=== PATIENT | female | born 1935 | race Caucasian/White ===

== ENCOUNTER 2017-02-28 21:30 | Observation (INO) | payer OTHER, MEDICARE ==
[~2017-02-28] VITALS: Ht 154.9 cm; Wt 47.6 kg
[2017-02-28] MEDS: DOCUSATE SODIUM 50 MG/SENNA 8.6 MG TAB PO SCH (21:00)
[2017-02-28 21:30] VITALS: BP 127/79; PULSE 79; RESP 16; TEMP 97; O2SAT 95
[~2017-02-28 21:30] MED LIST: ALPR.25 PO; BISACODYL 10 MG SUPP RECTAL PRN; BUME2TAB PO; CARV3.125 PO; LACTULOSE SYRUP 20 GM/30 ML CUP PO PRN; MAGNESIUM HYDROXIDE SUSP 30 ML CUP PO PRN; ONDANSETRON HCL 4 MG/2 ML VIAL IVP PRN; POTA10CA PO; PROT40TA PO; SENNOSIDES 8.6 MG TAB PO PRN; SODIUM CHLORIDE 0.9% FLUSH 10 ML FLUSH IV FLUSH PRN
[2017-02-28 22:00] VITALS: O2SAT 97
[2017-02-28] MEDS ORDERED: TEMAZEPAM 15 MG CAP PO ONE (22:15)
[2017-03-01] MEDS: ENOXAPARIN SODIUM 40 MG/0.4 ML SYRINGE SQ SCH ×2 (00:12→22:07)
[2017-03-01] MEDS: cefTRIAXone INJ 1,000 MG in SODIUM CHLORIDE 0.9% INJ 100 ML IV SCH ×2 (00:12→22:07)
[2017-03-01] MEDS: SODIUM CHLORIDE 0.9% FLUSH 10 ML FLUSH IV FLUSH SCH ×3 (00:13→20:12)
[2017-03-01 01:16] VITALS: BP 121/68; PULSE 83; RESP 18; TEMP 96.4; O2SAT 99
[2017-03-01] MEDS: SODIUM CHLOR 0.9% 1000 ML INJ 1,000 ML IV SCH ×4 (05:02→23:50)
[2017-03-01 07:40] LABS: CHLORIDE 100 MEQ/L (98-107); POTASSIUM 3.4 MEQ/L (3.5-5.1); SODIUM (NA) 144 MEQ/L (136-145)
[2017-03-01 07:43] LABS: ANION GAP 10 MEQ/L (5-15); BICARBONATE 34.4 MEQ/L (21.0-32.0)
[2017-03-01 07:44] LABS: BLOOD UREA NITROGEN 45 MG/DL (7-18)
[2017-03-01 07:46] LABS: ALT (GPT) 21 U/L (10-53); AST (GOT) 23 U/L (15-37)
[2017-03-01 07:47] LABS: GLOMERULAR FILTRATION RATE 36 ML/MIN (>89)
[2017-03-01 07:48] LABS: TOTAL BILIRUBIN ADULT 0.9 MG/DL (0.2-1.0)
[2017-03-01 07:49] LABS: ALKALINE PHOSPHATASE 56 U/L (45-117)
[2017-03-01] MEDS: DOCUSATE SODIUM 50 MG/SENNA 8.6 MG TAB PO SCH ×2 (08:15→20:14)
[2017-03-01] MEDS: ACETAMINOPHEN 325 MG TAB PO PRN (08:22)
[2017-03-01 08:44] VITALS: BP 113/79; PULSE 79; RESP 16; TEMP 96.4; O2SAT 100
[2017-03-01 10:31] VITALS: O2SAT 95
[2017-03-01] MEDS ORDERED: DIGO0.12 PO (11:58)
[2017-03-01] MEDS ORDERED: CARVEDILOL 3.125 MG TAB PO SCH (12:00)
[2017-03-01] MEDS ORDERED: BELLADONNA ALKALOIDS/OPIUM 60 MG SUPP RECTAL ONE (12:15)
[2017-03-01] MEDS ORDERED: OXYBUTYNIN CHLORIDE 5 MG TAB PO ONE (12:30)
--- NOTE | 2017-03-01 12:42 | HHI.HP ---
[facility] Non-Staff Admission Diagnosis Diagnoses: Chief Complaint: urinary complaints, tired Travel History International Travel<30 Days: No Contact w/Intl Traveler <30 Da: No Traveled to Known Affected Are: No History of Present Illness 82 yo F with PMH of recurrent UTIs, HTN, HLD, Afib who came to the [place] ER department for further evaluation. Patient complaints of urinary frequency, pain with urination, suprapubic pain. She was recently in the hospital with the same provblems and she was discharged from SNF recently. The patient feels weak and not able to walk much. She has no fever, she complaints of chills at times. She is also nauseated but did not vomit. No diarrhea or constipation. The patient is a poor historian, history is obtained from the patient, daughter and records. Review of Systems ROS Limitations: Clinical Condition, Poor Historian Except as stated in HPI: all other systems reviewed are Neg Past Family Social History Past Medical History AFib, HNT, GERD, HLD, frequent UTIs Past Surgical History CS Allergies: Uncoded Allergies: antipsycotics (Allergy, Intermediate, Confusion, 03/01/17) Family History Heart problems runs in family. No h/o cancer or strokes. Social History Used to smoke, quit 40 years ago. No EtOH use or illicit drug use. Physical Exam Vital Signs Vital Signs Date Time Temp Pulse Resp B/P Pulse Ox O2 Delivery O2 Flow Rate FiO2 03/01/17 10:31 95 21 03/01/17 09:22 20 03/01/17 08:44 96.4 79 16 113/79 100 03/01/17 05:56 03/01/17 01:16 96.4 83 18 121/68 99 02/28/17 22:00 97 21 02/28/17 21:30 97.0 79 16 127/79 95 Physical Exam GENERAL: This is a skinny elderly female, well-nourished, well-developed patient , in no apparent distress. SKIN: No rashes, ecchymoses or lesions. Cool and dry. HEAD: Atraumatic. Normocephalic. No temporal or scalp tenderness. EYES: Pupils equal round and reactive. Extraocular motions intact. No scleral icterus. No injection or drainage. ENT: Nose without bleeding, purulent drainage or septal hematoma. Throat without erythema, tonsillar hypertrophy or exudate. Uvula midline. Airway patent. NECK: Trachea midline. No JVD or lymphadenopathy. Supple, nontender, no meningeal signs. CARDIOVASCULAR: Regular rate and rhythm without murmurs, gallops, or rubs. RESPIRATORY: Clear to auscultation. Breath sounds equal bilaterally. No wheezes , rales, or rhonchi. GASTROINTESTINAL: Abdomen soft, non-tender, nondistended. No hepato-splenomegaly , or palpable masses. Suprapubic pain, distended bladder. No guarding. MUSCULOSKELETAL: Extremities without clubbing, cyanosis, or edema. No joint tenderness, effusion, or edema noted. No calf tenderness. Negative Homans sign bilaterally. NEUROLOGICAL: Awake and alert. Cranial nerves II through XII intact. Motor and sensory grossly within normal limits. Five out of 5 muscle strength in all muscle groups. Normal speech. Laboratory Laboratory Tests Test 03/01/17 06:45 Sodium Level 144 Potassium Level 3.4 Chloride Level 100 Carbon Dioxide Level 34.4 Anion Gap 10 Blood Urea Nitrogen 45 Creatinine 1.40 Estimat Glomerular Filtration 36 Rate Random Glucose 90 Calcium Level 8.9 Total Bilirubin 0.9 Aspartate Amino Transf 23 (AST/SGOT) Alanine Aminotransferase 21 (ALT/SGPT) Alkaline Phosphatase 56 Total Protein 6.4 Albumin 2.8 Result Diagram: 03/01/17 0645 Assessment and Plan Assessment and Plan 82 yo F with : Recurrent UTIs. Without urosepsis Urinary retention WALESKA poss on CKD, however unknown kidney baseline. On IVF. Monitor Received Zosyn in the ED. Will give rocephin IV Urine cultures, blood cultures obtained in the ER and pending Patient with urinary retention, will do straight cath, will consult urology. Will give ditropan. Will give one dose rectal belladona Continue IVF. Monitor Urine OP. Chronic medical problems HTN, HLD, Afib, GERD appears stable at this time. Resume home meds. Discussed with the daughter, patient takes coreg once a day and also takes Physical deconditioning. Consult PT. Discussed Condition With patient, nurse, pt. daughter, ED physician Ni Lopez MD 8, 2017 12:42
[2017-03-01] MEDS ORDERED: POTASSIUM CHLORIDE 10 MEQ CONTROLLED RELEASE TAB PO ONE (13:00)
[2017-03-01] MEDS ORDERED: DIGOXIN 0.125 MG TAB PO SCH (13:00)
[2017-03-01 13:22] VITALS: BP 128/79; PULSE 78; RESP 16; TEMP 96.2; O2SAT 98
[2017-03-01] MEDS: BUMETANIDE 1 MG TAB PO SCH ×3 (14:07→21:00)
[2017-03-01] MEDS: ALPRAZolam 0.25 MG TAB PO SCH ×2 (14:07→20:14)
[2017-03-01] MEDS: PANTOPRAZOLE SOD 40 MG DELAYED RELEASE TAB PO SCH ×2 (14:07→20:14)
[2017-03-01 18:04] VITALS: BP 101/61; PULSE 71; RESP 18; TEMP 96.8; O2SAT 99
--- NOTE | 2017-03-01 19:41 | PD.CONS ---
HPI Service Urology Consult Requested By Reason for Consult UTI, retention Primary Care Physician Non-Staff Diagnosis: History of Present Illness 82yo female transferred from [place] ED with history of HTN and afib admitted for UTI seen in consultation for urinary retention. Patient reports frequency with urgency and incontinence. Unclear timeframe as patient is Rwandan speaking and poor historian. Her symptoms began several days ago and has progressively worsened with lower abdominal pain. No fevers. No hematuria. Review of Systems ROS Limitations: Clinical Condition Constitutional: DENIES: Fever Endocrine: DENIES: Heat/cold intolerance Eyes: DENIES: Blurred vision Ears, nose, mouth, throat: DENIES: Hearing loss Respiratory: DENIES: Cough Cardiovascular: DENIES: Chest pain Gastrointestinal: COMPLAINS OF: Abdominal pain Genitourinary: COMPLAINS OF: Urinary frequency, Urinary incontinence, Urgency, Dysuria Musculoskeletal: DENIES: Back pain Hematologic/lymphatic: DENIES: Bruising Neurologic: DENIES: Headache Psychiatric: DENIES: Anxiety Except as stated in HPI: all other systems reviewed are Neg Past Family Social History Past Medical History AFib HTN GERD HLD Recurrent UTIs Past Surgical History Reported Medications Reported Meds & Active Scripts Active Reported Digoxin 0.125 Mg Tab 0.125 Mg PO HS Protonix (Pantoprazole Sodium) 40 Mg Tab 40 Mg PO BID Coreg (Carvedilol) 3.125 Mg Tab 3.125 Mg PO BID Potassium Chloride ER (Potassium Chloride) 10 Meq Cap 10 Meq PO DAILY Bumetanide 2 Mg Tab 2 Mg PO BID Xanax (Alprazolam) 0.25 Mg Tab 0.25 Mg PO BID Allergies: Uncoded Allergies: antipsycotics (Allergy, Intermediate, Confusion, 03/01/17) Active Ordered Medications Current Medications Medications (Trade) Dose Ordered Sig/Arlet Route Start Time Stop Time Status Last Admin (NS 1000 ml Inj) 1,000 ml @ 100 mls/hr Q10H IV 02/28/17 20:37 03/01/17 13:41 (NS Flush) 2 ml UNSCH PRN IV FLUSH 02/28/17 20:45 (NS Flush) 2 ml BID IV FLUSH 02/28/17 21:00 03/01/17 00:13 (Tylenol) 650 mg Q4H PRN PO 02/28/17 20:45 03/01/17 08:22 (Zofran Inj) 4 mg Q6H PRN IVP 02/28/17 20:45 (Lovenox Inj) 40 mg Q24H SQ 02/28/17 22:00 03/01/17 00:12 (Steph-Colace) 1 tab BID PO 02/28/17 21:00 03/01/17 08:15 (Milk Of Magnesia Liq) 30 ml Q12H PRN PO 02/28/17 20:45 (Senokot) 17.2 mg Q12H PRN PO 02/28/17 20:45 (Dulcolax Supp) 10 mg DAILY PRN RECTAL 02/28/17 20:45 Lactulose 30 ml 30 ml DAILY PRN PO 02/28/17 20:45 (Rocephin Inj/NS Inj) 100 ml @ 200 mls/hr Q24H IV 02/28/17 22:00 03/01/17 00:12 (Restoril) 15 mg HS PRN PO 02/28/17 22:15 (Xanax) 0.25 mg BID PO 03/01/17 13:00 03/01/17 14:07 (Bumetanide) 2 mg BID PO 03/01/17 13:00 03/01/17 14:07 (Protonix) 40 mg BID PO 03/01/17 13:00 03/01/17 14:07 (KCl) 10 meq DAILY PO 03/02/17 09:00 (Coreg) 3.125 mg DAILY PO 03/02/17 09:00 (Lanoxin) 0.125 mg DAILY PO 03/01/17 13:00 03/01/17 14:08 (Ditropan) 5 mg Q8HR PO 03/01/17 22:00 Family History CAD in family. No h/o cancer or strokes. Social History Used to smoke, quit 40 years ago. No EtOH use or illicit drug use Physical Exam Vital Signs Date Time Temp Pulse Resp B/P Pulse Ox O2 Delivery O2 Flow Rate FiO2 03/01/17 18:04 96.8 71 18 101/61 99 03/01/17 13:22 96.2 78 16 128/79 98 03/01/17 10:31 95 21 03/01/17 09:22 20 03/01/17 08:44 96.4 79 16 113/79 100 03/01/17 05:56 03/01/17 01:16 96.4 83 18 121/68 99 02/28/17 22:00 97 21 02/28/17 21:30 97.0 79 16 127/79 95 Physical Exam GENERAL: This is a well-nourished, well-developed patient, in no apparent distress. SKIN: No rashes, ecchymoses or lesions. Cool and dry. HEAD: Atraumatic. Normocephalic. EYES: Extraocular motions intact. No scleral icterus. No injection or drainage. ENT: Nose without bleeding, purulent drainage. Airway patent. NECK: Trachea midline. No JVD or lymphadenopathy. CARDIOVASCULAR: Extremities well perfused RESPIRATORY: nonlabored, equal chest rise GASTROINTESTINAL: nondistended MUSCULOSKELETAL: Extremities without clubbing, cyanosis NEUROLOGICAL: Awake and alert. Motor and sensory grossly within normal limits. Normal speech. Lab results reviewed: Yes Laboratory Tests Test 03/01/17 06:45 Sodium Level 144 Potassium Level 3.4 Chloride Level 100 Carbon Dioxide Level 34.4 Anion Gap 10 Blood Urea Nitrogen 45 Creatinine 1.40 Estimat Glomerular Filtration 36 Rate Random Glucose 90 Calcium Level 8.9 Total Bilirubin 0.9 Aspartate Amino Transf 23 (AST/SGOT) Alanine Aminotransferase 21 (ALT/SGPT) Alkaline Phosphatase 56 Total Protein 6.4 Albumin 2.8 Result Diagram: 03/01/17 0645 Assessment and Plan Problem List: (1) Urinary tract infection ICD Code: N39.0 Status: Acute Assessment and Plan 82yo female with recurrent UTIs and significant lower urinary tract symptoms -Continue antibiotics -Bladder scans show greater than 500cc post-void -Patient may be having overflow incontinence due to elevated bladder scan and urinary symptoms, unlikely completely emptying her bladder, therefore leading to recurrent infections -Stop oxybutynin -Re-check PVR after void. If greater than 400-500cc recommend placing jorge catheter -Patient may be discharged with catheter in place with follow-up with Urology for further evaluation regarding her urinary symptoms and recurrent infections -Please call with questions Robson Frost MD Mar 01, 2017 19:41
[2017-03-01 20:26] VITALS: BP 103/58; PULSE 79; RESP 18; TEMP 98; O2SAT 96
[2017-03-01] MEDS: DIGOXIN 0.125 MG TAB PO SCH ×2 (21:00→22:07)
[2017-03-01] MEDS ORDERED: OXYBUTYNIN CHLORIDE 5 MG TAB PO SCH (22:00)
[2017-03-02] VITALS (7 sets, daily range): BP systolic 95–128; BP diastolic 54–91; PULSE 66–76; RESP 15–20; TEMP 96.3–98.8; O2SAT 95–99
[2017-03-02 05:54] LABS: BASOPHIL # 0.1 TH/MM3 (0-0.2); BASOPHIL % 1.3 % (0.0-2.0); EOSINOPHIL # 0.1 TH/MM3 (0-0.4); EOSINOPHIL % 2.5 % (0.0-4.0); HEMATOCRIT 30.4 % (35.0-46.0); HEMO FLAGS DIFF FINAL; LYMPH % 37.4 % (9.0-44.0); LYMPHOCYTE # 1.5 TH/MM3 (1.0-4.8); MEAN CELL VOLUME 93.8 FL (80.0-100.0); MONO % 8.5 % (0.0-8.0); NEUT % 50.3 % (16.0-70.0); PLATELET COUNT 289 TH/MM3 (150-450); RED BLOOD COUNT 3.24 MIL/MM3 (4.00-5.30); RED CELL DISTRIBUTION WIDTH 14.3 % (11.6-17.2)
[2017-03-02 05:55] LABS: POTASSIUM 3.1 MEQ/L (3.5-5.1)
[2017-03-02 05:58] LABS: BICARBONATE 33.4 MEQ/L (21.0-32.0)
[2017-03-02] MEDS: SODIUM CHLORIDE 0.9% FLUSH 10 ML FLUSH IV FLUSH SCH ×2 (09:00→22:28)
[2017-03-02] MEDS ORDERED: POTASSIUM CHLORIDE 20 MEQ CONTROLLED RELEASE TAB PO ONE (09:00)
[2017-03-02] MEDS: POTASSIUM CHLORIDE 10 MEQ CAP PO SCH (09:18)
[2017-03-02] MEDS: CARVEDILOL 3.125 MG TAB PO SCH (09:18)
[2017-03-02] MEDS: DOCUSATE SODIUM 50 MG/SENNA 8.6 MG TAB PO SCH ×2 (09:18→21:00)
[2017-03-02] MEDS: PANTOPRAZOLE SOD 40 MG DELAYED RELEASE TAB PO SCH ×2 (09:18→22:27)
[2017-03-02] MEDS: ALPRAZolam 0.25 MG TAB PO SCH ×2 (09:18→22:28)
[2017-03-02] MEDS: ACETAMINOPHEN 325 MG TAB PO PRN (09:19)
[2017-03-02] MEDS: BUMETANIDE 1 MG TAB PO SCH ×2 (09:19→21:00)
[2017-03-02] MEDS: NS + KCL 20 MEQ INJ 1,000 ML IV SCH ×2 (09:20→18:10)
--- NOTE | 2017-03-02 12:16 | HHI.PR ---
Subjective Remarks In bed, has jorge in. Says she has no more pain after the jorge was placed. No fever or chills. Feels nauseated, did not eat much . No fever or chills. No chest pain or sob. Objective Vitals Vital Signs Date Time Temp Pulse Resp B/P Pulse Ox O2 Delivery O2 Flow Rate FiO2 03/02/17 10:22 98 21 03/02/17 10:19 20 03/02/17 09:32 96.3 70 16 115/66 98 03/02/17 04:51 03/02/17 00:10 98.8 66 16 95/60 99 03/01/17 20:33 21 03/01/17 20:26 98.0 79 18 103/58 96 03/01/17 18:04 96.8 71 18 101/61 99 03/01/17 13:22 96.2 78 16 128/79 98 I/O 03/01/17 03/01/17 03/01/17 03/02/17 03/02/17 03/02/17 07:00 15:00 23:00 07:00 15:00 23:00 Intake Total 2000 ml 2018 ml 783 ml Output Total 518 ml 1400 ml 1000 ml Balance 1482 ml 2018 ml -617 ml -1000 ml Intake Oral 600 ml IV Total 1400 ml 2018 ml 783 ml Output Urine Total 518 ml 1400 ml 1000 ml Bladder Scan Volume Amount 519 ml 892 ml # Voids 3 4 Result Diagram: 03/02/17 0538 03/02/17 0538 Objective Remarks GENERAL: This is a skinny elderly female, well-nourished, well-developed patient , in no apparent distress. CARDIOVASCULAR: Regular rate and rhythm without murmurs, gallops, or rubs. RESPIRATORY: Clear to auscultation. Breath sounds equal bilaterally. No wheezes , rales, or rhonchi. GASTROINTESTINAL: Abdomen soft, non-tender, nondistended. Suprapubic pain, improved. No guarding. MUSCULOSKELETAL: Extremities without clubbing, cyanosis, or edema. No joint tenderness, effusion, or edema noted. No calf tenderness. Negative Homans sign bilaterally. NEUROLOGICAL: Awake and alert. Cranial nerves II through XII intact. Motor and sensory grossly within normal limits. Five out of 5 muscle strength in all muscle groups. Normal speech. A/P Assessment and Plan 82 yo F with : Recurrent UTIs. Without urosepsis Urinary retention WALESKA poss on CKD, however unknown kidney baseline. On IVF. Monitor Received Zosyn in the ED. Will give rocephin IV Urine cultures, blood cultures obtained in the ER and pending Patient with urinary retention, jorge placed, continue jorge at DC per urology. Consult urology seen by Dr Frost, appreciate recommendations. Continue jorge at DC to follow up as OP with urology. Continue IVF decrease rate. Monitor Urine OP. Chronic medical problems HTN, HLD, Afib, GERD appears stable at this time. Resume home meds. Discussed with the daughter, patient takes coreg once a day and also takes Physical deconditioning. Consult PT. Discussed Condition With patient, nurse Ni Lopez MD Mar 02, 2017 12:16
[2017-03-02] MEDS: DIGOXIN 0.125 MG TAB PO SCH (22:28)
[2017-03-02] MEDS: ENOXAPARIN SODIUM 40 MG/0.4 ML SYRINGE SQ SCH (22:29)
[2017-03-02] MEDS: TEMAZEPAM 15 MG CAP PO PRN (22:29)
[2017-03-02] MEDS: cefTRIAXone INJ 1,000 MG in SODIUM CHLORIDE 0.9% INJ 100 ML IV SCH (22:29)
[2017-03-02] MEDS ORDERED: MORPHINE SULFATE 8 MG/ML INJ IV PUSH ONE (22:45)
[2017-03-03] VITALS: BP 126/72; PULSE 77; RESP 20; TEMP 96.2; O2SAT 100
[2017-03-03] MEDS: NS + KCL 20 MEQ INJ 1,000 ML IV SCH (04:45)
[2017-03-03 05:33] LABS: POTASSIUM 3.7 MEQ/L (3.5-5.1)
[2017-03-03 05:37] LABS: BICARBONATE 32.9 MEQ/L (21.0-32.0); MAGNESIUM 1.4 MG/DL (1.5-2.5)
[2017-03-03 05:53] VITALS: BP 124/76; PULSE 79; RESP 20; TEMP 96
[2017-03-03 05:57] LABS: AUTOMATED NEUTROPHIL # 2.3 TH/MM3 (1.8-7.7); BASOPHIL % 0.8 % (0.0-2.0); EOSINOPHIL # 0.1 TH/MM3 (0-0.4); EOSINOPHIL % 2.7 % (0.0-4.0); HEMATOCRIT 31.7 % (35.0-46.0); HEMO FLAGS DIFF FINAL; LYMPHOCYTE # 1.7 TH/MM3 (1.0-4.8); MEAN CELL VOLUME 94.5 FL (80.0-100.0); MEAN CORPUSCULAR HGB CONC 32.8 % (32.0-36.0); MONO % 8.3 % (0.0-8.0); NEUT % 50.2 % (16.0-70.0); PLATELET COUNT 301 TH/MM3 (150-450); RED BLOOD COUNT 3.35 MIL/MM3 (4.00-5.30); RED CELL DISTRIBUTION WIDTH 14.5 % (11.6-17.2); WHITE BLOOD COUNT 4.5 TH/MM3 (4.0-11.0)
[2017-03-03] MEDS ORDERED: HEPARIN-D5W INJ 250 ML IV SCH (06:15)
[2017-03-03 07:06] LABS: APTT (PATIENT) 24.9 SEC (24.3-30.1); PROTHROMBIN TIME - PATIENT 11.4 SEC (9.8-11.6)
[2017-03-03 08:53] VITALS: BP 136/87; PULSE 86; RESP 19; TEMP 98.6; O2SAT 99
[2017-03-03] MEDS: MAGNESIUM SULFATE 1 GM PREMIX 100 ML IV SCH ×2 (09:00→09:54)
[2017-03-03] MEDS: BUMETANIDE 1 MG TAB PO SCH ×2 (09:00→20:19)
[2017-03-03] MEDS: PANTOPRAZOLE SOD 40 MG DELAYED RELEASE TAB PO SCH ×2 (09:53→20:18)
[2017-03-03] MEDS: POTASSIUM CHLORIDE 10 MEQ CAP PO SCH (09:53)
[2017-03-03] MEDS: SODIUM CHLORIDE 0.9% FLUSH 10 ML FLUSH IV FLUSH SCH ×2 (09:53→20:19)
[2017-03-03] MEDS: DOCUSATE SODIUM 50 MG/SENNA 8.6 MG TAB PO SCH ×2 (09:53→20:18)
[2017-03-03] MEDS: ALPRAZolam 0.25 MG TAB PO SCH ×2 (09:53→20:18)
[2017-03-03] MEDS: CARVEDILOL 3.125 MG TAB PO SCH (09:53)
--- NOTE | 2017-03-03 10:25 | HHI.PR ---
Subjective Remarks Patient complained of chest pain overnight. Trops elevated , started on heparin drip, 2D ECHO pending, no ischemic changes on EKG, cardiology consulted. Patient was seen early childhood director today. Says josep doesn't have any chest pain at this time. She doesn't recall having chest pain overnight. Says she feels much better today. She denies diaphoresis, sob, palpitations, n/v/d/c. Eating better with assistance. Objective Vitals Vital Signs Date Time Temp Pulse Resp B/P Pulse Ox O2 Delivery O2 Flow Rate FiO2 03/03/17 08:53 98.6 86 19 136/87 99 03/03/17 05:53 96.0 79 20 124/76 03/03/17 00:00 96.2 77 20 126/72 100 03/02/17 20:00 97 21 03/02/17 20:00 96.5 76 20 118/77 97 03/02/17 18:09 96.8 73 16 98/54 96 03/02/17 12:30 96.5 70 15 102/60 95 03/02/17 10:22 98 21 I/O 03/02/17 03/02/17 03/02/17 03/03/17 03/03/17 03/03/17 07:00 15:00 23:00 07:00 15:00 23:00 Intake Total 783 ml 700 ml 860 ml Output Total 1400 ml 1675 ml 975 ml Balance -617 ml -975 ml -115 ml Intake Oral 860 ml IV Total 783 ml 700 ml Output Urine Total 1400 ml 1675 ml 975 ml # Bowel Movements 1 Result Diagram: 03/03/17 0502 03/03/17 0502 Objective Remarks GENERAL: This is a skinny elderly female, well-nourished, well-developed patient , in no apparent distress. CARDIOVASCULAR: Regular rate and rhythm without murmurs, gallops, or rubs. RESPIRATORY: Clear to auscultation. Breath sounds equal bilaterally. No wheezes , rales, or rhonchi. GASTROINTESTINAL: Abdomen soft, non-tender, nondistended. Suprapubic pain, improved. No guarding. MUSCULOSKELETAL: Extremities without clubbing, cyanosis, or edema. No joint tenderness, effusion, or edema noted. No calf tenderness. Negative Homans sign bilaterally. NEUROLOGICAL: Awake and alert. Cranial nerves II through XII intact. Motor and sensory grossly within normal limits. Five out of 5 muscle strength in all muscle groups. Normal speech. A/P Assessment and Plan 82 yo F with : Recurrent UTIs. Without urosepsis Urinary retention WALESKA poss on CKD, however unknown kidney baseline. On IVF. Monitor Received Zosyn in the ED. Will give rocephin IV Urine cultures, blood cultures obtained in the ER and pending Patient with urinary retention, jorge placed, continue jorge at DC per urology. Consult urology seen by Dr Frost, appreciate recommendations. Continue jorge at DC to follow up as OP with urology. Continue IVF decrease rate. Monitor Urine OP. Chest pain overnight 03/03. Elevated troponin, 0.06--> 0.14 started on heparin drip, 2D ECHO pending, no ischemic changes on EKG, cardiology consulted. Chronic medical problems HTN, HLD, Afib, GERD appears stable at this time. Resume home meds. Discussed with the daughter, patient takes coreg once a day and also takes Physical deconditioning. Consult PT. Discussed Condition With patient, nurse, case management Poss DC to SNF if cleared by cardiology. Case management consulted for DC plan. Ni Lopez MD Mar 03, 2017 10:25
[2017-03-03] MEDS ORDERED: SENN1TAB PO (10:27)
[2017-03-03] MEDS ORDERED: ALPR.25 PO (10:27)
[2017-03-03] MEDS ORDERED: BUME2TAB PO (10:27)
--- NOTE | 2017-03-03 10:30 | HHI.DS ---
Discharge Summary Admission Date Feb 28, 2017 at 21:35 Admitting Diagnosis Brief History - From Admission 82 yo F with PMH of recurrent UTIs, HTN, HLD, Afib who came to the [place] ER department for further evaluation. Patient complaints of urinary frequency, pain with urination, suprapubic pain. She was recently in the hospital with the same provblems and she was discharged from SNF recently. The patient feels weak and not able to walk much. She has no fever, she complaints of chills at times. She is also nauseated but did not vomit. No diarrhea or constipation. The patient is a poor historian, history is obtained from the patient, daughter and records. CBC/BMP: 03/03/17 0502 03/03/17 0502 Significant Findings Laboratory Tests Test 03/01/17 03/02/17 03/02/17 03/03/17 06:45 05:38 22:59 05:02 Potassium Level 3.4 MEQ/L 3.1 MEQ/L (3.5-5.1) (3.5-5.1) Carbon Dioxide Level 34.4 MEQ/L 33.4 MEQ/L 32.9 MEQ/L (21.0-32.0) (21.0-32.0) (21.0-32.0) Blood Urea Nitrogen 45 MG/DL (7-18) 33 MG/DL (7-18) 24 MG/DL (7-18) Creatinine 1.40 MG/DL (0.50-1.00) Estimat Glomerular Filtration 36 ML/MIN (>89) 57 ML/MIN (>89) 75 ML/MIN (>89) Rate Albumin 2.8 GM/DL (3.4-5.0) Red Blood Count 3.24 MIL/MM3 3.35 MIL/MM3 (4.00-5.30) (4.00-5.30) Hemoglobin 10.0 GM/DL 10.4 GM/DL (11.6-15.3) (11.6-15.3) Hematocrit 30.4 % 31.7 % (35.0-46.0) (35.0-46.0) Monocytes (%) (Auto) 8.5 % (0.0-8.0) 8.3 % (0.0-8.0) Sodium Level 146 MEQ/L 148 MEQ/L (136-145) (136-145) Calcium Level 8.4 MG/DL (8.5-10.1) Troponin I 0.06 NG/ML 0.14 NG/ML (0.02-0.05) (0.02-0.05) Chloride Level 109 MEQ/L (98-107) Magnesium Level 1.4 MG/DL (1.5-2.5) Ni Lopez MD Mar 03, 2017 10:30 CARDIOVASCULAR: Regular rate and rhythm without murmurs, gallops, or rubs. RESPIRATORY: Clear to auscultation. Breath sounds equal bilaterally. No wheezes , rales, or rhonchi. GASTROINTESTINAL: Abdomen soft, non-tender, nondistended. Suprapubic pain, improved. No guarding. MUSCULOSKELETAL: Extremities without clubbing, cyanosis, or edema. No joint tenderness, effusion, or edema noted. No calf tenderness. Negative Homans sign bilaterally. NEUROLOGICAL: Awake and alert. Cranial nerves II through XII intact. Motor and sensory grossly within normal limits. Five out of 5 muscle strength in all muscle groups. Normal speech. Ni Lopez MD Mar 03, 2017 10:30
[2017-03-03] MEDS: 1/2 NS + KCL 20 MEQ INJ 1,000 ML IV SCH ×2 (11:00→22:55)
[2017-03-03 12:52] VITALS: BP 101/71; PULSE 83; RESP 19; TEMP 98.6; O2SAT 99
--- NOTE | 2017-03-03 13:30 | EKG ---
Date Performed: 03/03/2017 Time Performed: 05:14:06 PTAGE: 82 years EKG: Sinus rhythm NONSPECIFIC ST & T-WAVE ABNORMALITY BORDERLINE ECG Compared to prior tracing no significant change PREVIOUS TRACING : 03/02/2017 22.47 DOCTOR: Omar Ndiaye Interpretating Date/Time 03/03/2017 13:27:35
--- NOTE | 2017-03-03 13:31 | EKG ---
Date Performed: 03/02/2017 Time Performed: 22:47:11 PTAGE: 82 years EKG: Sinus rhythm NONSPECIFIC ST & T-WAVE ABNORMALITY BORDERLINE ECG NO PREVIOUS TRACING DOCTOR: Omar Ndiaye Interpretating Date/Time 03/03/2017 13:27:48
[2017-03-03 16:06] VITALS: PULSE 80
[2017-03-03 17:01] VITALS: BP 113/77; PULSE 103; RESP 19; TEMP 95.7; O2SAT 99
[2017-03-03] MEDS: ACETAMINOPHEN 325 MG TAB PO PRN (18:05)
[2017-03-03 19:58] LABS: APTT (PATIENT) 36.7 SEC (24.3-30.1)
[2017-03-03] MEDS: cefTRIAXone INJ 1,000 MG in SODIUM CHLORIDE 0.9% INJ 100 ML IV SCH (20:18)
[2017-03-03] MEDS: DIGOXIN 0.125 MG TAB PO SCH (20:19)
[2017-03-04] VITALS: BP 105/72; PULSE 69; RESP 16; TEMP 96.1; O2SAT 96
--- NOTE | 2017-03-04 08:02 | MB ---
cc: SHARON KENNY M.D. DATE OF CONSULTATION REASON FOR CONSULTATION Chest pain. Possible angina. HISTORY OF PRESENT ILLNESS Ms. Franco is an 82-year-old female with a history of atrial fibrillation, high blood pressure, hyperlipidemia and dementia who was admitted through the emergency room due to UTI. During the hospitalization troponin increased. [id number] RI was suspected. I was consulted for further evaluation and management. The chart was reviewed. The patient was evaluated. I did have a long conversation with the patient in Irish. ALLERGIES ANTIPSYCHOTICS. SOCIAL HISTORY The patient quit smoking 40 years ago. FAMILY HISTORY Noncontributory to her current medical condition. MEDICATIONS 1. Heparin. 2. Ceftriaxone. 3. Digoxin. 4. Coreg. 5. Bumex. 6. Lactulose. 7. Restoril. REVIEW OF SYSTEMS The patient refers no chest pain, no chest discomfort. She wants to go home. PHYSICAL EXAMINATION GENERAL: Alert. The patient is not completely oriented. The patient believes currently she is at her mother's house in [place]. VITAL SIGNS: Blood pressure is 137/77, pulse 80, respiratory rate 18. LUNGS: Ventilated. CARDIOVASCULAR: S1-S2, regular. No gallop. ABDOMEN: Soft. No mass. No bruit. EXTREMITIES: No edema. ELECTROCARDIOGRAM Sinus rhythm. No active ST and T-wave changes. LABORATORY DATA Hemoglobin is 10.4, white blood cell 4.5, potassium 3.7, creatinine 0.74. Troponin 0.14. INR 1.0. ASSESSMENT AND RECOMMENDATIONS Mrs. Franco refers no chest pain. She has dementia. She cannot follow properly any education. She is asymptomatic. Troponin is only 0.14. At this point my recommendation is to discontinue heparin. Continue current management. If the patient is stable in the morning and asymptomatic, she can be discharged home and followup by primary care physician. I will be available on a p.r.n. basis. The patient is not a good candidate for any invasive procedure. Sharon Kenny MD HS/SSB /11:32 PM /7:55 AM
[2017-03-04] MEDS ORDERED: DONE5TAB7 PO (08:41)
[2017-03-04] MEDS: SODIUM CHLORIDE 0.9% FLUSH 10 ML FLUSH IV FLUSH SCH ×2 (08:54→20:47)
[2017-03-04] MEDS: BUMETANIDE 1 MG TAB PO SCH ×2 (08:54→21:00)
[2017-03-04] MEDS: DOCUSATE SODIUM 50 MG/SENNA 8.6 MG TAB PO SCH ×2 (08:55→21:00)
[2017-03-04] MEDS: PANTOPRAZOLE SOD 40 MG DELAYED RELEASE TAB PO SCH ×2 (08:55→21:00)
[2017-03-04] MEDS: CARVEDILOL 3.125 MG TAB PO SCH (08:55)
[2017-03-04] MEDS: POTASSIUM CHLORIDE 10 MEQ CAP PO SCH (08:55)
[2017-03-04] MEDS: ALPRAZolam 0.25 MG TAB PO SCH ×2 (08:55→21:00)
[2017-03-04 08:56] VITALS: BP 123/75; PULSE 82; RESP 19; TEMP 96.5; O2SAT 98
[2017-03-04] MEDS: 1/2 NS + KCL 20 MEQ INJ 1,000 ML IV SCH (10:50)
[2017-03-04] MEDS ORDERED: COMMODE 3-IN-11 MIS (11:05)
[2017-03-04] MEDS ORDERED: WALKER WHEELS/F1 MIS (11:05)
[2017-03-04] MEDS ORDERED: HOSP BED1 (11:05)
[2017-03-04] MEDS ORDERED: ASPI81CH CHEW (11:14)
--- NOTE | 2017-03-04 11:14 | HHI.FF ---
Face to Face Verification Diagnosis: (1) CHF (congestive heart failure) (2) Urinary tract infection (3) Atrial fibrillation (4) Hyperlipidemia (5) Hypertension (6) Elevated troponin (7) Urinary retention (8) Dementia Physical Therapy Order: Evaluate and Treat Home Health Nursing Order: Medical education Signs/symptoms of disease process CHF education Medication education-adverse effect Nursing assessment with vital signs I have seen patient Adilia Franco on 03/04/17. My clinical findings support the need for the requested home health care services because: Ltd mobility - disease progression Patient has SOB Deconditioned w/ increased weakness I certify that my clinical findings support that this patient is homebound because: Post-op weakness Impaired cognitive ability/safety Unsteady gait/balance Ni Lopez MD Mar 04, 2017 11:14
--- NOTE | 2017-03-04 12:25 | HHI.PR ---
Subjective Remarks Denies having any chest pain. She is however confused and says she is in [place]. No fever or chills. No n/v/d/c. Denies n/v/d/c. She is not eating. Patient is also noted on/off agitated. Objective Vitals Vital Signs Date Time Temp Pulse Resp B/P Pulse Ox O2 Delivery O2 Flow Rate FiO2 03/04/17 08:56 96.5 82 19 123/75 98 03/04/17 00:00 96.1 69 16 105/72 96 03/03/17 19:26 18 03/03/17 17:01 95.7 103 19 113/77 99 03/03/17 16:06 80 03/03/17 12:52 98.6 83 19 101/71 99 I/O 03/03/17 03/03/17 03/03/17 03/04/17 03/04/17 03/04/17 07:00 15:00 23:00 07:00 15:00 23:00 Intake Total 1040 ml 780 ml Output Total 1400 ml 1000 ml Balance 1040 ml -1400 ml -220 ml Intake Oral 440 ml 480 ml IV Total 600 ml 300 ml Output Urine Total 1400 ml 1000 ml # Voids 2 # Bowel Movements 1 Result Diagram: 03/03/17 0502 03/03/17 0502 Objective Remarks GENERAL: This is a skinny elderly female, well-nourished, well-developed patient , in no apparent distress. CARDIOVASCULAR: Regular rate and rhythm without murmurs, gallops, or rubs. RESPIRATORY: Clear to auscultation. Breath sounds equal bilaterally. No wheezes , rales, or rhonchi. GASTROINTESTINAL: Abdomen soft, non-tender, nondistended. Suprapubic pain, improved. No guarding. MUSCULOSKELETAL: Extremities without clubbing, cyanosis, or edema. No joint tenderness, effusion, or edema noted. No calf tenderness. Negative Homans sign bilaterally. NEUROLOGICAL: Awake and alert. Cranial nerves II through XII intact. Motor and sensory grossly within normal limits. Five out of 5 muscle strength in all muscle groups. Normal speech. A/P Assessment and Plan 82 yo F with : Recurrent UTIs. Without urosepsis Urinary retention WALESKA poss on CKD, however unknown kidney baseline. On IVF. Monitor Received Zosyn in the ED. Will give rocephin IV. Urine cultures with Pseudomonas aeruginosa resistent to cipro and levaquin , will consult ID for blood cultures negative. Patient with urinary retention, jorge placed, continue jorge at DC per urology. Consult urology seen by Dr Frost, appreciate recommendations. Continue jorge at DC to follow up as OP with urology. Continue IVF decrease rate. Monitor Urine OP. Chest pain overnight 03/03. Resolved. Elevated troponin, 0.06--> 0.14 started on heparin drip, 2D ECHO pending, no ischemic changes on EKG, cardiology consulted, recommends medical management. to follow up s OP with PCP Dementia start donepezil. Do cognitive eval. Chronic medical problems HTN, HLD, Afib, GERD appears stable at this time. Resume home meds. Discussed with the daughter, patient takes coreg once a day and also takes Physical deconditioning. Consult PT. Discussed Condition With patient, nurse, case management Patient is not accepted to SNF as she was recently DC form SNF and used all her days. Daughter doesn't want patient to go to [facility] she prefers home with home health. Patient needs hospital bed, bedside commode, walker. all ordered. Patient with dementia started donepezil. Cleared by cardiology. Case management consulted for DC plan. Ni Lopez MD Mar 04, 2017 12:25
--- NOTE | 2017-03-04 12:26 | ECHRPT ---
Indication: CORONARY ATHEROSCLEROSIS CONCLUSIONS Poor echocardiographic windows Mild LV systolic dysfunction with estimated 45% ejection fraction by visual estimation Mild thickening of the mitral valve leaflets. Mild mitral valve regurgitation. Aortic valve sclerosis is present. Mild aortic valve regurgitation. BP: 105 / 72 HR: 69 Rhythm: MEASUREMENTS (Male / Female) Normal Values Technical Quality: 2D ECHO LVOT Diameter 1.6 cm Aortic Root Diameter 2.5 cm M-MODE AV Cusp Separation MM 1.4 cm DOPPLER AV Peak Velocity 119.0 cm/s AV Peak Gradient 5.7 mmHg AV Mean Gradient 3.0 mmHg AV Velocity Time Integral 22.2 cm AI Peak Velocity 313.0 cm/s AI Peak Gradient 39.2 mmHg AI Pressure Half Time 488.0 ms LVOT Peak Velocity 68.4 cm/s LVOT Peak Gradient 1.9 mmHg LVOT Velocity Time Integral 13.6 cm AV Area Cont Eq vti 1.2 cm AV Area Cont Eq pk 1.2 cm Mitral E Point Velocity 60.7 cm/s Mitral A Point Velocity 104.0 cm/s Mitral E to A Ratio 0.6 FINDINGS MITRAL VALVE Mild thickening of the mitral valve leaflets. Mild mitral valve regurgitation. AORTIC VALVE Aortic valve sclerosis is present. Mild aortic valve regurgitation. Jeb Trejo MD (Electronically Signed) Final Date:04 March 2017 12:24
[2017-03-04] MEDS ORDERED: LORazepam 2 MG/ML VIAL IV PUSH ONE (13:00)
[2017-03-04 13:21] VITALS: BP 99/62; PULSE 93; RESP 19; TEMP 95.2; O2SAT 98
[2017-03-04] MEDS: PIPERACIL-TAZO 4.5 GM PREMIX 100 ML IV SCH ×2 (15:00→21:05)
[2017-03-04 17:33] VITALS: BP 107/73; PULSE 87; RESP 19; TEMP 95.6; O2SAT 98
[2017-03-04 20:00] VITALS: BP 141/66; PULSE 66; RESP 16; TEMP 98.1; O2SAT 96
[2017-03-04] MEDS: DIGOXIN 0.125 MG TAB PO SCH (21:00)
[2017-03-05] VITALS: BP 134/80; PULSE 60; RESP 16; TEMP 97.1; O2SAT 96
[2017-03-05 01:21] LABS: BLOOD, URINE NEG (NEG); GLUCOSE,URINE NEG (NEG); KETONE, URINE NEG (NEG); NITRITE,URINE NEG (NEG); PH, URINE 6.5 (5.0-8.5)
[2017-03-05 01:56] LABS: URINE COLOR YELLOW (YELLW/STRAW)
[2017-03-05 01:57] LABS: HYALINE CAST, URINE 0-2 /lpf (RARE); MUCUS URINE OCC /lpf (OCC); RBC, URINE 0-3 /hpf (0-3); SQUAMOUS EPITHELIAL CELL URINE 0-5 /hpf (0-5)
[2017-03-05 01:58] LABS: COMMENT (UR) CULTURE INDICATED; CULTURE IF INDICATED CULTURE INDICATED
[2017-03-05] MEDS: PIPERACIL-TAZO 4.5 GM PREMIX 100 ML IV SCH ×4 (03:47→20:14)
[2017-03-05] MEDS: PANTOPRAZOLE SOD 40 MG DELAYED RELEASE TAB PO SCH ×2 (07:48→20:19)
[2017-03-05] MEDS: BUMETANIDE 1 MG TAB PO SCH ×2 (07:48→20:20)
[2017-03-05] MEDS: CARVEDILOL 3.125 MG TAB PO SCH (07:48)
[2017-03-05] MEDS: POTASSIUM CHLORIDE 10 MEQ CONTROLLED RELEASE TAB PO SCH (07:48)
[2017-03-05] MEDS: DOCUSATE SODIUM 50 MG/SENNA 8.6 MG TAB PO SCH ×2 (07:49→20:19)
[2017-03-05] MEDS: ALPRAZolam 0.25 MG TAB PO SCH ×2 (07:49→20:19)
--- NOTE | 2017-03-05 07:49 | HHI.PR ---
Subjective Remarks In bed, feels much better today. She is pleasant less agitated and less confused. Denies having any chest pain or sob. She is having appetite and she is eating better. No suprapubic pain. No n/v/d/c. Objective Vitals Vital Signs Date Time Temp Pulse Resp B/P Pulse Ox O2 Delivery O2 Flow Rate FiO2 03/05/17 00:00 97.1 60 16 134/80 96 03/04/17 20:00 98.1 66 16 141/66 96 03/04/17 17:33 95.6 87 19 107/73 98 03/04/17 13:21 95.2 93 19 99/62 98 03/04/17 08:56 96.5 82 19 123/75 98 I/O 03/04/17 03/04/17 03/04/17 03/05/17 03/05/17 03/05/17 07:00 15:00 23:00 07:00 15:00 23:00 Intake Total 780 ml 1040 ml Output Total 1000 ml 450 ml 500 ml Balance -220 ml 590 ml -500 ml Intake Oral 480 ml 240 ml IV Total 300 ml 800 ml Output Urine Total 1000 ml 450 ml 500 ml # Voids 2 # Bowel Movements 1 0 0 Result Diagram: 03/03/17 0502 03/03/17 0502 Objective Remarks GENERAL: This is a skinny elderly female, well-nourished, well-developed patient , in no apparent distress. CARDIOVASCULAR: Regular rate and rhythm without murmurs, gallops, or rubs. RESPIRATORY: Clear to auscultation. Breath sounds equal bilaterally. No wheezes , rales, or rhonchi. GASTROINTESTINAL: Abdomen soft, non-tender, nondistended. Suprapubic pain, improved. No guarding. MUSCULOSKELETAL: Extremities without clubbing, cyanosis, or edema. No joint tenderness, effusion, or edema noted. No calf tenderness. Negative Homans sign bilaterally. NEUROLOGICAL: Awake and alert. Cranial nerves II through XII intact. Motor and sensory grossly within normal limits. Five out of 5 muscle strength in all muscle groups. Normal speech. A/P Assessment and Plan 82 yo F with : Recurrent UTIs. Without urosepsis Urinary retention WALESKA poss on CKD, however unknown kidney baseline. On IVF. Monitor. Dementia: Start donepezil 5 mg po QHS. Received Zosyn in the ED. Received zosyn in the ED, started rocephine as patient with elevated Creatinine at 1.4 on admission. Urine cultures obtained 03/01/17 in [place] ED with Pseudomonas aeruginosa resistant to cipro and levaquin, DC rocephine and start zosyn IV, kidney function is back to normal after IVF. Consult ID for antibiotics at discharge. Spoke with Dr Cochran ID specialist. She will come later today see the patient and will give abx at [place]. patient needs IV antibiotics at [place]. Blood cultures are negative. Patient with urinary retention, Jorge placed, continue Jorge at [place] per urology. Consult urology seen by Dr Frost, appreciate recommendations. Continue jorge at [place] to follow up as OP with urology. Continue IVF decrease rate. Monitor Urine OP. Chest pain overnight 03/03. Resolved. Elevated troponin, 0.06--> 0.14 started on heparin drip, 2D ECHO pending, no ischemic changes on EKG, cardiology consulted, recommends medical management. to follow up s OP with PCP Dementia start donepezil. Do cognitive eval. Chronic medical problems HTN, HLD, Afib, GERD appears stable at this time. Resume home meds. Discussed with the daughter, patient takes coreg once a day and also takes Physical deconditioning. Consult PT. Discussed Condition With patient, nurse, case management Patient is not accepted to SNF as she was recently DC form SNF and used all her days. Daughter doesn't want patient to go to [facility] she prefers home with home health. Patient needs hospital bed, bedside commode, walker. all ordered/ scripts in the chart spoke with CM Patient with dementia started donepezil. Cleared by cardiology. Case management consulted for DC plan. Ni Lopez MD Mar 05, 2017 07:49
[2017-03-05] MEDS: SODIUM CHLORIDE 0.9% FLUSH 10 ML FLUSH IV FLUSH SCH ×2 (07:50→20:14)
[2017-03-05] MEDS: 1/2 NS + KCL 20 MEQ INJ 1,000 ML IV SCH ×2 (07:50→15:13)
[2017-03-05 08:48] VITALS: BP 144/68; PULSE 85; RESP 14; TEMP 96.6; O2SAT 99
[2017-03-05] MEDS ORDERED: DIGO0.12 PO (10:30)
[2017-03-05 11:58] LABS: POTASSIUM 3.8 MEQ/L (3.5-5.1)
[2017-03-05 12:01] LABS: BICARBONATE 28.7 MEQ/L (21.0-32.0)
[2017-03-05 13:46] VITALS: BP 101/69; PULSE 80; RESP 15; TEMP 96.6; O2SAT 100
[2017-03-05 18:39] VITALS: BP 128/75; PULSE 81; RESP 16; TEMP 97.4; O2SAT 97
--- NOTE | 2017-03-05 18:58 | PD.ID.CON ---
History of Present Illness Service ID Consult Requested By Dr Lopez Reason for Consult UTI, PSAE Primary Care Physician Non-Staff Diagnoses: History of Present Illness 82 yo female with dementia and multiple med problems admitted with urinary complaints ( urinary frequency, pain with urination, suprapubic pain). She was recently in the hospital with UTI and she was discharged from SNF recently. Pt has no fever, s No diarrhea or constipation. The patient is a poor historian, history is obtained from the records. He UA was quite abnormal with innumerable WBC and clx grew PSAE resistant to cipro, S to zsosyn Repeat UA showed remarkable improvement Review of Systems ROS Limitations: Poor Historian Past Family Social History Allergies: Uncoded Allergies: antipsycotics (Allergy, Intermediate, Confusion, 03/01/17) Past Medical History AFib, HNT, GERD, HLD, frequent UTIs Past Surgical History CS Active Ordered Medications Medications where reviewed in EMR Antibiotics Include: zosyn Family History Non contributory to current problem Social History Used to smoke, quit 40 years ago. No EtOH use or illicit drug use. Originally from [place] Physical Exam Vital Signs Vital Signs Date Time Temp Pulse Resp B/P Pulse Ox O2 Delivery O2 Flow Rate FiO2 03/05/17 18:39 97.4 81 16 128/75 97 03/05/17 13:46 96.6 80 15 101/69 100 03/05/17 08:48 96.6 85 14 144/68 99 03/05/17 00:00 97.1 60 16 134/80 96 03/04/17 20:00 98.1 66 16 141/66 96 Physical Exam CONSTITUTIONAL/GENERAL: This is a thin elderly frail female patient, in no apparent distress. TUBES/LINES/DRAINS: R femoral line in place - site OK SKIN: No jaundice, rashes, or lesions. Skin temperature appropriate. Not diaphoretic. HEAD: Atraumatic. Normocephalic. EYES: Pupils equal and round and reactive. Extraocular motions intact. No scleral icterus. No injection or drainage. Fundi not examined. ENT: Hearing grossly normal. Nose without bleeding or purulent drainage. Throat without visible erythema, exudates, masses, or lesions. NECK: Trachea midline. Supple, nontender. CARDIOVASCULAR: irregular rate and rhythm without murmurs, gallops, or rubs. No JVD. Peripheral pulses symmetric. RESPIRATORY/CHEST: Symmetric, unlabored respirations. Clear to auscultation. Breath sounds equal bilaterally. No wheezes, rales, or rhonchi. GASTROINTESTINAL: Abdomen soft, non-tender, nondistended. No hepato-splenomegaly , or palpable masses. No guarding. Bowel sounds present. GENITOURINARY: Without palpable bladder distension. Abrams catheter in place. MUSCULOSKELETAL: Extremities without clubbing, cyanosis, or edema. No joint tenderness or effusion noted. No calf tenderness. No mottling or clubbing. LYMPHATICS: No palpable cervical or supraclavicular adenopathy. NEUROLOGICAL: Awake and alert. Confused. Motor and sensory grossly within normal limits. Follows commands. Speech is clear but incoherent whther she speaks Arabic or Nepali as per nursing report. Moves all extremities. PSYCHIATRIC:calm cooperative, but intermittently hostile towards nursing staff Laboratory Laboratory Tests Test 03/05/17 03/05/17 01:05 11:30 Urine Color YELLOW Urine Turbidity SLIGHT Urine pH 6.5 Urine Specific [place] 1.015 Urine Protein NEG Urine Glucose (UA) NEG Urine Ketones NEG Urine Occult Blood NEG Urine Nitrite NEG Urine Bilirubin NEG Urine Leukocyte Esterase NEG Urine RBC 0-3 Urine WBC 3-5 Urine WBC Clumps OCC Urine Squamous Epithelial 0-5 Cells Urine Hyaline Casts 0-2 Urine Mucus OCC Microscopic Urinalysis Comment CULTURE INDICATED Sodium Level 140 Potassium Level 3.8 Chloride Level 104 Carbon Dioxide Level 28.7 Anion Gap 7 Blood Urea Nitrogen 9 Creatinine 0.73 Estimat Glomerular Filtration 76 Rate Random Glucose 131 Calcium Level 8.4 Date/Time Procedure Status Source Growth 03/05/17 01:05 Urine Culture Received Urine Clean Catch Pending Result Diagram: 03/03/17 0502 03/05/17 1130 Assessment and Plan Assessment and Plan UTI, Pseudomonal, R to oral abx - improved with zosyn REC's: we can use cefepime or Fortaz switch to fortaz PICC 10 more days to complete 14 days of tx Discussed Condition With Tracie Ivey Dr, MD Mar 05, 2017 18:58
[2017-03-05 20:00] VITALS: BP 109/69; PULSE 76; RESP 16; TEMP 97.7; O2SAT 93
[2017-03-05] MEDS: DIGOXIN 0.125 MG TAB PO SCH (20:19)
[2017-03-05] MEDS: TEMAZEPAM 15 MG CAP PO PRN (20:19)
--- NOTE | 2017-03-05 22:56 | HHI.FF ---
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 [] May leave port accessed during therapy. [] May leave peripheral site accessed for duration of therapy. [x] If patient has SOB or respiratory distress, check oxygen saturation. If less than 90% or clinical signs of respiratory distress, administer oxygen at 2 L/min. via nasal cannula and notify physician. [x] Anaphylaxis/Reaction orders: * Stop infusion. * Keep IV line open with saline flush. * Notify physician. * Monitor vital signs every 15 minutes until symptoms resolve. * Check Oxygen saturation; Oxygen at 2 L/min. via nasal cannula if less than 90% or clinical signs of respiratory distress. * Administer diphenhydramine (Benadryl) 25 mg IV STAT, (unless patient has received as pre-med). May repeat once, if necessary. * Solu-Cortef 250 mg IVP over 30-60 seconds, use 100 mg vials for each dissolution. * Epinephrine (1mg/1 ml) 0.3 mg subcutaneously or IVP now with any signs of respiratory distress. * Check with physician for new additional pre-med orders if patient is re- challenged or re-treated. [x] May remove PICC line when treatment complete, after confirming with Physician. [x] If the patient is admitted to the hospital, the ED, or transferred via [facility] , complete transfer form including medication reconciliation order sheet. Laboratory Tests Weekly Labs: CBC w/diff, Creatinine Tracie Domínguez MD Mar 05, 2017 22:56
[2017-03-05] MEDS ORDERED: cefTAZidime INJ 2,000 MG in SODIUM CHLORIDE 0.9% INJ 100 ML IV SCH (23:00)
[2017-03-06] MEDS: LORazepam 0.5 MG TAB PO PRN ×2 (01:21→16:32)
[2017-03-06] MEDS: ACETAMINOPHEN 325 MG TAB PO PRN (01:21)
[2017-03-06 06:31] LABS: HEMATOCRIT 29.8 % (35.0-46.0); MEAN CELL VOLUME 93.6 FL (80.0-100.0); MEAN CORPUSCULAR HEMOGLOBIN 30.4 PG (27.0-34.0); MEAN CORPUSCULAR HGB CONC 32.5 % (32.0-36.0); PLATELET COUNT 269 TH/MM3 (150-450); RED BLOOD COUNT 3.18 MIL/MM3 (4.00-5.30); RED CELL DISTRIBUTION WIDTH 14.3 % (11.6-17.2); REVIEW FLAG FINAL
[2017-03-06 08:00] VITALS: BP 132/72; PULSE 86; RESP 16; TEMP 97.1; O2SAT 96
[2017-03-06] MEDS: SODIUM CHLORIDE 0.9% FLUSH 10 ML FLUSH IV FLUSH SCH ×2 (09:00→20:14)
[2017-03-06] MEDS: DOCUSATE SODIUM 50 MG/SENNA 8.6 MG TAB PO SCH ×2 (09:56→20:11)
[2017-03-06] MEDS: PANTOPRAZOLE SOD 40 MG DELAYED RELEASE TAB PO SCH ×2 (09:56→20:10)
[2017-03-06] MEDS: CARVEDILOL 3.125 MG TAB PO SCH (09:56)
[2017-03-06] MEDS: POTASSIUM CHLORIDE 10 MEQ CONTROLLED RELEASE TAB PO SCH (09:57)
[2017-03-06] MEDS: BUMETANIDE 1 MG TAB PO SCH ×2 (09:57→20:16)
[2017-03-06] MEDS: ALPRAZolam 0.25 MG TAB PO SCH ×2 (10:07→20:11)
[2017-03-06] MEDS: 1/2 NS + KCL 20 MEQ INJ 1,000 ML IV SCH (10:08)
[2017-03-06] MEDS ORDERED: WHEEMIS3 (11:35)
--- NOTE | 2017-03-06 11:56 | HHI.PR ---
Subjective Remarks Patient in bed. She is noted agitated on and off. Patient is pleasantly confused. She denies having any pain. Says she is eating better.No fever or chills. No n/v/d/c. Daughter refusing midline .picc line placement. Will ask psychiatry on consult. Objective Vitals Vital Signs Date Time Temp Pulse Resp B/P Pulse Ox O2 Delivery O2 Flow Rate FiO2 03/05/17 20:00 97.7 76 16 109/69 93 03/05/17 18:39 97.4 81 16 128/75 97 03/05/17 13:46 96.6 80 15 101/69 100 I/O 03/05/17 03/05/17 03/05/17 03/06/17 03/06/17 03/06/17 07:00 15:00 23:00 07:00 15:00 23:00 Intake Total 850 ml 620 ml 217 ml Output Total 500 ml 1150 ml 1550 ml Balance -500 ml -300 ml 620 ml -1333 ml Intake Oral 80 ml IV Total 850 ml 620 ml 137 ml Output Urine Total 500 ml 1150 ml 1550 ml # Bowel Movements 0 Result Diagram: 03/06/17 0610 03/05/17 1130 Objective Remarks GENERAL: This is a skinny elderly female, well-nourished, well-developed patient , in no apparent distress. CARDIOVASCULAR: Regular rate and rhythm without murmurs, gallops, or rubs. RESPIRATORY: Clear to auscultation. Breath sounds equal bilaterally. No wheezes , rales, or rhonchi. GASTROINTESTINAL: Abdomen soft, non-tender, nondistended. Suprapubic pain, improved. No guarding. MUSCULOSKELETAL: Extremities without clubbing, cyanosis, or edema. No joint tenderness, effusion, or edema noted. No calf tenderness. Negative Homans sign bilaterally. NEUROLOGICAL: Awake and alert. Cranial nerves II through XII intact. Motor and sensory grossly within normal limits. Five out of 5 muscle strength in all muscle groups. Normal speech. A/P Assessment and Plan 82 yo F with : Recurrent UTIs. Without urosepsis Urinary retention WALESKA poss on CKD, however unknown kidney baseline. On IVF. Monitor. Dementia: Start donepezil 5 mg po QHS. Received Zosyn in the ED. Received zosyn in the ED, started rocephine as patient with elevated Creatinine at 1.4 on admission. Urine cultures obtained 03/01/17 in [place] ED with Pseudomonas aeruginosa resistant to cipro and levaquin, DC rocephine and start zosyn IV, kidney function is back to normal after IVF. Consult ID for antibiotics at discharge. Spoke with Dr Cochran ID specialist. . patient needs IV antibiotics at [place]. Antibiotics infusion done by dr Cochran for DC. Blood cultures are negative. Patient with urinary retention, Jorge placed, continue Jorge at [place] per urology. Consult urology seen by Dr Frost, appreciate recommendations. Continue jorge at [place] to follow up as OP with urology. Continue IVF decrease rate. Monitor Urine OP. Chest pain overnight 03/03. Resolved. Elevated troponin, 0.06--> 0.14 started on heparin drip, 2D ECHO pending, no ischemic changes on EKG, cardiology consulted, recommends medical management. to follow up s OP with PCP Dementia start donepezil. Do cognitive eval. Will consult osychiatry Chronic medical problems HTN, HLD, Afib, GERD appears stable at this time. Resume home meds. Discussed with the daughter, patient takes coreg once a day and also takes Physical deconditioning. Consult PT. Discussed Condition With patient, nurse, case management Patient is not accepted to SNF as she was recently DC form SNF and used all her days. Daughter doesn't want patient to go to [facility] she prefers home with home health. Patient needs hospital bed, bedside commode, walker. all ordered/ scripts in the chart spoke with CM Patient with dementia started donepezil. Cleared by cardiology. Case management consulted for DC plan. Daughter refusing midline placement. Daughter also with multiple familial problems as she is recently and has kids at home as well and says she is unable to take care of her mother. Will consult psychiatry as patient with dementia and to see if patient will be taken to psych unit Ni Lopez MD Mar 06, 2017 11:56
[2017-03-06 12:30] VITALS: BP 102/65; PULSE 82; RESP 14; TEMP 98; O2SAT 96
[2017-03-06 16:00] VITALS: BP 118/70; PULSE 85; RESP 16; TEMP 98.4; O2SAT 95
[2017-03-06 20:00] VITALS: BP 146/77; PULSE 112; RESP 16; TEMP 97.6; O2SAT 94
[2017-03-06] MEDS: cefTAZidime INJ 2,000 MG in SODIUM CHLORIDE 0.9% INJ 100 ML IV SCH (20:08)
[2017-03-06] MEDS: DIGOXIN 0.125 MG TAB PO SCH (20:11)
--- NOTE | 2017-03-06 23:21 | RADRPT ---
EXAM DATE/TIME: 03/06/2017 23:09 [place] COMPARISON: No previous studies available for comparison. INDICATIONS : Left foot pain, swelling starting today with no known injury MEDICAL HISTORY : None. SURGICAL HISTORY : None. ENCOUNTER: Initial ACUITY: 1 day PAIN SCORE: 10/10 LOCATION: Left entire foot FINDINGS: There is decreased bone mineralization. Joint space widths are intact. No acute fracture or dislocati on. Plantar and posterior calcaneal spurs. CONCLUSION: 1. Decreased bone density and calcaneal spurs. Av Meadows MD on March 06, 2017 at 23:19 Board Certified Radiologist. This report was verified electronically.
[2017-03-07] VITALS: BP 123/79; PULSE 106; RESP 18; TEMP 98; O2SAT 100
[2017-03-07] MEDS: 1/2 NS + KCL 20 MEQ INJ 1,000 ML IV SCH ×3 (02:27→22:15)
[2017-03-07 08:00] VITALS: BP 114/74; PULSE 86; RESP 18; TEMP 97.2; O2SAT 97
--- NOTE | 2017-03-07 08:24 | HHI.PR ---
Subjective Remarks The patient is scheduled in the midline placed. She is midline for IV antibiotics. She is agitated on and off for nursing. She is very pleasant at this time and very cooperative. She says she has no chest pain or shortness of breath. No suprapubic pain, fever or chills. No nausea. She is able to eat by herself without help. Objective Vitals Vital Signs Date Time Temp Pulse Resp B/P Pulse Ox O2 Delivery O2 Flow Rate FiO2 03/07/17 00:00 98.0 106 18 123/79 100 03/06/17 20:00 97.6 112 16 146/77 94 03/06/17 16:00 98.4 85 16 118/70 95 03/06/17 12:30 98.0 82 14 102/65 96 I/O 03/06/17 03/06/17 03/06/17 03/07/17 03/07/17 03/07/17 07:00 15:00 23:00 07:00 15:00 23:00 Intake Total 217 ml 800 ml 769 ml Output Total 1550 ml 1000 ml 1700 ml Balance -1333 ml -200 ml -931 ml Intake Oral 80 ml 800 ml 240 ml IV Total 137 ml 529 ml Output Urine Total 1550 ml 1000 ml 1700 ml # Bowel Movements 0 Result Diagram: 03/06/17 0610 03/05/17 1130 Imaging Last Impressions Foot X-Ray 03/06/17 0000 Signed Impressions: Service Date/Time: February 23:09 - CONCLUSION: 1. Decreased bone density and calcaneal spurs. Av Meadows MD Objective Remarks GENERAL: This is a skinny elderly female, well-nourished, well-developed patient , in no apparent distress. CARDIOVASCULAR: Regular rate and rhythm without murmurs, gallops, or rubs. RESPIRATORY: Clear to auscultation. Breath sounds equal bilaterally. No wheezes , rales, or rhonchi. GASTROINTESTINAL: Abdomen soft, non-tender, nondistended. Suprapubic pain, improved. No guarding. MUSCULOSKELETAL: Extremities without clubbing, cyanosis, or edema. No joint tenderness, effusion, or edema noted. No calf tenderness. Negative Homans sign bilaterally. NEUROLOGICAL: Awake and alert. Cranial nerves II through XII intact. Motor and sensory grossly within normal limits. Five out of 5 muscle strength in all muscle groups. Normal speech. A/P Assessment and Plan 82 yo F with : Recurrent UTIs. Without urosepsis Urinary retention WALESKA poss on CKD, however unknown kidney baseline. On IVF. Monitor. Dementia: Start donepezil 5 mg po QHS. Received Zosyn in the ED. Received zosyn in the ED, started rocephine as patient with elevated Creatinine at 1.4 on admission. Urine cultures obtained 03/01/17 in [place] ED with Pseudomonas aeruginosa resistant to cipro and levaquin, DC rocephine and started zosyn IV, kidney function is back to normal after IVF. Consult ID for antibiotics at discharge. Spoke with Dr Cochran ID specialist. . patient needs IV antibiotics at [place]. Antibiotics infusion done by dr Cochran for DC. Blood cultures are negative. Patient with urinary retention, Jorge placed, continue Jorge at [place] per urology. Consult urology seen by Dr Frost, appreciate recommendations. Continue jorge at [place] to follow up as OP with urology. Continue IVF decrease rate. Monitor Urine OP. Chest pain overnight 03/03. Resolved. Elevated troponin, 0.06--> 0.14 started on heparin drip , DCd per cardio, 2D ECHO with mild reduced EF of 45 %, no ischemic changes on EKG, cardiology consulted, recommends medical management. to follow up s OP with PCP Dementia start donepezil. Do cognitive eval. Will consult psychiatry. Chronic medical problems HTN, HLD, Afib, GERD appears stable at this time. Resume home meds. Discussed with the daughter, patient takes coreg once a day and also takes. Daughter also not available to be ritched regarding midline placed. patient will have midline placed for prolonged IV antibiotic administration as a medical necessity. Physical deconditioning. Consult PT. Discussed Condition With patient, nurse, case management Patient is not accepted to SNF as she was recently DC form SNF and used all her days. Daughter doesn't want patient to go to [facility] she prefers home with home health. Patient needs hospital bed, bedside commode, walker. all ordered/ scripts in the chart spoke with CM Patient with dementia started donepezil. Cleared by cardiology. Case management consulted for DC plan. Daughter refusing midline placement. Daughter also with multiple familial problems as she is recently and has kids at home as well and says she is unable to take care of her mother. Will consult psychiatry as patient with dementia and to see if patient will be taken to psych unit Ni Lopez MD Mar 07, 2017 08:24
[2017-03-07] MEDS ORDERED: HALOPERIDOL LACTATE 5 MG/ML AMP IM PRN (09:00)
[2017-03-07] MEDS: DOCUSATE SODIUM 50 MG/SENNA 8.6 MG TAB PO SCH ×4 (09:00→21:00)
[2017-03-07] MEDS: PANTOPRAZOLE SOD 40 MG DELAYED RELEASE TAB PO SCH ×4 (09:00→21:00)
[2017-03-07] MEDS: CARVEDILOL 3.125 MG TAB PO SCH ×3 (09:00→10:03)
[2017-03-07] MEDS: SODIUM CHLORIDE 0.9% FLUSH 10 ML FLUSH IV FLUSH SCH ×2 (09:00→21:46)
[2017-03-07] MEDS: BUMETANIDE 1 MG TAB PO SCH ×2 (09:00→21:00)
[2017-03-07] MEDS: POTASSIUM CHLORIDE 10 MEQ CONTROLLED RELEASE TAB PO SCH ×3 (09:00→10:03)
[2017-03-07] MEDS: clonazePAM 0.5 MG TAB PO SCH ×2 (09:00→21:00)
--- NOTE | 2017-03-07 09:08 | PD.PSY.CON ---
Provisional Diagnosis Admission Date Feb 28, 2017 at 21:35 Marion I. Dementia with behavioral disturbances, delirium due to an underlying another medical condition History of Present Illness Service Psychiatry Consult Requested By Primary Care Physician Non-Staff HPI The patient is a 82-year-old English woman, without no documented psychiatric history, with PMH of recurrent UTIs, HTN, HLD, Afib who came to the [facility] department for further evaluation. Patient complaints of urinary frequency, pain with urination, suprapubic pain. She was recently in the hospital with the same problems and she was discharged from SNF recently. The patient feels weak and not able to walk much. Admitted due to Recurrent UTIs, Without urosepsis, Urinary retention, WALESKA poss on CKD, consulted to psychiatry due to agitation and aggressive behavior. Patient seen today for psychiatric evaluation, interview in primary language is Portuguese. Patient restrained in 2 points. Confused, disoriented in time and place. She is able to say her name, patient reported that she feels fine, denies pain, denies depressive symptoms, denies suicidal ideation, denies homicidal ideation. Patient is calm, in a good spirit. Patient says that she is happy to be "here at home" "with all my friends". Patient says that "my daughter is in the next-door, if you want to speak with her". Patient things that we are in August 1979. 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 She cannot doesn't provide any meaningful information for the psychiatric assessment at this moment. However, no paranoia , no agitation or aggressive behavior are observed at this moment. I tried to contact with her daughter Cata Yin, , but she didn't answer the phone. Review of Systems ROS Limitations: Altered Mental Status, Uncooperative Past Family Social History Uncoded Allergies: antipsycotics (Allergy, Intermediate, Confusion, 03/01/17) Active Scripts Wheelchair 1 Mis Mis #1 EA .ROUTE DIRECTED Ref 0 Prov:Ni Lopez MD 03/06/17 Digoxin 0.125 Mg Tab0.125 Mg PO HS #30 TAB Ref 0 Prov:Ni Lopez MD 03/05/17 Aspirin 81 Mg Chew81 Mg CHEW DAILY #30 TAB Ref 0 Prov:Ni Lopez MD 03/04/17 Commode 3-in-1 1 Mis Mis #1 EA .ROUTE DIRECTED Ref 0 Prov:Ni Lopez MD 03/04/17 Walker with Front Wheels 1 Mis Mis #1 EA .ROUTE DIRECTED Ref 0 Prov:Ni Lopez MD 03/04/17 Donepezil 5 Mg Tab5 Mg PO HS #30 TAB Ref 0 Prov:Ni Lopez MD 03/04/17 Sennosides-Docusate Sodium (Senna Plus 8.6-50 mg)1 Tab Tab1 Tab PO BID #60 TAB Prov:Ni Lopez MD 03/03/17 Bumetanide 2 Mg Tab1 Mg PO BID #60 TAB Ref 0 Prov:Ni Lopez MD 03/03/17 Alprazolam (Xanax)0.25 Mg Tab0.25 Mg PO BID #10 TAB Ref 0 Prov:Ni Lopez MD 03/03/17 Reported Medications Pantoprazole (Protonix)40 Mg Tab40 Mg PO BID #30 TAB Ref 0 02/28/17 Carvedilol (Coreg)3.125 Mg Tab3.125 Mg PO BID #60 TAB Ref 0 02/28/17 Potassium Chloride ER 10 Meq Cap10 Meq PO DAILY #30 CAP Ref 0 02/28/17 Discontinued Reported Medications Digoxin 0.125 Mg Tab0.125 Mg PO HS #30 TAB Ref 0 03/01/17 Bumetanide 2 Mg Tab2 Mg PO BID Ref 0 02/28/17 Alprazolam (Xanax)0.25 Mg Tab0.25 Mg PO BID Ref 0 02/28/17 Current Medications Medications (Trade) Dose Ordered Sig/Arlet Route Start Time Stop Time Status Last Admin (NS Flush) 2 ml UNSCH PRN IV FLUSH 02/28/17 20:45 (NS Flush) 2 ml BID IV FLUSH 02/28/17 21:00 03/06/17 20:14 (Tylenol) 650 mg Q4H PRN PO 02/28/17 20:45 03/06/17 01:21 (Zofran Inj) 4 mg Q6H PRN IVP 02/28/17 20:45 03/03/17 19:10 (Steph-Colace) 1 tab BID PO 02/28/17 21:00 03/06/17 20:11 (Milk Of Magnesia Liq) 30 ml Q12H PRN PO 02/28/17 20:45 (Senokot) 17.2 mg Q12H PRN PO 02/28/17 20:45 (Dulcolax Supp) 10 mg DAILY PRN RECTAL 02/28/17 20:45 (Lactulose Liq) 30 ml DAILY PRN PO 02/28/17 20:45 (Restoril) 15 mg HS PRN PO 02/28/17 22:15 03/05/17 20:19 (Xanax) 0.25 mg BID PO 03/01/17 13:00 03/06/17 20:11 (Protonix) 40 mg BID PO 03/01/17 13:00 03/06/17 20:10 (Coreg) 3.125 mg DAILY PO 03/02/17 09:00 03/06/17 09:56 (Bumetanide) 1 mg BID PO 03/01/17 21:00 03/06/17 20:16 Digoxin 0.125 mg 0.125 mg HS PO 03/01/17 21:00 03/06/17 20:11 Heparin Sodium/ Dextrose 250 ml @ 0 mls/hr TITRATE IV 03/03/17 06:15 03/03/17 13:55 (1/2 NS + KCl 20 Meq Inj) 1,000 ml @ 84 mls/hr [id number] IV 03/03/17 11:00 03/07/17 02:27 (Ativan) 0.5 mg Q6H PRN PO 03/04/17 13:00 03/06/17 16:32 Potassium Chloride 10 meq 10 meq DAILY PO 03/05/17 09:00 03/06/17 09:57 (Fortaz Inj/NS Inj) 100 ml @ 200 mls/hr Q12H IV 03/06/17 21:00 03/06/17 20:08 Physical Exam Vital Signs Vital Signs Date Time Temp Pulse Resp B/P Pulse Ox O2 Delivery O2 Flow Rate FiO2 03/07/17 08:00 97.2 86 18 114/74 97 I/O 03/06/17 03/06/17 03/07/17 08:00 16:00 00:00 Intake Total 80 ml 800 ml Output Total 1550 ml 1000 ml Balance -1470 ml -200 ml Mental Status Examination Mental status is limited due to level of disorientation and lack of cooperation Appearance woman, age appearing, [facility] good hygiene, poor cooperative, calm Speech: Hesitant, Slow Orientation: Person Memory: Impaired (describe) Thought Process: Loose Association Thought Content: Bizarre thinking Hallucination Type: None Suicidal Ideation: No Previous Suicide Attempts: No Homicidal Ideation: No Previous Homicide Attempts: No Insight: Poor Judgment: Poor Affect: Irritable Mood: Irritable Motor Activity: Abnormal gait-specify Assessment & Plan Problem List: (1) Delirium due to another medical condition Assessment & Plan: Psychiatric assessment limited due to level of disorganization/disorientation. Baseline of the patient unknown. Unknown previous psychiatric history, no documentation of psychiatric illnesses. Patient has been reportedly agitated and restless in the hospital. On somatic evaluation she is disoriented, poorly cooperative, restraint into points,. More collateral information is still needed . Will substitute Xanax 0.25 mg 3 times a day with clonazepam 0.5 mg twice a day for control anxiety. Will taper down temazepam to help with sleep to 10 mg, 5 mg in 2 days and then discontinue. Benzodiazepines could be deliriogenic and can induced paradoxical agitation in elderly, try to avoid as much as possible. We will add Haldol 2 mg IM every 8 hours when necessary aggressive behavior and agitation. Risperdal 0.25 mg twice a day for behavioral control and psychosis. Patient does not meet criteria for psychiatric admission at this moment. We'll continue follow-up ICD Code: F05 Assessment & Plan Estimated LOS: Jamir Atkinson MD Mar 07, 2017 09:07
[2017-03-07] MEDS: cefTAZidime INJ 2,000 MG in SODIUM CHLORIDE 0.9% INJ 100 ML IV SCH ×2 (09:57→21:46)
[2017-03-07] MEDS: risperiDONE 0.25 MG TAB PO SCH ×2 (10:00→21:00)
[2017-03-07 12:00] VITALS: BP 127/78; PULSE 89; RESP 18; TEMP 97; O2SAT 96
[2017-03-07 16:00] VITALS: BP 113/73; PULSE 95; RESP 16; TEMP 97.5; O2SAT 96
[2017-03-07] MEDS ORDERED: TEMAZEPAM 7.5 MG CAP PO PRN (20:00)
[2017-03-07 20:15] VITALS: BP 122/73; PULSE 109; RESP 12; TEMP 97.9; O2SAT 97
[2017-03-07] MEDS: DIGOXIN 0.125 MG TAB PO SCH (21:00)
[2017-03-08 00:11] VITALS: BP 111/89; PULSE 111; RESP 14; TEMP 98.9; O2SAT 98
[2017-03-08 08:00] VITALS: BP 131/75; PULSE 114; RESP 16; TEMP 97.3; O2SAT 98
[2017-03-08] MEDS: BUMETANIDE 1 MG TAB PO SCH ×2 (09:00→21:00)
[2017-03-08] MEDS: CARVEDILOL 3.125 MG TAB PO SCH (09:30)
[2017-03-08] MEDS: POTASSIUM CHLORIDE 10 MEQ CONTROLLED RELEASE TAB PO SCH (09:30)
[2017-03-08] MEDS: clonazePAM 0.5 MG TAB PO SCH ×2 (09:30→21:44)
[2017-03-08] MEDS: cefTAZidime INJ 2,000 MG in SODIUM CHLORIDE 0.9% INJ 100 ML IV SCH ×2 (09:30→21:44)
[2017-03-08] MEDS: DOCUSATE SODIUM 50 MG/SENNA 8.6 MG TAB PO SCH ×2 (09:30→21:44)
[2017-03-08] MEDS: risperiDONE 0.25 MG TAB PO SCH ×2 (09:30→21:44)
[2017-03-08] MEDS: PANTOPRAZOLE SOD 40 MG DELAYED RELEASE TAB PO SCH ×2 (09:30→21:44)
[2017-03-08] MEDS: SODIUM CHLORIDE 0.9% FLUSH 10 ML FLUSH IV FLUSH SCH ×2 (09:31→21:43)
[2017-03-08 12:00] VITALS: BP 104/66; PULSE 103; RESP 16; TEMP 98; O2SAT 100
--- NOTE | 2017-03-08 14:33 | HHI.PR ---
Subjective Remarks Patient seen in follow up for dc planning No new events today d/c RN, GRADUATE NURSE, cm, and ID consult Midline right arm Patient without new complaints today Objective Vitals Vital Signs Date Time Temp Pulse Resp B/P Pulse Ox O2 Delivery O2 Flow Rate FiO2 03/08/17 12:00 98.0 103 16 104/66 100 03/08/17 08:00 97.3 114 16 131/75 98 03/08/17 00:11 98.9 111 14 111/89 98 03/07/17 20:15 97.9 109 12 122/73 97 03/07/17 16:00 97.5 95 16 113/73 96 I/O 03/07/17 03/07/17 03/07/17 03/08/17 03/08/17 03/08/17 07:00 15:00 23:00 07:00 15:00 23:00 Intake Total 769 ml 575 ml 1400 ml Output Total 1700 ml 650 ml 850 ml 352 ml Balance -931 ml -75 ml -850 ml 1048 ml Intake Oral 240 ml 575 ml IV Total 529 ml 1400 ml Output Urine Total 1700 ml 650 ml 850 ml 352 ml # Bowel Movements 0 2 1 Result Diagram: 03/06/17 0610 03/05/17 1130 Imaging Last Impressions Foot X-Ray 03/06/17 0000 Signed Impressions: Service Date/Time: February 23:09 - CONCLUSION: 1. Decreased bone density and calcaneal spurs. Av Meadows MD Objective Remarks GENERAL: This is a well-nourished, well-developed patient, in no apparent distress. CARDIOVASCULAR: Regular rate and rhythm without murmurs, gallops, or rubs. RESPIRATORY: Clear to auscultation. Breath sounds equal bilaterally. No wheezes , rales, or rhonchi. GASTROINTESTINAL: Abdomen soft, non-tender, nondistended. Normal active bowel sounds MUSCULOSKELETAL: Extremities without clubbing, cyanosis, or edema. NEURO: Alert & Oriented to person, Moves all ext x4 no evidence of depression currently Urinary Catheter: Yes Jorge insert reason: Obstruction/Retention A/P Problem List: (1) Dementia ICD Code: F03.90 Status: Acute Plan: meds per psych klonipin/temazepam/haldol, respiradol no sign of depression (2) Urinary tract infection ICD Code: N39.0 Status: Acute Plan: pseudomonas 03/04 cultures Rx. Fortaz IV through 03/17 stable (3) Urinary retention ICD Code: R33.9 Status: Acute Plan: continue jorge per urology (4) WALESKA (acute kidney injury) ICD Code: N17.9 Status: Acute Plan: resolved likely due to retention and UTI (5) Elevated troponin ICD Code: R74.8 Status: Acute Plan: stable dc heparin cards consult appreciated no further work up (6) CHF (congestive heart failure) ICD Code: I50.9 Status: Acute Plan: cont joe, Reena Sher MD Mar 08, 2017 14:33
[2017-03-08 16:00] VITALS: BP 104/70; PULSE 68; RESP 16; TEMP 97.3; O2SAT 100
[2017-03-08 21:29] VITALS: BP 98/65; PULSE 101; RESP 16; TEMP 99.1; O2SAT 100
[2017-03-08] MEDS: DIGOXIN 0.125 MG TAB PO SCH (21:44)
[2017-03-09] VITALS: BP 100/65; PULSE 93; RESP 18; TEMP 98.9; O2SAT 98
[2017-03-09 08:00] VITALS: BP 109/73; PULSE 98; RESP 18; TEMP 97.6; O2SAT 95
[2017-03-09 08:52] LABS: AUTOMATED NEUTROPHIL # 3.6 TH/MM3 (1.8-7.7); BASOPHIL # 0.1 TH/MM3 (0-0.2); EOSINOPHIL # 0.2 TH/MM3 (0-0.4); EOSINOPHIL % 2.5 % (0.0-4.0); HEMATOCRIT 32.7 % (35.0-46.0); HEMO FLAGS DIFF FINAL; LYMPH % 32.6 % (9.0-44.0); LYMPHOCYTE # 2.1 TH/MM3 (1.0-4.8); MEAN CELL VOLUME 93.6 FL (80.0-100.0); MEAN CORPUSCULAR HGB CONC 33.1 % (32.0-36.0); NEUT % 55.9 % (16.0-70.0); PLATELET COUNT 297 TH/MM3 (150-450); RED BLOOD COUNT 3.49 MIL/MM3 (4.00-5.30); RED CELL DISTRIBUTION WIDTH 14.4 % (11.6-17.2); WHITE BLOOD COUNT 6.5 TH/MM3 (4.0-11.0)
[2017-03-09] MEDS: BUMETANIDE 1 MG TAB PO SCH (09:00)
--- NOTE | 2017-03-09 09:19 | HHI.PR ---
Subjective Remarks Patient seen in follow-up for pseudomonal UTI and for dementia. No new complaints. No events. Objective Vitals Vital Signs Date Time Temp Pulse Resp B/P Pulse Ox O2 Delivery O2 Flow Rate FiO2 03/09/17 08:00 97.6 98 18 109/73 95 03/09/17 04:00 03/09/17 00:00 98.9 93 18 100/65 98 03/08/17 21:29 99.1 101 16 98/65 100 03/08/17 16:00 97.3 68 16 104/70 100 03/08/17 12:00 98.0 103 16 104/66 100 I/O 03/08/17 03/08/17 03/08/17 03/09/17 03/09/17 03/09/17 07:00 15:00 23:00 07:00 15:00 23:00 Intake Total 1400 ml 840 ml 480 ml 100 ml Output Total 352 ml 800 ml 250 ml 250 ml Balance 1048 ml 40 ml 230 ml -150 ml Intake Oral 840 ml 480 ml IV Total 1400 ml 100 ml Output Urine Total 352 ml 800 ml 250 ml 250 ml # Bowel Movements 1 3 1 Result Diagram: 03/09/17 0811 03/05/17 1130 Objective Remarks GENERAL: This is a well-nourished, well-developed patient, in no apparent distress. CARDIOVASCULAR: Regular rate and rhythm without murmurs, gallops, or rubs. RESPIRATORY: Clear to auscultation. Breath sounds equal bilaterally. No wheezes , rales, or rhonchi. GASTROINTESTINAL: Abdomen soft, non-tender, nondistended. Normal active bowel sounds MUSCULOSKELETAL: Extremities without clubbing, cyanosis, or edema. NEURO: Alert & Oriented to person, Moves all ext x4 no evidence of depression currently A/P Problem List: (1) Dementia ICD Code: F03.90 Status: Acute Plan: meds per psych Klonopin/temazepam Haldol/Risperdal no sign of depression (2) Urinary tract infection ICD Code: N39.0 Status: Acute Plan: pseudomonas 03/04 cultures Rx. Fortaz IV through 03/17 stable (3) Urinary retention ICD Code: R33.9 Status: Acute Plan: continue jorge per urology Follow-up as an outpatient (4) CHF (congestive heart failure) ICD Code: I50.9 Status: Acute Plan: cont Coreg, bumex add lisinopril (5) Atrial fibrillation ICD Code: I48.91 Status: Acute Plan: Currently rate controlled, digoxin level pending Discharge Planning Continue with discharge planning per case management Reena Randolph MD Mar 09, 2017 09:19
[2017-03-09] MEDS: SODIUM CHLORIDE 0.9% FLUSH 10 ML FLUSH IV FLUSH SCH ×2 (09:20→21:46)
[2017-03-09] MEDS: cefTAZidime INJ 2,000 MG in SODIUM CHLORIDE 0.9% INJ 100 ML IV SCH ×2 (09:20→21:46)
[2017-03-09] MEDS: PANTOPRAZOLE SOD 40 MG DELAYED RELEASE TAB PO SCH ×2 (09:21→21:00)
[2017-03-09] MEDS: clonazePAM 0.5 MG TAB PO SCH ×2 (09:21→21:45)
[2017-03-09] MEDS: CARVEDILOL 3.125 MG TAB PO SCH (09:21)
[2017-03-09] MEDS: risperiDONE 0.25 MG TAB PO SCH ×2 (09:21→21:45)
[2017-03-09] MEDS: POTASSIUM CHLORIDE 10 MEQ CONTROLLED RELEASE TAB PO SCH (09:21)
[2017-03-09] MEDS: DOCUSATE SODIUM 50 MG/SENNA 8.6 MG TAB PO SCH ×2 (09:21→21:00)
[2017-03-09] MEDS: LISINOPRIL 5 MG TAB PO SCH (10:00)
[2017-03-09 12:00] VITALS: BP 85/52; PULSE 90; RESP 16; TEMP 97.2; O2SAT 95
[2017-03-09 16:00] VITALS: BP 87/58; PULSE 100; RESP 16; TEMP 97.7; O2SAT 99
[2017-03-09] MEDS ORDERED: SODIUM CHLORID 0.9% 500 ML INJ 500 ML IV ONE (16:45)
[2017-03-09] MEDS: DIGOXIN 0.125 MG TAB PO SCH (21:45)
[2017-03-09 22:20] VITALS: BP 104/71; PULSE 135; RESP 22; TEMP 98.6; O2SAT 97
[2017-03-10 01:40] VITALS: BP 100/68; PULSE 100; RESP 22; TEMP 97.9; O2SAT 97
[2017-03-10] MEDS: LISINOPRIL 5 MG TAB PO SCH (09:00)
[2017-03-10] MEDS: POTASSIUM CHLORIDE 10 MEQ CONTROLLED RELEASE TAB PO SCH (10:02)
[2017-03-10] MEDS: risperiDONE 0.25 MG TAB PO SCH (10:03)
[2017-03-10] MEDS: PANTOPRAZOLE SOD 40 MG DELAYED RELEASE TAB PO SCH (10:03)
[2017-03-10] MEDS: CARVEDILOL 3.125 MG TAB PO SCH (10:04)
[2017-03-10] MEDS: clonazePAM 0.5 MG TAB PO SCH (10:04)
[2017-03-10] MEDS: DOCUSATE SODIUM 50 MG/SENNA 8.6 MG TAB PO SCH (10:05)
[2017-03-10] MEDS: SODIUM CHLORIDE 0.9% FLUSH 10 ML FLUSH IV FLUSH SCH (10:05)
[2017-03-10] MEDS: cefTAZidime INJ 2,000 MG in SODIUM CHLORIDE 0.9% INJ 100 ML IV SCH (10:06)
[2017-03-10 12:00] VITALS: BP 128/78; PULSE 72; RESP 18; TEMP 97.6; O2SAT 96
[2017-03-10] MEDS ORDERED: SODIUM CHLOR 0.9% 1000 ML INJ 1,000 ML IV SCH (12:15)
[2017-03-10] MEDS ORDERED: CLON.5 PO (12:22)
[2017-03-10] MEDS ORDERED: CARV3.125 PO (12:22)
[2017-03-10] MEDS ORDERED: DIGO0.25 PO (12:22)
--- NOTE | 2017-03-10 12:23 | HHI.PR ---
Subjective Remarks Patient seen and evaluated today in follow-up for UTI. Patient more sleepy on new regimen. She is less combative. Care plan discussed with [facility] nursing team Objective Vitals Vital Signs Date Time Temp Pulse Resp B/P Pulse Ox O2 Delivery O2 Flow Rate FiO2 03/10/17 04:00 03/10/17 01:40 97.9 100 22 100/68 97 03/09/17 22:20 98.6 135 22 104/71 97 03/09/17 16:00 97.7 100 16 87/58 99 I/O 03/09/17 03/09/17 03/09/17 03/10/17 03/10/17 03/10/17 07:00 15:00 23:00 07:00 15:00 23:00 Intake Total 100 ml 750 ml 60 ml 100 ml Output Total 250 ml 425 ml Balance -150 ml 750 ml 60 ml -325 ml Intake Oral 750 ml 60 ml IV Total 100 ml 100 ml Output Urine Total 250 ml 425 ml Bladder Scan Volume Amount 892 ml 892 ml # Bowel Movements 1 0 Result Diagram: 03/09/17 0811 Objective Remarks GENERAL: This is a well-nourished, well-developed patient, sleepy but easily awakened and pleasant CARDIOVASCULAR: Sinus tachycardia without murmurs, gallops, or rubs. RESPIRATORY: Clear to auscultation. Breath sounds equal bilaterally. No wheezes , rales, or rhonchi. GASTROINTESTINAL: Abdomen soft, non-tender, nondistended. Normal active bowel sounds MUSCULOSKELETAL: Extremities without clubbing, cyanosis, or edema. NEURO: Alert & Oriented to person, Moves all ext x4 no evidence of depression currently Urinary Catheter: Yes Jorge insert reason: Obstruction/Retention A/P Problem List: (1) Dementia ICD Code: F03.90 Status: Acute Plan: meds per psych We'll adjust current regimen of Klonopin/temazepam Haldol/Risperdal to improve alertness no sign of depression (2) Urinary tract infection ICD Code: N39.0 Status: Acute Plan: pseudomonas 03/04 cultures Rx. Fortaz IV through 03/17 stable (3) Urinary retention ICD Code: R33.9 Status: Acute Plan: continue jorge per urology Follow-up as an outpatient (4) CHF (congestive heart failure) ICD Code: I50.9 Status: Acute Plan: cont Coreg, bumex (held due to hypotension) Patient unable to tolerate lisinopril due to hypotension (5) Atrial fibrillation ICD Code: I48.91 Status: Acute Plan: Currently tachycardic digoxin level 0.5 increase dig and recheck level Discharge Planning Continue with discharge planning per case management Reena Randolph MD Mar 10, 2017 12:23
[2017-03-10 16:00] VITALS: BP 128/76; PULSE 82; RESP 17; TEMP 97.5; O2SAT 95
--- NOTE | 2017-03-10 18:15 | HHI.DS ---
Discharge Summary Admission Date Feb 28, 2017 at 21:35 Discharge Date: Mar 10, 2017 Admitting Diagnosis (1) Dementia ICD Code: F03.90 (2) Urinary tract infection ICD Code: N39.0 (3) Urinary retention ICD Code: R33.9 (4) CHF (congestive heart failure) ICD Code: I50.9 (5) Atrial fibrillation ICD Code: I48.91 Procedures Midline 03/07 Brief History - From Admission 82 yo F with PMH of recurrent UTIs, HTN, HLD, Afib who came to the [facility] department for further evaluation. Patient complaints of urinary frequency, pain with urination, suprapubic pain. She was recently in the hospital with the same provblems and she was discharged from SNF recently. The patient feels weak and not able to walk much. She has no fever, she complaints of chills at times. She is also nauseated but did not vomit. No diarrhea or constipation. The patient is a poor historian, history is obtained from the patient, daughter and records. CBC/BMP: 03/09/17 0811 Significant Findings Laboratory Tests Test 03/09/17 08:11 Red Blood Count 3.49 MIL/MM3 (4.00-5.30) Hemoglobin 10.8 GM/DL (11.6-15.3) Hematocrit 32.7 % (35.0-46.0) Digoxin Level 0.5 NG/ML (0.8-2.0) Imaging Last Impressions Foot X-Ray 03/06/17 0000 Signed Impressions: Service Date/Time: February 23:09 - CONCLUSION: 1. Decreased bone density and calcaneal spurs. Av Meadows MD PE at Discharge GENERAL: This is a well-nourished, well-developed patient, sleepy but easily awakened and pleasant CARDIOVASCULAR: Sinus tachycardia without murmurs, gallops, or rubs. RESPIRATORY: Clear to auscultation. Breath sounds equal bilaterally. No wheezes , rales, or rhonchi. GASTROINTESTINAL: Abdomen soft, non-tender, nondistended. Normal active bowel sounds MUSCULOSKELETAL: Extremities without clubbing, cyanosis, or edema. NEURO: Alert & Oriented to person, Moves all ext x4 no evidence of depression currently Pt update on day of discharge Please see daily progress note Hospital Course Patient was seen and evaluated for urinary tract infection which was pseudomonal and from outside cultures. She was seen by infectious disease specialist recommended for Fortaz to continue through 03/17. Patient has dementia and was seen by psychiatry and the medical team with adjustments in her medications. She did have some urinary retention for which a Abrams was placed and maintained after discharge. Patient also had some elevated troponins for which she was evaluated by cardiology. Due to the a symptomatic nature of this as well as her dementia management was conservative. She is recommended for outpatient urological follow-up.Patient did continue for discharge planning with assistance for case management. Pt Condition on Discharge: Stable Discharge Disposition: Disch w/ Home Health Serv Discharge Time: > 30 minutes Discharge Instructions DIET: Follow Instructions for: Heart Healthy Diet Activities you can perform: Regular-No Restrictions Follow up Referrals: Cardiology - 1 Week Neurology - 2 Weeks PCP Follow-up - 3-5 Days Urology - 1 Week with Robson Frost MD New Medications: Aspirin (Aspirin) 81 Mg Chew 81 MG CHEW DAILY Blood Clot Prevention #30 Ref 0 TAB Commode 3-in-1 (Commode 3-in-1) 1 Mis Mis 1 EA .ROUTE DIRECTED #1 Ref 0 EA Donepezil (Donepezil) 5 Mg Tab 5 MG PO HS Dementia #30 Ref 0 TAB Walker with Front Wheels (Walker with Front Wheels) 1 Mis Mis 1 EA .ROUTE DIRECTED #1 Ref 0 EA Wheelchair (Wheelchair) 1 Mis Mis 1 EA .ROUTE DIRECTED #1 Ref 0 EA Carvedilol (Coreg) 3.125 Mg Tab 3.125 MG PO DAILY heart failure #31 TAB Clonazepam (Klonopin) 0.5 Mg Tab 0.5 MG PO Q12HR PRN Agitation #20 TAB Digoxin (Digoxin) 0.25 Mg Tab 0.25 MG PO HS heart #31 TAB Sennosides-Docusate Sodium (Senna Plus 8.6-50 mg) 1 Tab Tab 1 TAB PO BID Constipation #60 TAB Continued Medications: Pantoprazole (Protonix) 40 Mg Tab 40 MG PO BID Reflux #30 Ref 0 TAB Potassium Chloride ER (Potassium Chloride ER) 10 Meq Cap 10 MEQ PO DAILY Electrolyte Replacement #30 Ref 0 CAP Discontinued Medications: Alprazolam (Xanax) 0.25 Mg Tab 0.25 MG PO BID Anxiety #10 Ref 0 TAB Bumetanide (Bumetanide) 2 Mg Tab 1 MG PO BID chf/edema #60 Ref 0 TAB Carvedilol (Coreg) 3.125 Mg Tab 3.125 MG PO BID #60 Ref 0 TAB Digoxin (Digoxin) 0.125 Mg Tab 0.125 MG PO HS Regulate Heart Beat #30 Ref 0 TAB Reena Randolph MD Mar 10, 2017 18:15
[2017-03-10] MEDS ORDERED: DIGOXIN 0.25 MG TAB PO SCH (21:00)
== END 2017-03-10 20:31 | disposition home or self-care (01) ==
LOC: NEDDLT 21:30 → INTOOBSV 21:35 → PH3A 21:35
PROVIDERS: ADMIT Hospitalist; ATTEND Hospitalist
DX: N39.0 Urinary tract infection, site not specified (principal); N17.9 Acute kidney failure, unspecified; R11.0 Nausea; M79.89 Other specified soft tissue disorders; M79.672 Pain in left foot; M77.32 Calcaneal spur, left foot; R45.1 Restlessness and agitation; R79.89 Other specified abnormal findings of blood chemistry; I11.0 Hypertensive heart disease with heart failure; I50.9 Heart failure, unspecified; I48.91 Unspecified atrial fibrillation; K21.9 Gastro-esophageal reflux disease without esophagitis; E78.5 Hyperlipidemia, unspecified; F03.90 Unspecified dementia, unspecified severity, without behavioral disturbance, psychotic disturbance, mood disturbance, and anxiety; Z87.891 Personal history of nicotine dependence; Z16.23 Resistance to quinolones and fluoroquinolones; Z79.899 Other long term (current) drug therapy
CPT/HCPCS: 36556; 36569; 71010; 73630; 76937; 80048; 80053; 80162; 81001; 82948; 83605; 83690; 83735; 84484; 85025; 85027; 85610; 85730; 87040; 87077; 87086; 87186; 93005; 93306; 96125; 96365; 97110; 97116; 97163; 97530; 99285; G0378; G9168; G9169; G9170; J0696; J0713; J1630; J1644; J1650; J2060; J2270; J2405; J2543; J3475; J3480; J7030; J7040; 99281

== ENCOUNTER 2017-03-11 11:03 | Inpatient (IN) | payer OTHER, MEDICARE ==
[2017-03-11] VITALS (16 sets, daily range): BP systolic 83–115; BP diastolic 51–75; PULSE 88–119; RESP 14–43; TEMP 97.7–98; O2SAT 76–100
[~2017-03-11] VITALS: Ht 152.4 cm; Wt 70.0 kg
[~2017-03-11 11:03] MED LIST changes: -ALPR.25 PO; +ASPI81CH CHEW; -BISACODYL 10 MG SUPP RECTAL PRN; -BUME2TAB PO; +CLON.5 PO; +COMMODE 3-IN-11 MIS; +DIGO0.25 PO; +DONE5TAB7 PO; -LACTULOSE SYRUP 20 GM/30 ML CUP PO PRN; -MAGNESIUM HYDROXIDE SUSP 30 ML CUP PO PRN; -ONDANSETRON HCL 4 MG/2 ML VIAL IVP PRN; +SENN1TAB PO; -SENNOSIDES 8.6 MG TAB PO PRN; -SODIUM CHLORIDE 0.9% FLUSH 10 ML FLUSH IV FLUSH PRN; +WALKER WHEELS/F1 MIS; +WHEEMIS3
[2017-03-11] MEDS ORDERED: CHLORHEXIDINE GLUCONATE 2 % 1 PACK (2 CLOTHS) TOP PRN (13:45)
[2017-03-11] MEDS ORDERED: MAGNESIUM HYDROXIDE SUSP 30 ML CUP PO PRN (13:45)
[2017-03-11] MEDS ORDERED: SENNOSIDES 8.6 MG TAB PO PRN (13:45)
[2017-03-11] MEDS ORDERED: LACTULOSE SYRUP 20 GM/30 ML CUP PO PRN (13:45)
[2017-03-11] MEDS ORDERED: MISCELLANEOUS NURSING INFORMATION XX SCH (13:45)
[2017-03-11] MEDS ORDERED: BISACODYL 10 MG SUPP RECTAL PRN (13:45)
[2017-03-11] MEDS ORDERED: METOPROLOL TARTRATE 5 MG/5 ML VIAL ONE (14:03)
[2017-03-11] MEDS ORDERED: ASPIRIN 81 MG CHEW TAB PO ONE (14:15)
[2017-03-11] MEDS ORDERED: METOPROLOL TARTRATE 5 MG/5 ML VIAL IV PUSH ONE ×2 (14:15→15:30)
[2017-03-11] MEDS ORDERED: POTASSIUM PHOSPHATE INJ 30 MMOL in SODIUM CHLOR 0.9% 250 ML INJ 250 ML IV PRN (14:28)
[2017-03-11] MEDS ORDERED: POTASSIUM PHOSPHATE MONOBASIC 500 MG TAB PO/TUBE PRN (14:28)
[2017-03-11] MEDS ORDERED: MAGNESIUM SULFATE INJ 4 GM in SODIUM CHLORIDE 0.9% INJ 92 ML IV PRN (14:30)
[2017-03-11] MEDS ORDERED: MAGNESIUM OXIDE 400 MG TAB PO PRN (14:30)
[2017-03-11] MEDS ORDERED: MAGNESIUM SULFATE INJ 2 GM in SODIUM CHLORIDE 0.9% INJ 96 ML IV PRN (14:30)
[2017-03-11] MEDS ORDERED: POTASSIUM CHLOR 20 MEQ PREMIX 100 ML IV PRN ×2 (14:30)
[2017-03-11] MEDS ORDERED: cefTRIAXone INJ 1,000 MG in SODIUM CHLORIDE 0.9% INJ 100 ML IV SCH (14:30)
[2017-03-11] MEDS ORDERED: POTASSIUM CHLOR 40 MEQ PREMIX 100 ML IV PRN (14:30)
[2017-03-11] MEDS ORDERED: POTASSIUM CHLORIDE 25 MEQ EFFERVESCENT TAB PO PRN (14:30)
--- NOTE | 2017-03-11 14:31 | HHI.HP ---
[facility] Service Critical Care Medicine Primary Care Physician Non-Staff Admission Diagnosis Diagnosis: (1) NSTEMI (non-ST elevation myocardial infarction) Diagnosis: Principal (2) Severe sepsis Diagnosis: Principal (3) Lactic acidosis Diagnosis: Principal (4) Urinary tract infection Diagnosis: Principal (5) Encephalopathy acute Diagnosis: Principal (6) Hypotension Diagnosis: Principal (7) Sinus tachycardia Diagnosis: Principal (8) Hypertension Diagnosis: Secondary (9) Dementia Diagnosis: Secondary (10) CHF (congestive heart failure) Diagnosis: Secondary (11) Atrial fibrillation Diagnosis: Secondary Chief Complaint: NSTEMI Sepsis Tachypnea Travel History International Travel<30 Days: No Contact w/Intl Traveler <30 Da: No Traveled to Known Affected Are: No Sepsis Criteria SIRS Criteria (2 or more): Heart rate over 90, RR > 20 or PaCO2 < 32, WBC > 13067, < 4000 or > 10% bands Sepsis Criteria (SIRS+source): Infect source susp/known Severe Sepsis (+one): Hypotension, Lactate >2 Criteria Outcome: Meets sepsis criteria History of Present Illness Patient is an 82-year-old female with past medical history significant for recurrent UTIs, atrial fibrillation, hypertension, dyslipidemia, dementia who was transferred from [place] emergency department after being diagnosed for NSTEMI. She presented with chest pain and EKG showed sinus tachycardia, and troponin was elevated at 4.43. Patient was given aspirin (by EMS) and started on IV heparin infusion. Patient was transferred to [facility] ICU per Dr. Keys's request. Other abnormal labs include BNP of 1330 and potassium of 3. Previous echo showed an ejection fraction of 45%. I evaluated the patient in the ICU. Appears in moderate distress, tachypneic, tachycardic, but denies chest pain (when asked in Syriac by RN). Patient was seen by Dr. Keys in the ICU, not a candidate for cardiac catheterization on interventions at this time. 2-D echo is pending. UA shows evidence of UTI. Started on cefepime and Diflucan (yeast present in UA). Repeat troponin and lactic acid pending at this time. Review of Systems ROS Limitations: Clinical Condition, Language Barrier Past Family Social History Allergies: Coded Allergies: Aspirin (Verified Allergy, Unknown, 03/11/17) pt sts ulcer Uncoded Allergies: antipsycotics (Allergy, Intermediate, Confusion, 03/01/17) Past Medical History Recurrent UTI Atrial fibrillation Dyslipidemia Hypertension Dementia Past Surgical History in the past Reported Medications Digoxin 0.25 Mg Tab 0.25 Mg PO HS Klonopin (Clonazepam) 0.5 Mg Tab 0.5 Mg PO Q12HR PRN Coreg (Carvedilol) 3.125 Mg Tab 3.125 Mg PO DAILY Aspirin 81 Mg Chew 81 Mg CHEW DAILY Donepezil 5 Mg Tab 5 Mg PO HS Senna Plus 8.6-50 mg (Sennosides-Docusate Sodium) 1 Tab Tab 1 Tab PO BID Protonix (Pantoprazole Sodium) 40 Mg Tab 40 Mg PO BID Potassium Chloride ER (Potassium Chloride) 10 Meq Cap 10 Meq PO DAILY Active Ordered Medications Reviewed Family History Unable to obtain due to language barrier Social History Quit smoking 40 years ago Physical Exam Physical Exam GENERAL: Alert awake, lady who is in moderate distress SKIN: Warm and dry. HEAD: Atraumatic. Normocephalic. EYES: Pupils equal and round. No scleral icterus. ENT: No nasal bleeding or discharge. NECK: Positive JVD CARDIOVASCULAR: Sinus tachycardia without murmur RESPIRATORY: Tachypneic. Clear to auscultation. Breath sounds equal bilaterally. GASTROINTESTINAL: Abdomen soft, non-tender, nondistended. Hepatic and splenic margins not palpable. MUSCULOSKELETAL: Extremities without clubbing, cyanosis, with minimal peripheral edema. No obvious deformities. NEUROLOGICAL: Awake and alert. Motor grossly within normal limits. No focal deficits Imaging CXR No acute findings Septic Shock Reassessment Heart: Other (tachycardic) Lungs: Clear Skin: Warm Peripheral Pulses: Weak Right Radial Weak Left Radial Capillary Refill: <2 seconds Assessment and Plan Assessment and Plan NEURO: Acute encephalopathy Dementia Use Haldol when necessary for agitation, otherwise minimize sedation Morphine IV PRN fo anxiety Continue home Aricept Encephalopathy most likely secondary to metabolic causes RESP: Respiratory insufficiency Tachypnea secondary to SIRS/sepsis Nasal cannula oxygen if needed DuoNeb PRN for CV: NSTEMI Hypotension Lactic acidosis Sinus tachycardia History of A. fib Elevated BNP s/p 2.5L bolus Normal saline No maintenance fluid at this time due to elevated BNP Await 2d echo, cardiology Dr. Keys, cycle troponin Received aspirin today currently on heparin infusion continue both Continue Coreg as tolerated Trend lactic acid, elevation is secondary to [place] and sepsis GI: Cardiac diet : Monitor renal function closely. Abrams catheter. ID: Severe sepsis UTI Placed on cefepime and Diflucan Follow-up on blood and urine culture HEME: Monitor CBC, CMP, coags ENDO: Hypokalemia Electrolyte replacement protocol PROPH: Bilateral lower extremity SCDs. IV Heparin, Protonix LINES: Utilize peripheral IVs, central line if needed CC time 40 min Code Status Full Problem Qualifiers (1) Urinary tract infection: Qualified Code: N39.0 - Urinary tract infection with hematuria, site unspecified (2) Hypertension: Qualified Code: I10 - Hypertension, unspecified type (3) Dementia: (4) CHF (congestive heart failure): Duy Valdez MD Mar 11, 2017 14:31
[2017-03-11] MEDS ORDERED: HEPARIN-D5W 25,000 U/250 ML 250 ML IV SCH (15:00)
[2017-03-11] MEDS ORDERED: ENOXAPARIN SODIUM 40 MG/0.4 ML SYRINGE SQ SCH (15:00)
--- NOTE | 2017-03-11 15:21 | MB ---
cc: HALLIE BRITTON MD DATE OF CONSULTATION: 03/11/2017 REASON FOR CONSULTATION Elevated troponin. HISTORY OF PRESENT ILLNESS Ms. Franco is an 82-year-old female who does have a history of atrial fibrillation, hypertension, hyperlipidemia and dementia. She was admitted for a UTI and discharged last week. She re-presented to the emergency room today with possible chest pain. The patient, however, is unable to give any history and really not able to give any complaints at this time. She does know her first name but does not know her last name. The history is essentially per the records. MEDICATIONS Outpatient medications include: 1. Digoxin. 2. Klonopin. 3. Coreg. 4. Aspirin. 5. Protonix. 6. Potassium. REVIEW OF SYSTEMS Not obtainable. SOCIAL HISTORY Not obtainable. ALLERGIES ANTIPSYCHOTICS. PHYSICAL EXAMINATION VITAL SIGNS: Heart rate 120, respiratory rate 20, blood pressure 100/66. GENERAL: In general she is in no apparent distress. NECK: Free from JVD. LUNGS: The lungs are decreased and clear to auscultation. CARDIOVASCULAR: Irregular tachycardic rhythm. ABDOMEN: Soft. EXTREMITIES: Free from edema. LABORATORY Lab values are significant for hemoglobin of 9.3, sodium 146, creatinine 0.6, troponin 4.4 and BNP 1330. IMAGING Chest x-ray is normal. IMPRESSION/RECOMMENDATIONS Elevated troponin: At this point this does appear most consistent with a secondary VT given her anemia and tachycardia. The source of her tachycardia and hypotension at this point it is not clear, thought it may be related to recurrent UTI. The patient did have a recent echo with an EF of 45%. I do agree with conservative management at this point and repeat echo. The patient will be placed on aspirin. Heparin was initiated in the emergency room and has been discontinued in favor of Lovenox. This is not totally unreasonable. Beta-blockers are felt relatively contraindicated though may be reasonable to use IV dosing. 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 Hallie Britton M.D. GREG/MARGIE /2:15 PM /3:18 PM
[2017-03-11 15:24] LABS: BACTERIA, URINE MANY /hpf; BLOOD, URINE SMALL (NEG); GLUCOSE,URINE NEG (NEG); KETONE, URINE TRACE mg/dL (NEG); MUCUS URINE FEW /lpf (OCC); NITRITE,URINE NEG (NEG); PH, URINE 5.5 (5.0-8.5); SQUAMOUS EPITHELIAL CELL URINE 1 /hpf (0-5); URINE COLOR YELLOW (YELLW/STRAW)
[2017-03-11 15:25] LABS: COMMENT (UR) CATH-CULTURE IND; CULTURE IF INDICATED CATH CULTURE IND
--- NOTE | 2017-03-11 15:31 | RADRPT ---
EXAM DATE/TIME: 03/11/2017 14:52 [facility] COMPARISON: CHEST SINGLE AP, March 11, 2017, 9:44. INDICATIONS : Short of breath MEDICAL HISTORY : Arthritis. Hypertension SURGICAL HISTORY : None. ENCOUNTER: Subsequent ACUITY: 2 days PAIN SCORE: Non-responsive. LOCATION: Bilateral chest FINDINGS: A single view of the chest demonstrates the lungs to be symmetrically aerated without evidence of mas s, infiltrate or effusion. Diffuse interstitial lung disease throughout the lungs. Marked atheroscle rotic disease. The cardiomediastinal contours are unremarkable. Right lower thoracic scoliosis CONCLUSION: Mild interstitial prominence throughout the lungs. Lower thoracic rightward scoliosis. Bobby Rivera MD on March 11, 2017 at 15:28 Board Certified Radiologist. This report was verified electronically.
[2017-03-11 15:43] LABS: HEMATOCRIT 30.5 % (35.0-46.0); MEAN CORPUSCULAR HEMOGLOBIN 32.2 PG (27.0-34.0); MEAN CORPUSCULAR HGB CONC 33.2 % (32.0-36.0); PLATELET COUNT 387 TH/MM3 (150-450); RED BLOOD COUNT 3.15 MIL/MM3 (4.00-5.30); RED CELL DISTRIBUTION WIDTH 15.5 % (11.6-17.2); REVIEW FLAG FINAL; WHITE BLOOD COUNT 13.6 TH/MM3 (4.0-11.0)
[2017-03-11 15:53] LABS: APTT (PATIENT) 68.6 SEC (24.3-30.1); INTERNATIONAL NORMALIZED RATIO 1.1 RATIO; PROTHROMBIN TIME - PATIENT 11.8 SEC (9.8-11.6)
[2017-03-11] MEDS: CEFEPIME INJ 2,000 MG in SODIUM CHLORIDE 0.9% INJ 100 ML IV SCH (16:03)
[2017-03-11] MEDS ORDERED: MORPHINE SULFATE 8 MG/ML INJ ONE (16:32)
[2017-03-11] MEDS ORDERED: MORPHINE SULFATE 8 MG/ML INJ IV PUSH ONE (16:45)
[2017-03-11] MEDS ORDERED: HALOPERIDOL LACTATE 5 MG/ML AMP IV PRN (17:00)
[2017-03-11] MEDS: FLUCONAZOLE 100 MG TAB PO SCH (18:11)
[2017-03-11] MEDS ORDERED: DOCUSATE SODIUM 50 MG/SENNA 8.6 MG TAB PO SCH (21:00)
[2017-03-11] MEDS: DOCUSATE SODIUM 50 MG/SENNA 8.6 MG TAB PO SCH (21:25)
[2017-03-11] MEDS: DIGOXIN 0.25 MG TAB PO SCH (21:25)
[2017-03-11] MEDS: DONEPEZIL HCL 5 MG TAB PO SCH (21:26)
[2017-03-11 22:01] LABS: APTT (PATIENT) 59.7 SEC (24.3-30.1)
[2017-03-11 22:10] LABS: MAGNESIUM 1.6 MG/DL (1.5-2.5)
[2017-03-12] VITALS (18 sets, daily range): BP systolic 70–132; BP diastolic 45–86; PULSE 57–145; RESP 18–29; TEMP 94–100.3; O2SAT 91–100
[2017-03-12] MEDS: CHLORHEXIDINE GLUCONATE 2 % 1 PACK (2 CLOTHS) TOP SCH (04:00)
[2017-03-12 04:25] LABS: BASOPHIL # 0.1 TH/MM3 (0-0.2); BASOPHIL % 0.8 % (0.0-2.0); EOSINOPHIL % 0.3 % (0.0-4.0); HEMATOCRIT 30.3 % (35.0-46.0); HEMO FLAGS DIFF FINAL; LYMPH % 21.7 % (9.0-44.0); MEAN CELL VOLUME 97.4 FL (80.0-100.0); MEAN CORPUSCULAR HGB CONC 32.8 % (32.0-36.0); MONO % 4.5 % (0.0-8.0); NEUT % 72.7 % (16.0-70.0); PLATELET COUNT 424 TH/MM3 (150-450); RED BLOOD COUNT 3.11 MIL/MM3 (4.00-5.30); RED CELL DISTRIBUTION WIDTH 15.4 % (11.6-17.2); WHITE BLOOD COUNT 13.8 TH/MM3 (4.0-11.0)
[2017-03-12 04:38] LABS: APTT (PATIENT) 53.9 SEC (24.3-30.1)
[2017-03-12 04:51] LABS: ANION GAP 10 MEQ/L (5-15); AST (GOT) 84 U/L (15-37); BICARBONATE 24.2 MEQ/L (21.0-32.0); BLOOD UREA NITROGEN 17 MG/DL (7-18); CHLORIDE 112 MEQ/L (98-107); GLOMERULAR FILTRATION RATE 67 ML/MIN (>89); MAGNESIUM 1.7 MG/DL (1.5-2.5); POTASSIUM 3.1 MEQ/L (3.5-5.1); SODIUM (NA) 146 MEQ/L (136-145)
[2017-03-12 04:52] LABS: ALT (GPT) 32 U/L (10-53)
[2017-03-12 04:54] LABS: ALKALINE PHOSPHATASE 63 U/L (45-117); TOTAL BILIRUBIN ADULT 0.4 MG/DL (0.2-1.0)
[2017-03-12] MEDS: RESP: ALBUTEROL 2.5 MG/IPRATROPIUM 0.5 MG NEB (PRN) INH ×2 (08:01→22:38)
--- NOTE | 2017-03-12 08:01 | PD.CARD.PN ---
Subjective Subjective Remarks NA Objective Medications Current Medications Medications (Trade) Dose Ordered Sig/Arlet Route Start Time Stop Time Status Last Admin (Protonix Inj) 40 mg DAILY IV 03/12/17 09:00 Miscellaneous Information 1 [id number] XX 03/11/17 13:45 (Chlorhexidine 2% Cloth) 3 pack Taper DAILY@04 TOP 03/12/17 04:00 03/08/18 03:59 03/12/17 04:00 (Chlorhexidine 2% Cloth) 3 pack UNSCH PRN TOP 03/11/17 13:45 (Steph-Colace) 1 tab BID PO 03/11/17 21:00 03/11/17 21:25 (Milk Of Magnesia Liq) 30 ml Q12H PRN PO 03/11/17 13:45 (Senokot) 17.2 mg Q12H PRN PO 03/11/17 13:45 (Dulcolax Supp) 10 mg DAILY PRN RECTAL 03/11/17 13:45 (Lactulose Liq) 30 ml DAILY PRN PO 03/11/17 13:45 (Aspirin Chew) 81 mg DAILY CHEW 03/12/17 09:00 (Coreg) 3.125 mg DAILY PO 03/12/17 09:00 (Lanoxin) 0.25 mg HS PO 03/11/17 21:00 03/11/17 21:25 (Aricept) 5 mg HS PO 03/11/17 21:00 03/11/17 21:26 Potassium Chloride 10 meq 10 meq DAILY PO 03/12/17 09:00 Potassium Chloride 100 ml @ 50 mls/hr Q2H PRN IV 03/11/17 14:30 (KCl 20 Meq Premix Inj) 100 ml @ 50 mls/hr Q2H PRN IV 03/11/17 14:30 Potassium Bicarb/ Potassium Chloride 50 meq 50 meq UNSCH PRN PO 03/11/17 14:30 Potassium Chloride 100 ml @ 25 mls/hr UNSCH PRN IV 03/11/17 14:30 Potassium Chloride 100 ml @ 50 mls/hr Q2H PRN IV 03/11/17 14:30 (Magnesium Sulfate Inj/NS Inj) 100 ml @ 50 mls/hr UNSCH PRN IV 03/11/17 14:30 Magnesium Oxide 800 mg 800 mg UNSCH PRN PO 03/11/17 14:30 (Magnesium Sulfate Inj/NS Inj) 100 ml @ 50 mls/hr UNSCH PRN IV 03/11/17 14:30 Potassium Phosphate 2000 mg 2,000 mg Q4H PRN PO 03/11/17 14:30 (Sodium Phosphate Inj/NS 250 ml Inj) 250 ml @ 42 mls/hr UNSCH PRN IV 03/11/17 14:30 Potassium Phosphate 2000 mg 2,000 mg UNSCH PRN PO/TUBE 03/11/17 14:28 Potassium Phosphate 30 mmol/ Sodium Chloride 260 ml @ 42 mls/hr UNSCH PRN IV 03/11/17 14:28 Cefepime HCl 2000 mg/Sodium Chloride 100 ml @ 200 mls/hr Q8H IV 03/11/17 16:00 03/11/17 16:03 (Heparin-D5W Inj) 250 ml @ 0 mls/hr TITRATE IV 03/11/17 15:00 (Diflucan) 100 mg DAILY PO 03/11/17 17:00 03/11/17 18:11 (Haldol Inj) 2 mg Q6H PRN IV 03/11/17 17:00 Vital Signs / I&O Vital Signs Date Time Temp Pulse Resp B/P Pulse Ox O2 Delivery O2 Flow Rate FiO2 03/12/17 04:00 112 03/12/17 04:00 98.0 115 20 125/86 93 03/12/17 03:00 99 03/12/17 02:00 103 03/12/17 00:01 97.8 97 20 111/62 94 03/12/17 00:00 96 03/12/17 00:00 96 20 91 03/11/17 23:30 94 17 99/57 100 03/11/17 23:00 89 14 92/53 100 03/11/17 22:37 100 Nasal Cannula 3.00 03/11/17 22:30 89 16 94/51 100 03/11/17 22:29 88 14 90/52 100 03/11/17 22:00 91 03/11/17 22:00 91 15 99 03/11/17 21:30 99 24 103/75 76 03/11/17 21:00 94 20 94/55 94 03/11/17 20:30 90 16 86/51 92 03/11/17 20:00 90 03/11/17 20:00 98.0 90 17 83/53 95 03/11/17 18:00 97 03/11/17 17:00 101 27 101/55 95 03/11/17 16:00 97.9 106 43 115/67 97 03/11/17 16:00 106 03/11/17 15:00 111 38 104/61 92 03/11/17 14:32 100 Nasal Cannula 3.00 03/11/17 14:00 119 03/11/17 14:00 97.7 119 28 111/73 100 I/O 03/11/17 03/11/17 03/11/17 03/12/17 03/12/17 03/12/17 07:00 15:00 23:00 07:00 15:00 23:00 Intake Total 110 ml 243 ml Output Total 250 ml 250 ml Balance -140 ml -7 ml IV Total 110 ml 243 ml Output Urine Total 250 ml 250 ml # Bowel Movements 0 2 Physical Exam GENERAL: Well developed, well nourished. No acute distress. HEENT: Jugular venous pressure is normal. CHEST: Lungs wheeze to auscultation bilaterally. Unlabored respiratory effort. CARDIAC: irregular rate and tachy rhythm without S3, S4, or murmur. ABDOMEN: Soft, nontender, EXTREMITIES: No clubbing, cyanosis, or edema. Laboratory Laboratory Tests Test 03/11/17 03/11/17 03/11/17 03/11/17 13:30 13:40 13:45 15:00 Nasal Screen MRSA (PCR) MRSA NOT DETECTED Urine Color YELLOW Urine Turbidity CLOUDY Urine pH 5.5 Urine Specific [place] 1.020 Urine Protein 30 mg/dL Urine Glucose (UA) NEG mg/dL Urine Ketones TRACE mg/dL Urine Occult Blood SMALL Urine Nitrite NEG Urine Bilirubin NEG Urine Urobilinogen LESS THAN 2.0 MG/DL Urine Leukocyte Esterase LARGE Urine RBC 174 /hpf Urine WBC /hpf Urine Squamous Epithelial 1 /hpf Cells Urine Amorphous Sediment RARE Urine Bacteria MANY /hpf Urine Mucus FEW /lpf Urine Yeast with Hyphae MANY Urine Yeast (Budding) MANY Microscopic Urinalysis Comment CATH-CULTURE IND Troponin I 5.97 NG/ML White Blood Count 13.6 TH/MM3 Red Blood Count 3.15 MIL/MM3 Hemoglobin 10.1 GM/DL Hematocrit 30.5 % Mean Corpuscular Volume 97.0 FL Mean Corpuscular Hemoglobin 32.2 PG Mean Corpuscular Hemoglobin 33.2 % Concent Red Cell Distribution Width 15.5 % Platelet Count 387 TH/MM3 Mean Platelet Volume 8.9 FL Prothrombin Time 11.8 SEC Prothromb Time International 1.1 RATIO Ratio Activated Partial 68.6 SEC Thromboplast Time Lactic Acid Level 2.7 mmol/L Test 03/11/17 03/12/17 21:29 03:40 Activated Partial 59.7 SEC 53.9 SEC Thromboplast Time Phosphorus Level 2.6 MG/DL Magnesium Level 1.6 MG/DL 1.7 MG/DL Troponin I 5.91 NG/ML White Blood Count 13.8 TH/MM3 Red Blood Count 3.11 MIL/MM3 Hemoglobin 9.9 GM/DL Hematocrit 30.3 % Mean Corpuscular Volume 97.4 FL Mean Corpuscular Hemoglobin 32.0 PG Mean Corpuscular Hemoglobin 32.8 % Concent Red Cell Distribution Width 15.4 % Platelet Count 424 TH/MM3 Mean Platelet Volume 8.8 FL Neutrophils (%) (Auto) 72.7 % Lymphocytes (%) (Auto) 21.7 % Monocytes (%) (Auto) 4.5 % Eosinophils (%) (Auto) 0.3 % Basophils (%) (Auto) 0.8 % Neutrophils # (Auto) 10.0 TH/MM3 Lymphocytes # (Auto) 3.0 TH/MM3 Monocytes # (Auto) 0.6 TH/MM3 Eosinophils # (Auto) 0.0 TH/MM3 Basophils # (Auto) 0.1 TH/MM3 CBC Comment DIFF FINAL Differential Comment Sodium Level 146 MEQ/L Potassium Level 3.1 MEQ/L Chloride Level 112 MEQ/L Carbon Dioxide Level 24.2 MEQ/L Anion Gap 10 MEQ/L Blood Urea Nitrogen 17 MG/DL Creatinine 0.81 MG/DL Estimat Glomerular Filtration 67 ML/MIN Rate Random Glucose 119 MG/DL Calcium Level 8.7 MG/DL Total Bilirubin 0.4 MG/DL Aspartate Amino Transf 84 U/L (AST/SGOT) Alanine Aminotransferase 32 U/L (ALT/SGPT) Alkaline Phosphatase 63 U/L Total Protein 5.9 GM/DL Albumin 2.4 GM/DL Imaging Last 72 hours Impressions Chest X-Ray 03/11/17 0000 Signed Impressions: Service Date/Time: Saturday, March 11, 2017 14:52 - CONCLUSION: Mild interstitial prominence throughout the lungs. Lower thoracic rightward scoliosis. Bobby Rivera MD Assessment and Plan Assessment and Plan AF- poor rate control with resp distress - address resp status, NSTEMI- not clear if primary or secondary -poor/not revasc candidate resp -oxygen placed back on, tx per [facility] Anemia UTI sepsis- [facility] Xiao Keys MD Mar 12, 2017 08:01
[2017-03-12] MEDS: CEFEPIME INJ 2,000 MG in SODIUM CHLORIDE 0.9% INJ 100 ML IV SCH ×2 (08:29→17:00)
[2017-03-12] MEDS: POTASSIUM CHLORIDE 10 MEQ CAP PO SCH (08:33)
[2017-03-12] MEDS: ASPIRIN 81 MG CHEW TAB CHEW SCH (08:33)
[2017-03-12] MEDS: FLUCONAZOLE 100 MG TAB PO SCH (08:33)
[2017-03-12] MEDS: DOCUSATE SODIUM 50 MG/SENNA 8.6 MG TAB PO SCH ×2 (08:33→21:00)
[2017-03-12] MEDS: PANTOPRAZOLE SODIUM 40 MG VIAL IV SCH (08:33)
[2017-03-12] MEDS ORDERED: CARVEDILOL 3.125 MG TAB PO SCH (09:00)
[2017-03-12] MEDS ORDERED: DOPamine INJ PREMIX 500 ML IV SCH (10:45)
[2017-03-12] MEDS ORDERED: TERBUTALINE INJ 1 MG/ML AMP SQ PRN ×3 (10:45→20:30)
[2017-03-12] MEDS ORDERED: NOREPINEPHRINE-DEXTROSE DRIP 250 ML IV ONE (10:48)
[2017-03-12] MEDS ORDERED: MIDAZOLAM HCL 5 MG/ML VIAL (1 ML) ONE (11:01)
[2017-03-12] MEDS ORDERED: SODIUM BICARBONATE 8.4% INJ 50 MEQ/50 ML SYR ONE (11:02)
[2017-03-12] MEDS ORDERED: NOREPINEPHRINE 4 MG/D5W 250 ML IV SCH (11:30)
--- NOTE | 2017-03-12 11:38 | PD.PROCEDR ---
Procedure Note Procedure After the risks and benefits were discussed the following procedure was performed: INTUBATION: The patient was put in optimal position for the procedure. Rapid sequence intubation was initiated by me using no medication. DL with Mac 4 blade , grade 1 view. The patient was intubated with a 7.5 cuffed endotracheal tube. Tube placement was confirmed by visualization of the tube and balloon passing through the cords, capnometry and subsequent chest x-ray. Breath sounds were equal and well aerated bilaterally postintubation. No breath sounds over stomach. Patient tolerated procedure well. Duy Valdez MD Mar 12, 2017 11:38
--- NOTE | 2017-03-12 11:40 | PD.PROCEDR ---
Central Line Procedure REASON FOR PROCEDURE Central venous access PROCEDURE PERFORMED Central line placement: L subclavian central line CONSENT Emergency procedure ANESTHESIA Local injection of 1% Lidocaine DESCRIPTION OF THE PROCEDURE The patient was placed in supine, mild Trendelenburg position. The area was exposed and cleansed with ChloraPrep, times two. Large sterile drape was used to cover the patient, with the site exposed, under sterile conditions including cap, face mask, sterile gown, and sterile gloves. On single attempt, the introducer needle was inserted with negative pressure in syringe and venous flash was obtained. The guide wire was then advanced without any restriction and the needle was removed. The dilator was used without any complications. Using Seldinger technique the 20 cm, 7 [place], triple-lumen catheter was advanced over the guide wire to a depth of 17 centimeters. The guide wire was removed. All ports were aspirated with dark venous blood return and flushed easily with sterile saline. All ports were capped. Antibiotic disc was placed around central line at puncture site. The central line was secured to the skin with two interrupted 2.0 silk sutures. The area was bandaged with sterile see- through central line bandage. COMPLICATIONS: No apparent complications ESTIMATED BLOOD LOSS: Less than 1 cc. Duy Valdez MD Mar 12, 2017 11:40
--- NOTE | 2017-03-12 12:20 | RADRPT ---
EXAM DATE/TIME: 03/12/2017 11:30 [facility] COMPARISON: CHEST SINGLE AP, March 11, 2017, 14:52. INDICATIONS : Central line and post intubation, respiratory disease. MEDICAL HISTORY : None. SURGICAL HISTORY : None. ENCOUNTER: Initial ACUITY: 1 day PAIN SCORE: 0/10 LOCATION: Bilateral chest FINDINGS: A single view of the chest demonstrates bilateral perihilar edema. Endotracheal tube with tip right a t the orifice of the main stem bronchus. This should be retracted at least 2 cm. Left subclavian cent ral line with tip in the SVC. Heart normal in size.. Osseous structures are intact. CONCLUSION: 1. Endotracheal tube with tip at the orifice of the right mainstem bronchus. This should be retracted at least 2 cm. 2. Bilateral perihilar airspace disease likely edema. Evans Augustin MD on March 12, 2017 at 12:18 Board Certified Radiologist. This report was verified electronically.
[2017-03-12] MEDS ORDERED: MIDAZOLAM 100 MG/NS 100 ML DRIP Premix IV SCH (12:30)
[2017-03-12] MEDS ORDERED: SODIUM CHLOR 0.9% 1000 ML INJ 1,000 ML IV ONE (12:45)
--- NOTE | 2017-03-12 12:54 | ECHRPT ---
Indication: ACUTE [place] CONCLUSIONS Dilated left ventricle with severely decreased systolic function. EF 20% This is significantly decreased from the echo from 03/04/2017 which the EF was 45%. Utnlqzqi-tw-uxjurm mitral valve regurgitation. Aortic valve sclerosis is present without significant stenosis. Mild aortic valve regurgitation. The left atrial size is moderately dilated. There is moderate to severe tricuspid valve regurgitation. There is estimated dywaiise-vu-jfccrn pulmonary hypertension present (range 60-70 mmHg). BP: 100 / 66 HR: 122 Rhythm: Atrial tach vs Uncontolled atria l fib MEASUREMENTS (Male / Female) Normal Values Technical Quality:Very technically difficult study 2D ECHO LV Diastolic Diameter PLAX 4.5 cm 4.2 - 5.9 / 3.9 - 5.3 cm LV Systolic Diameter PLAX 4.3 cm IVS Diastolic Thickness 0.8 cm 0.6 - 1.0 / 0.6 - 0.9 cm LVPW Diastolic Thickness 0.8 cm 0.6 - 1.0 / 0.6 - 0.9 cm LV Relative Wall Thickness 0.4 LVOT Diameter 1.9 cm Aortic Root Diameter 2.8 cm LA Systolic Diameter LX 2.7 cm 3.0 - 4.0 / 2.7 - 3.8 cm M-MODE AV Cusp Separation MM 1.3 cm DOPPLER AV Peak Velocity 97.8 cm/s AV Peak Gradient 3.8 mmHg AV Mean Gradient 2.0 mmHg AV Velocity Time Integral 14.0 cm AI Peak Velocity 326.5 cm/s AI Peak Gradient 42.6 mmHg AI Pressure Half Time 215.5 ms LVOT Peak Velocity 63.9 cm/s LVOT Peak Gradient 1.6 mmHg LVOT Velocity Time Integral 7.4 cm LVOT Cardiac Index 1674.7 cm/minm AV Area Cont Eq vti 1.5 cm AV Area Cont Eq pk 1.9 cm Mitral E Point Velocity 134.0 cm/s LV E' Lateral Velocity 2.1 cm/s Mitral E to LV E' Lateral Ratio 62.6 LV E' Septal Velocity 3.3 cm/s Mitral E to LV E' Septal Ratio 40.5 TR Peak Velocity 372.0 cm/s TR Peak Gradient 55.4 mmHg PV Peak Velocity 61.7 cm/s PV Peak Gradient 1.5 mmHg FINDINGS LEFT VENTRICLE The basal portion of the LV moves best of the whole ventricle. The remainder of the LV is severely decreased and in the range of 15-25%. This is significantly decreased from the echo from 03/04/2017 which the EF was 45%. RIGHT VENTRICLE Normal right ventricular size and systolic function. LEFT ATRIUM The left atrial size is moderately dilated. RIGHT ATRIUM The right atrial size is mildly dilated. ATRIAL SEPTUM Normal atrial septal thickness without atrial level shunting by limited color doppler interrogation. AORTA The aortic root and proximal ascending aorta are normal in size on limited imaging. MITRAL VALVE Structurally normal mitral valve. Arsecxql-ss-okyagk mitral valve regurgitation. AORTIC VALVE Aortic valve sclerosis is present without significant stenosis. Mild aortic valve regurgitation. TRICUSPID VALVE Structurally normal tricuspid valve. There is moderate to severe tricuspid valve regurgitation. There is estimated qzmlxggj-bm-jzkffw pulmonary hypertension present (range 60-70 mmHg). PULMONARY VALVE The pulmonary valve is not well visualized. VESSELS The inferior vena cava is normal in size. PERICARDIUM No pericardial effusion. Bobby Doherty MD, FACC (Electronically Signed) Final Date:12 March 2017 12:53
[2017-03-12] MEDS ORDERED: MIDAZOLAM HCL 5 MG/ML VIAL (1 ML) IV PUSH ONE (13:00)
--- NOTE | 2017-03-12 13:14 | RADRPT ---
EXAM DATE/TIME: 03/12/2017 13:00 [facility] COMPARISON: No previous studies available for comparison. INDICATIONS : Short of breath with altered mental status. RADIATION DOSE: 26.79 CTDIvol (mGy) MEDICAL HISTORY : Cardiovascular disease. Hypertension. Chronic obstructive pulmonary disease.Ulcer. SURGICAL HISTORY : section. ENCOUNTER: Initial ACUITY: 1 day PAIN SCALE: Non-responsive LOCATION: Bilateral cranial TECHNIQUE: Multiple contiguous axial images were obtained of the head. Using automated exposure control and adj ustment of the mA and/or kV according to patient size, radiation dose was kept as low as reasonably a chievable to obtain optimal diagnostic quality images. DICOM format image data is available electro nically for review and comparison. FINDINGS: There is marked central and cortical atrophy with dilatation of ventricular and sulcal spaces. Areas of low-attenuation are seen throughout the white matter. There is no parenchymal hemorrhage, acute i nfarction or mass lesion identified. There are no extra-axial fluid collections appreciated. The po sterior fossa is unremarkable with midline fourth ventricle. 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 The port ion of the orbits and paranasal sinuses visualized are unremarkable. CONCLUSION: 1. Cerebral atrophy and chronic ischemic small vessel vasculopathy. Evans Augustin MD on March 12, 2017 at 13:11 Board Certified Radiologist. This report was verified electronically.
--- NOTE | 2017-03-12 14:00 | HHI.CCPN ---
Subjective Remarks/Hospital Course Patient is an 82-year-old female with past medical history significant for recurrent UTIs, atrial fibrillation, hypertension, dyslipidemia, dementia who was transferred from [facility] emergency department after being diagnosed for NSTEMI. She presented with chest pain and EKG showed sinus tachycardia, and troponin was elevated at 4.43. Patient was given aspirin (by EMS) and started on IV heparin infusion. Patient was transferred to [facility] ICU per Dr. Keys's request. Other abnormal labs include BNP of 1330 and potassium of 3. Previous echo showed an ejection fraction of 45%. I evaluated the patient in the ICU. Appears in moderate distress, tachypneic, tachycardic, but denies chest pain (when asked in Ukrainian by RN). Patient was seen by Dr. Keys in the ICU, not a candidate for cardiac catheterization on interventions at this time. 2-D echo is pending. UA shows evidence of UTI. Started on cefepime and Diflucan (yeast present in UA). Repeat troponin and lactic acid pending at this time. SUBJ 03/12: I rounded on patient at about 0830 AM, patient was communicative tachypneic but not in severe distress. I was emergently called to the bedside at 10:30 AM patient was unresponsive agonal breathing with blood pressure 60/29 , bradycardic. Emergently started on dopamine. Patient was not protecting airway and I emergently intubated and placed on mechanical ventilation. An emergency left subclavian central line also placed. Levophed was added due to persistent hypotension. Patient appears to be in severe cardiogenic shock. EF 15 -20% down from 40% on 03/04/17. Patient also has moderate to severe MR, moderate to severe TR with moderate to severe pulmonary hypertension. I have discussed with Dr. Keys, she does not think patient is a candidate for any invasive therapy due to advanced age and comorbidities including dementia. I have updated daughter Cata Objective Vital Signs Date Time Temp Pulse Resp B/P Pulse Ox O2 Delivery O2 Flow Rate FiO2 03/12/17 13:00 100 100 03/12/17 10:00 99 03/12/17 08:02 Nasal Cannula 3.00 03/12/17 04:00 98.0 20 125/86 Intake and Output 03/11/17 03/11/17 03/12/17 08:00 16:00 00:00 Intake Total 110 ml Output Total 250 ml Balance -140 ml Result Diagram: 03/12/17 0340 03/12/17 0340 Imaging CXR No acute findings Objective Remarks GENERAL: 82-year-old female acutely critically ill agonal breathing unresponsive SKIN: Warm and dry. HEAD: Atraumatic. EYES: Pupils equal and round. No scleral icterus. ENT: No nasal bleeding or discharge. Airway patent NECK: Positive JVD CARDIOVASCULAR: Bradycardic, hypotensive. Probable S3. Systolic murmur at the apex RESPIRATORY: Agonal breathing, breath sounds diminished bilaterally. Few basilar crackles GASTROINTESTINAL: Abdomen soft, non-tender, nondistended. NEUROLOGICAL: Unresponsive with agonal breathing A/P Assessment and Plan NEURO: Acute encephalopathy Dementia Did not need any medication for intubation Use Versed infusion if needed for ventilator synchrony Continue home Aricept Encephalopathy most likely secondary to metabolic causes RESP: Acute respiratory failure History of COPD Pulmonary artery hypertension Emergently intubated and placed on mechanical ventilation Ventilator bundle DuoNeb PRN for Bilateral pleural effusion secondary to CHF CV: NSTEMI Cardiogenic shock Congestive heart failure Lactic acidosis Ischemic cardiomyopathy with ejection fraction 15-20% Moderate to severe mitral and tricuspid regurgitation History of A. fib s/p 2.5L bolus 03/11. Discontinue IV fluids due to pulmonary edema Ejection fraction 15-20-20% today, in comparison to echocardiogram on 03/04/17 EF 40% Currently on Levophed and dopamine to keep map above 65. Star Milrinone Check central venous gas Arterial line And flow track monitoring Continue aspirin. Heparin on hold for invasive procedures Hold Coreg Lactic acid elevation secondary to hypoperfusion and acute UT GI: NPO. IV Protonix : Monitor renal function closely. Abrams catheter. ID: Severe sepsis UTI Continue cefepime and Diflucan Follow-up on blood and urine culture HEME: Monitor CBC, CMP, coags ENDO: Hypokalemia Electrolyte replacement protocol PROPH: Bilateral lower extremity SCDs. IV Heparin, Protonix LINES: Left subclavian central line placed CC time 82 min excluding procedures Patient remains critically ill with guarded prognosis. She is in multiorgan failure demonstrated by cardiogenic shock, congestive heart failure, acute respiratory failure, acute encephalopathy and sepsis. I have discussed in detail with daughter Cata Yin. She understand the critical nature of the illness and poor prognosis but commands to continue full code and full care. I have discussed with Dr. Keys who states that patient is not a candidate for invasive interventions. I have consulted the palliative care with assistance with decision making Duy Valdez MD Mar 12, 2017 14:00
[2017-03-12 14:10] LABS: AUTOMATED NEUTROPHIL # 19.5 TH/MM3 (1.8-7.7); BASOPHIL % 0.2 % (0.0-2.0); EOSINOPHIL % 0.1 % (0.0-4.0); HEMATOCRIT 32.3 % (35.0-46.0); LYMPHOCYTE # 0.6 TH/MM3 (1.0-4.8); MEAN CELL VOLUME 98.7 FL (80.0-100.0); MEAN CORPUSCULAR HEMOGLOBIN 30.8 PG (27.0-34.0); MEAN CORPUSCULAR HGB CONC 31.2 % (32.0-36.0); MONO % 3.7 % (0.0-8.0); PLATELET COUNT 480 TH/MM3 (150-450); RED BLOOD COUNT 3.27 MIL/MM3 (4.00-5.30); RED CELL DISTRIBUTION WIDTH 15.7 % (11.6-17.2)
[2017-03-12 14:12] LABS: HEMO FLAGS AUTO DIFF
--- NOTE | 2017-03-12 15:59 | PD.PROCEDR ---
Procedure Note Procedure PROCEDURE PERFORMED Right femoral arterial line, ultrasound-guided CONSENT Emergency procedure ANESTHESIA Local injection of 1% Lidocaine DESCRIPTION OF THE PROCEDURE The patient was placed in supine, position. The area was exposed and cleansed with ChloraPrep, times two. Large sterile drape was used to cover the patient, with the site exposed, under sterile conditions including cap, face mask, sterile gown, and sterile gloves. On single attempt, the introducer needle was inserted with negative pressure in syringe and arterial flash was obtained. The guide wire was then advanced without any restriction and the needle was removed. Using Seldinger technique the 20 G, arterial catheter was advanced over the guide wire. The guide wire was removed. The arterial line was secured to the skin with one interrupted 2.0 silk sutures. The area was bandaged with sterile see-through central line bandage. Duy Valdez MD Mar 12, 2017 15:59
[2017-03-12] MEDS: MILRINONE INJ 20 MG in SODIUM CHLORIDE 0.9% INJ 80 ML IV SCH (16:29)
[2017-03-12] MEDS: NOREPINEPHRINE-DEXTROSE DRIP 250 ML IV SCH ×2 (16:29→19:29)
[2017-03-12] MEDS: METOPROLOL TARTRATE 25 MG TAB PO SCH (16:35)
[2017-03-12 17:24] LABS: BLOOD GAS BASE EXCESS -6.1 mmol/L (-2-2); BLOOD GAS CARBOXYHEMOGLOBIN 1.5 % (0-4); BLOOD GAS HCO3 19 mmol/L (22-26); BLOOD GAS METHEMOGLOBIN 1.2 % (0-2); BLOOD GAS O2 HGB SATURATION 95 % (90-100); BLOOD GAS OXYGEN CONTENT 13.3 Vol % (12.0-20.0); BLOOD GAS PCO2 35 mmHg (38-42); BLOOD GAS PO2 95 mmHg (61-120); BLOOD GAS TOTAL HGB 9.9 G/DL (12.0-16.0); CRITICAL VALUE NO; DRAW SITE ART LINE; FIO2 40 %; OXYGEN DEVICE VENTILATOR; TEMP CORR TO 98.6; VENT SETTINGS 500/14/5PEEP
[2017-03-12 17:25] LABS: STAT NO
--- NOTE | 2017-03-12 17:40 | PD.CONS ---
Consult Service Palliative Care Consult Requested By Dr. Valdez. Primary Care Physician Non-Staff Reason for Consultation a. To assist with evaluation and management of symptoms including: Shortness of breath and debility. b. To assist medical decision maker(s) with: better understanding of current medical conditions; weighing benefits/burdens of medical treatment options; making medical treatment decisions. . (Amy Turk) HPI History of Present Illness Mrs. Franco is a 82-year-old female with a past medical history of dementia originally diagnosed in 2013, recurrent UTIs, urinary retention, hypertension and atrial fibrillation. Patient presented to ED on 03/11/17 via EMS for evaluation of chest pain. Laboratory workup indicating troponin 4.43 and BNP 1330. EKG revealing sinus tachycardia. Patient was transfer to [facility] for further management of non-STEMI. [place] [facility] was admitted to medical ICU secondary to sepsis. Patient was on distress, tachypnea , tachycardic. She was seen by Dr. Keys in the ICU, not a candidate for any invasive procedures. Medical management recommended. Echocardiogram 1916 showing EF of 20% which is a significant decrease from the echo on 03/04/17 showing EF of 45%. In addition, moderate to severe mitral valve regurgitation. Clinical course complicated by severe cardiac shock. Patient unresponsive with agonal breathings and BP of 60/29 this morning. She was emergently intubated and placed on mechanical ventilation. She was started on dopamine drip. Levophed drip was added subsequently secondary to persistent hypotension. Head CT negative for acute process, cerebral atrophy and chronic ischemia changes found. Chest x-ray revealing pulmonary edema. Laboratory workup showing worsening leukocytosis, WBC 21.0, Hgb 10.1, platelet count 480. Sodium 146, potassium 3.1, BUN/creatinine 17/0.81. Lactic acid 9.8 from 2.7 yesterday. Troponin remain elevated, 5.91 yesterday, 5.25 today. Palliative care has been consulted for further clarifications of goals of care given patient's worsening clinical condition and poor prognosis. Reviewed medical records. Recent acute hospitalization from 02/28/17 to 03/10/17 secondary to UTI. At that time, patient was placed on antibiotics. Cardiology , Dr. Gatica consulted on 03/04/17 for evaluation of chest pain, angina. Not a good candidate for any invasive procedure, medical management recommended. Psychiatry was consulted on 03/07/17 for evaluation of dementia with behavioral disturbances vs delirium. Medical management with Haldol as needed was recommended. Patient seen in ICU. Orally intubated on mechanical ventilation. Unresponsive to verbal or tactile stimuli, sedated with Versed. Hypothermic, temperature 94.0 axillary. 40% FiO2. No family at bedside. Telephone conversation with patient's daughter Cata Yin. Obtained patient' s past medical history and psychosocial history. Total tells me that patient has had a progressive clinical decline since December 2016. Recent acute hospitalization starting in December 2016 at [facility] secondary to UTI and GI bleed. Daughter reports that at that time patient's prognosis was very poor and hospice was recommended. Daughter reports that patient was enrolled into hospice just to get her out of that hospital. Upon discharge, patient was transported by family to [facility] where she was admitted for 18 days. Patient was discharged to [facility] for rehabilitation where she stayed for 20 days but was unable to participate in physical therapy for most of the time she was there. Patient at that time was discharged home with home health. Subsequently admitted to [facility] on 02/28/17 as indicated above. Daughter reports that patient was diagnosed with dementia in 2013. However, indicates that patient was independent with most ADLs. Requiring standby assistance with showers. Medical update provided. Shared concerns of patient's worsening critical condition to include cardiogenic shock, sepsis, non-STEMI. Discussed risks, benefits and limitations of CPR given patient's critical condition. Discussed with daughter that patient is not likely to survive this hospitalization given multiple comorbidities, recent prolonged hospitalizations, clinical decline within the past 2 months and acute events. Daughter tells me that patient " will survive this hospitalization as she has done it before". Daughter further added "I'm not going to DNR my mother". As per daughter, goals of care is to continue aggressive management to include full code. Daughter agreed with meeting with palliative care tomorrow 03/13/17 30 p.m. Function/Cognitive Trajectory Progressive functional decline, worsen during the past 3 months. Cognitive decline secondary to dementia originally diagnosed in 2013. Patient ambulating without assistance device. Mostly independent with ADLs, requiring standby assistance with showers. . (Amy Turk) Review of Systems ROS Limitations: Clinical Condition, Intubated, Unresponsive Constitutional: COMPLAINS OF: Fatigue, Generalized weakness Endocrine: DENIES: Heat/cold intolerance Ears, nose, mouth, throat: DENIES: Nasal discharge Respiratory: COMPLAINS OF: Apneas, Shortness of breath Cardiovascular: COMPLAINS OF: Chest pain, Dyspnea on Exertion, Lower Extremity Edema Gastrointestinal: DENIES: Constipation, Nausea, Vomiting, Difficulty Swallowing Genitourinary: COMPLAINS OF: Urinary incontinence Musculoskeletal: COMPLAINS OF: Decreased range of motion Integumentary: DENIES: Abnormal pigmentation Hematologic/Lymphatics: COMPLAINS OF: Bruising Immunologic/Allergic: DENIES: Eczema Neurologic: COMPLAINS OF: Abnormal gait, DENIES: Seizures Psychiatric: COMPLAINS OF: Anxiety, Confusion, Depression, Agitation Other ROS: Limited ROS secondary to patient's clinical condition, intubated on mechanical ventilation. ROS obtained from medical records, patient's family and clinical observation. . (Amy Turk) Past Family Social History Coded Allergies: aspirin (Unverified Allergy, Unknown, 04/08/17) pt sts ulcer *MDRO Multi-Drug Resistant Organism (Verified Adverse Reaction, Unknown, ) VRE (urine) 03/11/17 Uncoded Allergies: antipsycotics (Allergy, Intermediate, Confusion, 03/01/17) Past Medical History Dementia Recurrent UTIs Urinary retention Atrial fibrillation Hypertension GERD Hyperlipidemia Recent history of GI bleed Anemia . Past Surgical History . Reported Medications Digoxin 0.25 Mg Tab 0.25 Mg PO HS Klonopin (Clonazepam) 0.5 Mg Tab 0.5 Mg PO Q12HR PRN Coreg (Carvedilol) 3.125 Mg Tab 3.125 Mg PO DAILY Wheelchair (Device) 1 Mis Mis 1 Ea .ROUTE DIRECTED Aspirin 81 Mg Chew 81 Mg CHEW DAILY Commode 3-in-1 (Device) 1 Mis Mis 1 Ea .ROUTE DIRECTED Walker with Front Wheels (Device) 1 Mis Mis 1 Ea .ROUTE DIRECTED Donepezil 5 Mg Tab 5 Mg PO HS Senna Plus 8.6-50 mg (Sennosides-Docusate Sodium) 1 Tab Tab 1 Tab PO BID Protonix (Pantoprazole Sodium) 40 Mg Tab 40 Mg PO BID Potassium Chloride ER (Potassium Chloride) 10 Meq Cap 10 Meq PO DAILY . Current Medications Medications (Trade) Dose Ordered Sig/Arlet Route Start Time Stop Time Status Last Admin (Protonix Inj) 40 mg DAILY IV 03/12/17 09:00 03/12/17 08:33 Miscellaneous Information 1 [id number] XX 03/11/17 13:45 (Chlorhexidine 2% Cloth) 3 pack Taper DAILY@04 TOP 03/12/17 04:00 03/08/18 03:59 03/12/17 04:00 (Chlorhexidine 2% Cloth) 3 pack UNSCH PRN TOP 03/11/17 13:45 (Steph-Colace) 1 tab BID PO 03/11/17 21:00 03/12/17 08:33 (Milk Of Magnesia Liq) 30 ml Q12H PRN PO 03/11/17 13:45 (Senokot) 17.2 mg Q12H PRN PO 03/11/17 13:45 (Dulcolax Supp) 10 mg DAILY PRN RECTAL 03/11/17 13:45 (Lactulose Liq) 30 ml DAILY PRN PO 03/11/17 13:45 (Aspirin Chew) 81 mg DAILY CHEW 03/12/17 09:00 03/12/17 08:33 (Lanoxin) 0.25 mg HS PO 03/11/17 21:00 03/11/17 21:25 (Aricept) 5 mg HS PO 03/11/17 21:00 03/11/17 21:26 Potassium Chloride 10 meq 10 meq DAILY PO 03/12/17 09:00 03/12/17 08:33 Potassium Chloride 100 ml @ 50 mls/hr Q2H PRN IV 03/11/17 14:30 (KCl 20 Meq Premix Inj) 100 ml @ 50 mls/hr Q2H PRN IV 03/11/17 14:30 Potassium Bicarb/ Potassium Chloride 50 meq 50 meq UNSCH PRN PO 03/11/17 14:30 Potassium Chloride 100 ml @ 25 mls/hr UNSCH PRN IV 03/11/17 14:30 Potassium Chloride 100 ml @ 50 mls/hr Q2H PRN IV 03/11/17 14:30 (Magnesium Sulfate Inj/NS Inj) 100 ml @ 50 mls/hr UNSCH PRN IV 03/11/17 14:30 Magnesium Oxide 800 mg 800 mg UNSCH PRN PO 03/11/17 14:30 (Magnesium Sulfate Inj/NS Inj) 100 ml @ 50 mls/hr UNSCH PRN IV 03/11/17 14:30 Potassium Phosphate 2000 mg 2,000 mg Q4H PRN PO 03/11/17 14:30 (Sodium Phosphate Inj/NS 250 ml Inj) 250 ml @ 42 mls/hr UNSCH PRN IV 03/11/17 14:30 Potassium Phosphate 2000 mg 2,000 mg UNSCH PRN PO/TUBE 03/11/17 14:28 Potassium Phosphate 30 mmol/ Sodium Chloride 260 ml @ 42 mls/hr UNSCH PRN IV 03/11/17 14:28 Cefepime HCl 2000 mg/Sodium Chloride 100 ml @ 200 mls/hr Q8H IV 03/11/17 16:00 03/12/17 08:29 (Heparin-D5W Inj) 250 ml @ 0 mls/hr TITRATE IV 03/11/17 15:00 (Diflucan) 100 mg DAILY PO 03/11/17 17:00 03/12/17 08:33 (Haldol Inj) 2 mg Q6H PRN IV 03/11/17 17:00 Metoprolol Tartrate 25 mg 25 mg Q8H PO 03/12/17 09:00 (DOPamine INJ PREMIX) 500 ml @ 6.075 mls/ hr TITRATE IV 03/12/17 10:45 Terbutaline Sulfate 1 mg 1 mg UNSCH PRN SQ 03/12/17 10:45 (Levophed-Dextrose Drip) 250 ml @ 0 mls/hr TITRATE IV 03/12/17 11:45 03/12/17 16:29 Chlorhexidine Gluconate 15 ml 15 ml BID@08,20 MT 03/12/17 20:00 Midazolam HCl 100 ml @ 0 mls/hr TITRATE IV 03/12/17 14:00 (Primacor Inj/NS Inj) 100 ml @ 6.07 mls/hr [id number] IV 03/12/17 13:59 03/12/17 16:29 Family History Family history of CAD. Daughter denies any cancer or CVAs in the family. . Substance Use Tobacco: Former smoker. Quit over 40 years ago. Alcohol: None reported. Prescription med abuse: None reported. Illicits: None reported. . Psychosocial History Patient is a . Originally from [place], moved to [place] in 1957. Has 2 daughters. . Spiritual/Cultural Factors Buddhist oliva. . (Amy Turk) Living Will: Never completed Health Care Surrogate: Completed, but not made available Durable Power of Digital Printer: Completed, but not made available Health Care Surrogate(s): As per daughter Cata Yin, she is the designated healthcare surrogate. Pending designation of healthcare surrogate/living will. . Documented care wishes: Pending copy of living will. . Family/friends goals: Full code. Daughter electing to continue aggressive management. . Ethical and Legal Issues Patient unable to participate in medical decision-making. Pending copy of living will and designation of healthcare surrogate. Patient has 2 daughters, daughter Cata claims that she is the designated healthcare surrogate. Pending copy of documents. . (Amy Turk) Physical Exam Vital Signs Date Time Temp Pulse Resp B/P Pulse Ox O2 Delivery O2 Flow Rate FiO2 03/12/17 14:00 100 03/12/17 13:00 100 100 03/12/17 12:00 109 03/12/17 12:00 94.0 109 23 106/72 92 03/12/17 10:29 94.3 57 22 71/45 03/12/17 10:00 99 03/12/17 09:40 100 40 03/12/17 08:02 98 Nasal Cannula 3.00 03/12/17 04:00 112 03/12/17 04:00 98.0 115 20 125/86 93 03/12/17 03:00 99 03/12/17 02:00 103 03/12/17 00:01 97.8 97 20 111/62 94 03/12/17 00:00 96 03/12/17 00:00 96 20 91 03/11/17 23:30 94 17 99/57 100 03/11/17 23:00 89 14 92/53 100 03/11/17 22:37 100 Nasal Cannula 3.00 03/11/17 22:30 89 16 94/51 100 03/11/17 22:29 88 14 90/52 100 03/11/17 22:00 91 03/11/17 22:00 91 15 99 03/11/17 21:30 99 24 103/75 76 7/18/17 21:00 94 20 94/55 94 03/11/17 20:30 90 16 86/51 92 03/11/17 20:00 90 03/11/17 20:00 98.0 90 17 83/53 95 03/11/17 18:00 97 03/11/17 17:00 101 27 101/55 95 03/11/17 03/12/17 19:00 07:00 Intake Total 353 ml Output Total 500 ml Balance -147 ml IV Total 353 ml Output Urine Total 500 ml # Bowel Movements 2 Exam CONSTITUTIONAL/GENERAL: This is an elderly, frail female who is orally intubated on mechanical ventilation. TUBES/LINES/DRAINS: PIV's, ETT, central line to left upper chest, SCDs, Abrams catheter, bilateral soft wrist restraints. SKIN: No jaundice, rashes, or lesions. Ecchymoses on upper extremities. No wounds seen anteriorly. Skin temperature appropriate. Not diaphoretic. HEAD: Atraumatic. Normocephalic. EYES: Pupils equal and round and reactive, sluggish. No scleral icterus. No injection or drainage. ENT: Unable to assess hearing secondary to clinical condition. Nose without bleeding or purulent drainage. Moist oral mucosa. NECK: Trachea midline. Supple. CARDIOVASCULAR: regular rate and rhythm, systolic murmur. Very faint peripheral pulses. Mottling of the toes and fingers. RESPIRATORY/CHEST: Symmetric, intubated on mechanical ventilation. Breath sounds diminished bilaterally. GASTROINTESTINAL: Abdomen soft, nondistended. Bowel sounds present. GENITOURINARY: Without palpable bladder distension. Abrams catheter in place. MUSCULOSKELETAL: Mottling of the toes and fingers noted. LYMPHATICS: No palpable cervical or supraclavicular adenopathy. NEUROLOGICAL: Unresponsive to verbal or tactile stimuli. No purposeful movement noted. PSYCHIATRIC: Unable to evaluate secondary to clinical condition. . (Amy Turk) Diagnostic Tests Laboratory Laboratory Tests Test 03/11/17 03/11/17 03/11/17 03/11/17 13:30 13:40 13:45 15:00 Nasal Screen MRSA (PCR) MRSA NOT DETECTED (NOT DETECT) Urine Color YELLOW (YELLW/STRAW) Urine Turbidity CLOUDY (CLEAR) Urine pH 5.5 (5.0-8.5) Urine Specific [place] 1.020 (1.002-1.035) Urine Protein 30 mg/dL (NEG-TRACE) Urine Glucose (UA) NEG mg/dL (NEG) Urine Ketones TRACE mg/dL (NEG) Urine Occult Blood SMALL (NEG) Urine Nitrite NEG (NEG) Urine Bilirubin NEG (NEG) Urine Urobilinogen LESS THAN 2.0 MG/DL (LESS THAN 2.0) Urine Leukocyte Esterase LARGE (NEG) Urine RBC 174 /hpf (0-3) Urine WBC /hpf (0-5) Urine Squamous Epithelial 1 /hpf (0-5) Cells Urine Amorphous Sediment RARE Urine Bacteria MANY /hpf (NONE) Urine Mucus FEW /lpf (OCC) Urine Yeast with Hyphae MANY (NONE) Urine Yeast (Budding) MANY (NONE) Microscopic Urinalysis Comment CATH-CULTURE IND Troponin I 5.97 NG/ML (0.02-0.05) White Blood Count 13.6 TH/MM3 (4.0-11.0) Red Blood Count 3.15 MIL/MM3 (4.00-5.30) Hemoglobin 10.1 GM/DL (11.6-15.3) Hematocrit 30.5 % (35.0-46.0) Mean Corpuscular Volume 97.0 FL (80.0-100.0) Mean Corpuscular Hemoglobin 32.2 PG (27.0-34.0) Mean Corpuscular Hemoglobin 33.2 % Concent (32.0-36.0) Red Cell Distribution Width 15.5 % (11.6-17.2) Platelet Count 387 TH/MM3 (150-450) Mean Platelet Volume 8.9 FL (7.0-11.0) Prothrombin Time 11.8 SEC (9.8-11.6) Prothromb Time International 1.1 RATIO Ratio Activated Partial 68.6 SEC Thromboplast Time (24.3-30.1) Lactic Acid Level 2.7 mmol/L (0.4-2.0) Test 03/11/17 03/12/17 03/12/17 03/12/17 21:29 03:40 12:20 13:37 Activated Partial 59.7 SEC 53.9 SEC Thromboplast Time (24.3-30.1) (24.3-30.1) Phosphorus Level 2.6 MG/DL (2.5-4.9) Magnesium Level 1.6 MG/DL 1.7 MG/DL (1.5-2.5) (1.5-2.5) Troponin I 5.91 NG/ML 5.25 NG/ML (0.02-0.05) (0.02-0.05) White Blood Count 13.8 TH/MM3 21.0 TH/MM3 (4.0-11.0) (4.0-11.0) Red Blood Count 3.11 MIL/MM3 3.27 MIL/MM3 (4.00-5.30) (4.00-5.30) Hemoglobin 9.9 GM/DL 10.1 GM/DL (11.6-15.3) (11.6-15.3) Hematocrit 30.3 % 32.3 % (35.0-46.0) (35.0-46.0) Mean Corpuscular Volume 97.4 FL 98.7 FL (80.0-100.0) (80.0-100.0) Mean Corpuscular Hemoglobin 32.0 PG 30.8 PG (27.0-34.0) (27.0-34.0) Mean Corpuscular Hemoglobin 32.8 % 31.2 % Concent (32.0-36.0) (32.0-36.0) Red Cell Distribution Width 15.4 % 15.7 % (11.6-17.2) (11.6-17.2) Platelet Count 424 TH/MM3 480 TH/MM3 (150-450) (150-450) Mean Platelet Volume 8.8 FL 8.5 FL (7.0-11.0) (7.0-11.0) Neutrophils (%) (Auto) 72.7 % 93.0 % (16.0-70.0) (16.0-70.0) Lymphocytes (%) (Auto) 21.7 % 3.0 % (9.0-44.0) (9.0-44.0) Monocytes (%) (Auto) 4.5 % (0.0-8.0) 3.7 % (0.0-8.0) Eosinophils (%) (Auto) 0.3 % (0.0-4.0) 0.1 % (0.0-4.0) Basophils (%) (Auto) 0.8 % (0.0-2.0) 0.2 % (0.0-2.0) Neutrophils # (Auto) 10.0 TH/MM3 19.5 TH/MM3 (1.8-7.7) (1.8-7.7) Lymphocytes # (Auto) 3.0 TH/MM3 0.6 TH/MM3 (1.0-4.8) (1.0-4.8) Monocytes # (Auto) 0.6 TH/MM3 0.8 TH/MM3 (0-0.9) (0-0.9) Eosinophils # (Auto) 0.0 TH/MM3 0.0 TH/MM3 (0-0.4) (0-0.4) Basophils # (Auto) 0.1 TH/MM3 0.0 TH/MM3 (0-0.2) (0-0.2) CBC Comment DIFF FINAL AUTO DIFF Differential Comment Sodium Level 146 MEQ/L (136-145) Potassium Level 3.1 MEQ/L (3.5-5.1) Chloride Level 112 MEQ/L (98-107) Carbon Dioxide Level 24.2 MEQ/L (21.0-32.0) Anion Gap 10 MEQ/L (5-15) Blood Urea Nitrogen 17 MG/DL (7-18) Creatinine 0.81 MG/DL (0.50-1.00) Estimat Glomerular Filtration 67 ML/MIN (>89) Rate Random Glucose 119 MG/DL (74-106) Calcium Level 8.7 MG/DL (8.5-10.1) Total Bilirubin 0.4 MG/DL (0.2-1.0) Aspartate Amino Transf 84 U/L (15-37) (AST/SGOT) Alanine Aminotransferase 32 U/L (10-53) (ALT/SGPT) Alkaline Phosphatase 63 U/L (45-117) Total Protein 5.9 GM/DL (6.4-8.2) Albumin 2.4 GM/DL (3.4-5.0) Lactic Acid Level 9.8 mmol/L (0.4-2.0) (Amy Turk) Result Diagram: 03/12/17 8087 03/12/17 4763 Microbiology Microbiology Date/Time Procedure Status Source Growth 03/11/17 13:40 Urine Culture - Preliminary Resulted Urine Catheterized Urine Soledad Albicans Gamma Hemolytic Streptococcus 7/19/17 03:40 Aerobic Blood Culture Received Blood Peripheral Pending 03/12/17 03:40 Anaerobic Blood Culture Received Blood Peripheral Pending 03/12/17 05:24 Aerobic Blood Culture Received Blood Peripheral Pending 03/12/17 05:24 Anaerobic Blood Culture Received Blood Peripheral Pending Imaging Last Impressions Head CT 03/12/17 0000 Signed Impressions: Service Date/Time: Sunday, March 12, 2017 13:00 - CONCLUSION: 1. Cerebral atrophy and chronic ischemic small vessel vasculopathy. Evans Augustin MD Chest X-Ray 03/12/17 0000 Signed Impressions: Service Date/Time: Sunday, March 12, 2017 11:30 - CONCLUSION: 1. Endotracheal tube with tip at the orifice of the right mainstem bronchus. This should be retracted at least 2 cm. 2. Bilateral perihilar airspace disease likely edema. Evans Augustin MD Procedures * 03/12/17 -intubation * 03/12/17 -central line placement . (Amy Turk) Patient/Family Conference Present at Family Conference: Daughter Cata Yin. Family Conference Time (mins): 34 Family Conference Location: Telephone Issues Discussed: * Palliative care role, purpose, approach * Additional medical, psychosocial, and spiritual history * Patients general health, functional status, and cognitive changes in the months leading up to the current hospitalization * Family understanding of the current medical problems -cardiogenic/septic shock , non-STEMI, acute encephalopathy, acute respiratory failure, lactic acidosis. * Family understanding of prognosis -poor prognosis for survival. * Patients goals of care as best understood from advance directives and/or conversations and/or values * Current medical treatment options and benefits/burdens of those options * Questions answered to the best of my ability * Palliative care contact information provided * Risks, benefits and limitations of CPR given patient's current clinical condition . (Amy Turk) Assessment and Plan Disease Oriented Problem List: (1) Severe sepsis (2) Lactic acidosis (3) Encephalopathy acute (4) Urinary tract infection (5) NSTEMI (non-ST elevation myocardial infarction) (6) CHF (congestive heart failure) (7) Dementia (8) Atrial fibrillation Symptom Scale: (1) Shortness of breath 0-10 Scale: Unable to quantify Comment: Remains orally intubated on mechanical ventilation. (2) Debility 0-10 Scale: Unable to quantify Comment: Progressive, worsening since December. Pertinent Non-Medical Issues Psychosocial: . Originally from [place]. has 2 daughters. Spiritual: Sikhism oliva. Legal: Daughter reports that advance directives have been completed. Pending copy. Ethical issues impacting care: Patient unable to participate in medical decision -making. Pending copy of living will and designation of healthcare surrogate. Patient has 2 daughters, ruperto Ivy claims that she is the designated healthcare surrogate. Pending copy of documents. . Important Contacts Daughter Cata Yin . . Prognosis Mrs. Franco is a 82-year-old female with a past medical history of dementia originally diagnosed in 2013, recurrent UTIs, urinary retention, hypertension and atrial fibrillation. Patient with recent prolonged hospitalizations since December 2016. Admitted secondary to non-STEMI. Clinical course complicated by septic/cardiogenic shock, acute respiratory failure, lactic acidosis, congestive heart failure. Very poor prognosis for surviving this hospitalization given her multiple chronic comorbidities, recent prolonged acute hospitalizations, acute events, profound physical deconditioning and advanced age. . Code Status: Full Code Plan * CODE STATUS: Daughter electing for patient to remain FULL code. Risks, benefits and limitations of CPR were discussed in great detail with daughter given patient's worsening clinical condition. * HEALTHCARE DECISION-MAKING: Patient unable to participate in medical decision- making secondary to clinical condition, intubated on mechanical ventilation. Pending copy of living will and designation of healthcare surrogate. Patient has 2 daughters, daughter Cata Yin claims that she is the designated healthcare surrogate. Pending copy of documents. * GOALS OF CARE: Daughter electing to continue with aggressive medical management to include FULL code, with the understanding that patient's clinical condition is critical and she is not likely to survive this hospitalization. * Telephone conversation with patient's daughter Cata Yin. Medical update provided. Shared concerns of patient's worsening critical condition to include cardiogenic/septic shock, non-STEMI. Discussed risks, benefits and limitations of CPR given patient's critical condition. Discussed with daughter that patient is not likely to survive this hospitalization given multiple comorbidities, recent prolonged hospitalizations, clinical decline within the past 2 months and acute events. Daughter tells me that patient "will survive this hospitalization as she has done it in the past". Daughter further added "I 'm not going to DNR my mother". Daughter receptive to meeting with palliative care tomorrow 03/13/17 at 3:00 p.m. for further clarifications of goals of care. * SYMPTOMS: = Shortness of breath, remains orally intubated on mechanical ventilation. Patient currently on Versed for sedation. Appears comfortable during my visit. = Debility, progressive and worsened since December 2016. * Case discussed with bedside RN Arturo. * Palliative care contact information has been provided to patient's daughter Cata. * Palliative care will continue to follow-up for further clarifications of goals of care, family meeting scheduled for tomorrow 03/13/17 as indicated above. . (Amy Turk) Time Spent Total Floor Time (mins): 92 (Total time to include review and summarization of available medical records to include prior hospitalizations, physical exam, telephone conversation with patient's daughter to discuss goals of care, case discussion with bedside RN Arturo. ) >50% Counseling/Coord of Care: Yes (Amy Turk) Thank you for the opportunity to participate in the care of Ms. Franco. (Amy Turk) Attestation To help prompt me to consider important information that might be impacting today's encounter and assessment, information from prior notes written by myself or my colleagues may have been "brought forward" into today's note. My signature on this note, however, is an attestation that I personally performed the exam, history, and/or decision-making noted today, and, unless otherwise indicated, the interactions with patient, family, and staff as well as the review of records all occurred today. I also attest that the listed assessment and stated plan reflect my best clinical judgment today based on the combination of historical information, prior notes, and today's exam/ interactions. When time spent is documented, it refers only to time spent today by the signer, or if indicated, combined time spent today by collaborating physician/nurse practitioner. (Amy Turk) Collaborating MD Comments Chart reviewed. Case discussed with palliative care CONTINUOUS MINER. Above CONTINUOUS MINER note reviewed and I concur. . (Edmar Cabrera MD) Amy Turk Mar 12, 2017 17:40 Edmar Cabrera MD May 31, 2017 16:20
[2017-03-12] MEDS ORDERED: PHENYLEPHRINE INJ 160 MG in DEXTROSE 5% IN WATE 500 ML INJ 484 ML IV SCH ×2 (20:30)
[2017-03-12] MEDS: DIGOXIN 0.25 MG TAB PO SCH (21:00)
[2017-03-12] MEDS: DONEPEZIL HCL 5 MG TAB PO SCH (21:00)
[2017-03-12] MEDS: VASOPRESSIN INJ 40 UNITS in DEXTROSE 5% IN WATER 100ML INJ 98 ML IV SCH ×2 (21:18)
[2017-03-12] MEDS: CHLORHEXIDINE 0.12% (ORAL KIT) 15 ML CUP MT SCH (21:19)
[2017-03-13] VITALS (21 sets, daily range): BP systolic 91–130; BP diastolic 53–70; PULSE 81–126; RESP 14–20; TEMP 97–100; O2SAT 93–100
[2017-03-13] MEDS: METOPROLOL TARTRATE 25 MG TAB PO SCH (00:19)
[2017-03-13] MEDS: CEFEPIME INJ 2,000 MG in SODIUM CHLORIDE 0.9% INJ 100 ML IV SCH ×2 (00:19→08:41)
[2017-03-13] MEDS: CHLORHEXIDINE GLUCONATE 2 % 1 PACK (2 CLOTHS) TOP SCH (02:37)
[2017-03-13] MEDS: MIDAZOLAM 100 MG/100 ML INJ 100 ML IV SCH ×2 (02:37→17:38)
[2017-03-13 04:22] LABS: AUTOMATED NEUTROPHIL # 15.5 TH/MM3 (1.8-7.7); BASOPHIL % 0.2 % (0.0-2.0); HEMATOCRIT 27.7 % (35.0-46.0); HEMO FLAGS DIFF FINAL; LYMPH % 8.9 % (9.0-44.0); LYMPHOCYTE # 1.6 TH/MM3 (1.0-4.8); MEAN CELL VOLUME 95.6 FL (80.0-100.0); MEAN CORPUSCULAR HEMOGLOBIN 31.9 PG (27.0-34.0); MEAN CORPUSCULAR HGB CONC 33.3 % (32.0-36.0); MONO % 6.9 % (0.0-8.0); PLATELET COUNT 408 TH/MM3 (150-450); RED CELL DISTRIBUTION WIDTH 15.3 % (11.6-17.2); WHITE BLOOD COUNT 18.5 TH/MM3 (4.0-11.0)
[2017-03-13 04:43] LABS: ANION GAP 11 MEQ/L (5-15); AST (GOT) 159 U/L (15-37); BICARBONATE 21.6 MEQ/L (21.0-32.0); BLOOD UREA NITROGEN 27 MG/DL (7-18); CHLORIDE 110 MEQ/L (98-107); GLOMERULAR FILTRATION RATE 53 ML/MIN (>89); MAGNESIUM 1.4 MG/DL (1.5-2.5); POTASSIUM 3.2 MEQ/L (3.5-5.1); SODIUM (NA) 143 MEQ/L (136-145)
[2017-03-13] MEDS: POTASSIUM CHLOR 40 MEQ PREMIX 100 ML IV PRN ×2 (04:51→05:56)
--- NOTE | 2017-03-13 05:14 | RADRPT ---
EXAM DATE/TIME: 03/13/2017 03:33 [place] COMPARISON: CHEST SINGLE AP, March 12, 2017, 11:30. INDICATIONS : Respiratory disease. MEDICAL HISTORY : Hypertension. SURGICAL HISTORY : None. ENCOUNTER: Subsequent ACUITY: 1 week PAIN SCORE: Non-responsive. LOCATION: Bilateral chest FINDINGS: The support devices remain in place. There is no pneumothorax. There is improving aeration of the tito g mariee compared to the prior study. There is a mild residual interstitial infiltrates bilaterally i n the lower lungs. The heart size is stable. No definite pleural effusions. CONCLUSION: Improving aeration of the lung mariee compared to the prior study. Colten Dia MD on March 13, 2017 at 5:12 Board Certified Radiologist. This report was verified electronically.
[2017-03-13] MEDS: PHENYLEPHRINE INJ 160 MG in DEXTROSE 5% IN WATE 500 ML INJ 484 ML IV SCH ×6 (05:56→19:10)
[2017-03-13] MEDS: MILRINONE INJ 20 MG in SODIUM CHLORIDE 0.9% INJ 80 ML IV SCH ×2 (05:56→21:41)
[2017-03-13 06:09] LABS: ALKALINE PHOSPHATASE 57 U/L (45-117); ALT (GPT) 90 U/L (10-53); TOTAL BILIRUBIN ADULT 0.4 MG/DL (0.2-1.0)
--- NOTE | 2017-03-13 07:25 | PD.CARD.PN ---
Subjective Subjective Remarks vent Objective Medications Current Medications Medications (Trade) Dose Ordered Sig/Arlet Route Start Time Stop Time Status Last Admin (Protonix Inj) 40 mg DAILY IV 03/12/17 09:00 03/12/17 08:33 Miscellaneous Information 1 [id number] XX 03/11/17 13:45 03/12/17 23:07 (Chlorhexidine 2% Cloth) 3 pack Taper DAILY@04 TOP 03/12/17 04:00 03/08/18 03:59 03/13/17 02:37 (Chlorhexidine 2% Cloth) 3 pack UNSCH PRN TOP 03/11/17 13:45 (Steph-Colace) 1 tab BID PO 03/11/17 21:00 03/12/17 08:33 (Milk Of Magnesia Liq) 30 ml Q12H PRN PO 03/11/17 13:45 (Senokot) 17.2 mg Q12H PRN PO 03/11/17 13:45 (Dulcolax Supp) 10 mg DAILY PRN RECTAL 03/11/17 13:45 (Lactulose Liq) 30 ml DAILY PRN PO 03/11/17 13:45 (Aspirin Chew) 81 mg DAILY CHEW 03/12/17 09:00 03/12/17 08:33 (Lanoxin) 0.25 mg HS PO 03/11/17 21:00 03/11/17 21:25 (Aricept) 5 mg HS PO 03/11/17 21:00 03/11/17 21:26 Potassium Chloride 10 meq 10 meq DAILY PO 03/12/17 09:00 03/12/17 08:33 Potassium Chloride 100 ml @ 50 mls/hr Q2H PRN IV 03/11/17 14:30 03/13/17 05:56 (KCl 20 Meq Premix Inj) 100 ml @ 50 mls/hr Q2H PRN IV 03/11/17 14:30 Potassium Bicarb/ Potassium Chloride 50 meq 50 meq UNSCH PRN PO 03/11/17 14:30 Potassium Chloride 100 ml @ 25 mls/hr UNSCH PRN IV 03/11/17 14:30 Potassium Chloride 100 ml @ 50 mls/hr Q2H PRN IV 03/11/17 14:30 (Magnesium Sulfate Inj/NS Inj) 100 ml @ 50 mls/hr UNSCH PRN IV 03/11/17 14:30 Magnesium Oxide 800 mg 800 mg UNSCH PRN PO 03/11/17 14:30 (Magnesium Sulfate Inj/NS Inj) 100 ml @ 50 mls/hr UNSCH PRN IV 03/11/17 14:30 Potassium Phosphate 2000 mg 2,000 mg Q4H PRN PO 03/11/17 14:30 (Sodium Phosphate Inj/NS 250 ml Inj) 250 ml @ 42 mls/hr UNSCH PRN IV 03/11/17 14:30 Potassium Phosphate 2000 mg 2,000 mg UNSCH PRN PO/TUBE 03/11/17 14:28 Potassium Phosphate 30 mmol/ Sodium Chloride 260 ml @ 42 mls/hr UNSCH PRN IV 03/11/17 14:28 Cefepime HCl 2000 mg/Sodium Chloride 100 ml @ 200 mls/hr Q8H IV 03/11/17 16:00 03/13/17 00:19 (Heparin-D5W Inj) 250 ml @ 0 mls/hr TITRATE IV 03/11/17 15:00 (Diflucan) 100 mg DAILY PO 03/11/17 17:00 03/12/17 08:33 (Haldol Inj) 2 mg Q6H PRN IV 03/11/17 17:00 Metoprolol Tartrate 25 mg 25 mg Q8H PO 03/12/17 09:00 (DOPamine INJ PREMIX) 500 ml @ 6.075 mls/ hr TITRATE IV 03/12/17 10:45 Terbutaline Sulfate 1 mg 1 mg UNSCH PRN SQ 03/12/17 10:45 (Levophed-Dextrose Drip) 250 ml @ 0 mls/hr TITRATE IV 03/12/17 11:45 03/12/17 19:29 Chlorhexidine Gluconate 15 ml 15 ml BID@08,20 MT 03/12/17 20:00 03/12/17 21:19 Midazolam HCl 100 ml @ 0 mls/hr TITRATE IV 03/12/17 14:00 03/13/17 02:37 Milrinone Lactate 20 mg/Sodium Chloride 100 ml @ 6.07 mls/hr [id number] IV 03/12/17 13:59 03/13/17 05:56 Vasopressin 40 units/Dextrose 100 ml @ 4.5 mls/hr [id number] IV 03/12/17 20:27 03/12/17 21:18 (Neosynephrine Inj/D5W 500 ml Inj) 500 ml @ 0 mls/hr TITRATE IV 03/13/17 03:30 03/13/17 05:56 Vital Signs / I&O Vital Signs Date Time Temp Pulse Resp B/P Pulse Ox O2 Delivery O2 Flow Rate FiO2 03/13/17 06:00 96 03/13/17 04:13 99 40 03/13/17 04:00 106 03/13/17 04:00 99.4 106 14 117/59 120/61 03/13/17 04:00 40 03/13/17 03:00 97 03/13/17 02:00 104 14 101/56 100 111/56 03/13/17 02:00 104 03/13/17 01:00 104 03/13/17 00:53 99 40 03/13/17 00:00 99.8 112 14 121/70 100 105/62 03/13/17 00:00 112 03/13/17 00:00 40 03/12/17 22:38 100 40 03/12/17 22:00 111 03/12/17 21:00 145 27 94/53 100 70/49 03/12/17 20:00 100.3 144 29 114/59 99 74/68 03/12/17 20:00 40 03/12/17 20:00 144 03/12/17 18:00 105 03/12/17 16:00 116 03/12/17 16:00 40 03/12/17 16:00 96.0 116 18 132/73 98 03/12/17 14:00 100 03/12/17 13:00 100 100 03/12/17 12:00 109 03/12/17 12:00 94.0 109 23 106/72 92 03/12/17 12:00 40 03/12/17 10:40 40 03/12/17 10:29 94.3 57 22 71/45 03/12/17 10:00 99 03/12/17 09:40 100 40 03/12/17 08:02 98 Nasal Cannula 3.00 I/O 03/12/17 03/12/17 03/12/17 03/13/17 03/13/17 03/13/17 06:59 14:59 22:59 06:59 14:59 22:59 Intake Total 243 ml 1455 ml 791 ml 582 ml Output Total 250 ml 125 ml 100 ml 75 ml Balance -7 ml 1330 ml 691 ml 507 ml IV Total 243 ml 1455 ml 791 ml 582 ml Output Urine Total 250 ml 125 ml 100 ml 75 ml # Bowel Movements 2 0 0 0 Physical Exam GENERAL: Well developed, well nourished. No acute distress. HEENT: Jugular venous pressure is normal. CHEST: Lungs CTA to auscultation bilaterally. Unlabored respiratory effort. CARDIAC: irregular rate and tachy rhythm without S3, S4, or murmur. ABDOMEN: Soft, nontender, EXTREMITIES: No clubbing, + cyanosis, no edema. Laboratory Laboratory Tests Test 03/12/17 03/12/17 03/12/17 03/13/17 12:20 13:37 17:10 04:00 Lactic Acid Level 9.8 mmol/L Troponin I 5.25 NG/ML White Blood Count 21.0 TH/MM3 18.5 TH/MM3 Red Blood Count 3.27 MIL/MM3 2.90 MIL/MM3 Hemoglobin 10.1 GM/DL 9.2 GM/DL Hematocrit 32.3 % 27.7 % Mean Corpuscular Volume 98.7 FL 95.6 FL Mean Corpuscular Hemoglobin 30.8 PG 31.9 PG Mean Corpuscular Hemoglobin 31.2 % 33.3 % Concent Red Cell Distribution Width 15.7 % 15.3 % Platelet Count 480 TH/MM3 408 TH/MM3 Mean Platelet Volume 8.5 FL 8.0 FL Neutrophils (%) (Auto) 93.0 % 84.0 % Lymphocytes (%) (Auto) 3.0 % 8.9 % Monocytes (%) (Auto) 3.7 % 6.9 % Eosinophils (%) (Auto) 0.1 % 0.0 % Basophils (%) (Auto) 0.2 % 0.2 % Neutrophils # (Auto) 19.5 TH/MM3 15.5 TH/MM3 Lymphocytes # (Auto) 0.6 TH/MM3 1.6 TH/MM3 Monocytes # (Auto) 0.8 TH/MM3 1.3 TH/MM3 Eosinophils # (Auto) 0.0 TH/MM3 0.0 TH/MM3 Basophils # (Auto) 0.0 TH/MM3 0.0 TH/MM3 CBC Comment AUTO DIFF DIFF FINAL Differential Comment Blood Gas Puncture Site ART LINE Blood Gas Patient Temperature 98.6 Blood Gas HCO3 19 mmol/L Blood Gas Base Excess -6.1 mmol/L Blood Gas Oxygen Saturation 95 % Arterial Blood pH 7.34 Arterial Blood Partial 35 mmHg Pressure CO2 Arterial Blood Partial 95 mmHg Pressure O2 Arterial Blood Oxygen Content 13.3 Vol % Arterial Blood 1.5 % Carboxyhemoglobin Arterial Blood Methemoglobin 1.2 % Blood Gas Hemoglobin 9.9 G/DL Oxygen Delivery Device VENTILATOR Blood Gas Ventilator Setting 500/14/5PEEP Blood Gas Inspired Oxygen 40 % Sodium Level 143 MEQ/L Potassium Level 3.2 MEQ/L Chloride Level 110 MEQ/L Carbon Dioxide Level 21.6 MEQ/L Anion Gap 11 MEQ/L Blood Urea Nitrogen 27 MG/DL Creatinine 0.99 MG/DL Estimat Glomerular Filtration 53 ML/MIN Rate Random Glucose 170 MG/DL Calcium Level 8.7 MG/DL Magnesium Level 1.4 MG/DL Total Bilirubin 0.4 MG/DL Aspartate Amino Transf 159 U/L (AST/SGOT) Alanine Aminotransferase 90 U/L (ALT/SGPT) Alkaline Phosphatase 57 U/L Total Protein 5.2 GM/DL Albumin 2.1 GM/DL Assessment and Plan Assessment and Plan AF- fair rate control -add amio as the metoprolol will be d/c'd secondary to hypotension NSTEMI- EF 25%, -continue conservative measures -BB and BUBBA relatively contraindicated with hypotension -poor/not revasc candidate secondary to co morbid conditions Cardiomyopathy- as above, on milrinone resp -oxygen placed back on, tx per [facility] Anemia UTI sepsis- [facility] Prognosis is poor with multisystem failure (>50%) Xiao Keys MD Mar 13, 2017 07:25
[2017-03-13] MEDS: CHLORHEXIDINE 0.12% (ORAL KIT) 15 ML CUP MT SCH ×2 (08:41→19:49)
[2017-03-13] MEDS: DOCUSATE SODIUM 50 MG/SENNA 8.6 MG TAB PO SCH ×2 (08:41→20:15)
[2017-03-13] MEDS: FLUCONAZOLE 100 MG TAB PO SCH (08:42)
[2017-03-13] MEDS: AMIODARONE 200 MG TAB OG-TUBE SCH ×2 (08:42→20:15)
[2017-03-13] MEDS: POTASSIUM CHLORIDE 10 MEQ CAP PO SCH (08:42)
[2017-03-13] MEDS: ASPIRIN 81 MG CHEW TAB CHEW SCH (08:42)
[2017-03-13] MEDS: PANTOPRAZOLE SODIUM 40 MG VIAL IV SCH (08:42)
--- NOTE | 2017-03-13 10:19 | HHI.HCPN ---
Informed Ms. Franco was recently a patient at [facility] #[phone]. Left message with medical records at [facility] to obtain copies of advanced directives should they have any on file for patient. Melissa Addison [employer]ER OPERATOR, [employer] Mar 13, 2017 10:19
--- NOTE | 2017-03-13 14:00 | HHI.HCPN ---
Reason for visit a. To assist with evaluation and management of symptoms including: Shortness of breath and debility. b. To assist medical decision maker(s) with: better understanding of current medical conditions; weighing benefits/burdens of medical treatment options; making medical treatment decisions. . (Amy Turk) Subjective/Interval History Mrs. Franco is a 82-year-old female with a past medical history of dementia originally diagnosed in 2013, recurrent UTIs, urinary retention, hypertension and atrial fibrillation. Patient presented to ED on 03/11/17 via EMS for evaluation of chest pain. Laboratory workup indicating troponin 4.43 and BNP 1330. EKG revealing sinus tachycardia. Patient was transfer to [facility] for further management of non-STEMI. [place] [facility] [place] admitted to medical ICU secondary to sepsis. Patient was on distress, tachypnea , tachycardic. She was seen by Dr. Keys in the ICU, not a candidate for any invasive procedures. Medical management recommended. Echocardiogram showing EF of 20% which is a significant decrease from the echo on 03/04/17 showing EF of 45%. In addition, moderate to severe mitral valve regurgitation. Clinical course complicated by severe cardiac shock, intubation and mechanical ventilation in addition to vasopressors. Palliative care has been consulted for further clarifications of goals of care given patient's worsening clinical condition and poor prognosis. Patient seen in ICU. She remained orally intubated on mechanical ventilation. Unresponsive to verbal or tactile stimuli, sedated with Versed. A febrile, oxygen saturation in the high 90s with 40% FiO2. Currently on 3 vasopressors to include dopamine, vasopressin and Neftali-Synephrine. Chest x-ray today showing improving aeration of the lungs compared to yesterday. Laboratory today showing WBC 18.5, Hgb 9.2, platelet count 408. Elevated ALTs, ACT 159, ALT 90, alkaline phosphatase 57. Albumin 2.1. . Family/friend interactions Met with patient's daughter Cata Yin at bedside. Medical update provided. Discussed patient's worsening critical condition to include cardiogenic shock requiring multiple vasopressors, acute respiratory failure requiring intubation and mechanical ventilation, UTI sepsis, non-STEMI, bilateral pleural effusions secondary to CHF, lactic acidosis, ischemic cardiomyopathy with EF of 20%, multiple chronic comorbidities and profound physical deconditioning. Discussed with daughter that patient is not likely to survive this hospitalization given the above. Daughter reports that she is waiting on a miracle, is very hopeful that patient will survive and she has done it before -most recently in December 2016 secondary to GI bleed. Discussed with daughter that this time may be different given her progressive decline with recent multiple hospitalizations, acuity of illness and profound physical deconditioning. Daughter patient to allow a few more days to evaluate patient's clinical condition, goals of care remains unchanged. Continue aggressive management to include full code at this time. Risks and limitations of CPR were discussed with daughter in great detail given patient's worsening clinical condition. All questions were answered in great detail. . (Amy Turk) Advance Directives Living Will: Never completed Health Care Surrogate: Completed, but not made available Durable Power of Foundry Metallurgist: Completed, but not made available (Amy Turk) Advance Directive Specifics Health Care Surrogate(s): As per daughter Caat Yin, she is the designated healthcare surrogate. Pending designation of healthcare surrogate/living will. . Documented care wishes: Pending copy of living will. . Significant change in goals: Full code. Goals of care remain unchanged. . (Amy Turk) Objective Vital Signs Date Time Temp Pulse Resp B/P Pulse Ox O2 Delivery O2 Flow Rate FiO2 03/13/17 13:04 100 40 03/13/17 10:05 100 40 03/13/17 08:00 96 03/13/17 08:00 40 03/13/17 07:36 93 40 03/13/17 06:00 96 03/13/17 04:13 99 40 03/13/17 04:00 106 03/13/17 04:00 99.4 106 14 117/59 120/61 03/13/17 04:00 40 03/13/17 03:00 97 03/13/17 02:00 104 14 101/56 100 111/56 03/13/17 02:00 104 03/13/17 01:00 104 03/13/17 00:53 99 40 03/13/17 00:00 99.8 112 14 121/70 100 105/62 03/13/17 00:00 112 03/13/17 00:00 40 03/12/17 22:38 100 40 03/12/17 22:00 111 03/12/17 21:00 145 27 94/53 100 70/49 03/12/17 20:00 100.3 144 29 114/59 99 74/68 03/12/17 20:00 40 03/12/17 20:00 144 03/12/17 18:00 105 03/12/17 16:00 116 03/12/17 16:00 40 03/12/17 16:00 96.0 116 18 132/73 98 03/12/17 14:00 100 Intake & Output 03/13/17 03/13/17 07:00 19:00 Intake Total 1373 ml Output Total 175 ml Balance 1198 ml IV Total 1373 ml Output Urine Total 175 ml # Bowel Movements 0 Physical Exam CONSTITUTIONAL/GENERAL: This is an elderly, frail female who is orally intubated on mechanical ventilation. TUBES/LINES/DRAINS: PIV's, ETT, central line to left upper chest, SCDs, Abrams catheter, bilateral soft wrist restraints. SKIN: No jaundice, rashes, or lesions. Ecchymoses on upper extremities. No wounds seen anteriorly. Skin temperature appropriate. Not diaphoretic. HEAD: Atraumatic. Normocephalic. EYES: Pupils equal and round and reactive, sluggish. No scleral icterus. No injection or drainage. ENT: Unable to assess hearing secondary to clinical condition. Nose without bleeding or purulent drainage. Moist oral mucosa. NECK: Trachea midline. Supple. CARDIOVASCULAR: regular rate and rhythm, systolic murmur. Very faint peripheral pulses. Mottling of the toes and fingers. RESPIRATORY/CHEST: Symmetric, intubated on mechanical ventilation. Breath sounds diminished bilaterally. GASTROINTESTINAL: Abdomen soft, nondistended. Bowel sounds present. GENITOURINARY: Without palpable bladder distension. Abrams catheter in place. MUSCULOSKELETAL: Mottling of the toes and fingers noted. LYMPHATICS: No palpable cervical or supraclavicular adenopathy. NEUROLOGICAL: Unresponsive to verbal or tactile stimuli. No purposeful movement noted. PSYCHIATRIC: Unable to evaluate secondary to clinical condition. . (Amy Turk) Diagnostic Tests Laboratory Laboratory Tests Test 03/11/17 03/11/17 03/11/17 03/11/17 13:30 13:40 13:45 15:00 Nasal Screen MRSA (PCR) MRSA NOT DETECTED (NOT DETECT) Urine Color YELLOW (YELLW/STRAW) Urine Turbidity CLOUDY (CLEAR) Urine pH 5.5 (5.0-8.5) Urine Specific Owen 1.020 (1.002-1.035) Urine Protein 30 mg/dL (NEG-TRACE) Urine Glucose (UA) NEG mg/dL (NEG) Urine Ketones TRACE mg/dL (NEG) Urine Occult Blood SMALL (NEG) Urine Nitrite NEG (NEG) Urine Bilirubin NEG (NEG) Urine Urobilinogen LESS THAN 2.0 MG/DL (LESS THAN 2.0) Urine Leukocyte Esterase LARGE (NEG) Urine RBC 174 /hpf (0-3) Urine WBC /hpf (0-5) Urine Squamous Epithelial 1 /hpf (0-5) Cells Urine Amorphous Sediment RARE Urine Bacteria MANY /hpf (NONE) Urine Mucus FEW /lpf (OCC) Urine Yeast with Hyphae MANY (NONE) Urine Yeast (Budding) MANY (NONE) Microscopic Urinalysis Comment CATH-CULTURE IND Troponin I 5.97 NG/ML (0.02-0.05) White Blood Count 13.6 TH/MM3 (4.0-11.0) Red Blood Count 3.15 MIL/MM3 (4.00-5.30) Hemoglobin 10.1 GM/DL (11.6-15.3) Hematocrit 30.5 % (35.0-46.0) Mean Corpuscular Volume 97.0 FL (80.0-100.0) Mean Corpuscular Hemoglobin 32.2 PG (27.0-34.0) Mean Corpuscular Hemoglobin 33.2 % Concent (32.0-36.0) Red Cell Distribution Width 15.5 % (11.6-17.2) Platelet Count 387 TH/MM3 (150-450) Mean Platelet Volume 8.9 FL (7.0-11.0) Prothrombin Time 11.8 SEC (9.8-11.6) Prothromb Time International 1.1 RATIO Ratio Activated Partial 68.6 SEC Thromboplast Time (24.3-30.1) Lactic Acid Level 2.7 mmol/L (0.4-2.0) Test 03/11/17 03/12/17 03/12/17 03/12/17 21:29 03:40 12:20 13:37 Activated Partial 59.7 SEC 53.9 SEC Thromboplast Time (24.3-30.1) (24.3-30.1) Phosphorus Level 2.6 MG/DL (2.5-4.9) Magnesium Level 1.6 MG/DL 1.7 MG/DL (1.5-2.5) (1.5-2.5) Troponin I 5.91 NG/ML 5.25 NG/ML (0.02-0.05) (0.02-0.05) White Blood Count 13.8 TH/MM3 21.0 TH/MM3 (4.0-11.0) (4.0-11.0) Red Blood Count 3.11 MIL/MM3 3.27 MIL/MM3 (4.00-5.30) (4.00-5.30) Hemoglobin 9.9 GM/DL 10.1 GM/DL (11.6-15.3) (11.6-15.3) Hematocrit 30.3 % 32.3 % (35.0-46.0) (35.0-46.0) Mean Corpuscular Volume 97.4 FL 98.7 FL (80.0-100.0) (80.0-100.0) Mean Corpuscular Hemoglobin 32.0 PG 30.8 PG (27.0-34.0) (27.0-34.0) Mean Corpuscular Hemoglobin 32.8 % 31.2 % Concent (32.0-36.0) (32.0-36.0) Red Cell Distribution Width 15.4 % 15.7 % (11.6-17.2) (11.6-17.2) Platelet Count 424 TH/MM3 480 TH/MM3 (150-450) (150-450) Mean Platelet Volume 8.8 FL 8.5 FL (7.0-11.0) (7.0-11.0) Neutrophils (%) (Auto) 72.7 % 93.0 % (16.0-70.0) (16.0-70.0) Lymphocytes (%) (Auto) 21.7 % 3.0 % (9.0-44.0) (9.0-44.0) Monocytes (%) (Auto) 4.5 % (0.0-8.0) 3.7 % (0.0-8.0) Eosinophils (%) (Auto) 0.3 % (0.0-4.0) 0.1 % (0.0-4.0) Basophils (%) (Auto) 0.8 % (0.0-2.0) 0.2 % (0.0-2.0) Neutrophils # (Auto) 10.0 TH/MM3 19.5 TH/MM3 (1.8-7.7) (1.8-7.7) Lymphocytes # (Auto) 3.0 TH/MM3 0.6 TH/MM3 (1.0-4.8) (1.0-4.8) Monocytes # (Auto) 0.6 TH/MM3 0.8 TH/MM3 (0-0.9) (0-0.9) Eosinophils # (Auto) 0.0 TH/MM3 0.0 TH/MM3 (0-0.4) (0-0.4) Basophils # (Auto) 0.1 TH/MM3 0.0 TH/MM3 (0-0.2) (0-0.2) CBC Comment DIFF FINAL AUTO DIFF Differential Comment Sodium Level 146 MEQ/L (136-145) Potassium Level 3.1 MEQ/L (3.5-5.1) Chloride Level 112 MEQ/L (98-107) Carbon Dioxide Level 24.2 MEQ/L (21.0-32.0) Anion Gap 10 MEQ/L (5-15) Blood Urea Nitrogen 17 MG/DL (7-18) Creatinine 0.81 MG/DL (0.50-1.00) Estimat Glomerular Filtration 67 ML/MIN (>89) Rate Random Glucose 119 MG/DL (74-106) Calcium Level 8.7 MG/DL (8.5-10.1) Total Bilirubin 0.4 MG/DL (0.2-1.0) Aspartate Amino Transf 84 U/L (15-37) (AST/SGOT) Alanine Aminotransferase 32 U/L (10-53) (ALT/SGPT) Alkaline Phosphatase 63 U/L (45-117) Total Protein 5.9 GM/DL (6.4-8.2) Albumin 2.4 GM/DL (3.4-5.0) Lactic Acid Level 9.8 mmol/L (0.4-2.0) Test 03/12/17 03/13/17 17:10 04:00 Blood Gas Puncture Site ART LINE Blood Gas Patient Temperature 98.6 Blood Gas HCO3 19 mmol/L (22-26) Blood Gas Base Excess -6.1 mmol/L (-2-2) Blood Gas Oxygen Saturation 95 % (90-100) Arterial Blood pH 7.34 (7.380-7.420) Arterial Blood Partial 35 mmHg (38-42) Pressure CO2 Arterial Blood Partial 95 mmHg Pressure O2 (61-120) Arterial Blood Oxygen Content 13.3 Vol % (12.0-20.0) Arterial Blood 1.5 % (0-4) Carboxyhemoglobin Arterial Blood Methemoglobin 1.2 % (0-2) Blood Gas Hemoglobin 9.9 G/DL (12.0-16.0) Oxygen Delivery Device VENTILATOR Blood Gas Ventilator Setting 500/14/5PEEP Blood Gas Inspired Oxygen 40 % White Blood Count 18.5 TH/MM3 (4.0-11.0) Red Blood Count 2.90 MIL/MM3 (4.00-5.30) Hemoglobin 9.2 GM/DL (11.6-15.3) Hematocrit 27.7 % (35.0-46.0) Mean Corpuscular Volume 95.6 FL (80.0-100.0) Mean Corpuscular Hemoglobin 31.9 PG (27.0-34.0) Mean Corpuscular Hemoglobin 33.3 % Concent (32.0-36.0) Red Cell Distribution Width 15.3 % (11.6-17.2) Platelet Count 408 TH/MM3 (150-450) Mean Platelet Volume 8.0 FL (7.0-11.0) Neutrophils (%) (Auto) 84.0 % (16.0-70.0) Lymphocytes (%) (Auto) 8.9 % (9.0-44.0) Monocytes (%) (Auto) 6.9 % (0.0-8.0) Eosinophils (%) (Auto) 0.0 % (0.0-4.0) Basophils (%) (Auto) 0.2 % (0.0-2.0) Neutrophils # (Auto) 15.5 TH/MM3 (1.8-7.7) Lymphocytes # (Auto) 1.6 TH/MM3 (1.0-4.8) Monocytes # (Auto) 1.3 TH/MM3 (0-0.9) Eosinophils # (Auto) 0.0 TH/MM3 (0-0.4) Basophils # (Auto) 0.0 TH/MM3 (0-0.2) CBC Comment DIFF FINAL Differential Comment Sodium Level 143 MEQ/L (136-145) Potassium Level 3.2 MEQ/L (3.5-5.1) Chloride Level 110 MEQ/L (98-107) Carbon Dioxide Level 21.6 MEQ/L (21.0-32.0) Anion Gap 11 MEQ/L (5-15) Blood Urea Nitrogen 27 MG/DL (7-18) Creatinine 0.99 MG/DL (0.50-1.00) Estimat Glomerular Filtration 53 ML/MIN (>89) Rate Random Glucose 170 MG/DL (74-106) Calcium Level 8.7 MG/DL (8.5-10.1) Magnesium Level 1.4 MG/DL (1.5-2.5) Total Bilirubin 0.4 MG/DL (0.2-1.0) Aspartate Amino Transf 159 U/L (15-37) (AST/SGOT) Alanine Aminotransferase 90 U/L (10-53) (ALT/SGPT) Alkaline Phosphatase 57 U/L (45-117) Total Protein 5.2 GM/DL (6.4-8.2) Albumin 2.1 GM/DL (3.4-5.0) (Amy Turk) Result Diagram: 03/13/17 0400 03/13/17 0400 Microbiology Microbiology Date/Time Procedure Status Source Growth 03/11/17 13:40 Urine Culture - Preliminary Resulted Urine Catheterized Urine Soledad Albicans Group D Enterococcus 03/12/17 03:40 Aerobic Blood Culture - Preliminary Resulted Blood Peripheral NO GROWTH IN 1 DAY 03/12/17 03:40 Anaerobic Blood Culture - Preliminary Resulted Blood Peripheral NO GROWTH IN 1 DAY 03/12/17 05:24 Aerobic Blood Culture - Preliminary Resulted Blood Peripheral NO GROWTH IN 1 DAY 03/12/17 05:24 Anaerobic Blood Culture - Preliminary Resulted Blood Peripheral NO GROWTH IN 1 DAY Imaging Last 24 hours Impressions Chest X-Ray 03/13/17 0600 Signed Impressions: Service Date/Time: February 03:33 - CONCLUSION: Improving aeration of the lung mariee compared to the prior study. Colten Dia MD Procedures * 03/12/17 -intubation * 03/12/17 -central line placement . (Amy Turk) Assessment and Plan Disease Oriented Problem List: (1) Severe sepsis (2) Lactic acidosis (3) Encephalopathy acute (4) Urinary tract infection (5) NSTEMI (non-ST elevation myocardial infarction) (6) CHF (congestive heart failure) (7) Dementia (8) Atrial fibrillation Symptom Scale: (1) Shortness of breath 0-10 Scale: Unable to quantify Comment: Remains orally intubated on mechanical ventilation. (2) Debility 0-10 Scale: Unable to quantify Comment: Progressive, worsening since December. Pertinent Non-Medical Issues Psychosocial: . Originally from [place]. has 2 daughters. Spiritual: Voodoo oliva. Legal: Daughter reports that advance directives have been completed. Pending copy. Ethical issues impacting care: Patient unable to participate in medical decision -making. Pending copy of living will and designation of healthcare surrogate. Patient has 2 daughters, daughter Cata claims that she is the designated healthcare surrogate. Pending copy of documents. . Important Contacts Daughter Cata Yin & Family friend Kristen Jolly [phone]. . Prognosis Mrs. Franco is a 82-year-old female with a past medical history of dementia originally diagnosed in 2013, recurrent UTIs, urinary retention, hypertension and atrial fibrillation. Patient with recent prolonged hospitalizations since December 2016. Admitted secondary to non-STEMI. Clinical course complicated by septic/cardiogenic shock, acute respiratory failure, lactic acidosis, congestive heart failure. Very poor prognosis for surviving this hospitalization given her multiple chronic comorbidities, recent prolonged acute hospitalizations, acute events, profound physical deconditioning and advanced age. . Code Status: Full Code Plan * CODE STATUS: Daughter electing for patient to remain FULL code. Risks and limitations of CPR were discussed in great detail with daughter given patient's worsening clinical condition. * HEALTHCARE DECISION-MAKING: Patient unable to participate in medical decision- making secondary to clinical condition, intubated on mechanical ventilation. Pending copy of living will and designation of healthcare surrogate. This has been requested to José Miguel Cook. Patient has 2 daughters, daughter Cata Yin claims to be the designated healthcare surrogate. Pending copy of advance directives * GOALS OF CARE: Daughter electing to continue with aggressive medical management to include FULL code, with the understanding that patient's clinical condition is critical and patient is not likely to survive this hospitalization. * 03/13/17 -Met with patient's daughter Cata Yin at bedside. Medical update provided. Discussed patient's worsening critical condition to include cardiogenic shock requiring multiple vasopressors, acute respiratory failure requiring intubation and mechanical ventilation, UTI sepsis, non-STEMI, bilateral pleural effusions secondary to CHF, lactic acidosis, ischemic cardiomyopathy with EF of 20%, multiple chronic comorbidities and profound physical deconditioning. Discussed with daughter that patient is not likely to survive this hospitalization given the above. Daughter reports that she is waiting for a miracle, is very hopeful that patient will survive as she has done it before -most recently in December 2016 secondary to GI bleed. Discussed with daughter that this time is different given her progressive decline with recent multiple hospitalizations, acuity of illness and profound physical deconditioning. Daughter wishing to allow a few more days to evaluate patient' s clinical condition, goals of care remains unchanged. Continue aggressive management to include full code at this time. * SYMPTOMS: = Shortness of breath, remains orally intubated on mechanical ventilation. Patient currently on Versed for sedation. Appears comfortable during my visit. = Debility, progressive and worsened since December 2016. * Case discussed with bedside RN Lola. * Palliative care contact information has been provided to patient's daughter Cata. * Palliative care will continue to follow-up for further clarifications of goals of care. . (Amy Turk) Time Spent Total Floor Time (mins): 46 (Total time to include review medical records, physical exam, bedside goals of care conversation with patient's daughter, case discussion with RN.) >50% Counseling/Coord of Care: Yes (Amy Turk) Attestation To help prompt me to consider important information that might be impacting today's encounter and assessment, information from prior notes written by myself or my colleagues may have been "brought forward" into today's note. My signature on this note, however, is an attestation that I personally performed the exam, history, and/or decision-making noted today, and, unless otherwise indicated, the interactions with patient, family, and staff as well as the review of records all occurred today. I also attest that the listed assessment and stated plan reflect my best clinical judgment today based on the combination of historical information, prior notes, and today's exam/ interactions. When time spent is documented, it refers only to time spent today by the signer, or if indicated, combined time spent today by collaborating physician/nurse practitioner. (Amy Turk) Collaborating MD Comments Chart reviewed. Case discussed with palliative care STEAM ROLLER OPERATOR. Above note reviewed and I concur. . (Edmar Cabrera MD) Amy Turk Mar 13, 2017 13:59 Edmar Cabrera MD Jun 01, 2017 10:28
[2017-03-13] MEDS ORDERED: Vancomycin Consult Pharmacy 1 EA OTHER SCH (15:15)
[2017-03-13] MEDS ORDERED: VANCOMYCIN INJ 800 MG in SODIUM CHLOR 0.9% 250 ML INJ 250 ML IV ONE (15:15)
--- NOTE | 2017-03-13 15:26 | HHI.CCPN ---
Subjective Remarks/Hospital Course Patient is an 82-year-old female with past medical history significant for recurrent UTIs, atrial fibrillation, hypertension, dyslipidemia, dementia who was transferred from [place] emergency department after being diagnosed for NSTEMI. She presented with chest pain and EKG showed sinus tachycardia, and troponin was elevated at 4.43. Patient was given aspirin (by EMS) and started on IV heparin infusion. Patient was transferred to [facility] ICU per Dr. Keys's request. Other abnormal labs include BNP of 1330 and potassium of 3. Previous echo showed an ejection fraction of 45%. I evaluated the patient in the ICU. Appears in moderate distress, tachypneic, tachycardic, but denies chest pain (when asked in Bengali by RN). Patient was seen by Dr. Keys in the ICU, not a candidate for cardiac catheterization on interventions at this time. 2-D echo is pending. UA shows evidence of UTI. Started on cefepime and Diflucan (yeast present in UA). Repeat troponin and lactic acid pending at this time. SUBJ 03/12: I rounded on patient at about 0830 AM, patient was communicative tachypneic but not in severe distress. I was emergently called to the bedside at 10:30 AM patient was unresponsive agonal breathing with blood pressure 60/29 , bradycardic. Emergently started on dopamine. Patient was not protecting airway and I emergently intubated and placed on mechanical ventilation. An emergency left subclavian central line also placed. Levophed was added due to persistent hypotension. Patient appears to be in severe cardiogenic shock. EF 15 -20% down from 40% on 03/04/17. Patient also has moderate to severe MR, moderate to severe TR with moderate to severe pulmonary hypertension. I have discussed with Dr. Keys, she does not think patient is a candidate for any invasive therapy due to advanced age and comorbidities including dementia. I have updated daughter Cata 03/13: Remains intubated sedated critically ill. Remains on 3 pressors (dopamine , Neftali-Synephrine, milrinone). Urine output diminishing. Patient is in multiorgan failure prognosis poor. Family wants to continue full aggressive care palliative care is following. Urine culture showing group D enterococcus and Soledad. Cefepime discontinued Zosyn started along with vancomycin and continue Diflucan Objective Vital Signs Date Time Temp Pulse Resp B/P Pulse Ox O2 Delivery O2 Flow Rate FiO2 03/13/17 13:04 100 40 03/13/17 08:00 96 03/13/17 04:00 99.4 14 117/59 120/61 03/12/17 08:02 Nasal Cannula 3.00 Intake and Output 03/12/17 03/12/17 03/13/17 08:00 16:00 00:00 Intake Total 243 ml 1455 ml 791 ml Output Total 250 ml 125 ml 100 ml Balance -7 ml 1330 ml 691 ml Result Diagram: 03/13/17 0400 03/13/17 0400 Other Results Laboratory Tests Test 03/12/17 17:10 Blood Gas Puncture Site ART LINE Blood Gas Patient Temperature 98.6 Blood Gas HCO3 19 mmol/L (22-26) Blood Gas Base Excess -6.1 mmol/L (-2-2) Blood Gas Oxygen Saturation 95 % (90-100) Arterial Blood pH 7.34 (7.380-7.420) Arterial Blood Partial 35 mmHg (38-42) Pressure CO2 Arterial Blood Partial 95 mmHg Pressure O2 (61-120) Arterial Blood Oxygen Content 13.3 Vol % (12.0-20.0) Arterial Blood 1.5 % (0-4) Carboxyhemoglobin Arterial Blood Methemoglobin 1.2 % (0-2) Blood Gas Hemoglobin 9.9 G/DL (12.0-16.0) Oxygen Delivery Device VENTILATOR Blood Gas Ventilator Setting 500/14/5PEEP Blood Gas Inspired Oxygen 40 % Imaging CXR No acute findings Objective Remarks GENERAL: 82-year-old female acutely and chronically critically ill, on vent SKIN: Warm and dry. HEAD: Atraumatic. EYES: Pupils equal and round. No scleral icterus. ENT: No nasal bleeding or discharge. Orotracheally intubated NECK: Positive JVD CARDIOVASCULAR: Tachycardic, hypotensive. Systolic murmur at the apex. Remains on milrinone, dopamine and Neftali-Synephrine RESPIRATORY: Air entry equal bilaterally. Few basilar crackles GASTROINTESTINAL: Abdomen soft, non-tender, nondistended. NEUROLOGICAL: Intubated sedated. Occasionally opens eyes. Moving all extremities not following commands on sedation Urinary Catheter: Yes Assessment to: Continue Vascular Central Line Catheter: Yes Assessment to: Continue A/P Assessment and Plan NEURO: Acute encephalopathy Dementia Versed infusion for sedation, maintain ventilator synchrony Continue home Aricept Encephalopathy most likely secondary to metabolic causes RESP: Acute respiratory failure History of COPD Pulmonary artery hypertension Emergently intubated and placed on mechanical ventilation Ventilator bundle. DuoNeb scheduled and when necessary Bilateral pleural effusion secondary to CHF-now improving CV: NSTEMI Cardiogenic shock Acute systolic heart failure Lactic acidosis Ischemic cardiomyopathy with ejection fraction 15-20% Moderate to severe mitral and tricuspid regurgitation History of A. fib s/p 2.5L bolus 03/11. All IV fluids discontinued due to pulmonary edema IV Bumex 1 mg along with IV albumin 25 g Ejection fraction 15-20% today, in comparison to echocardiogram on 03/04/17 EF 40 % Continue milrinone to target cardiac index more than 2.2, continue dopamine and Neftali-Synephrine to keep map above 65 Arterial line And flow track monitoring Continue aspirin and Heparin on hold for invasive procedures Hold Coreg, amiodarone started by Dr. Keys Lactic acid elevation secondary to hypoperfusion and acute CT GI: NPO. IV Protonix Start tube feedings once pressor requirements come down : Oliguria Monitor renal function closely. Abrams catheter. Bumex 1 mg IV x1 ID: Severe sepsis UTI Urine culture growing Soledad and group D enterococcus Discontinue cefepime. Start Zosyn, start vancomycin Follow-up on blood culture HEME: Monitor CBC, CMP, coags ENDO: Hypokalemia Electrolyte replacement protocol PROPH: Bilateral lower extremity SCDs. IV Heparin, Protonix LINES: Left subclavian central line placed CC time 82 min excluding procedures Patient remains critically ill with guarded prognosis. She is in multiorgan failure demonstrated by cardiogenic shock, congestive heart failure, acute respiratory failure, acute encephalopathy and sepsis. Now renal function is deteriorating. I have discussed in detail with daughter Cata Yin. She understand the critical nature of the illness and poor prognosis but wants to continue full code and full care. Palliative care following Duy Valdez MD Mar 13, 2017 15:26
[2017-03-13] MEDS ORDERED: BUMETANIDE INJ 1 MG/4 ML VIAL IV PUSH ONE (15:45)
[2017-03-13] MEDS ORDERED: ALBUMIN HUMAN 25% 25 GM/100 ML BAGP IV ONE (15:45)
[2017-03-13] MEDS ORDERED: VANCOMYCIN 1,000 MG/NS 250 ML IV ONE ×2 (16:00)
[2017-03-13] MEDS ORDERED: POTASSIUM CHLOR 40 MEQ PREMIX 100 ML IV ONE (17:00)
[2017-03-13] MEDS: PIPERACIL-TAZO 3.375 GM PREMIX 50 ML IV SCH ×2 (17:38→22:35)
[2017-03-13] MEDS: RESP: ALBUTEROL 2.5 MG/IPRATROPIUM 0.5 MG NEB (SCH) NEB ×2 (17:41→21:16)
[2017-03-13] MEDS: VASOPRESSIN INJ 40 UNITS in DEXTROSE 5% IN WATER 100ML INJ 98 ML IV SCH ×2 (19:49)
[2017-03-13] MEDS ORDERED: CEFEPIME INJ 2,000 MG in SODIUM CHLORIDE 0.9% INJ 100 ML IV SCH (20:00)
[2017-03-13] MEDS: DONEPEZIL HCL 5 MG TAB PO SCH (20:15)
[2017-03-13] MEDS: HEPARIN SODIUM - SQ 10,000 UNITS/ML VIAL SQ SCH (20:15)
[2017-03-13] MEDS: DIGOXIN 0.25 MG TAB PO SCH (20:17)
[2017-03-13 23:29] LABS: ALKALINE PHOSPHATASE 52 U/L (45-117); ALT (GPT) 62 U/L (10-53); ANION GAP 11 MEQ/L (5-15); AST (GOT) 58 U/L (15-37); BICARBONATE 18.6 MEQ/L (21.0-32.0); BLOOD UREA NITROGEN 28 MG/DL (7-18); CHLORIDE 110 MEQ/L (98-107); GLOMERULAR FILTRATION RATE 52 ML/MIN (>89); POTASSIUM 5.9 MEQ/L (3.5-5.1); SODIUM (NA) 140 MEQ/L (136-145); TOTAL BILIRUBIN ADULT 0.7 MG/DL (0.2-1.0)
[2017-03-14] VITALS (38 sets, daily range): BP systolic 84–135; BP diastolic 50–74; PULSE 84–111; RESP 15–25; TEMP 97.8–99.8; O2SAT 83–100
[2017-03-14] MEDS: PHENYLEPHRINE INJ 160 MG in DEXTROSE 5% IN WATE 500 ML INJ 484 ML IV SCH ×4 (01:46→09:51)
[2017-03-14] MEDS: RESP: ALBUTEROL 2.5 MG/IPRATROPIUM 0.5 MG NEB (SCH) NEB ×4 (03:50→20:28)
[2017-03-14] MEDS: CHLORHEXIDINE GLUCONATE 2 % 1 PACK (2 CLOTHS) TOP SCH (04:00)
[2017-03-14 04:29] LABS: AUTOMATED NEUTROPHIL # 11.7 TH/MM3 (1.8-7.7); BASOPHIL # 0.1 TH/MM3 (0-0.2); BASOPHIL % 0.5 % (0.0-2.0); HEMATOCRIT 22.6 % (35.0-46.0); HEMO FLAGS DIFF FINAL; LYMPHOCYTE # 1.3 TH/MM3 (1.0-4.8); MEAN CELL VOLUME 96.9 FL (80.0-100.0); MEAN CORPUSCULAR HEMOGLOBIN 31.6 PG (27.0-34.0); MEAN CORPUSCULAR HGB CONC 32.6 % (32.0-36.0); MONO % 8.6 % (0.0-8.0); NEUT % 81.9 % (16.0-70.0); PLATELET COUNT 265 TH/MM3 (150-450); RED BLOOD COUNT 2.33 MIL/MM3 (4.00-5.30); WHITE BLOOD COUNT 14.4 TH/MM3 (4.0-11.0)
[2017-03-14 05:07] LABS: ALKALINE PHOSPHATASE 52 U/L (45-117); ALT (GPT) 59 U/L (10-53); ANION GAP 11 MEQ/L (5-15); AST (GOT) 52 U/L (15-37); BICARBONATE 17.8 MEQ/L (21.0-32.0); BLOOD UREA NITROGEN 31 MG/DL (7-18); CHLORIDE 109 MEQ/L (98-107); GLOMERULAR FILTRATION RATE 49 ML/MIN (>89); MAGNESIUM 1.5 MG/DL (1.5-2.5); POTASSIUM 4.8 MEQ/L (3.5-5.1); SODIUM (NA) 138 MEQ/L (136-145); TOTAL BILIRUBIN ADULT 0.8 MG/DL (0.2-1.0)
[2017-03-14] MEDS: PIPERACIL-TAZO 3.375 GM PREMIX 50 ML IV SCH ×4 (05:45→21:16)
--- NOTE | 2017-03-14 06:29 | RADRPT ---
EXAM DATE/TIME: 03/14/2017 03:48 [place] COMPARISON: CHEST SINGLE AP, March 13, 2017, 3:33. INDICATIONS : Respiratory failure, post STEMI MEDICAL HISTORY : Hypertension. SURGICAL HISTORY : None. ENCOUNTER: Subsequent ACUITY: 1 week PAIN SCORE: Non-responsive. LOCATION: Bilateral chest FINDINGS: The cardiac silhouette is normal in transverse diameter. Support lines and tubes are in satisfactory position. There is prominence of the central pulmonary vasculature with indistinct vascular margins c ompatible with vascular congestion but no evidence of overt failure. There is bilateral lower lobe at electasis versus pneumonia. CONCLUSION: 1. Cardiomegaly and findings of vascular congestion without overt failure. Bilateral lower lobe atele ctasis versus pneumonia. This is new when compared with the prior exam. Harvey Cheng MD on March 14, 2017 at 6:27 Board Certified Radiologist. This report was verified electronically.
[2017-03-14] MEDS: CHLORHEXIDINE 0.12% (ORAL KIT) 15 ML CUP MT SCH ×2 (08:00→21:17)
[2017-03-14] MEDS ORDERED: BUMETANIDE INJ 1 MG/4 ML VIAL IV PUSH ONE (08:30)
[2017-03-14] MEDS ORDERED: GLUCAGON 1 MG/ML VIAL OTHER PRN (08:30)
--- NOTE | 2017-03-14 08:37 | HHI.CCPN ---
Subjective Remarks/Hospital Course Patient is an 82-year-old female with past medical history significant for recurrent UTIs, atrial fibrillation, hypertension, dyslipidemia, dementia who was transferred from [place] emergency department after being diagnosed for NSTEMI. She presented with chest pain and EKG showed sinus tachycardia, and troponin was elevated at 4.43. Patient was given aspirin (by EMS) and started on IV heparin infusion. Patient was transferred to [facility] ICU per Dr. Keys's request. Other abnormal labs include BNP of 1330 and potassium of 3. Previous echo showed an ejection fraction of 45%. I evaluated the patient in the ICU. Appears in moderate distress, tachypneic, tachycardic, but denies chest pain (when asked in Japanese by RN). Patient was seen by Dr. Keys in the ICU, not a candidate for cardiac catheterization on interventions at this time. 2-D echo is pending. UA shows evidence of UTI. Started on cefepime and Diflucan (yeast present in UA). Repeat troponin and lactic acid pending at this time. SUBJ 03/12: I rounded on patient at about 0830 AM, patient was communicative tachypneic but not in severe distress. I was emergently called to the bedside at 10:30 AM patient was unresponsive agonal breathing with blood pressure 60/29 , bradycardic. Emergently started on dopamine. Patient was not protecting airway and I emergently intubated and placed on mechanical ventilation. An emergency left subclavian central line also placed. Levophed was added due to persistent hypotension. Patient appears to be in severe cardiogenic shock. EF 15 -20% down from 40% on 03/04/17. Patient also has moderate to severe MR, moderate to severe TR with moderate to severe pulmonary hypertension. I have discussed with Dr. Keys, she does not think patient is a candidate for any invasive therapy due to advanced age and comorbidities including dementia. I have updated daughter Cata 03/13: Remains intubated sedated critically ill. Remains on 3 pressors (dopamine , Neftali-Synephrine, milrinone). Urine output diminishing. Patient is in multiorgan failure prognosis poor. Family wants to continue full aggressive care palliative care is following. Urine culture showing group D enterococcus and Soledad. Cefepime discontinued Zosyn started along with vancomycin and continue Diflucan 03/14 Patient is sedated with versed and intubated. On Neosyn 200 mics and Milrinone. T: 100.0 last night. Off Dopamine Objective Vital Signs Date Time Temp Pulse Resp B/P Pulse Ox O2 Delivery O2 Flow Rate FiO2 03/14/17 08:08 100 40 03/14/17 06:00 97 03/14/17 04:00 99.4 25 89/55 103/54 03/13/17 20:04 Ventilator 03/12/17 08:02 3.00 Intake and Output 03/13/17 03/13/17 03/14/17 08:00 16:00 00:00 Intake Total 582 ml 1266 ml 1218 ml Output Total 75 ml 25 ml 450 ml Balance 507 ml 1241 ml 768 ml Result Diagram: 03/14/17 0416 03/14/17 0416 Other Results Laboratory Tests Test 03/13/17 03/14/17 22:39 04:16 Sodium Level 140 MEQ/L 138 MEQ/L Potassium Level 5.9 MEQ/L 4.8 MEQ/L Chloride Level 110 MEQ/L 109 MEQ/L Carbon Dioxide Level 18.6 MEQ/L 17.8 MEQ/L Anion Gap 11 MEQ/L 11 MEQ/L Blood Urea Nitrogen 28 MG/DL 31 MG/DL Creatinine 1.01 MG/DL 1.06 MG/DL Estimat Glomerular Filtration 52 ML/MIN 49 ML/MIN Rate Random Glucose 111 MG/DL 118 MG/DL Lactic Acid Level 2.4 mmol/L Calcium Level 8.7 MG/DL 8.6 MG/DL Total Bilirubin 0.7 MG/DL 0.8 MG/DL Aspartate Amino Transf 58 U/L 52 U/L (AST/SGOT) Alanine Aminotransferase 62 U/L 59 U/L (ALT/SGPT) Alkaline Phosphatase 52 U/L 52 U/L Total Protein 5.4 GM/DL 5.1 GM/DL Albumin 2.5 GM/DL 2.4 GM/DL White Blood Count 14.4 TH/MM3 Red Blood Count 2.33 MIL/MM3 Hemoglobin 7.4 GM/DL Hematocrit 22.6 % Mean Corpuscular Volume 96.9 FL Mean Corpuscular Hemoglobin 31.6 PG Mean Corpuscular Hemoglobin 32.6 % Concent Red Cell Distribution Width 16.0 % Platelet Count 265 TH/MM3 Mean Platelet Volume 8.1 FL Neutrophils (%) (Auto) 81.9 % Lymphocytes (%) (Auto) 9.0 % Monocytes (%) (Auto) 8.6 % Eosinophils (%) (Auto) 0.0 % Basophils (%) (Auto) 0.5 % Neutrophils # (Auto) 11.7 TH/MM3 Lymphocytes # (Auto) 1.3 TH/MM3 Monocytes # (Auto) 1.2 TH/MM3 Eosinophils # (Auto) 0.0 TH/MM3 Basophils # (Auto) 0.1 TH/MM3 CBC Comment DIFF FINAL Differential Comment Magnesium Level 1.5 MG/DL Random Vancomycin Level 11.8 COMMENT Imaging Last Impressions Chest X-Ray 03/14/17 0600 Signed Impressions: Service Date/Time: Tuesday, March 14, 2017 03:48 - CONCLUSION: 1. Cardiomegaly and findings of vascular congestion without overt failure. Bilateral lower lobe atelectasis versus pneumonia. This is new when compared with the prior exam. Harvey Cheng MD Head CT 03/12/17 0000 Signed Impressions: Service Date/Time: Sunday, March 12, 2017 13:00 - CONCLUSION: 1. Cerebral atrophy and chronic ischemic small vessel vasculopathy. Evans Augustin MD Objective Remarks GENERAL: 82-year-old female acutely and chronically critically ill, on vent SKIN: Warm and dry. HEAD: Atraumatic. EYES: Pupils equal and round. No scleral icterus. ENT: No nasal bleeding or discharge. Orotracheally intubated NECK: Positive JVD CARDIOVASCULAR: Tachycardic, hypotensive. Systolic murmur at the apex. Remains on milrinone, dopamine and Neftali-Synephrine RESPIRATORY: Air entry equal bilaterally. Few basilar crackles GASTROINTESTINAL: Abdomen soft, non-tender, nondistended. NEUROLOGICAL: Intubated sedated. Occasionally opens eyes. Moving all extremities not following commands on sedation A/P Assessment and Plan NEURO: Acute encephalopathy Dementia Versed infusion for sedation, maintain ventilator synchrony. Daily sedation vacation. Monitor neuro status. Continue home Aricept Encephalopathy most likely secondary to metabolic causes RESP: Acute respiratory failure History of COPD Pulmonary artery hypertension Continue with vent support and keep sat >92% Ventilator bundle. DuoNeb scheduled and when necessary CV: NSTEMI Cardiogenic shock Acute systolic heart failure Lactic acidosis Ischemic cardiomyopathy with ejection fraction 15-20% Moderate to severe mitral and tricuspid regurgitation History of A. fib s/p 2.5L bolus 03/11. All IV fluids discontinued due to pulmonary edema Ejection fraction 15-20% , in comparison to echocardiogram on 03/04/17 EF 40% Continue milrinone to target cardiac index more than 2.2, continue Neftali- Synephrine to keep map above 65 Place on stress dose steroids- HC 100 mg IV Q8 Arterial line And flow track monitoring Amiodarone 400mg Q12 started by Dr. Keys, On Digoxin 0.25mg daily, check Dig level. Lactic acid trending down, recheck level. GI: IV Protonix GI eval for anemia, transfuse 1unit PRBC : Monitor renal function , I/O's, electrolytes replacement per protocol. Diurese with Bumex 1mg x1 ID: Severe sepsis UTI Urine culture growing Soledad and group D enterococcus Continue abx( Zosyn, Diflucan, vancomycin x1 dose 03/13) monitor for signs of infections ( Fever, WBC) ID eval recheck UA with cx if indicated HEME: Monitor CBC, CMP, coags Transfuse 1unit PRBC, GI eval ENDO: SSI for glycemic control Electrolyte replacement protocol PROPH: Bilateral lower extremity SCDs. hold SQ Heparin for anemia requiring blood transfusion, Protonix LINES: Left subclavian central line, Right Femoral Art line- placed 03/12 CC time 30 min excluding procedures Palliative care following Deepthi Griffiths MD Mar 14, 2017 08:37
[2017-03-14] MEDS: INSULIN NovoLIN REGULAR SUPPLEMENTAL SCALE SQ SCH ×3 (09:00→21:00)
[2017-03-14 09:21] LABS: AUTOMATED NEUTROPHIL # 10.3 TH/MM3 (1.8-7.7); BASOPHIL % 0.4 % (0.0-2.0); EOSINOPHIL % 0.1 % (0.0-4.0); HEMATOCRIT 21.9 % (35.0-46.0); HEMO FLAGS DIFF FINAL; LYMPH % 10.4 % (9.0-44.0); LYMPHOCYTE # 1.3 TH/MM3 (1.0-4.8); MEAN CELL VOLUME 97.2 FL (80.0-100.0); MEAN CORPUSCULAR HEMOGLOBIN 31.7 PG (27.0-34.0); MEAN CORPUSCULAR HGB CONC 32.6 % (32.0-36.0); MONO % 8.6 % (0.0-8.0); NEUT % 80.5 % (16.0-70.0); PLATELET COUNT 247 TH/MM3 (150-450); RED BLOOD COUNT 2.25 MIL/MM3 (4.00-5.30); RED CELL DISTRIBUTION WIDTH 15.8 % (11.6-17.2); WHITE BLOOD COUNT 12.8 TH/MM3 (4.0-11.0)
[2017-03-14 09:30] LABS: BACTERIA, URINE OCC /hpf; HYALINE CAST, URINE 5 /lpf (RARE); MUCUS URINE FEW /lpf (OCC); SQUAMOUS EPITHELIAL CELL URINE 3 /hpf (0-5)
[2017-03-14 09:32] LABS: URINE COLOR YELLOW (YELLW/STRAW)
[2017-03-14 09:35] LABS: COMMENT (UR) CATH-CULTURE IND; CULTURE IF INDICATED CATH CULTURE IND
[2017-03-14 09:36] LABS: BLOOD, URINE LARGE (NEG); GLUCOSE,URINE NEG (NEG); KETONE, URINE NEG (NEG); NITRITE,URINE NEG (NEG)
--- NOTE | 2017-03-14 09:41 | PD.CARD.PN ---
Subjective Subjective Remarks Vent Objective Medications Current Medications Medications (Trade) Dose Ordered Sig/Arlet Route Start Time Stop Time Status Last Admin (Protonix Inj) 40 mg DAILY IV 03/12/17 09:00 03/13/17 08:42 Miscellaneous Information 1 Q361D XX 03/11/17 13:45 03/12/17 23:07 (Chlorhexidine 2% Cloth) 3 pack Taper DAILY@04 TOP 03/12/17 04:00 03/08/18 03:59 03/14/17 04:00 (Chlorhexidine 2% Cloth) 3 pack UNSCH PRN TOP 03/11/17 13:45 (Steph-Colace) 1 tab BID PO 03/11/17 21:00 03/13/17 20:15 (Milk Of Magnesia Liq) 30 ml Q12H PRN PO 03/11/17 13:45 (Senokot) 17.2 mg Q12H PRN PO 03/11/17 13:45 (Dulcolax Supp) 10 mg DAILY PRN RECTAL 03/11/17 13:45 (Lactulose Liq) 30 ml DAILY PRN PO 03/11/17 13:45 (Aspirin Chew) 81 mg DAILY CHEW 03/12/17 09:00 03/13/17 08:42 (Lanoxin) 0.25 mg HS PO 03/11/17 21:00 03/13/17 20:17 (Aricept) 5 mg HS PO 03/11/17 21:00 03/13/17 20:15 Potassium Chloride 10 meq 10 meq DAILY PO 03/12/17 09:00 03/13/17 08:42 Potassium Chloride 100 ml @ 50 mls/hr Q2H PRN IV 03/11/17 14:30 03/13/17 05:56 (KCl 20 Meq Premix Inj) 100 ml @ 50 mls/hr Q2H PRN IV 03/11/17 14:30 Potassium Bicarb/ Potassium Chloride 50 meq 50 meq UNSCH PRN PO 03/11/17 14:30 Potassium Chloride 100 ml @ 25 mls/hr UNSCH PRN IV 03/11/17 14:30 Potassium Chloride 100 ml @ 50 mls/hr Q2H PRN IV 03/11/17 14:30 (Magnesium Sulfate Inj/NS Inj) 100 ml @ 50 mls/hr UNSCH PRN IV 03/11/17 14:30 Magnesium Oxide 800 mg 800 mg UNSCH PRN PO 03/11/17 14:30 (Magnesium Sulfate Inj/NS Inj) 100 ml @ 50 mls/hr UNSCH PRN IV 03/11/17 14:30 Potassium Phosphate 2000 mg 2,000 mg Q4H PRN PO 03/11/17 14:30 (Sodium Phosphate Inj/NS 250 ml Inj) 250 ml @ 42 mls/hr UNSCH PRN IV 03/11/17 14:30 Potassium Phosphate 2000 mg 2,000 mg UNSCH PRN PO/TUBE 03/11/17 14:28 (Potassium Phosphate Inj/NS 250 ml Inj) 260 ml @ 42 mls/hr UNSCH PRN IV 03/11/17 14:28 (Diflucan) 100 mg DAILY PO 03/11/17 17:00 03/13/17 08:42 Haloperidol Lactate 2 mg 2 mg Q6H PRN IV 03/11/17 17:00 (DOPamine INJ PREMIX) 500 ml @ 6.075 mls/ hr TITRATE IV 03/12/17 10:45 03/13/17 11:18 Terbutaline Sulfate 1 mg 1 mg UNSCH PRN SQ 03/12/17 10:45 (Levophed-Dextrose Drip) 250 ml @ 0 mls/hr TITRATE IV 03/12/17 11:45 03/12/17 19:29 Chlorhexidine Gluconate 15 ml 15 ml BID@08,20 MT 03/12/17 20:00 03/13/17 19:49 Midazolam HCl 100 ml @ 0 mls/hr TITRATE IV 03/12/17 14:00 03/13/17 17:38 Milrinone Lactate 20 mg/Sodium Chloride 100 ml @ 6.07 mls/hr [id number] IV 03/12/17 13:59 03/13/17 21:41 (Neosynephrine Inj/D5W 500 ml Inj) 500 ml @ 0 mls/hr TITRATE IV 03/13/17 03:30 03/14/17 01:46 Amiodarone HCl 400 mg 400 mg Q12HR OG-TUBE 03/13/17 09:00 03/13/17 20:15 Piperacillin Sod/ Tazobactam Sod 50 ml @ 200 mls/hr Q6H IV 03/13/17 17:00 03/14/17 05:45 (Vancomycin Consult Pharmacy) 0 ml @ 0 mls/hr UNSCH OTHER 03/13/17 15:15 (Heparin Inj) 5,000 units Q12HR SQ 03/13/17 21:00 03/13/17 20:15 (D50w (Vial) Inj) 50 ml UNSCH PRN IV 03/14/17 08:30 (Glucagon Inj) 1 mg UNSCH PRN OTHER 03/14/17 08:30 (NovoLIN R SUPPLEMENTAL SCALE) 1 Q6H SQ 03/14/17 09:00 Vital Signs / I&O Vital Signs Date Time Temp Pulse Resp B/P Pulse Ox O2 Delivery O2 Flow Rate FiO2 03/14/17 08:08 100 40 03/14/17 06:00 97 03/14/17 04:00 40 03/14/17 04:00 99.4 102 25 89/55 100 103/54 03/14/17 04:00 102 03/14/17 03:43 100 40 03/14/17 02:00 103 03/14/17 00:38 92 40 03/14/17 00:00 111 03/14/17 00:00 99.8 111 19 88/55 100 93/50 03/14/17 00:00 40 03/13/17 22:00 126 03/13/17 20:04 100 40 03/13/17 20:04 100 Ventilator 40 03/13/17 20:00 122 03/13/17 20:00 40 03/13/17 20:00 100.0 122 20 91/55 97 98/56 03/13/17 18:00 112 03/13/17 16:48 100 40 03/13/17 16:00 87 03/13/17 16:00 40 03/13/17 16:00 97.0 87 14 106/56 100 115/53 03/13/17 14:00 107 03/13/17 13:04 100 40 03/13/17 12:00 112 03/13/17 12:00 97.4 112 14 112/57 100 130/64 03/13/17 12:00 40 03/13/17 10:05 100 40 03/13/17 10:00 90 I/O 03/13/17 03/13/17 03/13/17 03/14/17 03/14/17 03/14/17 06:59 14:59 22:59 06:59 14:59 22:59 Intake Total 582 ml 2484 ml 650 ml Output Total 75 ml 475 ml 175 ml Balance 507 ml 2009 ml 475 ml IV Total 582 ml 2384 ml 650 ml Albumin 100 ml Output Urine Total 75 ml 475 ml 175 ml # Bowel Movements 0 0 1 Physical Exam GENERAL: Well developed, well nourished. No acute distress. HEENT: Jugular venous pressure is normal. CHEST: Lungs decreased bilaterally. Unlabored respiratory effort. CARDIAC: irregular rate and tachy rhythm without S3, S4, or murmur. ABDOMEN: Soft, nontender, EXTREMITIES: No clubbing, + cyanosis, no edema. Laboratory Laboratory Tests Test 03/13/17 03/14/17 03/14/17 22:39 04:16 09:05 Sodium Level 140 MEQ/L 138 MEQ/L Potassium Level 5.9 MEQ/L 4.8 MEQ/L Chloride Level 110 MEQ/L 109 MEQ/L Carbon Dioxide Level 18.6 MEQ/L 17.8 MEQ/L Anion Gap 11 MEQ/L 11 MEQ/L Blood Urea Nitrogen 28 MG/DL 31 MG/DL Creatinine 1.01 MG/DL 1.06 MG/DL Estimat Glomerular Filtration 52 ML/MIN 49 ML/MIN Rate Random Glucose 111 MG/DL 118 MG/DL Lactic Acid Level 2.4 mmol/L Calcium Level 8.7 MG/DL 8.6 MG/DL Total Bilirubin 0.7 MG/DL 0.8 MG/DL Aspartate Amino Transf 58 U/L 52 U/L (AST/SGOT) Alanine Aminotransferase 62 U/L 59 U/L (ALT/SGPT) Alkaline Phosphatase 52 U/L 52 U/L Total Protein 5.4 GM/DL 5.1 GM/DL Albumin 2.5 GM/DL 2.4 GM/DL White Blood Count 14.4 TH/MM3 12.8 TH/MM3 Red Blood Count 2.33 MIL/MM3 2.25 MIL/MM3 Hemoglobin 7.4 GM/DL 7.1 GM/DL Hematocrit 22.6 % 21.9 % Mean Corpuscular Volume 96.9 FL 97.2 FL Mean Corpuscular Hemoglobin 31.6 PG 31.7 PG Mean Corpuscular Hemoglobin 32.6 % 32.6 % Concent Red Cell Distribution Width 16.0 % 15.8 % Platelet Count 265 TH/MM3 247 TH/MM3 Mean Platelet Volume 8.1 FL 8.4 FL Neutrophils (%) (Auto) 81.9 % 80.5 % Lymphocytes (%) (Auto) 9.0 % 10.4 % Monocytes (%) (Auto) 8.6 % 8.6 % Eosinophils (%) (Auto) 0.0 % 0.1 % Basophils (%) (Auto) 0.5 % 0.4 % Neutrophils # (Auto) 11.7 TH/MM3 10.3 TH/MM3 Lymphocytes # (Auto) 1.3 TH/MM3 1.3 TH/MM3 Monocytes # (Auto) 1.2 TH/MM3 1.1 TH/MM3 Eosinophils # (Auto) 0.0 TH/MM3 0.0 TH/MM3 Basophils # (Auto) 0.1 TH/MM3 0.0 TH/MM3 CBC Comment DIFF FINAL DIFF FINAL Differential Comment Magnesium Level 1.5 MG/DL Random Vancomycin Level 11.8 COMMENT Imaging Last 72 hours Impressions Chest X-Ray 03/14/17 0600 Signed Impressions: Service Date/Time: Tuesday, March 14, 2017 03:48 - CONCLUSION: 1. Cardiomegaly and findings of vascular congestion without overt failure. Bilateral lower lobe atelectasis versus pneumonia. This is new when compared with the prior exam. Harvey Cheng MD Chest X-Ray 03/13/17 0600 Signed Impressions: Service Date/Time: February 03:33 - CONCLUSION: Improving aeration of the lung mariee compared to the prior study. Colten Dia MD Head CT 03/12/17 0000 Signed Impressions: Service Date/Time: Sunday, March 12, 2017 13:00 - CONCLUSION: 1. Cerebral atrophy and chronic ischemic small vessel vasculopathy. Evans Augustin MD Chest X-Ray 03/12/17 0000 Signed Impressions: Service Date/Time: Sunday, March 12, 2017 11:30 - CONCLUSION: 1. Endotracheal tube with tip at the orifice of the right mainstem bronchus. This should be retracted at least 2 cm. 2. Bilateral perihilar airspace disease likely edema. Evans Augustin MD Assessment and Plan Assessment and Plan AF- fair rate control 03/14- no real change; called daughter-NA NSTEMI- EF 25%, -continue conservative measures -BB and BUBBA relatively contraindicated with hypotension -poor/not revasc candidate secondary to co morbid conditions Cardiomyopathy- as above, on milrinone resp -oxygen placed back on, tx per [facility] Anemia UTI sepsis- [facility] Prognosis is poor with multisystem failure (>50%) Xiao Keys MD Mar 14, 2017 09:41
[2017-03-14] MEDS: DOCUSATE SODIUM 50 MG/SENNA 8.6 MG TAB PO SCH ×2 (09:52→21:00)
[2017-03-14] MEDS: POTASSIUM CHLORIDE 10 MEQ CAP PO SCH (09:52)
[2017-03-14] MEDS: ASPIRIN 81 MG CHEW TAB CHEW SCH (09:52)
[2017-03-14] MEDS: AMIODARONE 200 MG TAB OG-TUBE SCH ×2 (09:52→21:16)
[2017-03-14] MEDS: HEPARIN SODIUM - SQ 10,000 UNITS/ML VIAL SQ SCH (09:53)
[2017-03-14] MEDS: PANTOPRAZOLE SODIUM 40 MG VIAL IV SCH (09:53)
[2017-03-14] MEDS: FLUCONAZOLE 100 MG TAB PO SCH (09:53)
[2017-03-14] MEDS: MIDAZOLAM 100 MG/100 ML INJ 100 ML IV SCH (09:57)
--- NOTE | 2017-03-14 13:00 | PD.CONS ---
HPI History of Present Illness This is a 82 year old who presented to the [place] [facility] for chest pain and was found to have tachycardia with elevated troponin at 4.43. She was subsequently transferred to [facility] for further evaluation and treatment of NSTEMI. She is currently sedated on the ventilator and therefore the history has been obtained from the EMR, nursing staff, and by the patient's daughter. She is currently in the ICU, being treated for the above, as well as acute encephalopathy, dementia, respiratory failure, cardiomyopathy, atrial fibrillation, lactic acidosis, sepsis, UTI, acute kidney injury with multiple electrolyte abnormalities. She was noted to have an HH of 9.9/30.3 on admission and this has slowly been trending down and is now at 7.1/21.9. She is on Protonix 40mg IV daily and had been getting Heparin up until today, when it was placed on hold. The nurses report that she has not had any obvious GI bleeding and state she had a normal brown stool earlier. I called the daughter Cata Yin and she informed me that she was recently hospitalized for GI bleeding in December of this year at [facility], where she was evaluated with EGD/Colonoscopy and found to have an ulcer. She reports that she was unhappy with the care her mom was receiving and this transferred her to [facility] for further treatment. D/W nurses and they will have her sign the releases when she comes in today. (Luda Montiel) PFSH Past Medical History Dementia Recurrent UTIs Urinary retention Atrial fibrillation Hypertension GERD Hyperlipidemia Recent history of GI bleed Anemia Ulcer Past Surgical History EGD/Colonoscopy (Luda Montiel) Coded Allergies: Aspirin (Verified Allergy, Unknown, 03/11/17) pt sts ulcer Uncoded Allergies: antipsycotics (Allergy, Intermediate, Confusion, 03/01/17) Medications Allergies Coded Allergies Type Severity Reaction Last Updated Verified Aspirin Allergy Unknown 03/11/17 Yes Uncoded Allergies Type Severity Reaction Last Updated Verified antipsycotics Allergy Intermediate Confusion 03/01/17 Active Scripts Medications Dose Route/Sig Days Date Category Digoxin 0.25 Mg Tab 0.25 Mg PO HS 03/10/17 Rx Klonopin (Clonazepam) 0.5 Mg Tab 0.5 Mg PO Q12HR PRN 03/10/17 Rx Coreg (Carvedilol) 3.125 Mg Tab 3.125 Mg PO DAILY 03/10/17 Rx Wheelchair (Device) 1 Mis Mis 1 Ea .ROUTE DIRECTED 03/06/17 Rx Aspirin 81 Mg Chew 81 Mg CHEW DAILY 03/04/17 Rx Commode 3-in-1 (Device) 1 Mis Mis 1 Ea .ROUTE DIRECTED 03/04/17 Rx Walker with Front Wheels (Device) 1 Mis Mis 1 Ea .ROUTE DIRECTED 03/04/17 Rx Donepezil 5 Mg Tab 5 Mg PO HS 03/04/17 Rx Senna Plus 8.6-50 mg (Sennosides-Docusate Sodium) 1 Tab Tab 1 Tab PO BID 03/03/17 Rx Protonix (Pantoprazole Sodium) 40 Mg Tab 40 Mg PO BID 02/28/17 Reported Potassium Chloride ER (Potassium Chloride) 10 Meq Cap 10 Meq PO DAILY 02/28/17 Reported Family History Family history of CAD. Daughter denies any cancer or CVAs in the family. . (Luda Montiel) Review of Systems ROS Unable to obtain (Luda Montiel) GI Exam Vitals I&O Vital Signs Date Time Temp Pulse Resp B/P Pulse Ox O2 Delivery O2 Flow Rate FiO2 03/14/17 12:00 40 03/14/17 11:27 100 40 03/14/17 08:08 100 40 03/14/17 08:00 40 03/14/17 06:00 97 03/14/17 04:00 40 03/14/17 04:00 99.4 102 25 89/55 100 103/54 03/14/17 04:00 102 03/14/17 03:43 100 40 03/14/17 02:00 103 03/14/17 00:38 92 40 03/14/17 00:00 111 03/14/17 00:00 99.8 111 19 88/55 100 93/50 03/14/17 00:00 40 03/13/17 22:00 126 03/13/17 20:04 100 40 03/13/17 20:04 100 Ventilator 40 03/13/17 20:00 122 03/13/17 20:00 40 03/13/17 20:00 100.0 122 20 91/55 97 98/56 03/13/17 18:00 112 03/13/17 16:48 100 40 03/13/17 16:00 87 03/13/17 16:00 40 03/13/17 16:00 97.0 87 14 106/56 100 115/53 03/13/17 14:00 107 03/13/17 13:04 100 40 I/O 03/13/17 03/13/17 03/13/17 03/14/17 03/14/17 03/14/17 07:00 15:00 23:00 07:00 15:00 23:00 Intake Total 582 ml 1266 ml 1218 ml 650 ml Output Total 75 ml 25 ml 450 ml 175 ml Balance 507 ml 1241 ml 768 ml 475 ml IV Total 582 ml 1166 ml 1218 ml 650 ml Albumin 100 ml Output Urine Total 75 ml 25 ml 450 ml 175 ml # Bowel Movements 0 0 1 Imaging Last Impressions Chest X-Ray 03/14/17 0600 Signed Impressions: Service Date/Time: Tuesday, March 14, 2017 03:48 - CONCLUSION: 1. Cardiomegaly and findings of vascular congestion without overt failure. Bilateral lower lobe atelectasis versus pneumonia. This is new when compared with the prior exam. Harvey Cheng MD Head CT 03/12/17 0000 Signed Impressions: Service Date/Time: Sunday, March 12, 2017 13:00 - CONCLUSION: 1. Cerebral atrophy and chronic ischemic small vessel vasculopathy. Evans Augustin MD Laboratory Test 03/13/17 03/14/17 03/14/17 03/14/17 22:39 04:16 08:59 09:05 Sodium Level 140 MEQ/L 138 MEQ/L Potassium Level 5.9 MEQ/L 4.8 MEQ/L Chloride Level 110 MEQ/L 109 MEQ/L Carbon Dioxide Level 18.6 MEQ/L 17.8 MEQ/L Anion Gap 11 MEQ/L 11 MEQ/L Blood Urea Nitrogen 28 MG/DL 31 MG/DL Creatinine 1.01 MG/DL 1.06 MG/DL Estimat Glomerular Filtration 52 ML/MIN 49 ML/MIN Rate Random Glucose 111 MG/DL 118 MG/DL Lactic Acid Level 2.4 mmol/L 1.9 mmol/L Calcium Level 8.7 MG/DL 8.6 MG/DL Total Bilirubin 0.7 MG/DL 0.8 MG/DL Aspartate Amino Transf 58 U/L 52 U/L (AST/SGOT) Alanine Aminotransferase 62 U/L 59 U/L (ALT/SGPT) Alkaline Phosphatase 52 U/L 52 U/L Total Protein 5.4 GM/DL 5.1 GM/DL Albumin 2.5 GM/DL 2.4 GM/DL White Blood Count 14.4 TH/MM3 12.8 TH/MM3 Red Blood Count 2.33 MIL/MM3 2.25 MIL/MM3 Hemoglobin 7.4 GM/DL 7.1 GM/DL Hematocrit 22.6 % 21.9 % Mean Corpuscular Volume 96.9 FL 97.2 FL Mean Corpuscular Hemoglobin 31.6 PG 31.7 PG Mean Corpuscular Hemoglobin 32.6 % 32.6 % Concent Red Cell Distribution Width 16.0 % 15.8 % Platelet Count 265 TH/MM3 247 TH/MM3 Mean Platelet Volume 8.1 FL 8.4 FL Neutrophils (%) (Auto) 81.9 % 80.5 % Lymphocytes (%) (Auto) 9.0 % 10.4 % Monocytes (%) (Auto) 8.6 % 8.6 % Eosinophils (%) (Auto) 0.0 % 0.1 % Basophils (%) (Auto) 0.5 % 0.4 % Neutrophils # (Auto) 11.7 TH/MM3 10.3 TH/MM3 Lymphocytes # (Auto) 1.3 TH/MM3 1.3 TH/MM3 Monocytes # (Auto) 1.2 TH/MM3 1.1 TH/MM3 Eosinophils # (Auto) 0.0 TH/MM3 0.0 TH/MM3 Basophils # (Auto) 0.1 TH/MM3 0.0 TH/MM3 CBC Comment DIFF FINAL DIFF FINAL Differential Comment Magnesium Level 1.5 MG/DL Random Vancomycin Level 11.8 COMMENT Urine Color YELLOW Urine Turbidity CLOUDY Urine pH 6.0 Urine Specific [place] 1.015 Urine Protein 100 mg/dL Urine Glucose (UA) NEG mg/dL Urine Ketones NEG mg/dL Urine Occult Blood LARGE Urine Nitrite NEG Urine Bilirubin NEG Urine Urobilinogen 0.2 MG/DL Urine Leukocyte Esterase NEG Urine RBC 101 /hpf Urine WBC /hpf Urine WBC Clumps MANY Urine Squamous Epithelial 3 /hpf Cells Urine Bacteria OCC /hpf Urine Hyaline Casts 5 /lpf Urine Mucus FEW /lpf Urine Yeast (Budding) MANY Microscopic Urinalysis Comment CATH-CULTURE IND Digoxin Level 1.4 NG/ML Date/Time Procedure Status Source Growth 03/14/17 08:59 Urine Culture Received Urine Catheterized Urine Pending 03/14/17 08:52 Gram Stain - Final Resulted Sputum Endotracheal 03/14/17 08:52 Sputum Culture Resulted Sputum Endotracheal Pending 03/14/17 08:22 Gram Stain Received Sputum Endotracheal Pending 03/14/17 08:22 Sputum Culture Received Sputum Endotracheal Pending 03/12/17 05:24 Aerobic Blood Culture - Preliminary Resulted Blood Peripheral NO GROWTH IN 2 DAYS 03/12/17 05:24 Anaerobic Blood Culture - Preliminary Resulted Blood Peripheral NO GROWTH IN 2 DAYS 03/11/17 13:40 Urine Culture - Preliminary Resulted Urine Catheterized Urine Seth Albicans Group D Enterococcus Physical Examination HEENT: Normocephalic; atraumatic; no jaundice. CHEST: OETT to vent. Diminished bases CARDIAC: Irregular, afib, on vasopressors ABDOMEN: Soft, nondistended, nontender; no hepatosplenomegaly; bowel sounds are present in all four quadrants. EXTREMITIES: Generalized edema. PANEL SEWER: Sedated on vent (Luda Montiel) Assessment and Plan Plan ASSESSMENT: - Anemia with drop in Hgb. She was noted to have an HH of 9.9/30.3 on admission and this has slowly been trending down and is now at 7.1/21.9. No obvious GI bleeding. No vomiting. No rectal bleeding. Spoke to daughter, Cata Yin , states her mother was recently hospitalized at [facility] for GIB and evaluated with egd/colonoscopy and found to have an ulcer. She reports that she was not happy with the care her mother was receiving and then transferred her to [facility] for further tx. She has been on Protonix at home. She was on heparin here, until today when it was placed on hold. Will increase Protonix to BID dosing. Hemoccult stool. Monitor HH, tx as necessary. Consider repeat EGD if active bleeding/drop in hgb. Will try to obtain records from recent hospitalization for gi bleeding. - NSTEMI, Atrial fibrillation, CMP. Cardiology following, not a candidate for revascularization. Medical management. - Respiratory failure. Vent per [facility]. - Sepsis, UTI. Urine cx on admission with seth albicans and enterococcus faecium. Zyvox, Zosyn BCx no growth 2 days, sputum/urine pending. - WALESKA with electrolyte abnormalities. Per CCM - Dementia. Per CCM PLAN - NPO for now - Increase Protonix to 40mg IV BID - Monitor HH - Transfuse as necessary - Obtain records from recent hospitalization for GIB from [facility] in [place] and [facility] - Hemoccult stool - Monitor labs - Supportive care - Further recommendations to follow based on results of above - D/W daughter plan - Pt seen and examined by Dr. Escamilla and myself and this note is written on her behalf (Luda Montiel) Physician Comments seen, examined agree with above unstable for any procedure at this time if active bleeding we will reassess (Jessi Escamilla MD) Luda Montiel Mar 14, 2017 13:00 Jessi Escamilla MD Mar 14, 2017 20:44
--- NOTE | 2017-03-14 14:04 | PD.ID.CON ---
History of Present Illness Service ID Consult Requested By Dr Calhoun Reason for Consult VRE UTI Primary Care Physician Non-Staff Diagnoses: History of Present Illness Patient is an 82-year-old female with past medical history significant for recurrent UTIs, atrial fibrillation, hypertension, dyslipidemia, dementia She presented with chest pain and EKG showed sinus tachycardia, and troponin was elevated at 4.43. Pt was transferred from [place] emergency department after being diagnosed for NSTEMI on 03/11 BNP of 1330 Pt was hypothermic on [place] and leukocytosis up to 21K She was started on broad spectrum abx She has very abnormal UA and UTI was suspected Next day pt developped severe cardiogenic shockwas emergently intubated and placed on mechanical ventilation, started on Levophed for hypotension.Her EF is 15-20% down from 40% on 03/04/17, pt has moderate to severe MR, moderate to severe TR with moderate to severe pulmonary hypertension. Pt is managed medically due to advanced age and comorbidities including dementia. She remains intubated sedated critically ill, on Neosyn 200 mics She has fever, temps 100.0 last night. Her urine culture grew out VRE Review of Systems ROS Limitations: Clinical Condition, Intubated, Altered Mental Status, Unresponsive Past Family Social History Allergies: Coded Allergies: Aspirin (Verified Allergy, Unknown, 03/11/17) pt sts ulcer Uncoded Allergies: antipsycotics (Allergy, Intermediate, Confusion, 03/01/17) Past Medical History Recurrent UTI Atrial fibrillation Dyslipidemia Hypertension Dementia Past Surgical History in the past Active Ordered Medications Medications where reviewed in EMR Antibiotics Include: zosyn vanco fluconazole Family History Unable to obtain Social History Quit smoking 40 years ago Physical Exam Vital Signs Vital Signs Date Time Temp Pulse Resp B/P Pulse Ox O2 Delivery O2 Flow Rate FiO2 03/14/17 12:00 99.0 92 23 90/55 100 104/53 03/14/17 12:00 40 03/14/17 12:00 92 03/14/17 11:27 100 40 03/14/17 11:00 96 03/14/17 10:00 96 03/14/17 09:00 95 03/14/17 08:08 100 40 03/14/17 08:00 95 03/14/17 08:00 98.8 95 24 84/52 83 98/50 03/14/17 08:00 40 03/14/17 07:00 92 03/14/17 06:00 97 03/14/17 04:00 40 03/14/17 04:00 99.4 102 25 89/55 100 103/54 03/14/17 04:00 102 03/14/17 03:43 100 40 03/14/17 02:00 103 03/14/17 00:38 92 40 03/14/17 00:00 111 03/14/17 00:00 99.8 111 19 88/55 100 93/50 03/14/17 00:00 40 03/13/17 22:00 126 03/13/17 20:04 100 40 03/13/17 20:04 100 Ventilator 40 03/13/17 20:00 122 03/13/17 20:00 40 03/13/17 20:00 100.0 122 20 91/55 97 98/56 03/13/17 18:00 112 03/13/17 16:48 100 40 03/13/17 16:00 87 03/13/17 16:00 40 03/13/17 16:00 97.0 87 14 106/56 100 115/53 Physical Exam CONSTITUTIONAL/GENERAL: This is an adequately nourished patient, in no apparent distress. TUBES/LINES/DRAINS: SKIN: No jaundice, rashes, or lesions. Ecchymoses on upper extremities. Skin temperature decreased acrally. Not diaphoretic. HEAD: Atraumatic. Normocephalic. EYES: Pupils equal and round and reactive. Extraocular motions intact. No scleral icterus. No injection or drainage. Fundi not examined. ENT: Hearing grossly normal. Nose without bleeding or purulent drainage. orally intubated without visible erythema, exudates, masses, or lesions. NECK: Trachea midline. Supple, nontender. CARDIOVASCULAR: Regular rate and rhythm without murmurs, gallops, or rubs. No JVD + delayed refill RESPIRATORY/CHEST: Symmetric, unlabored respirations. Clear to auscultation. Breath sounds equal bilaterally. No wheezes, rales, or rhonchi. GASTROINTESTINAL: Abdomen soft, no reaction to palpation, mildly distended. No hepato-splenomegaly, or palpable masses. No guarding. Bowel sounds diminished GENITOURINARY: Without palpable bladder distension. Abrams catheter in place with clear yellow urine MUSCULOSKELETAL: Extremities without clubbing, + trace edema. No joint tenderness or effusion noted. No calf tenderness. + mottling or clubbing. Prominent cyanosis on toes, finger tips most prominent R foot LYMPHATICS: No palpable cervical or supraclavicular adenopathy. NEUROLOGICAL: Sedated intubated, unresponsive PSYCHIATRIC: unable to assess Laboratory Laboratory Tests Test 03/13/17 03/14/17 03/14/17 03/14/17 22:39 04:16 08:59 09:05 Sodium Level 140 138 Potassium Level 5.9 4.8 Chloride Level 110 109 Carbon Dioxide Level 18.6 17.8 Anion Gap 11 11 Blood Urea Nitrogen 28 31 Creatinine 1.01 1.06 Estimat Glomerular Filtration 52 49 Rate Random Glucose 111 118 Lactic Acid Level 2.4 1.9 Calcium Level 8.7 8.6 Total Bilirubin 0.7 0.8 Aspartate Amino Transf 58 52 (AST/SGOT) Alanine Aminotransferase 62 59 (ALT/SGPT) Alkaline Phosphatase 52 52 Total Protein 5.4 5.1 Albumin 2.5 2.4 White Blood Count 14.4 12.8 Red Blood Count 2.33 2.25 Hemoglobin 7.4 7.1 Hematocrit 22.6 21.9 Mean Corpuscular Volume 96.9 97.2 Mean Corpuscular Hemoglobin 31.6 31.7 Mean Corpuscular Hemoglobin 32.6 32.6 Concent Red Cell Distribution Width 16.0 15.8 Platelet Count 265 247 Mean Platelet Volume 8.1 8.4 Neutrophils (%) (Auto) 81.9 80.5 Lymphocytes (%) (Auto) 9.0 10.4 Monocytes (%) (Auto) 8.6 8.6 Eosinophils (%) (Auto) 0.0 0.1 Basophils (%) (Auto) 0.5 0.4 Neutrophils # (Auto) 11.7 10.3 Lymphocytes # (Auto) 1.3 1.3 Monocytes # (Auto) 1.2 1.1 Eosinophils # (Auto) 0.0 0.0 Basophils # (Auto) 0.1 0.0 CBC Comment DIFF FINAL DIFF FINAL Differential Comment Magnesium Level 1.5 Random Vancomycin Level 11.8 Urine Color YELLOW Urine Turbidity CLOUDY Urine pH 6.0 Urine Specific [place] 1.015 Urine Protein 100 Urine Glucose (UA) NEG Urine Ketones NEG Urine Occult Blood LARGE Urine Nitrite NEG Urine Bilirubin NEG Urine Urobilinogen 0.2 Urine Leukocyte Esterase NEG Urine RBC 101 Urine WBC Urine WBC Clumps MANY Urine Squamous Epithelial 3 Cells Urine Bacteria OCC Urine Hyaline Casts 5 Urine Mucus FEW Urine Yeast (Budding) MANY Microscopic Urinalysis Comment CATH-CULTURE IND Digoxin Level 1.4 Test 03/14/17 03/14/17 11:49 11:51 Blood Type O NEGATIVE O NEGATIVE Antibody Screen NEGATIVE Crossmatch Leukocyte-Reduced Red Blood Cells Blood Bank Comment Date/Time Procedure Status Source Growth 03/14/17 13:17 Stool Occult Blood (DANIAL) Received Stool Stool Pending 03/14/17 08:59 Urine Culture Received Urine Catheterized Urine Pending 03/14/17 08:52 Gram Stain - Final Resulted Sputum Endotracheal 03/14/17 08:52 Sputum Culture Resulted Sputum Endotracheal Pending 03/14/17 08:22 Gram Stain Received Sputum Endotracheal Pending 03/14/17 08:22 Sputum Culture Received Sputum Endotracheal Pending 03/12/17 05:24 Aerobic Blood Culture - Preliminary Resulted Blood Peripheral NO GROWTH IN 2 DAYS 03/12/17 05:24 Anaerobic Blood Culture - Preliminary Resulted Blood Peripheral NO GROWTH IN 2 DAYS 03/11/17 13:40 Urine Culture - Final Complete Urine Catheterized Urine Soledad Albicans Enterococcus Faecium Vre Result Diagram: 03/14/17 0905 03/14/17 0416 Imaging Last Impressions Chest X-Ray 03/14/17 0600 Signed Impressions: Service Date/Time: Tuesday, March 14, 2017 03:48 - CONCLUSION: 1. Cardiomegaly and findings of vascular congestion without overt failure. Bilateral lower lobe atelectasis versus pneumonia. This is new when compared with the prior exam. Harvey Cheng MD Head CT 03/12/17 0000 Signed Impressions: Service Date/Time: Sunday, March 12, 2017 13:00 - CONCLUSION: 1. Cerebral atrophy and chronic ischemic small vessel vasculopathy. Evans Augustin MD Assessment and Plan Assessment and Plan NSTEMI Heart hfailure with cardiogenic shock VRE UTI Candiduria Acute VDRF Bilateral lower lobe atelectasis versus early pneumonia - clx P Critically ill and unstable Abx associated diarrhea, C.diff P REC's: cont zosyn, fluconazole dc vancomycin start zyvox fu urine, blood and sputum clx Discussed Condition With Tracie Hayes RN. MD Mar 14, 2017 14:04
--- NOTE | 2017-03-14 14:32 | HHI.HCPN ---
Reason for visit a. To assist with evaluation and management of symptoms including: Shortness of breath and debility. b. To assist medical decision maker(s) with: better understanding of current medical conditions; weighing benefits/burdens of medical treatment options; making medical treatment decisions. . (Amy Turk) Subjective/Interval History Mrs. Franco is a 82-year-old female with a past medical history of dementia originally diagnosed in 2013, recurrent UTIs, urinary retention, hypertension and atrial fibrillation. Patient presented to ED on 03/11/17 via EMS for evaluation of chest pain. Laboratory workup indicating troponin 4.43 and BNP 1330. EKG revealing sinus tachycardia. Patient was transfer to [facility] for further management of non-STEMI. She was seen by Dr. Keys in the ICU, not a candidate for any invasive procedures. Medical management recommended. Echocardiogram showing EF of 20% from the echo on 03/04/17 showing EF of 45%. In addition, moderate to severe mitral valve regurgitation. Clinical course complicated by severe cardiac shock, intubation and mechanical ventilation in addition to vasopressors. Palliative care has been consulted for further clarifications of goals of care given patient's worsening clinical condition and poor prognosis. Patient seen in ICU. She remained orally intubated on mechanical ventilation. Unresponsive to verbal or tactile stimuli, sedated with Versed. Sedation was decreased secondary to hypotension. Remains on Neftali-Synephrine and Milrinone drip. Breathing over the event. Currently at 40% FiO2. Chest x-ray today revealing cardiomegaly and findings of vascular congestion, bilateral lower lobe atelectasis vs pneumonia. Hemoglobin 7.1 from 9.1 on arrival. GI consulted. Patient with history of GI bleed in December 2016. Pending transfusion of packed red blood cells. Max temperature today 99.0. BUN/creatinine 31/ 1.06. ID consulted. Poor prognosis secondary to MSOF, sepsis, cardiogenic shock. Case discussed with Dr. Griffiths and bedside RN. No family at bedside during my visit. Telephone call to patient's daughter [phone], left message in voicemail. Will continue to follow-up. . Family/friend interactions No family at bedside during my visit. . (Amy Turk) Advance Directives Living Will: Never completed Health Care Surrogate: Completed, but not made available Durable Power of [employer]: Completed, but not made available (Amy Turk) Advance Directive Specifics Health Care Surrogate(s): As per daughter Cata Yin, she is the designated healthcare surrogate. Pending designation of healthcare surrogate/living will. . Documented care wishes: Pending copy of living will. . Significant change in goals: Full code. Goals remain aggressive. . (Amy Turk) Objective Vital Signs Date Time Temp Pulse Resp B/P Pulse Ox O2 Delivery O2 Flow Rate FiO2 03/14/17 12:00 99.0 92 23 90/55 100 104/53 03/14/17 12:00 40 03/14/17 12:00 92 03/14/17 11:27 100 40 03/14/17 11:00 96 03/14/17 10:00 96 03/14/17 09:00 95 03/14/17 08:08 100 40 03/14/17 08:00 95 03/14/17 08:00 98.8 95 24 84/52 83 98/50 03/14/17 08:00 40 03/14/17 07:00 92 03/14/17 06:00 97 03/14/17 04:00 40 03/14/17 04:00 99.4 102 25 89/55 100 103/54 03/14/17 04:00 102 03/14/17 03:43 100 40 03/14/17 02:00 103 03/14/17 00:38 92 40 03/14/17 00:00 111 03/14/17 00:00 99.8 111 19 88/55 100 93/50 03/14/17 00:00 40 03/13/17 22:00 126 03/13/17 20:04 100 40 03/13/17 20:04 100 Ventilator 40 03/13/17 20:00 122 03/13/17 20:00 40 03/13/17 20:00 100.0 122 20 91/55 97 98/56 03/13/17 18:00 112 03/13/17 16:48 100 40 03/13/17 16:00 87 03/13/17 16:00 40 03/13/17 16:00 97.0 87 14 106/56 100 115/53 Intake & Output 03/14/17 03/14/17 07:00 19:00 Intake Total 1868 ml Output Total 625 ml Balance 1243 ml IV Total 1868 ml Output Urine Total 625 ml # Bowel Movements 1 Physical Exam CONSTITUTIONAL/GENERAL: This is an elderly, frail female who is orally intubated on mechanical ventilation. Increased work of breathing on mechanical ventilation. TUBES/LINES/DRAINS: PIV's, ETT, central line to left upper chest, SCDs, Abrams catheter, bilateral soft wrist restraints. SKIN: No jaundice, rashes, or lesions. Ecchymoses on upper extremities. No wounds seen anteriorly. Skin temperature appropriate. Not diaphoretic. HEAD: Atraumatic. Normocephalic. EYES: Pupils equal and round and reactive, sluggish. No scleral icterus. No injection or drainage. ENT: Unable to assess hearing secondary to clinical condition. Nose without bleeding or purulent drainage. Moist oral mucosa. NECK: Trachea midline. Supple. CARDIOVASCULAR: regular rate and rhythm, systolic murmur. Very faint peripheral pulses. Mottling of the toes and fingers. RESPIRATORY/CHEST: intubated on mechanical ventilation. Increased work of breathing on vent support, RR mid 20's. Breath sounds diminished bilaterally. GASTROINTESTINAL: Abdomen soft, nondistended. Bowel sounds present. GENITOURINARY: Without palpable bladder distension. Abrams catheter in place. MUSCULOSKELETAL: Mottling of the toes and fingers noted. NEUROLOGICAL: Unresponsive to verbal or tactile stimuli. No purposeful movement noted. PSYCHIATRIC: Unable to evaluate secondary to clinical condition. . (Amy Turk) Diagnostic Tests Laboratory Laboratory Tests Test 03/11/17 03/11/17 03/12/17 03/12/17 15:00 21:29 03:40 12:20 White Blood Count 13.6 TH/MM3 13.8 TH/MM3 (4.0-11.0) (4.0-11.0) Red Blood Count 3.15 MIL/MM3 3.11 MIL/MM3 (4.00-5.30) (4.00-5.30) Hemoglobin 10.1 GM/DL 9.9 GM/DL (11.6-15.3) (11.6-15.3) Hematocrit 30.5 % 30.3 % (35.0-46.0) (35.0-46.0) Mean Corpuscular Volume 97.0 FL 97.4 FL (80.0-100.0) (80.0-100.0) Mean Corpuscular Hemoglobin 32.2 PG 32.0 PG (27.0-34.0) (27.0-34.0) Mean Corpuscular Hemoglobin 33.2 % 32.8 % Concent (32.0-36.0) (32.0-36.0) Red Cell Distribution Width 15.5 % 15.4 % (11.6-17.2) (11.6-17.2) Platelet Count 387 TH/MM3 424 TH/MM3 (150-450) (150-450) Mean Platelet Volume 8.9 FL 8.8 FL (7.0-11.0) (7.0-11.0) Prothrombin Time 11.8 SEC (9.8-11.6) Prothromb Time International 1.1 RATIO Ratio Activated Partial 68.6 SEC 59.7 SEC 53.9 SEC Thromboplast Time (24.3-30.1) (24.3-30.1) (24.3-30.1) Lactic Acid Level 2.7 mmol/L 9.8 mmol/L (0.4-2.0) (0.4-2.0) Phosphorus Level 2.6 MG/DL (2.5-4.9) Magnesium Level 1.6 MG/DL 1.7 MG/DL (1.5-2.5) (1.5-2.5) Troponin I 5.91 NG/ML 5.25 NG/ML (0.02-0.05) (0.02-0.05) Neutrophils (%) (Auto) 72.7 % (16.0-70.0) Lymphocytes (%) (Auto) 21.7 % (9.0-44.0) Monocytes (%) (Auto) 4.5 % (0.0-8.0) Eosinophils (%) (Auto) 0.3 % (0.0-4.0) Basophils (%) (Auto) 0.8 % (0.0-2.0) Neutrophils # (Auto) 10.0 TH/MM3 (1.8-7.7) Lymphocytes # (Auto) 3.0 TH/MM3 (1.0-4.8) Monocytes # (Auto) 0.6 TH/MM3 (0-0.9) Eosinophils # (Auto) 0.0 TH/MM3 (0-0.4) Basophils # (Auto) 0.1 TH/MM3 (0-0.2) CBC Comment DIFF FINAL Differential Comment Sodium Level 146 MEQ/L (136-145) Potassium Level 3.1 MEQ/L (3.5-5.1) Chloride Level 112 MEQ/L (98-107) Carbon Dioxide Level 24.2 MEQ/L (21.0-32.0) Anion Gap 10 MEQ/L (5-15) Blood Urea Nitrogen 17 MG/DL (7-18) Creatinine 0.81 MG/DL (0.50-1.00) Estimat Glomerular Filtration 67 ML/MIN (>89) Rate Random Glucose 119 MG/DL (74-106) Calcium Level 8.7 MG/DL (8.5-10.1) Total Bilirubin 0.4 MG/DL (0.2-1.0) Aspartate Amino Transf 84 U/L (15-37) (AST/SGOT) Alanine Aminotransferase 32 U/L (10-53) (ALT/SGPT) Alkaline Phosphatase 63 U/L (45-117) Total Protein 5.9 GM/DL (6.4-8.2) Albumin 2.4 GM/DL (3.4-5.0) Test 03/12/17 03/12/17 03/13/17 03/13/17 13:37 17:10 04:00 22:39 White Blood Count 21.0 TH/MM3 18.5 TH/MM3 (4.0-11.0) (4.0-11.0) Red Blood Count 3.27 MIL/MM3 2.90 MIL/MM3 (4.00-5.30) (4.00-5.30) Hemoglobin 10.1 GM/DL 9.2 GM/DL (11.6-15.3) (11.6-15.3) Hematocrit 32.3 % 27.7 % (35.0-46.0) (35.0-46.0) Mean Corpuscular Volume 98.7 FL 95.6 FL (80.0-100.0) (80.0-100.0) Mean Corpuscular Hemoglobin 30.8 PG 31.9 PG (27.0-34.0) (27.0-34.0) Mean Corpuscular Hemoglobin 31.2 % 33.3 % Concent (32.0-36.0) (32.0-36.0) Red Cell Distribution Width 15.7 % 15.3 % (11.6-17.2) (11.6-17.2) Platelet Count 480 TH/MM3 408 TH/MM3 (150-450) (150-450) Mean Platelet Volume 8.5 FL 8.0 FL (7.0-11.0) (7.0-11.0) Neutrophils (%) (Auto) 93.0 % 84.0 % (16.0-70.0) (16.0-70.0) Lymphocytes (%) (Auto) 3.0 % 8.9 % (9.0-44.0) (9.0-44.0) Monocytes (%) (Auto) 3.7 % (0.0-8.0) 6.9 % (0.0-8.0) Eosinophils (%) (Auto) 0.1 % (0.0-4.0) 0.0 % (0.0-4.0) Basophils (%) (Auto) 0.2 % (0.0-2.0) 0.2 % (0.0-2.0) Neutrophils # (Auto) 19.5 TH/MM3 15.5 TH/MM3 (1.8-7.7) (1.8-7.7) Lymphocytes # (Auto) 0.6 TH/MM3 1.6 TH/MM3 (1.0-4.8) (1.0-4.8) Monocytes # (Auto) 0.8 TH/MM3 1.3 TH/MM3 (0-0.9) (0-0.9) Eosinophils # (Auto) 0.0 TH/MM3 0.0 TH/MM3 (0-0.4) (0-0.4) Basophils # (Auto) 0.0 TH/MM3 0.0 TH/MM3 (0-0.2) (0-0.2) CBC Comment AUTO DIFF DIFF FINAL Differential Comment Blood Gas Puncture Site ART LINE Blood Gas Patient Temperature 98.6 Blood Gas HCO3 19 mmol/L (22-26) Blood Gas Base Excess -6.1 mmol/L (-2-2) Blood Gas Oxygen Saturation 95 % (90-100) Arterial Blood pH 7.34 (7.380-7.420) Arterial Blood Partial 35 mmHg (38-42) Pressure CO2 Arterial Blood Partial 95 mmHg Pressure O2 (61-120) Arterial Blood Oxygen Content 13.3 Vol % (12.0-20.0) Arterial Blood 1.5 % (0-4) Carboxyhemoglobin Arterial Blood Methemoglobin 1.2 % (0-2) Blood Gas Hemoglobin 9.9 G/DL (12.0-16.0) Oxygen Delivery Device VENTILATOR Blood Gas Ventilator Setting 500/14/5PEEP Blood Gas Inspired Oxygen 40 % Sodium Level 143 MEQ/L 140 MEQ/L (136-145) (136-145) Potassium Level 3.2 MEQ/L 5.9 MEQ/L (3.5-5.1) (3.5-5.1) Chloride Level 110 MEQ/L 110 MEQ/L (98-107) (98-107) Carbon Dioxide Level 21.6 MEQ/L 18.6 MEQ/L (21.0-32.0) (21.0-32.0) Anion Gap 11 MEQ/L (5-15) 11 MEQ/L (5-15) Blood Urea Nitrogen 27 MG/DL (7-18) 28 MG/DL (7-18) Creatinine 0.99 MG/DL 1.01 MG/DL (0.50-1.00) (0.50-1.00) Estimat Glomerular Filtration 53 ML/MIN (>89) 52 ML/MIN (>89) Rate Random Glucose 170 MG/DL 111 MG/DL (74-106) (74-106) Calcium Level 8.7 MG/DL 8.7 MG/DL (8.5-10.1) (8.5-10.1) Magnesium Level 1.4 MG/DL (1.5-2.5) Total Bilirubin 0.4 MG/DL 0.7 MG/DL (0.2-1.0) (0.2-1.0) Aspartate Amino Transf 159 U/L (15-37) 58 U/L (15-37) (AST/SGOT) Alanine Aminotransferase 90 U/L (10-53) 62 U/L (10-53) (ALT/SGPT) Alkaline Phosphatase 57 U/L (45-117) 52 U/L (45-117) Total Protein 5.2 GM/DL 5.4 GM/DL (6.4-8.2) (6.4-8.2) Albumin 2.1 GM/DL 2.5 GM/DL (3.4-5.0) (3.4-5.0) Lactic Acid Level 2.4 mmol/L (0.4-2.0) Test 03/14/17 03/14/17 03/14/17 03/14/17 04:16 08:59 09:05 11:49 White Blood Count 14.4 TH/MM3 12.8 TH/MM3 (4.0-11.0) (4.0-11.0) Red Blood Count 2.33 MIL/MM3 2.25 MIL/MM3 (4.00-5.30) (4.00-5.30) Hemoglobin 7.4 GM/DL 7.1 GM/DL (11.6-15.3) (11.6-15.3) Hematocrit 22.6 % 21.9 % (35.0-46.0) (35.0-46.0) Mean Corpuscular Volume 96.9 FL 97.2 FL (80.0-100.0) (80.0-100.0) Mean Corpuscular Hemoglobin 31.6 PG 31.7 PG (27.0-34.0) (27.0-34.0) Mean Corpuscular Hemoglobin 32.6 % 32.6 % Concent (32.0-36.0) (32.0-36.0) Red Cell Distribution Width 16.0 % 15.8 % (11.6-17.2) (11.6-17.2) Platelet Count 265 TH/MM3 247 TH/MM3 (150-450) (150-450) Mean Platelet Volume 8.1 FL 8.4 FL (7.0-11.0) (7.0-11.0) Neutrophils (%) (Auto) 81.9 % 80.5 % (16.0-70.0) (16.0-70.0) Lymphocytes (%) (Auto) 9.0 % 10.4 % (9.0-44.0) (9.0-44.0) Monocytes (%) (Auto) 8.6 % (0.0-8.0) 8.6 % (0.0-8.0) Eosinophils (%) (Auto) 0.0 % (0.0-4.0) 0.1 % (0.0-4.0) Basophils (%) (Auto) 0.5 % (0.0-2.0) 0.4 % (0.0-2.0) Neutrophils # (Auto) 11.7 TH/MM3 10.3 TH/MM3 (1.8-7.7) (1.8-7.7) Lymphocytes # (Auto) 1.3 TH/MM3 1.3 TH/MM3 (1.0-4.8) (1.0-4.8) Monocytes # (Auto) 1.2 TH/MM3 1.1 TH/MM3 (0-0.9) (0-0.9) Eosinophils # (Auto) 0.0 TH/MM3 0.0 TH/MM3 (0-0.4) (0-0.4) Basophils # (Auto) 0.1 TH/MM3 0.0 TH/MM3 (0-0.2) (0-0.2) CBC Comment DIFF FINAL DIFF FINAL Differential Comment Sodium Level 138 MEQ/L (136-145) Potassium Level 4.8 MEQ/L (3.5-5.1) Chloride Level 109 MEQ/L (98-107) Carbon Dioxide Level 17.8 MEQ/L (21.0-32.0) Anion Gap 11 MEQ/L (5-15) Blood Urea Nitrogen 31 MG/DL (7-18) Creatinine 1.06 MG/DL (0.50-1.00) Estimat Glomerular Filtration 49 ML/MIN (>89) Rate Random Glucose 118 MG/DL (74-106) Calcium Level 8.6 MG/DL (8.5-10.1) Magnesium Level 1.5 MG/DL (1.5-2.5) Total Bilirubin 0.8 MG/DL (0.2-1.0) Aspartate Amino Transf 52 U/L (15-37) (AST/SGOT) Alanine Aminotransferase 59 U/L (10-53) (ALT/SGPT) Alkaline Phosphatase 52 U/L (45-117) Total Protein 5.1 GM/DL (6.4-8.2) Albumin 2.4 GM/DL (3.4-5.0) Random Vancomycin Level 11.8 COMMENT Urine Color YELLOW (YELLW/STRAW) Urine Turbidity CLOUDY (CLEAR) Urine pH 6.0 (5.0-8.5) Urine Specific [place] 1.015 (1.002-1.035) Urine Protein 100 mg/dL (NEG-TRACE) Urine Glucose (UA) NEG mg/dL (NEG) Urine Ketones NEG mg/dL (NEG) Urine Occult Blood LARGE (NEG) Urine Nitrite NEG (NEG) Urine Bilirubin NEG (NEG) Urine Urobilinogen 0.2 MG/DL (LESS THAN 2.0) Urine Leukocyte Esterase NEG (NEG) Urine RBC 101 /hpf (0-3) Urine WBC /hpf (0-5) Urine WBC Clumps MANY (NONE) Urine Squamous Epithelial 3 /hpf (0-5) Cells Urine Bacteria OCC /hpf (NONE) Urine Hyaline Casts 5 /lpf (RARE) Urine Mucus FEW /lpf (OCC) Urine Yeast (Budding) MANY (NONE) Microscopic Urinalysis Comment CATH-CULTURE IND Lactic Acid Level 1.9 mmol/L (0.4-2.0) Digoxin Level 1.4 NG/ML (0.8-2.0) Blood Type O NEGATIVE Antibody Screen NEGATIVE Crossmatch Leukocyte-Reduced Red Blood Cells Blood Bank Comment Test 03/14/17 11:51 Blood Type O NEGATIVE (Amy Turk) Result Diagram: 03/14/17 0905 03/14/17 0416 Microbiology Microbiology Date/Time Procedure Status Source Growth 03/12/17 03:40 Aerobic Blood Culture - Preliminary Resulted Blood Peripheral NO GROWTH IN 2 DAYS 03/12/17 03:40 Anaerobic Blood Culture - Preliminary Resulted Blood Peripheral NO GROWTH IN 2 DAYS 03/12/17 05:24 Aerobic Blood Culture - Preliminary Resulted Blood Peripheral NO GROWTH IN 2 DAYS 03/12/17 05:24 Anaerobic Blood Culture - Preliminary Resulted Blood Peripheral NO GROWTH IN 2 DAYS 03/14/17 08:22 Gram Stain Received Sputum Endotracheal Pending 03/14/17 08:22 Sputum Culture Received Sputum Endotracheal Pending 03/14/17 08:52 Gram Stain - Final Resulted Sputum Endotracheal 03/14/17 08:52 Sputum Culture Resulted Sputum Endotracheal Pending 03/14/17 08:59 Urine Culture Received Urine Catheterized Urine Pending 03/14/17 13:17 Stool Occult Blood (DANIAL) Received Stool Stool Pending Imaging Last 24 hours Impressions Chest X-Ray 03/14/17 0600 Signed Impressions: Service Date/Time: Friday, March 14, 2017 03:48 - CONCLUSION: 1. Cardiomegaly and findings of vascular congestion without overt failure. Bilateral lower lobe atelectasis versus pneumonia. This is new when compared with the prior exam. Harvey Cheng MD Procedures * 03/12/17 -intubation * 03/12/17 -central line placement . (Amy Turk) Assessment and Plan Disease Oriented Problem List: (1) Severe sepsis (2) Lactic acidosis (3) Encephalopathy acute (4) Urinary tract infection (5) NSTEMI (non-ST elevation myocardial infarction) (6) CHF (congestive heart failure) (7) Dementia (8) Atrial fibrillation Symptom Scale: (1) Shortness of breath 0-10 Scale: Unable to quantify Comment: Remains orally intubated on mechanical ventilation. (2) Debility 0-10 Scale: Unable to quantify Comment: Progressive, worsening since December. Pertinent Non-Medical Issues Psychosocial: . Originally from [place]. has 2 daughters. Spiritual: Yazdanism oliva. Legal: Daughter reports that advance directives have been completed. Pending copy. Ethical issues impacting care: Patient unable to participate in medical decision -making. Pending copy of living will and designation of healthcare surrogate. Patient has 2 daughters, daughter Cata claims that she is the designated healthcare surrogate. Pending copy of documents. . Important Contacts Daughter Cata Yin & Family friend Krsiten Jolly [phone]. . Prognosis Mrs. Franco is a 82-year-old female with a past medical history of dementia originally diagnosed in 2013, recurrent UTIs, urinary retention, hypertension and atrial fibrillation. Patient with recent prolonged hospitalizations since December 2016. Admitted secondary to non-STEMI. Clinical course complicated by septic/cardiogenic shock, acute respiratory failure, lactic acidosis, congestive heart failure. Very poor prognosis for surviving this hospitalization given her multiple chronic comorbidities, recent prolonged acute hospitalizations, acute events, profound physical deconditioning and advanced age. . Code Status: Full Code Plan * CODE STATUS: Daughter electing for patient to remain FULL code. Risks and limitations of CPR were discussed in great detail with daughter given patient's worsening clinical condition. * HEALTHCARE DECISION-MAKING: Patient unable to participate in medical decision- making secondary to clinical condition, intubated on mechanical ventilation. Daughter Cata Yin presents herself as pt's designated healthcare surrogate , pending copy of designation/living will. This has been requested to José Miguel Cook as per daughter's request, no records found. In the absence of designation of healthcare surrogate, proxy decision-making falls to the majority of patient's children for which she has 2 daughters. Daughter Cata not cooperating in providing sisters name or contact information, referral to case finisher for [employer] report made. * GOALS OF CARE: Daughter electing to continue aggressive medical management to include FULL code, with the understanding that patient's clinical condition is critical secondary to MSOF, cardiogenic shock. Now with sepsis and likely GI bleed requiring blood transfusion. Palliative care attempting to reach daughter for continuation of goals of care conversation, left message in voicemail. Will continue to follow-up. * SYMPTOMS: = Shortness of breath, remains orally intubated on mechanical ventilation. Patient currently on Versed for sedation. = Debility, progressive and worsened since December 2016. * Case discussed with Dr. Griffiths and bedside RN Rupal/Angelita. * Palliative care contact information has been provided to patient's daughter Cata. * Palliative care will continue to follow-up for further clarifications of goals of care. . (Amy Turk) Time Spent Total Floor Time (mins): 31 (Total time to include review medical records, physical exam, case discussion with Dr. Griffiths and bedside RN. Attempts to contact patient's daughter via telephone.) >50% Counseling/Coord of Care: Yes (Amy Turk) Attestation To help prompt me to consider important information that might be impacting today's encounter and assessment, information from prior notes written by myself or my colleagues may have been "brought forward" into today's note. My signature on this note, however, is an attestation that I personally performed the exam, history, and/or decision-making noted today, and, unless otherwise indicated, the interactions with patient, family, and staff as well as the review of records all occurred today. I also attest that the listed assessment and stated plan reflect my best clinical judgment today based on the combination of historical information, prior notes, and today's exam/ interactions. When time spent is documented, it refers only to time spent today by the signer, or if indicated, combined time spent today by collaborating physician/nurse practitioner. (Amy Turk) Collaborating MD Comments Chart reviewed. Case discussed with palliative care AUTOGLAZIER. Above note reviewed and I concur. . (Edmar Cabrera MD) Amy Turk Mar 14, 2017 14:32 Edmar Cabrera MD Jun 01, 2017 10:38
[2017-03-14] MEDS: HYDROCORTISONE SOD SUCCINATE 100 MG VIAL IV PUSH SCH ×2 (14:46→21:16)
[2017-03-14] MEDS: LINEZOLID 600 MG PREMIX 300 ML IV SCH (14:46)
[2017-03-14] MEDS: MILRINONE INJ 20 MG in SODIUM CHLORIDE 0.9% INJ 80 ML IV SCH (15:41)
[2017-03-14] MEDS ORDERED: VANCOMYCIN 1,000 MG/NS 250 ML IV SCH ×2 (16:00)
[2017-03-14 16:33] LABS: C. DIFF EPI 027 PRESUMPTIVE NEGATIVE (NEGATIVE)
[2017-03-14 19:28] LABS: HEMATOCRIT 29.2 % (35.0-46.0); REVIEW FLAG FINAL
[2017-03-14] MEDS: DONEPEZIL HCL 5 MG TAB PO SCH (21:00)
[2017-03-14] MEDS: DIGOXIN 0.25 MG TAB PO SCH (21:16)
[2017-03-14] MEDS: PANTOPRAZOLE SODIUM 40 MG VIAL IV PUSH SCH (21:16)
[2017-03-15] VITALS (17 sets, daily range): BP systolic 103–135; BP diastolic 57–70; PULSE 78–102; RESP 14–17; TEMP 97.6–98.1; O2SAT 100
[2017-03-15] MEDS: INSULIN NovoLIN REGULAR SUPPLEMENTAL SCALE SQ SCH ×4 (03:00→21:00)
[2017-03-15] MEDS: LINEZOLID 600 MG PREMIX 300 ML IV SCH ×2 (03:12→15:00)
[2017-03-15] MEDS: RESP: ALBUTEROL 2.5 MG/IPRATROPIUM 0.5 MG NEB (SCH) NEB ×4 (03:15→20:49)
[2017-03-15 05:16] LABS: BASOPHIL % 0.2 % (0.0-2.0); EOSINOPHIL % 0.1 % (0.0-4.0); HEMATOCRIT 30.6 % (35.0-46.0); HEMO FLAGS DIFF FINAL; LYMPH % 5.2 % (9.0-44.0); LYMPHOCYTE # 0.5 TH/MM3 (1.0-4.8); MEAN CELL VOLUME 94.4 FL (80.0-100.0); MEAN CORPUSCULAR HEMOGLOBIN 31.9 PG (27.0-34.0); MEAN CORPUSCULAR HGB CONC 33.8 % (32.0-36.0); MONO % 4.3 % (0.0-8.0); NEUT % 90.2 % (16.0-70.0); PLATELET COUNT 226 TH/MM3 (150-450); RED BLOOD COUNT 3.24 MIL/MM3 (4.00-5.30); RED CELL DISTRIBUTION WIDTH 15.9 % (11.6-17.2)
[2017-03-15] MEDS: HYDROCORTISONE SOD SUCCINATE 100 MG VIAL IV PUSH SCH ×3 (05:16→21:36)
[2017-03-15] MEDS: PIPERACIL-TAZO 3.375 GM PREMIX 50 ML IV SCH ×3 (05:16→17:00)
[2017-03-15] MEDS: CHLORHEXIDINE GLUCONATE 2 % 1 PACK (2 CLOTHS) TOP SCH (05:18)
[2017-03-15 05:44] LABS: ALKALINE PHOSPHATASE 62 U/L (45-117); ALT (GPT) 53 U/L (10-53); TOTAL BILIRUBIN ADULT 0.9 MG/DL (0.2-1.0)
[2017-03-15 06:07] LABS: ANION GAP 12 MEQ/L (5-15); AST (GOT) 43 U/L (15-37); BICARBONATE 17.7 MEQ/L (21.0-32.0); BLOOD UREA NITROGEN 31 MG/DL (7-18); CHLORIDE 105 MEQ/L (98-107); GLOMERULAR FILTRATION RATE 41 ML/MIN (>89); MAGNESIUM 1.4 MG/DL (1.5-2.5); POTASSIUM 4.2 MEQ/L (3.5-5.1); SODIUM (NA) 135 MEQ/L (136-145)
--- NOTE | 2017-03-15 06:59 | HHI.CCPN ---
Subjective Remarks/Hospital Course Patient is an 82-year-old female with past medical history significant for recurrent UTIs, atrial fibrillation, hypertension, dyslipidemia, dementia who was transferred from [place] emergency department after being diagnosed for NSTEMI. She presented with chest pain and EKG showed sinus tachycardia, and troponin was elevated at 4.43. Patient was given aspirin (by EMS) and started on IV heparin infusion. Patient was transferred to [facility] ICU per Dr. Keys's request. Other abnormal labs include BNP of 1330 and potassium of 3. Previous echo showed an ejection fraction of 45%. I evaluated the patient in the ICU. Appears in moderate distress, tachypneic, tachycardic, but denies chest pain (when asked in [place] by RN). Patient was seen by Dr. Keys in the ICU, not a candidate for cardiac catheterization on interventions at this time. 2-D echo is pending. UA shows evidence of UTI. Started on cefepime and Diflucan (yeast present in UA). Repeat troponin and lactic acid pending at this time. SUBJ 03/12: I rounded on patient at about 0830 AM, patient was communicative tachypneic but not in severe distress. I was emergently called to the bedside at 10:30 AM patient was unresponsive agonal breathing with blood pressure 60/29 , bradycardic. Emergently started on dopamine. Patient was not protecting airway and I emergently intubated and placed on mechanical ventilation. An emergency left subclavian central line also placed. Levophed was added due to persistent hypotension. Patient appears to be in severe cardiogenic shock. EF 15 -20% down from 40% on 03/04/17. Patient also has moderate to severe MR, moderate to severe TR with moderate to severe pulmonary hypertension. I have discussed with Dr. Keys, she does not think patient is a candidate for any invasive therapy due to advanced age and comorbidities including dementia. I have updated daughter Cata 03/13: Remains intubated sedated critically ill. Remains on 3 pressors (dopamine , Neftali-Synephrine, milrinone). Urine output diminishing. Patient is in multiorgan failure prognosis poor. Family wants to continue full aggressive care palliative care is following. Urine culture showing group D enterococcus and Soledad. Cefepime discontinued Zosyn started along with vancomycin and continue Diflucan 03/14 Patient is sedated with versed and intubated. On Neosyn 200 mics and Milrinone. T: 100.0 last night. Off Dopamine 03/15 Patient remains intubated and sedated with Versed 5mg/hr, Nesoyn down 112 mics and on Milrinone. Afebrile. s/p transfusion 1unit PRBC yesterday. Objective Vital Signs Date Time Temp Pulse Resp B/P Pulse Ox O2 Delivery O2 Flow Rate FiO2 03/15/17 04:26 100 40 03/15/17 04:15 92 03/15/17 00:00 98.0 17 122/68 135/70 03/13/17 20:04 Ventilator 03/12/17 08:02 3.00 Intake and Output 03/14/17 03/14/17 03/15/17 08:00 16:00 00:00 Intake Total 650 ml 619 ml 786 ml Output Total 175 ml 600 ml 800 ml Balance 475 ml 19 ml -14 ml Result Diagram: 03/15/17 0410 03/15/17 0410 Other Results Laboratory Tests Test 03/14/17 03/14/17 03/14/17 03/14/17 08:59 09:05 11:49 11:51 Urine Color YELLOW Urine Turbidity CLOUDY Urine pH 6.0 Urine Specific [place] 1.015 Urine Protein 100 mg/dL Urine Glucose (UA) NEG mg/dL Urine Ketones NEG mg/dL Urine Occult Blood LARGE Urine Nitrite NEG Urine Bilirubin NEG Urine Urobilinogen 0.2 MG/DL Urine Leukocyte Esterase NEG Urine RBC 101 /hpf Urine WBC /hpf Urine WBC Clumps MANY Urine Squamous Epithelial 3 /hpf Cells Urine Bacteria OCC /hpf Urine Hyaline Casts 5 /lpf Urine Mucus FEW /lpf Urine Yeast (Budding) MANY Microscopic Urinalysis Comment CATH-CULTURE IND White Blood Count 12.8 TH/MM3 Red Blood Count 2.25 MIL/MM3 Hemoglobin 7.1 GM/DL Hematocrit 21.9 % Mean Corpuscular Volume 97.2 FL Mean Corpuscular Hemoglobin 31.7 PG Mean Corpuscular Hemoglobin 32.6 % Concent Red Cell Distribution Width 15.8 % Platelet Count 247 TH/MM3 Mean Platelet Volume 8.4 FL Neutrophils (%) (Auto) 80.5 % Lymphocytes (%) (Auto) 10.4 % Monocytes (%) (Auto) 8.6 % Eosinophils (%) (Auto) 0.1 % Basophils (%) (Auto) 0.4 % Neutrophils # (Auto) 10.3 TH/MM3 Lymphocytes # (Auto) 1.3 TH/MM3 Monocytes # (Auto) 1.1 TH/MM3 Eosinophils # (Auto) 0.0 TH/MM3 Basophils # (Auto) 0.0 TH/MM3 CBC Comment DIFF FINAL Differential Comment Lactic Acid Level 1.9 mmol/L Digoxin Level 1.4 NG/ML Blood Type O NEGATIVE O NEGATIVE Antibody Screen NEGATIVE Crossmatch Leukocyte-Reduced Red Blood Cells Blood Bank Comment Test 03/14/17 03/14/17 03/15/17 13:17 17:10 04:10 Stool C. difficile Toxin (PCR) NEGATIVE Stl C. difficile Toxin PRESUMPTIVE Epiderm 027 NEGATIVE Hemoglobin 9.9 GM/DL 10.3 GM/DL Hematocrit 29.2 % 30.6 % White Blood Count 10.0 TH/MM3 Red Blood Count 3.24 MIL/MM3 Mean Corpuscular Volume 94.4 FL Mean Corpuscular Hemoglobin 31.9 PG Mean Corpuscular Hemoglobin 33.8 % Concent Red Cell Distribution Width 15.9 % Platelet Count 226 TH/MM3 Mean Platelet Volume 9.6 FL Neutrophils (%) (Auto) 90.2 % Lymphocytes (%) (Auto) 5.2 % Monocytes (%) (Auto) 4.3 % Eosinophils (%) (Auto) 0.1 % Basophils (%) (Auto) 0.2 % Neutrophils # (Auto) 9.0 TH/MM3 Lymphocytes # (Auto) 0.5 TH/MM3 Monocytes # (Auto) 0.4 TH/MM3 Eosinophils # (Auto) 0.0 TH/MM3 Basophils # (Auto) 0.0 TH/MM3 CBC Comment DIFF FINAL Differential Comment Sodium Level 135 MEQ/L Potassium Level 4.2 MEQ/L Chloride Level 105 MEQ/L Carbon Dioxide Level 17.7 MEQ/L Anion Gap 12 MEQ/L Blood Urea Nitrogen 31 MG/DL Creatinine 1.25 MG/DL Estimat Glomerular Filtration 41 ML/MIN Rate Random Glucose 189 MG/DL Calcium Level 9.0 MG/DL Phosphorus Level 2.3 MG/DL Magnesium Level 1.4 MG/DL Total Bilirubin 0.9 MG/DL Aspartate Amino Transf 43 U/L (AST/SGOT) Alanine Aminotransferase 53 U/L (ALT/SGPT) Alkaline Phosphatase 62 U/L Total Protein 5.7 GM/DL Albumin 2.3 GM/DL Imaging Last Impressions Chest X-Ray 03/14/17 0600 Signed Impressions: Service Date/Time: Tuesday, March 14, 2017 03:48 - CONCLUSION: 1. Cardiomegaly and findings of vascular congestion without overt failure. Bilateral lower lobe atelectasis versus pneumonia. This is new when compared with the prior exam. Harvey Cheng MD Head CT 03/12/17 0000 Signed Impressions: Service Date/Time: Sunday, March 12, 2017 13:00 - CONCLUSION: 1. Cerebral atrophy and chronic ischemic small vessel vasculopathy. Evans Augustin MD Objective Remarks GENERAL: 82-year-old female acutely and chronically critically ill, on vent SKIN: Warm and dry. HEAD: Atraumatic. EYES: Pupils equal and round. No scleral icterus. ENT: No nasal bleeding or discharge. Orotracheally intubated NECK: Positive JVD CARDIOVASCULAR: Tachycardic, hypotensive. Systolic murmur at the apex. Remains on milrinone, dopamine and Neftali-Synephrine RESPIRATORY: Air entry equal bilaterally. Few basilar crackles GASTROINTESTINAL: Abdomen soft, non-tender, nondistended. NEUROLOGICAL: Intubated sedated. Occasionally opens eyes. Moving all extremities not following commands on sedation A/P Assessment and Plan NEURO: Acute encephalopathy Dementia Versed infusion for sedation, maintain ventilator synchrony. Daily sedation vacation. Monitor neuro status. Continue home Aricept Encephalopathy most likely secondary to metabolic causes RESP: Acute respiratory failure History of COPD Pulmonary artery hypertension Continue with vent support and keep sat >92% Ventilator bundle. DuoNeb scheduled and when necessary SBT daily as carley CV: NSTEMI Cardiogenic shock Acute systolic heart failure Lactic acidosis Ischemic cardiomyopathy with ejection fraction 15-20% Moderate to severe mitral and tricuspid regurgitation History of A. fib s/p 2.5L bolus 03/11. All IV fluids discontinued due to pulmonary edema Ejection fraction 15-20% , in comparison to echocardiogram on 03/04/17 EF 40% Wean down pressors ( On Neosyn 112 mics, Milrinone) keep MAP>65mmHg On stress dose steroids- HC 100 mg IV Q8 Arterial line And flow track monitoring Amiodarone 400mg Q12 started by Dr. Massimo, On Digoxin 0.25mg daily, Dig level: 1.4 Lactic acid trending down 1.9 03/14 GI: IV Protonix 40mg BID s/p transfusion 1unit PRBC, NPO, GI is following. Keep NPO might need EGD will defer to GI. : Monitor renal function , I/O's, electrolytes replacement per protocol. Cr: 1.25 today, UOP 1800 ml in 24 hrs. Will need Mg, Phos replacement today. s/p Bumex 1mg x1 yesterday ID: Severe sepsis UTI Urine culture growing Soledad and group D enterococcus(VRE) Continue abx( Zosyn, Diflucan, Zyvox) monitor for signs of infections ( Fever, WBC) ID is following Follow up sputum and urine cx from 03/14 HEME: Monitor CBC, CMP, coags s/p [id number] PRBC 03/14 ENDO: SSI for glycemic control Electrolyte replacement protocol PROPH: Bilateral lower extremity SCDs. SQ Heparin on hold for anemia requiring blood transfusion, Protonix LINES: Left subclavian central line, Right Femoral Art line- placed 03/12 CC time 30 min excluding procedures Palliative care following Deepthi Griffiths MD Mar 15, 2017 06:59
[2017-03-15] MEDS: CHLORHEXIDINE 0.12% (ORAL KIT) 15 ML CUP MT SCH ×2 (08:00→20:00)
[2017-03-15] MEDS: SODIUM PHOSPHATE INJ 30 MMOL in SODIUM CHLOR 0.9% 250 ML INJ 240 ML IV PRN (08:33)
[2017-03-15] MEDS: AMIODARONE 200 MG TAB OG-TUBE SCH ×2 (08:34→21:35)
[2017-03-15] MEDS: POTASSIUM CHLORIDE 10 MEQ CAP PO SCH (08:34)
[2017-03-15] MEDS: FLUCONAZOLE 100 MG TAB PO SCH (08:34)
[2017-03-15] MEDS: ASPIRIN 81 MG CHEW TAB CHEW SCH (08:34)
[2017-03-15] MEDS: DOCUSATE SODIUM 50 MG/SENNA 8.6 MG TAB PO SCH ×2 (08:34→21:36)
[2017-03-15] MEDS: PANTOPRAZOLE SODIUM 40 MG VIAL IV PUSH SCH ×2 (08:34→21:35)
--- NOTE | 2017-03-15 09:07 | PD.CARD.PN ---
Subjective Subjective Remarks vent Objective Medications Current Medications Medications (Trade) Dose Ordered Sig/Arlet Route Start Time Stop Time Status Last Admin Miscellaneous Information 1 [id number] XX 03/11/17 13:45 03/12/17 23:07 (Chlorhexidine 2% Cloth) 3 pack Taper DAILY@04 TOP 03/12/17 04:00 03/08/18 03:59 03/15/17 05:18 (Chlorhexidine 2% Cloth) 3 pack UNSCH PRN TOP 03/11/17 13:45 (Steph-Colace) 1 tab BID PO 03/11/17 21:00 03/15/17 08:34 (Milk Of Magnesia Liq) 30 ml Q12H PRN PO 03/11/17 13:45 (Senokot) 17.2 mg Q12H PRN PO 03/11/17 13:45 (Dulcolax Supp) 10 mg DAILY PRN RECTAL 03/11/17 13:45 (Lactulose Liq) 30 ml DAILY PRN PO 03/11/17 13:45 (Aspirin Chew) 81 mg DAILY CHEW 03/12/17 09:00 03/15/17 08:34 (Lanoxin) 0.25 mg HS PO 03/11/17 21:00 03/14/17 21:16 (Aricept) 5 mg HS PO 03/11/17 21:00 03/14/17 21:00 Potassium Chloride 10 meq 10 meq DAILY PO 03/12/17 09:00 03/15/17 08:34 Potassium Chloride 100 ml @ 50 mls/hr Q2H PRN IV 03/11/17 14:30 03/13/17 05:56 (KCl 20 Meq Premix Inj) 100 ml @ 50 mls/hr Q2H PRN IV 03/11/17 14:30 Potassium Bicarb/ Potassium Chloride 50 meq 50 meq UNSCH PRN PO 03/11/17 14:30 Potassium Chloride 100 ml @ 25 mls/hr UNSCH PRN IV 03/11/17 14:30 Potassium Chloride 100 ml @ 50 mls/hr Q2H PRN IV 03/11/17 14:30 (Magnesium Sulfate Inj/NS Inj) 100 ml @ 50 mls/hr UNSCH PRN IV 03/11/17 14:30 03/15/17 08:33 Magnesium Oxide 800 mg 800 mg UNSCH PRN PO 03/11/17 14:30 (Magnesium Sulfate Inj/NS Inj) 100 ml @ 50 mls/hr UNSCH PRN IV 03/11/17 14:30 Potassium Phosphate 2000 mg 2,000 mg Q4H PRN PO 03/11/17 14:30 (Sodium Phosphate Inj/NS 250 ml Inj) 250 ml @ 42 mls/hr UNSCH PRN IV 03/11/17 14:30 03/15/17 08:33 Potassium Phosphate 2000 mg 2,000 mg UNSCH PRN PO/TUBE 03/11/17 14:28 (Potassium Phosphate Inj/NS 250 ml Inj) 260 ml @ 42 mls/hr UNSCH PRN IV 03/11/17 14:28 (Diflucan) 100 mg DAILY PO 03/11/17 17:00 03/15/17 08:34 Haloperidol Lactate 2 mg 2 mg Q6H PRN IV 03/11/17 17:00 (DOPamine INJ PREMIX) 500 ml @ 6.075 mls/ hr TITRATE IV 03/12/17 10:45 03/13/17 11:18 Terbutaline Sulfate 1 mg 1 mg UNSCH PRN SQ 03/12/17 10:45 (Levophed-Dextrose Drip) 250 ml @ 0 mls/hr TITRATE IV 03/12/17 11:45 03/12/17 19:29 Chlorhexidine Gluconate 15 ml 15 ml BID@08,20 MT 03/12/17 20:00 03/15/17 08:00 Midazolam HCl 100 ml @ 0 mls/hr TITRATE IV 03/12/17 14:00 03/14/17 09:57 Milrinone Lactate 20 mg/Sodium Chloride 100 ml @ 6.07 mls/hr [id number] IV 03/12/17 13:59 03/14/17 15:41 (Neosynephrine Inj/D5W 500 ml Inj) 500 ml @ 0 mls/hr TITRATE IV 03/13/17 03:30 03/14/17 09:51 Amiodarone HCl 400 mg 400 mg Q12HR OG-TUBE 03/13/17 09:00 03/15/17 08:34 (Zosyn 3.375 Gm Premix) 50 ml @ 100 mls/hr Q6H IV 03/13/17 17:00 03/15/17 05:16 (Heparin Inj) 5,000 units Q12HR SQ 03/13/17 21:00 Hold 03/14/17 09:53 (D50w (Vial) Inj) 50 ml UNSCH PRN IV 03/14/17 08:30 (Glucagon Inj) 1 mg UNSCH PRN OTHER 03/14/17 08:30 (NovoLIN R SUPPLEMENTAL SCALE) 1 Q6H SQ 03/14/17 09:00 (Protonix Inj) 40 mg BID IV PUSH 03/14/17 21:00 03/15/17 08:34 Hydrocortisone Sodium Succinate 100 mg 100 mg Q8HR IV PUSH 03/14/17 14:30 03/15/17 05:16 (Zyvox 600 Mg Premix) 300 ml @ 300 mls/hr Q12H IV 03/14/17 15:00 03/15/17 03:12 Vital Signs / I&O Vital Signs Date Time Temp Pulse Resp B/P Pulse Ox O2 Delivery O2 Flow Rate FiO2 03/15/17 08:59 100 35 03/15/17 08:00 40 03/15/17 08:00 85 03/15/17 04:26 100 40 03/15/17 04:15 92 03/15/17 04:00 40 03/15/17 02:00 102 03/15/17 01:29 100 40 03/15/17 00:00 96 03/15/17 00:00 40 03/15/17 00:00 98.0 96 17 122/68 100 135/70 03/14/17 23:45 88 15 115/68 100 130/68 03/14/17 23:30 89 15 114/68 100 129/67 03/14/17 23:15 90 15 112/69 100 129/67 03/14/17 23:00 89 15 113/67 100 128/66 03/14/17 22:45 90 15 111/67 100 127/65 03/14/17 22:30 90 15 112/65 100 126/64 03/14/17 22:15 92 16 114/67 100 126/64 03/14/17 22:00 93 18 124/70 100 131/68 03/14/17 22:00 93 03/14/17 21:45 100 21 123/73 100 131/65 03/14/17 21:30 102 18 120/67 100 132/66 03/14/17 21:15 93 18 122/64 100 124/62 03/14/17 21:00 94 16 111/66 100 128/64 03/14/17 20:45 100 20 120/68 100 135/67 03/14/17 20:30 94 18 120/65 100 132/66 03/14/17 20:28 100 40 03/14/17 20:15 103 23 129/65 100 135/68 03/14/17 20:00 97.8 101 21 121/64 100 133/68 03/14/17 20:00 40 03/14/17 20:00 101 03/14/17 18:00 110 03/14/17 17:00 100 03/14/17 16:17 91 40 03/14/17 16:00 96 03/14/17 16:00 98.5 96 22 122/67 100 110/74 03/14/17 16:00 96 03/14/17 16:00 40 03/14/17 15:00 84 03/14/17 14:00 91 03/14/17 13:00 92 03/14/17 12:00 99.0 92 23 90/55 100 104/53 03/14/17 12:00 40 03/14/17 12:00 92 03/14/17 11:27 100 40 03/14/17 11:00 96 03/14/17 10:00 96 I/O 03/14/17 03/14/17 03/14/17 03/15/17 03/15/17 03/15/17 07:00 15:00 23:00 07:00 15:00 23:00 Intake Total 650 ml 359 ml 595 ml 1113 ml Output Total 175 ml 600 ml 1200 ml Balance 475 ml -241 ml 595 ml -87 ml Intake Oral 0 ml IV Total 650 ml 299 ml 260 ml 1053 ml Packed Cells 335 ml Other 60 ml 60 ml Output Urine Total 175 ml 600 ml 1200 ml # Bowel Movements 1 4 0 Physical Exam GENERAL: Well developed, well nourished. No acute distress, on vent HEENT: Jugular venous pressure is normal. CHEST: Lungs decreased bilaterally. Unlabored respiratory effort. CARDIAC: irregular rate and tachy rhythm without S3, S4, or murmur. ABDOMEN: Soft, nontender, EXTREMITIES: No clubbing, feet with cyanosis, no edema. Laboratory Laboratory Tests Test 03/14/17 03/14/17 03/14/17 03/14/17 11:49 11:51 13:17 17:10 Blood Type O NEGATIVE O NEGATIVE Antibody Screen NEGATIVE Crossmatch Leukocyte-Reduced Red Blood Cells Blood Bank Comment Stool C. difficile Toxin (PCR) NEGATIVE Stl C. difficile Toxin PRESUMPTIVE Epiderm 027 NEGATIVE Hemoglobin 9.9 GM/DL Hematocrit 29.2 % Test 03/15/17 04:10 White Blood Count 10.0 TH/MM3 Red Blood Count 3.24 MIL/MM3 Hemoglobin 10.3 GM/DL Hematocrit 30.6 % Mean Corpuscular Volume 94.4 FL Mean Corpuscular Hemoglobin 31.9 PG Mean Corpuscular Hemoglobin 33.8 % Concent Red Cell Distribution Width 15.9 % Platelet Count 226 TH/MM3 Mean Platelet Volume 9.6 FL Neutrophils (%) (Auto) 90.2 % Lymphocytes (%) (Auto) 5.2 % Monocytes (%) (Auto) 4.3 % Eosinophils (%) (Auto) 0.1 % Basophils (%) (Auto) 0.2 % Neutrophils # (Auto) 9.0 TH/MM3 Lymphocytes # (Auto) 0.5 TH/MM3 Monocytes # (Auto) 0.4 TH/MM3 Eosinophils # (Auto) 0.0 TH/MM3 Basophils # (Auto) 0.0 TH/MM3 CBC Comment DIFF FINAL Differential Comment Sodium Level 135 MEQ/L Potassium Level 4.2 MEQ/L Chloride Level 105 MEQ/L Carbon Dioxide Level 17.7 MEQ/L Anion Gap 12 MEQ/L Blood Urea Nitrogen 31 MG/DL Creatinine 1.25 MG/DL Estimat Glomerular Filtration 41 ML/MIN Rate Random Glucose 189 MG/DL Calcium Level 9.0 MG/DL Phosphorus Level 2.3 MG/DL Magnesium Level 1.4 MG/DL Total Bilirubin 0.9 MG/DL Aspartate Amino Transf 43 U/L (AST/SGOT) Alanine Aminotransferase 53 U/L (ALT/SGPT) Alkaline Phosphatase 62 U/L Total Protein 5.7 GM/DL Albumin 2.3 GM/DL Imaging Last 72 hours Impressions Chest X-Ray 03/14/17 0600 Signed Impressions: Service Date/Time: Tuesday, March 14, 2017 03:48 - CONCLUSION: 1. Cardiomegaly and findings of vascular congestion without overt failure. Bilateral lower lobe atelectasis versus pneumonia. This is new when compared with the prior exam. Harvey Cheng MD Chest X-Ray 03/13/17 0600 Signed Impressions: Service Date/Time: February 03:33 - CONCLUSION: Improving aeration of the lung mariee compared to the prior study. Colten Dia MD Assessment and Plan Assessment and Plan AF- fair rate control, decrease amio NSTEMI- EF 25%, -continue conservative measures -BB and BUBBA relatively contraindicated, on pressors and milrinone -poor/not revasc candidate secondary to comorbid conditions Cardiomyopathy- as above, on milrinone resp - on vent Anemia UTI sepsis- CCM- ID Prognosis is poor with multisystem failure (>50%) Xiao Keys MD Mar 15, 2017 09:07
--- NOTE | 2017-03-15 09:09 | HHI.IDPN ---
Subjective Subjective Remarks somewhat better afebrile remains on pressors, stil high doses, but less than yday not weaning no secretions Antibiotics zosyn zyvox fluconazol Allergies: Coded Allergies: Aspirin (Verified Allergy, Unknown, 03/11/17) pt sts ulcer Uncoded Allergies: antipsycotics (Allergy, Intermediate, Confusion, 03/01/17) Objective . Vital Signs Date Time Temp Pulse Resp B/P Pulse Ox O2 Delivery O2 Flow Rate FiO2 03/15/17 08:59 100 35 03/15/17 08:00 40 03/15/17 08:00 85 03/15/17 04:26 100 40 03/15/17 04:15 92 03/15/17 04:00 40 03/15/17 02:00 102 03/15/17 01:29 100 40 03/15/17 00:00 96 03/15/17 00:00 40 03/15/17 00:00 98.0 96 17 122/68 100 135/70 03/14/17 23:45 88 15 115/68 100 130/68 03/14/17 23:30 89 15 114/68 100 129/67 03/14/17 23:15 90 15 112/69 100 129/67 03/14/17 23:00 89 15 113/67 100 128/66 03/14/17 22:45 90 15 111/67 100 127/65 03/14/17 22:30 90 15 112/65 100 126/64 03/14/17 22:15 92 16 114/67 100 126/64 03/14/17 22:00 93 18 124/70 100 131/68 03/14/17 22:00 93 03/14/17 21:45 100 21 123/73 100 131/65 03/14/17 21:30 102 18 120/67 100 132/66 03/14/17 21:15 93 18 122/64 100 124/62 03/14/17 21:00 94 16 111/66 100 128/64 03/14/17 20:45 100 20 120/68 100 135/67 03/14/17 20:30 94 18 120/65 100 132/66 03/14/17 20:28 100 40 03/14/17 20:15 103 23 129/65 100 135/68 03/14/17 20:00 97.8 101 21 121/64 100 133/68 03/14/17 20:00 40 03/14/17 20:00 101 03/14/17 18:00 110 03/14/17 17:00 100 03/14/17 16:17 91 40 03/14/17 16:00 96 03/14/17 16:00 98.5 96 22 122/67 100 110/74 03/14/17 16:00 96 03/14/17 16:00 40 03/14/17 15:00 84 03/14/17 14:00 91 03/14/17 13:00 92 03/14/17 12:00 99.0 92 23 90/55 100 104/53 03/14/17 12:00 40 03/14/17 12:00 92 03/14/17 11:27 100 40 03/14/17 11:00 96 03/14/17 10:00 96 03/14/17 03/14/17 03/15/17 15:00 23:00 07:00 Intake Total 359 ml 595 ml 1113 ml Output Total 600 ml 1200 ml Balance -241 ml 595 ml -87 ml Intake Oral 0 ml IV Total 299 ml 260 ml 1053 ml Packed Cells 335 ml Other 60 ml 60 ml Output Urine Total 600 ml 1200 ml # Bowel Movements 4 0 . Laboratory Tests Test 03/14/17 03/14/17 03/14/17 03/15/17 04:16 09:05 17:10 04:10 White Blood Count 14.4 TH/MM3 12.8 TH/MM3 10.0 TH/MM3 Red Blood Count 2.33 MIL/MM3 2.25 MIL/MM3 3.24 MIL/MM3 Hemoglobin 7.4 GM/DL 7.1 GM/DL 9.9 GM/DL 10.3 GM/DL Hematocrit 22.6 % 21.9 % 29.2 % 30.6 % Mean Corpuscular Volume 96.9 FL 97.2 FL 94.4 FL Mean Corpuscular Hemoglobin 31.6 PG 31.7 PG 31.9 PG Mean Corpuscular Hemoglobin 32.6 % 32.6 % 33.8 % Concent Red Cell Distribution Width 16.0 % 15.8 % 15.9 % Platelet Count 265 TH/MM3 247 TH/MM3 226 TH/MM3 Mean Platelet Volume 8.1 FL 8.4 FL 9.6 FL Neutrophils (%) (Auto) 81.9 % 80.5 % 90.2 % Lymphocytes (%) (Auto) 9.0 % 10.4 % 5.2 % Monocytes (%) (Auto) 8.6 % 8.6 % 4.3 % Eosinophils (%) (Auto) 0.0 % 0.1 % 0.1 % Basophils (%) (Auto) 0.5 % 0.4 % 0.2 % Neutrophils # (Auto) 11.7 TH/MM3 10.3 TH/MM3 9.0 TH/MM3 Lymphocytes # (Auto) 1.3 TH/MM3 1.3 TH/MM3 0.5 TH/MM3 Monocytes # (Auto) 1.2 TH/MM3 1.1 TH/MM3 0.4 TH/MM3 Eosinophils # (Auto) 0.0 TH/MM3 0.0 TH/MM3 0.0 TH/MM3 Basophils # (Auto) 0.1 TH/MM3 0.0 TH/MM3 0.0 TH/MM3 CBC Comment DIFF FINAL DIFF FINAL DIFF FINAL Differential Comment Laboratory Tests Test 03/13/17 03/14/17 03/14/17 03/15/17 22:39 04:16 09:05 04:10 Sodium Level 140 MEQ/L 138 MEQ/L 135 MEQ/L Potassium Level 5.9 MEQ/L 4.8 MEQ/L 4.2 MEQ/L Chloride Level 110 MEQ/L 109 MEQ/L 105 MEQ/L Carbon Dioxide Level 18.6 MEQ/L 17.8 MEQ/L 17.7 MEQ/L Anion Gap 11 MEQ/L 11 MEQ/L 12 MEQ/L Blood Urea Nitrogen 28 MG/DL 31 MG/DL 31 MG/DL Creatinine 1.01 MG/DL 1.06 MG/DL 1.25 MG/DL Estimat Glomerular Filtration 52 ML/MIN 49 ML/MIN 41 ML/MIN Rate Random Glucose 111 MG/DL 118 MG/DL 189 MG/DL Lactic Acid Level 2.4 mmol/L 1.9 mmol/L Calcium Level 8.7 MG/DL 8.6 MG/DL 9.0 MG/DL Total Bilirubin 0.7 MG/DL 0.8 MG/DL 0.9 MG/DL Aspartate Amino Transf 58 U/L 52 U/L 43 U/L (AST/SGOT) Alanine Aminotransferase 62 U/L 59 U/L 53 U/L (ALT/SGPT) Alkaline Phosphatase 52 U/L 52 U/L 62 U/L Total Protein 5.4 GM/DL 5.1 GM/DL 5.7 GM/DL Albumin 2.5 GM/DL 2.4 GM/DL 2.3 GM/DL Magnesium Level 1.5 MG/DL 1.4 MG/DL Phosphorus Level 2.3 MG/DL Microbiology Date/Time Procedure Status Source Growth 03/14/17 08:22 Gram Stain Received Sputum Endotracheal Pending 03/14/17 08:22 Sputum Culture Received Sputum Endotracheal Pending 03/14/17 08:52 Gram Stain - Final Resulted Sputum Endotracheal 03/14/17 08:52 Sputum Culture Resulted Sputum Endotracheal Pending 03/14/17 08:59 Urine Culture Received Urine Catheterized Urine Pending 03/14/17 13:17 Stool Occult Blood (DANIAL) - Final Complete Stool Stool HEMOCCULT NEGATIVE Imaging Last Impressions Chest X-Ray 03/14/17 0600 Signed Impressions: Service Date/Time: Tuesday, March 14, 2017 03:48 - CONCLUSION: 1. Cardiomegaly and findings of vascular congestion without overt failure. Bilateral lower lobe atelectasis versus pneumonia. This is new when compared with the prior exam. Harvey Cheng MD Head CT 03/12/17 0000 Signed Impressions: Service Date/Time: Sunday, March 12, 2017 13:00 - CONCLUSION: 1. Cerebral atrophy and chronic ischemic small vessel vasculopathy. Evans Augustin MD Physical Exam CONSTITUTIONAL/GENERAL: This is an adequately nourished patient, in no apparent distress. TUBES/LINES/DRAINS: SKIN: No jaundice, rashes, or lesions. Not diaphoretic. HEAD: Atraumatic. Normocephalic. EYES: No scleral icterus. ENT: Hearing not tested. Nose without bleeding or purulent drainage. orally intubated without visible erythema, exudates, masses, or lesions. NECK: Trachea midline. NO JVD CARDIOVASCULAR: Regular rate and rhythm without murmurs, gallops, or rubs. No JVD + delayed refill, especially on R foot RESPIRATORY/CHEST: Symmetric, unlabored respirations. Clear to auscultation. Breath sounds equal bilaterally. No wheezes, rales, or rhonchi. GASTROINTESTINAL: Abdomen soft, no reaction to palpation, mildly distended. No hepato-splenomegaly, or palpable masses. No guarding. Bowel sounds diminished GENITOURINARY: Without palpable bladder distension. Abrams catheter in place with clear yellow urine MUSCULOSKELETAL: Extremities without clubbing, + no edema. No joint tenderness or effusion noted. No calf tenderness. + mottling or clubbing. Prominent cyanosis on toes, finger tips most prominent R foot, slightly better LYMPHATICS: No palpable cervical or supraclavicular adenopathy. NEUROLOGICAL: Sedated intubated, unresponsive PSYCHIATRIC: unable to assess Assessment & Plan Remarks NSTEMI Heart hfailure with cardiogenic shock VRE UTI Candiduria Acute VDRF Bilateral lower lobe atelectasis versus early pneumonia - clx P Critically ill and unstable Abx associated diarrhea, C.diff negative REC's: cont zosyn, fluconazole cont zyvox fu blood and sputum clx dw Tracie Abreu RN, MD Mar 15, 2017 09:09
[2017-03-15] MEDS: DIGOXIN 0.25 MG TAB PO SCH (21:36)
[2017-03-15] MEDS: DONEPEZIL HCL 5 MG TAB PO SCH (21:36)
[2017-03-15] MEDS: PHENYLEPHRINE INJ 160 MG in DEXTROSE 5% IN WATE 500 ML INJ 484 ML IV SCH ×2 (21:37)
[2017-03-16] VITALS (18 sets, daily range): BP systolic 98–128; BP diastolic 52–66; PULSE 80–85; RESP 14–16; TEMP 97.6–98.6; O2SAT 100
[2017-03-16] MEDS: MILRINONE INJ 20 MG in SODIUM CHLORIDE 0.9% INJ 80 ML IV SCH ×3 (00:18→14:31)
[2017-03-16] MEDS: PIPERACIL-TAZO 3.375 GM PREMIX 50 ML IV SCH ×5 (00:29→22:53)
[2017-03-16] MEDS: RESP: ALBUTEROL 2.5 MG/IPRATROPIUM 0.5 MG NEB (SCH) NEB ×4 (02:54→20:59)
[2017-03-16] MEDS: INSULIN NovoLIN REGULAR SUPPLEMENTAL SCALE SQ SCH ×4 (03:00→21:00)
[2017-03-16] MEDS: CHLORHEXIDINE GLUCONATE 2 % 1 PACK (2 CLOTHS) TOP SCH (03:19)
[2017-03-16] MEDS: LINEZOLID 600 MG PREMIX 300 ML IV SCH ×2 (03:19→14:30)
[2017-03-16] MEDS: HYDROCORTISONE SOD SUCCINATE 100 MG VIAL IV PUSH SCH ×3 (05:23→22:53)
[2017-03-16 05:46] LABS: ALKALINE PHOSPHATASE 58 U/L (45-117); ALT (GPT) 39 U/L (10-53); ANION GAP 13 MEQ/L (5-15); AST (GOT) 18 U/L (15-37); BICARBONATE 18.7 MEQ/L (21.0-32.0); BLOOD UREA NITROGEN 33 MG/DL (7-18); CHLORIDE 104 MEQ/L (98-107); GLOMERULAR FILTRATION RATE 40 ML/MIN (>89); MAGNESIUM 3.5 MG/DL (1.5-2.5); SODIUM (NA) 136 MEQ/L (136-145); TOTAL BILIRUBIN ADULT 0.7 MG/DL (0.2-1.0)
[2017-03-16 05:48] LABS: POTASSIUM 2.9 MEQ/L (3.5-5.1)
[2017-03-16] MEDS: POTASSIUM CHLOR 40 MEQ PREMIX 100 ML IV PRN ×2 (05:59→08:32)
[2017-03-16 06:10] LABS: AUTOMATED NEUTROPHIL # 10.8 TH/MM3 (1.8-7.7); BASOPHIL % 0.1 % (0.0-2.0); HEMATOCRIT 28.8 % (35.0-46.0); HEMO FLAGS DIFF FINAL; LYMPHOCYTE # 0.5 TH/MM3 (1.0-4.8); MEAN CELL VOLUME 92.8 FL (80.0-100.0); MEAN CORPUSCULAR HGB CONC 34.4 % (32.0-36.0); MONO % 5.9 % (0.0-8.0); PLATELET COUNT 349 TH/MM3 (150-450); RED CELL DISTRIBUTION WIDTH 15.9 % (11.6-17.2)
--- NOTE | 2017-03-16 07:47 | HHI.CCPN ---
Subjective Remarks/Hospital Course Patient is an 82-year-old female with past medical history significant for recurrent UTIs, atrial fibrillation, hypertension, dyslipidemia, dementia who was transferred from [facility] emergency department after being diagnosed for NSTEMI. She presented with chest pain and EKG showed sinus tachycardia, and troponin was elevated at 4.43. Patient was given aspirin (by EMS) and started on IV heparin infusion. Patient was transferred to [facility] ICU per Dr. Keys's request. Other abnormal labs include BNP of 1330 and potassium of 3. Previous echo showed an ejection fraction of 45%. I evaluated the patient in the ICU. Appears in moderate distress, tachypneic, tachycardic, but denies chest pain (when asked in German by RN). Patient was seen by Dr. Keys in the ICU, not a candidate for cardiac catheterization on interventions at this time. 2-D echo is pending. UA shows evidence of UTI. Started on cefepime and Diflucan (yeast present in UA). Repeat troponin and lactic acid pending at this time. SUBJ 03/12: I rounded on patient at about 0830 AM, patient was communicative tachypneic but not in severe distress. I was emergently called to the bedside at 10:30 AM patient was unresponsive agonal breathing with blood pressure 60/29 , bradycardic. Emergently started on dopamine. Patient was not protecting airway and I emergently intubated and placed on mechanical ventilation. An emergency left subclavian central line also placed. Levophed was added due to persistent hypotension. Patient appears to be in severe cardiogenic shock. EF 15 -20% down from 40% on 03/04/17. Patient also has moderate to severe MR, moderate to severe TR with moderate to severe pulmonary hypertension. I have discussed with Dr. Keys, she does not think patient is a candidate for any invasive therapy due to advanced age and comorbidities including dementia. I have updated daughter Cata 03/13: Remains intubated sedated critically ill. Remains on 3 pressors (dopamine , Neftali-Synephrine, milrinone). Urine output diminishing. Patient is in multiorgan failure prognosis poor. Family wants to continue full aggressive care palliative care is following. Urine culture showing group D enterococcus and Soledad. Cefepime discontinued Zosyn started along with vancomycin and continue Diflucan 03/14 Patient is sedated with versed and intubated. On Neosyn 200 mics and Milrinone. T: 100.0 last night. Off Dopamine 03/15 Patient remains intubated and sedated with Versed 5mg/hr, Nesoyn down 112 mics and on Milrinone. Afebrile. s/p transfusion 1unit PRBC yesterday. 03/16 No events overnight. Remains sedated with versed and intubated. On Neosyn and Milrinone. Objective Vital Signs Date Time Temp Pulse Resp B/P Pulse Ox O2 Delivery O2 Flow Rate FiO2 03/16/17 06:00 80 03/16/17 04:00 35 03/16/17 04:00 97.6 14 113/65 100 115/52 03/13/17 20:04 Ventilator 03/12/17 08:02 3.00 Intake and Output 03/15/17 03/15/17 03/16/17 08:00 16:00 00:00 Intake Total 662 ml 552 ml Output Total 400 ml 900 ml Balance 262 ml -348 ml Result Diagram: 03/16/17 0540 03/16/17 0315 Other Results Laboratory Tests Test 03/16/17 03/16/17 03:15 05:40 Sodium Level 136 MEQ/L Potassium Level 2.9 MEQ/L Chloride Level 104 MEQ/L Carbon Dioxide Level 18.7 MEQ/L Anion Gap 13 MEQ/L Blood Urea Nitrogen 33 MG/DL Creatinine 1.28 MG/DL Estimat Glomerular Filtration 40 ML/MIN Rate Random Glucose 119 MG/DL Calcium Level 8.8 MG/DL Phosphorus Level 6.2 MG/DL Magnesium Level 3.5 MG/DL Total Bilirubin 0.7 MG/DL Aspartate Amino Transf 18 U/L (AST/SGOT) Alanine Aminotransferase 39 U/L (ALT/SGPT) Alkaline Phosphatase 58 U/L Total Protein 5.2 GM/DL Albumin 2.0 GM/DL White Blood Count 12.0 TH/MM3 Red Blood Count 3.10 MIL/MM3 Hemoglobin 9.9 GM/DL Hematocrit 28.8 % Mean Corpuscular Volume 92.8 FL Mean Corpuscular Hemoglobin 32.0 PG Mean Corpuscular Hemoglobin 34.4 % Concent Red Cell Distribution Width 15.9 % Platelet Count 349 TH/MM3 Mean Platelet Volume 9.2 FL Neutrophils (%) (Auto) 90.0 % Lymphocytes (%) (Auto) 4.0 % Monocytes (%) (Auto) 5.9 % Eosinophils (%) (Auto) 0.0 % Basophils (%) (Auto) 0.1 % Neutrophils # (Auto) 10.8 TH/MM3 Lymphocytes # (Auto) 0.5 TH/MM3 Monocytes # (Auto) 0.7 TH/MM3 Eosinophils # (Auto) 0.0 TH/MM3 Basophils # (Auto) 0.0 TH/MM3 CBC Comment DIFF FINAL Differential Comment Imaging Last Impressions Chest X-Ray 03/14/17 0600 Signed Impressions: Service Date/Time: Tuesday, March 14, 2017 03:48 - CONCLUSION: 1. Cardiomegaly and findings of vascular congestion without overt failure. Bilateral lower lobe atelectasis versus pneumonia. This is new when compared with the prior exam. Harvey Cheng MD Head CT 03/12/17 0000 Signed Impressions: Service Date/Time: Sunday, March 12, 2017 13:00 - CONCLUSION: 1. Cerebral atrophy and chronic ischemic small vessel vasculopathy. Evans Augustin MD Objective Remarks GENERAL: 82-year-old female acutely and chronically critically ill, on vent SKIN: Warm and dry. HEAD: Atraumatic. EYES: Pupils equal and round. No scleral icterus. ENT: No nasal bleeding or discharge. Orotracheally intubated NECK: Positive JVD CARDIOVASCULAR: Tachycardic, hypotensive. Systolic murmur at the apex. Remains on milrinone, dopamine and Neftali-Synephrine RESPIRATORY: Air entry equal bilaterally. Few basilar crackles GASTROINTESTINAL: Abdomen soft, non-tender, nondistended. NEUROLOGICAL: Intubated sedated. Occasionally opens eyes. Moving all extremities not following commands on sedation A/P Assessment and Plan NEURO: Acute encephalopathy Dementia Versed infusion for sedation, maintain ventilator synchrony. Daily sedation vacation. Monitor neuro status. Continue home Aricept Encephalopathy most likely secondary to metabolic causes RESP: Acute respiratory failure History of COPD Pulmonary artery hypertension Continue with vent support and keep sat >92% Ventilator bundle. DuoNeb scheduled and when necessary SBT daily as carley CV: NSTEMI Cardiogenic shock Acute systolic heart failure Lactic acidosis Ischemic cardiomyopathy with ejection fraction 15-20% Moderate to severe mitral and tricuspid regurgitation History of A. fib s/p 2.5L bolus 7/18. All IV fluids discontinued due to pulmonary edema Ejection fraction 15-20% , in comparison to echocardiogram on 03/04/17 EF 40% Wean down pressors ( On Neosyn 112 mics, Milrinone) keep MAP>65mmHg On stress dose steroids- HC 100 mg IV Q8 Arterial line And flow track monitoring Amiodarone 400mg Q12 started by Dr. Keys, On Digoxin 0.25mg daily, Dig level: 1.4 on 03/14 Lactic acid trending down 1.9 03/14 GI: IV Protonix 40mg BID s/p transfusion 1unit PRBC, NPO, GI is following. Start tube feeds today if ok with GI : Monitor renal function , I/O's, electrolytes replacement per protocol. Cr: 1.28 today, UOP 1175 ml in 24 hrs. Will need K replacement today. ID: Severe sepsis UTI 03/11 Urine culture growing Soledad and group D enterococcus(VRE) 03/14 Urine cx: C. Albicans Continue abx( Zosyn, Diflucan, Zyvox) monitor for signs of infections ( Fever, WBC) ID is following HEME: Monitor CBC, CMP, coags s/p [id number] PRBC 03/14 ENDO: SSI for glycemic control Electrolyte replacement protocol PROPH: Bilateral lower extremity SCDs. SQ Heparin on hold for anemia requiring blood transfusion, Protonix LINES: Left subclavian central line, Right Femoral Art line- placed 03/12 CC time 30 min excluding procedures Palliative care following Deepthi Griffiths MD Mar 16, 2017 07:47
[2017-03-16] MEDS: POTASSIUM CHLORIDE 10 MEQ CAP PO SCH (08:32)
[2017-03-16] MEDS: DOCUSATE SODIUM 50 MG/SENNA 8.6 MG TAB PO SCH ×2 (08:32→22:52)
[2017-03-16] MEDS: PANTOPRAZOLE SODIUM 40 MG VIAL IV PUSH SCH ×2 (08:33→22:51)
[2017-03-16] MEDS: AMIODARONE 200 MG TAB OG-TUBE SCH ×2 (08:33→22:52)
[2017-03-16] MEDS: ASPIRIN 81 MG CHEW TAB CHEW SCH (08:33)
[2017-03-16] MEDS: FLUCONAZOLE 100 MG TAB PO SCH (08:33)
--- NOTE | 2017-03-16 09:35 | PD.CARD.PN ---
Subjective Subjective Remarks vent Objective Medications Current Medications Medications (Trade) Dose Ordered Sig/Arlet Route Start Time Stop Time Status Last Admin Miscellaneous Information 1 [id number] XX 03/11/17 13:45 03/12/17 23:07 (Chlorhexidine 2% Cloth) 3 pack Taper DAILY@04 TOP 03/12/17 04:00 03/08/18 03:59 03/16/17 03:19 (Chlorhexidine 2% Cloth) 3 pack UNSCH PRN TOP 03/11/17 13:45 (Steph-Colace) 1 tab BID PO 03/11/17 21:00 03/16/17 08:32 (Milk Of Magnesia Liq) 30 ml Q12H PRN PO 03/11/17 13:45 (Senokot) 17.2 mg Q12H PRN PO 03/11/17 13:45 (Dulcolax Supp) 10 mg DAILY PRN RECTAL 03/11/17 13:45 (Lactulose Liq) 30 ml DAILY PRN PO 03/11/17 13:45 (Aspirin Chew) 81 mg DAILY CHEW 03/12/17 09:00 03/16/17 08:33 (Lanoxin) 0.25 mg HS PO 03/11/17 21:00 03/15/17 21:36 (Aricept) 5 mg HS PO 03/11/17 21:00 03/15/17 21:36 Potassium Chloride 10 meq 10 meq DAILY PO 03/12/17 09:00 03/16/17 08:32 Potassium Chloride 100 ml @ 50 mls/hr Q2H PRN IV 03/11/17 14:30 03/16/17 08:32 (KCl 20 Meq Premix Inj) 100 ml @ 50 mls/hr Q2H PRN IV 03/11/17 14:30 Potassium Bicarb/ Potassium Chloride 50 meq 50 meq UNSCH PRN PO 03/11/17 14:30 Potassium Chloride 100 ml @ 25 mls/hr UNSCH PRN IV 03/11/17 14:30 Potassium Chloride 100 ml @ 50 mls/hr Q2H PRN IV 03/11/17 14:30 (Magnesium Sulfate Inj/NS Inj) 100 ml @ 50 mls/hr UNSCH PRN IV 03/11/17 14:30 03/15/17 08:33 Magnesium Oxide 800 mg 800 mg UNSCH PRN PO 03/11/17 14:30 (Magnesium Sulfate Inj/NS Inj) 100 ml @ 50 mls/hr UNSCH PRN IV 03/11/17 14:30 03/15/17 21:37 Potassium Phosphate 2000 mg 2,000 mg Q4H PRN PO 03/11/17 14:30 (Sodium Phosphate Inj/NS 250 ml Inj) 250 ml @ 42 mls/hr UNSCH PRN IV 03/11/17 14:30 03/15/17 08:33 Potassium Phosphate 2000 mg 2,000 mg UNSCH PRN PO/TUBE 03/11/17 14:28 (Potassium Phosphate Inj/NS 250 ml Inj) 260 ml @ 42 mls/hr UNSCH PRN IV 03/11/17 14:28 (Diflucan) 100 mg DAILY PO 03/11/17 17:00 03/16/17 08:33 Haloperidol Lactate 2 mg 2 mg Q6H PRN IV 03/11/17 17:00 (DOPamine INJ PREMIX) 500 ml @ 6.075 mls/ hr TITRATE IV 03/12/17 10:45 03/13/17 11:18 Terbutaline Sulfate 1 mg 1 mg UNSCH PRN SQ 03/12/17 10:45 (Levophed-Dextrose Drip) 250 ml @ 0 mls/hr TITRATE IV 03/12/17 11:45 03/12/17 19:29 Chlorhexidine Gluconate 15 ml 15 ml BID@08,20 MT 03/12/17 20:00 03/15/17 20:00 Midazolam HCl 100 ml @ 0 mls/hr TITRATE IV 03/12/17 14:00 03/14/17 09:57 Milrinone Lactate 20 mg/Sodium Chloride 100 ml @ 6.07 mls/hr [id number] IV 03/12/17 13:59 03/16/17 00:24 (Neosynephrine Inj/D5W 500 ml Inj) 500 ml @ 0 mls/hr TITRATE IV 03/13/17 03:30 03/15/17 21:37 Amiodarone HCl 400 mg 400 mg Q12HR OG-TUBE 03/13/17 09:00 03/16/17 08:33 (Zosyn 3.375 Gm Premix) 50 ml @ 100 mls/hr Q6H IV 03/13/17 17:00 03/16/17 05:23 (Heparin Inj) 5,000 units Q12HR SQ 03/13/17 21:00 Hold 03/14/17 09:53 (D50w (Vial) Inj) 50 ml UNSCH PRN IV 03/14/17 08:30 (Glucagon Inj) 1 mg UNSCH PRN OTHER 03/14/17 08:30 (NovoLIN R SUPPLEMENTAL SCALE) 1 Q6H SQ 03/14/17 09:00 (Protonix Inj) 40 mg BID IV PUSH 03/14/17 21:00 03/16/17 08:33 Hydrocortisone Sodium Succinate 100 mg 100 mg Q8HR IV PUSH 03/14/17 14:30 03/16/17 05:23 (Zyvox 600 Mg Premix) 300 ml @ 300 mls/hr Q12H IV 03/14/17 15:00 03/16/17 03:19 Vital Signs / I&O Vital Signs Date Time Temp Pulse Resp B/P Pulse Ox O2 Delivery O2 Flow Rate FiO2 03/16/17 07:57 100 35 03/16/17 06:00 80 03/16/17 04:00 35 03/16/17 04:00 84 03/16/17 04:00 97.6 84 14 113/65 100 115/52 03/16/17 02:54 100 35 03/16/17 02:00 80 03/16/17 00:00 35 03/16/17 00:00 97.6 84 14 109/66 100 114/53 03/16/17 00:00 84 03/15/17 23:39 100 35 03/15/17 22:00 87 03/15/17 20:49 100 35 03/15/17 20:00 80 03/15/17 20:00 35 03/15/17 20:00 97.6 80 14 109/60 100 121/57 03/15/17 18:00 78 03/15/17 16:00 40 03/15/17 16:00 98.0 96 17 112/66 100 135/70 03/15/17 16:00 80 03/15/17 15:33 100 35 03/15/17 12:00 98.1 79 16 103/60 100 03/15/17 11:32 100 35 03/15/17 11:00 85 I/O 7/22/17 03/15/17 03/15/17 03/16/17 03/16/17 03/16/17 06:59 14:59 22:59 06:59 14:59 22:59 Intake Total 1113 ml 552 ml 950 ml Output Total 1200 ml 900 ml 275 ml Balance -87 ml -348 ml 675 ml Intake Oral 0 ml IV Total 1053 ml 552 ml 950 ml Other 60 ml Output Urine Total 1200 ml 900 ml 275 ml # Bowel Movements 0 0 0 Physical Exam GENERAL: Well developed, well nourished. No acute distress. HEENT: Jugular venous pressure is normal. CHEST: Lungs decreased CTA to auscultation bilaterally. Unlabored respiratory effort. CARDIAC: regular rate and rhythm without S3, S4, or murmur. ABDOMEN: Soft, nontender, EXTREMITIES: No clubbing, Laboratory Laboratory Tests Test 03/16/17 03/16/17 03:15 05:40 Sodium Level 136 MEQ/L Potassium Level 2.9 MEQ/L Chloride Level 104 MEQ/L Carbon Dioxide Level 18.7 MEQ/L Anion Gap 13 MEQ/L Blood Urea Nitrogen 33 MG/DL Creatinine 1.28 MG/DL Estimat Glomerular Filtration 40 ML/MIN Rate Random Glucose 119 MG/DL Calcium Level 8.8 MG/DL Phosphorus Level 6.2 MG/DL Magnesium Level 3.5 MG/DL Total Bilirubin 0.7 MG/DL Aspartate Amino Transf 18 U/L (AST/SGOT) Alanine Aminotransferase 39 U/L (ALT/SGPT) Alkaline Phosphatase 58 U/L Total Protein 5.2 GM/DL Albumin 2.0 GM/DL White Blood Count 12.0 TH/MM3 Red Blood Count 3.10 MIL/MM3 Hemoglobin 9.9 GM/DL Hematocrit 28.8 % Mean Corpuscular Volume 92.8 FL Mean Corpuscular Hemoglobin 32.0 PG Mean Corpuscular Hemoglobin 34.4 % Concent Red Cell Distribution Width 15.9 % Platelet Count 349 TH/MM3 Mean Platelet Volume 9.2 FL Neutrophils (%) (Auto) 90.0 % Lymphocytes (%) (Auto) 4.0 % Monocytes (%) (Auto) 5.9 % Eosinophils (%) (Auto) 0.0 % Basophils (%) (Auto) 0.1 % Neutrophils # (Auto) 10.8 TH/MM3 Lymphocytes # (Auto) 0.5 TH/MM3 Monocytes # (Auto) 0.7 TH/MM3 Eosinophils # (Auto) 0.0 TH/MM3 Basophils # (Auto) 0.0 TH/MM3 CBC Comment DIFF FINAL Differential Comment Imaging Last 72 hours Impressions Chest X-Ray 03/14/17 0600 Signed Impressions: Service Date/Time: Friday, March 14, 2017 03:48 - CONCLUSION: 1. Cardiomegaly and findings of vascular congestion without overt failure. Bilateral lower lobe atelectasis versus pneumonia. This is new when compared with the prior exam. Harvey Cheng MD Assessment and Plan Assessment and Plan AF- appears to be NSR today - continue present meds NSTEMI- EF 25%, -03/16= no change -continue conservative measures -BB and BUBBA relatively contraindicated, on pressors and milrinone -poor/not revasc candidate secondary to comorbid conditions Cardiomyopathy- as above, on milrinone Resp failure on vent Anemia UTI sepsis- CCM- ID Prognosis is poor with multisystem failure (>50%) Xiao Keys MD Mar 16, 2017 09:35
--- NOTE | 2017-03-16 10:21 | HHI.GIFU ---
Subjective Remarks Sedated on vent. (Janie Spring) Objective Vitals I&O Vital Signs Date Time Temp Pulse Resp B/P Pulse Ox O2 Delivery O2 Flow Rate FiO2 03/16/17 08:00 80 03/16/17 08:00 35 03/16/17 08:00 98.4 83 16 100/59 100 115/52 03/16/17 07:57 100 35 03/16/17 06:00 80 03/16/17 04:00 35 03/16/17 04:00 84 03/16/17 04:00 97.6 84 14 113/65 100 115/52 03/16/17 02:54 100 35 03/16/17 02:00 80 03/16/17 00:00 35 03/16/17 00:00 97.6 84 14 109/66 100 114/53 03/16/17 00:00 84 03/15/17 23:39 100 35 03/15/17 22:00 87 03/15/17 20:49 100 35 03/15/17 20:00 80 03/15/17 20:00 35 03/15/17 20:00 97.6 80 14 109/60 100 121/57 03/15/17 18:00 78 03/15/17 16:00 40 03/15/17 16:00 98.0 96 17 112/66 100 135/70 03/15/17 16:00 80 03/15/17 15:33 100 35 03/15/17 12:00 98.1 79 16 103/60 100 03/15/17 11:32 100 35 03/15/17 11:00 85 I/O 03/15/17 03/15/17 03/15/17 03/16/17 03/16/17 03/16/17 07:00 15:00 23:00 07:00 15:00 23:00 Intake Total 1113 ml 552 ml 950 ml Output Total 1200 ml 900 ml 275 ml Balance -87 ml -348 ml 675 ml Intake Oral 0 ml IV Total 1053 ml 552 ml 950 ml Other 60 ml Output Urine Total 1200 ml 900 ml 275 ml # Bowel Movements 0 0 0 Laboratory Laboratory Tests Test 03/16/17 03/16/17 03:15 05:40 Sodium Level 136 Potassium Level 2.9 Chloride Level 104 Carbon Dioxide Level 18.7 Anion Gap 13 Blood Urea Nitrogen 33 Creatinine 1.28 Estimat Glomerular Filtration 40 Rate Random Glucose 119 Calcium Level 8.8 Phosphorus Level 6.2 Magnesium Level 3.5 Total Bilirubin 0.7 Aspartate Amino Transf 18 (AST/SGOT) Alanine Aminotransferase 39 (ALT/SGPT) Alkaline Phosphatase 58 Total Protein 5.2 Albumin 2.0 White Blood Count 12.0 Red Blood Count 3.10 Hemoglobin 9.9 Hematocrit 28.8 Mean Corpuscular Volume 92.8 Mean Corpuscular Hemoglobin 32.0 Mean Corpuscular Hemoglobin 34.4 Concent Red Cell Distribution Width 15.9 Platelet Count 349 Mean Platelet Volume 9.2 Neutrophils (%) (Auto) 90.0 Lymphocytes (%) (Auto) 4.0 Monocytes (%) (Auto) 5.9 Eosinophils (%) (Auto) 0.0 Basophils (%) (Auto) 0.1 Neutrophils # (Auto) 10.8 Lymphocytes # (Auto) 0.5 Monocytes # (Auto) 0.7 Eosinophils # (Auto) 0.0 Basophils # (Auto) 0.0 CBC Comment DIFF FINAL Differential Comment Date/Time Procedure Status Source Growth 03/14/17 13:17 Stool Occult Blood (DANIAL) - Final Complete Stool Stool HEMOCCULT NEGATIVE 03/14/17 08:59 Urine Culture - Final Complete Urine Catheterized Urine Seth Albicans 03/14/17 08:52 Gram Stain - Final Resulted Sputum Endotracheal 03/14/17 08:52 Sputum Culture - Preliminary Resulted Sputum Endotracheal MODERATE GROWTH NORMAL RESPIRATORY FL... 03/14/17 08:22 Gram Stain Received Sputum Endotracheal Pending 03/14/17 08:22 Sputum Culture Received Sputum Endotracheal Pending 03/12/17 05:24 Aerobic Blood Culture - Preliminary Resulted Blood Peripheral NO GROWTH IN 3 DAYS 03/12/17 05:24 Anaerobic Blood Culture - Preliminary Resulted Blood Peripheral NO GROWTH IN 3 DAYS Imaging Last Impressions Chest X-Ray 03/14/17 0600 Signed Impressions: Service Date/Time: Tuesday, March 14, 2017 03:48 - CONCLUSION: 1. Cardiomegaly and findings of vascular congestion without overt failure. Bilateral lower lobe atelectasis versus pneumonia. This is new when compared with the prior exam. Harvey Cheng MD Head CT 03/12/17 0000 Signed Impressions: Service Date/Time: Sunday, March 12, 2017 13:00 - CONCLUSION: 1. Cerebral atrophy and chronic ischemic small vessel vasculopathy. vEans Augustin MD Physical Exam HEENT: Normocephalic; atraumatic; no jaundice. NECK: Neck is supple, + JVD, no lymphadenopathy. CHEST: OETT to vent. Decreased lung sounds. CARDIAC: RRR ABDOMEN: Soft, nondistended, nontender; no hepatosplenomegaly; bowel sounds x 4 quadrants. EXTREMITIES: Generalized edema SKIN: Normal; no rash; no jaundice. JAILOR: Sedated on vent. (Janie Spring) Assessment and Plan Plan ASSESSMENT: - Anemia with drop in Hgb. She was noted to have an HH of 9.9/30.3 on admission and this had been slowly been trending down. S/P transfusion 03/14. HH today 9.9/28.8. No obvious GI bleeding. No vomiting. No rectal bleeding. Daughter, Cata Yin , states her mother was recently hospitalized at [facility] for GIB and evaluated with egd/colonoscopy and found to have an ulcer. She reports that she was not happy with the care her mother was receiving and then transferred her to [facility] in [place] for further tx. She has been on Protonix at home. She was on heparin here, until today when it was placed on hold. Protonix BID dosing. Hemoccult stool negative. Monitor HH, tx as necessary. Consider repeat EGD if active bleeding/drop in hgb. Will try to obtain records from recent hospitalization for gi bleeding. - NSTEMI, Atrial fibrillation, CMP. Cardiology following, not a candidate for revascularization. Medical management. - Respiratory failure. Vent per CCM. - Sepsis, UTI. Urine cx on admission with seth albicans and enterococcus faecium. Zyvox, Zosyn BCx no growth 2 days, sputum culture shows moderate growth of normal respiratory ashwin at 24 hours, urine culture shows seth albicans and enterococcus faecium Vre. - WALESKA with electrolyte abnormalities. Per CCM - Dementia. Per [facility] PLAN - NPO - Start TF at 10cc/hour then increase to goal - Nutritional consult - Cont. Protonix 40mg IV BID - Monitor HH - Transfuse as necessary - Obtain records from recent hospitalization for GIB from [facility] in [place] and [facility] - Monitor labs - Supportive care - Further recommendations to follow based on results of above Patient seen and examined by Dr. Escamilla and myself and this note is written on her behalf (Janie Spring) Physician Comments seen, examined agree with above abdominal us-elevated lfts-improved at this time (Jessi Escamilla MD) Janie Spring Mar 16, 2017 10:21 Jessi Escamilla MD Mar 16, 2017 14:13
[2017-03-16] MEDS ORDERED: PHARMACY ORDERED LAB ONE (15:45)
--- NOTE | 2017-03-16 21:26 | RADRPT ---
EXAM DATE/TIME: 03/16/2017 20:35 [facility] COMPARISON: No previous studies available for comparison. INDICATIONS : Elevated liver function tests. MEDICAL HISTORY : Hypertension. Hypercholesterolemia. Confusion. COPD. Apnea. Dyspnea. Ulcer. Gait problems. Incontin ence. Depression. Anxiety. SURGICAL HISTORY : section. ENCOUNTER: Initial ACUITY: 1 day PAIN SCORE: Nonresponsive. LOCATION: Abdomen. MEASUREMENTS: LIVER: 11.9 cm length COMMON DUCT: 1 mm RIGHT KIDNEY: 8.9 x 4.2 x 3.2 cm LEFT KIDNEY: 9.8 x 3.2 x 3.6 cm SPLEEN: 8.5 cm length AORTA: 1.6cm maximal FINDINGS: LIVER: Normal echotexture without focal lesion or ductal dilatation. Multiple cysts largest in the right lo be measuring 1.4 cm. Hyperechoic lesion in the right lobe measures 13 x 18 x 14 mm. Hepatopedal flow. COMMON DUCT: No intraluminal mass or stone visualized. GALLBLADDER: Contains several stones, demonstrates no wall thickening or pericholecystic fluid. PANCREAS: The visualized portions are within normal limits. RIGHT KIDNEY: No hydronephrosis, stone or mass. Simple cyst lower pole measures 1.5 cm. LEFT KIDNEY: No hydronephrosis, stone or mass. SPLEEN: No focal lesion. AORTA: Non aneurysmal. IVC: Within normal limits. CONCLUSION: 1. Right renal cyst and multiple hepatic cysts. 2. Echogenic lesion in liver measures 1.8 cm likely hemangioma. Contrasted MRI may be warranted for c onfirmation. 3. Cholelithiasis. Evans Augustin MD on March 16, 2017 at 21:22 Board Certified Radiologist. This report was verified electronically.
[2017-03-16] MEDS: MIDAZOLAM 100 MG/100 ML INJ 100 ML IV SCH (22:33)
[2017-03-16] MEDS: PHENYLEPHRINE INJ 160 MG in DEXTROSE 5% IN WATE 500 ML INJ 484 ML IV SCH ×2 (22:33)
[2017-03-16] MEDS: CHLORHEXIDINE 0.12% (ORAL KIT) 15 ML CUP MT SCH ×2 (22:33→22:34)
[2017-03-16] MEDS: DIGOXIN 0.25 MG TAB PO SCH (22:52)
[2017-03-16] MEDS: DONEPEZIL HCL 5 MG TAB PO SCH (22:57)
[2017-03-17] VITALS (23 sets, daily range): BP systolic 95–135; BP diastolic 46–74; PULSE 70–86; RESP 14–15; TEMP 97.5–98.8; O2SAT 100
[2017-03-17] MEDS: INSULIN NovoLIN REGULAR SUPPLEMENTAL SCALE SQ SCH ×4 (03:00→21:00)
[2017-03-17] MEDS: LINEZOLID 600 MG PREMIX 300 ML IV SCH ×2 (03:02→15:21)
[2017-03-17] MEDS: RESP: ALBUTEROL 2.5 MG/IPRATROPIUM 0.5 MG NEB (SCH) NEB ×3 (03:05→16:19)
[2017-03-17] MEDS: CHLORHEXIDINE GLUCONATE 2 % 1 PACK (2 CLOTHS) TOP SCH (03:48)
[2017-03-17] MEDS: PIPERACIL-TAZO 3.375 GM PREMIX 50 ML IV SCH ×3 (05:35→17:25)
[2017-03-17] MEDS: HYDROCORTISONE SOD SUCCINATE 100 MG VIAL IV PUSH SCH ×3 (05:35→21:47)
[2017-03-17 07:11] LABS: AUTOMATED NEUTROPHIL # 9.7 TH/MM3 (1.8-7.7); HEMATOCRIT 31.4 % (35.0-46.0); HEMO FLAGS DIFF FINAL; LYMPH % 5.1 % (9.0-44.0); LYMPHOCYTE # 0.6 TH/MM3 (1.0-4.8); MEAN CELL VOLUME 94.6 FL (80.0-100.0); MEAN CORPUSCULAR HEMOGLOBIN 31.9 PG (27.0-34.0); MEAN CORPUSCULAR HGB CONC 33.7 % (32.0-36.0); MONO % 5.3 % (0.0-8.0); NEUT % 89.6 % (16.0-70.0); PLATELET COUNT 410 TH/MM3 (150-450); RED BLOOD COUNT 3.32 MIL/MM3 (4.00-5.30); RED CELL DISTRIBUTION WIDTH 15.9 % (11.6-17.2); WHITE BLOOD COUNT 10.8 TH/MM3 (4.0-11.0)
[2017-03-17 07:44] LABS: MAGNESIUM 3.1 MG/DL (1.5-2.5); POTASSIUM 4.1 MEQ/L (3.5-5.1)
--- NOTE | 2017-03-17 08:02 | PD.CARD.PN ---
Subjective Subjective Remarks vent Objective Medications Current Medications Medications (Trade) Dose Ordered Sig/Arlet Route Start Time Stop Time Status Last Admin Miscellaneous Information 1 [id number] XX 03/11/17 13:45 03/12/17 23:07 (Chlorhexidine 2% Cloth) Taper DAILY@04 TOP 03/12/17 04:00 03/08/18 03:59 03/17/17 03:48 (Chlorhexidine 2% Cloth) 3 pack UNSCH PRN TOP 03/11/17 13:45 (Steph-Colace) 1 tab BID PO 03/11/17 21:00 03/16/17 22:52 (Milk Of Magnesia Liq) 30 ml Q12H PRN PO 03/11/17 13:45 (Senokot) 17.2 mg Q12H PRN PO 03/11/17 13:45 (Dulcolax Supp) 10 mg DAILY PRN RECTAL 03/11/17 13:45 (Lactulose Liq) 30 ml DAILY PRN PO 03/11/17 13:45 (Aspirin Chew) 81 mg DAILY CHEW 03/12/17 09:00 03/16/17 08:33 (Lanoxin) 0.25 mg HS PO 03/11/17 21:00 03/16/17 22:52 (Aricept) 5 mg HS PO 03/11/17 21:00 03/16/17 22:57 Potassium Chloride 10 meq 10 meq DAILY PO 03/12/17 09:00 03/16/17 08:32 Potassium Chloride 100 ml @ 50 mls/hr Q2H PRN IV 03/11/17 14:30 03/16/17 08:32 (KCl 20 Meq Premix Inj) 100 ml @ 50 mls/hr Q2H PRN IV 03/11/17 14:30 Potassium Bicarb/ Potassium Chloride 50 meq 50 meq UNSCH PRN PO 03/11/17 14:30 Potassium Chloride 100 ml @ 25 mls/hr UNSCH PRN IV 03/11/17 14:30 Potassium Chloride 100 ml @ 50 mls/hr Q2H PRN IV 03/11/17 14:30 (Magnesium Sulfate Inj/NS Inj) 100 ml @ 50 mls/hr UNSCH PRN IV 03/11/17 14:30 03/15/17 08:33 Magnesium Oxide 800 mg 800 mg UNSCH PRN PO 03/11/17 14:30 (Magnesium Sulfate Inj/NS Inj) 100 ml @ 50 mls/hr UNSCH PRN IV 03/11/17 14:30 03/15/17 21:37 Potassium Phosphate 2000 mg 2,000 mg Q4H PRN PO 03/11/17 14:30 (Sodium Phosphate Inj/NS 250 ml Inj) 250 ml @ 42 mls/hr UNSCH PRN IV 03/11/17 14:30 03/15/17 08:33 Potassium Phosphate 2000 mg 2,000 mg UNSCH PRN PO/TUBE 03/11/17 14:28 (Potassium Phosphate Inj/NS 250 ml Inj) 260 ml @ 42 mls/hr UNSCH PRN IV 03/11/17 14:28 (Diflucan) 100 mg DAILY PO 03/11/17 17:00 03/16/17 08:33 Haloperidol Lactate 2 mg 2 mg Q6H PRN IV 03/11/17 17:00 (DOPamine INJ PREMIX) 500 ml @ 6.075 mls/ hr TITRATE IV 03/12/17 10:45 03/13/17 11:18 Terbutaline Sulfate 1 mg 1 mg UNSCH PRN SQ 03/12/17 10:45 (Levophed-Dextrose Drip) 250 ml @ 0 mls/hr TITRATE IV 03/12/17 11:45 03/12/17 19:29 Chlorhexidine Gluconate 15 ml 15 ml BID@08,20 MT 03/12/17 20:00 03/16/17 22:34 Midazolam HCl 100 ml @ 0 mls/hr TITRATE IV 03/12/17 14:00 03/16/17 22:33 Milrinone Lactate 20 mg/Sodium Chloride 100 ml @ 6.07 mls/hr [id number] IV 03/12/17 13:59 03/16/17 14:31 (Neosynephrine Inj/D5W 500 ml Inj) 500 ml @ 0 mls/hr TITRATE IV 03/13/17 03:30 03/16/17 22:33 Amiodarone HCl 400 mg 400 mg Q12HR OG-TUBE 03/13/17 09:00 03/16/17 22:52 (Zosyn 3.375 Gm Premix) 50 ml @ 100 mls/hr Q6H IV 03/13/17 17:00 03/17/17 05:35 (Heparin Inj) 5,000 units Q12HR SQ 03/13/17 21:00 Hold 03/14/17 09:53 (D50w (Vial) Inj) 50 ml UNSCH PRN IV 03/14/17 08:30 (Glucagon Inj) 1 mg UNSCH PRN OTHER 03/14/17 08:30 (NovoLIN R SUPPLEMENTAL SCALE) 1 Q6H SQ 03/14/17 09:00 (Protonix Inj) 40 mg BID IV PUSH 03/14/17 21:00 03/16/17 22:51 Hydrocortisone Sodium Succinate 100 mg 100 mg Q8HR IV PUSH 03/14/17 14:30 03/17/17 05:35 (Zyvox 600 Mg Premix) 300 ml @ 300 mls/hr Q12H IV 03/14/17 15:00 03/17/17 03:02 Vital Signs / I&O Vital Signs Date Time Temp Pulse Resp B/P Pulse Ox O2 Delivery O2 Flow Rate FiO2 03/17/17 06:00 79 03/17/17 04:00 97.8 85 14 116/66 100 135/61 03/17/17 04:00 85 03/17/17 04:00 35 03/17/17 03:05 100 35 03/17/17 02:00 86 03/17/17 01:29 100 35 03/17/17 00:00 35 03/17/17 00:00 83 03/17/17 00:00 98.3 83 14 109/59 100 129/57 03/16/17 22:44 100 35 03/16/17 22:00 84 03/16/17 20:59 100 35 03/16/17 20:00 83 03/16/17 20:00 35 03/16/17 20:00 98.2 83 14 108/57 100 128/58 03/16/17 18:00 80 03/16/17 16:00 80 03/16/17 16:00 98.6 85 16 103/56 100 03/16/17 16:00 35 03/16/17 14:18 100 35 03/16/17 14:00 80 03/16/17 12:00 80 03/16/17 12:00 35 03/16/17 12:00 98.6 84 16 98/57 100 115/52 03/16/17 11:21 100 35 03/16/17 10:00 80 I/O 03/16/17 03/16/17 03/16/17 03/17/17 03/17/17 03/17/17 06:59 14:59 22:59 06:59 14:59 22:59 Intake Total 950 ml 545 ml 668 ml Output Total 275 ml 500 ml 275 ml Balance 675 ml 45 ml 393 ml IV Total 950 ml 529 ml 580 ml Tube Feeding 16 ml 88 ml Output Urine Total 275 ml 500 ml 275 ml # Bowel Movements 0 0 0 Physical Exam GENERAL: Well developed, well nourished. No acute distress. HEENT: Jugular venous pressure is normal. CHEST: Lungs decreased CTA to auscultation bilaterally. Unlabored respiratory effort. CARDIAC: regular rate and rhythm without S3, S4, or murmur. ABDOMEN: Soft, nontender, EXTREMITIES: No clubbing, Laboratory Laboratory Tests Test 03/16/17 03/17/17 13:22 05:45 Potassium Level 3.8 MEQ/L 4.1 MEQ/L Phosphorus Level 4.7 MG/DL 4.5 MG/DL White Blood Count 10.8 TH/MM3 Red Blood Count 3.32 MIL/MM3 Hemoglobin 10.6 GM/DL Hematocrit 31.4 % Mean Corpuscular Volume 94.6 FL Mean Corpuscular Hemoglobin 31.9 PG Mean Corpuscular Hemoglobin 33.7 % Concent Red Cell Distribution Width 15.9 % Platelet Count 410 TH/MM3 Mean Platelet Volume 8.7 FL Neutrophils (%) (Auto) 89.6 % Lymphocytes (%) (Auto) 5.1 % Monocytes (%) (Auto) 5.3 % Eosinophils (%) (Auto) 0.0 % Basophils (%) (Auto) 0.0 % Neutrophils # (Auto) 9.7 TH/MM3 Lymphocytes # (Auto) 0.6 TH/MM3 Monocytes # (Auto) 0.6 TH/MM3 Eosinophils # (Auto) 0.0 TH/MM3 Basophils # (Auto) 0.0 TH/MM3 CBC Comment DIFF FINAL Differential Comment Sodium Level 133 MEQ/L Chloride Level 103 MEQ/L Carbon Dioxide Level 18.0 MEQ/L Anion Gap 12 MEQ/L Blood Urea Nitrogen 36 MG/DL Creatinine 1.47 MG/DL Estimat Glomerular Filtration 34 ML/MIN Rate Random Glucose 130 MG/DL Calcium Level 8.4 MG/DL Magnesium Level 3.1 MG/DL Assessment and Plan Assessment and Plan AF- fair rate control, decrease amio NSTEMI- EF 25%, -continue conservative measures -BB and BUBBA remain relatively contraindicated, on pressors and milrinone -poor/not revasc candidate secondary to comorbid conditions Cardiomyopathy- as above, on milrinone resp - on vent Anemia UTI sepsis- CCM- ID Prognosis is poor with multisystem failure (>50%)- discussed with daughter yesterday Xiao Keys MD Mar 17, 2017 08:02
[2017-03-17] MEDS: CHLORHEXIDINE 0.12% (ORAL KIT) 15 ML CUP MT SCH ×2 (08:46→21:45)
[2017-03-17] MEDS: AMIODARONE 200 MG TAB OG-TUBE SCH ×2 (08:47→21:47)
[2017-03-17] MEDS: PANTOPRAZOLE SODIUM 40 MG VIAL IV PUSH SCH ×2 (08:47→21:46)
[2017-03-17] MEDS: ASPIRIN 81 MG CHEW TAB CHEW SCH (08:47)
[2017-03-17] MEDS: FLUCONAZOLE 100 MG TAB PO SCH (08:47)
[2017-03-17] MEDS: DOCUSATE SODIUM 50 MG/SENNA 8.6 MG TAB PO SCH ×2 (08:47→21:47)
[2017-03-17] MEDS: POTASSIUM CHLORIDE 10 MEQ CAP PO SCH (08:51)
--- NOTE | 2017-03-17 09:40 | HHI.CCPN ---
Subjective Remarks/Hospital Course Patient is an 82-year-old female with past medical history significant for recurrent UTIs, atrial fibrillation, hypertension, dyslipidemia, dementia who was transferred from [facility] emergency department after being diagnosed for NSTEMI. She presented with chest pain and EKG showed sinus tachycardia, and troponin was elevated at 4.43. Patient was given aspirin (by EMS) and started on IV heparin infusion. Patient was transferred to [facility] ICU per Dr. Keys's request. Other abnormal labs include BNP of 1330 and potassium of 3. Previous echo showed an ejection fraction of 45%. I evaluated the patient in the ICU. Appears in moderate distress, tachypneic, tachycardic, but denies chest pain (when asked in [place] by RN). Patient was seen by Dr. Keys in the ICU, not a candidate for cardiac catheterization on interventions at this time. 2-D echo is pending. UA shows evidence of UTI. Started on cefepime and Diflucan (yeast present in UA). Repeat troponin and lactic acid pending at this time. SUBJ 03/12: I rounded on patient at about 0830 AM, patient was communicative tachypneic but not in severe distress. I was emergently called to the bedside at 10:30 AM patient was unresponsive agonal breathing with blood pressure 60/29 , bradycardic. Emergently started on dopamine. Patient was not protecting airway and I emergently intubated and placed on mechanical ventilation. An emergency left subclavian central line also placed. Levophed was added due to persistent hypotension. Patient appears to be in severe cardiogenic shock. EF 15 -20% down from 40% on 03/04/17. Patient also has moderate to severe MR, moderate to severe TR with moderate to severe pulmonary hypertension. I have discussed with Dr. Keys, she does not think patient is a candidate for any invasive therapy due to advanced age and comorbidities including dementia. I have updated daughter Cata 03/13: Remains intubated sedated critically ill. Remains on 3 pressors (dopamine , Neftali-Synephrine, milrinone). Urine output diminishing. Patient is in multiorgan failure prognosis poor. Family wants to continue full aggressive care palliative care is following. Urine culture showing group D enterococcus and Soledad. Cefepime discontinued Zosyn started along with vancomycin and continue Diflucan 03/14 Patient is sedated with versed and intubated. On Neosyn 200 mics and Milrinone. T: 100.0 last night. Off Dopamine 03/15 Patient remains intubated and sedated with Versed 5mg/hr, Nesoyn down 112 mics and on Milrinone. Afebrile. s/p transfusion 1unit PRBC yesterday. 03/16 No events overnight. Remains sedated with versed and intubated. On Neosyn and Milrinone. 03/17 Patient is intubated and sedated, Neosyn 100mics and Milrinone. Afebrile. Objective Vital Signs Date Time Temp Pulse Resp B/P Pulse Ox O2 Delivery O2 Flow Rate FiO2 03/17/17 09:06 100 35 03/17/17 06:00 79 03/17/17 04:00 97.8 14 116/66 135/61 03/13/17 20:04 Ventilator Intake and Output 03/16/17 03/16/17 03/17/17 08:00 16:00 00:00 Intake Total 950 ml 545 ml Output Total 275 ml 500 ml Balance 675 ml 45 ml Result Diagram: 03/17/17 0545 03/17/17 0545 Other Results Laboratory Tests Test 03/16/17 03/17/17 13:22 05:45 Potassium Level 3.8 MEQ/L 4.1 MEQ/L Phosphorus Level 4.7 MG/DL 4.5 MG/DL White Blood Count 10.8 TH/MM3 Red Blood Count 3.32 MIL/MM3 Hemoglobin 10.6 GM/DL Hematocrit 31.4 % Mean Corpuscular Volume 94.6 FL Mean Corpuscular Hemoglobin 31.9 PG Mean Corpuscular Hemoglobin 33.7 % Concent Red Cell Distribution Width 15.9 % Platelet Count 410 TH/MM3 Mean Platelet Volume 8.7 FL Neutrophils (%) (Auto) 89.6 % Lymphocytes (%) (Auto) 5.1 % Monocytes (%) (Auto) 5.3 % Eosinophils (%) (Auto) 0.0 % Basophils (%) (Auto) 0.0 % Neutrophils # (Auto) 9.7 TH/MM3 Lymphocytes # (Auto) 0.6 TH/MM3 Monocytes # (Auto) 0.6 TH/MM3 Eosinophils # (Auto) 0.0 TH/MM3 Basophils # (Auto) 0.0 TH/MM3 CBC Comment DIFF FINAL Differential Comment Sodium Level 133 MEQ/L Chloride Level 103 MEQ/L Carbon Dioxide Level 18.0 MEQ/L Anion Gap 12 MEQ/L Blood Urea Nitrogen 36 MG/DL Creatinine 1.47 MG/DL Estimat Glomerular Filtration 34 ML/MIN Rate Random Glucose 130 MG/DL Calcium Level 8.4 MG/DL Magnesium Level 3.1 MG/DL Imaging Last Impressions Abdomen Ultrasound 03/16/17 0000 Signed Impressions: Service Date/Time: Thursday, March 16, 2017 20:35 - CONCLUSION: 1. Right renal cyst and multiple hepatic cysts. 2. Echogenic lesion in liver measures 1.8 cm likely hemangioma. Contrasted MRI may be warranted for confirmation. 3. Cholelithiasis. Evans Augustin MD Chest X-Ray 03/14/17 0600 Signed Impressions: Service Date/Time: Tuesday, March 14, 2017 03:48 - CONCLUSION: 1. Cardiomegaly and findings of vascular congestion without overt failure. Bilateral lower lobe atelectasis versus pneumonia. This is new when compared with the prior exam. Harvey Cheng MD Head CT 03/12/17 0000 Signed Impressions: Service Date/Time: Sunday, March 12, 2017 13:00 - CONCLUSION: 1. Cerebral atrophy and chronic ischemic small vessel vasculopathy. Evans Augustin MD Objective Remarks GENERAL: 82-year-old female acutely and chronically critically ill, on vent SKIN: Warm and dry. HEAD: Atraumatic. EYES: Pupils equal and round. No scleral icterus. ENT: No nasal bleeding or discharge. Orotracheally intubated NECK: Positive JVD CARDIOVASCULAR: Tachycardic, hypotensive. Systolic murmur at the apex. Remains on milrinone, dopamine and Neftali-Synephrine RESPIRATORY: Air entry equal bilaterally. Few basilar crackles GASTROINTESTINAL: Abdomen soft, non-tender, nondistended. NEUROLOGICAL: Intubated sedated. Occasionally opens eyes. Moving all extremities not following commands on sedation A/P Assessment and Plan NEURO: Acute encephalopathy Dementia Versed infusion for sedation, maintain ventilator synchrony. Daily sedation vacation. Monitor neuro status. Continue home Aricept Encephalopathy most likely secondary to metabolic causes RESP: Acute respiratory failure History of COPD Pulmonary artery hypertension Continue with vent support and keep sat >92% Ventilator bundle. DuoNeb scheduled and when necessary SBT daily as carley, Check CXR/ABG CV: NSTEMI Cardiogenic shock Acute systolic heart failure Lactic acidosis Ischemic cardiomyopathy with ejection fraction 15-20% Moderate to severe mitral and tricuspid regurgitation History of A. fib s/p 2.5L bolus 03/11. All IV fluids discontinued due to pulmonary edema Ejection fraction 15-20% , in comparison to echocardiogram on 03/04/17 EF 40% Wean down pressors ( On Neosyn 110 mics, Milrinone) keep MAP>65mmHg On stress dose steroids- HC 100 mg IV Q8 Arterial line And flow track monitoring Amiodarone 400mg Q12 started by Dr. Keys, On Digoxin 0.25mg daily, Dig level: 1.4 on 03/14 Lactic acid trending down 1.9 03/14 GI: IV Protonix 40mg BID s/p transfusion 1unit PRBC, GI is following. Tube feeds started yesterday but on hold now for high residuals. Place on Reglan 5mg IV Q8 : Monitor renal function , I/O's, electrolytes replacement per protocol. Cr: 1.47 today from 1.28 , UOP: 775 ml in 24 hrs ID: Severe sepsis UTI 03/11 Urine culture growing Soledad and group D enterococcus(VRE) 03/14 Urine cx: C. Albicans Continue abx( Zosyn, Diflucan, Zyvox) monitor for signs of infections ( Fever, WBC) ID is following- Dr. Domínguez HEME: Monitor CBC, CMP, coags s/p [id number] PRBC 03/14 ENDO: SSI for glycemic control Electrolyte replacement protocol PROPH: Bilateral lower extremity SCDs. SQ Heparin on hold for anemia requiring blood transfusion, Protonix LINES: Left subclavian central line, Right Femoral Art line- placed 03/12 CC time 30 min excluding procedures Palliative care following Deepthi Griffiths MD Mar 17, 2017 09:40
[2017-03-17 09:53] LABS: BLOOD GAS BASE EXCESS -8.8 mmol/L (-2-2); BLOOD GAS CARBOXYHEMOGLOBIN 1.4 % (0-4); BLOOD GAS HCO3 15 mmol/L (22-26); BLOOD GAS O2 HGB SATURATION 97 % (90-100); BLOOD GAS OXYGEN CONTENT 13.4 Vol % (12.0-20.0); BLOOD GAS PCO2 27 mmHg (38-42); BLOOD GAS PO2 134 mmHg (61-120); BLOOD GAS TOTAL HGB 9.7 G/DL (12.0-16.0); TEMP CORR TO 98.6
[2017-03-17 09:56] LABS: CRITICAL VALUE YES; OXYGEN DEVICE VENTILATOR
[2017-03-17 09:57] LABS: DRAW SITE ART LINE; FIO2 35 %; STAT NO; ULNAR PULSE PRESENT; VENT SETTINGS AC14/500/PEEP5
--- NOTE | 2017-03-17 10:12 | RADRPT ---
EXAM DATE/TIME: 03/17/2017 09:37 [facility] COMPARISON: CHEST SINGLE AP, March 14, 2017, 3:48. INDICATIONS : Shortness of breath. MEDICAL HISTORY : Hypertension. SURGICAL HISTORY : None. ENCOUNTER: Subsequent ACUITY: 1 week PAIN SCORE: Non-responsive. LOCATION: Bilateral chest FINDINGS: ET tube nasogastric tube and central venous catheter in good position. The right lung is clearing. Persistent parenchymal changes remains left base. There is no pneumothorax. CONCLUSION: 1. Persistent parenchymal changes left base 2. Support apparatus in good position without pneumothorax. Jj Gee MD FACR on March 17, 2017 at 10:09 Board Certified Radiologist. This report was verified electronically.
[2017-03-17] MEDS: METOCLOPRAMIDE HCL 10 MG/2 ML VIAL IV PUSH SCH ×3 (10:21→21:48)
[2017-03-17] MEDS: MILRINONE INJ 20 MG in SODIUM CHLORIDE 0.9% INJ 80 ML IV SCH (10:22)
[2017-03-17] MEDS ORDERED: SODIUM BICARBONATE 8.4% INJ 50 MEQ/50 ML SYR IV PUSH ONE (11:00)
--- NOTE | 2017-03-17 12:54 | HHI.GIFU ---
Subjective Remarks Patient is sedated on a vent. No obvious bleeding reported by nurse, still on pressors, h&h stable (GueratriniRuthann) Objective Vitals I&O Vital Signs Date Time Temp Pulse Resp B/P Pulse Ox O2 Delivery O2 Flow Rate FiO2 03/17/17 12:04 100 35 03/17/17 09:06 100 35 03/17/17 06:00 79 03/17/17 04:00 97.8 85 14 116/66 100 135/61 03/17/17 04:00 85 03/17/17 04:00 35 03/17/17 03:05 100 35 03/17/17 02:00 86 03/17/17 01:29 100 35 03/17/17 00:00 35 03/17/17 00:00 83 03/17/17 00:00 98.3 83 14 109/59 100 129/57 03/16/17 22:44 100 35 03/16/17 22:00 84 03/16/17 20:59 100 35 03/16/17 20:00 83 03/16/17 20:00 35 03/16/17 20:00 98.2 83 14 108/57 100 128/58 03/16/17 18:00 80 03/16/17 16:00 80 03/16/17 16:00 98.6 85 16 103/56 100 03/16/17 16:00 35 03/16/17 14:18 100 35 03/16/17 14:00 80 I/O 03/16/17 03/16/17 03/16/17 03/17/17 03/17/17 03/17/17 06:59 14:59 22:59 06:59 14:59 22:59 Intake Total 950 ml 545 ml 668 ml Output Total 275 ml 500 ml 275 ml Balance 675 ml 45 ml 393 ml IV Total 950 ml 529 ml 580 ml Tube Feeding 16 ml 88 ml Output Urine Total 275 ml 500 ml 275 ml # Bowel Movements 0 0 0 Laboratory Laboratory Tests Test 03/16/17 03/17/17 03/17/17 13:22 05:45 09:38 Potassium Level 3.8 4.1 Phosphorus Level 4.7 4.5 White Blood Count 10.8 Red Blood Count 3.32 Hemoglobin 10.6 Hematocrit 31.4 Mean Corpuscular Volume 94.6 Mean Corpuscular Hemoglobin 31.9 Mean Corpuscular Hemoglobin 33.7 Concent Red Cell Distribution Width 15.9 Platelet Count 410 Mean Platelet Volume 8.7 Neutrophils (%) (Auto) 89.6 Lymphocytes (%) (Auto) 5.1 Monocytes (%) (Auto) 5.3 Eosinophils (%) (Auto) 0.0 Basophils (%) (Auto) 0.0 Neutrophils # (Auto) 9.7 Lymphocytes # (Auto) 0.6 Monocytes # (Auto) 0.6 Eosinophils # (Auto) 0.0 Basophils # (Auto) 0.0 CBC Comment DIFF FINAL Differential Comment Sodium Level 133 Chloride Level 103 Carbon Dioxide Level 18.0 Anion Gap 12 Blood Urea Nitrogen 36 Creatinine 1.47 Estimat Glomerular Filtration 34 Rate Random Glucose 130 Calcium Level 8.4 Magnesium Level 3.1 Blood Gas Puncture Site ART LINE Blood Gas Patient Temperature 98.6 Blood Gas HCO3 15 Blood Gas Base Excess -8.8 Blood Gas Oxygen Saturation 97 Arterial Blood pH 7.37 Arterial Blood Partial 27 Pressure CO2 Arterial Blood Partial 134 Pressure O2 Arterial Blood Oxygen Content 13.4 Arterial Blood 1.4 Carboxyhemoglobin Arterial Blood Methemoglobin 1.0 Blood Gas Hemoglobin 9.7 Oxygen Delivery Device VENTILATOR Blood Gas Ventilator Setting AC14/500/PEEP5 Blood Gas Inspired Oxygen 35 Date/Time Procedure Status Source Growth 03/14/17 13:17 Stool Occult Blood (DANIAL) - Final Complete Stool Stool HEMOCCULT NEGATIVE 03/14/17 08:59 Urine Culture - Final Complete Urine Catheterized Urine Seth Albicans 03/14/17 08:52 Gram Stain - Final Complete Sputum Endotracheal 03/14/17 08:52 Sputum Culture - Final Complete Sputum Endotracheal MODERATE GROWTH NORMAL RESPIRATORY FL... 03/14/17 08:22 Gram Stain Received Sputum Endotracheal Pending 03/14/17 08:22 Sputum Culture Received Sputum Endotracheal Pending Imaging Last Impressions Chest X-Ray 03/17/17 0000 Signed Impressions: Service Date/Time: Friday, March 17, 2017 09:37 - CONCLUSION: 1. Persistent parenchymal changes left base 2. Support apparatus in good position without pneumothorax. Jj Gee MD FACR Abdomen Ultrasound 03/16/17 0000 Signed Impressions: Service Date/Time: Thursday, March 16, 2017 20:35 - CONCLUSION: 1. Right renal cyst and multiple hepatic cysts. 2. Echogenic lesion in liver measures 1.8 cm likely hemangioma. Contrasted MRI may be warranted for confirmation. 3. Cholelithiasis. Evans Augustin MD Head CT 03/12/17 0000 Signed Impressions: Service Date/Time: Sunday, March 12, 2017 13:00 - CONCLUSION: 1. Cerebral atrophy and chronic ischemic small vessel vasculopathy. Evans Augustin MD Physical Exam HEENT: Normocephalic; atraumatic; no jaundice. CHEST: OETT to vent. Decreased lung sounds. CARDIAC: RRR ABDOMEN: Soft, nondistended, nontender; no hepatosplenomegaly; bowel sounds x 4 quadrants. EXTREMITIES: Generalized edema SKIN: Normal; no rash; no jaundice. TRASH COLLECTOR: Sedated on vent. (Ruthann Elise) Assessment and Plan Plan ASSESSMENT: - Anemia with drop in Hgb. No obvious GI bleeding. No vomiting. No rectal bleeding. She was noted to have an HH of 9.9/30.3 on admission and this had been slowly been trending down. S/P transfusion 03/14. Daughter, Cata Yin , states her mother was recently hospitalized at [facility] for GIB and evaluated with egd/colonoscopy and found to have an ulcer. She reports that she was not happy with the care her mother was receiving and then transferred her to [facility] for further tx. She has been on Protonix at home. She was on heparin here, until today when it was placed on hold. Protonix BID dosing. Hemoccult stool negative. Monitor HH, tx as necessary. Consider repeat EGD if active bleeding/drop in hgb. Will try to obtain records from recent hospitalization for gi bleeding. - NSTEMI, Atrial fibrillation, CMP. Cardiology following, not a candidate for revascularization. Medical management. - Respiratory failure. Vent per [facility]. - Sepsis, UTI. Urine cx on admission with seth albicans and enterococcus faecium. Zyvox, Zosyn BCx no growth 2 days, sputum culture shows moderate growth of normal respiratory ashwin at 24 hours, urine culture shows seth albicans and enterococcus faecium Vre. - [place] with electrolyte abnormalities. Per CCM - Dementia. Per [facility] 03-17-17 H&H today 10.6/31.4, no rectal bleeding, no N/V, no hematemesis, still on pressors US revealed liver lesion, and recommended MRI. Liver enzymes have normalized PLAN - TF at 10cc/hour and increase to goal rate - Cont. Protonix 40mg IV BID - Monitor HH - Transfuse as necessary - Monitor labs - MRI for f/u on liver lesion, this could be done as an OP. - Supportive care - Further recommendations to follow based on results of above Patient seen and examined by Dr. Smith and myself and this note is written on his behalf (Ruthann Elise) Physician Comments Patient seen and examined Agree with above Continue with current supportive care Monitor labs (Kadeem Smith MD) Ruthann Elise Mar 17, 2017 12:54 Kadeem Smith MD Mar 17, 2017 22:30
--- NOTE | 2017-03-17 16:49 | HHI.HCPN ---
Reason for visit a. To assist with evaluation and management of symptoms including: Shortness of breath and debility. b. To assist medical decision maker(s) with: better understanding of current medical conditions; weighing benefits/burdens of medical treatment options; making medical treatment decisions. . Subjective/Interval History Mrs. Franco is a 82-year-old female with a past medical history of dementia originally diagnosed in 2013, recurrent UTIs, urinary retention, hypertension and atrial fibrillation. Patient presented to ED on 03/11/17 via EMS for evaluation of chest pain. Laboratory workup indicating troponin 4.43 and BNP 1330. EKG revealing sinus tachycardia. Patient was transfer to [facility] for further management of non-STEMI. She was seen by Dr. Keys in the ICU, not a candidate for any invasive procedures. Medical management recommended. Echocardiogram showing EF of 20% from the echo on 03/04/17 showing EF of 45%. In addition, moderate to severe mitral valve regurgitation. Clinical course complicated by severe cardiac shock, intubation and mechanical ventilation in addition to vasopressors. Palliative care has been consulted for further clarifications of goals of care given patient's worsening clinical condition and poor prognosis. Patient seen in ICU. She remained orally intubated on mechanical ventilation. Unresponsive to verbal or tactile stimuli, sedated with Versed. Sedation was decreased secondary to hypotension. Remains on Neftali-Synephrine and Milrinone drip. H&H stable, no signs of acute bleeding. GI following. Tube feedings started today. Urine culture positive for Soledad and VRE. Infectious disease following. Chest x-ray revealed a persistent parenchymal changes to the left base. Patient afebrile, 35% FiO2, oxygen saturation at 100%. C. difficile negative. Poor prognosis secondary to MSOF, sepsis, cardiogenic shock. Telephone conversation with patient's daughter day and. Medical update provided. Patient tells me that she is under the impression that patient is stable, getting better. Discussed with daughter that patient is in critical condition on 2 pressors and life support = remains critically ill with multisystem organ failure. Daughter tells me that she had an opportunity to talk with cardiology, Dr. Keys over the weekend. Daughter receptive to goals of care conversation with palliative care tomorrow 03/18/17 at 11 AM. Case discussed with bedside JUWAN Ray. . Family/friend interactions See interval note. . Advance Directives Living Will: Never completed Health Care Surrogate: Completed, but not made available Durable Power of Clipper Machine: Completed, but not made available Advance Directive Specifics Health Care Surrogate(s): As per daughter Cata Yin, she is the designated healthcare surrogate. Pending designation of healthcare surrogate/living will. . Documented care wishes: Pending copy of living will. . Significant change in goals: Full code. Continue full aggressive care. . Objective Vital Signs Date Time Temp Pulse Resp B/P Pulse Ox O2 Delivery O2 Flow Rate FiO2 03/17/17 16:22 100 35 03/17/17 12:04 100 35 03/17/17 09:06 100 35 03/17/17 06:00 79 03/17/17 04:00 97.8 85 14 116/66 100 135/61 03/17/17 04:00 85 03/17/17 04:00 35 03/17/17 03:05 100 35 03/17/17 02:00 86 03/17/17 01:29 100 35 03/17/17 00:00 35 03/17/17 00:00 83 03/17/17 00:00 98.3 83 14 109/59 100 129/57 03/16/17 22:44 100 35 03/16/17 22:00 84 03/16/17 20:59 100 35 03/16/17 20:00 83 03/16/17 20:00 35 03/16/17 20:00 98.2 83 14 108/57 100 128/58 03/16/17 18:00 80 Intake & Output 03/17/17 03/17/17 06:59 18:59 Intake Total 1213 ml Output Total 775 ml Balance 438 ml IV Total 1109 ml Tube Feeding 104 ml Output Urine Total 775 ml # Bowel Movements 0 Physical Exam CONSTITUTIONAL/GENERAL: This is an elderly, frail female who is orally intubated on mechanical ventilation. TUBES/LINES/DRAINS: PIV's, ETT, central line to left upper chest, SCDs, Abrams catheter, bilateral soft wrist restraints. SKIN: No jaundice, rashes, or lesions. Ecchymoses on upper extremities. No wounds seen anteriorly. Not diaphoretic. HEAD: Atraumatic. Normocephalic. EYES: Pupils equal and round and reactive, sluggish. No scleral icterus. No injection or drainage. ENT: Unable to assess hearing secondary to clinical condition. Nose without bleeding or purulent drainage. Moist oral mucosa. NECK: Trachea midline. Supple. CARDIOVASCULAR: regular rate and rhythm, systolic murmur. Faint peripheral pulses. Mild mottling of the toes and fingers. RESPIRATORY/CHEST: intubated on mechanical ventilation. Breath sounds diminished bilaterally. GASTROINTESTINAL: Abdomen soft, nondistended. Bowel sounds present. GENITOURINARY: Without palpable bladder distension. Abrams catheter in place. MUSCULOSKELETAL: Mild mottling of the toes and fingers noted. NEUROLOGICAL: Unresponsive to verbal or tactile stimuli. No purposeful movement noted. PSYCHIATRIC: Unable to evaluate secondary to clinical condition. . Diagnostic Tests Laboratory Laboratory Tests Test 03/14/17 03/15/17 03/16/17 03/16/17 17:10 04:10 03:15 05:40 Hemoglobin 9.9 GM/DL 10.3 GM/DL 9.9 GM/DL (11.6-15.3) (11.6-15.3) (11.6-15.3) Hematocrit 29.2 % 30.6 % 28.8 % (35.0-46.0) (35.0-46.0) (35.0-46.0) White Blood Count 10.0 TH/MM3 12.0 TH/MM3 (4.0-11.0) (4.0-11.0) Red Blood Count 3.24 MIL/MM3 3.10 MIL/MM3 (4.00-5.30) (4.00-5.30) Mean Corpuscular Volume 94.4 FL 92.8 FL (80.0-100.0) (80.0-100.0) Mean Corpuscular Hemoglobin 31.9 PG 32.0 PG (27.0-34.0) (27.0-34.0) Mean Corpuscular Hemoglobin 33.8 % 34.4 % Concent (32.0-36.0) (32.0-36.0) Red Cell Distribution Width 15.9 % 15.9 % (11.6-17.2) (11.6-17.2) Platelet Count 226 TH/MM3 349 TH/MM3 (150-450) (150-450) Mean Platelet Volume 9.6 FL 9.2 FL (7.0-11.0) (7.0-11.0) Neutrophils (%) (Auto) 90.2 % 90.0 % (16.0-70.0) (16.0-70.0) Lymphocytes (%) (Auto) 5.2 % 4.0 % (9.0-44.0) (9.0-44.0) Monocytes (%) (Auto) 4.3 % (0.0-8.0) 5.9 % (0.0-8.0) Eosinophils (%) (Auto) 0.1 % (0.0-4.0) 0.0 % (0.0-4.0) Basophils (%) (Auto) 0.2 % (0.0-2.0) 0.1 % (0.0-2.0) Neutrophils # (Auto) 9.0 TH/MM3 10.8 TH/MM3 (1.8-7.7) (1.8-7.7) Lymphocytes # (Auto) 0.5 TH/MM3 0.5 TH/MM3 (1.0-4.8) (1.0-4.8) Monocytes # (Auto) 0.4 TH/MM3 0.7 TH/MM3 (0-0.9) (0-0.9) Eosinophils # (Auto) 0.0 TH/MM3 0.0 TH/MM3 (0-0.4) (0-0.4) Basophils # (Auto) 0.0 TH/MM3 0.0 TH/MM3 (0-0.2) (0-0.2) CBC Comment DIFF FINAL DIFF FINAL Differential Comment Sodium Level 135 MEQ/L 136 MEQ/L (136-145) (136-145) Potassium Level 4.2 MEQ/L 2.9 MEQ/L (3.5-5.1) (3.5-5.1) Chloride Level 105 MEQ/L 104 MEQ/L (98-107) (98-107) Carbon Dioxide Level 17.7 MEQ/L 18.7 MEQ/L (21.0-32.0) (21.0-32.0) Anion Gap 12 MEQ/L (5-15) 13 MEQ/L (5-15) Blood Urea Nitrogen 31 MG/DL (7-18) 33 MG/DL (7-18) Creatinine 1.25 MG/DL 1.28 MG/DL (0.50-1.00) (0.50-1.00) Estimat Glomerular Filtration 41 ML/MIN (>89) 40 ML/MIN (>89) Rate Random Glucose 189 MG/DL 119 MG/DL (74-106) (74-106) Calcium Level 9.0 MG/DL 8.8 MG/DL (8.5-10.1) (8.5-10.1) Phosphorus Level 2.3 MG/DL 6.2 MG/DL (2.5-4.9) (2.5-4.9) Magnesium Level 1.4 MG/DL 3.5 MG/DL (1.5-2.5) (1.5-2.5) Total Bilirubin 0.9 MG/DL 0.7 MG/DL (0.2-1.0) (0.2-1.0) Aspartate Amino Transf 43 U/L (15-37) 18 U/L (15-37) (AST/SGOT) Alanine Aminotransferase 53 U/L (10-53) 39 U/L (10-53) (ALT/SGPT) Alkaline Phosphatase 62 U/L (45-117) 58 U/L (45-117) Total Protein 5.7 GM/DL 5.2 GM/DL (6.4-8.2) (6.4-8.2) Albumin 2.3 GM/DL 2.0 GM/DL (3.4-5.0) (3.4-5.0) Test 03/16/17 03/17/17 03/17/17 13:22 05:45 09:38 Potassium Level 3.8 MEQ/L 4.1 MEQ/L (3.5-5.1) (3.5-5.1) Phosphorus Level 4.7 MG/DL 4.5 MG/DL (2.5-4.9) (2.5-4.9) White Blood Count 10.8 TH/MM3 (4.0-11.0) Red Blood Count 3.32 MIL/MM3 (4.00-5.30) Hemoglobin 10.6 GM/DL (11.6-15.3) Hematocrit 31.4 % (35.0-46.0) Mean Corpuscular Volume 94.6 FL (80.0-100.0) Mean Corpuscular Hemoglobin 31.9 PG (27.0-34.0) Mean Corpuscular Hemoglobin 33.7 % Concent (32.0-36.0) Red Cell Distribution Width 15.9 % (11.6-17.2) Platelet Count 410 TH/MM3 (150-450) Mean Platelet Volume 8.7 FL (7.0-11.0) Neutrophils (%) (Auto) 89.6 % (16.0-70.0) Lymphocytes (%) (Auto) 5.1 % (9.0-44.0) Monocytes (%) (Auto) 5.3 % (0.0-8.0) Eosinophils (%) (Auto) 0.0 % (0.0-4.0) Basophils (%) (Auto) 0.0 % (0.0-2.0) Neutrophils # (Auto) 9.7 TH/MM3 (1.8-7.7) Lymphocytes # (Auto) 0.6 TH/MM3 (1.0-4.8) Monocytes # (Auto) 0.6 TH/MM3 (0-0.9) Eosinophils # (Auto) 0.0 TH/MM3 (0-0.4) Basophils # (Auto) 0.0 TH/MM3 (0-0.2) CBC Comment DIFF FINAL Differential Comment Sodium Level 133 MEQ/L (136-145) Chloride Level 103 MEQ/L (98-107) Carbon Dioxide Level 18.0 MEQ/L (21.0-32.0) Anion Gap 12 MEQ/L (5-15) Blood Urea Nitrogen 36 MG/DL (7-18) Creatinine 1.47 MG/DL (0.50-1.00) Estimat Glomerular Filtration 34 ML/MIN (>89) Rate Random Glucose 130 MG/DL (74-106) Calcium Level 8.4 MG/DL (8.5-10.1) Magnesium Level 3.1 MG/DL (1.5-2.5) Blood Gas Puncture Site ART LINE Blood Gas Patient Temperature 98.6 Blood Gas HCO3 15 mmol/L (22-26) Blood Gas Base Excess -8.8 mmol/L (-2-2) Blood Gas Oxygen Saturation 97 % (90-100) Arterial Blood pH 7.37 (7.380-7.420) Arterial Blood Partial 27 mmHg (38-42) Pressure CO2 Arterial Blood Partial 134 mmHg Pressure O2 (61-120) Arterial Blood Oxygen Content 13.4 Vol % (12.0-20.0) Arterial Blood 1.4 % (0-4) Carboxyhemoglobin Arterial Blood Methemoglobin 1.0 % (0-2) Blood Gas Hemoglobin 9.7 G/DL (12.0-16.0) Oxygen Delivery Device VENTILATOR Blood Gas Ventilator Setting AC14/500/PEEP5 Blood Gas Inspired Oxygen 35 % Result Diagram: 03/17/17 0545 03/17/17 0545 Imaging Last 48 hours Impressions Chest X-Ray 03/17/17 0000 Signed Impressions: Service Date/Time: Friday, March 17, 2017 09:37 - CONCLUSION: 1. Persistent parenchymal changes left base 2. Support apparatus in good position without pneumothorax. Jj Gee MD FACR Abdomen Ultrasound 03/16/17 0000 Signed Impressions: Service Date/Time: Thursday, March 16, 2017 20:35 - CONCLUSION: 1. Right renal cyst and multiple hepatic cysts. 2. Echogenic lesion in liver measures 1.8 cm likely hemangioma. Contrasted MRI may be warranted for confirmation. 3. Cholelithiasis. Evans Augustin MD Procedures * 03/12/17 -intubation * 03/12/17 -central line placement . Assessment and Plan Disease Oriented Problem List: (1) Severe sepsis (2) Lactic acidosis (3) Encephalopathy acute (4) Urinary tract infection (5) NSTEMI (non-ST elevation myocardial infarction) (6) CHF (congestive heart failure) (7) Dementia (8) Atrial fibrillation Symptom Scale: (1) Shortness of breath 0-10 Scale: Unable to quantify Comment: Remains orally intubated on mechanical ventilation. (2) Debility 0-10 Scale: Unable to quantify Comment: Progressive, worsening since December. Pertinent Non-Medical Issues Psychosocial: . Originally from [place]. has 2 daughters. Spiritual: Christianity oliva. Legal: Daughter reports that advance directives have been completed. Pending copy. Ethical issues impacting care: Patient unable to participate in medical decision -making. Pending copy of living will and designation of healthcare surrogate. Patient has 2 daughters, daughter Cata claims that she is the designated healthcare surrogate. Pending copy of documents. . Important Contacts Daughter Cata Yin & Family friend Kristen Jolly [phone]. . Prognosis Mrs. Franco is a 82-year-old female with a past medical history of dementia originally diagnosed in 2013, recurrent UTIs, urinary retention, hypertension and atrial fibrillation. Patient with recent prolonged hospitalizations since December 2016. Admitted secondary to non-STEMI. Clinical course complicated by septic/cardiogenic shock, acute respiratory failure, lactic acidosis, congestive heart failure. Very poor prognosis for surviving this hospitalization given her multiple chronic comorbidities, recent prolonged acute hospitalizations, acute events, profound physical deconditioning and advanced age. . Code Status: Full Code Plan * CODE STATUS: Daughter electing for patient to remain FULL code. Risks and limitations of CPR were discussed in great detail with daughter given patient's worsening clinical condition. * HEALTHCARE DECISION-MAKING: Patient unable to participate in medical decision- making secondary to clinical condition, intubated on mechanical ventilation. Daughter Cata Yin presents herself as pt's designated healthcare surrogate , pending copy of designation/living will. In the absence of designation of healthcare surrogate, proxy decision-making falls to the majority of patient's children for which she has 2 daughters. [employer] report secured, will follow- up re proxy decision maker if no advance directives are presented. * GOALS OF CARE: Daughter Cata electing to continue aggressive medical management to include FULL code, with the understanding that patient's clinical condition is critical secondary to MSOF, cardiogenic shock. Daughter in agreement to meet with palliative care on 03/18/17 at 11 AM for continuation of goals of care conversation. * SYMPTOMS: = Shortness of breath, remains orally intubated on mechanical ventilation. Patient currently on Versed for sedation. = Debility, progressive and worsened since December 2016. * Case discussed with bedside JUWAN Ray. * Palliative care contact information has been provided to patient's daughter Cata. * Palliative care will continue to follow-up for further clarifications of goals of care as patient's clinical course continue to evolve. . Time Spent Total Floor Time (mins): 28 (Total time to include review medical records, physical exam, telephone conversation with patient's daughter, and case discussion with bedside JUWAN Ray.) >50% Counseling/Coord of Care: Yes Attestation To help prompt me to consider important information that might be impacting today's encounter and assessment, information from prior notes written by myself or my colleagues may have been "brought forward" into today's note. My signature on this note, however, is an attestation that I personally performed the exam, history, and/or decision-making noted today, and, unless otherwise indicated, the interactions with patient, family, and staff as well as the review of records all occurred today. I also attest that the listed assessment and stated plan reflect my best clinical judgment today based on the combination of historical information, prior notes, and today's exam/ interactions. When time spent is documented, it refers only to time spent today by the signer, or if indicated, combined time spent today by collaborating physician/nurse practitioner. Amy Turk Mar 17, 2017 16:49
[2017-03-17] MEDS: MIDAZOLAM 100 MG/100 ML INJ 100 ML IV SCH (18:19)
--- NOTE | 2017-03-17 21:02 | HHI.IDPN ---
Subjective Subjective Remarks delayed entry pt was seen earlier today around 1 pm She is on low dose of pressors No fever + liquid diarrhea Antibiotics zosyn zyvox fluconazol Allergies: Coded Allergies: Aspirin (Verified Allergy, Unknown, 03/11/17) pt sts ulcer *MDRO Multi-Drug Resistant Organism (Verified Adverse Reaction, Unknown, ) VRE (urine) 03/11/17 Uncoded Allergies: antipsycotics (Allergy, Intermediate, Confusion, 03/01/17) Objective . Vital Signs Date Time Temp Pulse Resp B/P Pulse Ox O2 Delivery O2 Flow Rate FiO2 03/17/17 17:00 71 14 96/54 100 113/49 03/17/17 16:22 100 35 03/17/17 16:00 97.5 72 14 95/52 100 110/47 03/17/17 16:00 35 03/17/17 15:00 73 14 99/56 100 106/46 03/17/17 14:00 74 14 99/57 100 107/47 03/17/17 13:00 80 15 102/74 100 109/50 03/17/17 12:04 100 35 03/17/17 12:00 97.7 75 14 99/55 100 118/52 03/17/17 12:00 35 03/17/17 11:00 74 14 98/54 100 115/50 03/17/17 10:00 72 14 108/55 100 111/46 03/17/17 09:06 100 35 03/17/17 09:00 83 14 124/65 100 125/54 03/17/17 08:30 79 14 125/68 100 134/59 03/17/17 08:15 98.8 81 14 128/73 100 134/57 03/17/17 08:00 35 03/17/17 08:00 79 14 128/70 100 130/54 03/17/17 06:00 79 03/17/17 04:00 97.8 85 14 116/66 100 135/61 03/17/17 04:00 85 03/17/17 04:00 35 03/17/17 03:05 100 35 03/17/17 02:00 86 03/17/17 01:29 100 35 03/17/17 00:00 35 03/17/17 00:00 83 03/17/17 00:00 98.3 83 14 109/59 100 129/57 03/16/17 22:44 100 35 03/16/17 22:00 84 03/16/17 20:59 100 35 03/16/17 03/16/17 03/17/17 14:59 22:59 06:59 Intake Total 545 ml 668 ml Output Total 500 ml 275 ml Balance 45 ml 393 ml IV Total 529 ml 580 ml Tube Feeding 16 ml 88 ml Output Urine Total 500 ml 275 ml # Bowel Movements 0 0 . Laboratory Tests Test 03/16/17 03/17/17 05:40 05:45 White Blood Count 12.0 TH/MM3 10.8 TH/MM3 Red Blood Count 3.10 MIL/MM3 3.32 MIL/MM3 Hemoglobin 9.9 GM/DL 10.6 GM/DL Hematocrit 28.8 % 31.4 % Mean Corpuscular Volume 92.8 FL 94.6 FL Mean Corpuscular Hemoglobin 32.0 PG 31.9 PG Mean Corpuscular Hemoglobin 34.4 % 33.7 % Concent Red Cell Distribution Width 15.9 % 15.9 % Platelet Count 349 TH/MM3 410 TH/MM3 Mean Platelet Volume 9.2 FL 8.7 FL Neutrophils (%) (Auto) 90.0 % 89.6 % Lymphocytes (%) (Auto) 4.0 % 5.1 % Monocytes (%) (Auto) 5.9 % 5.3 % Eosinophils (%) (Auto) 0.0 % 0.0 % Basophils (%) (Auto) 0.1 % 0.0 % Neutrophils # (Auto) 10.8 TH/MM3 9.7 TH/MM3 Lymphocytes # (Auto) 0.5 TH/MM3 0.6 TH/MM3 Monocytes # (Auto) 0.7 TH/MM3 0.6 TH/MM3 Eosinophils # (Auto) 0.0 TH/MM3 0.0 TH/MM3 Basophils # (Auto) 0.0 TH/MM3 0.0 TH/MM3 CBC Comment DIFF FINAL DIFF FINAL Differential Comment Laboratory Tests Test 03/16/17 03/16/17 03/17/17 03:15 13:22 05:45 Sodium Level 136 MEQ/L 133 MEQ/L Potassium Level 2.9 MEQ/L 3.8 MEQ/L 4.1 MEQ/L Chloride Level 104 MEQ/L 103 MEQ/L Carbon Dioxide Level 18.7 MEQ/L 18.0 MEQ/L Anion Gap 13 MEQ/L 12 MEQ/L Blood Urea Nitrogen 33 MG/DL 36 MG/DL Creatinine 1.28 MG/DL 1.47 MG/DL Estimat Glomerular Filtration 40 ML/MIN 34 ML/MIN Rate Random Glucose 119 MG/DL 130 MG/DL Calcium Level 8.8 MG/DL 8.4 MG/DL Phosphorus Level 6.2 MG/DL 4.7 MG/DL 4.5 MG/DL Magnesium Level 3.5 MG/DL 3.1 MG/DL Total Bilirubin 0.7 MG/DL Aspartate Amino Transf 18 U/L (AST/SGOT) Alanine Aminotransferase 39 U/L (ALT/SGPT) Alkaline Phosphatase 58 U/L Total Protein 5.2 GM/DL Albumin 2.0 GM/DL Imaging Last Impressions Chest X-Ray 03/17/17 0000 Signed Impressions: Service Date/Time: Friday, March 17, 2017 09:37 - CONCLUSION: 1. Persistent parenchymal changes left base 2. Support apparatus in good position without pneumothorax. Jj Gee MD FACR Abdomen Ultrasound 03/16/17 0000 Signed Impressions: Service Date/Time: Thursday, March 16, 2017 20:35 - CONCLUSION: 1. Right renal cyst and multiple hepatic cysts. 2. Echogenic lesion in liver measures 1.8 cm likely hemangioma. Contrasted MRI may be warranted for confirmation. 3. Cholelithiasis. Evans Augustin MD Head CT 03/12/17 0000 Signed Impressions: Service Date/Time: Sunday, March 12, 2017 13:00 - CONCLUSION: 1. Cerebral atrophy and chronic ischemic small vessel vasculopathy. Evans Augustin MD Physical Exam CONSTITUTIONAL/GENERAL: This is an adequately nourished patient, in no apparent distress. TUBES/LINES/DRAINS: SKIN: No jaundice, rashes, or lesions. Not diaphoretic. HEAD: Atraumatic. Normocephalic. EYES: No scleral icterus. ENT: Hearing not tested. Nose without bleeding or purulent drainage. orally intubated without visible erythema, exudates, masses, or lesions. CARDIOVASCULAR: Regular rate and rhythm without murmurs, gallops, or rubs. No JVD + delayed refill, especially on R foot RESPIRATORY/CHEST: Symmetric, unlabored respirations. Clear to auscultation. Breath sounds equal bilaterally. No wheezes, rales, or rhonchi. GASTROINTESTINAL: Abdomen soft, no reaction to palpation, mildly distended. No hepato-splenomegaly, or palpable masses. No guarding. Bowel sounds diminished GENITOURINARY: Without palpable bladder distension. Abrams catheter in place with clear yellow urine MUSCULOSKELETAL: Extremities without clubbing, no edema. No cyanosis, perfused extremeties NEUROLOGICAL: Sedated intubated, unresponsive PSYCHIATRIC: unable to assess Assessment & Plan Remarks NSTEMI Heart hfailure with cardiogenic shock VRE UTI Candiduria Acute VDRF Bilateral lower lobe atelectasis versus early pneumonia - clx P Critically ill and unstable Abx associated diarrhea, C.diff negative REC's: cont fluconazole dc zosyn start CFTX cont zyvox po dw Tracie Abreu RN, MD Mar 17, 2017 21:02
[2017-03-17] MEDS: DIGOXIN 0.25 MG TAB PO SCH (21:47)
[2017-03-17] MEDS: DONEPEZIL HCL 5 MG TAB PO SCH (21:47)
[2017-03-17] MEDS: cefTRIAXone INJ 2,000 MG in SODIUM CHLORIDE 0.9% INJ 100 ML IV SCH (21:48)
[2017-03-18] VITALS (27 sets, daily range): BP systolic 80–133; BP diastolic 41–81; PULSE 63–77; RESP 14–37; TEMP 97.7–99; O2SAT 89–100
[2017-03-18] MEDS: MILRINONE INJ 20 MG in SODIUM CHLORIDE 0.9% INJ 80 ML IV SCH ×2 (01:51→16:51)
[2017-03-18] MEDS: INSULIN NovoLIN REGULAR SUPPLEMENTAL SCALE SQ SCH ×4 (03:00→21:00)
[2017-03-18] MEDS: CHLORHEXIDINE GLUCONATE 2 % 1 PACK (2 CLOTHS) TOP SCH (03:08)
[2017-03-18 04:05] LABS: BASOPHIL % 0.1 % (0.0-2.0); HEMATOCRIT 28.1 % (35.0-46.0); HEMO FLAGS DIFF FINAL; LYMPHOCYTE # 0.5 TH/MM3 (1.0-4.8); MEAN CELL VOLUME 94.2 FL (80.0-100.0); MEAN CORPUSCULAR HEMOGLOBIN 31.7 PG (27.0-34.0); MEAN CORPUSCULAR HGB CONC 33.7 % (32.0-36.0); MONO % 4.8 % (0.0-8.0); NEUT % 86.1 % (16.0-70.0); PLATELET COUNT 297 TH/MM3 (150-450); RED BLOOD COUNT 2.99 MIL/MM3 (4.00-5.30); RED CELL DISTRIBUTION WIDTH 15.5 % (11.6-17.2); WHITE BLOOD COUNT 5.9 TH/MM3 (4.0-11.0)
[2017-03-18 04:15] LABS: BICARBONATE 20.5 MEQ/L (21.0-32.0); POTASSIUM 3.5 MEQ/L (3.5-5.1)
[2017-03-18] MEDS: METOCLOPRAMIDE HCL 10 MG/2 ML VIAL IV PUSH SCH ×3 (05:14→21:33)
[2017-03-18] MEDS: HYDROCORTISONE SOD SUCCINATE 100 MG VIAL IV PUSH SCH ×3 (05:14→21:32)
[2017-03-18] MEDS: LINEZOLID 600 MG TAB PO SCH ×2 (05:14→18:00)
--- NOTE | 2017-03-18 06:58 | HHI.CCPN ---
Subjective Remarks/Hospital Course Patient is an 82-year-old female with past medical history significant for recurrent UTIs, atrial fibrillation, hypertension, dyslipidemia, dementia who was transferred from [facility] emergency department after being diagnosed for NSTEMI. She presented with chest pain and EKG showed sinus tachycardia, and troponin was elevated at 4.43. Patient was given aspirin (by EMS) and started on IV heparin infusion. Patient was transferred to [facility] ICU per Dr. Keys's request. Other abnormal labs include BNP of 1330 and potassium of 3. Previous echo showed an ejection fraction of 45%. I evaluated the patient in the ICU. Appears in moderate distress, tachypneic, tachycardic, but denies chest pain (when asked in Trin[place] by RN). Patient was seen by Dr. Keys in the ICU, not a candidate for cardiac catheterization on interventions at this time. 2-D echo is pending. UA shows evidence of UTI. Started on cefepime and Diflucan (yeast present in UA). Repeat troponin and lactic acid pending at this time. SUBJ 03/12: I rounded on patient at about 0830 AM, patient was communicative tachypneic but not in severe distress. I was emergently called to the bedside at 10:30 AM patient was unresponsive agonal breathing with blood pressure 60/29 , bradycardic. Emergently started on dopamine. Patient was not protecting airway and I emergently intubated and placed on mechanical ventilation. An emergency left subclavian central line also placed. Levophed was added due to persistent hypotension. Patient appears to be in severe cardiogenic shock. EF 15 -20% down from 40% on 03/04/17. Patient also has moderate to severe MR, moderate to severe TR with moderate to severe pulmonary hypertension. I have discussed with Dr. Keys, she does not think patient is a candidate for any invasive therapy due to advanced age and comorbidities including dementia. I have updated daughter Cata 03/13: Remains intubated sedated critically ill. Remains on 3 pressors (dopamine , Neftali-Synephrine, milrinone). Urine output diminishing. Patient is in multiorgan failure prognosis poor. Family wants to continue full aggressive care palliative care is following. Urine culture showing group D enterococcus and Soledad. Cefepime discontinued Zosyn started along with vancomycin and continue Diflucan 03/14 Patient is sedated with versed and intubated. On Neosyn 200 mics and Milrinone. T: 100.0 last night. Off Dopamine 03/15 Patient remains intubated and sedated with Versed 5mg/hr, Nesoyn down 112 mics and on Milrinone. Afebrile. s/p transfusion 1unit PRBC yesterday. 03/16 No events overnight. Remains sedated with versed and intubated. On Neosyn and Milrinone. 03/17 Patient is intubated and sedated, Neosyn 100mics and Milrinone. Afebrile. 03/18 No events overnight. On Neosyn is down to 37 mics, Milrinone and sedated with Versed. Afebrile. Objective Vital Signs Date Time Temp Pulse Resp B/P Pulse Ox O2 Delivery O2 Flow Rate FiO2 03/18/17 05:24 100 35 03/17/17 17:00 71 14 96/54 113/49 03/17/17 16:00 97.5 Intake and Output 03/17/17 03/17/17 03/18/17 08:00 16:00 00:00 Intake Total 668 ml 345 ml Output Total 775.0 ml 950 ml Balance -107.0 ml -605 ml Result Diagram: 03/18/17 0250 03/18/17 0250 Other Results Laboratory Tests Test 03/17/17 03/18/17 03/18/17 09:38 00:30 02:50 Blood Gas Puncture Site ART LINE Blood Gas Patient Temperature 98.6 Blood Gas HCO3 15 mmol/L Blood Gas Base Excess -8.8 mmol/L Blood Gas Oxygen Saturation 97 % Arterial Blood pH 7.37 Arterial Blood Partial 27 mmHg Pressure CO2 Arterial Blood Partial 134 mmHg Pressure O2 Arterial Blood Oxygen Content 13.4 Vol % Arterial Blood 1.4 % Carboxyhemoglobin Arterial Blood Methemoglobin 1.0 % Blood Gas Hemoglobin 9.7 G/DL Oxygen Delivery Device VENTILATOR Blood Gas Ventilator Setting [id number]/500/[id number] Blood Gas Inspired Oxygen 35 % Potassium Level 3.5 MEQ/L 3.5 MEQ/L White Blood Count 5.9 TH/MM3 Red Blood Count 2.99 MIL/MM3 Hemoglobin 9.5 GM/DL Hematocrit 28.1 % Mean Corpuscular Volume 94.2 FL Mean Corpuscular Hemoglobin 31.7 PG Mean Corpuscular Hemoglobin 33.7 % Concent Red Cell Distribution Width 15.5 % Platelet Count 297 TH/MM3 Mean Platelet Volume 8.6 FL Neutrophils (%) (Auto) 86.1 % Lymphocytes (%) (Auto) 9.0 % Monocytes (%) (Auto) 4.8 % Eosinophils (%) (Auto) 0.0 % Basophils (%) (Auto) 0.1 % Neutrophils # (Auto) 5.0 TH/MM3 Lymphocytes # (Auto) 0.5 TH/MM3 Monocytes # (Auto) 0.3 TH/MM3 Eosinophils # (Auto) 0.0 TH/MM3 Basophils # (Auto) 0.0 TH/MM3 CBC Comment DIFF FINAL Differential Comment Sodium Level 140 MEQ/L Chloride Level 107 MEQ/L Carbon Dioxide Level 20.5 MEQ/L Anion Gap 13 MEQ/L Blood Urea Nitrogen 34 MG/DL Creatinine 1.35 MG/DL Estimat Glomerular Filtration 37 ML/MIN Rate Random Glucose 104 MG/DL Calcium Level 8.3 MG/DL Imaging Last Impressions Abdomen Ultrasound 03/16/17 0000 Signed Impressions: Service Date/Time: Thursday, March 16, 2017 20:35 - CONCLUSION: 1. Right renal cyst and multiple hepatic cysts. 2. Echogenic lesion in liver measures 1.8 cm likely hemangioma. Contrasted MRI may be warranted for confirmation. 3. Cholelithiasis. Evans Augustin MD Chest X-Ray 03/14/17 0600 Signed Impressions: Service Date/Time: Tuesday, March 14, 2017 03:48 - CONCLUSION: 1. Cardiomegaly and findings of vascular congestion without overt failure. Bilateral lower lobe atelectasis versus pneumonia. This is new when compared with the prior exam. Harvey Cheng MD Head CT 03/12/17 0000 Signed Impressions: Service Date/Time: Sunday, March 12, 2017 13:00 - CONCLUSION: 1. Cerebral atrophy and chronic ischemic small vessel vasculopathy. Evans Augustin MD Objective Remarks GENERAL: 82-year-old female acutely and chronically critically ill, on vent SKIN: Warm and dry. HEAD: Atraumatic. EYES: Pupils equal and round. No scleral icterus. ENT: No nasal bleeding or discharge. Orotracheally intubated NECK: Positive JVD CARDIOVASCULAR: Tachycardic, hypotensive. Systolic murmur at the apex. Remains on milrinone, dopamine and Neftali-Synephrine RESPIRATORY: Air entry equal bilaterally. Few basilar crackles GASTROINTESTINAL: Abdomen soft, non-tender, nondistended. NEUROLOGICAL: Intubated sedated. Occasionally opens eyes. Moving all extremities not following commands on sedation A/P Assessment and Plan NEURO: Acute encephalopathy Dementia Versed infusion for sedation, maintain ventilator synchrony. Daily sedation vacation. Monitor neuro status. Continue home Aricept Encephalopathy most likely secondary to metabolic causes RESP: Acute respiratory failure History of COPD Pulmonary artery hypertension Continue with vent support and keep sat >92% Ventilator bundle. DuoNeb scheduled and when necessary SBT daily as carley, Check ABG CV: NSTEMI Cardiogenic shock Acute systolic heart failure Lactic acidosis Ischemic cardiomyopathy with ejection fraction 15-20% Moderate to severe mitral and tricuspid regurgitation History of A. fib s/p 2.5L bolus 03/11. All IV fluids discontinued due to pulmonary edema Ejection fraction 15-20% , in comparison to echocardiogram on 03/04/17 EF 40% Wean down pressors ( On Neosyn 37 mics, Milrinone) keep MAP>65mmHg On stress dose steroids- HC 100 mg IV Q8 Arterial line And flow track monitoring Amiodarone 400mg Q12 started by Dr. Keys, On Digoxin 0.25mg daily, Dig level: 1.4 on 03/14 Lactic acid trending down 1.9 03/14 GI: IV Protonix 40mg BID s/p transfusion 1unit PRBC, GI is following. On Glucenra 1.5 currently @10ml/hr, advance as carley On Reglan 5mg IV Q8 : Monitor renal function , I/O's, electrolytes replacement per protocol. Renal function is improving- Cr: 1.35 today from 1.47 , ID: Severe sepsis UTI 03/11 Urine culture growing Soledad and group D enterococcus(VRE) 03/14 Urine cx: C. Albicans Continue abx( Rocephin, Diflucan, Zyvox) monitor for signs of infections ( Fever , WBC) ID is following- Dr. Domínguez HEME: Monitor CBC, CMP, coags s/p [id number] PRBC 03/14 ENDO: SSI for glycemic control Electrolyte replacement protocol PROPH: Bilateral lower extremity SCDs. SQ Heparin on hold for anemia requiring blood transfusion, Protonix LINES: Left subclavian central line, Right Femoral Art line- placed 7/19 CC time 30 min excluding procedures Palliative care following Deepthi Griffiths MD Mar 18, 2017 06:58
[2017-03-18 07:27] LABS: BLOOD GAS BASE EXCESS -5.7 mmol/L (-2-2); BLOOD GAS CARBOXYHEMOGLOBIN 1.5 % (0-4); BLOOD GAS HCO3 18 mmol/L (22-26); BLOOD GAS METHEMOGLOBIN 1.2 % (0-2); BLOOD GAS O2 HGB SATURATION 97 % (90-100); BLOOD GAS OXYGEN CONTENT 13.4 Vol % (12.0-20.0); BLOOD GAS PCO2 28 mmHg (38-42); BLOOD GAS PO2 155 mmHg (61-120); BLOOD GAS TOTAL HGB 9.6 G/DL (12.0-16.0); CRITICAL VALUE NO; FIO2 35 %; OXYGEN DEVICE VENTILATOR; TEMP CORR TO 98.6; VENT SETTINGS A/C14/500/PEEP5
[2017-03-18 07:28] LABS: DRAW SITE ALINE; STAT NO
[2017-03-18] MEDS: FLUCONAZOLE 100 MG TAB PO SCH (07:55)
[2017-03-18] MEDS: POTASSIUM CHLORIDE 10 MEQ CAP PO SCH (07:55)
[2017-03-18] MEDS: DOCUSATE SODIUM 50 MG/SENNA 8.6 MG TAB PO SCH ×2 (07:55→21:32)
[2017-03-18] MEDS: AMIODARONE 200 MG TAB OG-TUBE SCH ×2 (07:55→21:32)
[2017-03-18] MEDS: CHLORHEXIDINE 0.12% (ORAL KIT) 15 ML CUP MT SCH ×2 (07:55→21:34)
[2017-03-18] MEDS: ASPIRIN 81 MG CHEW TAB CHEW SCH (07:55)
[2017-03-18] MEDS: PANTOPRAZOLE SODIUM 40 MG VIAL IV PUSH SCH ×2 (07:56→21:32)
--- NOTE | 2017-03-18 11:55 | HHI.HCPN ---
Reason for visit a. To assist with evaluation and management of symptoms including: Shortness of breath and debility. b. To assist medical decision maker(s) with: better understanding of current medical conditions; weighing benefits/burdens of medical treatment options; making medical treatment decisions. . (Amy Turk) Subjective/Interval History Mrs. Franco is a 82-year-old female with a past medical history of dementia originally diagnosed in 2013, recurrent UTIs, urinary retention, hypertension and atrial fibrillation. Patient presented to ED on 03/11/17 via EMS for evaluation of chest pain. Laboratory workup indicating troponin 4.43 and BNP 1330. EKG revealing sinus tachycardia. Patient was transfer to [facility] for further management of non-STEMI. She was seen by Dr. Keys in the ICU, not a candidate for any invasive procedures. Medical management recommended. Echocardiogram showing EF of 20% from the echo on 03/04/17 showing EF of 45%. In addition, moderate to severe mitral valve regurgitation. Clinical course complicated by severe cardiac shock, intubation and mechanical ventilation in addition to vasopressors. Palliative care has been consulted for further clarifications of goals of care given patient's worsening clinical condition and poor prognosis. Patient seen in ICU. She remained orally intubated on mechanical ventilation. Unresponsive to verbal or tactile stimuli, sedated with Versed. Remains on Neftali- Synephrine and Milrinone drip. Hemoglobin dropped to 9.5 from 10.6 yesterday. GI following. Urine culture positive for Soledad and VRE. Infectious disease following. No new imaging for review today. Patient afebrile, 35% FiO2, oxygen saturation at 100%. Family meeting. Met with daughter Cata Yin. Medical update provided. Discussed and patient remains critically ill and unstable requiring mechanical ventilation and 2 vasopressors at this time. Reviewed poor prognosis secondary to MSOF, sepsis, cardiogenic shock, multiple chronic comorbidities, multiple recent acute hospitalizations, profound physical deconditioning and advanced age. Introduced trach and PEG discussion if patient unable to liberate from ventilator support. Discussed that unable to proceed with SBTs at this time as patient remains on continue vasopressors drip, unstable. Discussed risks, benefits and limitations of trach and peg given patient's poor prognosis. Discussed continuation of aggressive care vs comfort-directed care. Daughter electing to continue with aggressive care including full code at this time. Daughter asking questions regarding home information and [facility] with cremation. Information provided. Spiritual services offered and accepted. Ongoing emotional support and active listening provided. Daughter appreciative of my visit today. Daughter reports that she will fax copy of advance directives to palliative care this afternoon. Obtain sisters information, Debo Dolan, no contact telephone number provided. Cata reports that they haven't talk to each other in years. She will attempt to get sister's contact information from additional family members. . Family/friend interactions See interval note. . (Amy Turk) Advance Directives Living Will: Never completed Health Care Surrogate: Completed, but not made available Durable Power of Thread Cutter: Completed, but not made available (Amy Turk) Advance Directive Specifics Health Care Surrogate(s): As per daughter Cata Yin, she is the designated healthcare surrogate. Pending designation of healthcare surrogate/living will. . Documented care wishes: Pending copy of living will. . Significant change in goals: Goals of care remain unchanged. . (Amy Turk) Objective Vital Signs Date Time Temp Pulse Resp B/P Pulse Ox O2 Delivery O2 Flow Rate FiO2 03/18/17 11:09 100 35 03/18/17 07:33 100 35 03/18/17 06:00 70 03/18/17 05:24 100 35 03/18/17 04:00 97.7 72 14 113/59 100 133/58 03/18/17 04:00 72 03/18/17 04:00 35 03/18/17 02:48 100 35 03/18/17 02:00 70 03/18/17 00:11 100 35 03/18/17 00:00 71 03/18/17 00:00 97.9 71 14 114/60 100 122/53 03/18/17 00:00 35 03/17/17 22:00 70 03/17/17 20:00 35 03/17/17 20:00 71 03/17/17 20:00 97.5 72 14 95/52 100 110/47 03/17/17 17:00 71 14 96/54 100 113/49 03/17/17 16:22 100 35 03/17/17 16:00 97.5 72 14 95/52 100 110/47 03/17/17 16:00 35 03/17/17 15:00 73 14 99/56 100 106/46 03/17/17 14:00 74 14 99/57 100 107/47 03/17/17 13:00 80 15 102/74 100 109/50 03/17/17 12:04 100 35 03/17/17 12:00 97.7 75 14 99/55 100 118/52 03/17/17 12:00 35 Intake & Output 03/18/17 03/18/17 07:00 19:00 Intake Total 1117 ml Output Total 625 ml Balance 492 ml IV Total 941 ml Tube Feeding 176 ml Output Urine Total 575 ml Stool Total 50 ml # Bowel Movements 0 Physical Exam CONSTITUTIONAL/GENERAL: This is an elderly, frail female who is orally intubated on mechanical ventilation. TUBES/LINES/DRAINS: PIV's, ETT, central line to left upper chest, SCDs, Abrams catheter, bilateral soft wrist restraints. SKIN: No jaundice, rashes, or lesions. Ecchymoses on upper extremities. No wounds seen anteriorly. Not diaphoretic. HEAD: Atraumatic. Normocephalic. EYES: Pupils equal and round and reactive, sluggish. No scleral icterus. No injection or drainage. ENT: Unable to assess hearing secondary to clinical condition. Nose without bleeding or purulent drainage. Moist oral mucosa. NECK: Trachea midline. Supple. CARDIOVASCULAR: regular rate and rhythm, systolic murmur. Faint peripheral pulses. Mild mottling of the toes and fingers. RESPIRATORY/CHEST: intubated on mechanical ventilation. Breath sounds diminished bilaterally. GASTROINTESTINAL: Abdomen soft, nondistended. Bowel sounds present. GENITOURINARY: Without palpable bladder distension. Abrams catheter in place. MUSCULOSKELETAL: Mild mottling of the toes and fingers noted. NEUROLOGICAL: Unresponsive to verbal or tactile stimuli. No purposeful movement noted. PSYCHIATRIC: Unable to evaluate secondary to clinical condition. . (Amy Turk) Diagnostic Tests Laboratory Laboratory Tests Test 03/16/17 03/16/17 03/16/17 03/17/17 03:15 05:40 13:22 05:45 Sodium Level 136 MEQ/L 133 MEQ/L (136-145) (136-145) Potassium Level 2.9 MEQ/L 3.8 MEQ/L 4.1 MEQ/L (3.5-5.1) (3.5-5.1) (3.5-5.1) Chloride Level 104 MEQ/L 103 MEQ/L (98-107) (98-107) Carbon Dioxide Level 18.7 MEQ/L 18.0 MEQ/L (21.0-32.0) (21.0-32.0) Anion Gap 13 MEQ/L (5-15) 12 MEQ/L (5-15) Blood Urea Nitrogen 33 MG/DL (7-18) 36 MG/DL (7-18) Creatinine 1.28 MG/DL 1.47 MG/DL (0.50-1.00) (0.50-1.00) Estimat Glomerular Filtration 40 ML/MIN (>89) 34 ML/MIN (>89) Rate Random Glucose 119 MG/DL 130 MG/DL (74-106) (74-106) Calcium Level 8.8 MG/DL 8.4 MG/DL (8.5-10.1) (8.5-10.1) Phosphorus Level 6.2 MG/DL 4.7 MG/DL 4.5 MG/DL (2.5-4.9) (2.5-4.9) (2.5-4.9) Magnesium Level 3.5 MG/DL 3.1 MG/DL (1.5-2.5) (1.5-2.5) Total Bilirubin 0.7 MG/DL (0.2-1.0) Aspartate Amino Transf 18 U/L (15-37) (AST/SGOT) Alanine Aminotransferase 39 U/L (10-53) (ALT/SGPT) Alkaline Phosphatase 58 U/L (45-117) Total Protein 5.2 GM/DL (6.4-8.2) Albumin 2.0 GM/DL (3.4-5.0) White Blood Count 12.0 TH/MM3 10.8 TH/MM3 (4.0-11.0) (4.0-11.0) Red Blood Count 3.10 MIL/MM3 3.32 MIL/MM3 (4.00-5.30) (4.00-5.30) Hemoglobin 9.9 GM/DL 10.6 GM/DL (11.6-15.3) (11.6-15.3) Hematocrit 28.8 % 31.4 % (35.0-46.0) (35.0-46.0) Mean Corpuscular Volume 92.8 FL 94.6 FL (80.0-100.0) (80.0-100.0) Mean Corpuscular Hemoglobin 32.0 PG 31.9 PG (27.0-34.0) (27.0-34.0) Mean Corpuscular Hemoglobin 34.4 % 33.7 % Concent (32.0-36.0) (32.0-36.0) Red Cell Distribution Width 15.9 % 15.9 % (11.6-17.2) (11.6-17.2) Platelet Count 349 TH/MM3 410 TH/MM3 (150-450) (150-450) Mean Platelet Volume 9.2 FL 8.7 FL (7.0-11.0) (7.0-11.0) Neutrophils (%) (Auto) 90.0 % 89.6 % (16.0-70.0) (16.0-70.0) Lymphocytes (%) (Auto) 4.0 % 5.1 % (9.0-44.0) (9.0-44.0) Monocytes (%) (Auto) 5.9 % (0.0-8.0) 5.3 % (0.0-8.0) Eosinophils (%) (Auto) 0.0 % (0.0-4.0) 0.0 % (0.0-4.0) Basophils (%) (Auto) 0.1 % (0.0-2.0) 0.0 % (0.0-2.0) Neutrophils # (Auto) 10.8 TH/MM3 9.7 TH/MM3 (1.8-7.7) (1.8-7.7) Lymphocytes # (Auto) 0.5 TH/MM3 0.6 TH/MM3 (1.0-4.8) (1.0-4.8) Monocytes # (Auto) 0.7 TH/MM3 0.6 TH/MM3 (0-0.9) (0-0.9) Eosinophils # (Auto) 0.0 TH/MM3 0.0 TH/MM3 (0-0.4) (0-0.4) Basophils # (Auto) 0.0 TH/MM3 0.0 TH/MM3 (0-0.2) (0-0.2) CBC Comment DIFF FINAL DIFF FINAL Differential Comment Test 03/17/17 03/18/17 03/18/17 03/18/17 09:38 00:30 02:50 07:17 Blood Gas Puncture Site ART LINE SARA Blood Gas Patient Temperature 98.6 98.6 Blood Gas HCO3 15 mmol/L 18 mmol/L (22-26) (22-26) Blood Gas Base Excess -8.8 mmol/L -5.7 mmol/L (-2-2) (-2-2) Blood Gas Oxygen Saturation 97 % (90-100) 97 % (90-100) Arterial Blood pH 7.37 7.42 (7.380-7.420) (7.380-7.420) Arterial Blood Partial 27 mmHg (38-42) 28 mmHg (38-42) Pressure CO2 Arterial Blood Partial 134 mmHg 155 mmHg Pressure O2 (61-120) (61-120) Arterial Blood Oxygen Content 13.4 Vol % 13.4 Vol % (12.0-20.0) (12.0-20.0) Arterial Blood 1.4 % (0-4) 1.5 % (0-4) Carboxyhemoglobin Arterial Blood Methemoglobin 1.0 % (0-2) 1.2 % (0-2) Blood Gas Hemoglobin 9.7 G/DL 9.6 G/DL (12.0-16.0) (12.0-16.0) Oxygen Delivery Device VENTILATOR VENTILATOR Blood Gas Ventilator Setting AC14/500/PEEP5 A/C14/500/PEEP5 Blood Gas Inspired Oxygen 35 % 35 % Potassium Level 3.5 MEQ/L 3.5 MEQ/L (3.5-5.1) (3.5-5.1) White Blood Count 5.9 TH/MM3 (4.0-11.0) Red Blood Count 2.99 MIL/MM3 (4.00-5.30) Hemoglobin 9.5 GM/DL (11.6-15.3) Hematocrit 28.1 % (35.0-46.0) Mean Corpuscular Volume 94.2 FL (80.0-100.0) Mean Corpuscular Hemoglobin 31.7 PG (27.0-34.0) Mean Corpuscular Hemoglobin 33.7 % Concent (32.0-36.0) Red Cell Distribution Width 15.5 % (11.6-17.2) Platelet Count 297 TH/MM3 (150-450) Mean Platelet Volume 8.6 FL (7.0-11.0) Neutrophils (%) (Auto) 86.1 % (16.0-70.0) Lymphocytes (%) (Auto) 9.0 % (9.0-44.0) Monocytes (%) (Auto) 4.8 % (0.0-8.0) Eosinophils (%) (Auto) 0.0 % (0.0-4.0) Basophils (%) (Auto) 0.1 % (0.0-2.0) Neutrophils # (Auto) 5.0 TH/MM3 (1.8-7.7) Lymphocytes # (Auto) 0.5 TH/MM3 (1.0-4.8) Monocytes # (Auto) 0.3 TH/MM3 (0-0.9) Eosinophils # (Auto) 0.0 TH/MM3 (0-0.4) Basophils # (Auto) 0.0 TH/MM3 (0-0.2) CBC Comment DIFF FINAL Differential Comment Sodium Level 140 MEQ/L (136-145) Chloride Level 107 MEQ/L (98-107) Carbon Dioxide Level 20.5 MEQ/L (21.0-32.0) Anion Gap 13 MEQ/L (5-15) Blood Urea Nitrogen 34 MG/DL (7-18) Creatinine 1.35 MG/DL (0.50-1.00) Estimat Glomerular Filtration 37 ML/MIN (>89) Rate Random Glucose 104 MG/DL (74-106) Calcium Level 8.3 MG/DL (8.5-10.1) (Amy Turk) Result Diagram: 03/18/1724903/18/17 025 Procedures * 03/12/17 -intubation * 03/12/17 -central line placement . (Amy Turk) Assessment and Plan Disease Oriented Problem List: (1) Severe sepsis (2) Lactic acidosis (3) Encephalopathy acute (4) Urinary tract infection (5) NSTEMI (non-ST elevation myocardial infarction) (6) CHF (congestive heart failure) (7) Dementia (8) Atrial fibrillation Symptom Scale: (1) Shortness of breath 0-10 Scale: Unable to quantify Comment: Remains orally intubated on mechanical ventilation. (2) Debility 0-10 Scale: Unable to quantify Comment: Progressive, worsening since December. Pertinent Non-Medical Issues Psychosocial: . Originally from [place]. has 2 daughters. Spiritual: Buddhist oliva. Legal: Daughter reports that advance directives have been completed. Pending copy. Ethical issues impacting care: Patient unable to participate in medical decision -making. Pending copy of living will and designation of healthcare surrogate. Patient has 2 daughters, daughter Cata claims that she is the designated healthcare surrogate. Pending copy of documents. . Important Contacts Daughter Cata Yin & Family friend Kristen Jolly [phone]. . Prognosis Mrs. Franco is a 82-year-old female with a past medical history of dementia originally diagnosed in 2013, recurrent UTIs, urinary retention, hypertension and atrial fibrillation. Patient with recent prolonged hospitalizations since December 2016. Admitted secondary to non-STEMI. Clinical course complicated by septic/cardiogenic shock, acute respiratory failure, lactic acidosis, congestive heart failure. Very poor prognosis for surviving this hospitalization given her multiple chronic comorbidities, recent prolonged acute hospitalizations, acute events, profound physical deconditioning and advanced age. . Code Status: Full Code Plan * CODE STATUS: Daughter electing for patient to remain FULL code. Risks and limitations of CPR were discussed in great detail with daughter given patient's worsening clinical condition. * HEALTHCARE DECISION-MAKING: Patient unable to participate in medical decision- making secondary to clinical condition, intubated on mechanical ventilation. Daughter Cata Yin presents herself as pt's designated healthcare surrogate , pending copy of designation/living will -daughter to fax documents to palliative care this afternoon. In the absence of designation of healthcare surrogate, proxy decision-making falls to the majority of patient's children for which she has 2 daughters. Other daughter is Debo Dolan who resides in [place]. Pending contact info, V[employer] Access report list old address in [place] but no telephone number. * GOALS OF CARE: Daughter Cata electing to continue aggressive medical management to include FULL code, with the understanding that patient's clinical condition is critical with poor prognosis secondary to MSOF, sepsis, cardiogenic shock, multiple chronic comorbidities, multiple recent acute hospitalizations, profound physical deconditioning and advanced age. Daughter likely to proceed with tracheostomy and PEG tube placement if patient is unable to wean off ventilator support. * 03/18/19 -Family meeting. Met with daughter Cata Yin. Medical update provided. Discussed and patient remains critically ill and unstable requiring mechanical ventilation and 2 vasopressors at this time. Reviewed poor prognosis secondary to MSOF, sepsis, cardiogenic shock, multiple chronic comorbidities, multiple recent acute hospitalizations, profound physical deconditioning and advanced age. Introduced trach and PEG discussion if patient unable to liberate from ventilator support. Discussed risks, benefits and limitations of trach and peg given patient's poor prognosis. Discussed continuation of aggressive care vs comfort-directed care. * SYMPTOMS: = Shortness of breath, remains orally intubated on mechanical ventilation. Patient currently on Versed for sedation. = Debility, progressive and worsened since December 2016. * Spiritual services offered and accepted. * Palliative care contact information has been provided to patient's daughter Caat. * Palliative care will continue to follow-up for further clarifications of goals of care as patient's clinical course continue to evolve. . (Amy Turk) Time Spent Total Floor Time (mins): 42 (Total time to include review of medical records, physical exam, family meeting with patient's daughter.) >50% Counseling/Coord of Care: Yes (Amy Turk) Attestation To help prompt me to consider important information that might be impacting today's encounter and assessment, information from prior notes written by myself or my colleagues may have been "brought forward" into today's note. My signature on this note, however, is an attestation that I personally performed the exam, history, and/or decision-making noted today, and, unless otherwise indicated, the interactions with patient, family, and staff as well as the review of records all occurred today. I also attest that the listed assessment and stated plan reflect my best clinical judgment today based on the combination of historical information, prior notes, and today's exam/ interactions. When time spent is documented, it refers only to time spent today by the signer, or if indicated, combined time spent today by collaborating physician/nurse practitioner. (Amy Turk) Collaborating MD Comments Patient was discussed with [employer] E[employer] DEVELOPER. Agreeable to assessment and plan. (Lev Cornejo MD) Amy Turk Mar 18, 2017 11:55 Lev Cornejo MD Mar 19, 2017 11:53
[2017-03-18] MEDS ORDERED: BUMETANIDE INJ 1 MG/4 ML VIAL IV PUSH ONE (12:30)
[2017-03-18] MEDS: MIDAZOLAM 100 MG/100 ML INJ 100 ML IV SCH (12:55)
[2017-03-18] MEDS ORDERED: SODIUM CHLOR 0.9% 1000 ML INJ 1,000 ML IV ONE (16:45)
[2017-03-18] MEDS: PHENYLEPHRINE INJ 160 MG in DEXTROSE 5% IN WATE 500 ML INJ 484 ML IV SCH ×2 (17:17)
[2017-03-18] MEDS: DONEPEZIL HCL 5 MG TAB PO SCH (21:33)
[2017-03-18] MEDS: DIGOXIN 0.25 MG TAB PO SCH (21:33)
[2017-03-18] MEDS: cefTRIAXone INJ 2,000 MG in SODIUM CHLORIDE 0.9% INJ 100 ML IV SCH (21:33)
[2017-03-19] VITALS (25 sets, daily range): BP systolic 110–163; BP diastolic 47–116; PULSE 68–78; RESP 14–16; TEMP 98–98.3; O2SAT 96–100
[2017-03-19] MEDS: INSULIN NovoLIN REGULAR SUPPLEMENTAL SCALE SQ SCH ×4 (03:00→21:00)
[2017-03-19] MEDS: CHLORHEXIDINE GLUCONATE 2 % 1 PACK (2 CLOTHS) TOP SCH (04:00)
[2017-03-19 04:02] LABS: HEMATOCRIT 29.6 % (35.0-46.0); HEMO FLAGS DIFF FINAL; LYMPHOCYTE # 0.5 TH/MM3 (1.0-4.8); MEAN CELL VOLUME 96.1 FL (80.0-100.0); MEAN CORPUSCULAR HEMOGLOBIN 31.6 PG (27.0-34.0); MEAN CORPUSCULAR HGB CONC 32.9 % (32.0-36.0); MONO % 4.8 % (0.0-8.0); NEUT % 86.2 % (16.0-70.0); PLATELET COUNT 293 TH/MM3 (150-450); RED BLOOD COUNT 3.08 MIL/MM3 (4.00-5.30); RED CELL DISTRIBUTION WIDTH 15.7 % (11.6-17.2); WHITE BLOOD COUNT 5.8 TH/MM3 (4.0-11.0)
[2017-03-19 04:30] LABS: BICARBONATE 22.6 MEQ/L (21.0-32.0); MAGNESIUM 2.5 MG/DL (1.5-2.5); POTASSIUM 3.5 MEQ/L (3.5-5.1)
[2017-03-19] MEDS: HYDROCORTISONE SOD SUCCINATE 100 MG VIAL IV PUSH SCH ×2 (06:53→15:35)
[2017-03-19] MEDS: LINEZOLID 600 MG TAB PO SCH ×2 (06:53→16:49)
[2017-03-19] MEDS: METOCLOPRAMIDE HCL 10 MG/2 ML VIAL IV PUSH SCH ×3 (06:53→20:33)
[2017-03-19] MEDS: MIDAZOLAM 100 MG/100 ML INJ 100 ML IV SCH (07:10)
--- NOTE | 2017-03-19 07:10 | PD.CARD.PN ---
Subjective Subjective Remarks Vent Objective Medications Current Medications Medications (Trade) Dose Ordered Sig/Arlet Route Start Time Stop Time Status Last Admin Miscellaneous Information 1 Q361D XX 03/11/17 13:45 03/12/17 23:07 (Chlorhexidine 2% Cloth) Taper DAILY@04 TOP 03/12/17 04:00 03/08/18 03:59 03/19/17 04:00 (Chlorhexidine 2% Cloth) 3 pack UNSCH PRN TOP 03/11/17 13:45 (Steph-Colace) 1 tab BID PO 03/11/17 21:00 03/18/17 21:32 (Milk Of Magnesia Liq) 30 ml Q12H PRN PO 03/11/17 13:45 (Senokot) 17.2 mg Q12H PRN PO 03/11/17 13:45 (Dulcolax Supp) 10 mg DAILY PRN RECTAL 03/11/17 13:45 (Lactulose Liq) 30 ml DAILY PRN PO 03/11/17 13:45 (Aspirin Chew) 81 mg DAILY CHEW 03/12/17 09:00 03/18/17 07:55 (Lanoxin) 0.25 mg HS PO 03/11/17 21:00 03/18/17 21:33 (Aricept) 5 mg HS PO 03/11/17 21:00 03/18/17 21:33 Potassium Chloride 10 meq 10 meq DAILY PO 03/12/17 09:00 03/16/17 08:32 Potassium Chloride 100 ml @ 50 mls/hr Q2H PRN IV 03/11/17 14:30 03/16/17 08:32 (KCl 20 Meq Premix Inj) 100 ml @ 50 mls/hr Q2H PRN IV 03/11/17 14:30 Potassium Bicarb/ Potassium Chloride 50 meq 50 meq UNSCH PRN PO 03/11/17 14:30 Potassium Chloride 100 ml @ 25 mls/hr UNSCH PRN IV 03/11/17 14:30 03/18/17 05:17 Potassium Chloride 100 ml @ 50 mls/hr Q2H PRN IV 03/11/17 14:30 (Magnesium Sulfate Inj/NS Inj) 100 ml @ 50 mls/hr UNSCH PRN IV 03/11/17 14:30 03/15/17 08:33 Magnesium Oxide 800 mg 800 mg UNSCH PRN PO 03/11/17 14:30 (Magnesium Sulfate Inj/NS Inj) 100 ml @ 50 mls/hr UNSCH PRN IV 03/11/17 14:30 03/15/17 21:37 Potassium Phosphate 2000 mg 2,000 mg Q4H PRN PO 03/11/17 14:30 (Sodium Phosphate Inj/NS 250 ml Inj) 250 ml @ 42 mls/hr UNSCH PRN IV 03/11/17 14:30 03/15/17 08:33 Potassium Phosphate 2000 mg 2,000 mg UNSCH PRN PO/TUBE 03/11/17 14:28 (Potassium Phosphate Inj/NS 250 ml Inj) 260 ml @ 42 mls/hr UNSCH PRN IV 03/11/17 14:28 (Diflucan) 100 mg DAILY PO 03/11/17 17:00 03/18/17 07:55 Haloperidol Lactate 2 mg 2 mg Q6H PRN IV 03/11/17 17:00 (DOPamine INJ PREMIX) 500 ml @ 6.075 mls/ hr TITRATE IV 03/12/17 10:45 03/13/17 11:18 Terbutaline Sulfate 1 mg 1 mg UNSCH PRN SQ 03/12/17 10:45 (Levophed-Dextrose Drip) 250 ml @ 0 mls/hr TITRATE IV 03/12/17 11:45 03/12/17 19:29 Chlorhexidine Gluconate 15 ml 15 ml BID@08,20 MT 03/12/17 20:00 03/18/17 21:34 Midazolam HCl 100 ml @ 0 mls/hr TITRATE IV 03/12/17 14:00 03/18/17 12:55 Milrinone Lactate 20 mg/Sodium Chloride 100 ml @ 6.07 mls/hr [id number] IV 03/12/17 13:59 03/18/17 16:51 (Neosynephrine Inj/D5W 500 ml Inj) 500 ml @ 0 mls/hr TITRATE IV 03/13/17 03:30 03/18/17 17:17 (Cordarone) 400 mg Q12HR OG-TUBE 03/13/17 09:00 03/18/17 21:32 (Heparin Inj) 5,000 units Q12HR SQ 03/13/17 21:00 Hold 03/14/17 09:53 (D50w (Vial) Inj) 50 ml UNSCH PRN IV 03/14/17 08:30 (Glucagon Inj) 1 mg UNSCH PRN OTHER 03/14/17 08:30 (NovoLIN R SUPPLEMENTAL SCALE) 1 Q6H SQ 03/14/17 09:00 (Protonix Inj) 40 mg BID IV PUSH 03/14/17 21:00 03/18/17 21:32 (SoluCORTEF INJ) 100 mg Q8HR IV PUSH 03/14/17 14:30 03/19/17 06:53 (Reglan Inj) 5 mg Q8HR IV PUSH 03/17/17 09:45 03/19/17 06:53 Linezolid 600 mg 600 mg Q12H PO 03/18/17 06:00 03/19/17 06:53 (Rocephin Inj/NS Inj) 100 ml @ 200 mls/hr Q24H IV 03/17/17 22:00 03/18/17 21:33 Vital Signs / I&O Vital Signs Date Time Temp Pulse Resp B/P Pulse Ox O2 Delivery O2 Flow Rate FiO2 03/19/17 04:39 100 35 03/19/17 04:00 73 03/19/17 02:00 78 03/19/17 00:23 100 35 03/19/17 00:00 98.2 70 14 110/53 100 133/55 03/19/17 00:00 70 03/19/17 00:00 35 03/18/17 22:00 73 03/18/17 21:51 100 35 03/18/17 20:00 98.4 68 14 108/53 100 133/57 03/18/17 20:00 68 03/18/17 20:00 35 03/18/17 19:00 69 14 108/53 100 132/55 03/18/17 18:00 68 14 105/54 100 123/53 03/18/17 17:19 100 35 03/18/17 17:00 63 14 80/41 100 95/43 03/18/17 16:00 35 03/18/17 16:00 98.4 65 25 98/56 100 110/50 03/18/17 15:00 64 37 107/56 100 117/51 03/18/17 14:21 100 35 03/18/17 14:00 66 30 114/60 100 100/81 03/18/17 13:00 72 14 111/58 100 126/60 03/18/17 12:00 35 03/18/17 12:00 99.0 66 17 110/56 100 125/58 03/18/17 11:09 100 35 03/18/17 11:00 77 22 114/63 89 130/63 03/18/17 10:00 66 28 120/65 100 129/55 03/18/17 09:00 65 20 106/57 100 117/49 03/18/17 08:02 67 14 110/55 100 125/53 03/18/17 08:00 98.0 66 14 125/53 100 03/18/17 08:00 35 03/18/17 07:33 100 35 I/O 03/18/17 03/18/17 03/18/17 03/19/17 03/19/17 03/19/17 06:59 14:59 22:59 06:59 14:59 22:59 Intake Total 335 ml 280 ml 1526 ml Output Total 225 ml 275.0 ml 475 ml Balance 110 ml 5.0 ml 1051 ml IV Total 260 ml 155 ml 1321 ml Tube Feeding 75 ml 125 ml 205 ml Output Urine Total 175 ml 75 ml 375 ml Stool Total 50 ml 100 ml 100 ml Tube Feeding Residual Discard 100.0 ml Physical Exam GENERAL: Well developed, well nourished. No acute distress. HEENT: Jugular venous pressure is normal. CHEST: Lungs decreased CTA to auscultation bilaterally. Unlabored respiratory effort. CARDIAC: regular rate and rhythm without S3, S4, or murmur. ABDOMEN: Soft, nontender, EXTREMITIES: No clubbing, Laboratory Laboratory Tests Test 03/18/17 03/19/17 07:17 03:30 Blood Gas Puncture Site SARA Blood Gas Patient Temperature 98.6 Blood Gas HCO3 18 mmol/L Blood Gas Base Excess -5.7 mmol/L Blood Gas Oxygen Saturation 97 % Arterial Blood pH 7.42 Arterial Blood Partial 28 mmHg Pressure CO2 Arterial Blood Partial 155 mmHg Pressure O2 Arterial Blood Oxygen Content 13.4 Vol % Arterial Blood 1.5 % Carboxyhemoglobin Arterial Blood Methemoglobin 1.2 % Blood Gas Hemoglobin 9.6 G/DL Oxygen Delivery Device VENTILATOR Blood Gas Ventilator Setting A/C14/500/PEEP5 Blood Gas Inspired Oxygen 35 % White Blood Count 5.8 TH/MM3 Red Blood Count 3.08 MIL/MM3 Hemoglobin 9.7 GM/DL Hematocrit 29.6 % Mean Corpuscular Volume 96.1 FL Mean Corpuscular Hemoglobin 31.6 PG Mean Corpuscular Hemoglobin 32.9 % Concent Red Cell Distribution Width 15.7 % Platelet Count 293 TH/MM3 Mean Platelet Volume 8.0 FL Neutrophils (%) (Auto) 86.2 % Lymphocytes (%) (Auto) 9.0 % Monocytes (%) (Auto) 4.8 % Eosinophils (%) (Auto) 0.0 % Basophils (%) (Auto) 0.0 % Neutrophils # (Auto) 5.0 TH/MM3 Lymphocytes # (Auto) 0.5 TH/MM3 Monocytes # (Auto) 0.3 TH/MM3 Eosinophils # (Auto) 0.0 TH/MM3 Basophils # (Auto) 0.0 TH/MM3 CBC Comment DIFF FINAL Differential Comment Sodium Level 142 MEQ/L Potassium Level 3.5 MEQ/L Chloride Level 110 MEQ/L Carbon Dioxide Level 22.6 MEQ/L Anion Gap 9 MEQ/L Blood Urea Nitrogen 37 MG/DL Creatinine 1.34 MG/DL Estimat Glomerular Filtration 38 ML/MIN Rate Random Glucose 105 MG/DL Calcium Level 8.1 MG/DL Phosphorus Level 3.3 MG/DL Magnesium Level 2.5 MG/DL Assessment and Plan Assessment and Plan AF- good rate control, -reduce amio load and dig -heparin for anticoagulation, though usp controversial with anemia NSTEMI- EF 25%, 03/19- no change -continue conservative measures -BB and BUBBA remain relatively contraindicated, on pressors and milrinone -poor/not revasc candidate secondary to comorbid conditions Cardiomyopathy- as above, on milrinone- unable to wean resp - on vent Anemia UTI sepsis- CCM- ID Prognosis is poor with multisystem failure (>50%)- discussed with daughter yesterday Xiao Keys MD Mar 19, 2017 07:09
[2017-03-19] MEDS: ASPIRIN 81 MG CHEW TAB CHEW SCH (08:27)
[2017-03-19] MEDS: POTASSIUM CHLORIDE 10 MEQ CAP PO SCH (08:27)
[2017-03-19] MEDS: FLUCONAZOLE 100 MG TAB PO SCH (08:27)
[2017-03-19] MEDS: DOCUSATE SODIUM 50 MG/SENNA 8.6 MG TAB PO SCH ×2 (08:27→20:33)
[2017-03-19] MEDS: PANTOPRAZOLE SODIUM 40 MG VIAL IV PUSH SCH ×2 (08:27→20:32)
[2017-03-19] MEDS: AMIODARONE 200 MG TAB OG-TUBE SCH (08:27)
[2017-03-19] MEDS: CHLORHEXIDINE 0.12% (ORAL KIT) 15 ML CUP MT SCH ×2 (08:27→20:32)
[2017-03-19] MEDS: MILRINONE INJ 20 MG in SODIUM CHLORIDE 0.9% INJ 80 ML IV SCH (10:49)
--- NOTE | 2017-03-19 13:20 | HHI.GIFU ---
Subjective Remarks Patient remains critically ill, on pressors, receiving TF at rate 20 ml/hr. No bleeding reported. (Ruthann Elise) Objective Vitals I&O Vital Signs Date Time Temp Pulse Resp B/P Pulse Ox O2 Delivery O2 Flow Rate FiO2 03/19/17 12:41 98 35 03/19/17 08:43 100 35 03/19/17 06:00 68 03/19/17 04:39 100 35 03/19/17 04:00 98.0 68 14 130/60 100 147/61 03/19/17 04:00 73 03/19/17 04:00 35 03/19/17 02:00 78 03/19/17 00:23 100 35 03/19/17 00:00 98.2 70 14 110/53 100 133/55 03/19/17 00:00 70 03/19/17 00:00 35 03/18/17 22:00 73 03/18/17 21:51 100 35 03/18/17 20:00 98.4 68 14 108/53 100 133/57 03/18/17 20:00 68 03/18/17 20:00 35 03/18/17 19:00 69 14 108/53 100 132/55 03/18/17 18:00 68 14 105/54 100 123/53 03/18/17 17:19 100 35 03/18/17 17:00 63 14 80/41 100 95/43 03/18/17 16:00 35 03/18/17 16:00 98.4 65 25 98/56 100 110/50 03/18/17 15:00 64 37 107/56 100 117/51 03/18/17 14:21 100 35 03/18/17 14:00 66 30 114/60 100 100/81 I/O 03/18/17 03/18/17 03/18/17 03/19/17 03/19/17 03/19/17 07:00 15:00 23:00 07:00 15:00 23:00 Intake Total 335 ml 280 ml 1526 ml 302 ml Output Total 225 ml 275.0 ml 475 ml 230 ml Balance 110 ml 5.0 ml 1051 ml 72 ml IV Total 260 ml 155 ml 1321 ml 168 ml Tube Feeding 75 ml 125 ml 205 ml 134 ml Output Urine Total 175 ml 75 ml 375 ml 150 ml Stool Total 50 ml 100 ml 100 ml 80 ml Tube Feeding Residual Discard 100.0 ml Laboratory Laboratory Tests Test 03/19/17 03:30 White Blood Count 5.8 Red Blood Count 3.08 Hemoglobin 9.7 Hematocrit 29.6 Mean Corpuscular Volume 96.1 Mean Corpuscular Hemoglobin 31.6 Mean Corpuscular Hemoglobin 32.9 Concent Red Cell Distribution Width 15.7 Platelet Count 293 Mean Platelet Volume 8.0 Neutrophils (%) (Auto) 86.2 Lymphocytes (%) (Auto) 9.0 Monocytes (%) (Auto) 4.8 Eosinophils (%) (Auto) 0.0 Basophils (%) (Auto) 0.0 Neutrophils # (Auto) 5.0 Lymphocytes # (Auto) 0.5 Monocytes # (Auto) 0.3 Eosinophils # (Auto) 0.0 Basophils # (Auto) 0.0 CBC Comment DIFF FINAL Differential Comment Sodium Level 142 Potassium Level 3.5 Chloride Level 110 Carbon Dioxide Level 22.6 Anion Gap 9 Blood Urea Nitrogen 37 Creatinine 1.34 Estimat Glomerular Filtration 38 Rate Random Glucose 105 Calcium Level 8.1 Phosphorus Level 3.3 Magnesium Level 2.5 Date/Time Procedure Status Source Growth 03/14/17 13:17 Stool Occult Blood (DANIAL) - Final Complete Stool Stool HEMOCCULT NEGATIVE Imaging Last Impressions Chest X-Ray 03/17/17 0000 Signed Impressions: Service Date/Time: Friday, March 17, 2017 09:37 - CONCLUSION: 1. Persistent parenchymal changes left base 2. Support apparatus in good position without pneumothorax. Jj Gee MD FACR Abdomen Ultrasound 03/16/17 0000 Signed Impressions: Service Date/Time: Thursday, March 16, 2017 20:35 - CONCLUSION: 1. Right renal cyst and multiple hepatic cysts. 2. Echogenic lesion in liver measures 1.8 cm likely hemangioma. Contrasted MRI may be warranted for confirmation. 3. Cholelithiasis. Evans Augustin MD Head CT 03/12/17 0000 Signed Impressions: Service Date/Time: Sunday, March 12, 2017 13:00 - CONCLUSION: 1. Cerebral atrophy and chronic ischemic small vessel vasculopathy. Evans Augustin MD Physical Exam HEENT: Normocephalic; atraumatic; no jaundice. CHEST: OETT to vent. Decreased lung sounds. CARDIAC: RRR ABDOMEN: Soft, nondistended, nontender; no hepatosplenomegaly; bowel sounds x 4 quadrants. EXTREMITIES: Generalized edema SKIN: Normal; no rash; no jaundice. HOCKEY SCOUT: Sedated on vent. (Ruthann Elise) Assessment and Plan Plan ASSESSMENT: - Anemia with drop in Hgb. No obvious GI bleeding. No vomiting. No rectal bleeding. She was noted to have an HH of 9.9/30.3 on admission and this had been slowly been trending down. S/P transfusion 03/14. Daughter, Cata Yin , states her mother was recently hospitalized at [facility] in [place] for GIB and evaluated with egd/colonoscopy and found to have an ulcer. She reports that she was not happy with the care her mother was receiving and then transferred her to [facility] for further tx. She has been on Protonix at home. She was on heparin here, until today when it was placed on hold. Protonix BID dosing. Hemoccult stool negative. Monitor HH, tx as necessary. Consider repeat EGD if active bleeding/drop in hgb. Will try to obtain records from recent hospitalization for gi bleeding. - NSTEMI, Atrial fibrillation, CMP. Cardiology following, not a candidate for revascularization. Medical management. - Respiratory failure. Vent per [facility]. - Sepsis, UTI. Urine cx on admission with seht albicans and enterococcus faecium. Zyvox, Zosyn BCx no growth 2 days, sputum culture shows moderate growth of normal respiratory ashwin at 24 hours, urine culture shows seth albicans and enterococcus faecium Vre. - WALESKA with electrolyte abnormalities. Per [facility] - Dementia. Per [facility] 17 H&H today 10.6/31.4, no rectal bleeding, no N/V, no hematemesis, still on pressors US revealed liver lesion, and recommended MRI. Liver enzymes have normalized 03-19-17- No obvious GI bleeding. No vomiting. No rectal bleeding. hh 9.7/29.6 PLAN - TF per dietary recommendations - Cont. Protonix 40mg IV BID - Monitor HH - Transfuse as necessary - Monitor labs - MRI for f/u on liver lesion, this could be done as an OP. - Supportive care - Further recommendations to follow based on results of above Patient seen and examined by Dr. Smith and myself and this note is written on his behalf (Ruthann Elise) Physician Comments Patient seen and examined Agree with above Continue with current supportive care Monitor labs At this point the patient appears to be stable from a GI perspective therefore we will sign off please reconsult as needed (Kadeem Smith MD) Ruthann Elise Mar 19, 2017 13:20 Kadeem Smith MD Mar 19, 2017 21:28
[2017-03-19] MEDS: RESP: ALBUTEROL 2.5 MG/IPRATROPIUM 0.5 MG NEB (PRN) INH (14:33)
--- NOTE | 2017-03-19 19:57 | HHI.CCPN ---
Subjective Remarks/Hospital Course Patient is an 82-year-old female with past medical history significant for recurrent UTIs, atrial fibrillation, hypertension, dyslipidemia, dementia who was transferred from [place] emergency department after being diagnosed for NSTEMI. She presented with chest pain and EKG showed sinus tachycardia, and troponin was elevated at 4.43. Patient was given aspirin (by EMS) and started on IV heparin infusion. Patient was transferred to [facility] ICU per Dr. Keys's request. Other abnormal labs include BNP of 1330 and potassium of 3. Previous echo showed an ejection fraction of 45%. I evaluated the patient in the ICU. Appears in moderate distress, tachypneic, tachycardic, but denies chest pain (when asked in [place] by RN). Patient was seen by Dr. Keys in the ICU, not a candidate for cardiac catheterization on interventions at this time. 2-D echo is pending. UA shows evidence of UTI. Started on cefepime and Diflucan (yeast present in UA). Repeat troponin and lactic acid pending at this time. SUBJ 03/12: I rounded on patient at about 0830 AM, patient was communicative tachypneic but not in severe distress. I was emergently called to the bedside at 10:30 AM patient was unresponsive agonal breathing with blood pressure 60/29 , bradycardic. Emergently started on dopamine. Patient was not protecting airway and I emergently intubated and placed on mechanical ventilation. An emergency left subclavian central line also placed. Levophed was added due to persistent hypotension. Patient appears to be in severe cardiogenic shock. EF 15 -20% down from 40% on 03/04/17. Patient also has moderate to severe MR, moderate to severe TR with moderate to severe pulmonary hypertension. I have discussed with Dr. Keys, she does not think patient is a candidate for any invasive therapy due to advanced age and comorbidities including dementia. I have updated daughter Cata 03/13: Remains intubated sedated critically ill. Remains on 3 pressors (dopamine , Neftali-Synephrine, milrinone). Urine output diminishing. Patient is in multiorgan failure prognosis poor. Family wants to continue full aggressive care palliative care is following. Urine culture showing group D enterococcus and Soledad. Cefepime discontinued Zosyn started along with vancomycin and continue Diflucan 03/14 Patient is sedated with versed and intubated. On Neosyn 200 mics and Milrinone. T: 100.0 last night. Off Dopamine 03/15 Patient remains intubated and sedated with Versed 5mg/hr, Nesoyn down 112 mics and on Milrinone. Afebrile. s/p transfusion 1unit PRBC yesterday. 03/16 No events overnight. Remains sedated with versed and intubated. On Neosyn and Milrinone. 03/17 Patient is intubated and sedated, Neosyn 100mics and Milrinone. Afebrile. 03/18 No events overnight. On Neosyn is down to 37 mics, Milrinone and sedated with Versed. Afebrile. 03/19: no changes. off pressors. remains on inotrops. remains in significant cariogenic shock and volume overload. still on versed. no improvements. off pathway. family wants aggressive care. Objective Vital Signs Date Time Temp Pulse Resp B/P Pulse Ox O2 Delivery O2 Flow Rate FiO2 03/19/17 18:00 73 03/19/17 18:00 136/65 160/81 03/19/17 16:00 98.3 03/19/17 16:00 35 03/19/17 14:34 100 03/19/17 14:00 14 Intake and Output 03/18/17 03/18/17 03/19/17 08:00 16:00 00:00 Intake Total 335 ml 280 ml 1526 ml Output Total 325.0 ml 175 ml 475 ml Balance 10.0 ml 105 ml 1051 ml Result Diagram: 03/19/17 0330 03/19/17 0330 Imaging Last Impressions Abdomen Ultrasound 03/16/17 0000 Signed Impressions: Service Date/Time: Thursday, March 16, 2017 20:35 - CONCLUSION: 1. Right renal cyst and multiple hepatic cysts. 2. Echogenic lesion in liver measures 1.8 cm likely hemangioma. Contrasted MRI may be warranted for confirmation. 3. Cholelithiasis. Evans Augustin MD Chest X-Ray 03/14/17 0600 Signed Impressions: Service Date/Time: Tuesday, March 14, 2017 03:48 - CONCLUSION: 1. Cardiomegaly and findings of vascular congestion without overt failure. Bilateral lower lobe atelectasis versus pneumonia. This is new when compared with the prior exam. Harvey Cheng MD Head CT 03/12/17 0000 Signed Impressions: Service Date/Time: Sunday, March 12, 2017 13:00 - CONCLUSION: 1. Cerebral atrophy and chronic ischemic small vessel vasculopathy. Evans Augustin MD Objective Remarks GENERAL: 82-year-old female acutely and chronically critically ill, on vent SKIN: Warm and dry. HEAD: Atraumatic. EYES: Pupils equal and round. No scleral icterus. ENT: No nasal bleeding or discharge. Orotracheally intubated NECK: Positive JVD CARDIOVASCULAR: Tachycardic. Systolic murmur at the apex. Remains on milrinone, RESPIRATORY: Air entry equal bilaterally. Few basilar crackles GASTROINTESTINAL: Abdomen soft, non-tender, nondistended. NEUROLOGICAL: Intubated sedated. Occasionally opens eyes. Moving all extremities not following commands on sedation A/P Assessment and Plan Assessment: 82yF now in cardiogenic shock with multiorgan system failure. unlikely to improve. family continues to want aggressive care. will continue force diuresis despite kidney injury. continue milrinone. very poor prognosis. very critically ill, remains in shock and multiorgan system dysfunction, off pathway. if we withdraw support, she will . NEURO: Acute encephalopathy Dementia d/c versed infusion as this is known to worsen delirium and mortality risk in elderly patients. start fentanyl infusion for goal RASS -2. start zyprexa 5mg po q8hr for delirium breakthrough haldol 5mg iv q4h prn melatonin 5mg po qhs for improved sleep-wake orientation. Continue home Aricept Encephalopathy most likely secondary to metabolic causes RESP: Acute respiratory failure- persistent, not improving. History of COPD Pulmonary artery hypertension Continue with vent support and keep sat >92% Ventilator bundle. DuoNeb scheduled and when necessary failing daily SBTs for cardiogenic shock, altered mental status. CV: NSTEMI Cardiogenic shock- persistent, severe Acute systolic heart failure Lactic acidosis Ischemic cardiomyopathy with ejection fraction 15-20% Moderate to severe mitral and tricuspid regurgitation History of A. fib s/p 2.5L bolus 03/11. All IV fluids discontinued due to pulmonary edema Ejection fraction 15-20% , in comparison to echocardiogram on 03/04/17 EF 40% Wean down pressors ( On Neosyn 37 mics, Milrinone) keep MAP>65mmHg d/c stress dose steroids. Arterial line And flow track monitoring Amiodarone 400mg Q12 started by Dr. Keys, On Digoxin 0.25mg daily, Dig level: 1.4 on 03/14 Lactic acid trending down 1.9 03/14 -- start lasix 80mg iv q6h -- continue milrinone GI: IV Protonix 40mg BID s/p transfusion 1unit PRBC, GI is following. On Glucenra 1.5 On Reglan 5mg IV Q8 : acute kidney injury- secondary to cardiogenic shock Monitor renal function , I/O's, electrolytes replacement per protocol. renal function not improving. not adequately perfused. ID: Severe sepsis- resolved. UTI 03/11 Urine culture growing Soledad and group D enterococcus(VRE) 03/14 Urine cx: C. Albicans Continue abx( Rocephin, Diflucan, Zyvox) monitor for signs of infections ( Fever , WBC) ID is following- Dr. Domínguez HEME: Monitor CBC, CMP, coags s/p [id number] PRBC 03/14 ENDO: SSI for glycemic control Electrolyte replacement protocol PROPH: Bilateral lower extremity SCDs. SQ Heparin on hold for anemia requiring blood transfusion, Protonix LINES: Left subclavian central line, Right Femoral Art line- placed 03/12 CC time 33 min excluding procedures Palliative care following Kevin Rosas MD Mar 19, 2017 19:57
[2017-03-19] MEDS ORDERED: fentaNYL DRIP 250 ML IV SCH (20:00)
--- NOTE | 2017-03-19 20:19 | HHI.IDPN ---
Subjective Subjective Remarks pt is not responsive Having diarrhea UOP is low Antibiotics zosyn zyvox fluconazol Allergies: Coded Allergies: Aspirin (Verified Allergy, Unknown, 03/11/17) pt sts ulcer *MDRO Multi-Drug Resistant Organism (Verified Adverse Reaction, Unknown, ) VRE (urine) 03/11/17 Uncoded Allergies: antipsycotics (Allergy, Intermediate, Confusion, 03/01/17) Objective . Vital Signs Date Time Temp Pulse Resp B/P Pulse Ox O2 Delivery O2 Flow Rate FiO2 03/19/17 20:01 97 35 03/19/17 18:00 73 03/19/17 18:00 73 136/65 160/81 03/19/17 17:00 70 127/61 154/68 03/19/17 16:00 98.3 03/19/17 16:00 35 03/19/17 16:00 75 03/19/17 16:00 75 134/67 161/70 03/19/17 15:34 74 136/69 121/116 03/19/17 15:00 71 139/69 113/113 03/19/17 14:34 100 35 03/19/17 14:00 75 03/19/17 14:00 75 14 146/72 100 144/100 03/19/17 14:00 75 146/72 144/100 03/19/17 13:00 72 14 136/66 100 163/74 03/19/17 13:00 72 03/19/17 13:00 72 136/66 163/74 03/19/17 12:41 98 35 03/19/17 12:00 35 03/19/17 12:00 69 14 136/68 100 144/56 03/19/17 12:00 69 03/19/17 12:00 69 136/68 144/56 03/19/17 11:00 72 127/66 139/55 03/19/17 11:00 72 03/19/17 11:00 72 14 127/66 100 139/55 03/19/17 10:00 70 119/60 130/51 03/19/17 10:00 70 03/19/17 10:00 70 14 119/60 100 130/51 03/19/17 09:00 69 03/19/17 09:00 69 14 117/59 100 124/47 03/19/17 09:00 69 117/59 124/47 03/19/17 08:43 100 35 03/19/17 08:00 70 139/63 150/62 03/19/17 08:00 35 03/19/17 08:00 70 03/19/17 08:00 70 14 139/63 100 150/62 03/19/17 06:00 68 03/19/17 04:39 100 35 03/19/17 04:00 98.0 68 14 130/60 100 147/61 03/19/17 04:00 73 03/19/17 04:00 35 03/19/17 02:00 78 03/19/17 00:23 100 35 03/19/17 00:00 98.2 70 14 110/53 100 133/55 03/19/17 00:00 70 03/19/17 00:00 35 03/18/17 22:00 73 03/18/17 21:51 100 35 03/18/17 03/18/17 03/19/17 15:00 23:00 07:00 Intake Total 280 ml 1526 ml 302 ml Output Total 275.0 ml 475 ml 230 ml Balance 5.0 ml 1051 ml 72 ml IV Total 155 ml 1321 ml 168 ml Tube Feeding 125 ml 205 ml 134 ml Output Urine Total 75 ml 375 ml 150 ml Stool Total 100 ml 100 ml 80 ml Tube Feeding Residual Discard 100.0 ml . Laboratory Tests Test 03/18/17 03/19/17 02:50 03:30 White Blood Count 5.9 TH/MM3 5.8 TH/MM3 Red Blood Count 2.99 MIL/MM3 3.08 MIL/MM3 Hemoglobin 9.5 GM/DL 9.7 GM/DL Hematocrit 28.1 % 29.6 % Mean Corpuscular Volume 94.2 FL 96.1 FL Mean Corpuscular Hemoglobin 31.7 PG 31.6 PG Mean Corpuscular Hemoglobin 33.7 % 32.9 % Concent Red Cell Distribution Width 15.5 % 15.7 % Platelet Count 297 TH/MM3 293 TH/MM3 Mean Platelet Volume 8.6 FL 8.0 FL Neutrophils (%) (Auto) 86.1 % 86.2 % Lymphocytes (%) (Auto) 9.0 % 9.0 % Monocytes (%) (Auto) 4.8 % 4.8 % Eosinophils (%) (Auto) 0.0 % 0.0 % Basophils (%) (Auto) 0.1 % 0.0 % Neutrophils # (Auto) 5.0 TH/MM3 5.0 TH/MM3 Lymphocytes # (Auto) 0.5 TH/MM3 0.5 TH/MM3 Monocytes # (Auto) 0.3 TH/MM3 0.3 TH/MM3 Eosinophils # (Auto) 0.0 TH/MM3 0.0 TH/MM3 Basophils # (Auto) 0.0 TH/MM3 0.0 TH/MM3 CBC Comment DIFF FINAL DIFF FINAL Differential Comment Laboratory Tests Test 03/18/17 03/18/17 03/19/17 00:30 02:50 03:30 Potassium Level 3.5 MEQ/L 3.5 MEQ/L 3.5 MEQ/L Sodium Level 140 MEQ/L 142 MEQ/L Chloride Level 107 MEQ/L 110 MEQ/L Carbon Dioxide Level 20.5 MEQ/L 22.6 MEQ/L Anion Gap 13 MEQ/L 9 MEQ/L Blood Urea Nitrogen 34 MG/DL 37 MG/DL Creatinine 1.35 MG/DL 1.34 MG/DL Estimat Glomerular Filtration 37 ML/MIN 38 ML/MIN Rate Random Glucose 104 MG/DL 105 MG/DL Calcium Level 8.3 MG/DL 8.1 MG/DL Phosphorus Level 3.3 MG/DL Magnesium Level 2.5 MG/DL Imaging Last Impressions Chest X-Ray 03/17/17 0000 Signed Impressions: Service Date/Time: Friday, March 17, 2017 09:37 - CONCLUSION: 1. Persistent parenchymal changes left base 2. Support apparatus in good position without pneumothorax. Jj Gee MD FACR Abdomen Ultrasound 03/16/17 0000 Signed Impressions: Service Date/Time: Thursday, March 16, 2017 20:35 - CONCLUSION: 1. Right renal cyst and multiple hepatic cysts. 2. Echogenic lesion in liver measures 1.8 cm likely hemangioma. Contrasted MRI may be warranted for confirmation. 3. Cholelithiasis. Evans Augustin MD Head CT 03/12/17 0000 Signed Impressions: Service Date/Time: Sunday, March 12, 2017 13:00 - CONCLUSION: 1. Cerebral atrophy and chronic ischemic small vessel vasculopathy. Evans Augustin MD Physical Exam CONSTITUTIONAL/GENERAL: This is an adequately nourished patient, in no apparent distress. TUBES/LINES/DRAINS: SKIN: No jaundice, rashes, or lesions. Not diaphoretic. ENT: Hearing not tested. Nose without bleeding or purulent drainage. orally intubated without visible erythema, exudates, masses, or lesions. CARDIOVASCULAR: Regular rate and rhythm without murmurs, gallops, or rubs. RESPIRATORY/CHEST: Symmetric, unlabored respirations. Clear to auscultation. Breath sounds equal bilaterally. No wheezes, rales, or rhonchi. GASTROINTESTINAL: Abdomen soft, no reaction to palpation, mildly distended. GENITOURINARY: Without palpable bladder distension. Abrams catheter in place with clear yellow urine MUSCULOSKELETAL: Extremities without clubbing, + edema. No cyanosis, perfused extremeties NEUROLOGICAL: unresponsive PSYCHIATRIC: unable to assess Assessment & Plan Remarks NSTEMI Heart hfailure with cardiogenic shock VRE UTI sp zyvox Candiduria Acute VDRF Bilateral lower lobe atelectasis versus early pneumonia - clx with nl resp ashwin Critically ill and unstable Abx associated diarrhea, C.diff negative REC's: dc fluconazole dc zosyn complete CFTX complete zyvox po tomorrow (7 days) ro C.diff dw Tracie Escalante RN, MD Mar 19, 2017 20:19
[2017-03-19] MEDS: MELATONIN 5 MG TAB PO SCH (20:33)
[2017-03-19] MEDS: cefTRIAXone INJ 2,000 MG in SODIUM CHLORIDE 0.9% INJ 100 ML IV SCH (20:34)
[2017-03-19] MEDS: FUROSEMIDE 100 MG/10 ML VIAL IV PUSH SCH (20:35)
[2017-03-19] MEDS ORDERED: DIGOXIN 0.25 MG TAB PO SCH (21:00)
[2017-03-20] VITALS (48 sets, daily range): BP systolic 65–182; BP diastolic 35–102; PULSE 58–77; RESP 14–57; TEMP 98.7–99.4; O2SAT 98–100
[2017-03-20] MEDS: DIGOXIN 0.125 MG TAB PO SCH ×2 (00:31→21:56)
[2017-03-20] MEDS: DONEPEZIL HCL 5 MG TAB PO SCH ×2 (00:31→20:49)
[2017-03-20] MEDS: OLANZapine ODT 5 MG TAB PO SCH ×4 (00:46→20:48)
[2017-03-20] MEDS: INSULIN NovoLIN REGULAR SUPPLEMENTAL SCALE SQ SCH ×4 (03:00→21:00)
[2017-03-20] MEDS: FUROSEMIDE 100 MG/10 ML VIAL IV PUSH SCH ×4 (03:20→20:48)
[2017-03-20] MEDS: CHLORHEXIDINE GLUCONATE 2 % 1 PACK (2 CLOTHS) TOP SCH (04:00)
[2017-03-20 05:14] LABS: MEAN CELL VOLUME 94.2 FL (80.0-100.0); MEAN CORPUSCULAR HEMOGLOBIN 32.4 PG (27.0-34.0); MEAN CORPUSCULAR HGB CONC 34.4 % (32.0-36.0); PLATELET COUNT 173 TH/MM3 (150-450); RED BLOOD COUNT 2.76 MIL/MM3 (4.00-5.30); RED CELL DISTRIBUTION WIDTH 15.7 % (11.6-17.2); REVIEW FLAG FINAL; WHITE BLOOD COUNT 5.1 TH/MM3 (4.0-11.0)
[2017-03-20] MEDS: PANTOPRAZOLE SODIUM 40 MG VIAL IV PUSH SCH ×2 (07:35→20:47)
[2017-03-20] MEDS: METOCLOPRAMIDE HCL 10 MG/2 ML VIAL IV PUSH SCH ×3 (07:35→21:56)
[2017-03-20] MEDS: ASPIRIN 81 MG CHEW TAB CHEW SCH (07:36)
[2017-03-20] MEDS: DOCUSATE SODIUM 50 MG/SENNA 8.6 MG TAB PO SCH ×2 (07:36→20:48)
[2017-03-20] MEDS: LINEZOLID 600 MG TAB PO SCH ×2 (07:36→18:12)
[2017-03-20] MEDS: AMIODARONE 200 MG TAB OG-TUBE SCH (07:36)
[2017-03-20] MEDS: POTASSIUM CHLORIDE 10 MEQ CAP PO SCH (07:36)
[2017-03-20] MEDS: CHLORHEXIDINE 0.12% (ORAL KIT) 15 ML CUP MT SCH ×2 (07:37→20:00)
[2017-03-20] MEDS ORDERED: NYSTATIN 100,000 U/GM PWD 15 GM BTL TOPICAL PRN (10:45)
--- NOTE | 2017-03-20 11:26 | HHI.HCPN ---
Reason for visit a. To assist with evaluation and management of symptoms including: Shortness of breath and debility. b. To assist medical decision maker(s) with: better understanding of current medical conditions; weighing benefits/burdens of medical treatment options; making medical treatment decisions. . Subjective/Interval History Mrs. Franco is a 82-year-old female with a past medical history of dementia originally diagnosed in 2013, recurrent UTIs, urinary retention, hypertension and atrial fibrillation. Patient presented to ED on 03/11/17 via EMS for evaluation of chest pain. Patient was transfer to [facility] for further management of non-STEMI, not a candidate for any invasive procedures. Echocardiogram showing EF of 20% from the echo on 03/04/17 showing EF of 45%. In addition, moderate to severe mitral valve regurgitation. Clinical course complicated by severe cardiac shock, intubation and mechanical ventilation in addition to vasopressors. Palliative care has been consulted for further clarifications of goals of care given patient's worsening clinical condition and poor prognosis. Patient seen in ICU. She remained orally intubated on mechanical ventilation. Unresponsive to verbal or tactile stimuli. Patient remains in significant cardiogenic shock, on Primacor drip. Hypotensive this morning, SBT 70s to 80s, she was restarted on Neftali-Synephrine. A febrile, 35% FiO2. Stable hemoglobin 9.0. No new imaging for review today. Telephone call to patient's daughter. Medical update provided. Palliative care to continue goals of care conversation once patient's daughter arrived. Case discussed with Dr. Rosas and bedside RN Mali. 12:30. Meeting with patient's daughter Cata Yin. Telephone conversation with other daughter Debo Dolan. Dr. Rosas provided medical update. Share concerns of patient's worsening clinical status to include cardiogenic shock and volume overload, requiring the addition of Neftali-Synephrine for persistent hypotension. Reviewed the patient is at a very high risk for further complications, clinical decline and . Daughter Cata verbalized wishing to do "everything humanly possible to maintain my mother alive", "I'm not going to DNR my mom". Discussed that given patient's clinical status, she is not likely to wean off ventilator support. Discussed continuation of aggressive management to include full code and tracheostomy/PEG tube placement. Daughter Cata electing to proceed with tracheostomy and PEG tube placement. . Family/friend interactions See interval note. . Advance Directives Living Will: Never completed Health Care Surrogate: Completed, but not made available Durable Power of Student Outreach Coordinator: Copy in medical record Advance Directive Specifics Date completed: 03/28/2011 -power of application services manager only. Health Care Surrogate(s): As per daughter Cata Yin, she is the designated healthcare surrogate. Pending designation of healthcare surrogate/living will. . Documented care wishes: Pending copy of living will. . Significant change in goals: Full code. Continue aggressive management to include tracheostomy and PEG tube placement. . Objective Vital Signs Date Time Temp Pulse Resp B/P Pulse Ox O2 Delivery O2 Flow Rate FiO2 03/20/17 11:00 69 46 119/58 100 156/76 03/20/17 10:40 68 29 107/58 100 128/58 03/20/17 10:20 68 31 121/60 100 137/64 03/20/17 10:18 100 35 03/20/17 10:00 67 29 116/57 100 141/65 03/20/17 09:41 65 21 119/59 100 148/69 03/20/17 09:32 66 30 74/44 100 91/52 03/20/17 09:21 68 33 74/44 100 93/53 03/20/17 09:20 66 32 77/46 100 96/53 03/20/17 09:00 69 23 84/47 100 106/56 03/20/17 08:40 69 24 112/56 100 143/66 03/20/17 08:20 75 18 129/60 100 164/76 03/20/17 08:07 58 27 136/70 100 182/96 03/20/17 08:04 68 21 65/38 100 81/48 03/20/17 08:01 67 20 65/35 100 78/47 03/20/17 08:00 67 24 79/47 100 03/20/17 06:00 66 03/20/17 06:00 66 86/48 111/55 03/20/17 04:00 98.7 62 32 82/46 98 106/54 03/20/17 04:00 35 03/20/17 04:00 62 03/20/17 02:09 99 35 03/20/17 02:00 62 03/20/17 00:00 35 7/27/17 00:00 64 03/20/17 00:00 99.4 64 14 93/51 100 104/41 03/19/17 23:25 100 35 03/19/17 22:00 68 03/19/17 20:01 97 35 03/19/17 20:00 98.1 74 16 132/63 96 152/98 03/19/17 20:00 74 03/19/17 20:00 35 03/19/17 18:00 73 03/19/17 18:00 73 136/65 160/81 03/19/17 17:00 70 127/61 154/68 03/19/17 16:00 98.3 03/19/17 16:00 35 03/19/17 16:00 75 03/19/17 16:00 75 134/67 161/70 03/19/17 15:34 74 136/69 121/116 03/19/17 15:00 71 139/69 113/113 03/19/17 14:34 100 35 03/19/17 14:00 75 03/19/17 14:00 75 14 146/72 100 144/100 03/19/17 14:00 75 146/72 144/100 03/19/17 13:00 72 14 136/66 100 163/74 03/19/17 13:00 72 03/19/17 13:00 72 136/66 163/74 03/19/17 12:41 98 35 03/19/17 12:00 35 03/19/17 12:00 69 14 136/68 100 144/56 03/19/17 12:00 69 03/19/17 12:00 69 136/68 144/56 Intake & Output 03/20/17 03/20/17 06:59 18:59 Intake Total 357 ml Output Total 1052 ml Balance -695 ml IV Total 357 ml Output Urine Total 1050 ml Stool Total 2 ml Physical Exam CONSTITUTIONAL/GENERAL: This is an elderly, frail female who is orally intubated on mechanical ventilation. TUBES/LINES/DRAINS: PIV's, ETT, central line to left upper chest, SCDs, Abarms catheter. SKIN: No jaundice, rashes, or lesions. Ecchymoses on upper extremities. No wounds seen anteriorly. Not diaphoretic. HEAD: Atraumatic. Normocephalic. EYES: Pupils equal and round and reactive, sluggish. No scleral icterus. No injection or drainage. ENT: Unable to assess hearing secondary to clinical condition. Nose without bleeding or purulent drainage. Moist oral mucosa. NECK: Trachea midline. Supple. CARDIOVASCULAR: regular rate and rhythm, systolic murmur. Faint peripheral pulses. Mild mottling of the toes and fingers. RESPIRATORY/CHEST: intubated on mechanical ventilation.Inspiratory and expiratory crackles bilaterally. GASTROINTESTINAL: Abdomen soft, nondistended. Bowel sounds present. GENITOURINARY: Without palpable bladder distension. Abrams catheter in place. MUSCULOSKELETAL: Mild mottling of the toes and fingers noted. Pitting edema all of all 4 extremities. NEUROLOGICAL: Unresponsive to verbal or tactile stimuli. No purposeful movement noted. PSYCHIATRIC: Unable to evaluate secondary to clinical condition. . Diagnostic Tests Laboratory Laboratory Tests Test 03/18/17 03/18/17 03/18/17 03/19/17 00:30 02:50 07:17 03:30 Potassium Level 3.5 MEQ/L 3.5 MEQ/L 3.5 MEQ/L (3.5-5.1) (3.5-5.1) (3.5-5.1) White Blood Count 5.9 TH/MM3 5.8 TH/MM3 (4.0-11.0) (4.0-11.0) Red Blood Count 2.99 MIL/MM3 3.08 MIL/MM3 (4.00-5.30) (4.00-5.30) Hemoglobin 9.5 GM/DL 9.7 GM/DL (11.6-15.3) (11.6-15.3) Hematocrit 28.1 % 29.6 % (35.0-46.0) (35.0-46.0) Mean Corpuscular Volume 94.2 FL 96.1 FL (80.0-100.0) (80.0-100.0) Mean Corpuscular Hemoglobin 31.7 PG 31.6 PG (27.0-34.0) (27.0-34.0) Mean Corpuscular Hemoglobin 33.7 % 32.9 % Concent (32.0-36.0) (32.0-36.0) Red Cell Distribution Width 15.5 % 15.7 % (11.6-17.2) (11.6-17.2) Platelet Count 297 TH/MM3 293 TH/MM3 (150-450) (150-450) Mean Platelet Volume 8.6 FL 8.0 FL (7.0-11.0) (7.0-11.0) Neutrophils (%) (Auto) 86.1 % 86.2 % (16.0-70.0) (16.0-70.0) Lymphocytes (%) (Auto) 9.0 % 9.0 % (9.0-44.0) (9.0-44.0) Monocytes (%) (Auto) 4.8 % (0.0-8.0) 4.8 % (0.0-8.0) Eosinophils (%) (Auto) 0.0 % (0.0-4.0) 0.0 % (0.0-4.0) Basophils (%) (Auto) 0.1 % (0.0-2.0) 0.0 % (0.0-2.0) Neutrophils # (Auto) 5.0 TH/MM3 5.0 TH/MM3 (1.8-7.7) (1.8-7.7) Lymphocytes # (Auto) 0.5 TH/MM3 0.5 TH/MM3 (1.0-4.8) (1.0-4.8) Monocytes # (Auto) 0.3 TH/MM3 0.3 TH/MM3 (0-0.9) (0-0.9) Eosinophils # (Auto) 0.0 TH/MM3 0.0 TH/MM3 (0-0.4) (0-0.4) Basophils # (Auto) 0.0 TH/MM3 0.0 TH/MM3 (0-0.2) (0-0.2) CBC Comment DIFF FINAL DIFF FINAL Differential Comment Sodium Level 140 MEQ/L 142 MEQ/L (136-145) (136-145) Chloride Level 107 MEQ/L 110 MEQ/L (98-107) (98-107) Carbon Dioxide Level 20.5 MEQ/L 22.6 MEQ/L (21.0-32.0) (21.0-32.0) Anion Gap 13 MEQ/L (5-15) 9 MEQ/L (5-15) Blood Urea Nitrogen 34 MG/DL (7-18) 37 MG/DL (7-18) Creatinine 1.35 MG/DL 1.34 MG/DL (0.50-1.00) (0.50-1.00) Estimat Glomerular Filtration 37 ML/MIN (>89) 38 ML/MIN (>89) Rate Random Glucose 104 MG/DL 105 MG/DL (74-106) (74-106) Calcium Level 8.3 MG/DL 8.1 MG/DL (8.5-10.1) (8.5-10.1) Blood Gas Puncture Site SARA Blood Gas Patient Temperature 98.6 Blood Gas HCO3 18 mmol/L (22-26) Blood Gas Base Excess -5.7 mmol/L (-2-2) Blood Gas Oxygen Saturation 97 % (90-100) Arterial Blood pH 7.42 (7.380-7.420) Arterial Blood Partial 28 mmHg (38-42) Pressure CO2 Arterial Blood Partial 155 mmHg Pressure O2 (61-120) Arterial Blood Oxygen Content 13.4 Vol % (12.0-20.0) Arterial Blood 1.5 % (0-4) Carboxyhemoglobin Arterial Blood Methemoglobin 1.2 % (0-2) Blood Gas Hemoglobin 9.6 G/DL (12.0-16.0) Oxygen Delivery Device VENTILATOR Blood Gas Ventilator Setting A/C14/500/PEEP5 Blood Gas Inspired Oxygen 35 % Phosphorus Level 3.3 MG/DL (2.5-4.9) Magnesium Level 2.5 MG/DL (1.5-2.5) Test 03/20/17 04:00 White Blood Count 5.1 TH/MM3 (4.0-11.0) Red Blood Count 2.76 MIL/MM3 (4.00-5.30) Hemoglobin 9.0 GM/DL (11.6-15.3) Hematocrit 26.0 % (35.0-46.0) Mean Corpuscular Volume 94.2 FL (80.0-100.0) Mean Corpuscular Hemoglobin 32.4 PG (27.0-34.0) Mean Corpuscular Hemoglobin 34.4 % Concent (32.0-36.0) Red Cell Distribution Width 15.7 % (11.6-17.2) Platelet Count 173 TH/MM3 (150-450) Mean Platelet Volume 8.3 FL (7.0-11.0) Result Diagram: 03/20/17 0400 03/19/17 0330 Procedures * 03/12/17 -intubation * 03/12/17 -central line placement . Assessment and Plan Disease Oriented Problem List: (1) Severe sepsis (2) Lactic acidosis (3) Encephalopathy acute (4) Urinary tract infection (5) NSTEMI (non-ST elevation myocardial infarction) (6) CHF (congestive heart failure) (7) Dementia (8) Atrial fibrillation Symptom Scale: (1) Shortness of breath 0-10 Scale: Unable to quantify Comment: Remains orally intubated on mechanical ventilation. (2) Debility 0-10 Scale: Unable to quantify Comment: Progressive, worsening since December. Pertinent Non-Medical Issues Psychosocial: . Originally from [place]. has 2 daughters. Spiritual: [employer] oliva. Legal: Daughter reports that advance directives have been completed. Pending copy. Ethical issues impacting care: Patient unable to participate in medical decision -making. Pending copy of living will and designation of healthcare surrogate. Patient has 2 daughters, daughter Cata claims that she is the designated healthcare surrogate. Pending copy of documents. . Important Contacts Daughter Cata Yin & Family friend Kristen Jolly [phone]. . Prognosis Mrs. Fracno is a 82-year-old female with a past medical history of dementia originally diagnosed in 2013, recurrent UTIs, urinary retention, hypertension and atrial fibrillation. Patient with recent prolonged hospitalizations since December 2016. Admitted secondary to non-STEMI. Clinical course complicated by septic/cardiogenic shock, acute respiratory failure, lactic acidosis, congestive heart failure. Very poor prognosis for surviving this hospitalization given her multiple chronic comorbidities, recent prolonged acute hospitalizations, acute events, profound physical deconditioning and advanced age. . Code Status: Full Code Plan * CODE STATUS: Daughter electing for patient to remain FULL code. Risks and limitations of CPR were discussed in great detail with daughter given patient's worsening clinical condition. * HEALTHCARE DECISION-MAKING: Patient unable to participate in medical decision- making secondary to clinical condition, intubated on mechanical ventilation. Daughter Cata Yin presents herself as pt's designated healthcare surrogate , pending copy of designation/living will -daughter to provide copy of documents -only financial power of application services manager has been presented. In the absence of designation of healthcare surrogate, proxy decision-making falls to the majority of patient's children for which she has 2 daughters: Cata Yin AND Debo Dolan . * GOALS OF CARE: Family electing to continue with aggressive management to include full code, tracheostomy and PEG tube placement. Family meeting held today, Dr. Rosas provided medical update. Daughter Cata verbalized wishing to do "everything humanly possible to maintain my mother alive", "I'm not going to DNR my mom". Discussed that patient is at a very high risk for further complications, clinical decline and given acute events, multiple acute comorbidities, multiple recent acute hospitalizations since December, profound physical deconditioning and advanced age. Family verbalized understanding. * SYMPTOMS: = Shortness of breath, remains orally intubated on mechanical ventilation. = Debility, progressive and worsened since December 2016. * Case has been discussed with Dr. Rosas and bedside RN Mali. * Spiritual services offered and accepted. * Palliative care contact information has been provided to patient's daughters Cata and Debo. * Palliative care will continue to follow-up for further clarifications of goals of care as patient's clinical course continue to evolve. . Time Spent Total Floor Time (mins): 50 (Total time to include review and summarization of available medical records, physical exam, goals of care conversation with patient's daughters Debo and Cata and case discussion with Dr. Rosas and bedside RN Mali.) >50% Counseling/Coord of Care: Yes Attestation To help prompt me to consider important information that might be impacting today's encounter and assessment, information from prior notes written by myself or my colleagues may have been "brought forward" into today's note. My signature on this note, however, is an attestation that I personally performed the exam, history, and/or decision-making noted today, and, unless otherwise indicated, the interactions with patient, family, and staff as well as the review of records all occurred today. I also attest that the listed assessment and stated plan reflect my best clinical judgment today based on the combination of historical information, prior notes, and today's exam/ interactions. When time spent is documented, it refers only to time spent today by the signer, or if indicated, combined time spent today by collaborating physician/nurse practitioner. Amy Turk Mar 20, 2017 11:26
--- NOTE | 2017-03-20 16:47 | HHI.IDPN ---
Subjective Subjective Remarks pt is not responsive Having diarrhea remains on vent UOP is better Antibiotics zyvox Allergies: Coded Allergies: Aspirin (Verified Allergy, Unknown, 03/11/17) pt sts ulcer *MDRO Multi-Drug Resistant Organism (Verified Adverse Reaction, Unknown, ) VRE (urine) 03/11/17 Uncoded Allergies: antipsycotics (Allergy, Intermediate, Confusion, 03/01/17) Objective . Vital Signs Date Time Temp Pulse Resp B/P Pulse Ox O2 Delivery O2 Flow Rate FiO2 03/20/17 14:00 69 03/20/17 14:00 69 36 118/59 100 129/57 03/20/17 13:40 67 03/20/17 13:40 67 35 117/58 100 132/58 03/20/17 13:20 72 18 118/62 100 137/60 03/20/17 13:20 72 03/20/17 13:00 72 03/20/17 13:00 72 28 123/61 100 160/77 03/20/17 12:40 71 03/20/17 12:40 71 57 122/59 100 161/78 03/20/17 12:20 70 03/20/17 12:20 70 48 119/57 100 116/102 03/20/17 12:00 35 03/20/17 12:00 71 03/20/17 12:00 71 42 122/60 100 156/77 03/20/17 11:00 69 46 119/58 100 156/76 03/20/17 10:40 68 29 107/58 100 128/58 03/20/17 10:20 68 31 121/60 100 137/64 03/20/17 10:18 100 35 03/20/17 10:15 68 03/20/17 10:00 67 03/20/17 10:00 67 29 116/57 100 141/65 03/20/17 09:45 67 03/20/17 09:41 65 21 119/59 100 148/69 03/20/17 09:41 65 03/20/17 09:32 66 30 74/44 100 91/52 03/20/17 09:32 66 03/20/17 09:30 67 03/20/17 09:21 68 33 74/44 100 93/53 03/20/17 09:21 68 03/20/17 09:20 66 32 77/46 100 96/53 03/20/17 09:20 66 03/20/17 09:15 67 03/20/17 09:00 69 23 84/47 100 106/56 03/20/17 09:00 69 03/20/17 08:45 68 03/20/17 08:40 69 24 112/56 100 143/66 03/20/17 08:40 69 03/20/17 08:30 71 03/20/17 08:20 75 18 129/60 100 164/76 03/20/17 08:20 75 03/20/17 08:15 77 03/20/17 08:07 58 27 136/70 100 182/96 03/20/17 08:07 58 03/20/17 08:04 68 21 65/38 100 81/48 03/20/17 08:04 68 03/20/17 08:01 67 20 65/35 100 78/47 03/20/17 08:01 67 03/20/17 08:00 67 03/20/17 08:00 67 24 79/47 100 03/20/17 06:00 66 03/20/17 06:00 66 86/48 111/55 03/20/17 04:00 98.7 62 32 82/46 98 106/54 03/20/17 04:00 35 03/20/17 04:00 62 03/20/17 02:09 99 35 03/20/17 02:00 62 03/20/17 00:00 35 03/20/17 00:00 64 03/20/17 00:00 99.4 64 14 93/51 100 104/41 03/19/17 23:25 100 35 03/19/17 22:00 68 03/19/17 20:01 97 35 03/19/17 20:00 98.1 74 16 132/63 96 152/98 03/19/17 20:00 74 03/19/17 20:00 35 03/19/17 18:00 73 03/19/17 18:00 73 136/65 160/81 03/19/17 17:00 70 127/61 154/68 03/19/17 03/19/17 03/20/17 15:00 23:00 07:00 Intake Total 419 ml 250 ml 107 ml Output Total 150 ml 501 ml 551 ml Balance 269 ml -251 ml -444 ml IV Total 196 ml 250 ml 107 ml Tube Feeding 163 ml Other 60 ml Output Urine Total 150 ml 500 ml 550 ml Stool Total 1 ml 1 ml # Bowel Movements 3 . Laboratory Tests Test 03/19/17 03/20/17 03:30 04:00 White Blood Count 5.8 TH/MM3 5.1 TH/MM3 Red Blood Count 3.08 MIL/MM3 2.76 MIL/MM3 Hemoglobin 9.7 GM/DL 9.0 GM/DL Hematocrit 29.6 % 26.0 % Mean Corpuscular Volume 96.1 FL 94.2 FL Mean Corpuscular Hemoglobin 31.6 PG 32.4 PG Mean Corpuscular Hemoglobin 32.9 % 34.4 % Concent Red Cell Distribution Width 15.7 % 15.7 % Platelet Count 293 TH/MM3 173 TH/MM3 Mean Platelet Volume 8.0 FL 8.3 FL Neutrophils (%) (Auto) 86.2 % Lymphocytes (%) (Auto) 9.0 % Monocytes (%) (Auto) 4.8 % Eosinophils (%) (Auto) 0.0 % Basophils (%) (Auto) 0.0 % Neutrophils # (Auto) 5.0 TH/MM3 Lymphocytes # (Auto) 0.5 TH/MM3 Monocytes # (Auto) 0.3 TH/MM3 Eosinophils # (Auto) 0.0 TH/MM3 Basophils # (Auto) 0.0 TH/MM3 CBC Comment DIFF FINAL Differential Comment Laboratory Tests Test 03/19/17 03:30 Sodium Level 142 MEQ/L Potassium Level 3.5 MEQ/L Chloride Level 110 MEQ/L Carbon Dioxide Level 22.6 MEQ/L Anion Gap 9 MEQ/L Blood Urea Nitrogen 37 MG/DL Creatinine 1.34 MG/DL Estimat Glomerular Filtration 38 ML/MIN Rate Random Glucose 105 MG/DL Calcium Level 8.1 MG/DL Phosphorus Level 3.3 MG/DL Magnesium Level 2.5 MG/DL Imaging Last Impressions Chest X-Ray 03/17/17 0000 Signed Impressions: Service Date/Time: Friday, March 17, 2017 09:37 - CONCLUSION: 1. Persistent parenchymal changes left base 2. Support apparatus in good position without pneumothorax. Jj Gee MD FACR Abdomen Ultrasound 03/16/17 0000 Signed Impressions: Service Date/Time: Thursday, March 16, 2017 20:35 - CONCLUSION: 1. Right renal cyst and multiple hepatic cysts. 2. Echogenic lesion in liver measures 1.8 cm likely hemangioma. Contrasted MRI may be warranted for confirmation. 3. Cholelithiasis. Evans Augustin MD Head CT 03/12/17 0000 Signed Impressions: Service Date/Time: Sunday, March 12, 2017 13:00 - CONCLUSION: 1. Cerebral atrophy and chronic ischemic small vessel vasculopathy. Evans Augustin MD Physical Exam CONSTITUTIONAL/GENERAL: This is an adequately nourished patient, in no apparent distress. TUBES/LINES/DRAINS: SKIN: No jaundice, rashes, or lesions. Not diaphoretic. ENT: Hearing not tested. Nose without bleeding or purulent drainage. orally intubated without visible erythema, exudates, masses, or lesions. CARDIOVASCULAR: Regular rate and rhythm without murmurs, gallops, or rubs. RESPIRATORY/CHEST: Symmetric, unlabored respirations. Clear to auscultation. Breath sounds equal bilaterally. No wheezes, rales, or rhonchi. GASTROINTESTINAL: Abdomen soft, no reaction to palpation, mildly distended. GENITOURINARY: Without palpable bladder distension. Abrams catheter in place with clear yellow urine MUSCULOSKELETAL: Extremities without clubbing, + edema. No cyanosis, perfused extremeties NEUROLOGICAL: unresponsive PSYCHIATRIC: unable to assess Assessment & Plan Remarks NSTEMI Heart hfailure with cardiogenic shock VRE UTI sp zyvox Candiduria Acute VDRF Bilateral lower lobe atelectasis versus early pneumonia - clx with nl resp ashwin Critically ill and stable Abx associated diarrhea, C.diff negative REC's: complete zyvox po today ro C.diff dw dgtr @ b/s Tracie Guo RN, MD Mar 20, 2017 16:47
--- NOTE | 2017-03-20 17:53 | PD.CARD.PN ---
Subjective Subjective Remarks vent Objective Medications Current Medications Medications (Trade) Dose Ordered Sig/Arlet Route Start Time Stop Time Status Last Admin Miscellaneous Information 1 Q361D XX 03/11/17 13:45 03/12/17 23:07 (Chlorhexidine 2% Cloth) Taper DAILY@04 TOP 03/12/17 04:00 03/08/18 03:59 03/20/17 04:00 (Chlorhexidine 2% Cloth) 3 pack UNSCH PRN TOP 03/11/17 13:45 (Setph-Colace) 1 tab BID PO 03/11/17 21:00 03/20/17 07:36 (Milk Of Magnesia Liq) 30 ml Q12H PRN PO 03/11/17 13:45 (Senokot) 17.2 mg Q12H PRN PO 03/11/17 13:45 (Dulcolax Supp) 10 mg DAILY PRN RECTAL 03/11/17 13:45 (Lactulose Liq) 30 ml DAILY PRN PO 03/11/17 13:45 (Aspirin Chew) 81 mg DAILY CHEW 03/12/17 09:00 03/20/17 07:36 (Aricept) 5 mg HS PO 03/11/17 21:00 03/20/17 00:31 Potassium Chloride 10 meq 10 meq DAILY PO 03/12/17 09:00 03/20/17 07:36 Potassium Chloride 100 ml @ 50 mls/hr Q2H PRN IV 03/11/17 14:30 03/16/17 08:32 (KCl 20 Meq Premix Inj) 100 ml @ 50 mls/hr Q2H PRN IV 03/11/17 14:30 Potassium Bicarb/ Potassium Chloride 50 meq 50 meq UNSCH PRN PO 03/11/17 14:30 Potassium Chloride 100 ml @ 25 mls/hr UNSCH PRN IV 03/11/17 14:30 03/18/17 05:17 Potassium Chloride 100 ml @ 50 mls/hr Q2H PRN IV 03/11/17 14:30 (Magnesium Sulfate Inj/NS Inj) 100 ml @ 50 mls/hr UNSCH PRN IV 03/11/17 14:30 03/15/17 08:33 Magnesium Oxide 800 mg 800 mg UNSCH PRN PO 03/11/17 14:30 (Magnesium Sulfate Inj/NS Inj) 100 ml @ 50 mls/hr UNSCH PRN IV 03/11/17 14:30 03/15/17 21:37 Potassium Phosphate 2000 mg 2,000 mg Q4H PRN PO 03/11/17 14:30 (Sodium Phosphate Inj/NS 250 ml Inj) 250 ml @ 42 mls/hr UNSCH PRN IV 03/11/17 14:30 03/15/17 08:33 Potassium Phosphate 2000 mg 2,000 mg UNSCH PRN PO/TUBE 03/11/17 14:28 (Potassium Phosphate Inj/NS 250 ml Inj) 260 ml @ 42 mls/hr UNSCH PRN IV 03/11/17 14:28 (Haldol Inj) 2 mg Q6H PRN IV 03/11/17 17:00 Chlorhexidine Gluconate 15 ml 15 ml BID@08,20 MT 03/12/17 20:00 03/20/17 07:37 (Primacor Inj/NS Inj) 100 ml @ 6.07 mls/hr [id number] IV 03/12/17 13:59 03/19/17 10:49 (Heparin Inj) 5,000 units Q12HR SQ 03/13/17 21:00 Hold 03/14/17 09:53 (D50w (Vial) Inj) 50 ml UNSCH PRN IV 03/14/17 08:30 (Glucagon Inj) 1 mg UNSCH PRN OTHER 03/14/17 08:30 (NovoLIN R SUPPLEMENTAL SCALE) 1 Q6H SQ 03/14/17 09:00 (Protonix Inj) 40 mg BID IV PUSH 03/14/17 21:00 03/20/17 07:35 (Reglan Inj) 5 mg Q8HR IV PUSH 03/17/17 09:45 03/20/17 14:06 (Zyvox) 600 mg Q12H PO 03/18/17 06:00 03/20/17 23:55 03/20/17 07:36 (Cordarone) 200 mg DAILY OG-TUBE 03/19/17 09:00 03/20/17 07:36 (Lanoxin) 0.125 mg HS PO 03/19/17 21:00 03/20/17 00:31 Furosemide 80 mg 80 mg Q6H IV PUSH 03/19/17 20:00 03/20/17 14:14 (fentaNYL DRIP) 250 ml @ 0 mls/hr TITRATE IV 03/19/17 20:00 (ZyPREXA ZYDIS ODT) 5 mg Q8HR PO 03/19/17 22:00 03/20/17 14:09 (Haldol Inj) 5 mg Q4H PRN IV PUSH 03/19/17 20:00 (Melatonin) 5 mg HS PO 03/19/17 21:00 03/19/17 20:33 (Mycostatin Powder) 1 applic BID PRN TOPICAL 03/20/17 10:45 Vital Signs / I&O Vital Signs Date Time Temp Pulse Resp B/P Pulse Ox O2 Delivery O2 Flow Rate FiO2 03/20/17 14:00 69 03/20/17 14:00 69 36 118/59 100 129/57 03/20/17 13:40 67 03/20/17 13:40 67 35 117/58 100 132/58 03/20/17 13:20 72 18 118/62 100 137/60 03/20/17 13:20 72 03/20/17 13:00 72 03/20/17 13:00 72 28 123/61 100 160/77 03/20/17 12:40 71 03/20/17 12:40 71 57 122/59 100 161/78 03/20/17 12:20 70 03/20/17 12:20 70 48 119/57 100 116/102 03/20/17 12:00 35 03/20/17 12:00 71 03/20/17 12:00 71 42 122/60 100 156/77 03/20/17 11:00 69 46 119/58 100 156/76 03/20/17 10:40 68 29 107/58 100 128/58 03/20/17 10:20 68 31 121/60 100 137/64 03/20/17 10:18 100 35 03/20/17 10:15 68 03/20/17 10:00 67 03/20/17 10:00 67 29 116/57 100 141/65 03/20/17 09:45 67 03/20/17 09:41 65 21 119/59 100 148/69 03/20/17 09:41 65 03/20/17 09:32 66 30 74/44 100 91/52 03/20/17 09:32 66 03/20/17 09:30 67 03/20/17 09:21 68 33 74/44 100 93/53 03/20/17 09:21 68 03/20/17 09:20 66 32 77/46 100 96/53 03/20/17 09:20 66 03/20/17 09:15 67 03/20/17 09:00 69 23 84/47 100 106/56 03/20/17 09:00 69 03/20/17 08:45 68 03/20/17 08:40 69 24 112/56 100 143/66 03/20/17 08:40 69 03/20/17 08:30 71 03/20/17 08:20 75 18 129/60 100 164/76 03/20/17 08:20 75 03/20/17 08:15 77 03/20/17 08:07 58 27 136/70 100 182/96 03/20/17 08:07 58 03/20/17 08:04 68 21 65/38 100 81/48 03/20/17 08:04 68 03/20/17 08:01 67 20 65/35 100 78/47 03/20/17 08:01 67 03/20/17 08:00 67 03/20/17 08:00 67 24 79/47 100 03/20/17 06:00 66 03/20/17 06:00 66 86/48 111/55 03/20/17 04:00 98.7 62 32 82/46 98 106/54 03/20/17 04:00 35 03/20/17 04:00 62 03/20/17 02:09 99 35 03/20/17 02:00 62 03/20/17 00:00 35 03/20/17 00:00 64 03/20/17 00:00 99.4 64 14 93/51 100 104/41 03/19/17 23:25 100 35 03/19/17 22:00 68 03/19/17 20:01 97 35 03/19/17 20:00 98.1 74 16 132/63 96 152/98 03/19/17 20:00 74 03/19/17 20:00 35 03/19/17 18:00 73 03/19/17 18:00 73 136/65 160/81 I/O 03/19/17 03/19/17 03/19/17 03/20/17 03/20/17 03/20/17 07:00 15:00 23:00 07:00 15:00 23:00 Intake Total 302 ml 419 ml 250 ml 107 ml 564 ml Output Total 230 ml 150 ml 501 ml 551 ml 750 ml Balance 72 ml 269 ml -251 ml -444 ml -186 ml IV Total 168 ml 196 ml 250 ml 107 ml 312 ml Tube Feeding 134 ml 163 ml 132 ml Other 60 ml 120 ml Output Urine Total 150 ml 150 ml 500 ml 550 ml 750 ml Stool Total 80 ml 1 ml 1 ml # Bowel Movements 3 3 Physical Exam GENERAL: Well developed, well nourished. No acute distress. HEENT: Jugular venous pressure is normal. CHEST: Lungs decreased CTA to auscultation bilaterally. Unlabored respiratory effort. CARDIAC: regular rate and rhythm without S3, S4, or murmur. ABDOMEN: Soft, nontender, EXTREMITIES: No clubbing, + cyanotic Laboratory Laboratory Tests Test 03/20/17 04:00 White Blood Count 5.1 TH/MM3 Red Blood Count 2.76 MIL/MM3 Hemoglobin 9.0 GM/DL Hematocrit 26.0 % Mean Corpuscular Volume 94.2 FL Mean Corpuscular Hemoglobin 32.4 PG Mean Corpuscular Hemoglobin 34.4 % Concent Red Cell Distribution Width 15.7 % Platelet Count 173 TH/MM3 Mean Platelet Volume 8.3 FL Assessment and Plan Assessment and Plan AF- good rate control, -heparin for anticoagulation, though fci controversial with anemia NSTEMI- EF 25%, 03/19- no change -continue conservative measures -BB and BUBBA remain relatively contraindicated, on pressors and milrinone -poor/not revasc candidate secondary to comorbid conditions Cardiomyopathy- as above, on milrinone- unable to wean resp - on vent Anemia UTI sepsis- CCM- ID Prognosis is poor with multisystem failure (>50%)- Available Xiao Sharpe MD Mar 20, 2017 17:53
[2017-03-20] MEDS: MILRINONE INJ 20 MG in SODIUM CHLORIDE 0.9% INJ 80 ML IV SCH ×2 (18:13→19:47)
--- NOTE | 2017-03-20 19:40 | HHI.CCPN ---
Subjective Remarks/Hospital Course Patient is an 82-year-old female with past medical history significant for recurrent UTIs, atrial fibrillation, hypertension, dyslipidemia, dementia who was transferred from [place] emergency department after being diagnosed for NSTEMI. She presented with chest pain and EKG showed sinus tachycardia, and troponin was elevated at 4.43. Patient was given aspirin (by EMS) and started on IV heparin infusion. Patient was transferred to [facility] ICU per Dr. Keys's request. Other abnormal labs include BNP of 1330 and potassium of 3. Previous echo showed an ejection fraction of 45%. I evaluated the patient in the ICU. Appears in moderate distress, tachypneic, tachycardic, but denies chest pain (when asked in Kittitian by RN). Patient was seen by Dr. Keys in the ICU, not a candidate for cardiac catheterization on interventions at this time. 2-D echo is pending. UA shows evidence of UTI. Started on cefepime and Diflucan (yeast present in UA). Repeat troponin and lactic acid pending at this time. SUBJ 03/12: I rounded on patient at about 0830 AM, patient was communicative tachypneic but not in severe distress. I was emergently called to the bedside at 10:30 AM patient was unresponsive agonal breathing with blood pressure 60/29 , bradycardic. Emergently started on dopamine. Patient was not protecting airway and I emergently intubated and placed on mechanical ventilation. An emergency left subclavian central line also placed. Levophed was added due to persistent hypotension. Patient appears to be in severe cardiogenic shock. EF 15 -20% down from 40% on 03/04/17. Patient also has moderate to severe MR, moderate to severe TR with moderate to severe pulmonary hypertension. I have discussed with Dr. Keys, she does not think patient is a candidate for any invasive therapy due to advanced age and comorbidities including dementia. I have updated daughter Cata 03/13: Remains intubated sedated critically ill. Remains on 3 pressors (dopamine , Neftali-Synephrine, milrinone). Urine output diminishing. Patient is in multiorgan failure prognosis poor. Family wants to continue full aggressive care palliative care is following. Urine culture showing group D enterococcus and Soledad. Cefepime discontinued Zosyn started along with vancomycin and continue Diflucan 03/14 Patient is sedated with versed and intubated. On Neosyn 200 mics and Milrinone. T: 100.0 last night. Off Dopamine 03/15 Patient remains intubated and sedated with Versed 5mg/hr, Nesoyn down 112 mics and on Milrinone. Afebrile. s/p transfusion 1unit PRBC yesterday. 03/16 No events overnight. Remains sedated with versed and intubated. On Neosyn and Milrinone. 03/17 Patient is intubated and sedated, Neosyn 100mics and Milrinone. Afebrile. 03/18 No events overnight. On Neosyn is down to 37 mics, Milrinone and sedated with Versed. Afebrile. 03/19: no changes. off pressors. remains on inotrops. remains in significant cariogenic shock and volume overload. still on versed. no improvements. off pathway. family wants aggressive care. 03/20: we have made no improvements to cardiogenic shock requiring inotropic therapy. off pathway. I had a long discussion with family and they still want aggressive care, stating "she has been closer to than this, and she always gets better." I talked about need for tracheostomy, and they are agreeable. Objective Vital Signs Date Time Temp Pulse Resp B/P Pulse Ox O2 Delivery O2 Flow Rate FiO2 03/20/17 17:40 68 50 114/59 100 133/70 03/20/17 16:00 35 03/20/17 04:00 98.7 Intake and Output 03/19/17 03/19/17 03/19/17 07:59 15:59 23:59 Intake Total 302 ml 419 ml 250 ml Output Total 230 ml 150 ml 501 ml Balance 72 ml 269 ml -251 ml Result Diagram: 03/20/17 0400 03/19/17 0330 Imaging Last Impressions Abdomen Ultrasound 03/16/17 0000 Signed Impressions: Service Date/Time: Thursday, March 16, 2017 20:35 - CONCLUSION: 1. Right renal cyst and multiple hepatic cysts. 2. Echogenic lesion in liver measures 1.8 cm likely hemangioma. Contrasted MRI may be warranted for confirmation. 3. Cholelithiasis. Evans Augustin MD Chest X-Ray 03/14/17 0600 Signed Impressions: Service Date/Time: Tuesday, March 14, 2017 03:48 - CONCLUSION: 1. Cardiomegaly and findings of vascular congestion without overt failure. Bilateral lower lobe atelectasis versus pneumonia. This is new when compared with the prior exam. Harvey Cheng MD Head CT 03/12/17 0000 Signed Impressions: Service Date/Time: Sunday, March 12, 2017 13:00 - CONCLUSION: 1. Cerebral atrophy and chronic ischemic small vessel vasculopathy. Evans Augustin MD Objective Remarks GENERAL: 82-year-old female acutely and chronically critically ill, on vent SKIN: Warm and dry. HEAD: Atraumatic. EYES: Pupils equal and round. No scleral icterus. ENT: No nasal bleeding or discharge. Orotracheally intubated NECK: Positive JVD CARDIOVASCULAR: Tachycardic. Systolic murmur at the apex. Remains on milrinone, RESPIRATORY: Air entry equal bilaterally. Few basilar crackles GASTROINTESTINAL: Abdomen soft, non-tender, nondistended. NEUROLOGICAL: Intubated sedated. Occasionally opens eyes. Moving all extremities not following commands on sedation A/P Assessment and Plan Assessment: 82yF now in cardiogenic shock with multiorgan system failure. unlikely to improve. family continues to want aggressive care. will continue force diuresis despite kidney injury. continue milrinone now on increasing doses of vasopressors and requiring addition of phenylephrine again. very poor prognosis. very critically ill, remains in shock and multiorgan system dysfunction, off pathway. if we withdraw support, she will . NEURO: Acute encephalopathy Dementia zyprexa 5mg po q8hr for delirium breakthrough haldol 5mg iv q4h prn melatonin 5mg po qhs for improved sleep-wake orientation. Continue home Aricept Encephalopathy most likely secondary to metabolic causes RESP: Acute respiratory failure- persistent, not improving. History of COPD Pulmonary artery hypertension Continue with vent support and keep sat >92% Ventilator bundle. DuoNeb scheduled and when necessary failing daily SBTs for cardiogenic shock, altered mental status. consult general surgery for trach. CV: NSTEMI Cardiogenic shock- persistent, severe Acute systolic heart failure Lactic acidosis Ischemic cardiomyopathy with ejection fraction 15-20% Moderate to severe mitral and tricuspid regurgitation History of A. fib s/p 2.5L bolus 03/11. All IV fluids discontinued due to pulmonary edema Ejection fraction 15-20% , in comparison to echocardiogram on 03/04/17 EF 40% Wean down pressors ( On Neosyn 37 mics, Milrinone) keep MAP>65mmHg Arterial line And flow track monitoring Amiodarone 400mg Q12 started by Dr. Keys, On Digoxin 0.25mg daily, Dig level: 1.4 on 03/14 Lactic acid trending down 1.9 03/14 -- continue lasix 80mg iv q6h. add one-time dose of diuril 500mg iv -- continue milrinone, unable to wean -- restart phenylephrine for end-organ perfusion, clearly she cannot survive without multiple vasopressors. GI: IV Protonix 40mg BID s/p transfusion 1unit PRBC, GI is following. On Glucenra 1.5 On Reglan 5mg IV Q8 : acute kidney injury- secondary to cardiogenic shock Monitor renal function , I/O's, electrolytes replacement per protocol. renal function not improving. not adequately perfused. ID: Severe sepsis- resolved. UTI 03/11 Urine culture growing Soledad and group D enterococcus(VRE) 03/14 Urine cx: C. Albicans Continue abx( Rocephin, Diflucan, Zyvox) monitor for signs of infections ( Fever , WBC) ID is following- Dr. Domínguez HEME: Monitor CBC, CMP, coags s/p [id number] PRBC 03/14 ENDO: SSI for glycemic control Electrolyte replacement protocol PROPH: Bilateral lower extremity SCDs. SQ Heparin on hold for anemia requiring blood transfusion, Protonix LINES: Left subclavian central line, Right Femoral Art line- placed 03/12 CC time 36 min excluding procedures Palliative care following Kevin Rosas MD Mar 20, 2017 19:40
[2017-03-20] MEDS ORDERED: CHLOROTHIAZIDE SOD 500 MG VIAL IV ONE (20:00)
[2017-03-20] MEDS: MELATONIN 5 MG TAB PO SCH (20:48)
[2017-03-20] MEDS ORDERED: TERBUTALINE INJ 1 MG/ML AMP SQ PRN (21:15)
[2017-03-20] MEDS: RESP: ALBUTEROL 2.5 MG/IPRATROPIUM 0.5 MG NEB (PRN) INH (22:23)
[2017-03-20] MEDS: PHENYLEPHRINE INJ 160 MG in DEXTROSE 5% IN WATE 500 ML INJ 484 ML IV SCH ×2 (23:13)
[2017-03-21] VITALS (19 sets, daily range): BP systolic 89–124; BP diastolic 53–69; PULSE 74–90; RESP 14–37; TEMP 97.4–98.8; O2SAT 93–100
[2017-03-21 01:58] LABS: C. DIFF EPI 027 PRESUMPTIVE NEGATIVE (NEGATIVE)
[2017-03-21] MEDS: FUROSEMIDE 100 MG/10 ML VIAL IV PUSH SCH (02:46)
[2017-03-21] MEDS: INSULIN NovoLIN REGULAR SUPPLEMENTAL SCALE SQ SCH ×4 (02:46→21:00)
[2017-03-21] MEDS: CHLORHEXIDINE GLUCONATE 2 % 1 PACK (2 CLOTHS) TOP SCH (04:00)
[2017-03-21] MEDS: OLANZapine ODT 5 MG TAB PO SCH ×3 (05:13→21:02)
[2017-03-21] MEDS: METOCLOPRAMIDE HCL 10 MG/2 ML VIAL IV PUSH SCH ×3 (05:13→21:02)
--- NOTE | 2017-03-21 06:59 | HHI.CCPN ---
Subjective Remarks/Hospital Course Patient is an 82-year-old female with past medical history significant for recurrent UTIs, atrial fibrillation, hypertension, dyslipidemia, dementia who was transferred from [place] emergency department after being diagnosed for NSTEMI. She presented with chest pain and EKG showed sinus tachycardia, and troponin was elevated at 4.43. Patient was given aspirin (by EMS) and started on IV heparin infusion. Patient was transferred to [facility] ICU per Dr. Keys's request. Other abnormal labs include BNP of 1330 and potassium of 3. Previous echo showed an ejection fraction of 45%. I evaluated the patient in the ICU. Appears in moderate distress, tachypneic, tachycardic, but denies chest pain (when asked in [place]ian by RN). Patient was seen by Dr. Keys in the ICU, not a candidate for cardiac catheterization on interventions at this time. 2-D echo is pending. UA shows evidence of UTI. Started on cefepime and Diflucan (yeast present in UA). Repeat troponin and lactic acid pending at this time. SUBJ 03/12: I rounded on patient at about 0830 AM, patient was communicative tachypneic but not in severe distress. I was emergently called to the bedside at 10:30 AM patient was unresponsive agonal breathing with blood pressure 60/29 , bradycardic. Emergently started on dopamine. Patient was not protecting airway and I emergently intubated and placed on mechanical ventilation. An emergency left subclavian central line also placed. Levophed was added due to persistent hypotension. Patient appears to be in severe cardiogenic shock. EF 15 -20% down from 40% on 03/04/17. Patient also has moderate to severe MR, moderate to severe TR with moderate to severe pulmonary hypertension. I have discussed with Dr. Keys, she does not think patient is a candidate for any invasive therapy due to advanced age and comorbidities including dementia. I have updated daughter Cata 03/13: Remains intubated sedated critically ill. Remains on 3 pressors (dopamine , Neftali-Synephrine, milrinone). Urine output diminishing. Patient is in multiorgan failure prognosis poor. Family wants to continue full aggressive care palliative care is following. Urine culture showing group D enterococcus and Soledad. Cefepime discontinued Zosyn started along with vancomycin and continue Diflucan 03/14 Patient is sedated with versed and intubated. On Neosyn 200 mics and Milrinone. T: 100.0 last night. Off Dopamine 03/15 Patient remains intubated and sedated with Versed 5mg/hr, Nesoyn down 112 mics and on Milrinone. Afebrile. s/p transfusion 1unit PRBC yesterday. 03/16 No events overnight. Remains sedated with versed and intubated. On Neosyn and Milrinone. 03/17 Patient is intubated and sedated, Neosyn 100mics and Milrinone. Afebrile. 03/18 No events overnight. On Neosyn is down to 37 mics, Milrinone and sedated with Versed. Afebrile. 03/19: no changes. off pressors. remains on inotrops. remains in significant cariogenic shock and volume overload. still on versed. no improvements. off pathway. family wants aggressive care. 03/20: we have made no improvements to cardiogenic shock requiring inotropic therapy. off pathway. I had a long discussion with family and they still want aggressive care, stating "she has been closer to than this, and she always gets better." I talked about need for tracheostomy, and they are agreeable. 03/21 Patient remains intubated off sedation. Afebrile. For possible trach today. On Neosyn 30 mics and Milrinone. Objective Vital Signs Date Time Temp Pulse Resp B/P Pulse Ox O2 Delivery O2 Flow Rate FiO2 03/21/17 06:00 82 03/21/17 04:07 100 35 03/21/17 04:00 98.4 28 124/69 Arterial Line Intake and Output 03/20/17 03/20/17 03/20/17 07:59 15:59 23:59 Intake Total 107 ml 564 ml 339 ml Output Total 551 ml 750 ml 751 ml Balance -444 ml -186 ml -412 ml Result Diagram: 03/20/17 0400 03/19/17 0330 Other Results Laboratory Tests Test 03/21/17 00:01 Stool C. difficile Toxin (PCR) NEGATIVE Stl C. difficile Toxin PRESUMPTIVE Epiderm 027 NEGATIVE Imaging Last Impressions Chest X-Ray 03/17/17 0000 Signed Impressions: Service Date/Time: Friday, March 17, 2017 09:37 - CONCLUSION: 1. Persistent parenchymal changes left base 2. Support apparatus in good position without pneumothorax. Jj Gee MD FACR Abdomen Ultrasound 03/16/17 0000 Signed Impressions: Service Date/Time: Thursday, March 16, 2017 20:35 - CONCLUSION: 1. Right renal cyst and multiple hepatic cysts. 2. Echogenic lesion in liver measures 1.8 cm likely hemangioma. Contrasted MRI may be warranted for confirmation. 3. Cholelithiasis. Evans Augustin MD Head CT 03/12/17 0000 Signed Impressions: Service Date/Time: Sunday, March 12, 2017 13:00 - CONCLUSION: 1. Cerebral atrophy and chronic ischemic small vessel vasculopathy. Evans Augustin MD Objective Remarks GENERAL: 82-year-old female acutely and chronically critically ill, on vent SKIN: Warm and dry. HEAD: Atraumatic. EYES: Pupils equal and round. No scleral icterus. ENT: No nasal bleeding or discharge. Orotracheally intubated NECK: Positive JVD CARDIOVASCULAR: Tachycardic. Systolic murmur at the apex. Remains on milrinone, RESPIRATORY: Air entry equal bilaterally. Few basilar crackles GASTROINTESTINAL: Abdomen soft, non-tender, nondistended. NEUROLOGICAL: Intubated sedated. Occasionally opens eyes. Moving all extremities not following commands on sedation A/P Assessment and Plan Assessment: 82yF now in cardiogenic shock with multiorgan system failure. unlikely to improve. family continues to want aggressive care. will continue force diuresis despite kidney injury. continue milrinone now on increasing doses of vasopressors and requiring addition of phenylephrine again. very poor prognosis. very critically ill, remains in shock and multiorgan system dysfunction, off pathway. if we withdraw support, she will . NEURO: Acute encephalopathy Dementia Zyprexa 5mg po q8hr for delirium breakthrough haldol 5mg iv q4h prn melatonin 5mg po qhs for improved sleep-wake orientation. Continue home Aricept Encephalopathy most likely secondary to metabolic causes RESP: Acute respiratory failure- persistent, not improving. History of COPD Pulmonary artery hypertension Continue with vent support and keep sat >92% Ventilator bundle. DuoNeb scheduled and when necessary SBT trials as carley General surgery consulted- for possible trach today CV: NSTEMI Cardiogenic shock- persistent, severe Acute systolic heart failure Lactic acidosis Ischemic cardiomyopathy with ejection fraction 15-20% Moderate to severe mitral and tricuspid regurgitation History of A. fib s/p 2.5L bolus 03/11. All IV fluids discontinued due to pulmonary edema Ejection fraction 15-20% , in comparison to echocardiogram on 03/04/17 EF 40% Wean down pressors ( On Neosyn 30 mics, Milrinone) keep MAP>65mmHg Arterial line And flow track monitoring Amiodarone 200mg daily started by Dr. Keys, On Digoxin 0.125mg daily, Dig level: 1.4 on 03/14, recheck level today Lactic acid trending down 1.9 03/14 GI: IV Protonix 40mg BID s/p transfusion 1unit PRBC, GI is following. NPO for possible trach today On Reglan 5mg IV Q8 : acute kidney injury- secondary to cardiogenic shock Monitor renal function , I/O's, electrolytes replacement per protocol. Check BMP today, d/c Lasix ID: Severe sepsis- resolved. UTI 03/11 Urine culture growing Soledad and group D enterococcus(VRE) 03/14 Urine cx: C. Albicans Off abx- monitor for signs of infections ( Fever, WBC) ID is following- Dr. Domínguez HEME: Monitor CBC, CMP, coags s/p [id number] PRBC 03/14 ENDO: SSI for glycemic control Electrolyte replacement protocol PROPH: Bilateral lower extremity SCDs. SQ Heparin on hold for anemia requiring blood transfusion, Protonix LINES: Left subclavian central line, Right Femoral Art line- placed 03/12 CC time 30 min excluding procedures Palliative care following Follow up on labs today Deepthi Griffiths MD Mar 21, 2017 06:59
[2017-03-21] MEDS: CHLORHEXIDINE 0.12% (ORAL KIT) 15 ML CUP MT SCH ×2 (08:47→21:01)
[2017-03-21] MEDS: PANTOPRAZOLE SODIUM 40 MG VIAL IV PUSH SCH ×2 (08:48→21:01)
[2017-03-21] MEDS: AMIODARONE 200 MG TAB OG-TUBE SCH (08:48)
[2017-03-21] MEDS: ASPIRIN 81 MG CHEW TAB CHEW SCH (08:48)
[2017-03-21] MEDS: DOCUSATE SODIUM 50 MG/SENNA 8.6 MG TAB PO SCH ×2 (08:48→21:02)
--- NOTE | 2017-03-21 08:53 | MB ---
cc: HARMAN COBOS DATE OF CONSULTATION 03/20/[address] Faustino Addison REASON FOR CONSULTATION Consideration of bedside tracheostomy HISTORY OF PRESENT ILLNESS The patient is an 82-year-old female who was admitted to [facility] on 03/11/2017. The patient was diagnosed with an NSTEMI after presenting with chest pain at the [place] emergency department. Unfortunately, the patient developed respiratory failure and required intubation. This was secondary to cardiac issues as well. The patient has unfortunately developed severe heart failure and continues to require respiratory support. After multiple family meetings, the family would like to continue to pursue aggressive care including life support and prolonged ventilation. This patient will require a tracheostomy for prolonged ventilatory support. General surgery is consulted for consideration of a bedside tracheostomy. REVIEW OF SYSTEMS Unable to obtain, the patient is having altered mental status. PAST MEDICAL HISTORY 1. Severe congestive heart failure and dysfunction secondary to NSTEMI as above. 2. CAD 3. Hypertension 4. Atrial fibrillation 5. Recurrent UTI 6. Dyslipidemia 7. Acute respiratory failure 8. Acute encephalopathy 9. Acute kidney injury 10. Sepsis and urinary tract infection 11. Anemia PAST SURGICAL HISTORY No previous neck or tracheostomy type procedures. ALLERGIES ASPIRIN, ANTIPSYCHOTICS MEDICATIONS 1. Terbutaline 2. Phenylephrine 3. Nystatin 4. Zyprexa 5. Digoxin 6. Melatonin 7. Lasix 8. Zyvox 9. Cordarone 10. Aspirin 81 mg SOCIAL HISTORY The patient has a history of smoking remotely. FAMILY HISTORY Noncontributory PHYSICAL EXAMINATION VITAL SIGNS: Blood pressure 114/59, heart rate 68, respiratory rate 50, pulse ox 100%. GENERAL: The patient is an acute and chronically ill elderly female on the ventilator in the intensive Care Unit unresponsive. HEAD: Normocephalic, atraumatic. EYES: Pupils round, reactive bilaterally. Sclerae is anicteric. Oral cavity shows a tracheal tube. NECK: Supple. There is mild JVD. Trachea is midline. There is no previous scars or tracheal deviation. No thyromegaly or masses. LUNGS: Coarse bilaterally. HEART: Regular rate. ABDOMEN: Soft, nondistended. EXTREMITIES: Acute edema. NEUROLOGIC: GCS is 3. Patient is unresponsive. LABORATORY FINDINGS Hemoglobin 9.0, coagulation 8, PTT is 53. ASSESSMENT AND PLAN Patient is an 82-year-old female requiring a tracheostomy for continued ongoing life support. The patient is an acceptable candidate based on her anatomy and respiratory support for bedside percutaneous tracheostomy. Consent has already been obtained. We will make this patient n.p.o. after midnight with tube feeds and plan for possible bedside tracheostomy on 03/21/2017 based on scheduling availability of the systems project manager and equipment. Thank you very much for this consultation. MD LIZZ Kumar/ЮЛИЯ /11:08 PM /8:27 AM MTDShirley
[2017-03-21] MEDS: MILRINONE INJ 20 MG in SODIUM CHLORIDE 0.9% INJ 80 ML IV SCH (09:40)
[2017-03-21 09:41] LABS: AUTOMATED NEUTROPHIL # 7.3 TH/MM3 (1.8-7.7); EOSINOPHIL % 0.1 % (0.0-4.0); HEMATOCRIT 30.7 % (35.0-46.0); HEMO FLAGS DIFF FINAL; LYMPH % 8.5 % (9.0-44.0); LYMPHOCYTE # 0.7 TH/MM3 (1.0-4.8); MEAN CELL VOLUME 95.5 FL (80.0-100.0); MEAN CORPUSCULAR HEMOGLOBIN 31.5 PG (27.0-34.0); MONO % 4.4 % (0.0-8.0); PLATELET COUNT 198 TH/MM3 (150-450); RED BLOOD COUNT 3.22 MIL/MM3 (4.00-5.30); WHITE BLOOD COUNT 8.4 TH/MM3 (4.0-11.0)
[2017-03-21 09:56] LABS: APTT (PATIENT) 24.3 SEC (24.3-30.1); PROTHROMBIN TIME - PATIENT 11.3 SEC (9.8-11.6)
[2017-03-21 10:06] LABS: BICARBONATE 25.6 MEQ/L (21.0-32.0)
[2017-03-21 10:08] LABS: POTASSIUM 2.7 MEQ/L (3.5-5.1)
[2017-03-21 10:36] LABS: DIGOXIN 2.7 NG/ML (0.8-2.0)
[2017-03-21] MEDS: POTASSIUM CHLOR 40 MEQ PREMIX 100 ML IV PRN ×2 (10:37→10:38)
[2017-03-21] MEDS ORDERED: MIDAZOLAM HCL 5 MG/ML VIAL (1 ML) ONE (12:56)
[2017-03-21] MEDS ORDERED: VECURONIUM BROMIDE 10 MG VIAL IV PUSH ONE (13:00)
[2017-03-21] MEDS ORDERED: MIDAZOLAM HCL 5 MG/ML VIAL (1 ML) IV PUSH ONE (13:00)
[2017-03-21] MEDS ORDERED: fentaNYL CITRATE 250 MCG/5 ML AMP IV PUSH ONE (13:00)
[2017-03-21] MEDS ORDERED: PROPOFOL 200 MG/20 ML AMP IV ONE (13:34)
--- NOTE | 2017-03-21 13:43 | HHI.GIFU ---
Subjective Remarks Pt on vent, s/p trach. (Linda Bowman) Objective Vitals I&O Vital Signs Date Time Temp Pulse Resp B/P Pulse Ox O2 Delivery O2 Flow Rate FiO2 03/21/17 12:04 100 35 03/21/17 10:00 83 03/21/17 08:01 100 35 03/21/17 08:00 98.4 90 37 115/56 100 03/21/17 08:00 87 03/21/17 08:00 35 03/21/17 06:00 82 03/21/17 04:07 100 35 03/21/17 04:00 98.4 87 28 124/69 100 Arterial Line 03/21/17 04:00 87 03/21/17 04:00 35 03/21/17 01:11 97 35 03/21/17 00:00 98.8 82 37 106/55 97 03/21/17 00:00 35 03/20/17 22:20 100 35 03/20/17 20:00 98.8 72 16 111/57 100 03/20/17 20:00 35 03/20/17 17:40 68 50 114/59 100 133/70 03/20/17 17:40 68 03/20/17 17:20 67 03/20/17 17:20 67 30 110/55 100 133/68 03/20/17 17:00 68 43 110/56 100 135/68 03/20/17 17:00 68 03/20/17 16:40 70 03/20/17 16:40 70 42 128/62 100 135/73 03/20/17 16:20 68 03/20/17 16:20 68 50 124/60 100 145/72 03/20/17 16:00 35 03/20/17 16:00 69 03/20/17 16:00 69 56 126/60 100 110/88 03/20/17 15:40 68 51 123/57 100 145/65 03/20/17 15:20 68 53 123/60 100 147/64 03/20/17 15:00 67 55 116/58 100 140/60 03/20/17 14:40 66 21 117/57 100 128/59 03/20/17 14:20 69 33 115/59 100 127/61 03/20/17 14:00 69 03/20/17 14:00 69 36 118/59 100 129/57 03/20/17 14:00 69 36 118/59 100 129/57 I/O 03/20/17 03/20/17 03/20/17 03/21/17 03/21/17 03/21/17 07:00 15:00 23:00 07:00 15:00 23:00 Intake Total 107 ml 564 ml 339 ml 144 ml Output Total 551 ml 750 ml 751 ml 1152 ml Balance -444 ml -186 ml -412 ml -1008 ml IV Total 107 ml 312 ml 219 ml 104 ml Tube Feeding 132 ml 120 ml 40 ml Other 120 ml Output Urine Total 550 ml 750 ml 750 ml 1150 ml Stool Total 1 ml 1 ml 2 ml # Bowel Movements 3 2 Laboratory Laboratory Tests Test 03/21/17 03/21/17 00:01 08:35 Stool C. difficile Toxin (PCR) NEGATIVE Stl C. difficile Toxin PRESUMPTIVE Epiderm 027 NEGATIVE White Blood Count 8.4 Red Blood Count 3.22 Hemoglobin 10.2 Hematocrit 30.7 Mean Corpuscular Volume 95.5 Mean Corpuscular Hemoglobin 31.5 Mean Corpuscular Hemoglobin 33.0 Concent Red Cell Distribution Width 16.0 Platelet Count 198 Mean Platelet Volume 7.8 Neutrophils (%) (Auto) 87.0 Lymphocytes (%) (Auto) 8.5 Monocytes (%) (Auto) 4.4 Eosinophils (%) (Auto) 0.1 Basophils (%) (Auto) 0.0 Neutrophils # (Auto) 7.3 Lymphocytes # (Auto) 0.7 Monocytes # (Auto) 0.4 Eosinophils # (Auto) 0.0 Basophils # (Auto) 0.0 CBC Comment DIFF FINAL Differential Comment Prothrombin Time 11.3 Prothromb Time International 1.0 Ratio Activated Partial 24.3 Thromboplast Time Sodium Level 140 Potassium Level 2.7 Chloride Level 105 Carbon Dioxide Level 25.6 Anion Gap 9 Blood Urea Nitrogen 44 Creatinine 1.19 Estimat Glomerular Filtration 43 Rate Random Glucose 94 Calcium Level 8.5 Digoxin Level 2.7 Date/Time Procedure Status Source Growth 03/21/17 00:01 Stool Occult Blood (DANIAL) - Final Complete Stool Stool HEMOCCULT POSITIVE Imaging Last Impressions Chest X-Ray 03/17/17 0000 Signed Impressions: Service Date/Time: Friday, March 17, 2017 09:37 - CONCLUSION: 1. Persistent parenchymal changes left base 2. Support apparatus in good position without pneumothorax. Jj Gee MD FACR Abdomen Ultrasound 03/16/17 0000 Signed Impressions: Service Date/Time: Thursday, March 16, 2017 20:35 - CONCLUSION: 1. Right renal cyst and multiple hepatic cysts. 2. Echogenic lesion in liver measures 1.8 cm likely hemangioma. Contrasted MRI may be warranted for confirmation. 3. Cholelithiasis. Evans Augustin MD Head CT 03/12/17 0000 Signed Impressions: Service Date/Time: Sunday, March 12, 2017 13:00 - CONCLUSION: 1. Cerebral atrophy and chronic ischemic small vessel vasculopathy. Evans Augustin MD Physical Exam HEENT: Normocephalic; atraumatic; no jaundice. trach to vent CHEST: CTA CARDIAC: RRR ABDOMEN: Soft, nondistended, nontender; no hepatosplenomegaly; bowel sounds x 4 quadrants. EXTREMITIES: Generalized edema SKIN: Normal; no rash; no jaundice. ACTIVATED SLUDGE OPERATOR: vent. (Linda Bowman) Assessment and Plan Plan ASSESSMENT: - dysphagia - need for snf mech ventilation. will do PEG. d/w nurse. - Anemia with drop in Hgb. No obvious GI bleeding. No vomiting. No rectal bleeding. HH stable She was noted to have an HH of 9.9/30.3 on admission S/P transfusion 03/14. Daughter, Cata Yin , She was on heparin here, until today when it was placed on hold. Protonix BID dosing. Hemoccult stool negative. Monitor HH, tx as necessary. Consider repeat EGD if active bleeding/drop in hgb. Will try to obtain records from recent hospitalization for gi bleeding. - NSTEMI, Atrial fibrillation, CMP. Cardiology following, not a candidate for revascularization. Medical management. - Respiratory failure. Vent per [facility]. - Sepsis, UTI. Urine cx on admission with seth albicans and enterococcus faecium. Zyvox, Zosyn BCx no growth 2 days, sputum culture shows moderate growth of normal respiratory ashwin at 24 hours, urine culture shows seth albicans and enterococcus faecium Vre. - [place] with electrolyte abnormalities. Per [facility] - Dementia. Per [facility] PLAN - EGD with PEG tube placment today - obtain consents - pt is NPO - pt on clindamycin - Cont. Protonix 40mg IV BID - Monitor HH - Transfuse as necessary - Monitor labs - Supportive care - Further recommendations to follow Patient seen and examined by Dr. Smith and myself and this note is written on his behalf (Linda Bowman) Physician Comments Patient seen and examined Agree with above Continue with current supportive care Monitor labs Plan for EGD PEG placement today (Kadeem Smith MD) Linda Bowman Mar 21, 2017 13:43 Kadeem Smith MD Mar 21, 2017 15:36 on his behalf Linda Bowman Mar 21, 2017 13:43
--- NOTE | 2017-03-21 14:29 | RADRPT ---
EXAM DATE/TIME: 03/21/2017 13:21 [place] COMPARISON: CHEST SINGLE AP, March 17, 2017, 9:37. INDICATIONS : Post tracheostomy tube placement MEDICAL HISTORY : Hypertension. SURGICAL HISTORY : None. ENCOUNTER: Subsequent ACUITY: 1 week PAIN SCORE: Non-responsive. LOCATION: Bilateral chest FINDINGS: Tracheostomy tube is present in satisfactory position. Left subclavian line is present with tip overl apping the expected region of the SVC. There is improvement in aeration of the lungs residual bibasil ar opacities remaining and there is also mild pulmonary edema. CONCLUSION: Improvement in the aeration of the lungs. Pelon Coelho MD on March 21, 2017 at 14:26 Board Certified Radiologist. This report was verified electronically.
--- NOTE | 2017-03-21 15:30 | HHI.HCPN ---
Reason for visit a. To assist with evaluation and management of symptoms including: Shortness of breath and debility. b. To assist medical decision maker(s) with: better understanding of current medical conditions; weighing benefits/burdens of medical treatment options; making medical treatment decisions. . Subjective/Interval History Mrs. Franco is a 82-year-old female with a past medical history of dementia originally diagnosed in 2013, recurrent UTIs, urinary retention, hypertension and atrial fibrillation. Patient presented to ED on 03/11/17 via EMS for evaluation of chest pain. Patient was transfer to [facility] for further management of non-STEMI, not a candidate for any invasive procedures. Echocardiogram showing EF of 20% from the echo on 03/04/17 showing EF of 45%. In addition, moderate to severe mitral valve regurgitation. Clinical course complicated by severe cardiac shock, intubation and mechanical ventilation in addition to vasopressors. Palliative care has been consulted for further clarifications of goals of care given patient's worsening clinical condition and poor prognosis. Patient seen in ICU. Underwent tracheostomy placement this morning. Remains on vent support, 35% FiO2. Cardiogenic shock, Currently on Neftali-Synephrine and Primacor drip. A febrile. Chest x-ray today showing improvement in the aeration of the lungs. Hemoglobin stable at 10.2, platelet 198. Potassium 2.7 , BUN/creatinine 40/1.19. Plan for EGD with PEG tube placement this afternoon. Telephone call to patient's daughter Cata Yin. Left message in voicemail. Goals of care clear at this time, daughter electing to continue with aggressive care to include full code, tracheostomy and PEG tube placement. Likely to discharge to acute rehabilitation. Case discussed with bedside RN Maurice. . Family/friend interactions See interval note. . Advance Directives Living Will: Copy in medical record Health Care Surrogate: Copy in medical record Durable Power of Agricultural Extension Specialist: Copy in medical record Advance Directive Specifics Date completed: 03/28/2011 Health Care Surrogate(s): IRAM Cata Yin. . Documented care wishes: Living will directing to withhold withdrawal treatment under the following circumstances: Condition that is irreversible or incurable without the administration of life sustaining treatments, expected to result in within a relative short period of time or in the setting of coma or persistent vegetative state. . Significant change in goals: Goals of care remain unchanged. Aggressive management. . Objective Vital Signs Date Time Temp Pulse Resp B/P Pulse Ox O2 Delivery O2 Flow Rate FiO2 03/21/17 13:00 100 100 03/21/17 12:04 100 35 03/21/17 12:00 80 03/21/17 10:00 83 03/21/17 08:01 100 35 03/21/17 08:00 98.4 90 37 115/56 100 03/21/17 08:00 87 03/21/17 08:00 35 03/21/17 06:00 82 03/21/17 04:07 100 35 03/21/17 04:00 98.4 87 28 124/69 100 Arterial Line 03/21/17 04:00 87 03/21/17 04:00 35 03/21/17 01:11 97 35 03/21/17 00:00 98.8 82 37 106/55 97 03/21/17 00:00 35 03/20/17 22:20 100 35 03/20/17 20:00 98.8 72 16 111/57 100 03/20/17 20:00 35 03/20/17 17:40 68 50 114/59 100 133/70 03/20/17 17:40 68 03/20/17 17:20 67 03/20/17 17:20 67 30 110/55 100 133/68 03/20/17 17:00 68 43 110/56 100 135/68 03/20/17 17:00 68 03/20/17 16:40 70 03/20/17 16:40 70 42 128/62 100 135/73 03/20/17 16:20 68 03/20/17 16:20 68 50 124/60 100 145/72 03/20/17 16:00 35 03/20/17 16:00 69 03/20/17 16:00 69 56 126/60 100 110/88 03/20/17 15:40 68 51 123/57 100 145/65 03/20/17 15:20 68 53 123/60 100 147/64 Intake & Output 03/21/17 03/21/17 07:00 19:00 Intake Total 483 ml Output Total 1903 ml Balance -1420 ml IV Total 323 ml Tube Feeding 160 ml Output Urine Total 1900 ml Stool Total 3 ml # Bowel Movements 2 Physical Exam CONSTITUTIONAL/GENERAL: This is an elderly, frail female who is mechanical ventilated via tracheostomy. TUBES/LINES/DRAINS: PIV's, central line to left upper chest, SCDs, Abrams catheter. Tracheostomy. SKIN: No jaundice, rashes, or lesions. Ecchymoses on upper extremities. No wounds seen anteriorly. Not diaphoretic. HEAD: Atraumatic. Normocephalic. EYES: Pupils equal and round and reactive, sluggish. No scleral icterus. No injection or drainage. ENT: Unable to assess hearing secondary to clinical condition. Nose without bleeding or purulent drainage. Moist oral mucosa. NECK: Trachea midline. Supple. CARDIOVASCULAR: regular rate and rhythm, systolic murmur. Faint peripheral pulses. Mild mottling of fingers. RESPIRATORY/CHEST: mechanical ventilation via tracheostomy. Inspiratory and expiratory crackles bilaterally. GASTROINTESTINAL: Abdomen soft, nondistended. Bowel sounds present. GENITOURINARY: Without palpable bladder distension. Abrams catheter in place. MUSCULOSKELETAL: Mild mottling of fingers noted. Pitting edema all of all 4 extremities. NEUROLOGICAL: Unresponsive to verbal or tactile stimuli. No purposeful movement noted. PSYCHIATRIC: Unable to evaluate secondary to clinical condition. . Diagnostic Tests Laboratory Laboratory Tests Test 03/19/17 03/20/17 03/21/17 03/21/17 03:30 04:00 00:01 08:35 White Blood Count 5.8 TH/MM3 5.1 TH/MM3 8.4 TH/MM3 (4.0-11.0) (4.0-11.0) (4.0-11.0) Red Blood Count 3.08 MIL/MM3 2.76 MIL/MM3 3.22 MIL/MM3 (4.00-5.30) (4.00-5.30) (4.00-5.30) Hemoglobin 9.7 GM/DL 9.0 GM/DL 10.2 GM/DL (11.6-15.3) (11.6-15.3) (11.6-15.3) Hematocrit 29.6 % 26.0 % 30.7 % (35.0-46.0) (35.0-46.0) (35.0-46.0) Mean Corpuscular Volume 96.1 FL 94.2 FL 95.5 FL (80.0-100.0) (80.0-100.0) (80.0-100.0) Mean Corpuscular Hemoglobin 31.6 PG 32.4 PG 31.5 PG (27.0-34.0) (27.0-34.0) (27.0-34.0) Mean Corpuscular Hemoglobin 32.9 % 34.4 % 33.0 % Concent (32.0-36.0) (32.0-36.0) (32.0-36.0) Red Cell Distribution Width 15.7 % 15.7 % 16.0 % (11.6-17.2) (11.6-17.2) (11.6-17.2) Platelet Count 293 TH/MM3 173 TH/MM3 198 TH/MM3 (150-450) (150-450) (150-450) Mean Platelet Volume 8.0 FL 8.3 FL 7.8 FL (7.0-11.0) (7.0-11.0) (7.0-11.0) Neutrophils (%) (Auto) 86.2 % 87.0 % (16.0-70.0) (16.0-70.0) Lymphocytes (%) (Auto) 9.0 % 8.5 % (9.0-44.0) (9.0-44.0) Monocytes (%) (Auto) 4.8 % (0.0-8.0) 4.4 % (0.0-8.0) Eosinophils (%) (Auto) 0.0 % (0.0-4.0) 0.1 % (0.0-4.0) Basophils (%) (Auto) 0.0 % (0.0-2.0) 0.0 % (0.0-2.0) Neutrophils # (Auto) 5.0 TH/MM3 7.3 TH/MM3 (1.8-7.7) (1.8-7.7) Lymphocytes # (Auto) 0.5 TH/MM3 0.7 TH/MM3 (1.0-4.8) (1.0-4.8) Monocytes # (Auto) 0.3 TH/MM3 0.4 TH/MM3 (0-0.9) (0-0.9) Eosinophils # (Auto) 0.0 TH/MM3 0.0 TH/MM3 (0-0.4) (0-0.4) Basophils # (Auto) 0.0 TH/MM3 0.0 TH/MM3 (0-0.2) (0-0.2) CBC Comment DIFF FINAL DIFF FINAL Differential Comment Sodium Level 142 MEQ/L 140 MEQ/L (136-145) (136-145) Potassium Level 3.5 MEQ/L 2.7 MEQ/L (3.5-5.1) (3.5-5.1) Chloride Level 110 MEQ/L 105 MEQ/L (98-107) (98-107) Carbon Dioxide Level 22.6 MEQ/L 25.6 MEQ/L (21.0-32.0) (21.0-32.0) Anion Gap 9 MEQ/L (5-15) 9 MEQ/L (5-15) Blood Urea Nitrogen 37 MG/DL (7-18) 44 MG/DL (7-18) Creatinine 1.34 MG/DL 1.19 MG/DL (0.50-1.00) (0.50-1.00) Estimat Glomerular Filtration 38 ML/MIN (>89) 43 ML/MIN (>89) Rate Random Glucose 105 MG/DL 94 MG/DL (74-106) (74-106) Calcium Level 8.1 MG/DL 8.5 MG/DL (8.5-10.1) (8.5-10.1) Phosphorus Level 3.3 MG/DL (2.5-4.9) Magnesium Level 2.5 MG/DL (1.5-2.5) Stool C. difficile Toxin (PCR) NEGATIVE (NEGATIVE) Stl C. difficile Toxin PRESUMPTIVE Epiderm 027 NEGATIVE (NEGATIVE) Prothrombin Time 11.3 SEC (9.8-11.6) Prothromb Time International 1.0 RATIO Ratio Activated Partial 24.3 SEC Thromboplast Time (24.3-30.1) Digoxin Level 2.7 NG/ML (0.8-2.0) Result Diagram: 03/21/17 0835 03/21/17 0835 Microbiology Microbiology Date/Time Procedure Status Source Growth 03/21/17 00:01 Stool Occult Blood (DANIAL) - Final Complete Stool Stool HEMOCCULT POSITIVE Procedures * 03/21/17 -tracheostomy * 03/21/17 -removal of ET tube * 03/21/17 -PEG tube placement * 03/12/17 -intubation * 03/12/17 -central line placement . Assessment and Plan Disease Oriented Problem List: (1) Severe sepsis (2) Lactic acidosis (3) Encephalopathy acute (4) Urinary tract infection (5) NSTEMI (non-ST elevation myocardial infarction) (6) CHF (congestive heart failure) (7) Dementia (8) Atrial fibrillation Symptom Scale: (1) Shortness of breath 0-10 Scale: Unable to quantify Comment: Remains orally intubated on mechanical ventilation. (2) Debility 0-10 Scale: Unable to quantify Comment: Progressive, worsening since December. Pertinent Non-Medical Issues Psychosocial: . Originally from [place]. has 2 daughters. Spiritual: Quaker oliva. Legal: Advance directives completed. Ethical issues impacting care: No issues have been identified. . Important Contacts Daughter Cata Yin & Family friend Kristen Jolly [phone]. . Prognosis Mrs. Franco is a 82-year-old female with a past medical history of dementia originally diagnosed in 2013, recurrent UTIs, urinary retention, hypertension and atrial fibrillation. Patient with recent prolonged hospitalizations since December 2016. Admitted secondary to non-STEMI. Clinical course complicated by septic/cardiogenic shock, acute respiratory failure, lactic acidosis, congestive heart failure. Very poor prognosis for surviving this hospitalization given her multiple chronic comorbidities, recent prolonged acute hospitalizations, acute events, profound physical deconditioning and advanced age. . Code Status: Full Code Plan * CODE STATUS: Daughter electing for patient to remain FULL code. Risks and limitations of CPR were discussed in great detail with daughter given patient's worsening clinical condition. * HEALTHCARE DECISION-MAKING: Patient unable to participate in medical decision- making secondary to clinical condition, intubated on mechanical ventilation. Durable power of contracts attorney for healthcare obtained, daughter Cata Yin is designated healthcare surrogate. * GOALS OF CARE: Daughter electing to continue with aggressive management to include full code, tracheostomy and PEG tube placement. Daughter Cata verbalized wishing to do "everything humanly possible to maintain my mother alive". Risks for further complications, clinical decline and has been previously discussed with daughter given acute events, multiple acute comorbidities, multiple recent acute hospitalizations, profound physical deconditioning and advanced age. Daughter verbalized understanding. Likely to discharge to acute rehabilitation. * SYMPTOMS: = Shortness of breath, remains mechanically ventilated via tracheostomy. = Debility, progressive and worsened since December 2016. Likely to discharge to acute rehabilitation. * Case has been discussed with bedside RN Maurice. * Palliative care contact information has been provided to patient's daughters Cata. * Palliative care will continue to follow-up as needed for further clarifications of goals of care as patient's clinical course continue to evolve. Goals are clear at this time; aggressive management. . Time Spent Total Floor Time (mins): 24 (Total time to include review medical records, physical exam, attempt at communicating with patient's daughter Cata via telephone and case discussion with bedside RN.) >50% Counseling/Coord of Care: Yes Attestation To help prompt me to consider important information that might be impacting today's encounter and assessment, information from prior notes written by myself or my colleagues may have been "brought forward" into today's note. My signature on this note, however, is an attestation that I personally performed the exam, history, and/or decision-making noted today, and, unless otherwise indicated, the interactions with patient, family, and staff as well as the review of records all occurred today. I also attest that the listed assessment and stated plan reflect my best clinical judgment today based on the combination of historical information, prior notes, and today's exam/ interactions. When time spent is documented, it refers only to time spent today by the signer, or if indicated, combined time spent today by collaborating physician/nurse practitioner. Amy Turk Mar 21, 2017 15:30
--- NOTE | 2017-03-21 15:38 | PD.PROCEDR ---
GI Procedure PROCEDURE PERFORMED EGD with PEG placement INDICATION FOR PROCEDURE Respiratory failure, dysphagia PROCEDURE: The procedure, risks and benefits were discussed with Ms. Franco and informed consent was obtained. Anesthesia sedated her with Diprivan. She was placed in the left lateral decubitus position. EGD: The Pentax videoscope was introduced through the oropharynx and advanced to the second portion of the duodenum under direct visualization. Retroflexion was performed in the stomach. FINDINGS: The esophagus this was normal The stomach this was normal The duodenum this was normal Following the evaluation of the stomach and the duodenum the stomach was insufflated with air and the area of PEG placement was identified through indentation and transillumination the area was prepped and draped in usual fashion 5 cc of lidocaine were injected locally a small incision was made then an Angiocath was passed into the stomach through which a guidewire was passed this was retrieved with the scope into that a PEG tube was attached and pulled into place and thereafter secured in usual fashion The patient tolerated procedure well and there are no immediate complications ESTIMATED BLOOD LOSS: None SPECIMENS REMOVED: None COMPLICATIONS: None IMPRESSION: Normal EGD Successful PEG placement PLAN: 1. May use PEG tube for medications today 2. May start feeding tomorrow 3. May obtain nutritional consult for tube feeding 4. Flush tube with 50 cc of water every 4-6 hours 5. Always flush tube after feedings 6. Apply abdominal binder as necessary 7. Clamp G-tube after use and flush. Kadeem Smith MD Mar 21, 2017 15:38
[2017-03-21 16:47] LABS: BLOOD GAS BASE EXCESS -0.7 mmol/L (-2-2); BLOOD GAS CARBOXYHEMOGLOBIN 1.3 % (0-4); BLOOD GAS HCO3 24 mmol/L (22-26); BLOOD GAS METHEMOGLOBIN 0.8 % (0-2); BLOOD GAS O2 HGB SATURATION 97 % (90-100); BLOOD GAS OXYGEN CONTENT 14.5 Vol % (12.0-20.0); BLOOD GAS PCO2 39 mmHg (38-42); BLOOD GAS PO2 167 mmHg (61-120); BLOOD GAS TOTAL HGB 10.3 G/DL (12.0-16.0); TEMP CORR TO 98.6
[2017-03-21 16:48] LABS: CRITICAL VALUE NO; DRAW SITE LT RADIAL; FIO2 40 %; NUMBER OF ARTERIAL PUNCTURES 1; OXYGEN DEVICE VENTILATOR; STAT NO; ULNAR PULSE PRESENT; VENT SETTINGS 450/14/5PEEP
[2017-03-21] MEDS ORDERED: DEXTROSE 50% IN WATER 50 ML SYRINGE ONE (20:56)
[2017-03-21] MEDS: MELATONIN 5 MG TAB PO SCH (21:02)
[2017-03-21] MEDS: DONEPEZIL HCL 5 MG TAB PO SCH (21:02)
[2017-03-21] MEDS: DEXTROSE 50% IN WATER 50 ML VIAL(D50) IV PRN (21:02)
[2017-03-21] MEDS: PHENYLEPHRINE INJ 160 MG in DEXTROSE 5% IN WATE 500 ML INJ 484 ML IV SCH ×2 (23:14)
[2017-03-22] VITALS (17 sets, daily range): BP systolic 98–114; BP diastolic 52–59; PULSE 80–102; RESP 14–15; TEMP 97.4–99.1; O2SAT 100
[2017-03-22] MEDS ORDERED: DEXTROSE 50% IN WATER 50 ML SYRINGE ONE (00:07)
[2017-03-22] MEDS: DEXTROSE 50% IN WATER 50 ML VIAL(D50) IV PRN (00:12)
[2017-03-22] MEDS: INSULIN NovoLIN REGULAR SUPPLEMENTAL SCALE SQ SCH ×6 (03:00→21:31)
[2017-03-22] MEDS: CHLORHEXIDINE GLUCONATE 2 % 1 PACK (2 CLOTHS) TOP SCH (04:00)
[2017-03-22] MEDS: MILRINONE INJ 20 MG in SODIUM CHLORIDE 0.9% INJ 80 ML IV SCH ×2 (05:52→21:27)
[2017-03-22] MEDS: OLANZapine ODT 5 MG TAB PO SCH (05:52)
[2017-03-22] MEDS: METOCLOPRAMIDE HCL 10 MG/2 ML VIAL IV PUSH SCH ×3 (05:52→21:12)
--- NOTE | 2017-03-22 08:30 | HHI.CCPN ---
Subjective Remarks/Hospital Course Patient is an 82-year-old female with past medical history significant for recurrent UTIs, atrial fibrillation, hypertension, dyslipidemia, dementia who was transferred from [place] emergency department after being diagnosed for NSTEMI. She presented with chest pain and EKG showed sinus tachycardia, and troponin was elevated at 4.43. Patient was given aspirin (by EMS) and started on IV heparin infusion. Patient was transferred to [facility] ICU per Dr. Keys's request. Other abnormal labs include BNP of 1330 and potassium of 3. Previous echo showed an ejection fraction of 45%. I evaluated the patient in the ICU. Appears in moderate distress, tachypneic, tachycardic, but denies chest pain (when asked in Turkish by RN). Patient was seen by Dr. Keys in the ICU, not a candidate for cardiac catheterization on interventions at this time. 2-D echo is pending. UA shows evidence of UTI. Started on cefepime and Diflucan (yeast present in UA). Repeat troponin and lactic acid pending at this time. SUBJ 03/12: I rounded on patient at about 0830 AM, patient was communicative tachypneic but not in severe distress. I was emergently called to the bedside at 10:30 AM patient was unresponsive agonal breathing with blood pressure 60/29 , bradycardic. Emergently started on dopamine. Patient was not protecting airway and I emergently intubated and placed on mechanical ventilation. An emergency left subclavian central line also placed. Levophed was added due to persistent hypotension. Patient appears to be in severe cardiogenic shock. EF 15 -20% down from 40% on 03/04/17. Patient also has moderate to severe MR, moderate to severe TR with moderate to severe pulmonary hypertension. I have discussed with Dr. Keys, she does not think patient is a candidate for any invasive therapy due to advanced age and comorbidities including dementia. I have updated daughter Cata 03/13: Remains intubated sedated critically ill. Remains on 3 pressors (dopamine , Neftali-Synephrine, milrinone). Urine output diminishing. Patient is in multiorgan failure prognosis poor. Family wants to continue full aggressive care palliative care is following. Urine culture showing group D enterococcus and Soledad. Cefepime discontinued Zosyn started along with vancomycin and continue Diflucan 03/14 Patient is sedated with versed and intubated. On Neosyn 200 mics and Milrinone. T: 100.0 last night. Off Dopamine 03/15 Patient remains intubated and sedated with Versed 5mg/hr, Nesoyn down 112 mics and on Milrinone. Afebrile. s/p transfusion 1unit PRBC yesterday. 03/16 No events overnight. Remains sedated with versed and intubated. On Neosyn and Milrinone. 03/17 Patient is intubated and sedated, Neosyn 100mics and Milrinone. Afebrile. 03/18 No events overnight. On Neosyn is down to 37 mics, Milrinone and sedated with Versed. Afebrile. 03/19: no changes. off pressors. remains on inotrops. remains in significant cariogenic shock and volume overload. still on versed. no improvements. off pathway. family wants aggressive care. 03/20: we have made no improvements to cardiogenic shock requiring inotropic therapy. off pathway. I had a long discussion with family and they still want aggressive care, stating "she has been closer to than this, and she always gets better." I talked about need for tracheostomy, and they are agreeable. 03/21 Patient remains intubated off sedation. Afebrile. For possible trach today. On Neosyn 30 mics and Milrinone. 03/22 Patient s/p trach and PEG tube placement yesterday. Neosyn down 10 mics, on Milrinone. Objective Vital Signs Date Time Temp Pulse Resp B/P Pulse Ox O2 Delivery O2 Flow Rate FiO2 03/22/17 07:50 100 35 03/22/17 06:00 89 03/22/17 04:00 97.4 14 100/57 Intake and Output 03/21/17 03/21/17 03/22/17 08:00 16:00 00:00 Intake Total 144 ml 333 ml 272 ml Output Total 1152 ml 1475 ml 800 ml Balance -1008 ml -1142 ml -528 ml Result Diagram: 03/21/17 0835 03/21/17 1800 Other Results Laboratory Tests Test 03/21/17 03/21/17 03/21/17 08:35 16:34 18:00 White Blood Count 8.4 TH/MM3 Red Blood Count 3.22 MIL/MM3 Hemoglobin 10.2 GM/DL Hematocrit 30.7 % Mean Corpuscular Volume 95.5 FL Mean Corpuscular Hemoglobin 31.5 PG Mean Corpuscular Hemoglobin 33.0 % Concent Red Cell Distribution Width 16.0 % Platelet Count 198 TH/MM3 Mean Platelet Volume 7.8 FL Neutrophils (%) (Auto) 87.0 % Lymphocytes (%) (Auto) 8.5 % Monocytes (%) (Auto) 4.4 % Eosinophils (%) (Auto) 0.1 % Basophils (%) (Auto) 0.0 % Neutrophils # (Auto) 7.3 TH/MM3 Lymphocytes # (Auto) 0.7 TH/MM3 Monocytes # (Auto) 0.4 TH/MM3 Eosinophils # (Auto) 0.0 TH/MM3 Basophils # (Auto) 0.0 TH/MM3 CBC Comment DIFF FINAL Differential Comment Prothrombin Time 11.3 SEC Prothromb Time International 1.0 RATIO Ratio Activated Partial 24.3 SEC Thromboplast Time Sodium Level 140 MEQ/L Potassium Level 2.7 MEQ/L 3.7 MEQ/L Chloride Level 105 MEQ/L Carbon Dioxide Level 25.6 MEQ/L Anion Gap 9 MEQ/L Blood Urea Nitrogen 44 MG/DL Creatinine 1.19 MG/DL Estimat Glomerular Filtration 43 ML/MIN Rate Random Glucose 94 MG/DL Calcium Level 8.5 MG/DL Digoxin Level 2.7 NG/ML Blood Gas Puncture Site LT RADIAL Blood Gas Patient Temperature 98.6 Blood Gas HCO3 24 mmol/L Blood Gas Base Excess -0.7 mmol/L Blood Gas Oxygen Saturation 97 % Arterial Blood pH 7.40 Arterial Blood Partial 39 mmHg Pressure CO2 Arterial Blood Partial 167 mmHg Pressure O2 Arterial Blood Oxygen Content 14.5 Vol % Arterial Blood 1.3 % Carboxyhemoglobin Arterial Blood Methemoglobin 0.8 % Blood Gas Hemoglobin 10.3 G/DL Oxygen Delivery Device VENTILATOR Blood Gas Ventilator Setting 450/14/5PEEP Blood Gas Inspired Oxygen 40 % Imaging Last Impressions Chest X-Ray 03/21/17 0000 Signed Impressions: Service Date/Time: Tuesday, March 21, 2017 13:21 - CONCLUSION: Improvement in the aeration of the lungs. Pelon Coelho MD Abdomen Ultrasound 03/16/17 0000 Signed Impressions: Service Date/Time: Thursday, March 16, 2017 20:35 - CONCLUSION: 1. Right renal cyst and multiple hepatic cysts. 2. Echogenic lesion in liver measures 1.8 cm likely hemangioma. Contrasted MRI may be warranted for confirmation. 3. Cholelithiasis. Evans Augustin MD Head CT 03/12/17 0000 Signed Impressions: Service Date/Time: Sunday, March 12, 2017 13:00 - CONCLUSION: 1. Cerebral atrophy and chronic ischemic small vessel vasculopathy. Evans Augustin MD Objective Remarks GENERAL: Patient is 82 yo on ventilator via trach SKIN: Warm and dry. HEAD: Normocephalic. EYES: No scleral icterus. No injection or drainage. NECK: Supple, trachea midline. No JVD or lymphadenopathy. Trach in place CARDIOVASCULAR: Regular rate and rhythm without murmurs, gallops, or rubs. RESPIRATORY: Breath sounds equal bilaterally. No accessory muscle use. GASTROINTESTINAL: Abdomen soft, non-tender, nondistended. +PEG tube MUSCULOSKELETAL: No cyanosis, or edema. Neuro: On vent via trach A/P Assessment and Plan Assessment: 82yF now in cardiogenic shock with multiorgan system failure. unlikely to improve. family continues to want aggressive care. will continue force diuresis despite kidney injury. continue milrinone now on increasing doses of vasopressors and requiring addition of phenylephrine again. very poor prognosis. very critically ill, remains in shock and multiorgan system dysfunction, off pathway. if we withdraw support, she will . NEURO: Acute encephalopathy Dementia Haldol 5mg iv q4h prn agitation melatonin 5mg po qhs for improved sleep-wake orientation. Continue home Aricept Encephalopathy most likely secondary to metabolic causes CT brain 03/12 :Cerebral atrophy and chronic ischemic small vessel vasculopathy. Check EEG RESP: Acute respiratory failure- s/p trach 03/21 History of COPD Pulmonary artery hypertension Continue with vent support and keep sat >92% Ventilator bundle. DuoNeb scheduled and when necessary SBT trials as carley Pulm toilet, trach care CV: NSTEMI Cardiogenic shock- persistent, severe Acute systolic heart failure Lactic acidosis Ischemic cardiomyopathy with ejection fraction 15-20% Moderate to severe mitral and tricuspid regurgitation History of A. fib s/p 2.5L bolus 03/11. All IV fluids discontinued due to pulmonary edema Ejection fraction 15-20% , in comparison to echocardiogram on 03/04/17 EF 40% Wean down pressors ( On Neosyn 10 mics, Milrinone) keep MAP>65mmHg Arterial line And flow track monitoring Amiodarone 200mg daily started by Dr. Keys, On Digoxin 0.125mg daily, Dig level: 1.4 on 03/14, recheck level today Lactic acid trending down 1.9 03/14 GI: IV Protonix 40mg BID s/p transfusion 1unit PRBC, GI is following. Resume tube feeds- Glucerna 1.5 with goal rate 45ml/hr On Reglan 5mg IV Q8 : acute kidney injury- secondary to cardiogenic shock Monitor renal function , I/O's, electrolytes replacement per protocol. ID: Severe sepsis- resolved. UTI 03/11 Urine culture growing Soledad and group D enterococcus(VRE) 03/14 Urine cx: C. Albicans Off abx- monitor for signs of infections ( Fever, WBC) ID is following- Dr. Domínguez HEME: Monitor CBC, CMP, coags s/p [id number] PRBC 03/14 ENDO: SSI for glycemic control. Place on D5NS@42ml/hr ( had hypoglycemic episode last night) Electrolyte replacement protocol PROPH: Bilateral lower extremity SCDs. resume SQ Heparin, Protonix LINES: Left subclavian central line, Right Femoral Art line- placed 03/12 CC time 30 min excluding procedures Palliative care following Follow up on labs today Deepthi Griffiths MD Mar 22, 2017 08:30
[2017-03-22] MEDS: PANTOPRAZOLE SODIUM 40 MG VIAL IV PUSH SCH ×2 (08:31→21:12)
[2017-03-22] MEDS: AMIODARONE 200 MG TAB OG-TUBE SCH (08:31)
[2017-03-22] MEDS: ASPIRIN 81 MG CHEW TAB CHEW SCH (08:31)
[2017-03-22] MEDS: DOCUSATE SODIUM 50 MG/SENNA 8.6 MG TAB PO SCH ×2 (08:32→21:12)
[2017-03-22 09:47] LABS: BICARBONATE 27.5 MEQ/L (21.0-32.0)
[2017-03-22 10:15] LABS: POTASSIUM 5.4 MEQ/L (3.5-5.1)
[2017-03-22] MEDS: DEXT 5%-NACL 0.9% 1000 ML INJ 1,000 ML IV SCH (10:47)
[2017-03-22] MEDS: CHLORHEXIDINE 0.12% (ORAL KIT) 15 ML CUP MT SCH ×2 (10:47→21:13)
--- NOTE | 2017-03-22 13:07 | HHI.GIFU ---
Subjective Remarks Patient is resting in bed tolerating TF okay. 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[employer] OFFICER) Objective Vitals I&O Vital Signs Date Time Temp Pulse Resp B/P Pulse Ox O2 Delivery O2 Flow Rate FiO2 03/22/17 12:27 100 35 03/22/17 10:00 96 03/22/17 08:00 45 03/22/17 08:00 98.2 84 14 111/58 100 03/22/17 08:00 84 03/22/17 07:50 100 35 03/22/17 06:00 89 03/22/17 04:00 45 03/22/17 04:00 97.4 81 14 100/57 100 03/22/17 04:00 81 03/22/17 03:44 100 35 03/22/17 02:00 80 03/22/17 00:00 87 03/22/17 00:00 45 03/22/17 00:00 97.6 87 14 110/59 100 03/21/17 23:27 100 35 03/21/17 22:00 75 03/21/17 20:00 45 03/21/17 20:00 97.4 76 14 104/58 100 03/21/17 20:00 76 03/21/17 19:43 100 40 03/21/17 18:00 75 03/21/17 16:36 100 40 03/21/17 16:00 97.5 75 14 117/55 93 03/21/17 16:00 45 03/21/17 16:00 75 03/21/17 16:00 75 03/21/17 14:00 74 I/O 03/21/17 03/21/17 03/21/17 03/22/17 03/22/17 03/22/17 07:00 15:00 23:00 07:00 15:00 23:00 Intake Total 144 ml 333 ml 272 ml 298 ml Output Total 1152 ml 1475 ml 800 ml 275 ml Balance -1008 ml -1142 ml -528 ml 23 ml IV Total 104 ml 333 ml 152 ml 105 ml Tube Feeding 40 ml 0 ml 73 ml Tube Irrigant 120 ml 120 ml Output Urine Total 1150 ml 1475 ml 750 ml 225 ml Stool Total 2 ml 50 ml 50 ml # Bowel Movements 2 2 Laboratory Laboratory Tests Test 03/21/17 03/21/17 03/22/17 16:34 18:00 08:45 Blood Gas Puncture Site LT RADIAL Blood Gas Patient Temperature 98.6 Blood Gas HCO3 24 Blood Gas Base Excess -0.7 Blood Gas Oxygen Saturation 97 Arterial Blood pH 7.40 Arterial Blood Partial 39 Pressure CO2 Arterial Blood Partial 167 Pressure O2 Arterial Blood Oxygen Content 14.5 Arterial Blood 1.3 Carboxyhemoglobin Arterial Blood Methemoglobin 0.8 Blood Gas Hemoglobin 10.3 Oxygen Delivery Device VENTILATOR Blood Gas Ventilator Setting 450/14/5PEEP Blood Gas Inspired Oxygen 40 Potassium Level 3.7 5.4 Sodium Level 139 Chloride Level 106 Carbon Dioxide Level 27.5 Anion Gap 6 Blood Urea Nitrogen 38 Creatinine 0.92 Estimat Glomerular Filtration 58 Rate Random Glucose 111 Calcium Level 8.2 Date/Time Procedure Status Source Growth 03/21/17 00:01 Stool Occult Blood (DANIAL) - Final Complete Stool Stool HEMOCCULT POSITIVE Imaging Last Impressions Chest X-Ray 03/21/17 0000 Signed Impressions: Service Date/Time: Tuesday, March 21, 2017 13:21 - CONCLUSION: Improvement in the aeration of the lungs. Pelon Coelho MD Abdomen Ultrasound 03/16/17 0000 Signed Impressions: Service Date/Time: Thursday, March 16, 2017 20:35 - CONCLUSION: 1. Right renal cyst and multiple hepatic cysts. 2. Echogenic lesion in liver measures 1.8 cm likely hemangioma. Contrasted MRI may be warranted for confirmation. 3. Cholelithiasis. Evans Augustin MD Head CT 03/12/17 0000 Signed Impressions: Service Date/Time: Sunday, March 12, 2017 13:00 - CONCLUSION: 1. Cerebral atrophy and chronic ischemic small vessel vasculopathy. Evans Augustin MD Physical Exam HEENT: Normocephalic; atraumatic; no jaundice. trach to vent CHEST: CTA CARDIAC: RRR ABDOMEN: Soft, nondistended, nontender; no hepatosplenomegaly; bowel sounds x 4 quadrants. PEG tube EXTREMITIES: Generalized edema SKIN: Normal; no rash; no jaundice. LOG SNAKER: vent. (Ruthann Elise) Assessment and Plan Plan ASSESSMENT: - dysphagia - need for detention mech ventilation. S/P EGD/PEG on (03/21/17) - Anemia with drop in Hgb. No obvious GI bleeding. No vomiting. No rectal bleeding. HH stable Hemoccult stool negative. - NSTEMI, Atrial fibrillation, CMP. Cardiology following, not a candidate for revascularization. Medical management. - Respiratory failure. Vent per CCM. - Sepsis, UTI. Urine cx on admission with seth albicans and enterococcus faecium. per CCM - WALESKA with electrolyte abnormalities. Per CCM - Dementia. Per CCM PLAN - TF, advance to goal rate - Flush tube with 250 ml every shift - Cont. Protonix 40mg IV BID - Monitor HH - Transfuse as necessary - Monitor labs - GI will sign off - please reconsult as needed Patient seen and examined by Dr. Smith and myself and this note is written on his behalf (Ruthann Elise) Physician Comments Patient seen and examined Agree with above Continue with current supportive care Monitor labs We will sign off (Kadeem Smith MD) Ruthann Elise Mar 22, 2017 13:07 Kadeem Smith MD Mar 22, 2017 18:12
[2017-03-22] MEDS ORDERED: ALTEPLASE RECOMBINANT 2 MG VIAL IV PRN (16:30)
--- NOTE | 2017-03-22 19:28 | HHI.IDPN ---
Subjective Subjective Remarks pt is not responsive Having diarrhea remains on vent back on the rate Antibiotics no abx Allergies: Coded Allergies: Aspirin (Verified Allergy, Unknown, 03/11/17) pt sts ulcer *MDRO Multi-Drug Resistant Organism (Verified Adverse Reaction, Unknown, ) VRE (urine) 03/11/17 Uncoded Allergies: antipsycotics (Allergy, Intermediate, Confusion, 03/01/17) Objective . Vital Signs Date Time Temp Pulse Resp B/P Pulse Ox O2 Delivery O2 Flow Rate FiO2 03/22/17 18:00 97 03/22/17 16:00 102 03/22/17 16:00 35 03/22/17 16:00 98.2 102 15 98/52 100 03/22/17 15:56 35 03/22/17 15:55 100 35 03/22/17 14:00 96 03/22/17 12:27 100 35 03/22/17 12:00 94 03/22/17 12:00 45 03/22/17 12:00 98.0 94 14 106/53 100 03/22/17 10:00 96 03/22/17 08:00 45 03/22/17 08:00 98.2 84 14 111/58 100 03/22/17 08:00 84 03/22/17 07:50 100 35 03/22/17 06:00 89 03/22/17 04:00 45 03/22/17 04:00 97.4 81 14 100/57 100 03/22/17 04:00 81 03/22/17 03:44 100 35 03/22/17 02:00 80 03/22/17 00:00 87 03/22/17 00:00 45 03/22/17 00:00 97.6 87 14 110/59 100 03/21/17 23:27 100 35 03/21/17 22:00 75 03/21/17 20:00 45 03/21/17 20:00 97.4 76 14 104/58 100 03/21/17 20:00 76 03/21/17 19:43 100 40 03/21/17 03/21/17 03/22/17 14:59 22:59 06:59 Intake Total 333 ml 272 ml 298 ml Output Total 1475 ml 800 ml 275 ml Balance -1142 ml -528 ml 23 ml IV Total 333 ml 152 ml 105 ml Tube Feeding 0 ml 73 ml Tube Irrigant 120 ml 120 ml Output Urine Total 1475 ml 750 ml 225 ml Stool Total 50 ml 50 ml # Bowel Movements 2 . Laboratory Tests Test 03/21/17 08:35 White Blood Count 8.4 TH/MM3 Red Blood Count 3.22 MIL/MM3 Hemoglobin 10.2 GM/DL Hematocrit 30.7 % Mean Corpuscular Volume 95.5 FL Mean Corpuscular Hemoglobin 31.5 PG Mean Corpuscular Hemoglobin 33.0 % Concent Red Cell Distribution Width 16.0 % Platelet Count 198 TH/MM3 Mean Platelet Volume 7.8 FL Neutrophils (%) (Auto) 87.0 % Lymphocytes (%) (Auto) 8.5 % Monocytes (%) (Auto) 4.4 % Eosinophils (%) (Auto) 0.1 % Basophils (%) (Auto) 0.0 % Neutrophils # (Auto) 7.3 TH/MM3 Lymphocytes # (Auto) 0.7 TH/MM3 Monocytes # (Auto) 0.4 TH/MM3 Eosinophils # (Auto) 0.0 TH/MM3 Basophils # (Auto) 0.0 TH/MM3 CBC Comment DIFF FINAL Differential Comment Laboratory Tests Test 03/21/17 03/21/17 03/22/17 08:35 18:00 08:45 Sodium Level 140 MEQ/L 139 MEQ/L Potassium Level 2.7 MEQ/L 3.7 MEQ/L 5.4 MEQ/L Chloride Level 105 MEQ/L 106 MEQ/L Carbon Dioxide Level 25.6 MEQ/L 27.5 MEQ/L Anion Gap 9 MEQ/L 6 MEQ/L Blood Urea Nitrogen 44 MG/DL 38 MG/DL Creatinine 1.19 MG/DL 0.92 MG/DL Estimat Glomerular Filtration 43 ML/MIN 58 ML/MIN Rate Random Glucose 94 MG/DL 111 MG/DL Calcium Level 8.5 MG/DL 8.2 MG/DL Microbiology Date/Time Procedure Status Source Growth 03/21/17 00:01 Stool Occult Blood (DANIAL) - Final Complete Stool Stool HEMOCCULT POSITIVE Imaging Last Impressions Chest X-Ray 03/21/17 0000 Signed Impressions: Service Date/Time: Tuesday, March 21, 2017 13:21 - CONCLUSION: Improvement in the aeration of the lungs. Pelon Coelho MD Abdomen Ultrasound 03/16/17 0000 Signed Impressions: Service Date/Time: Thursday, March 16, 2017 20:35 - CONCLUSION: 1. Right renal cyst and multiple hepatic cysts. 2. Echogenic lesion in liver measures 1.8 cm likely hemangioma. Contrasted MRI may be warranted for confirmation. 3. Cholelithiasis. Evans Augustin MD Head CT 03/12/17 0000 Signed Impressions: Service Date/Time: Sunday, March 12, 2017 13:00 - CONCLUSION: 1. Cerebral atrophy and chronic ischemic small vessel vasculopathy. Evans Augustin MD Physical Exam CONSTITUTIONAL/GENERAL: This is an adequately nourished patient, in no apparent distress. TUBES/LINES/DRAINS: SKIN: No jaundice, rashes, or lesions. Not diaphoretic. CARDIOVASCULAR: Regular rate and rhythm without murmurs, gallops, or rubs. RESPIRATORY/CHEST: Symmetric, unlabored respirations. Clear to auscultation. Breath sounds equal bilaterally. No wheezes, rales, or rhonchi. GASTROINTESTINAL: Abdomen soft, no reaction to palpation, mildly distended. GENITOURINARY: Without palpable bladder distension. Abrams catheter in place with clear yellow urine MUSCULOSKELETAL: Extremities without clubbing, worsenig diffuse edema. No cyanosis, perfused extremeties NEUROLOGICAL: unresponsive PSYCHIATRIC: unable to assess Assessment & Plan Remarks NSTEMI Heart hfailure with cardiogenic shock VRE UTI sp zyvox Candiduria sp fluconazole Acute VDRF, cfailure to wean Bilateral lower lobe atelectasis versus early pneumonia - clx with nl resp ashwin Critically ill and stable Abx associated diarrhea, C.diff negative x 2 Fever, leukocytosisn- resolved REC's: monitor WBC monitor temps no clinical indicartion for abx at this point will sign off ; reconsult if needed dw Tracie Jane MD Mar 22, 2017 19:28
--- NOTE | 2017-03-22 19:37 | HHI.PR ---
Subjective Subjective Notes s/p perc trach Objective Vitals/I&O Vital Signs Date Time Temp Pulse Resp B/P Pulse Ox O2 Delivery O2 Flow Rate FiO2 03/22/17 18:00 97 03/22/17 16:00 35 03/22/17 16:00 98.2 15 98/52 100 Labs Laboratory Tests Test 03/22/17 08:45 Sodium Level 139 Potassium Level 5.4 Chloride Level 106 Carbon Dioxide Level 27.5 Anion Gap 6 Blood Urea Nitrogen 38 Creatinine 0.92 Estimat Glomerular Filtration 58 Rate Random Glucose 111 Calcium Level 8.2 Date/Time Procedure Status Source Growth 03/21/17 00:01 Stool Occult Blood (DANIAL) - Final Complete Stool Stool HEMOCCULT POSITIVE Narrative Exam trach functioning well, site clean, dry, no bleeding A/P Assessment and Plan 82yo female s/p perc trach, stable will sign off, call if needed Carlos Garcia MD Mar 22, 2017 19:37
[2017-03-22] MEDS: MELATONIN 5 MG TAB PO SCH (21:12)
[2017-03-22] MEDS: DONEPEZIL HCL 5 MG TAB PO SCH (21:12)
[2017-03-22] MEDS: HEPARIN SODIUM - SQ 10,000 UNITS/ML VIAL SQ SCH (21:27)
[2017-03-22 22:00] LABS: AUTOMATED NEUTROPHIL # 6.1 TH/MM3 (1.8-7.7); BASOPHIL % 0.1 % (0.0-2.0); EOSINOPHIL % 0.3 % (0.0-4.0); HEMATOCRIT 28.5 % (35.0-46.0); HEMO FLAGS DIFF FINAL; LYMPH % 8.5 % (9.0-44.0); LYMPHOCYTE # 0.6 TH/MM3 (1.0-4.8); MEAN CELL VOLUME 95.8 FL (80.0-100.0); MEAN CORPUSCULAR HGB CONC 33.4 % (32.0-36.0); MONO % 3.9 % (0.0-8.0); NEUT % 87.2 % (16.0-70.0); PLATELET COUNT 139 TH/MM3 (150-450); RED BLOOD COUNT 2.98 MIL/MM3 (4.00-5.30); RED CELL DISTRIBUTION WIDTH 15.9 % (11.6-17.2)
[2017-03-23] VITALS (19 sets, daily range): BP systolic 111–124; BP diastolic 56–61; PULSE 76–100; RESP 13–20; TEMP 98.4–99.3; O2SAT 100
[2017-03-23] MEDS: INSULIN NovoLIN REGULAR SUPPLEMENTAL SCALE SQ SCH ×6 (01:00→21:00)
[2017-03-23] MEDS: CHLORHEXIDINE GLUCONATE 2 % 1 PACK (2 CLOTHS) TOP SCH (04:00)
[2017-03-23] MEDS: METOCLOPRAMIDE HCL 10 MG/2 ML VIAL IV PUSH SCH ×3 (04:59→20:45)
[2017-03-23] MEDS: DEXT 5%-NACL 0.9% 1000 ML INJ 1,000 ML IV SCH (04:59)
[2017-03-23 06:10] LABS: AUTOMATED NEUTROPHIL # 5.7 TH/MM3 (1.8-7.7); EOSINOPHIL % 0.7 % (0.0-4.0); HEMATOCRIT 27.7 % (35.0-46.0); HEMO FLAGS DIFF FINAL; LYMPH % 11.1 % (9.0-44.0); LYMPHOCYTE # 0.7 TH/MM3 (1.0-4.8); MEAN CELL VOLUME 96.1 FL (80.0-100.0); MEAN CORPUSCULAR HEMOGLOBIN 32.4 PG (27.0-34.0); MEAN CORPUSCULAR HGB CONC 33.8 % (32.0-36.0); MONO % 4.6 % (0.0-8.0); NEUT % 83.6 % (16.0-70.0); PLATELET COUNT 132 TH/MM3 (150-450); RED BLOOD COUNT 2.88 MIL/MM3 (4.00-5.30); RED CELL DISTRIBUTION WIDTH 16.1 % (11.6-17.2); WHITE BLOOD COUNT 6.8 TH/MM3 (4.0-11.0)
[2017-03-23 06:24] LABS: BICARBONATE 28.8 MEQ/L (21.0-32.0); POTASSIUM 3.6 MEQ/L (3.5-5.1)
--- NOTE | 2017-03-23 08:02 | HHI.CCPN ---
Subjective Remarks/Hospital Course Patient is an 82-year-old female with past medical history significant for recurrent UTIs, atrial fibrillation, hypertension, dyslipidemia, dementia who was transferred from [place] emergency department after being diagnosed for NSTEMI. She presented with chest pain and EKG showed sinus tachycardia, and troponin was elevated at 4.43. Patient was given aspirin (by EMS) and started on IV heparin infusion. Patient was transferred to [facility] ICU per Dr. Keys's request. Other abnormal labs include BNP of 1330 and potassium of 3. Previous echo showed an ejection fraction of 45%. I evaluated the patient in the ICU. Appears in moderate distress, tachypneic, tachycardic, but denies chest pain (when asked in Bhutanese by RN). Patient was seen by Dr. Keys in the ICU, not a candidate for cardiac catheterization on interventions at this time. 2-D echo is pending. UA shows evidence of UTI. Started on cefepime and Diflucan (yeast present in UA). Repeat troponin and lactic acid pending at this time. SUBJ 03/12: I rounded on patient at about 0830 AM, patient was communicative tachypneic but not in severe distress. I was emergently called to the bedside at 10:30 AM patient was unresponsive agonal breathing with blood pressure 60/29 , bradycardic. Emergently started on dopamine. Patient was not protecting airway and I emergently intubated and placed on mechanical ventilation. An emergency left subclavian central line also placed. Levophed was added due to persistent hypotension. Patient appears to be in severe cardiogenic shock. EF 15 -20% down from 40% on 03/04/17. Patient also has moderate to severe MR, moderate to severe TR with moderate to severe pulmonary hypertension. I have discussed with Dr. Keys, she does not think patient is a candidate for any invasive therapy due to advanced age and comorbidities including dementia. I have updated daughter Cata 03/13: Remains intubated sedated critically ill. Remains on 3 pressors (dopamine , Neftali-Synephrine, milrinone). Urine output diminishing. Patient is in multiorgan failure prognosis poor. Family wants to continue full aggressive care palliative care is following. Urine culture showing group D enterococcus and Soledad. Cefepime discontinued Zosyn started along with vancomycin and continue Diflucan 03/14 Patient is sedated with versed and intubated. On Neosyn 200 mics and Milrinone. T: 100.0 last night. Off Dopamine 03/15 Patient remains intubated and sedated with Versed 5mg/hr, Nesoyn down 112 mics and on Milrinone. Afebrile. s/p transfusion 1unit PRBC yesterday. 03/16 No events overnight. Remains sedated with versed and intubated. On Neosyn and Milrinone. 03/17 Patient is intubated and sedated, Neosyn 100mics and Milrinone. Afebrile. 03/18 No events overnight. On Neosyn is down to 37 mics, Milrinone and sedated with Versed. Afebrile. 03/19: no changes. off pressors. remains on inotrops. remains in significant cariogenic shock and volume overload. still on versed. no improvements. off pathway. family wants aggressive care. 03/20: we have made no improvements to cardiogenic shock requiring inotropic therapy. off pathway. I had a long discussion with family and they still want aggressive care, stating "she has been closer to than this, and she always gets better." I talked about need for tracheostomy, and they are agreeable. 03/21 Patient remains intubated off sedation. Afebrile. For possible trach today. On Neosyn 30 mics and Milrinone. 03/22 Patient s/p trach and PEG tube placement yesterday. Neosyn down 10 mics, on Milrinone. 03/23 Patient is off Neosyn, on Milrinone. Tolerating tube feeds. Objective Vital Signs Date Time Temp Pulse Resp B/P Pulse Ox O2 Delivery O2 Flow Rate FiO2 03/23/17 07:26 100 35 03/23/17 06:00 95 03/23/17 04:00 98.7 16 111/56 Intake and Output 03/22/17 03/22/17 03/22/17 07:59 15:59 23:59 Intake Total 298 ml 547 ml 659 ml Output Total 275 ml 200 ml 210 ml Balance 23 ml 347 ml 449 ml Result Diagram: 03/23/17 0510 03/23/17 0510 Other Results Laboratory Tests Test 03/22/17 03/22/1703/23/17 08:45 21:16 05:10 Sodium Level 139 MEQ/L 145 MEQ/L Potassium Level 5.4 MEQ/L 3.6 MEQ/L 3.6 MEQ/L Chloride Level 106 MEQ/L 109 MEQ/L Carbon Dioxide Level 27.5 MEQ/L 28.8 MEQ/L Anion Gap 6 MEQ/L 7 MEQ/L Blood Urea Nitrogen 38 MG/DL 36 MG/DL Creatinine 0.92 MG/DL 0.71 MG/DL Estimat Glomerular Filtration 58 ML/MIN 78 ML/MIN Rate Random Glucose 111 MG/DL 124 MG/DL Calcium Level 8.2 MG/DL 8.4 MG/DL White Blood Count 7.0 TH/MM3 6.8 TH/MM3 Red Blood Count 2.98 MIL/MM3 2.88 MIL/MM3 Hemoglobin 9.5 GM/DL 9.3 GM/DL Hematocrit 28.5 % 27.7 % Mean Corpuscular Volume 95.8 FL 96.1 FL Mean Corpuscular Hemoglobin 32.0 PG 32.4 PG Mean Corpuscular Hemoglobin 33.4 % 33.8 % Concent Red Cell Distribution Width 15.9 % 16.1 % Platelet Count 139 TH/MM3 132 TH/MM3 Mean Platelet Volume 8.3 FL 8.3 FL Neutrophils (%) (Auto) 87.2 % 83.6 % Lymphocytes (%) (Auto) 8.5 % 11.1 % Monocytes (%) (Auto) 3.9 % 4.6 % Eosinophils (%) (Auto) 0.3 % 0.7 % Basophils (%) (Auto) 0.1 % 0.0 % Neutrophils # (Auto) 6.1 TH/MM3 5.7 TH/MM3 Lymphocytes # (Auto) 0.6 TH/MM3 0.7 TH/MM3 Monocytes # (Auto) 0.3 TH/MM3 0.3 TH/MM3 Eosinophils # (Auto) 0.0 TH/MM3 0.0 TH/MM3 Basophils # (Auto) 0.0 TH/MM3 0.0 TH/MM3 CBC Comment DIFF FINAL DIFF FINAL Differential Comment Imaging Last Impressions Chest X-Ray 03/21/17 0000 Signed Impressions: Service Date/Time: Tuesday, March 21, 2017 13:21 - CONCLUSION: Improvement in the aeration of the lungs. Pelon Coelho MD Abdomen Ultrasound 03/16/17 0000 Signed Impressions: Service Date/Time: Thursday, March 16, 2017 20:35 - CONCLUSION: 1. Right renal cyst and multiple hepatic cysts. 2. Echogenic lesion in liver measures 1.8 cm likely hemangioma. Contrasted MRI may be warranted for confirmation. 3. Cholelithiasis. Evans Augustin MD Head CT 03/12/17 0000 Signed Impressions: Service Date/Time: Sunday, March 12, 2017 13:00 - CONCLUSION: 1. Cerebral atrophy and chronic ischemic small vessel vasculopathy. Evans Augustin MD Objective Remarks GENERAL: Patient is 82 yo on ventilator via trach SKIN: Warm and dry. HEAD: Normocephalic. EYES: No scleral icterus. No injection or drainage. NECK: Supple, trachea midline. No JVD or lymphadenopathy. Trach in place CARDIOVASCULAR: Regular rate and rhythm without murmurs, gallops, or rubs. RESPIRATORY: Breath sounds equal bilaterally. No accessory muscle use. GASTROINTESTINAL: Abdomen soft, non-tender, nondistended. +PEG tube MUSCULOSKELETAL: No cyanosis, or edema. Neuro: On vent via trach A/P Assessment and Plan NEURO: Acute encephalopathy Dementia Haldol 5mg iv q4h prn agitation melatonin 5mg po qhs for improved sleep-wake orientation. Continue home Aricept Encephalopathy most likely secondary to metabolic causes CT brain 03/12 :Cerebral atrophy and chronic ischemic small vessel vasculopathy. Follow up on EEG results RESP: Acute respiratory failure- s/p trach 03/21 History of COPD Pulmonary artery hypertension Continue with vent support and keep sat >92% Ventilator bundle. DuoNeb scheduled and when necessary SBT trials as carley Pulm toilet, trach care CV: NSTEMI Cardiogenic shock- persistent, severe Acute systolic heart failure Lactic acidosis Ischemic cardiomyopathy with ejection fraction 15-20% Moderate to severe mitral and tricuspid regurgitation History of A. fib s/p 2.5L bolus 03/11. All IV fluids discontinued due to pulmonary edema Ejection fraction 15-20% , in comparison to echocardiogram on 03/04/17 EF 40% Off Neosyn, wean off Milrinone) keep MAP>65mmHg Arterial line And flow track monitoring Amiodarone 200mg daily started by Dr. Keys, Digoxin 0.125mg daily on hold , Dig. level 2.7 yesterday check level today Lactic acid trending down 1.9 03/14 GI: IV Protonix 40mg BID s/p transfusion 1unit PRBC, GI is following. Resume tube feeds- Glucerna 1.5@45ml/hr On Reglan 5mg IV Q8 : acute kidney injury- secondary to cardiogenic shock Monitor renal function , I/O's, electrolytes replacement per protocol. Change IVF D51/2@NS@42l/hr ID: Severe sepsis- resolved. UTI 03/11 Urine culture growing Soledad and group D enterococcus(VRE) 03/14 Urine cx: C. Albicans Off abx- monitor for signs of infections ( Fever, WBC) ID is following- Dr. Domínguez HEME: Monitor CBC, CMP, coags s/p [id number] PRBC 03/14 ENDO: SSI for glycemic control. Place on D5NS@42ml/hr ( had hypoglycemic episode last night) Electrolyte replacement protocol PROPH: Bilateral lower extremity SCDs. resume SQ Heparin, Protonix LINES: Left subclavian central line, Right Femoral Art line- placed 03/12 CC time 30 min excluding procedures Palliative care following Deepthi Griffiths MD Mar 23, 2017 08:02
[2017-03-23] MEDS: HEPARIN SODIUM - SQ 10,000 UNITS/ML VIAL SQ SCH ×2 (08:12→20:45)
[2017-03-23] MEDS: AMIODARONE 200 MG TAB OG-TUBE SCH (08:13)
[2017-03-23] MEDS: PANTOPRAZOLE SODIUM 40 MG VIAL IV PUSH SCH ×2 (08:13→20:44)
[2017-03-23] MEDS: DOCUSATE SODIUM 50 MG/SENNA 8.6 MG TAB PO SCH ×2 (08:13→20:45)
[2017-03-23] MEDS: ASPIRIN 81 MG CHEW TAB CHEW SCH (08:13)
[2017-03-23] MEDS: CHLORHEXIDINE 0.12% (ORAL KIT) 15 ML CUP MT SCH ×2 (08:13→20:46)
--- NOTE | 2017-03-23 08:52 | MG ---
cc: BETHANY ABURTO MD Lab No: [id number] Date: 03/22/2017 Age: 82 Sex: F Race: 1935 A 82-year-old female with mental status changes. Significant electrical artifact occurring in all the channels making the EEG largely uninterpretable, questionable delta activity occurring, 2-3 Hz, 20-70 microvolts. Photic stimulation uninterpretable. Poorly formed P-wave on EKG. INTERPRETATION Significant movement, electrical artifact. However, interpretable epochs of EEG suggest at least a moderate degree of encephalopathy. Clinical correlation. Bethany Aburto MD MG/TLL /7:57 AM /8:42 AM
[2017-03-23] MEDS: DEXT 5%-NACL 0.45% 1000 ML INJ 1,000 ML IV SCH (10:25)
[2017-03-23] MEDS: MILRINONE INJ 20 MG in SODIUM CHLORIDE 0.9% INJ 80 ML IV SCH (13:43)
--- NOTE | 2017-03-23 19:14 | MP ---
cc: HARMAN COBOS DATE OF SURGERY: 03/21/2017. PREOPERATIVE DIAGNOSIS: 1. Ventilator-dependent respiratory failure. 2. Severe cardiac dysfunction. POSTOPERATIVE DIAGNOSIS: 1. Ventilator-dependent respiratory failure. 2. Severe cardiac dysfunction. OPERATIVE PROCEDURE PERFORMED: Bedside percutaneous tracheostomy. ATTENDING SURGEON: Harman Cobos M.D. CUSTOMER SERVICE RECEPTIONIST: None. ANESTHESIA: Conscious sedation performed by supervisor facepiece line, Dr. Griffiths. Local anesthetic with 1% lidocaine with epinephrine. COMPLICATIONS: None. ESTIMATED BLOOD LOSS: Less than 10 cc. FINDINGS: A size 8 cuffed tracheostomy in good position in the trachea below the cricoid cartilage. INDICATIONS FOR THE PROCEDURE: The patient is an 82-year-old female with severe cardiac dysfunction and ventilator-dependent respiratory failure requiring tracheostomy for continued life support. The patient's family has declined palliative measures for this prognosis patient. The patient's family wants to continue aggressive therapy and the patient has required a tracheostomy as she is unable to maintain her oxygenation and ventilation off the ventilator. The risks, benefits, and alternatives were discussed with the patient's family. DESCRIPTION OF THE PROCEDURE IN DETAIL: After informed consent was verified, the patient underwent sedation in the intensive care unit in her intensive care unit bed. The patient underwent conscious sedation administered by Dr. Griffiths as well as a bronchoscopy performed through the endotracheal tube. Please see his separate dictated procedure note for this procedure. Once the patient was appropriately positioned, the anterior neck was prepped and draped in sterile fashion. We anesthetized the area of the sternal notch using 1% lidocaine with epinephrine. We made a small 2 cm horizontal skin incision two fingerbreadths above the sternal notch. We dissected down with a hemostat through the platysma down to the pretracheal fascia. We were able to access the trachea with the 6.0 tracheostomy kit through the anterior tracheal membrane in-between the tracheal rings. Air was entered into the syringe and we verified the wire to be passing into the trachea in good position without difficulty. His trache was dilated and a Seldinger technique was used to place a 6.0 Shiley cuffed endotracheal tube into the tracheotomy percutaneously. The cuff was inflated and we did perform a bronchoscopy through this newly placed tracheostomy without difficulty. This was verified to be in good position. The patient had good oxygenation and ventilation through her new tracheostomy tube to the ventilator. Sutures were placed and the tracheal cuff was placed on the trachea to ensure good positioning. An inner cannula was also placed. The patient tolerated the procedure well. No desaturations. No apparent complications. X-ray was ordered for verification of position and to rule out any acute changes. I was present and scrubbed for the entire procedure. MD LIZZ Kumar/NIIKTA /8:41 AM /6:59 PM
[2017-03-23] MEDS: DONEPEZIL HCL 5 MG TAB PO SCH (20:45)
[2017-03-23] MEDS: MELATONIN 5 MG TAB PO SCH (20:45)
[2017-03-24] VITALS (33 sets, daily range): BP systolic 98–138; BP diastolic 52–76; PULSE 72–142; RESP 12–27; TEMP 97.3–98.8; O2SAT 98–100
[2017-03-24] MEDS: CHLORHEXIDINE GLUCONATE 2 % 1 PACK (2 CLOTHS) TOP SCH (00:37)
[2017-03-24] MEDS: INSULIN NovoLIN REGULAR SUPPLEMENTAL SCALE SQ SCH ×6 (00:45→20:54)
[2017-03-24] MEDS: MILRINONE INJ 20 MG in SODIUM CHLORIDE 0.9% INJ 80 ML IV SCH ×2 (04:04→22:41)
[2017-03-24] MEDS: METOCLOPRAMIDE HCL 10 MG/2 ML VIAL IV PUSH SCH ×3 (04:43→20:55)
[2017-03-24 05:26] LABS: AUTOMATED NEUTROPHIL # 5.7 TH/MM3 (1.8-7.7); EOSINOPHIL # 0.1 TH/MM3 (0-0.4); EOSINOPHIL % 1.5 % (0.0-4.0); HEMATOCRIT 27.5 % (35.0-46.0); HEMO FLAGS DIFF FINAL; LYMPH % 14.6 % (9.0-44.0); LYMPHOCYTE # 1.1 TH/MM3 (1.0-4.8); MEAN CELL VOLUME 96.5 FL (80.0-100.0); MEAN CORPUSCULAR HGB CONC 33.2 % (32.0-36.0); NEUT % 77.9 % (16.0-70.0); PLATELET COUNT 113 TH/MM3 (150-450); RED BLOOD COUNT 2.85 MIL/MM3 (4.00-5.30); RED CELL DISTRIBUTION WIDTH 16.6 % (11.6-17.2); WHITE BLOOD COUNT 7.3 TH/MM3 (4.0-11.0)
[2017-03-24 05:39] LABS: BICARBONATE 29.8 MEQ/L (21.0-32.0); POTASSIUM 3.8 MEQ/L (3.5-5.1)
[2017-03-24] MEDS: RESP: ALBUTEROL 2.5 MG/IPRATROPIUM 0.5 MG NEB (PRN) INH (07:35)
--- NOTE | 2017-03-24 07:54 | HHI.CCPN ---
Subjective Remarks/Hospital Course Patient is an 82-year-old female with past medical history significant for recurrent UTIs, atrial fibrillation, hypertension, dyslipidemia, dementia who was transferred from [place] emergency department after being diagnosed for NSTEMI. She presented with chest pain and EKG showed sinus tachycardia, and troponin was elevated at 4.43. Patient was given aspirin (by EMS) and started on IV heparin infusion. Patient was transferred to [facility] ICU per Dr. Keys's request. Other abnormal labs include BNP of 1330 and potassium of 3. Previous echo showed an ejection fraction of 45%. I evaluated the patient in the ICU. Appears in moderate distress, tachypneic, tachycardic, but denies chest pain (when asked in [place]ym[place] by RN). Patient was seen by Dr. Keys in the ICU, not a candidate for cardiac catheterization on interventions at this time. 2-D echo is pending. UA shows evidence of UTI. Started on cefepime and Diflucan (yeast present in UA). Repeat troponin and lactic acid pending at this time. SUBJ 03/12: I rounded on patient at about 0830 AM, patient was communicative tachypneic but not in severe distress. I was emergently called to the bedside at 10:30 AM patient was unresponsive agonal breathing with blood pressure 60/29 , bradycardic. Emergently started on dopamine. Patient was not protecting airway and I emergently intubated and placed on mechanical ventilation. An emergency left subclavian central line also placed. Levophed was added due to persistent hypotension. Patient appears to be in severe cardiogenic shock. EF 15 -20% down from 40% on 03/04/17. Patient also has moderate to severe MR, moderate to severe TR with moderate to severe pulmonary hypertension. I have discussed with Dr. Keys, she does not think patient is a candidate for any invasive therapy due to advanced age and comorbidities including dementia. I have updated daughter Cata 03/13: Remains intubated sedated critically ill. Remains on 3 pressors (dopamine , Neftali-Synephrine, milrinone). Urine output diminishing. Patient is in multiorgan failure prognosis poor. Family wants to continue full aggressive care palliative care is following. Urine culture showing group D enterococcus and Soledad. Cefepime discontinued Zosyn started along with vancomycin and continue Diflucan 03/14 Patient is sedated with versed and intubated. On Neosyn 200 mics and Milrinone. T: 100.0 last night. Off Dopamine 03/15 Patient remains intubated and sedated with Versed 5mg/hr, Nesoyn down 112 mics and on Milrinone. Afebrile. s/p transfusion 1unit PRBC yesterday. 03/16 No events overnight. Remains sedated with versed and intubated. On Neosyn and Milrinone. 03/17 Patient is intubated and sedated, Neosyn 100mics and Milrinone. Afebrile. 03/18 No events overnight. On Neosyn is down to 37 mics, Milrinone and sedated with Versed. Afebrile. 03/19: no changes. off pressors. remains on inotrops. remains in significant cariogenic shock and volume overload. still on versed. no improvements. off pathway. family wants aggressive care. 03/20: we have made no improvements to cardiogenic shock requiring inotropic therapy. off pathway. I had a long discussion with family and they still want aggressive care, stating "she has been closer to than this, and she always gets better." I talked about need for tracheostomy, and they are agreeable. 03/21 Patient remains intubated off sedation. Afebrile. For possible trach today. On Neosyn 30 mics and Milrinone. 03/22 Patient s/p trach and PEG tube placement yesterday. Neosyn down 10 mics, on Milrinone. 03/23 Patient is off Neosyn, on Milrinone. Tolerating tube feeds. 03/24 No events overnight. off all pressors. On PRVC with PEEP: 5 and FIO2 35%. Tolerated CPAP x 2 hrs yesterday Objective Vital Signs Date Time Temp Pulse Resp B/P Pulse Ox O2 Delivery O2 Flow Rate FiO2 03/24/17 07:30 100 35 03/24/17 06:00 80 03/24/17 04:00 98.3 26 112/69 Intake and Output 03/23/17 03/23/17 03/24/17 08:00 16:00 00:00 Intake Total 609 ml 777 ml 791 ml Output Total 350 ml 485 ml 375 ml Balance 259 ml 292 ml 416 ml Result Diagram: 03/24/17 0450 03/24/17 0450 Other Results Laboratory Tests Test 03/24/17 04:50 White Blood Count 7.3 TH/MM3 Red Blood Count 2.85 MIL/MM3 Hemoglobin 9.1 GM/DL Hematocrit 27.5 % Mean Corpuscular Volume 96.5 FL Mean Corpuscular Hemoglobin 32.0 PG Mean Corpuscular Hemoglobin 33.2 % Concent Red Cell Distribution Width 16.6 % Platelet Count 113 TH/MM3 Mean Platelet Volume 8.6 FL Neutrophils (%) (Auto) 77.9 % Lymphocytes (%) (Auto) 14.6 % Monocytes (%) (Auto) 6.0 % Eosinophils (%) (Auto) 1.5 % Basophils (%) (Auto) 0.0 % Neutrophils # (Auto) 5.7 TH/MM3 Lymphocytes # (Auto) 1.1 TH/MM3 Monocytes # (Auto) 0.4 TH/MM3 Eosinophils # (Auto) 0.1 TH/MM3 Basophils # (Auto) 0.0 TH/MM3 CBC Comment DIFF FINAL Differential Comment Sodium Level 146 MEQ/L Potassium Level 3.8 MEQ/L Chloride Level 110 MEQ/L Carbon Dioxide Level 29.8 MEQ/L Anion Gap 6 MEQ/L Blood Urea Nitrogen 34 MG/DL Creatinine 0.56 MG/DL Estimat Glomerular Filtration 103 ML/MIN Rate Random Glucose 118 MG/DL Calcium Level 8.0 MG/DL Phosphorus Level 1.3 MG/DL Magnesium Level 2.0 MG/DL Imaging Last Impressions Chest X-Ray 03/21/17 0000 Signed Impressions: Service Date/Time: Tuesday, March 21, 2017 13:21 - CONCLUSION: Improvement in the aeration of the lungs. Pelon Coelho MD Abdomen Ultrasound 03/16/17 0000 Signed Impressions: Service Date/Time: Thursday, March 16, 2017 20:35 - CONCLUSION: 1. Right renal cyst and multiple hepatic cysts. 2. Echogenic lesion in liver measures 1.8 cm likely hemangioma. Contrasted MRI may be warranted for confirmation. 3. Cholelithiasis. Evans Augustin MD Head CT 03/12/17 0000 Signed Impressions: Service Date/Time: Sunday, March 12, 2017 13:00 - CONCLUSION: 1. Cerebral atrophy and chronic ischemic small vessel vasculopathy. Evans Augustin MD Objective Remarks GENERAL: Patient is 82 yo on ventilator via trach SKIN: Warm and dry. HEAD: Normocephalic. EYES: No scleral icterus. No injection or drainage. NECK: Supple, trachea midline. No JVD or lymphadenopathy. Trach in place CARDIOVASCULAR: Regular rate and rhythm without murmurs, gallops, or rubs. RESPIRATORY: Breath sounds equal bilaterally. No accessory muscle use. GASTROINTESTINAL: Abdomen soft, non-tender, nondistended. +PEG tube MUSCULOSKELETAL: No cyanosis, or edema. Neuro: On vent via trach A/P Assessment and Plan NEURO: Acute encephalopathy Dementia Haldol 5mg iv q4h prn agitation melatonin 5mg po qhs for improved sleep-wake orientation. Continue home Aricept Encephalopathy most likely secondary to metabolic causes CT brain 03/12 :Cerebral atrophy and chronic ischemic small vessel vasculopathy. EEG showed mod. encephalopathy RESP: Acute respiratory failure- s/p trach 03/21 History of COPD Pulmonary artery hypertension Continue with vent support and keep sat >92% Ventilator bundle. DuoNeb scheduled and when necessary SBT trials as carley Pulm toilet, trach care CV: NSTEMI Cardiogenic shock- persistent, severe Acute systolic heart failure Lactic acidosis Ischemic cardiomyopathy with ejection fraction 15-20% Moderate to severe mitral and tricuspid regurgitation History of A. fib s/p 2.5L bolus 03/11. Ejection fraction 15-20% , in comparison to echocardiogram on 03/04/17 EF 40% Off all pressors keep MAP>65mmHg Amiodarone 200mg daily started by Dr. Keys, Digoxin 0.125mg daily on hold , Dig. level 2.1 yesterday check level today Lactic acid trending down 1.9 03/14 GI: IV Protonix 40mg BID s/p transfusion 1unit PRBC, GI is following. On tube feeds- Glucerna 1.5@45ml/hr On Reglan 5mg IV Q8 : acute kidney injury- secondary to cardiogenic shock Monitor renal function , I/O's, electrolytes replacement per protocol. Will need Phos placement today IVF D51/2@NS@42l/hr, place on Free water 250ml Q8, monitor sodium level. ID: Severe sepsis- resolved. UTI 03/11 Urine culture growing Soledad and group D enterococcus(VRE) 03/14 Urine cx: C. Albicans Off abx- monitor for signs of infections ( Fever, WBC) ID is following- Dr. Domínguez HEME: Monitor CBC, CMP, coags s/p [id number] PRBC 03/14 ENDO: SSI for glycemic control. on D5NS@42ml/hr for hypoglycemia Electrolyte replacement protocol PROPH: Bilateral lower extremity SCDs. SQ Heparin, Protonix LINES: Left subclavian central line, Right Femoral Art line- placed 03/12.. d/c lines and place peripheral IV;s Case manage eval for placement Palliative care following Deepthi Griffiths MD Mar 24, 2017 07:54 Deepthi Griffiths MD Mar 24, 2017 07:54
[2017-03-24] MEDS: FREE WATER G-TUBE SCH ×2 (08:00→16:00)
[2017-03-24] MEDS: CHLORHEXIDINE 0.12% (ORAL KIT) 15 ML CUP MT SCH ×2 (08:23→20:54)
[2017-03-24] MEDS: DOCUSATE SODIUM 50 MG/SENNA 8.6 MG TAB PO SCH (08:23)
[2017-03-24] MEDS: ASPIRIN 81 MG CHEW TAB CHEW SCH (08:23)
[2017-03-24] MEDS: HEPARIN SODIUM - SQ 10,000 UNITS/ML VIAL SQ SCH ×2 (08:23→20:54)
[2017-03-24] MEDS: AMIODARONE 200 MG TAB OG-TUBE SCH (08:23)
[2017-03-24] MEDS: DEXT 5%-NACL 0.45% 1000 ML INJ 1,000 ML IV SCH (08:35)
[2017-03-24] MEDS: PANTOPRAZOLE SODIUM 40 MG VIAL IV PUSH SCH ×2 (08:35→20:54)
[2017-03-24] MEDS: MELATONIN 5 MG TAB PO SCH (20:54)
[2017-03-24] MEDS: DONEPEZIL HCL 5 MG TAB PO SCH (20:54)
[2017-03-25] VITALS (32 sets, daily range): BP systolic 108–146; BP diastolic 55–80; PULSE 71–122; RESP 12–32; TEMP 97.7–98.8; O2SAT 94–100
[2017-03-25] MEDS: INSULIN NovoLIN REGULAR SUPPLEMENTAL SCALE SQ SCH ×6 (01:00→21:00)
[2017-03-25] MEDS: CHLORHEXIDINE GLUCONATE 2 % 1 PACK (2 CLOTHS) TOP SCH (04:00)
[2017-03-25] MEDS: DOCUSATE SODIUM 50 MG/SENNA 8.6 MG TAB PO SCH ×3 (06:00→21:06)
[2017-03-25] MEDS: METOCLOPRAMIDE HCL 10 MG/2 ML VIAL IV PUSH SCH ×3 (06:00→21:07)
[2017-03-25 07:08] LABS: BICARBONATE 25.1 MEQ/L (21.0-32.0); POTASSIUM 4.3 MEQ/L (3.5-5.1)
[2017-03-25] MEDS: FREE WATER G-TUBE SCH ×3 (08:00→15:54)
[2017-03-25] MEDS: DEXT 5%-NACL 0.45% 1000 ML INJ 1,000 ML IV SCH (08:34)
[2017-03-25] MEDS: CHLORHEXIDINE 0.12% (ORAL KIT) 15 ML CUP MT SCH ×2 (08:34→21:05)
--- NOTE | 2017-03-25 10:57 | HHI.CCPN ---
Subjective Remarks/Hospital Course Patient is an 82-year-old female with past medical history significant for recurrent UTIs, atrial fibrillation, hypertension, dyslipidemia, dementia who was transferred from [place] emergency department after being diagnosed for NSTEMI. She presented with chest pain and EKG showed sinus tachycardia, and troponin was elevated at 4.43. Patient was given aspirin (by EMS) and started on IV heparin infusion. Patient was transferred to [facility] ICU per Dr. Keys's request. Other abnormal labs include BNP of 1330 and potassium of 3. Previous echo showed an ejection fraction of 45%. I evaluated the patient in the ICU. Appears in moderate distress, tachypneic, tachycardic, but denies chest pain (when asked in Ghanaian by RN). Patient was seen by Dr. Keys in the ICU, not a candidate for cardiac catheterization on interventions at this time. 2-D echo is pending. UA shows evidence of UTI. Started on cefepime and Diflucan (yeast present in UA). Repeat troponin and lactic acid pending at this time. SUBJ 03/12: I rounded on patient at about 0830 AM, patient was communicative tachypneic but not in severe distress. I was emergently called to the bedside at 10:30 AM patient was unresponsive agonal breathing with blood pressure 60/29 , bradycardic. Emergently started on dopamine. Patient was not protecting airway and I emergently intubated and placed on mechanical ventilation. An emergency left subclavian central line also placed. Levophed was added due to persistent hypotension. Patient appears to be in severe cardiogenic shock. EF 15 -20% down from 40% on 03/04/17. Patient also has moderate to severe MR, moderate to severe TR with moderate to severe pulmonary hypertension. I have discussed with Dr. Keys, she does not think patient is a candidate for any invasive therapy due to advanced age and comorbidities including dementia. I have updated daughter Cata 03/13: Remains intubated sedated critically ill. Remains on 3 pressors (dopamine , Neftali-Synephrine, milrinone). Urine output diminishing. Patient is in multiorgan failure prognosis poor. Family wants to continue full aggressive care palliative care is following. Urine culture showing group D enterococcus and Soledad. Cefepime discontinued Zosyn started along with vancomycin and continue Diflucan 03/14 Patient is sedated with versed and intubated. On Neosyn 200 mics and Milrinone. T: 100.0 last night. Off Dopamine 03/15 Patient remains intubated and sedated with Versed 5mg/hr, Nesoyn down 112 mics and on Milrinone. Afebrile. s/p transfusion 1unit PRBC yesterday. 03/16 No events overnight. Remains sedated with versed and intubated. On Neosyn and Milrinone. 03/17 Patient is intubated and sedated, Neosyn 100mics and Milrinone. Afebrile. 03/18 No events overnight. On Neosyn is down to 37 mics, Milrinone and sedated with Versed. Afebrile. 03/19: no changes. off pressors. remains on inotrops. remains in significant cariogenic shock and volume overload. still on versed. no improvements. off pathway. family wants aggressive care. 03/20: we have made no improvements to cardiogenic shock requiring inotropic therapy. off pathway. I had a long discussion with family and they still want aggressive care, stating "she has been closer to than this, and she always gets better." I talked about need for tracheostomy, and they are agreeable. 03/21 Patient remains intubated off sedation. Afebrile. For possible trach today. On Neosyn 30 mics and Milrinone. 03/22 Patient s/p trach and PEG tube placement yesterday. Neosyn down 10 mics, on Milrinone. 03/23 Patient is off Neosyn, on Milrinone. Tolerating tube feeds. 03/24 No events overnight. off all pressors. On PRVC with PEEP: 5 and FIO2 35%. Tolerated CPAP x 2 hrs yesterday 03/25 Patient is on CPAP PS 15, PEEP:5 and FIO2 35%. Afebrile. Tolerating tube feeds. Objective Vital Signs Date Time Temp Pulse Resp B/P Pulse Ox O2 Delivery O2 Flow Rate FiO2 03/25/17 08:00 35 03/25/17 08:00 100 03/25/17 08:00 81 03/25/17 04:00 98.7 16 116/67 Intake and Output 03/24/17 03/24/17 03/25/17 08:00 16:00 00:00 Intake Total 600 ml 1082 ml 729 ml Output Total 400 ml 400 ml 251 ml Balance 200 ml 682 ml 478 ml Result Diagram: 03/24/17 0450 03/25/17 0606 Other Results Laboratory Tests Test 03/25/17 06:06 Sodium Level 144 MEQ/L Potassium Level 4.3 MEQ/L Chloride Level 109 MEQ/L Carbon Dioxide Level 25.1 MEQ/L Anion Gap 10 MEQ/L Blood Urea Nitrogen 28 MG/DL Creatinine 0.46 MG/DL Estimat Glomerular Filtration 129 ML/MIN Rate Random Glucose 124 MG/DL Calcium Level 8.0 MG/DL Phosphorus Level 1.1 MG/DL Imaging Last Impressions Chest X-Ray 03/21/17 0000 Signed Impressions: Service Date/Time: Tuesday, March 21, 2017 13:21 - CONCLUSION: Improvement in the aeration of the lungs. Pelon Coelho MD Abdomen Ultrasound 03/16/17 0000 Signed Impressions: Service Date/Time: Thursday, March 16, 2017 20:35 - CONCLUSION: 1. Right renal cyst and multiple hepatic cysts. 2. Echogenic lesion in liver measures 1.8 cm likely hemangioma. Contrasted MRI may be warranted for confirmation. 3. Cholelithiasis. Evans Augustin MD Head CT 03/12/17 0000 Signed Impressions: Service Date/Time: Sunday, March 12, 2017 13:00 - CONCLUSION: 1. Cerebral atrophy and chronic ischemic small vessel vasculopathy. Evans Augustin MD Objective Remarks GENERAL: Patient is 82 yo on ventilator via trach SKIN: Warm and dry. HEAD: Normocephalic. EYES: No scleral icterus. No injection or drainage. NECK: Supple, trachea midline. No JVD or lymphadenopathy. Trach in place CARDIOVASCULAR: Regular rate and rhythm without murmurs, gallops, or rubs. RESPIRATORY: Breath sounds equal bilaterally. No accessory muscle use. GASTROINTESTINAL: Abdomen soft, non-tender, nondistended. +PEG tube MUSCULOSKELETAL: No cyanosis, or edema. Neuro: On vent via trach A/P Assessment and Plan NEURO: Acute encephalopathy Dementia Haldol 5mg iv q4h prn agitation melatonin 5mg po qhs for improved sleep-wake orientation. Continue home Aricept Encephalopathy most likely secondary to metabolic causes CT brain 03/12 :Cerebral atrophy and chronic ischemic small vessel vasculopathy. EEG showed mod. encephalopathy RESP: Acute respiratory failure- s/p trach 03/21 History of COPD Pulmonary artery hypertension Continue with vent support and keep sat >92% Ventilator bundle. DuoNeb scheduled and when necessary SBT trials as carley Pulm toilet, trach care CXR 03/21- improvements in aeration of lungs CV: NSTEMI Cardiogenic shock- persistent, severe Acute systolic heart failure Lactic acidosis Ischemic cardiomyopathy with ejection fraction 15-20% Moderate to severe mitral and tricuspid regurgitation History of A. fib s/p 2.5L bolus 03/11. Ejection fraction 15-20% , in comparison to echocardiogram on 03/04/17 EF 40% Off all pressors keep MAP>65mmHg Amiodarone 200mg daily started by Dr. Keys, Digoxin 0.125mg daily on hold , Dig. level 2.1 yesterday check level today Lactic acid trending down 1.9 03/14 GI: IV Protonix 40mg BID s/p transfusion 1unit PRBC, GI is following. On tube feeds- Glucerna 1.5@45ml/hr On Reglan 5mg IV Q8 : acute kidney injury- secondary to cardiogenic shock Monitor renal function , I/O's, electrolytes replacement per protocol. Will need Phos placement today IVF D51/2@NS@42l/hr, Free water 250ml Q8, monitor sodium level. ID: Severe sepsis- resolved. UTI 03/11 Urine culture growing Soledad and group D enterococcus(VRE) 03/14 Urine cx: C. Albicans Off abx- monitor for signs of infections ( Fever, WBC) ID is following- Dr. Domínguez HEME: Monitor CBC, CMP, coags s/p [id number] PRBC 03/14 ENDO: SSI for glycemic control. on D51/2NS@42ml/hr for hypoglycemia Electrolyte replacement protocol PROPH: Bilateral lower extremity SCDs. SQ Heparin, Protonix LINES: peripheral IV;s , central line d/c yesterday Case manage eval for placement Palliative care following Deepthi Griffiths MD Mar 25, 2017 10:57
[2017-03-25] MEDS: AMIODARONE 200 MG TAB OG-TUBE SCH (11:02)
[2017-03-25] MEDS: HEPARIN SODIUM - SQ 10,000 UNITS/ML VIAL SQ SCH ×2 (11:02→21:06)
[2017-03-25] MEDS: PANTOPRAZOLE SODIUM 40 MG VIAL IV PUSH SCH ×2 (11:02→21:06)
[2017-03-25] MEDS: ASPIRIN 81 MG CHEW TAB CHEW SCH (11:02)
[2017-03-25] MEDS: POTASSIUM PHOSPHATE MONOBASIC 500 MG TAB PO PRN ×2 (12:06→15:54)
[2017-03-25 12:44] LABS: BASOPHIL % 0.3 % (0.0-2.0); EOSINOPHIL # 0.2 TH/MM3 (0-0.4); EOSINOPHIL % 1.9 % (0.0-4.0); HEMATOCRIT 33.3 % (35.0-46.0); LYMPH % 24.4 % (9.0-44.0); LYMPHOCYTE # 2.4 TH/MM3 (1.0-4.8); MEAN CELL VOLUME 96.3 FL (80.0-100.0); MEAN CORPUSCULAR HEMOGLOBIN 32.3 PG (27.0-34.0); MEAN CORPUSCULAR HGB CONC 33.5 % (32.0-36.0); MONO % 12.5 % (0.0-8.0); NEUT % 60.9 % (16.0-70.0); PLATELET COUNT 73 TH/MM3 (150-450); RED BLOOD COUNT 3.46 MIL/MM3 (4.00-5.30); RED CELL DISTRIBUTION WIDTH 16.8 % (11.6-17.2); WHITE BLOOD COUNT 9.9 TH/MM3 (4.0-11.0)
[2017-03-25 12:45] LABS: HEMO FLAGS AUTO DIFF
[2017-03-25 13:23] LABS: PLATELET ESTIMATE SMEAR LOW (NORMAL); PLATELET MORPHOLOGY NORMAL (NORMAL); SCAN/DIFF AUTO DIFF CONFIRMED
--- NOTE | 2017-03-25 16:24 | PD.WCN.NOT ---
Wound Consult Description: Patient seen on [facility] for screening of nursing documentation Communicated with: JUWAN Sotelo Recommendation: Continue Calazime use to bilateral buttocks BID and PRN for moisture Additional Information: Patient seen on [facility] for left buttock abrasion per nursing documentation. Patient was positioned to her right side with assistance of JUWAN Sotelo. Bilateral buttocks are noted with blanching discoloration and remnants of barrier cream. There is a linear wound noted to left buttock measuring 1cm x 0.1cm x <0.1cm that appears to be partial thickness skin loss of friction and moisture relation with a red moist non granulating wound bed that was left open to air. Calazime was used to cover bilateral buttocks and 2 ultrasorbs were removed from underneath patient bottom to leave one pull up pad in place with jorge and fecal containment system noted. Patient was positioned to her left side prior to leaving room. Jodi Zayas [facility] Mar 25, 2017 16:24
[2017-03-25] MEDS: RESP: ALBUTEROL 2.5 MG/IPRATROPIUM 0.5 MG NEB (PRN) INH (19:35)
[2017-03-25] MEDS: MELATONIN 5 MG TAB PO SCH (21:06)
[2017-03-25] MEDS: DONEPEZIL HCL 5 MG TAB PO SCH (21:06)
[2017-03-26] VITALS (23 sets, daily range): BP systolic 99–129; BP diastolic 53–75; PULSE 81–129; RESP 12–34; TEMP 98.7–100.8; O2SAT 87–100
[2017-03-26] MEDS: INSULIN NovoLIN REGULAR SUPPLEMENTAL SCALE SQ SCH ×6 (01:00→21:00)
[2017-03-26] MEDS: POTASSIUM PHOSPHATE MONOBASIC 500 MG TAB PO PRN (02:30)
[2017-03-26] MEDS: CHLORHEXIDINE GLUCONATE 2 % 1 PACK (2 CLOTHS) TOP SCH ×2 (04:00→21:49)
[2017-03-26] MEDS: METOCLOPRAMIDE HCL 10 MG/2 ML VIAL IV PUSH SCH ×3 (04:56→21:47)
[2017-03-26] MEDS: FREE WATER G-TUBE SCH ×4 (08:00→21:49)
--- NOTE | 2017-03-26 08:15 | HHI.CCPN ---
Subjective Remarks/Hospital Course Patient is an 82-year-old female with past medical history significant for recurrent UTIs, atrial fibrillation, hypertension, dyslipidemia, dementia who was transferred from [facility] [place] emergency department after being diagnosed for NSTEMI. She presented with chest pain and EKG showed sinus tachycardia, and troponin was elevated at 4.43. Patient was given aspirin (by EMS) and started on IV heparin infusion. Patient was transferred to [facility] ICU per Dr. Keys's request. Other abnormal labs include BNP of 1330 and potassium of 3. Previous echo showed an ejection fraction of 45%. I evaluated the patient in the ICU. Appears in moderate distress, tachypneic, tachycardic, but denies chest pain (when asked in Latvian by RN). Patient was seen by Dr. Keys in the ICU, not a candidate for cardiac catheterization on interventions at this time. 2-D echo is pending. UA shows evidence of UTI. Started on cefepime and Diflucan (yeast present in UA). Repeat troponin and lactic acid pending at this time. SUBJ 03/12: I rounded on patient at about 0830 AM, patient was communicative tachypneic but not in severe distress. I was emergently called to the bedside at 10:30 AM patient was unresponsive agonal breathing with blood pressure 60/29 , bradycardic. Emergently started on dopamine. Patient was not protecting airway and I emergently intubated and placed on mechanical ventilation. An emergency left subclavian central line also placed. Levophed was added due to persistent hypotension. Patient appears to be in severe cardiogenic shock. EF 15 -20% down from 40% on 03/04/17. Patient also has moderate to severe MR, moderate to severe TR with moderate to severe pulmonary hypertension. I have discussed with Dr. Keys, she does not think patient is a candidate for any invasive therapy due to advanced age and comorbidities including dementia. I have updated daughter Cata 03/13: Remains intubated sedated critically ill. Remains on 3 pressors (dopamine , Neftali-Synephrine, milrinone). Urine output diminishing. Patient is in multiorgan failure prognosis poor. Family wants to continue full aggressive care palliative care is following. Urine culture showing group D enterococcus and Soledad. Cefepime discontinued Zosyn started along with vancomycin and continue Diflucan 03/14 Patient is sedated with versed and intubated. On Neosyn 200 mics and Milrinone. T: 100.0 last night. Off Dopamine 03/15 Patient remains intubated and sedated with Versed 5mg/hr, Nesoyn down 112 mics and on Milrinone. Afebrile. s/p transfusion 1unit PRBC yesterday. 03/16 No events overnight. Remains sedated with versed and intubated. On Neosyn and Milrinone. 03/17 Patient is intubated and sedated, Neosyn 100mics and Milrinone. Afebrile. 03/18 No events overnight. On Neosyn is down to 37 mics, Milrinone and sedated with Versed. Afebrile. 03/19: no changes. off pressors. remains on inotrops. remains in significant cariogenic shock and volume overload. still on versed. no improvements. off pathway. family wants aggressive care. 03/20: we have made no improvements to cardiogenic shock requiring inotropic therapy. off pathway. I had a long discussion with family and they still want aggressive care, stating "she has been closer to than this, and she always gets better." I talked about need for tracheostomy, and they are agreeable. 03/21 Patient remains intubated off sedation. Afebrile. For possible trach today. On Neosyn 30 mics and Milrinone. 03/22 Patient s/p trach and PEG tube placement yesterday. Neosyn down 10 mics, on Milrinone. 03/23 Patient is off Neosyn, on Milrinone. Tolerating tube feeds. 03/24 No events overnight. off all pressors. On PRVC with PEEP: 5 and FIO2 35%. Tolerated CPAP x 2 hrs yesterday 03/25 Patient is on CPAP PS 15, PEEP:5 and FIO2 35%. Afebrile. Tolerating tube feeds. 03/26 No events overnight. Tolerated CPAP trials x 8 hrs yesterday. Objective Vital Signs Date Time Temp Pulse Resp B/P Pulse Ox O2 Delivery O2 Flow Rate FiO2 03/26/17 06:00 107 03/26/17 04:01 100 35 03/26/17 04:00 98.8 21 119/73 Intake and Output 03/25/17 03/25/17 03/26/17 08:00 16:00 00:00 Intake Total 567 ml 1467 ml 702 ml Output Total 221 ml 650 ml 221 ml Balance 346 ml 817 ml 481 ml Result Diagram: 03/25/17 1215 03/26/17 0034 Other Results Laboratory Tests Test 03/25/17 03/26/17 12:15 00:34 White Blood Count 9.9 TH/MM3 Red Blood Count 3.46 MIL/MM3 Hemoglobin 11.2 GM/DL Hematocrit 33.3 % Mean Corpuscular Volume 96.3 FL Mean Corpuscular Hemoglobin 32.3 PG Mean Corpuscular Hemoglobin 33.5 % Concent Red Cell Distribution Width 16.8 % Platelet Count 73 TH/MM3 Mean Platelet Volume 9.1 FL Neutrophils (%) (Auto) 60.9 % Lymphocytes (%) (Auto) 24.4 % Monocytes (%) (Auto) 12.5 % Eosinophils (%) (Auto) 1.9 % Basophils (%) (Auto) 0.3 % Neutrophils # (Auto) 6.0 TH/MM3 Lymphocytes # (Auto) 2.4 TH/MM3 Monocytes # (Auto) 1.2 TH/MM3 Eosinophils # (Auto) 0.2 TH/MM3 Basophils # (Auto) 0.0 TH/MM3 CBC Comment AUTO DIFF Differential Comment AUTO DIFF CONFIRMED Platelet Estimate LOW Platelet Morphology Comment NORMAL Hematology Comments Sodium Level 144 MEQ/L Phosphorus Level 1.8 MG/DL Imaging Last Impressions Chest X-Ray 03/21/17 0000 Signed Impressions: Service Date/Time: Tuesday, March 21, 2017 13:21 - CONCLUSION: Improvement in the aeration of the lungs. Pelon Coelho MD Abdomen Ultrasound 03/16/17 0000 Signed Impressions: Service Date/Time: Thursday, March 16, 2017 20:35 - CONCLUSION: 1. Right renal cyst and multiple hepatic cysts. 2. Echogenic lesion in liver measures 1.8 cm likely hemangioma. Contrasted MRI may be warranted for confirmation. 3. Cholelithiasis. Evans Augustin MD Head CT 03/12/17 0000 Signed Impressions: Service Date/Time: Sunday, March 12, 2017 13:00 - CONCLUSION: 1. Cerebral atrophy and chronic ischemic small vessel vasculopathy. Evans Augustin MD Objective Remarks GENERAL: Patient is 82 yo on ventilator via trach SKIN: Warm and dry. HEAD: Normocephalic. EYES: No scleral icterus. No injection or drainage. NECK: Supple, trachea midline. No JVD or lymphadenopathy. Trach in place CARDIOVASCULAR: Regular rate and rhythm without murmurs, gallops, or rubs. RESPIRATORY: Breath sounds equal bilaterally. No accessory muscle use. GASTROINTESTINAL: Abdomen soft, non-tender, nondistended. +PEG tube MUSCULOSKELETAL: No cyanosis, or edema. Neuro: On vent via trach A/P Assessment and Plan NEURO: Acute encephalopathy Dementia Haldol 5mg iv q4h prn agitation melatonin 5mg po qhs for improved sleep-wake orientation. Continue home Aricept Encephalopathy most likely secondary to metabolic causes CT brain 03/12 :Cerebral atrophy and chronic ischemic small vessel vasculopathy. EEG showed mod. encephalopathy RESP: Acute respiratory failure- s/p trach 03/21 History of COPD Pulmonary artery hypertension Continue with vent support and keep sat >92% Ventilator bundle. DuoNeb scheduled and when necessary SBT trials as carley Pulm toilet, trach care CXR 03/21- improvements in aeration of lungs CV: NSTEMI Cardiogenic shock- persistent, severe Acute systolic heart failure Lactic acidosis Ischemic cardiomyopathy with ejection fraction 15-20% Moderate to severe mitral and tricuspid regurgitation History of A. fib s/p 2.5L bolus 03/11. Ejection fraction 15-20% , in comparison to echocardiogram on 03/04/17 EF 40% Monitor HR and BP keep MAP>65mmHg Amiodarone 200mg daily started by Dr. Keys, Lactic acid trending down 1.9 03/14 GI: IV Protonix 40mg BID s/p transfusion 1unit PRBC, GI is following. On tube feeds- Glucerna 1.5@45ml/hr On Reglan 5mg IV Q8 : acute kidney injury- secondary to cardiogenic shock Monitor renal function , I/O's, electrolytes replacement per protocol. Will need Phos placement today IVF D51/2@NS@42l/hr, Free water 250ml Q8, monitor sodium level. ID: Severe sepsis- resolved. UTI 03/11 Urine culture growing Soledad and group D enterococcus(VRE) 03/14 Urine cx: C. Albicans Off abx- monitor for signs of infections ( Fever, WBC) ID is following- Dr. Domínguez, check sputum cx, UA with cx HEME: Monitor CBC, CMP, coags s/p [id number] PRBC 03/14 ENDO: SSI for glycemic control. on D51/2NS@42ml/hr for hypoglycemia Electrolyte replacement protocol PROPH: Bilateral lower extremity SCDs. SQ Heparin, Protonix LINES: peripheral IV;s , Case manage eval for placement Palliative care following Deepthi Griffiths MD Mar 26, 2017 08:15
[2017-03-26] MEDS: HEPARIN SODIUM - SQ 10,000 UNITS/ML VIAL SQ SCH ×2 (09:00→21:00)
[2017-03-26] MEDS: ASPIRIN 81 MG CHEW TAB CHEW SCH (09:00)
[2017-03-26] MEDS: DEXT 5%-NACL 0.45% 1000 ML INJ 1,000 ML IV SCH (09:34)
[2017-03-26] MEDS: CHLORHEXIDINE 0.12% (ORAL KIT) 15 ML CUP MT SCH ×2 (09:50→20:00)
[2017-03-26] MEDS: DOCUSATE SODIUM 50 MG/SENNA 8.6 MG TAB PO SCH ×2 (09:51→21:47)
[2017-03-26] MEDS: PANTOPRAZOLE SODIUM 40 MG VIAL IV PUSH SCH ×2 (09:52→21:47)
[2017-03-26] MEDS: AMIODARONE 200 MG TAB OG-TUBE SCH (09:52)
[2017-03-26 10:18] LABS: AUTOMATED NEUTROPHIL # 13.6 TH/MM3 (1.8-7.7); BASOPHIL % 0.3 % (0.0-2.0); EOSINOPHIL # 0.2 TH/MM3 (0-0.4); EOSINOPHIL % 1.2 % (0.0-4.0); HEMATOCRIT 32.8 % (35.0-46.0); LYMPH % 10.1 % (9.0-44.0); LYMPHOCYTE # 1.7 TH/MM3 (1.0-4.8); MEAN CELL VOLUME 97.6 FL (80.0-100.0); MEAN CORPUSCULAR HEMOGLOBIN 31.7 PG (27.0-34.0); MEAN CORPUSCULAR HGB CONC 32.5 % (32.0-36.0); MONO % 7.4 % (0.0-8.0); PLATELET COUNT 76 TH/MM3 (150-450); RED BLOOD COUNT 3.36 MIL/MM3 (4.00-5.30); RED CELL DISTRIBUTION WIDTH 16.5 % (11.6-17.2); WHITE BLOOD COUNT 16.8 TH/MM3 (4.0-11.0)
[2017-03-26 10:25] LABS: HEMO FLAGS AUTO DIFF
[2017-03-26 10:43] LABS: BICARBONATE 25.3 MEQ/L (21.0-32.0); POTASSIUM 5.1 MEQ/L (3.5-5.1)
[2017-03-26 11:10] LABS: BANDS 7 % (0-6); EOSINOPHILS 1 % (0-4); NEUTROPHIL # MANUAL DIFF 14.4 TH/MM3 (1.8-7.7); POLYS (SEG NEUTROPHILS) 79 % (16-70); WBC DIFF SAMPLE 100
[2017-03-26 11:11] LABS: PLATELET ESTIMATE SMEAR LOW (NORMAL); PLATELET MORPHOLOGY ENLARGED (NORMAL)
[2017-03-26 11:12] LABS: OVALOCYTES 1+ (NORMAL)
[2017-03-26 11:14] LABS: SCAN/DIFF FINAL DIFF MANUAL
[2017-03-26 14:57] LABS: AUTOMATED NEUTROPHIL # 12.7 TH/MM3 (1.8-7.7); BASOPHIL % 0.2 % (0.0-2.0); EOSINOPHIL # 0.1 TH/MM3 (0-0.4); EOSINOPHIL % 0.8 % (0.0-4.0); HEMATOCRIT 27.8 % (35.0-46.0); HEMO FLAGS DIFF FINAL; LYMPH % 6.1 % (9.0-44.0); LYMPHOCYTE # 0.9 TH/MM3 (1.0-4.8); MEAN CELL VOLUME 96.9 FL (80.0-100.0); MEAN CORPUSCULAR HEMOGLOBIN 31.2 PG (27.0-34.0); MEAN CORPUSCULAR HGB CONC 32.2 % (32.0-36.0); MONO % 8.2 % (0.0-8.0); NEUT % 84.7 % (16.0-70.0); PLATELET COUNT 103 TH/MM3 (150-450); RED BLOOD COUNT 2.86 MIL/MM3 (4.00-5.30); RED CELL DISTRIBUTION WIDTH 16.6 % (11.6-17.2)
[2017-03-26 15:13] LABS: BICARBONATE 30.6 MEQ/L (21.0-32.0); POTASSIUM 4.9 MEQ/L (3.5-5.1)
[2017-03-26 16:39] LABS: BACTERIA, URINE FEW /hpf; BLOOD, URINE NEG (NEG); GLUCOSE,URINE NEG (NEG); KETONE, URINE NEG (NEG); MUCUS URINE FEW /lpf (OCC); NITRITE,URINE NEG (NEG); SQUAMOUS EPITHELIAL CELL URINE 1 /hpf (0-5); URIC ACID CRYSTALS, URINE MANY /hpf; URINE COLOR YELLOW (YELLW/STRAW)
[2017-03-26 16:44] LABS: COMMENT (UR) CATH-CULTURE IND; CULTURE IF INDICATED CATH CULTURE IND
[2017-03-26] MEDS: DONEPEZIL HCL 5 MG TAB PO SCH (21:47)
[2017-03-26] MEDS: MELATONIN 5 MG TAB PO SCH (21:47)
[2017-03-27] VITALS (29 sets, daily range): BP systolic 83–119; BP diastolic 50–77; PULSE 79–132; RESP 14–43; TEMP 98.3–99.4; O2SAT 91–100
[2017-03-27] MEDS: INSULIN NovoLIN REGULAR SUPPLEMENTAL SCALE SQ SCH ×5 (01:00→21:00)
--- NOTE | 2017-03-27 04:15 | RADRPT ---
EXAM DATE/TIME: 03/27/2017 03:11 [facility] COMPARISON: CHEST SINGLE AP, March 17, 2017, 9:37. CHEST SINGLE AP, March 21, 2017, 13:21. INDICATIONS : Shortness of breath MEDICAL HISTORY : Hypertension. SURGICAL HISTORY : None. ENCOUNTER: Subsequent ACUITY: 2 weeks PAIN SCORE: Non-responsive. LOCATION: Bilateral chest FINDINGS: A single AP portable semierect view of the chest was obtained and demonstrates interval removal of th e previously noted left subclavian central venous line. The tracheostomy tube remains in place. Hazy opacity remains at the lung bases right greater left. Heart size is mildly prominent. Atherosclerotic changes are present in the aorta. The bony thorax remains intact. CONCLUSION: 1. Interval removal of left subclavian central venous line. 2. Hazy opacity at both lung bases right greater than left. Jerry Shin MD on March 27, 2017 at 4:12 Board Certified Radiologist. This report was verified electronically.
[2017-03-27 05:12] LABS: AUTOMATED NEUTROPHIL # 8.9 TH/MM3 (1.8-7.7); BASOPHIL % 0.3 % (0.0-2.0); EOSINOPHIL # 0.1 TH/MM3 (0-0.4); EOSINOPHIL % 1.3 % (0.0-4.0); HEMATOCRIT 25.2 % (35.0-46.0); LYMPH % 7.9 % (9.0-44.0); LYMPHOCYTE # 0.9 TH/MM3 (1.0-4.8); MEAN CELL VOLUME 94.9 FL (80.0-100.0); MEAN CORPUSCULAR HEMOGLOBIN 31.4 PG (27.0-34.0); MEAN CORPUSCULAR HGB CONC 33.1 % (32.0-36.0); MONO % 8.4 % (0.0-8.0); NEUT % 82.1 % (16.0-70.0); PLATELET COUNT 82 TH/MM3 (150-450); RED BLOOD COUNT 2.65 MIL/MM3 (4.00-5.30); RED CELL DISTRIBUTION WIDTH 16.3 % (11.6-17.2); WHITE BLOOD COUNT 10.8 TH/MM3 (4.0-11.0)
[2017-03-27 05:14] LABS: HEMO FLAGS AUTO DIFF
[2017-03-27 05:20] LABS: BICARBONATE 27.6 MEQ/L (21.0-32.0); MAGNESIUM 1.9 MG/DL (1.5-2.5); POTASSIUM 5.1 MEQ/L (3.5-5.1)
[2017-03-27] MEDS: METOCLOPRAMIDE HCL 10 MG/2 ML VIAL IV PUSH SCH ×3 (06:38→23:08)
[2017-03-27 06:46] LABS: OVALOCYTES 1+ (NORMAL); PLATELET ESTIMATE SMEAR LOW (NORMAL); PLATELET MORPHOLOGY NORMAL (NORMAL); SCAN/DIFF AUTO DIFF CONFIRMED
[2017-03-27] MEDS: DEXT 5%-NACL 0.45% 1000 ML INJ 1,000 ML IV SCH (07:32)
[2017-03-27] MEDS: CHLORHEXIDINE 0.12% (ORAL KIT) 15 ML CUP MT SCH ×2 (07:32→23:07)
[2017-03-27] MEDS: FREE WATER G-TUBE SCH ×3 (07:32→23:17)
[2017-03-27] MEDS: RESP: ALBUTEROL 2.5 MG/IPRATROPIUM 0.5 MG NEB (PRN) INH ×2 (08:15→21:45)
[2017-03-27] MEDS: AMIODARONE 200 MG TAB OG-TUBE SCH (08:31)
[2017-03-27] MEDS: PANTOPRAZOLE SODIUM 40 MG VIAL IV PUSH SCH ×2 (08:31→23:07)
[2017-03-27] MEDS: DOCUSATE SODIUM 50 MG/SENNA 8.6 MG TAB PO SCH ×3 (08:32→23:03)
[2017-03-27] MEDS: ASPIRIN 81 MG CHEW TAB CHEW SCH (08:34)
[2017-03-27] MEDS: HEPARIN SODIUM - SQ 10,000 UNITS/ML VIAL SQ SCH ×2 (08:34→21:00)
[2017-03-27] MEDS ORDERED: METOPROLOL TARTRATE 5 MG/5 ML VIAL IV PUSH ONE (10:00)
--- NOTE | 2017-03-27 10:26 | HHI.CCPN ---
Subjective Remarks/Hospital Course Patient is an 82-year-old female with past medical history significant for recurrent UTIs, atrial fibrillation, hypertension, dyslipidemia, dementia who was transferred from [place] emergency department after being diagnosed for NSTEMI. She presented with chest pain and EKG showed sinus tachycardia, and troponin was elevated at 4.43. Patient was given aspirin (by EMS) and started on IV heparin infusion. Patient was transferred to [facility] ICU per Dr. Keys's request. Other abnormal labs include BNP of 1330 and potassium of 3. Previous echo showed an ejection fraction of 45%. I evaluated the patient in the ICU. Appears in moderate distress, tachypneic, tachycardic, but denies chest pain (when asked in Trinidadian by RN). Patient was seen by Dr. Keys in the ICU, not a candidate for cardiac catheterization on interventions at this time. 2-D echo is pending. UA shows evidence of UTI. Started on cefepime and Diflucan (yeast present in UA). Repeat troponin and lactic acid pending at this time. SUBJ 03/12: I rounded on patient at about 0830 AM, patient was communicative tachypneic but not in severe distress. I was emergently called to the bedside at 10:30 AM patient was unresponsive agonal breathing with blood pressure 60/29 , bradycardic. Emergently started on dopamine. Patient was not protecting airway and I emergently intubated and placed on mechanical ventilation. An emergency left subclavian central line also placed. Levophed was added due to persistent hypotension. Patient appears to be in severe cardiogenic shock. EF 15 -20% down from 40% on 03/04/17. Patient also has moderate to severe MR, moderate to severe TR with moderate to severe pulmonary hypertension. I have discussed with Dr. Keys, she does not think patient is a candidate for any invasive therapy due to advanced age and comorbidities including dementia. I have updated daughter Cata 03/13: Remains intubated sedated critically ill. Remains on 3 pressors (dopamine , Neftali-Synephrine, milrinone). Urine output diminishing. Patient is in multiorgan failure prognosis poor. Family wants to continue full aggressive care palliative care is following. Urine culture showing group D enterococcus and Soledad. Cefepime discontinued Zosyn started along with vancomycin and continue Diflucan 03/14 Patient is sedated with versed and intubated. On Neosyn 200 mics and Milrinone. T: 100.0 last night. Off Dopamine 03/15 Patient remains intubated and sedated with Versed 5mg/hr, Nesoyn down 112 mics and on Milrinone. Afebrile. s/p transfusion 1unit PRBC yesterday. 03/16 No events overnight. Remains sedated with versed and intubated. On Neosyn and Milrinone. 03/17 Patient is intubated and sedated, Neosyn 100mics and Milrinone. Afebrile. 03/18 No events overnight. On Neosyn is down to 37 mics, Milrinone and sedated with Versed. Afebrile. 03/19: no changes. off pressors. remains on inotrops. remains in significant cariogenic shock and volume overload. still on versed. no improvements. off pathway. family wants aggressive care. 03/20: we have made no improvements to cardiogenic shock requiring inotropic therapy. off pathway. I had a long discussion with family and they still want aggressive care, stating "she has been closer to than this, and she always gets better." I talked about need for tracheostomy, and they are agreeable. 03/21 Patient remains intubated off sedation. Afebrile. For possible trach today. On Neosyn 30 mics and Milrinone. 03/22 Patient s/p trach and PEG tube placement yesterday. Neosyn down 10 mics, on Milrinone. 03/23 Patient is off Neosyn, on Milrinone. Tolerating tube feeds. 03/24 No events overnight. off all pressors. On PRVC with PEEP: 5 and FIO2 35%. Tolerated CPAP x 2 hrs yesterday 03/25 Patient is on CPAP PS 15, PEEP:5 and FIO2 35%. Afebrile. Tolerating tube feeds. 03/26 No events overnight. Tolerated CPAP trials x 8 hrs yesterday. 03/27: In A. fib with RVR. No tolerating CPAP due to tachypnea. Chest x-ray shows right more than left basilar infiltrate probably effusion. IV metoprolol 2.5 mg 1 and 0.25 mg IV digoxin ordered. If rate not controlled plan on Cardizem infusion. May need thoracentesis Objective Vital Signs Date Time Temp Pulse Resp B/P Pulse Ox O2 Delivery O2 Flow Rate FiO2 03/27/17 08:16 100 35 03/27/17 07:00 101 20 106/64 03/27/17 04:00 98.9 Intake and Output 03/26/17 03/26/17 03/27/17 08:00 16:00 00:00 Intake Total 494 ml 916 ml 637 ml Output Total 250 ml 575 ml 725 ml Balance 244 ml 341 ml -88 ml Result Diagram: 03/27/17 0421 03/27/17 0421 Imaging Last Impressions Chest X-Ray 03/21/17 0000 Signed Impressions: Service Date/Time: Tuesday, March 21, 2017 13:21 - CONCLUSION: Improvement in the aeration of the lungs. Pelon Coelho MD Abdomen Ultrasound 03/16/17 0000 Signed Impressions: Service Date/Time: Thursday, March 16, 2017 20:35 - CONCLUSION: 1. Right renal cyst and multiple hepatic cysts. 2. Echogenic lesion in liver measures 1.8 cm likely hemangioma. Contrasted MRI may be warranted for confirmation. 3. Cholelithiasis. Evans Augustin MD Head CT 03/12/17 0000 Signed Impressions: Service Date/Time: Sunday, March 12, 2017 13:00 - CONCLUSION: 1. Cerebral atrophy and chronic ischemic small vessel vasculopathy. Evans Augustin MD Objective Remarks GENERAL: Patient is 82 yo on ventilator via trach SKIN: Warm and dry. HEAD: Normocephalic. EYES: No scleral icterus. No injection or drainage. NECK: Supple, trachea midline. No JVD or lymphadenopathy. Trach in place CARDIOVASCULAR: Afib with RVR without murmurs, gallops, or rubs. RESPIRATORY: Breath sounds equal bilaterally, diminished at bases. +ve accessory muscle use on the vent. GASTROINTESTINAL: Abdomen soft, non-tender, nondistended. +PEG tube MUSCULOSKELETAL: No cyanosis, or edema. Neuro: On vent via trach. Moves all extremities when sedation lightened A/P Assessment and Plan NEURO: Acute encephalopathy Dementia Haldol 5mg iv q4h prn agitation melatonin 5mg po qhs for improved sleep-wake orientation. Continue home Aricept Encephalopathy most likely secondary to metabolic causes CT brain 03/12 :Cerebral atrophy and chronic ischemic small vessel vasculopathy. EEG showed mod. encephalopathy RESP: Acute respiratory failure- s/p trach 03/21 History of COPD Pulmonary artery hypertension Continue with vent support and keep sat >92% Ventilator bundle. DuoNeb scheduled and when necessary SBT trials as carley Pulm toilet, trach care CXR 03/21- improvements in aeration of lungs CXR 03/27 Bilateral effsuions R >L CV: NSTEMI Atrial fibrillation with rapid ventricular rate Cardiogenic shock Acute systolic heart failure Lactic acidosis Ischemic cardiomyopathy with ejection fraction 15-20% Moderate to severe mitral and tricuspid regurgitation History of A. fib IV metoprolol 2.5 mg 1, IV digoxin 0.25 mg x 1. Resume daily digoxin 0.125 mg by mouth Amiodarone 200mg daily started by Dr. Keys, if rate is not controlled may need Cardizem or amiodarone infusion Ejection fraction 15-20% , in comparison to echocardiogram on 03/04/17 EF 40% Monitor HR and BP keep MAP>65mmHg Lactic acid trending down 1.9 03/14 GI: IV Protonix 40mg BID s/p transfusion 1unit PRBC, GI is following. On tube feeds- Glucerna 1.5@45ml/hr On Reglan 5mg IV Q8 : acute kidney injury- secondary to cardiogenic shock Monitor renal function , I/O's, electrolytes replacement per protocol. Will need Phos placement today IVF D51/2@NS@42l/hr-DC today, Free water 250ml Q8, monitor sodium level. ID: Severe sepsis- resolved. UTI 03/11 Urine culture growing Soledad and group D enterococcus(VRE) 03/14 Urine cx: C. Albicans Off abx- monitor for signs of infections ( Fever, WBC) ID is following- Dr. Domínguez, f/u sputum cx, UA with cx HEME: Monitor CBC, CMP, coags s/p [id number] PRBC 03/14 ENDO: SSI for glycemic control. on D51/2NS@42ml/hr for hypoglycemia Electrolyte replacement protocol PROPH: Bilateral lower extremity SCDs. SQ Heparin, Protonix LINES: peripheral IV;s , Level 3: Change in condition with A. fib with RVR and failure on CPAP trial. Chest x- ray shows bilateral infiltrates today right more than left probable effusions. Possible thoracentesis today Case manage eval for placement Palliative care following Duy Valdez MD Mar 27, 2017 10:26
[2017-03-27] MEDS ORDERED: DIGOXIN 0.5 MG/2 ML VIAL IV PUSH ONE (10:30)
[2017-03-27] MEDS: SODIUM PHOSPHATE INJ 30 MMOL in SODIUM CHLOR 0.9% 250 ML INJ 240 ML IV PRN (13:05)
--- NOTE | 2017-03-27 17:30 | HHI.HCPN ---
Telephone conversation with patient's daughter Cata Yin. Medical update provided. Patient not tolerating CPAP due to tachypnea, needing thoracentesis. Goals of care remain unchanged, daughter wishing to continue aggressive management. Goal to discharge to acute rehabilitation once clinically stable. Discussed with daughter that patient remains at a very high risk for further complications, continue decline and . Daughter verbalized understanding. CODE STATUS remains full code. Amy Turk Mar 27, 2017 17:30
[2017-03-27] MEDS ORDERED: MIDAZOLAM HCL 5 MG/ML VIAL (1 ML) IV ONE (17:45)
[2017-03-27] MEDS ORDERED: NOREPINEPHRINE-DEXTROSE DRIP 250 ML IV ONE (18:26)
--- NOTE | 2017-03-27 18:57 | PD.PROCEDR ---
Procedure Note Procedure Procedure: Ultrasound-guided right pigtail chest tube placement Indication: Large right pleural effusion A time-out was completed verifying correct patient, procedure, site, positioning. The patient's right lower chest was prepped and draped in a sterile manner after the appropriate infiltration level was confirmed by ultrasound. 1% lidocaine was used anesthetize the surrounding skin. A 10-blade scalpel used to make the incision. 18G needle was then introduced without difficulty and into the pleural space and yellow slightly cloudy appearing fluid was aspirated along with large amount of air (Prior thoracentesis attempt yielded air also). Guidewire was placed through the needle and the needle was removed. A 7 [place] dilator was used, followed by placement of 10 [place] pigtail catheter over the guidewire using Seldinger technique. Guidewire was removed and pigtail was connected to the Vacutainer, initial output 500 ML of yellow pleural fluid. There was 2+ air leak. A post-procedure chest x-ray was ordered and the fluid will be sent for several studies. Estimated Blood Loss: <3 ml. Duy Valdez MD Mar 27, 2017 18:57
--- NOTE | 2017-03-27 20:04 | RADRPT ---
EXAM DATE/TIME: 03/27/2017 19:00 [facility] COMPARISON: CHEST SINGLE AP, March 27, 2017, 3:11. INDICATIONS : Pigtail chest tube placement. MEDICAL HISTORY : Hypertension. SURGICAL HISTORY : None. ENCOUNTER: Subsequent ACUITY: 1 day PAIN SCORE: Non-responsive. LOCATION: Bilateral chest FINDINGS: Right pigtail chest catheter is present with lower right chest. The right hemidiaphragm is fairly we ll delineated. There is a 4 mm pneumothorax seen at the superolateral upper chest.. Dense consolida tion has developed in the left lower lung with loss of delineation of the entire left hemidiaphragm a nd air bronchograms. The heart is normal size. CONCLUSION: 1. Pigtail chest catheter lower right chest. 2. 4 mm right upper chest pneumothorax. 3. Interval development of lobar consolidation left lower lung. Toño Harper MD on March 27, 2017 at 19:59 Board Certified Radiologist. This report was verified electronically.
[2017-03-27] MEDS ORDERED: SODIUM CHLORID 0.9% 500 ML INJ 500 ML IV ONE (20:45)
[2017-03-27] MEDS: DIGOXIN 0.125 MG TAB PO SCH ×2 (21:00→23:03)
[2017-03-27] MEDS: MELATONIN 5 MG TAB PO SCH (21:00)
[2017-03-27] MEDS: DONEPEZIL HCL 5 MG TAB PO SCH ×2 (21:00→23:04)
[2017-03-27] MEDS: HYDROmorphone HCL PF 1 MG/ML VIAL IV PRN (22:04)
[2017-03-28] VITALS (22 sets, daily range): BP systolic 92–105; BP diastolic 50–63; PULSE 76–113; RESP 14–24; TEMP 97.8–102.7; O2SAT 100
[2017-03-28] MEDS: INSULIN NovoLIN REGULAR SUPPLEMENTAL SCALE SQ SCH ×6 (01:00→20:34)
[2017-03-28] MEDS: CHLORHEXIDINE GLUCONATE 2 % 1 PACK (2 CLOTHS) TOP SCH (04:00)
--- NOTE | 2017-03-28 05:35 | RADRPT ---
EXAM DATE/TIME: 03/28/2017 04:09 [facility] COMPARISON: CHEST SINGLE AP, March 27, 2017, 19:00. INDICATIONS : Evaluate for respiratory disease. MEDICAL HISTORY : Hypertension. SURGICAL HISTORY : None. ENCOUNTER: Subsequent ACUITY: 1 month PAIN SCORE: Non-responsive. LOCATION: chest FINDINGS: The cardiac silhouette is enlarged in transverse diameter. A tracheostomy tube is in place in the mid line. There is left lower lobe atelectasis versus pneumonia. There is no evidence of pneumothorax. T he right lung is free of acute parenchymal opacity. CONCLUSION: 1. Left lower lobe atelectasis versus pneumonia. There has been no significant change when compared t o the prior exam. Harvey Cheng MD on March 28, 2017 at 5:28 Board Certified Radiologist. This report was verified electronically.
[2017-03-28] MEDS: METOCLOPRAMIDE HCL 10 MG/2 ML VIAL IV PUSH SCH ×3 (06:22→20:32)
[2017-03-28 07:09] LABS: AUTOMATED NEUTROPHIL # 10.2 TH/MM3 (1.8-7.7); BASOPHIL # 0.1 TH/MM3 (0-0.2); BASOPHIL % 0.5 % (0.0-2.0); EOSINOPHIL # 0.1 TH/MM3 (0-0.4); EOSINOPHIL % 0.7 % (0.0-4.0); LYMPH % 7.4 % (9.0-44.0); LYMPHOCYTE # 0.9 TH/MM3 (1.0-4.8); MEAN CELL VOLUME 95.9 FL (80.0-100.0); MEAN CORPUSCULAR HEMOGLOBIN 31.8 PG (27.0-34.0); MEAN CORPUSCULAR HGB CONC 33.2 % (32.0-36.0); NEUT % 84.4 % (16.0-70.0); PLATELET COUNT 159 TH/MM3 (150-450); RED CELL DISTRIBUTION WIDTH 16.5 % (11.6-17.2); WHITE BLOOD COUNT 12.1 TH/MM3 (4.0-11.0)
[2017-03-28 07:11] LABS: HEMO FLAGS AUTO DIFF
[2017-03-28 07:27] LABS: ANION GAP 6 MEQ/L (5-15); BICARBONATE 27.6 MEQ/L (21.0-32.0); BLOOD UREA NITROGEN 28 MG/DL (7-18); CHLORIDE 105 MEQ/L (98-107); GLOMERULAR FILTRATION RATE 118 ML/MIN (>89); POTASSIUM 5.2 MEQ/L (3.5-5.1); SODIUM (NA) 139 MEQ/L (136-145)
[2017-03-28 07:28] LABS: ALT (GPT) 33 U/L (10-53); AST (GOT) 27 U/L (15-37)
[2017-03-28 07:30] LABS: ALKALINE PHOSPHATASE 77 U/L (45-117); TOTAL BILIRUBIN ADULT 0.3 MG/DL (0.2-1.0)
[2017-03-28] MEDS ORDERED: NOREPINEPHRINE 4 MG/D5W 250 ML IV SCH (07:45)
[2017-03-28] MEDS: CHLORHEXIDINE 0.12% (ORAL KIT) 15 ML CUP MT SCH ×2 (08:00→20:00)
[2017-03-28] MEDS: FREE WATER G-TUBE SCH ×2 (08:00→13:57)
[2017-03-28 08:05] LABS: BANDS 10 % (0-6); BASOPHILS 1 % (0-2); METAMYELOCYTES 1 % (0-1); MYELOCYTES 1 % (0-0); NEUTROPHIL # MANUAL DIFF 10.6 TH/MM3 (1.8-7.7); POLYS (SEG NEUTROPHILS) 76 % (16-70); WBC DIFF SAMPLE 100
[2017-03-28 08:06] LABS: PLATELET ESTIMATE SMEAR NORMAL (NORMAL); PLATELET MORPHOLOGY NORMAL (NORMAL); SCAN/DIFF FINAL DIFF MANUAL
--- NOTE | 2017-03-28 08:22 | HHI.CCPN ---
Subjective Remarks/Hospital Course Patient is an 82-year-old female with past medical history significant for recurrent UTIs, atrial fibrillation, hypertension, dyslipidemia, dementia who was transferred from [place] emergency department after being diagnosed for NSTEMI. She presented with chest pain and EKG showed sinus tachycardia, and troponin was elevated at 4.43. Patient was given aspirin (by EMS) and started on IV heparin infusion. Patient was transferred to [facility] ICU per Dr. Keys's request. Other abnormal labs include BNP of 1330 and potassium of 3. Previous echo showed an ejection fraction of 45%. I evaluated the patient in the ICU. Appears in moderate distress, tachypneic, tachycardic, but denies chest pain (when asked in Cameroonian by RN). Patient was seen by Dr. Keys in the ICU, not a candidate for cardiac catheterization on interventions at this time. 2-D echo is pending. UA shows evidence of UTI. Started on cefepime and Diflucan (yeast present in UA). Repeat troponin and lactic acid pending at this time. SUBJ 03/12: I rounded on patient at about 0830 AM, patient was communicative tachypneic but not in severe distress. I was emergently called to the bedside at 10:30 AM patient was unresponsive agonal breathing with blood pressure 60/29 , bradycardic. Emergently started on dopamine. Patient was not protecting airway and I emergently intubated and placed on mechanical ventilation. An emergency left subclavian central line also placed. Levophed was added due to persistent hypotension. Patient appears to be in severe cardiogenic shock. EF 15 -20% down from 40% on 03/04/17. Patient also has moderate to severe MR, moderate to severe TR with moderate to severe pulmonary hypertension. I have discussed with Dr. Keys, she does not think patient is a candidate for any invasive therapy due to advanced age and comorbidities including dementia. I have updated daughter Cata 03/13: Remains intubated sedated critically ill. Remains on 3 pressors (dopamine , Neftali-Synephrine, milrinone). Urine output diminishing. Patient is in multiorgan failure prognosis poor. Family wants to continue full aggressive care palliative care is following. Urine culture showing group D enterococcus and Soledad. Cefepime discontinued Zosyn started along with vancomycin and continue Diflucan 03/14 Patient is sedated with versed and intubated. On Neosyn 200 mics and Milrinone. T: 100.0 last night. Off Dopamine 03/15 Patient remains intubated and sedated with Versed 5mg/hr, Nesoyn down 112 mics and on Milrinone. Afebrile. s/p transfusion 1unit PRBC yesterday. 03/16 No events overnight. Remains sedated with versed and intubated. On Neosyn and Milrinone. 03/17 Patient is intubated and sedated, Neosyn 100mics and Milrinone. Afebrile. 03/18 No events overnight. On Neosyn is down to 37 mics, Milrinone and sedated with Versed. Afebrile. 03/19: no changes. off pressors. remains on inotrops. remains in significant cariogenic shock and volume overload. still on versed. no improvements. off pathway. family wants aggressive care. 03/20: we have made no improvements to cardiogenic shock requiring inotropic therapy. off pathway. I had a long discussion with family and they still want aggressive care, stating "she has been closer to than this, and she always gets better." I talked about need for tracheostomy, and they are agreeable. 03/21 Patient remains intubated off sedation. Afebrile. For possible trach today. On Neosyn 30 mics and Milrinone. 03/22 Patient s/p trach and PEG tube placement yesterday. Neosyn down 10 mics, on Milrinone. 03/23 Patient is off Neosyn, on Milrinone. Tolerating tube feeds. 03/24 No events overnight. off all pressors. On PRVC with PEEP: 5 and FIO2 35%. Tolerated CPAP x 2 hrs yesterday 03/25 Patient is on CPAP PS 15, PEEP:5 and FIO2 35%. Afebrile. Tolerating tube feeds. 03/26 No events overnight. Tolerated CPAP trials x 8 hrs yesterday. 03/27: In A. fib with RVR. No tolerating CPAP due to tachypnea. Chest x-ray shows right more than left basilar infiltrate probably effusion. IV metoprolol 2.5 mg 1 and 0.25 mg IV digoxin ordered. If rate not controlled plan on Cardizem infusion. May need thoracentesis 03/28 Patient is on Levophed 8 mics, spiked fever with T: 102.7. Patient had right sided thoracentesis followed by pigtail catheter placement. CXR post procedure showed 4mm right upper PTX. CXR this morning showed no evidence of PTX, LLL atelectasis vs consolidation. Objective Vital Signs Date Time Temp Pulse Resp B/P Pulse Ox O2 Delivery O2 Flow Rate FiO2 03/28/17 06:00 91 03/28/17 05:09 100 40 03/28/17 04:00 97.8 14 98/56 Intake and Output 03/27/17 03/27/17 03/28/17 08:00 16:00 00:00 Intake Total 628 ml 385 ml 1064 ml Output Total 375 ml 200 ml 1225 ml Balance 253 ml 185 ml -161 ml Result Diagram: 03/28/17 0609 03/28/17 0609 Other Results Laboratory Tests Test 03/28/17 06:09 White Blood Count 12.1 TH/MM3 Red Blood Count 2.40 MIL/MM3 Hemoglobin 7.6 GM/DL Hematocrit 23.0 % Mean Corpuscular Volume 95.9 FL Mean Corpuscular Hemoglobin 31.8 PG Mean Corpuscular Hemoglobin 33.2 % Concent Red Cell Distribution Width 16.5 % Platelet Count 159 TH/MM3 Mean Platelet Volume 11.5 FL Neutrophils (%) (Auto) 84.4 % Lymphocytes (%) (Auto) 7.4 % Monocytes (%) (Auto) 7.0 % Eosinophils (%) (Auto) 0.7 % Basophils (%) (Auto) 0.5 % Neutrophils # (Auto) 10.2 TH/MM3 Lymphocytes # (Auto) 0.9 TH/MM3 Monocytes # (Auto) 0.8 TH/MM3 Eosinophils # (Auto) 0.1 TH/MM3 Basophils # (Auto) 0.1 TH/MM3 CBC Comment AUTO DIFF Sodium Level 139 MEQ/L Potassium Level 5.2 MEQ/L Chloride Level 105 MEQ/L Carbon Dioxide Level 27.6 MEQ/L Anion Gap 6 MEQ/L Blood Urea Nitrogen 28 MG/DL Creatinine 0.50 MG/DL Estimat Glomerular Filtration 118 ML/MIN Rate Random Glucose 119 MG/DL Calcium Level 7.7 MG/DL Magnesium Level 2.0 MG/DL Total Bilirubin 0.3 MG/DL Aspartate Amino Transf 27 U/L (AST/SGOT) Alanine Aminotransferase 33 U/L (ALT/SGPT) Alkaline Phosphatase 77 U/L Total Protein 4.6 GM/DL Albumin 1.6 GM/DL Imaging Last Impressions Chest X-Ray 03/28/17 0600 Signed Impressions: Service Date/Time: Tuesday, March 28, 2017 04:09 - CONCLUSION: 1. Left lower lobe atelectasis versus pneumonia. There has been no significant change when compared to the prior exam. Harvey Cheng MD Abdomen Ultrasound 03/16/17 0000 Signed Impressions: Service Date/Time: Thursday, March 16, 2017 20:35 - CONCLUSION: 1. Right renal cyst and multiple hepatic cysts. 2. Echogenic lesion in liver measures 1.8 cm likely hemangioma. Contrasted MRI may be warranted for confirmation. 3. Cholelithiasis. Evans Augustin MD Head CT 03/12/17 0000 Signed Impressions: Service Date/Time: Sunday, March 12, 2017 13:00 - CONCLUSION: 1. Cerebral atrophy and chronic ischemic small vessel vasculopathy. Evans Augustin MD Objective Remarks GENERAL: Patient is 82 yo on ventilator via trach SKIN: Warm and dry. HEAD: Normocephalic. EYES: No scleral icterus. No injection or drainage. NECK: Supple, trachea midline. No JVD or lymphadenopathy. Trach in place CARDIOVASCULAR: Afib with RVR without murmurs, gallops, or rubs. RESPIRATORY: Breath sounds equal bilaterally, diminished at bases. +ve accessory muscle use on the vent. GASTROINTESTINAL: Abdomen soft, non-tender, nondistended. +PEG tube MUSCULOSKELETAL: No cyanosis, or edema. Neuro: On vent via trach. Moves all extremities when sedation lightened A/P Assessment and Plan NEURO: Acute encephalopathy Dementia melatonin 5mg po qhs for improved sleep-wake orientation. Continue home Aricept Encephalopathy most likely secondary to metabolic causes CT brain 03/12 :Cerebral atrophy and chronic ischemic small vessel vasculopathy. EEG showed mod. encephalopathy RESP: Acute respiratory failure- s/p trach 03/21 History of COPD Pulmonary artery hypertension Continue with vent support and keep sat >92% Ventilator bundle. DuoNeb scheduled and when necessary SBT trials as carley Pulm toilet, trach care s/p Right sided thoracentesis followed by pogtail catheter insertion - monitor CT drainage ( Drained 900ml in 24 hrs) CXR today no evidence of PTX, LLL atelectasis vs consolidation CV: NSTEMI Atrial fibrillation with rapid ventricular rate Cardiogenic shock Acute systolic heart failure Lactic acidosis Ischemic cardiomyopathy with ejection fraction 15-20% Moderate to severe mitral and tricuspid regurgitation History of A. fib Wean off Levophed keep MAP>65mmHg Amiodarone 200mg daily started by Dr. Keys, Dig 0.125mg daily Ejection fraction 15-20% , in comparison to echocardiogram on 03/04/17 EF 40% Monitor HR and BP keep MAP>65mmHg Lactic acid trending down 1.9 03/14 GI: IV Protonix 40mg BID s/p transfusion 1unit PRBC, GI is following. On tube feeds- Glucerna 1.5@45ml/hr On Reglan 5mg IV Q8 : acute kidney injury- secondary to cardiogenic shock Monitor renal function , I/O's, electrolytes replacement per protocol. Will need Phos placement today Free water 250ml Q8, monitor sodium level. d/c IVF ID: Severe sepsis- resolved. UTI 03/11 Urine culture growing Soledad and group D enterococcus(VRE) 03/14 Urine cx: C. Albicans Start Zosyn, give 1 dose of Vanco 1gram x1 panculture ( Blood, aputum, UA) spiked fever with T :102.7- monitor for signs of infections ( Fever, WBC) ID is following- Dr. Domínguez, michelle HEME: Monitor CBC, CMP, coags s/p [id number] PRBC 03/14 ENDO: SSI for glycemic control. o Electrolyte replacement protocol PROPH: Bilateral lower extremity SCDs. SQ Heparin, Protonix LINES: peripheral IV;s , Case manage eval for placement Palliative care following Level 3: Deepthi Griffiths MD Mar 28, 2017 08:22
[2017-03-28] MEDS: PIPERACIL-TAZO 4.5 GM PREMIX 100 ML IV SCH ×3 (08:53→20:20)
[2017-03-28] MEDS: AMIODARONE 200 MG TAB OG-TUBE SCH (08:53)
[2017-03-28] MEDS: DOCUSATE SODIUM 50 MG/SENNA 8.6 MG TAB PO SCH ×2 (08:53→20:22)
[2017-03-28] MEDS: ACETAMINOPHEN 325 MG TAB PO PRN (08:53)
[2017-03-28] MEDS: PANTOPRAZOLE SODIUM 40 MG VIAL IV PUSH SCH ×2 (08:54→20:21)
[2017-03-28] MEDS: ASPIRIN 81 MG CHEW TAB CHEW SCH (08:54)
[2017-03-28] MEDS: HEPARIN SODIUM - SQ 10,000 UNITS/ML VIAL SQ SCH ×2 (08:55→21:04)
[2017-03-28] MEDS ORDERED: SODIUM POLYSTYRENE SULFONATE SUSP 15 GM/60 ML CUP PO ONE (09:00)
[2017-03-28] MEDS ORDERED: VANCOMYCIN INJ 1,000 MG in SODIUM CHLOR 0.9% 250 ML INJ 250 ML IV ONE (10:00)
[2017-03-28 11:36] LABS: BACTERIA, URINE OCC /hpf; BLOOD, URINE NEG (NEG); GLUCOSE,URINE NEG (NEG); GRANULAR CAST, URINE 5 /lpf; KETONE, URINE NEG (NEG); MUCUS URINE FEW /lpf (OCC); NITRITE,URINE NEG (NEG); SQUAMOUS EPITHELIAL CELL URINE 6 /hpf (0-5); TRANSITIONAL EPI CELLS, URINE 1 /hpf; URINE COLOR YELLOW (YELLW/STRAW)
[2017-03-28 11:37] LABS: COMMENT (UR) CATH-CULTURE IND; CULTURE IF INDICATED CATH CULTURE IND
[2017-03-28] MEDS: RESP: ALBUTEROL 2.5 MG/IPRATROPIUM 0.5 MG NEB (PRN) INH (12:03)
[2017-03-28] MEDS: DONEPEZIL HCL 5 MG TAB PO SCH (20:21)
[2017-03-28] MEDS: DIGOXIN 0.125 MG TAB PO SCH (20:21)
[2017-03-28] MEDS: MELATONIN 5 MG TAB PO SCH (20:21)
[2017-03-29] VITALS (23 sets, daily range): BP systolic 77–102; BP diastolic 45–67; PULSE 71–97; RESP 14–18; TEMP 98.3–100; O2SAT 99–100
[2017-03-29] MEDS: ACETAMINOPHEN 325 MG TAB PO PRN ×2 (00:53→23:26)
[2017-03-29] MEDS: INSULIN NovoLIN REGULAR SUPPLEMENTAL SCALE SQ SCH ×6 (00:59→21:00)
[2017-03-29] MEDS: PIPERACIL-TAZO 4.5 GM PREMIX 100 ML IV SCH ×4 (03:08→22:29)
[2017-03-29 03:15] LABS: AUTOMATED NEUTROPHIL # 7.1 TH/MM3 (1.8-7.7); BASOPHIL % 0.5 % (0.0-2.0); EOSINOPHIL # 0.2 TH/MM3 (0-0.4); EOSINOPHIL % 1.8 % (0.0-4.0); LYMPH % 8.3 % (9.0-44.0); LYMPHOCYTE # 0.7 TH/MM3 (1.0-4.8); MEAN CELL VOLUME 96.8 FL (80.0-100.0); MEAN CORPUSCULAR HEMOGLOBIN 31.7 PG (27.0-34.0); MEAN CORPUSCULAR HGB CONC 32.8 % (32.0-36.0); MONO % 6.2 % (0.0-8.0); NEUT % 83.2 % (16.0-70.0); PLATELET COUNT 158 TH/MM3 (150-450); RED BLOOD COUNT 2.17 MIL/MM3 (4.00-5.30); RED CELL DISTRIBUTION WIDTH 16.5 % (11.6-17.2); WHITE BLOOD COUNT 8.5 TH/MM3 (4.0-11.0)
[2017-03-29 03:16] LABS: HEMO FLAGS DIFF FINAL
[2017-03-29] MEDS: CHLORHEXIDINE GLUCONATE 2 % 1 PACK (2 CLOTHS) TOP SCH (03:36)
[2017-03-29 03:44] LABS: BICARBONATE 31.2 MEQ/L (21.0-32.0); POTASSIUM 4.6 MEQ/L (3.5-5.1)
[2017-03-29] MEDS: METOCLOPRAMIDE HCL 10 MG/2 ML VIAL IV PUSH SCH ×3 (06:20→22:28)
--- NOTE | 2017-03-29 06:39 | RADRPT ---
EXAM DATE/TIME: 03/29/2017 04:55 [facility] COMPARISON: CHEST SINGLE AP, March 28, 2017, 4:09. INDICATIONS : Respiratory failure. MEDICAL HISTORY : None. SURGICAL HISTORY : None. ENCOUNTER: Subsequent ACUITY: 4 - 6 days PAIN SCORE: Non-responsive. LOCATION: Bilateral chest FINDINGS: The cardiac silhouette is enlarged in transverse diameter. A tracheostomy tube is in place in the mid line. A right chest tube is in place. There is no evidence of pneumothorax. The tube is kinked at the level of the diaphragm. There is left lower lobe atelectasis versus pneumonia. A small left sided ef fusion is present. CONCLUSION: 1. There is no evidence of pneumothorax. 2. Left lower lobe atelectasis versus pneumonia. There has been no significant change when compared t o the prior exam. Harvey Cheng MD on March 29, 2017 at 6:37 Board Certified Radiologist. This report was verified electronically.
[2017-03-29] MEDS: CHLORHEXIDINE 0.12% (ORAL KIT) 15 ML CUP MT SCH ×2 (08:00→20:00)
[2017-03-29] MEDS: FREE WATER G-TUBE SCH ×4 (08:00→23:30)
[2017-03-29] MEDS: HEPARIN SODIUM - SQ 10,000 UNITS/ML VIAL SQ SCH ×2 (09:48→22:28)
[2017-03-29] MEDS: ASPIRIN 81 MG CHEW TAB CHEW SCH (09:48)
[2017-03-29] MEDS: DOCUSATE SODIUM 50 MG/SENNA 8.6 MG TAB PO SCH ×2 (09:48→22:27)
[2017-03-29] MEDS: AMIODARONE 200 MG TAB OG-TUBE SCH (09:48)
[2017-03-29] MEDS: PANTOPRAZOLE SODIUM 40 MG VIAL IV PUSH SCH ×2 (09:49→22:28)
[2017-03-29] MEDS: HYDROmorphone HCL PF 1 MG/ML VIAL IV PRN (10:30)
--- NOTE | 2017-03-29 11:23 | HHI.CCPN ---
Subjective Remarks/Hospital Course Patient is an 82-year-old female with past medical history significant for recurrent UTIs, atrial fibrillation, hypertension, dyslipidemia, dementia who was transferred from [place] emergency department after being diagnosed for NSTEMI. She presented with chest pain and EKG showed sinus tachycardia, and troponin was elevated at 4.43. Patient was given aspirin (by EMS) and started on IV heparin infusion. Patient was transferred to [facility] ICU per Dr. Keys's request. Other abnormal labs include BNP of 1330 and potassium of 3. Previous echo showed an ejection fraction of 45%. I evaluated the patient in the ICU. Appears in moderate distress, tachypneic, tachycardic, but denies chest pain (when asked in Chadian by RN). Patient was seen by Dr. Keys in the ICU, not a candidate for cardiac catheterization on interventions at this time. 2-D echo is pending. UA shows evidence of UTI. Started on cefepime and Diflucan (yeast present in UA). Repeat troponin and lactic acid pending at this time. SUBJ 03/12: I rounded on patient at about 0830 AM, patient was communicative tachypneic but not in severe distress. I was emergently called to the bedside at 10:30 AM patient was unresponsive agonal breathing with blood pressure 60/29 , bradycardic. Emergently started on dopamine. Patient was not protecting airway and I emergently intubated and placed on mechanical ventilation. An emergency left subclavian central line also placed. Levophed was added due to persistent hypotension. Patient appears to be in severe cardiogenic shock. EF 15 -20% down from 40% on 03/04/17. Patient also has moderate to severe MR, moderate to severe TR with moderate to severe pulmonary hypertension. I have discussed with Dr. Keys, she does not think patient is a candidate for any invasive therapy due to advanced age and comorbidities including dementia. I have updated daughter Cata 03/13: Remains intubated sedated critically ill. Remains on 3 pressors (dopamine , Neftali-Synephrine, milrinone). Urine output diminishing. Patient is in multiorgan failure prognosis poor. Family wants to continue full aggressive care palliative care is following. Urine culture showing group D enterococcus and Soledad. Cefepime discontinued Zosyn started along with vancomycin and continue Diflucan 03/14 Patient is sedated with versed and intubated. On Neosyn 200 mics and Milrinone. T: 100.0 last night. Off Dopamine 03/15 Patient remains intubated and sedated with Versed 5mg/hr, Nesoyn down 112 mics and on Milrinone. Afebrile. s/p transfusion 1unit PRBC yesterday. 03/16 No events overnight. Remains sedated with versed and intubated. On Neosyn and Milrinone. 03/17 Patient is intubated and sedated, Neosyn 100mics and Milrinone. Afebrile. 03/18 No events overnight. On Neosyn is down to 37 mics, Milrinone and sedated with Versed. Afebrile. 03/19: no changes. off pressors. remains on inotrops. remains in significant cariogenic shock and volume overload. still on versed. no improvements. off pathway. family wants aggressive care. 03/20: we have made no improvements to cardiogenic shock requiring inotropic therapy. off pathway. I had a long discussion with family and they still want aggressive care, stating "she has been closer to than this, and she always gets better." I talked about need for tracheostomy, and they are agreeable. 03/21 Patient remains intubated off sedation. Afebrile. For possible trach today. On Neosyn 30 mics and Milrinone. 03/22 Patient s/p trach and PEG tube placement yesterday. Neosyn down 10 mics, on Milrinone. 03/23 Patient is off Neosyn, on Milrinone. Tolerating tube feeds. 03/24 No events overnight. off all pressors. On PRVC with PEEP: 5 and FIO2 35%. Tolerated CPAP x 2 hrs yesterday 03/25 Patient is on CPAP PS 15, PEEP:5 and FIO2 35%. Afebrile. Tolerating tube feeds. 03/26 No events overnight. Tolerated CPAP trials x 8 hrs yesterday. 03/27: In A. fib with RVR. No tolerating CPAP due to tachypnea. Chest x-ray shows right more than left basilar infiltrate probably effusion. IV metoprolol 2.5 mg 1 and 0.25 mg IV digoxin ordered. If rate not controlled plan on Cardizem infusion. May need thoracentesis 03/28 Patient is on Levophed 8 mics, spiked fever with T: 102.7. Patient had right sided thoracentesis followed by pigtail catheter placement. CXR post procedure showed 4mm right upper PTX. CXR this morning showed no evidence of PTX, LLL atelectasis vs consolidation. Subjective 03/29: MAXIMUM TEMPERATURE 100. Currently 99.0. Currently off norepinephrine drip. Did not tolerate CPAP trial today. Arousable and follows commands. Objective Vital Signs Date Time Temp Pulse Resp B/P Pulse Ox O2 Delivery O2 Flow Rate FiO2 03/29/17 10:00 90 03/29/17 08:02 100 40 03/29/17 08:00 99.7 14 100/63 Intake and Output 03/28/17 03/28/17 03/28/17 07:59 15:59 23:59 Intake Total 272 ml 1261 ml 605 ml Output Total 125 ml 1700 ml 450 ml Balance 147 ml -439 ml 155 ml Result Diagram: 03/29/17 0250 03/29/17 0250 Other Results Microbiology Date/Time Procedure Status Source Growth 03/28/17 11:10 Aerobic Blood Culture - Preliminary Resulted Blood Peripheral NO GROWTH IN 1 DAY 03/28/17 11:10 Anaerobic Blood Culture - Preliminary Resulted Blood Peripheral NO GROWTH IN 1 DAY 03/28/17 09:20 Urine Culture Received Urine Catheterized Urine Pending 03/28/17 09:20 Gram Stain - Final Resulted Sputum Endotracheal 03/28/17 09:20 Sputum Culture Resulted Sputum Endotracheal Pending 03/26/17 14:15 Urine Culture - Final Complete Urine Catheterized Urine Soledad [facility] Last Impressions Chest X-Ray 03/29/17 0000 Signed Impressions: Service Date/Time: Wednesday, March 29, 2017 04:55 - CONCLUSION: 1. There is no evidence of pneumothorax. 2. Left lower lobe atelectasis versus pneumonia. There has been no significant change when compared to the prior exam. Harvey Cheng MD Abdomen Ultrasound 03/16/17 0000 Signed Impressions: Service Date/Time: Thursday, March 16, 2017 20:35 - CONCLUSION: 1. Right renal cyst and multiple hepatic cysts. 2. Echogenic lesion in liver measures 1.8 cm likely hemangioma. Contrasted MRI may be warranted for confirmation. 3. Cholelithiasis. Evans F. Tocci, MD Head CT 03/12/17 0000 Signed Impressions: Service Date/Time: Sunday, March 12, 2017 13:00 - CONCLUSION: 1. Cerebral atrophy and chronic ischemic small vessel vasculopathy. Evans Augustin MD Objective Remarks GENERAL: Patient is 82 yo female on ventilator via trach SKIN: Warm and dry. No rash HEAD: Normocephalic. EYES: No scleral icterus. No injection or drainage. NECK: Supple, trachea midline. No JVD or lymphadenopathy. Trach in place CARDIOVASCULAR: Currently normal sinus rhythm. Without murmurs, gallops, or rubs. RESPIRATORY: Breath sounds equal bilaterally, diminished at bases. No accessory muscle use on the vent. Right chest tube -900 cc SS past 24 hours on 40 cm H2O GASTROINTESTINAL: Abdomen soft, non-tender, nondistended. +PEG tube MUSCULOSKELETAL: Trace bilateral upper and lower extremity peripheral edema Neuro: On vent via trach. Moves all extremities when sedation lightened. Follows commands. A/P Assessment and Plan NEURO/PSYCH: Acute toxic metabolic encephalopathy Dementia disorder NOS Melatonin 5mg po qhs for improved sleep-wake orientation. Continue home donepezil 5 mg at night Encephalopathy most likely secondary to metabolic causes a much improved CT brain 03/12 :Cerebral atrophy and chronic ischemic small vessel vasculopathy. EEG showed mod. encephalopathy Hydromorphone 0.5 mg IV every 4 hours when necessary pain RESP: Acute respiratory failure- s/p trach 03/21 History of COPD Pulmonary artery hypertension Right pneumothorax Continue with vent support and keep sat >92% Ventilator bundle. DuoNeb scheduled and when necessary SBT trials as carley Pulm toilet, trach care s/p Right sided thoracentesis followed by pogtail catheter insertion - monitor CT drainage ( Drained 900ml in 24 hrs) CXR today no evidence of PTX, LLL atelectasis vs consolidation CV: NSTEMI Atrial fibrillation with rapid ventricular rate Cardiogenic shock Acute systolic heart failure Lactic acidosis Ischemic cardiomyopathy with ejection fraction 15-20% Moderate to severe mitral and tricuspid regurgitation History of A. fib Currently off norepinephrine keep MAP>65mmHg Amiodarone 200mg daily started by Dr. Keys, Dig 0.125mg daily and recheck level in a.m. Ejection fraction 15-20% , in comparison to echocardiogram on 03/04/17 EF 40% Monitor HR and BP keep MAP>65mmHg Lactic acid trending down 1.9 03/14 GI: IV Protonix 40mg BID s/p transfusion 1unit PRBC, GI is following. On tube feeds-Suplena goal 50 ml/hr status post G-tube placement On Reglan 5mg IV Q8 : acute kidney injury- secondary to cardiogenic shock Monitor renal function , I/O's, electrolytes replacement per protocol. Will need Phos, potassium and magnesium placement today and recheck levels at 1800 hrs. Free water 250ml Q8, monitor sodium level. d/c IVF ID: Candiduria 03/11 Urine culture growing Soledad and group D enterococcus(VRE) 03/14 Urine cx: C. Albicans Continue Piperacillin/tazobactam, give 1 dose of Vanco 1gram x1 panculture ( Blood, aputum, UA) spiked fever with T :100- monitor for signs of infections ( Fever, WBC) ID has followed- Dr. Domínguez, signed off 03/22 HEME: Anemia Monitor CBC, CMP, coags s/p [id number] PRBC 03/14 and 03/29 ENDO: SSI for glycemic control. o Electrolyte replacement protocol PROPH: Bilateral lower extremity SCDs. SQ Heparin, Protonix LINES: peripheral IV;s , Case manage eval for placement Palliative care following Level 2: Tye Laughlin MD Mar 29, 2017 11:23
[2017-03-29] MEDS ORDERED: ALBUMIN HUMAN 25% 25 GM/100 ML BAGP IV ONE (12:00)
[2017-03-29] MEDS ORDERED: FUROSEMIDE 20 MG/2 ML VIAL IV PUSH ONE (12:00)
[2017-03-29 18:37] LABS: HEMATOCRIT 27.2 % (35.0-46.0); REVIEW FLAG FINAL
[2017-03-29] MEDS: DIGOXIN 0.125 MG TAB PO SCH (22:27)
[2017-03-29] MEDS: MELATONIN 5 MG TAB PO SCH (22:27)
[2017-03-29] MEDS: DONEPEZIL HCL 5 MG TAB PO SCH (22:27)
[2017-03-30] VITALS (17 sets, daily range): BP systolic 88–125; BP diastolic 51–86; PULSE 70–98; RESP 14–22; TEMP 97.5–99.3; O2SAT 100
[2017-03-30] MEDS: INSULIN NovoLIN REGULAR SUPPLEMENTAL SCALE SQ SCH ×6 (01:00→21:00)
[2017-03-30] MEDS: PIPERACIL-TAZO 4.5 GM PREMIX 100 ML IV SCH ×4 (03:18→22:02)
[2017-03-30] MEDS: CHLORHEXIDINE GLUCONATE 2 % 1 PACK (2 CLOTHS) TOP SCH (04:00)
--- NOTE | 2017-03-30 04:49 | RADRPT ---
EXAM DATE/TIME: 03/30/2017 03:44 [facility] COMPARISON: CHEST SINGLE AP, March 29, 2017, 4:55. INDICATIONS : Evaluate for pnuemothorax, left side chest tube MEDICAL HISTORY : None. SURGICAL HISTORY : None. ENCOUNTER: Subsequent ACUITY: 1 week PAIN SCORE: Non-responsive. LOCATION: Bilateral chest FINDINGS: The cardiac silhouette is enlarged in transverse diameter. A tracheostomy tube is in place in the mid line. There is bilateral lower lobe atelectasis versus pneumonia. No pleural effusions are identified . A right chest tube is in place. There is no evidence of pneumothorax. CONCLUSION: 1. There is no evidence of pneumothorax. 2. Bilateral lower lobe atelectasis versus pneumonia. There has been no significant change when juventino red to the prior exam. Harvey Cheng MD on March 30, 2017 at 4:47 Board Certified Radiologist. This report was verified electronically.
[2017-03-30] MEDS: METOCLOPRAMIDE HCL 10 MG/2 ML VIAL IV PUSH SCH ×3 (05:54→22:00)
[2017-03-30] MEDS: FREE WATER G-TUBE SCH ×2 (08:00→15:50)
[2017-03-30] MEDS: PANTOPRAZOLE SODIUM 40 MG VIAL IV PUSH SCH ×2 (10:02→22:02)
[2017-03-30] MEDS: ASPIRIN 81 MG CHEW TAB CHEW SCH (10:02)
[2017-03-30] MEDS: AMIODARONE 200 MG TAB OG-TUBE SCH (10:02)
[2017-03-30] MEDS: HEPARIN SODIUM - SQ 10,000 UNITS/ML VIAL SQ SCH ×2 (10:03→22:03)
[2017-03-30] MEDS: DOCUSATE SODIUM 50 MG/SENNA 8.6 MG TAB PO SCH ×2 (10:03→22:03)
[2017-03-30] MEDS: CHLORHEXIDINE 0.12% (ORAL KIT) 15 ML CUP MT SCH ×2 (10:04→20:00)
[2017-03-30] MEDS: ACETAMINOPHEN 325 MG TAB PO PRN (12:23)
--- NOTE | 2017-03-30 12:46 | HHI.CCPN ---
Subjective Remarks/Hospital Course Patient is an 82-year-old female with past medical history significant for recurrent UTIs, atrial fibrillation, hypertension, dyslipidemia, dementia who was transferred from [place] emergency department after being diagnosed for NSTEMI. She presented with chest pain and EKG showed sinus tachycardia, and troponin was elevated at 4.43. Patient was given aspirin (by EMS) and started on IV heparin infusion. Patient was transferred to [facility] ICU per Dr. Keys's request. Other abnormal labs include BNP of 1330 and potassium of 3. Previous echo showed an ejection fraction of 45%. I evaluated the patient in the ICU. Appears in moderate distress, tachypneic, tachycardic, but denies chest pain (when asked in Bahamian by RN). Patient was seen by Dr. Keys in the ICU, not a candidate for cardiac catheterization on interventions at this time. 2-D echo is pending. UA shows evidence of UTI. Started on cefepime and Diflucan (yeast present in UA). Repeat troponin and lactic acid pending at this time. SUBJ 03/12: I rounded on patient at about 0830 AM, patient was communicative tachypneic but not in severe distress. I was emergently called to the bedside at 10:30 AM patient was unresponsive agonal breathing with blood pressure 60/29 , bradycardic. Emergently started on dopamine. Patient was not protecting airway and I emergently intubated and placed on mechanical ventilation. An emergency left subclavian central line also placed. Levophed was added due to persistent hypotension. Patient appears to be in severe cardiogenic shock. EF 15 -20% down from 40% on 03/04/17. Patient also has moderate to severe MR, moderate to severe TR with moderate to severe pulmonary hypertension. I have discussed with Dr. Keys, she does not think patient is a candidate for any invasive therapy due to advanced age and comorbidities including dementia. I have updated daughter Cata 03/13: Remains intubated sedated critically ill. Remains on 3 pressors (dopamine , Neftali-Synephrine, milrinone). Urine output diminishing. Patient is in multiorgan failure prognosis poor. Family wants to continue full aggressive care palliative care is following. Urine culture showing group D enterococcus and Soledad. Cefepime discontinued Zosyn started along with vancomycin and continue Diflucan 03/14 Patient is sedated with versed and intubated. On Neosyn 200 mics and Milrinone. T: 100.0 last night. Off Dopamine 03/15 Patient remains intubated and sedated with Versed 5mg/hr, Nesoyn down 112 mics and on Milrinone. Afebrile. s/p transfusion 1unit PRBC yesterday. 03/16 No events overnight. Remains sedated with versed and intubated. On Neosyn and Milrinone. 03/17 Patient is intubated and sedated, Neosyn 100mics and Milrinone. Afebrile. 03/18 No events overnight. On Neosyn is down to 37 mics, Milrinone and sedated with Versed. Afebrile. 03/19: no changes. off pressors. remains on inotrops. remains in significant cariogenic shock and volume overload. still on versed. no improvements. off pathway. family wants aggressive care. 03/20: we have made no improvements to cardiogenic shock requiring inotropic therapy. off pathway. I had a long discussion with family and they still want aggressive care, stating "she has been closer to than this, and she always gets better." I talked about need for tracheostomy, and they are agreeable. 03/21 Patient remains intubated off sedation. Afebrile. For possible trach today. On Neosyn 30 mics and Milrinone. 03/22 Patient s/p trach and PEG tube placement yesterday. Neosyn down 10 mics, on Milrinone. 03/23 Patient is off Neosyn, on Milrinone. Tolerating tube feeds. 03/24 No events overnight. off all pressors. On PRVC with PEEP: 5 and FIO2 35%. Tolerated CPAP x 2 hrs yesterday 03/25 Patient is on CPAP PS 15, PEEP:5 and FIO2 35%. Afebrile. Tolerating tube feeds. 03/26 No events overnight. Tolerated CPAP trials x 8 hrs yesterday. 03/27: In A. fib with RVR. No tolerating CPAP due to tachypnea. Chest x-ray shows right more than left basilar infiltrate probably effusion. IV metoprolol 2.5 mg 1 and 0.25 mg IV digoxin ordered. If rate not controlled plan on Cardizem infusion. May need thoracentesis 03/28 Patient is on Levophed 8 mics, spiked fever with T: 102.7. Patient had right sided thoracentesis followed by pigtail catheter placement. CXR post procedure showed 4mm right upper PTX. CXR this morning showed no evidence of PTX, LLL atelectasis vs consolidation. 03/29: MAXIMUM TEMPERATURE 100. Currently 99.0. Currently off norepinephrine drip. Did not tolerate CPAP trial today. Arousable and follows commands. Subjective 03/30: Tmax this morning 99.3. Off all vasopressors. Tolerated PSV trial 2.5 hours today. Arousable and follows commands. Responds to Bahamian. Understanding Latvian Objective Vital Signs Date Time Temp Pulse Resp B/P Pulse Ox O2 Delivery O2 Flow Rate FiO2 03/30/17 12:27 100 35 03/30/17 12:00 98.9 73 15 109/63 Intake and Output 03/29/17 03/29/17 03/30/17 08:00 16:00 00:00 Intake Total 935 ml 1184 ml 473 ml Output Total 125 ml 380 ml 650 ml Balance 810 ml 804 ml -177 ml Result Diagram: 03/29/17 1810 03/29/17 0250 Other Results Microbiology Date/Time Procedure Status Source Growth 03/28/17 11:10 Aerobic Blood Culture - Preliminary Resulted Blood Peripheral NO GROWTH IN 2 DAYS 03/28/17 11:10 Anaerobic Blood Culture - Preliminary Resulted Blood Peripheral NO GROWTH IN 2 DAYS 03/28/17 09:20 Urine Culture - Preliminary Resulted Urine Catheterized Urine Yeast Species 03/28/17 09:20 Gram Stain - Final Complete Sputum Endotracheal 03/28/17 09:20 Sputum Culture - Final Complete Sputum Endotracheal HEAVY GROWTH NORMAL RESPIRATORY SHAWN 03/26/17 14:15 Urine Culture - Final Complete Urine Catheterized Urine Soledad [facility] Last Impressions Chest X-Ray 03/30/17 0600 Signed Impressions: Service Date/Time: Thursday, March 30, 2017 03:44 - CONCLUSION: 1. There is no evidence of pneumothorax. 2. Bilateral lower lobe atelectasis versus pneumonia. There has been no significant change when compared to the prior exam. Harvey Cheng MD Abdomen Ultrasound 03/16/17 0000 Signed Impressions: Service Date/Time: Thursday, March 16, 2017 20:35 - CONCLUSION: 1. Right renal cyst and multiple hepatic cysts. 2. Echogenic lesion in liver measures 1.8 cm likely hemangioma. Contrasted MRI may be warranted for confirmation. 3. Cholelithiasis. Evans Augustin MD Head CT 03/12/17 0000 Signed Impressions: Service Date/Time: Sunday, March 12, 2017 13:00 - CONCLUSION: 1. Cerebral atrophy and chronic ischemic small vessel vasculopathy. Evans Augustin MD Objective Remarks GENERAL: Patient is 82 yo female on ventilator via trach SKIN: Warm and dry. No rash HEAD: Normocephalic. EYES: No scleral icterus. No injection or drainage. NECK: Supple, trachea midline. No JVD or lymphadenopathy. Trach in place CARDIOVASCULAR: Currently normal sinus rhythm. Without murmurs, gallops, or rubs. RESPIRATORY: Breath sounds equal bilaterally, diminished at bases. No accessory muscle use on the vent. Right chest tube -900 cc SS past 24 hours on 40 cm H2O GASTROINTESTINAL: Abdomen soft, non-tender, nondistended. +PEG tube MUSCULOSKELETAL: Trace bilateral upper and lower extremity peripheral edema Neuro: On vent via trach. Moves all extremities when sedation lightened. Follows commands. A/P Assessment and Plan NEURO/PSYCH: Acute toxic metabolic encephalopathy Dementia disorder NOS Melatonin 5mg po qhs for improved sleep-wake orientation. Continue home donepezil 5 mg at night Encephalopathy most likely secondary to metabolic causes a much improved CT brain 03/12 :Cerebral atrophy and chronic ischemic small vessel vasculopathy. EEG showed mod. encephalopathy Hydromorphone 0.5 mg IV every 4 hours when necessary pain RESP: Acute respiratory failure- s/p trach 03/21 History of COPD Pulmonary artery hypertension Right pneumothorax Continue with vent support and keep sat >92% Ventilator bundle. DuoNeb scheduled and when necessary SBT trials as carley Pulm toilet, trach care s/p Right sided thoracentesis followed by pogtail catheter insertion - monitor CT drainage ( Drained 900ml in 24 hrs) CXR today no evidence of PTX, LLL atelectasis vs consolidation CV: NSTEMI Atrial fibrillation with rapid ventricular rate Cardiogenic shock Acute systolic heart failure Lactic acidosis Ischemic cardiomyopathy with ejection fraction 15-20% Moderate to severe mitral and tricuspid regurgitation History of A. fib Currently off norepinephrine keep MAP>65mmHg Amiodarone 200mg daily started by Dr. Keys, Dig 0.125mg daily and recheck level in a.m. Ejection fraction 15-20% , in comparison to echocardiogram on 03/04/17 EF 40% Monitor HR and BP keep MAP>65mmHg GI: IV pantoprazole 40mg BID s/p transfusion 1unit PRBC, GI is following. On tube feeds-Suplena goal 50 ml/hr status post G-tube placement On metoclopramide 5mg IV Q8 : acute kidney injury- secondary to cardiogenic shock Monitor renal function , I/O's, electrolytes replacement per protocol. Will need Phos, potassium and magnesium placement today and recheck levels at 1800 hrs. Free water 250ml Q8, monitor sodium level. d/c IVF ID: Candiduria 03/11 Urine culture growing Soledad and group D enterococcus(VRE) 03/14 Urine cx: C. Albicans Continue Piperacillin/tazobactam, give 1 dose of Vanco 1gram x1 panculture ( Blood, sputum, UA) spiked fever with T :100- monitor for signs of infections ( Fever, WBC) ID has followed- Dr. Domínguez, signed off 03/22 HEME: Anemia Monitor CBC, CMP, coags s/p [id number] PRBC 03/14 and 03/29 ENDO: SSI for glycemic control. o Electrolyte replacement protocol PROPH: Bilateral lower extremity SCDs. SQ Heparin, Protonix LINES: peripheral IV;s , Case manage eval for placement Palliative care following Level 2: Tye Laughlin MD Mar 30, 2017 12:46
[2017-03-30 15:54] LABS: HEMATOCRIT 30.6 % (35.0-46.0); MEAN CORPUSCULAR HEMOGLOBIN 31.2 PG (27.0-34.0); MEAN CORPUSCULAR HGB CONC 33.5 % (32.0-36.0); PLATELET COUNT 198 TH/MM3 (150-450); RED BLOOD COUNT 3.29 MIL/MM3 (4.00-5.30); REVIEW FLAG FINAL; WHITE BLOOD COUNT 7.3 TH/MM3 (4.0-11.0)
[2017-03-30 16:17] LABS: BICARBONATE 28.9 MEQ/L (21.0-32.0); POTASSIUM 4.2 MEQ/L (3.5-5.1)
[2017-03-30 16:31] LABS: DIGOXIN 1.6 NG/ML (0.8-2.0)
[2017-03-30] MEDS: POTASSIUM PHOSPHATE/SODIUM PHOSPHATE 250 MG TAB PO SCH ×2 (17:11→22:03)
[2017-03-30] MEDS: RESP: ALBUTEROL 2.5 MG/IPRATROPIUM 0.5 MG NEB (PRN) INH (19:38)
[2017-03-30] MEDS: MELATONIN 5 MG TAB PO SCH (22:03)
[2017-03-30] MEDS: DONEPEZIL HCL 5 MG TAB PO SCH (22:03)
[2017-03-30] MEDS: DIGOXIN 0.125 MG TAB PO SCH (22:03)
[2017-03-31] VITALS (19 sets, daily range): BP systolic 85–153; BP diastolic 49–96; PULSE 68–133; RESP 14–38; TEMP 96.8–100; O2SAT 96–100
[2017-03-31] MEDS: INSULIN NovoLIN REGULAR SUPPLEMENTAL SCALE SQ SCH ×6 (01:00→21:00)
[2017-03-31] MEDS: PIPERACIL-TAZO 4.5 GM PREMIX 100 ML IV SCH ×4 (03:52→22:46)
[2017-03-31] MEDS: CHLORHEXIDINE GLUCONATE 2 % 1 PACK (2 CLOTHS) TOP SCH (03:58)
--- NOTE | 2017-03-31 04:55 | RADRPT ---
EXAM DATE/TIME: 03/31/2017 03:12 [facility] COMPARISON: No previous studies available for comparison. INDICATIONS : Short of breath. MEDICAL HISTORY : None. SURGICAL HISTORY : None. ENCOUNTER: Subsequent ACUITY: 1 week PAIN SCORE: 0/10 LOCATION: Bilateral chest FINDINGS: Bilateral consolidation greatest in the lower lobes. Tracheostomy tube, aortic calcification and card iomegaly again noted.No significant change has occurred. CONCLUSION: No significant change has occurred. Av Meadows MD on March 31, 2017 at 4:54 Board Certified Radiologist. This report was verified electronically.
[2017-03-31] MEDS: POTASSIUM PHOSPHATE/SODIUM PHOSPHATE 250 MG TAB PO SCH (06:00)
[2017-03-31] MEDS: METOCLOPRAMIDE HCL 10 MG/2 ML VIAL IV PUSH SCH ×3 (06:00→22:48)
[2017-03-31 07:07] LABS: ALT (GPT) 57 U/L (10-53); ANION GAP 9 MEQ/L (5-15); AST (GOT) 39 U/L (15-37); BICARBONATE 28.8 MEQ/L (21.0-32.0); CHLORIDE 102 MEQ/L (98-107); GLOMERULAR FILTRATION RATE 99 ML/MIN (>89); HEMATOCRIT 27.4 % (35.0-46.0); MEAN CELL VOLUME 91.5 FL (80.0-100.0); MEAN CORPUSCULAR HEMOGLOBIN 31.4 PG (27.0-34.0); MEAN CORPUSCULAR HGB CONC 34.3 % (32.0-36.0); PLATELET COUNT 220 TH/MM3 (150-450); POTASSIUM 4.5 MEQ/L (3.5-5.1); RED CELL DISTRIBUTION WIDTH 15.7 % (11.6-17.2); SODIUM (NA) 140 MEQ/L (136-145); WHITE BLOOD COUNT 10.7 TH/MM3 (4.0-11.0)
[2017-03-31 07:09] LABS: ALKALINE PHOSPHATASE 157 U/L (45-117); TOTAL BILIRUBIN ADULT 0.4 MG/DL (0.2-1.0)
[2017-03-31 07:13] LABS: BLOOD UREA NITROGEN 32 MG/DL (7-18)
[2017-03-31 07:43] LABS: HEMO FLAGS AUTO DIFF
[2017-03-31 07:53] LABS: BANDS 17 % (0-6); EOSINOPHILS 3 % (0-4); NEUTROPHIL # MANUAL DIFF 7.8 TH/MM3 (1.8-7.7); PLATELET ESTIMATE SMEAR NORMAL (NORMAL); PLATELET MORPHOLOGY NORMAL (NORMAL); POLYS (SEG NEUTROPHILS) 56 % (16-70); SCAN/DIFF FINAL DIFF MANUAL; WBC DIFF SAMPLE 100
[2017-03-31 07:56] LABS: KERATOCYTES OCC (NORMAL)
[2017-03-31] MEDS ORDERED: SODIUM CHLORID 0.9% 500 ML INJ 500 ML IV ONE (08:00)
[2017-03-31] MEDS: FREE WATER G-TUBE SCH ×4 (08:00→22:48)
[2017-03-31] MEDS: CHLORHEXIDINE 0.12% (ORAL KIT) 15 ML CUP MT SCH ×2 (08:00→22:46)
--- NOTE | 2017-03-31 08:09 | HHI.CCPN ---
Subjective Remarks/Hospital Course Patient is an 82-year-old female with past medical history significant for recurrent UTIs, atrial fibrillation, hypertension, dyslipidemia, dementia who was transferred from [place] emergency department after being diagnosed for NSTEMI. She presented with chest pain and EKG showed sinus tachycardia, and troponin was elevated at 4.43. Patient was given aspirin (by EMS) and started on IV heparin infusion. Patient was transferred to [facility] ICU per Dr. Keys's request. Other abnormal labs include BNP of 1330 and potassium of 3. Previous echo showed an ejection fraction of 45%. I evaluated the patient in the ICU. Appears in moderate distress, tachypneic, tachycardic, but denies chest pain (when asked in Bangladeshi by RN). Patient was seen by Dr. Keys in the ICU, not a candidate for cardiac catheterization on interventions at this time. 2-D echo is pending. UA shows evidence of UTI. Started on cefepime and Diflucan (yeast present in UA). Repeat troponin and lactic acid pending at this time. SUBJ 03/12: I rounded on patient at about 0830 AM, patient was communicative tachypneic but not in severe distress. I was emergently called to the bedside at 10:30 AM patient was unresponsive agonal breathing with blood pressure 60/29 , bradycardic. Emergently started on dopamine. Patient was not protecting airway and I emergently intubated and placed on mechanical ventilation. An emergency left subclavian central line also placed. Levophed was added due to persistent hypotension. Patient appears to be in severe cardiogenic shock. EF 15 -20% down from 40% on 03/04/17. Patient also has moderate to severe MR, moderate to severe TR with moderate to severe pulmonary hypertension. I have discussed with Dr. Keys, she does not think patient is a candidate for any invasive therapy due to advanced age and comorbidities including dementia. I have updated daughter Cata 03/13: Remains intubated sedated critically ill. Remains on 3 pressors (dopamine , Neftali-Synephrine, milrinone). Urine output diminishing. Patient is in multiorgan failure prognosis poor. Family wants to continue full aggressive care palliative care is following. Urine culture showing group D enterococcus and Soledad. Cefepime discontinued Zosyn started along with vancomycin and continue Diflucan 03/14 Patient is sedated with versed and intubated. On Neosyn 200 mics and Milrinone. T: 100.0 last night. Off Dopamine 03/15 Patient remains intubated and sedated with Versed 5mg/hr, Nesoyn down 112 mics and on Milrinone. Afebrile. s/p transfusion 1unit PRBC yesterday. 03/16 No events overnight. Remains sedated with versed and intubated. On Neosyn and Milrinone. 03/17 Patient is intubated and sedated, Neosyn 100mics and Milrinone. Afebrile. 03/18 No events overnight. On Neosyn is down to 37 mics, Milrinone and sedated with Versed. Afebrile. 03/19: no changes. off pressors. remains on inotrops. remains in significant cariogenic shock and volume overload. still on versed. no improvements. off pathway. family wants aggressive care. 03/20: we have made no improvements to cardiogenic shock requiring inotropic therapy. off pathway. I had a long discussion with family and they still want aggressive care, stating "she has been closer to than this, and she always gets better." I talked about need for tracheostomy, and they are agreeable. 03/21 Patient remains intubated off sedation. Afebrile. For possible trach today. On Neosyn 30 mics and Milrinone. 03/22 Patient s/p trach and PEG tube placement yesterday. Neosyn down 10 mics, on Milrinone. 03/23 Patient is off Neosyn, on Milrinone. Tolerating tube feeds. 03/24 No events overnight. off all pressors. On PRVC with PEEP: 5 and FIO2 35%. Tolerated CPAP x 2 hrs yesterday 03/25 Patient is on CPAP PS 15, PEEP:5 and FIO2 35%. Afebrile. Tolerating tube feeds. 03/26 No events overnight. Tolerated CPAP trials x 8 hrs yesterday. 03/27: In A. fib with RVR. No tolerating CPAP due to tachypnea. Chest x-ray shows right more than left basilar infiltrate probably effusion. IV metoprolol 2.5 mg 1 and 0.25 mg IV digoxin ordered. If rate not controlled plan on Cardizem infusion. May need thoracentesis 03/28 Patient is on Levophed 8 mics, spiked fever with T: 102.7. Patient had right sided thoracentesis followed by pigtail catheter placement. CXR post procedure showed 4mm right upper PTX. CXR this morning showed no evidence of PTX, LLL atelectasis vs consolidation. 03/29: MAXIMUM TEMPERATURE 100. Currently 99.0. Currently off norepinephrine drip. Did not tolerate CPAP trial today. Arousable and follows commands. Subjective 03/30: Tmax this morning 99.3. Off all vasopressors. Tolerated PSV trial 2.5 hours today. Arousable and follows commands. Responds to Bangladeshi. Understanding Sinhala 03/31 No events overnight. On no sedation. Objective Vital Signs Date Time Temp Pulse Resp B/P Pulse Ox O2 Delivery O2 Flow Rate FiO2 03/31/17 06:00 85 03/31/17 04:00 35 03/31/17 04:00 97.1 14 98/55 100 Intake and Output 03/30/17 03/30/17 03/31/17 08:00 16:00 00:00 Intake Total 890 ml 558 ml 404 ml Output Total 150 ml 265 ml 450 ml Balance 740 ml 293 ml -46 ml Result Diagram: 03/31/17 0610 03/31/17 0610 Other Results Laboratory Tests Test 03/30/17 03/31/17 14:40 06:10 White Blood Count 7.3 TH/MM3 10.7 TH/MM3 Red Blood Count 3.29 MIL/MM3 3.00 MIL/MM3 Hemoglobin 10.2 GM/DL 9.4 GM/DL Hematocrit 30.6 % 27.4 % Mean Corpuscular Volume 93.0 FL 91.5 FL Mean Corpuscular Hemoglobin 31.2 PG 31.4 PG Mean Corpuscular Hemoglobin 33.5 % 34.3 % Concent Red Cell Distribution Width 16.0 % 15.7 % Platelet Count 198 TH/MM3 220 TH/MM3 Mean Platelet Volume 10.1 FL 11.1 FL Sodium Level 138 MEQ/L 140 MEQ/L Potassium Level 4.2 MEQ/L 4.5 MEQ/L Chloride Level 102 MEQ/L 102 MEQ/L Carbon Dioxide Level 28.9 MEQ/L 28.8 MEQ/L Anion Gap 7 MEQ/L 9 MEQ/L Blood Urea Nitrogen 35 MG/DL 32 MG/DL Creatinine 0.66 MG/DL 0.58 MG/DL Estimat Glomerular Filtration 85 ML/MIN 99 ML/MIN Rate Random Glucose 100 MG/DL 102 MG/DL Calcium Level 8.1 MG/DL 7.8 MG/DL Phosphorus Level 2.4 MG/DL 2.6 MG/DL Magnesium Level 2.0 MG/DL 2.0 MG/DL Digoxin Level 1.6 NG/ML Neutrophils (%) (Auto) % Lymphocytes (%) (Auto) % Monocytes (%) (Auto) % Eosinophils (%) (Auto) % Basophils (%) (Auto) % Neutrophils # (Auto) TH/MM3 Lymphocytes # (Auto) TH/MM3 Monocytes # (Auto) TH/MM3 Eosinophils # (Auto) TH/MM3 Basophils # (Auto) TH/MM3 CBC Comment AUTO DIFF Hematology Comments Total Bilirubin 0.4 MG/DL Aspartate Amino Transf 39 U/L (AST/SGOT) Alanine Aminotransferase 57 U/L (ALT/SGPT) Alkaline Phosphatase 157 U/L Total Protein 4.8 GM/DL Albumin 2.0 GM/DL Imaging Last Impressions Chest X-Ray 03/31/17 0600 Signed Impressions: Service Date/Time: Friday, March 31, 2017 03:12 - CONCLUSION: No significant change has occurred. Av Meadows MD Abdomen Ultrasound 03/16/17 0000 Signed Impressions: Service Date/Time: Thursday, March 16, 2017 20:35 - CONCLUSION: 1. Right renal cyst and multiple hepatic cysts. 2. Echogenic lesion in liver measures 1.8 cm likely hemangioma. Contrasted MRI may be warranted for confirmation. 3. Cholelithiasis. Evans Augustin MD Head CT 03/12/17 0000 Signed Impressions: Service Date/Time: Sunday, March 12, 2017 13:00 - CONCLUSION: 1. Cerebral atrophy and chronic ischemic small vessel vasculopathy. Evans Augustin MD Objective Remarks GENERAL: Patient is 82 yo female on ventilator via trach SKIN: Warm and dry. No rash HEAD: Normocephalic. EYES: No scleral icterus. No injection or drainage. NECK: Supple, trachea midline. No JVD or lymphadenopathy. Trach in place CARDIOVASCULAR: Tachycardic, no murmurs, gallops, or rubs. RESPIRATORY: Breath sounds equal bilaterally, diminished at bases. No accessory muscle use on the vent. Right chest tube -900 cc SS past 24 hours on 40 cm H2O GASTROINTESTINAL: Abdomen soft, non-tender, nondistended. +PEG tube MUSCULOSKELETAL: Trace bilateral upper and lower extremity peripheral edema Neuro: On vent via trach. Moves all extremities when sedation lightened. Follows commands. A/P Assessment and Plan NEURO/PSYCH: Acute toxic metabolic encephalopathy Dementia disorder NOS Melatonin 5mg po qhs for improved sleep-wake orientation. Continue home donepezil 5 mg at night Encephalopathy most likely secondary to metabolic causes a much improved CT brain 03/12 :Cerebral atrophy and chronic ischemic small vessel vasculopathy. EEG showed mod. encephalopathy Hydromorphone 0.5 mg IV every 4 hours when necessary pain RESP: Acute respiratory failure- s/p trach 03/21 History of COPD Pulmonary artery hypertension Right pneumothorax Continue with vent support and keep sat >92% Ventilator bundle. DuoNeb scheduled and when necessary SBT trials as carley Pulm toilet, trach care s/p Right sided thoracentesis followed by pigtail catheter insertion - monitor CT drainage CXR today : b/l consolidation, trach in place CV: NSTEMI Atrial fibrillation with rapid ventricular rate Cardiogenic shock Acute systolic heart failure Lactic acidosis Ischemic cardiomyopathy with ejection fraction 15-20% Moderate to severe mitral and tricuspid regurgitation History of A. fib Monitor HR and BP keep MAP>65mmHg Place on Lopressor 12.5 mg BID, Amiodarone 200mg daily started by Dr. Keys, Dig 0.125mg daily 1.6 on 03/30 Ejection fraction 15-20% , in comparison to echocardiogram on 03/04/17 EF 40% Monitor HR and BP keep MAP>65mmHg GI: IV pantoprazole 40mg BID s/p transfusion 1unit PRBC, GI is following. On tube feeds-Suplena goal 50 ml/hr status post G-tube placement On metoclopramide 5mg IV Q8 : acute kidney injury- secondary to cardiogenic shock Monitor renal function , I/O's, electrolytes replacement per protocol. Free water 250ml Q8, monitor sodium level. ID: Candiduria 03/11 Urine culture growing Soledad and group D enterococcus(VRE) 03/14 Urine cx: C. Albicans Continue Piperacillin/tazobactam, monitor for signs of infections ( Fever, WBC) ID has followed- Dr. Domínguez, signed off 03/22 HEME: Anemia Monitor CBC, CMP, coags s/p [id number] PRBC 03/14 and 03/29 ENDO: SSI for glycemic control. Electrolyte replacement protocol PROPH: Bilateral lower extremity SCDs. SQ Heparin, Protonix LINES: peripheral IV;s , manager terminal is following for placement Palliative care following Level 3 Deepthi Griffiths MD Mar 31, 2017 08:09
[2017-03-31] MEDS ORDERED: METOPROLOL TARTRATE 5 MG/5 ML VIAL IV PUSH ONE (08:15)
[2017-03-31] MEDS ORDERED: PILL SPLITTER OTHER PRN (08:15)
[2017-03-31] MEDS ORDERED: BUMETANIDE INJ 1 MG/4 ML VIAL IV PUSH ONE (08:15)
[2017-03-31] MEDS: METOPROLOL TARTRATE 25 MG TAB PO SCH ×2 (09:00→21:00)
[2017-03-31] MEDS: DOCUSATE SODIUM 50 MG/SENNA 8.6 MG TAB PO SCH ×2 (10:06→21:00)
[2017-03-31] MEDS: HEPARIN SODIUM - SQ 10,000 UNITS/ML VIAL SQ SCH ×2 (10:06→22:47)
[2017-03-31] MEDS: PANTOPRAZOLE SODIUM 40 MG VIAL IV PUSH SCH ×2 (10:06→22:46)
[2017-03-31] MEDS: ASPIRIN 81 MG CHEW TAB CHEW SCH (10:06)
[2017-03-31] MEDS: AMIODARONE 200 MG TAB OG-TUBE SCH (10:06)
[2017-03-31] MEDS: ACETAMINOPHEN 325 MG TAB PO PRN (12:40)
--- NOTE | 2017-03-31 16:55 | HHI.HCPN ---
Reason for visit a. To assist with evaluation and management of symptoms including: Shortness of breath and debility. b. To assist medical decision maker(s) with: better understanding of current medical conditions; weighing benefits/burdens of medical treatment options; making medical treatment decisions. . (Amy Turk) Subjective/Interval History Mrs. Franco is a 82-year-old female with a past medical history of dementia originally diagnosed in 2013, recurrent UTIs, urinary retention, hypertension and atrial fibrillation. Patient presented to ED on 03/11/17 via EMS for evaluation of chest pain. Patient was transfer to [facility] for further management of non-STEMI, not a candidate for any invasive procedures. Echocardiogram showing EF of 20% from the echo on 03/04/17 showing EF of 45%. In addition, moderate to severe mitral valve regurgitation. Clinical course complicated by severe cardiac shock, intubation and mechanical ventilation in addition to vasopressors. Palliative care has been consulted for further clarifications of goals of care given patient's worsening clinical condition and poor prognosis. Patient seen in ICU. Status post tracheostomy and PEG tube placement on . Patient remains mechanically ventilated via tracheostomy, she underwent right-sided thoracentesis followed by pigtail chest tube placement on 03/27/17. Patient has been weaned off vasopressors. Tolerated SPV trials yesterday x 2.5 hours, did not tolerate today secondary to tachypnea and tachycardia. Patient is more awake and alert, off sedation. Alert to self. Attempting to communicate via mouthing words and nodding head to yes/no questions. Patient denied any pain, shortness of breath, nausea/vomiting or abdominal discomfort. Following some simple commands such as "squeeze my hand". Patient remains afebrile, stable hemodynamically. 35% FiO2, oxygen saturation in the high 90s. Laboratory work Today revealing WBC 10.7, Hgb is stable at 9.4 followed by transfusion of 2 PRBC on 03/29/17. Platelet count 220. UA 03/28/17 negative for nitrates, moderate leukocyte. Urine culture positive for Soledad. Telephone call to patient's daughter Cata Yin, left message in voicemail. As per bedside RN, daughter visited patient earlier today. Goals of care clear at this time, daughter electing to continue with aggressive care to include full code, patient being evaluated by [facility]. Daughter Cata to visit facility. Likely to discharge to acute rehabilitation for pulmonary rehabilitation once medically cleared. Case discussed with bedside RN Kandi. . Family/friend interactions See interval note. . (Amy Turk) Advance Directives Living Will: Copy in medical record Health Care Surrogate: Copy in medical record Durable Power of Forest Fire Control Officer: Copy in medical record (Amy Turk) Advance Directive Specifics Date completed: 03/28/2011 Health Care Surrogate(s): IRAM Yin. . Documented care wishes: Living will directing to withhold withdrawal treatment under the following circumstances: Condition that is irreversible or incurable without the administration of life sustaining treatments, expected to result in within a relative short period of time or in the setting of coma or persistent vegetative state. . Significant change in goals: Goals of care remain unchanged. . (Amy Turk) Objective Vital Signs Date Time Temp Pulse Resp B/P Pulse Ox O2 Delivery O2 Flow Rate FiO2 03/31/17 15:30 100 35 03/31/17 12:15 100 35 03/31/17 12:00 99.4 83 14 97/54 100 03/31/17 12:00 83 03/31/17 12:00 35 03/31/17 10:00 84 03/31/17 08:00 35 03/31/17 08:00 133 03/31/17 08:00 99.1 133 38 153/96 96 03/31/17 07:30 35 03/31/17 07:20 100 35 03/31/17 06:00 85 03/31/17 04:00 84 03/31/17 04:00 35 03/31/17 04:00 97.1 84 14 98/55 100 03/31/17 03:27 100 35 03/31/17 02:00 35 03/31/17 02:00 79 03/31/17 01:00 100 35 03/31/17 00:00 35 03/31/17 00:00 96.8 74 14 90/50 100 03/31/17 00:00 74 03/30/17 22:00 77 03/30/17 20:00 70 03/30/17 20:00 97.5 70 14 88/51 100 03/30/17 20:00 35 03/30/17 19:35 100 35 03/30/17 18:00 74 Intake & Output 03/31/17 03/31/17 07:00 19:00 Intake Total 896 ml Output Total 850 ml Balance 46 ml IV Total 244 ml Tube Feeding 652 ml Output Urine Total 450 ml Stool Total 400 ml Physical Exam CONSTITUTIONAL/GENERAL: This is an elderly, frail female who is mechanical ventilated via tracheostomy. TUBES/LINES/DRAINS: PIV's, rectal tube, SCDs, Abrams catheter. Tracheostomy. SKIN: No jaundice, rashes, or lesions. Ecchymoses on upper extremities. No wounds seen anteriorly. Not diaphoretic. HEAD: Atraumatic. Normocephalic. EYES: Pupils equal and round and reactive, sluggish. No scleral icterus. No injection or drainage. ENT: Hearing appears normal. Nose without bleeding or purulent drainage. Moist oral mucosa. NECK: Trachea midline. Supple. CARDIOVASCULAR: regular rate and rhythm, systolic murmur. Faint peripheral pulses. RESPIRATORY/CHEST: mechanical ventilation via tracheostomy. Diminished breath sounds bilaterally. GASTROINTESTINAL: Abdomen soft, nondistended. Bowel sounds present. GENITOURINARY: Without palpable bladder distension. Abrams catheter in place. MUSCULOSKELETAL: Edema to bilateral upper extremities. NEUROLOGICAL: Awake and alert to self. Attempting to communicate by mouthing words and nodding head to yes/no questions. Following simple commands. PSYCHIATRIC: Calm, pleasant. Smiling. . (Amy Turk) Diagnostic Tests Laboratory Laboratory Tests Test 03/29/17 03/29/17 03/29/17 03/29/17 02:50 03:21 11:39 18:10 White Blood Count 8.5 TH/MM3 (4.0-11.0) Red Blood Count 2.17 MIL/MM3 (4.00-5.30) Hemoglobin 6.9 GM/DL 9.5 GM/DL (11.6-15.3) (11.6-15.3) Hematocrit 21.0 % 27.2 % (35.0-46.0) (35.0-46.0) Mean Corpuscular Volume 96.8 FL (80.0-100.0) Mean Corpuscular Hemoglobin 31.7 PG (27.0-34.0) Mean Corpuscular Hemoglobin 32.8 % Concent (32.0-36.0) Red Cell Distribution Width 16.5 % (11.6-17.2) Platelet Count 158 TH/MM3 (150-450) Mean Platelet Volume 10.3 FL (7.0-11.0) Neutrophils (%) (Auto) 83.2 % (16.0-70.0) Lymphocytes (%) (Auto) 8.3 % (9.0-44.0) Monocytes (%) (Auto) 6.2 % (0.0-8.0) Eosinophils (%) (Auto) 1.8 % (0.0-4.0) Basophils (%) (Auto) 0.5 % (0.0-2.0) Neutrophils # (Auto) 7.1 TH/MM3 (1.8-7.7) Lymphocytes # (Auto) 0.7 TH/MM3 (1.0-4.8) Monocytes # (Auto) 0.5 TH/MM3 (0-0.9) Eosinophils # (Auto) 0.2 TH/MM3 (0-0.4) Basophils # (Auto) 0.0 TH/MM3 (0-0.2) CBC Comment DIFF FINAL Differential Comment Sodium Level 141 MEQ/L (136-145) Potassium Level 4.6 MEQ/L (3.5-5.1) Chloride Level 104 MEQ/L (98-107) Carbon Dioxide Level 31.2 MEQ/L (21.0-32.0) Anion Gap 6 MEQ/L (5-15) Blood Urea Nitrogen 28 MG/DL (7-18) Creatinine 0.57 MG/DL (0.50-1.00) Estimat Glomerular Filtration 101 ML/MIN Rate (>89) Random Glucose 96 MG/DL (74-106) Calcium Level 7.8 MG/DL (8.5-10.1) Blood Type O NEGATIVE O NEGATIVE Antibody Screen NEGATIVE Crossmatch Leukocyte-Reduced Leukocyte-Reduced Red Blood Red Blood Cells Cells Blood Bank Comment Test 03/30/17 03/31/17 14:40 06:10 White Blood Count 7.3 TH/MM3 10.7 TH/MM3 (4.0-11.0) (4.0-11.0) Red Blood Count 3.29 MIL/MM3 3.00 MIL/MM3 (4.00-5.30) (4.00-5.30) Hemoglobin 10.2 GM/DL 9.4 GM/DL (11.6-15.3) (11.6-15.3) Hematocrit 30.6 % 27.4 % (35.0-46.0) (35.0-46.0) Mean Corpuscular Volume 93.0 FL 91.5 FL (80.0-100.0) (80.0-100.0) Mean Corpuscular Hemoglobin 31.2 PG 31.4 PG (27.0-34.0) (27.0-34.0) Mean Corpuscular Hemoglobin 33.5 % 34.3 % Concent (32.0-36.0) (32.0-36.0) Red Cell Distribution Width 16.0 % 15.7 % (11.6-17.2) (11.6-17.2) Platelet Count 198 TH/MM3 220 TH/MM3 (150-450) (150-450) Mean Platelet Volume 10.1 FL 11.1 FL (7.0-11.0) (7.0-11.0) Sodium Level 138 MEQ/L 140 MEQ/L (136-145) (136-145) Potassium Level 4.2 MEQ/L 4.5 MEQ/L (3.5-5.1) (3.5-5.1) Chloride Level 102 MEQ/L 102 MEQ/L (98-107) (98-107) Carbon Dioxide Level 28.9 MEQ/L 28.8 MEQ/L (21.0-32.0) (21.0-32.0) Anion Gap 7 MEQ/L (5-15) 9 MEQ/L (5-15) Blood Urea Nitrogen 35 MG/DL (7-18) 32 MG/DL (7-18) Creatinine 0.66 MG/DL 0.58 MG/DL (0.50-1.00) (0.50-1.00) Estimat Glomerular Filtration 85 ML/MIN (>89) 99 ML/MIN (>89) Rate Random Glucose 100 MG/DL 102 MG/DL (74-106) (74-106) Calcium Level 8.1 MG/DL 7.8 MG/DL (8.5-10.1) (8.5-10.1) Phosphorus Level 2.4 MG/DL 2.6 MG/DL (2.5-4.9) (2.5-4.9) Magnesium Level 2.0 MG/DL 2.0 MG/DL (1.5-2.5) (1.5-2.5) Digoxin Level 1.6 NG/ML (0.8-2.0) Neutrophils (%) (Auto) % (16.0-70.0) Lymphocytes (%) (Auto) % (9.0-44.0) Monocytes (%) (Auto) % (0.0-8.0) Eosinophils (%) (Auto) % (0.0-4.0) Basophils (%) (Auto) % (0.0-2.0) Neutrophils # (Auto) TH/MM3 (1.8-7.7) Lymphocytes # (Auto) TH/MM3 (1.0-4.8) Monocytes # (Auto) TH/MM3 (0-0.9) Eosinophils # (Auto) TH/MM3 (0-0.4) Basophils # (Auto) TH/MM3 (0-0.2) CBC Comment AUTO DIFF Differential Total Cells 100 Counted Neutrophils % (Manual) 56 % (16-70) Band Neutrophils % 17 % (0-6) Lymphocytes % 15 % (9-44) Monocytes % 9 % (0-8) Eosinophils % 3 % (0-4) Neutrophils # (Manual) 7.8 TH/MM3 (1.8-7.7) Differential Comment FINAL DIFF MANUAL Platelet Estimate NORMAL (NORMAL) Platelet Morphology Comment NORMAL (NORMAL) Keratocytes OCC (NORMAL) Hematology Comments Total Bilirubin 0.4 MG/DL (0.2-1.0) Aspartate Amino Transf 39 U/L (15-37) (AST/SGOT) Alanine Aminotransferase 57 U/L (10-53) (ALT/SGPT) Alkaline Phosphatase 157 U/L (45-117) Total Protein 4.8 GM/DL (6.4-8.2) Albumin 2.0 GM/DL (3.4-5.0) (Amy Turk) Result Diagram: 03/31/17 0610 03/31/17 0610 Procedures * 03/27/17 -right-sided thoracentesis followed by pigtail chest tube placement * 03/21/17 -tracheostomy * 03/21/17 -removal of ET tube * 03/21/17 -PEG tube placement * 03/12/17 -intubation * 03/12/17 -central line placement . (Amy Turk) Assessment and Plan Disease Oriented Problem List: (1) Severe sepsis (2) Lactic acidosis (3) Encephalopathy acute (4) Urinary tract infection (5) NSTEMI (non-ST elevation myocardial infarction) (6) CHF (congestive heart failure) (7) Dementia (8) Atrial fibrillation Symptom Scale: (1) Shortness of breath 0-10 Scale: Unable to quantify Comment: Remains orally intubated on mechanical ventilation. (2) Debility 0-10 Scale: Unable to quantify Comment: Progressive, worsening since December. Pertinent Non-Medical Issues Psychosocial: . Originally from [place]. has 2 daughters. Spiritual: Anabaptism oliva. Legal: Advance directives completed. Ethical issues impacting care: No issues have been identified. . Important Contacts Daughter Cata Yin & Family friend Kristen Jolly [phone]. . Prognosis Mrs. Franco is a 82-year-old female with a past medical history of dementia originally diagnosed in 2013, recurrent UTIs, urinary retention, hypertension and atrial fibrillation. Patient with recent prolonged hospitalizations since December 2016. Admitted secondary to non-STEMI. Clinical course complicated by septic/cardiogenic shock, acute respiratory failure, lactic acidosis, congestive heart failure. Very poor prognosis for surviving this hospitalization given her multiple chronic comorbidities, recent prolonged acute hospitalizations, acute events, profound physical deconditioning and advanced age. . Code Status: Full Code Plan * CODE STATUS: Daughter electing for patient to remain FULL code. Risks and limitations of CPR were discussed in great detail with daughter. * HEALTHCARE DECISION-MAKING: Patient unable to participate in medical decision- making secondary to baseline dementia, confusion. Durable power of manager consumer insights for healthcare obtained, daughter Cata Yin is designated healthcare surrogate. * GOALS OF CARE: Daughter electing to continue with aggressive management to include full code. As per daughter, goal of therapy is to discharge patient to acute rehabilitation. Risks for further complications, clinical decline and has been previously discussed with daughter given acute events, multiple acute comorbidities, multiple recent acute hospitalizations, profound physical deconditioning and advanced age. Daughter verbalized understanding. * SYMPTOMS: = Shortness of breath, remains mechanically ventilated via tracheostomy. = Debility, progressive and worsened since December 2016. Likely to discharge to acute rehabilitation. * Case has been discussed with bedside RN Maurice. * Palliative care contact information has been provided to patient's daughters Kandi. * Palliative care will continue to follow-up as needed for further clarifications of goals of care as patient's clinical course continue to evolve. Goals are clear at this time; aggressive management. . (Amy Turk) Time Spent Total Floor Time (mins): 23 (Total time to include review of medical records, physical exam, attempts to communicate via telephone with patient's daughter and case discussion with bedside RN Kandi.) >50% Counseling/Coord of Care: Yes (Amy Turk) Attestation To help prompt me to consider important information that might be impacting today's encounter and assessment, information from prior notes written by myself or my colleagues may have been "brought forward" into today's note. My signature on this note, however, is an attestation that I personally performed the exam, history, and/or decision-making noted today, and, unless otherwise indicated, the interactions with patient, family, and staff as well as the review of records all occurred today. I also attest that the listed assessment and stated plan reflect my best clinical judgment today based on the combination of historical information, prior notes, and today's exam/ interactions. When time spent is documented, it refers only to time spent today by the signer, or if indicated, combined time spent today by collaborating physician/nurse practitioner. (Amy Turk) Collaborating MD Comments Chart reviewed. Case discussed with palliative care FIELD RETURN REPAIRER. Above note reviewed and I concur. . (Edmar Cabrera MD) Amy Turk Mar 31, 2017 16:55 Edmar Cabrera MD Jun 01, 2017 10:46
[2017-03-31] MEDS: DIGOXIN 0.125 MG TAB PO SCH (22:46)
[2017-03-31] MEDS: DONEPEZIL HCL 5 MG TAB PO SCH (22:46)
[2017-03-31] MEDS: MELATONIN 5 MG TAB PO SCH (22:47)
[2017-04-01] VITALS (30 sets, daily range): BP systolic 89–129; BP diastolic 52–83; PULSE 54–79; RESP 14–36; TEMP 97–99; O2SAT 98–100
[2017-04-01] MEDS: INSULIN NovoLIN REGULAR SUPPLEMENTAL SCALE SQ SCH ×5 (01:00→21:00)
[2017-04-01] MEDS: PIPERACIL-TAZO 4.5 GM PREMIX 100 ML IV SCH ×4 (02:16→21:43)
[2017-04-01] MEDS: METOCLOPRAMIDE HCL 10 MG/2 ML VIAL IV PUSH SCH ×3 (06:33→21:51)
[2017-04-01] MEDS: CHLORHEXIDINE GLUCONATE 2 % 1 PACK (2 CLOTHS) TOP SCH (06:33)
[2017-04-01 07:15] LABS: ALT (GPT) 48 U/L (10-53); ANION GAP 9 MEQ/L (5-15); AST (GOT) 30 U/L (15-37); BICARBONATE 29.8 MEQ/L (21.0-32.0); CHLORIDE 100 MEQ/L (98-107); GLOMERULAR FILTRATION RATE 93 ML/MIN (>89); POTASSIUM 4.1 MEQ/L (3.5-5.1); SODIUM (NA) 139 MEQ/L (136-145)
[2017-04-01 07:17] LABS: BLOOD UREA NITROGEN 33 MG/DL (7-18)
[2017-04-01 07:18] LABS: ALKALINE PHOSPHATASE 138 U/L (45-117); TOTAL BILIRUBIN ADULT 0.4 MG/DL (0.2-1.0)
[2017-04-01] MEDS: FREE WATER G-TUBE SCH (08:00)
[2017-04-01] MEDS: HEPARIN SODIUM - SQ 10,000 UNITS/ML VIAL SQ SCH ×2 (08:24→21:47)
[2017-04-01] MEDS: METOPROLOL TARTRATE 25 MG TAB PO SCH (08:24)
[2017-04-01] MEDS: CHLORHEXIDINE 0.12% (ORAL KIT) 15 ML CUP MT SCH ×2 (08:24→21:52)
[2017-04-01] MEDS: DOCUSATE SODIUM 50 MG/SENNA 8.6 MG TAB PO SCH ×2 (08:24→21:50)
[2017-04-01] MEDS: AMIODARONE 200 MG TAB OG-TUBE SCH (08:24)
[2017-04-01] MEDS: PANTOPRAZOLE SODIUM 40 MG VIAL IV PUSH SCH ×2 (08:24→21:47)
[2017-04-01] MEDS: ASPIRIN 81 MG CHEW TAB CHEW SCH (08:24)
--- NOTE | 2017-04-01 08:37 | HHI.CCPN ---
Subjective Remarks/Hospital Course Patient is an 82-year-old female with past medical history significant for recurrent UTIs, atrial fibrillation, hypertension, dyslipidemia, dementia who was transferred from [place] emergency department after being diagnosed for NSTEMI. She presented with chest pain and EKG showed sinus tachycardia, and troponin was elevated at 4.43. Patient was given aspirin (by EMS) and started on IV heparin infusion. Patient was transferred to [facility] ICU per Dr. Keys's request. Other abnormal labs include BNP of 1330 and potassium of 3. Previous echo showed an ejection fraction of 45%. I evaluated the patient in the ICU. Appears in moderate distress, tachypneic, tachycardic, but denies chest pain (when asked in Palestinian by RN). Patient was seen by Dr. Keys in the ICU, not a candidate for cardiac catheterization on interventions at this time. 2-D echo is pending. UA shows evidence of UTI. Started on cefepime and Diflucan (yeast present in UA). Repeat troponin and lactic acid pending at this time. SUBJ 03/12: I rounded on patient at about 0830 AM, patient was communicative tachypneic but not in severe distress. I was emergently called to the bedside at 10:30 AM patient was unresponsive agonal breathing with blood pressure 60/29 , bradycardic. Emergently started on dopamine. Patient was not protecting airway and I emergently intubated and placed on mechanical ventilation. An emergency left subclavian central line also placed. Levophed was added due to persistent hypotension. Patient appears to be in severe cardiogenic shock. EF 15 -20% down from 40% on 03/04/17. Patient also has moderate to severe MR, moderate to severe TR with moderate to severe pulmonary hypertension. I have discussed with Dr. Keys, she does not think patient is a candidate for any invasive therapy due to advanced age and comorbidities including dementia. I have updated daughter Cata 03/13: Remains intubated sedated critically ill. Remains on 3 pressors (dopamine , Neftali-Synephrine, milrinone). Urine output diminishing. Patient is in multiorgan failure prognosis poor. Family wants to continue full aggressive care palliative care is following. Urine culture showing group D enterococcus and Soledad. Cefepime discontinued Zosyn started along with vancomycin and continue Diflucan 03/14 Patient is sedated with versed and intubated. On Neosyn 200 mics and Milrinone. T: 100.0 last night. Off Dopamine 03/15 Patient remains intubated and sedated with Versed 5mg/hr, Nesoyn down 112 mics and on Milrinone. Afebrile. s/p transfusion 1unit PRBC yesterday. 03/16 No events overnight. Remains sedated with versed and intubated. On Neosyn and Milrinone. 03/17 Patient is intubated and sedated, Neosyn 100mics and Milrinone. Afebrile. 03/18 No events overnight. On Neosyn is down to 37 mics, Milrinone and sedated with Versed. Afebrile. 03/19: no changes. off pressors. remains on inotrops. remains in significant cariogenic shock and volume overload. still on versed. no improvements. off pathway. family wants aggressive care. 03/20: we have made no improvements to cardiogenic shock requiring inotropic therapy. off pathway. I had a long discussion with family and they still want aggressive care, stating "she has been closer to than this, and she always gets better." I talked about need for tracheostomy, and they are agreeable. 03/21 Patient remains intubated off sedation. Afebrile. For possible trach today. On Neosyn 30 mics and Milrinone. 03/22 Patient s/p trach and PEG tube placement yesterday. Neosyn down 10 mics, on Milrinone. 03/23 Patient is off Neosyn, on Milrinone. Tolerating tube feeds. 03/24 No events overnight. off all pressors. On PRVC with PEEP: 5 and FIO2 35%. Tolerated CPAP x 2 hrs yesterday 03/25 Patient is on CPAP PS 15, PEEP:5 and FIO2 35%. Afebrile. Tolerating tube feeds. 03/26 No events overnight. Tolerated CPAP trials x 8 hrs yesterday. 03/27: In A. fib with RVR. No tolerating CPAP due to tachypnea. Chest x-ray shows right more than left basilar infiltrate probably effusion. IV metoprolol 2.5 mg 1 and 0.25 mg IV digoxin ordered. If rate not controlled plan on Cardizem infusion. May need thoracentesis 03/28 Patient is on Levophed 8 mics, spiked fever with T: 102.7. Patient had right sided thoracentesis followed by pigtail catheter placement. CXR post procedure showed 4mm right upper PTX. CXR this morning showed no evidence of PTX, LLL atelectasis vs consolidation. 03/29: MAXIMUM TEMPERATURE 100. Currently 99.0. Currently off norepinephrine drip. Did not tolerate CPAP trial today. Arousable and follows commands. Subjective 03/30: Tmax this morning 99.3. Off all vasopressors. Tolerated PSV trial 2.5 hours today. Arousable and follows commands. Responds to Palestinian. Understanding Vietnamese 03/31 No events overnight. On no sedation. 04/01 No events overnight. On CPAP with PS 20, PEEP:5 and FIO2 35%. Afebrile. Objective Vital Signs Date Time Temp Pulse Resp B/P Pulse Ox O2 Delivery O2 Flow Rate FiO2 04/01/17 06:00 68 04/01/17 04:00 35 04/01/17 04:00 99.0 14 89/54 100 Intake and Output 03/31/17 03/31/17 04/01/17 08:00 16:00 00:00 Intake Total 492 ml 539 ml 0 ml Output Total 400 ml 1025 ml Balance 92 ml -486 ml 0 ml Result Diagram: 03/31/17 0610 04/01/17 0526 Other Results Laboratory Tests Test 04/01/17 05:26 Sodium Level 139 MEQ/L Potassium Level 4.1 MEQ/L Chloride Level 100 MEQ/L Carbon Dioxide Level 29.8 MEQ/L Anion Gap 9 MEQ/L Blood Urea Nitrogen 33 MG/DL Creatinine 0.61 MG/DL Estimat Glomerular Filtration 93 ML/MIN Rate Random Glucose 91 MG/DL Calcium Level 8.0 MG/DL Phosphorus Level 1.9 MG/DL Magnesium Level 2.0 MG/DL Total Bilirubin 0.4 MG/DL Aspartate Amino Transf 30 U/L (AST/SGOT) Alanine Aminotransferase 48 U/L (ALT/SGPT) Alkaline Phosphatase 138 U/L Total Protein 5.0 GM/DL Albumin 1.8 GM/DL Imaging Last Impressions Chest X-Ray 03/31/17 0600 Signed Impressions: Service Date/Time: Friday, March 31, 2017 03:12 - CONCLUSION: No significant change has occurred. Av Meadows MD Abdomen Ultrasound 03/16/17 0000 Signed Impressions: Service Date/Time: Thursday, March 16, 2017 20:35 - CONCLUSION: 1. Right renal cyst and multiple hepatic cysts. 2. Echogenic lesion in liver measures 1.8 cm likely hemangioma. Contrasted MRI may be warranted for confirmation. 3. Cholelithiasis. Evans Augustin MD Head CT 03/12/17 0000 Signed Impressions: Service Date/Time: Sunday, March 12, 2017 13:00 - CONCLUSION: 1. Cerebral atrophy and chronic ischemic small vessel vasculopathy. Evans Augustin MD Objective Remarks GENERAL: Patient is 82 yo female on ventilator via trach SKIN: Warm and dry. No rash HEAD: Normocephalic. EYES: No scleral icterus. No injection or drainage. NECK: Supple, trachea midline. No JVD or lymphadenopathy. Trach in place CARDIOVASCULAR: Tachycardic, no murmurs, gallops, or rubs. RESPIRATORY: Breath sounds equal bilaterally, diminished at bases. No accessory muscle use on the vent. Right chest tube -900 cc SS past 24 hours on 40 cm H2O GASTROINTESTINAL: Abdomen soft, non-tender, nondistended. +PEG tube MUSCULOSKELETAL: Trace bilateral upper and lower extremity peripheral edema Neuro: On vent via trach. Moves all extremities when sedation lightened. Follows commands. A/P Assessment and Plan NEURO/PSYCH: Acute toxic metabolic encephalopathy Dementia disorder NOS Melatonin 5mg po qhs for improved sleep-wake orientation. Continue home donepezil 5 mg at night Encephalopathy most likely secondary to metabolic causes a much improved CT brain 03/12 :Cerebral atrophy and chronic ischemic small vessel vasculopathy. EEG showed mod. encephalopathy Hydromorphone 0.5 mg IV every 4 hours when necessary pain RESP: Acute respiratory failure- s/p trach 03/21 History of COPD Pulmonary artery hypertension Right pneumothorax Continue with vent support and keep sat >92% Ventilator bundle. DuoNeb scheduled and when necessary SBT trials as carley Pulm toilet, trach care s/p Right sided thoracentesis followed by pigtail catheter insertion - monitor CT drainage CXR 03/31 : b/l consolidation, trach in place Check CXR today CV: NSTEMI Atrial fibrillation with rapid ventricular rate Cardiogenic shock Acute systolic heart failure Lactic acidosis Ischemic cardiomyopathy with ejection fraction 15-20% Moderate to severe mitral and tricuspid regurgitation History of A. fib Monitor HR and BP keep MAP>65mmHg On Lopressor 12.5 mg BID, Amiodarone 200mg daily started by Dr. Keys, Dig 0.125mg daily 1.6 on 03/30, start Lisinopril 2.5 mg daily Ejection fraction 15-20% , in comparison to echocardiogram on 03/04/17 EF 40% Monitor HR and BP keep MAP>65mmHg GI: IV pantoprazole 40mg BID s/p transfusion 1unit PRBC, GI is following. On tube feeds-Suplena goal 50 ml/hr status post G-tube placement On metoclopramide 5mg IV Q8 : acute kidney injury- secondary to cardiogenic shock Monitor renal function , I/O's, electrolytes replacement per protocol. d/c Free water. Will need phos replacement today Diurese with Bumex 1mg x1 ID: Candiduria 03/11 Urine culture growing Soledad and group D enterococcus(VRE) 03/14 Urine cx: C. Albicans Continue Piperacillin/tazobactam, monitor for signs of infections ( Fever, WBC) ID has followed- Dr. Domínguez, signed off 03/22 HEME: Anemia Monitor CBC, CMP, coags s/p [id number] PRBC 03/14 and 03/29 ENDO: SSI for glycemic control. Electrolyte replacement protocol PROPH: Bilateral lower extremity SCDs. SQ Heparin, Protonix LINES: peripheral IV;s , dental laboratory manager is following for placement Palliative care following Level 3 Deepthi Griffiths MD Apr 01, 2017 08:37
--- NOTE | 2017-04-01 09:10 | RADRPT ---
EXAM DATE/TIME: 04/01/2017 08:44 [facility] COMPARISON: CHEST SINGLE AP, March 31, 2017, 3:12. INDICATIONS : VDRF; Shortness of breath. MEDICAL HISTORY : None. SURGICAL HISTORY : None. ENCOUNTER: Subsequent ACUITY: 1 month PAIN SCORE: Non-responsive. LOCATION: Bilateral chest FINDINGS: Tracheostomy is stable. Bilateral primarily basilar and perihilar infiltrates persist unchanged. Card iac contour is grossly stable accounting for differences in projection CONCLUSION: Stable chest José Miguel Bernal MD on April 01, 2017 at 9:08 Board Certified Radiologist. This report was verified electronically.
[2017-04-01 09:16] LABS: AUTOMATED NEUTROPHIL # 5.2 TH/MM3 (1.8-7.7); BASOPHIL # 0.1 TH/MM3 (0-0.2); EOSINOPHIL # 0.2 TH/MM3 (0-0.4); EOSINOPHIL % 3.6 % (0.0-4.0); HEMATOCRIT 31.6 % (35.0-46.0); HEMO FLAGS DIFF FINAL; LYMPH % 12.8 % (9.0-44.0); LYMPHOCYTE # 0.9 TH/MM3 (1.0-4.8); MEAN CORPUSCULAR HEMOGLOBIN 31.2 PG (27.0-34.0); MEAN CORPUSCULAR HGB CONC 33.1 % (32.0-36.0); MONO % 6.2 % (0.0-8.0); NEUT % 76.4 % (16.0-70.0); PLATELET COUNT 221 TH/MM3 (150-450); RED BLOOD COUNT 3.36 MIL/MM3 (4.00-5.30); RED CELL DISTRIBUTION WIDTH 15.9 % (11.6-17.2); WHITE BLOOD COUNT 6.8 TH/MM3 (4.0-11.0)
[2017-04-01] MEDS: SODIUM PHOSPHATE INJ 30 MMOL in SODIUM CHLOR 0.9% 250 ML INJ 240 ML IV PRN (09:58)
[2017-04-01] MEDS: LISINOPRIL 5 MG TAB PO SCH (10:41)
[2017-04-01] MEDS ORDERED: BUMETANIDE INJ 1 MG/4 ML VIAL IV PUSH ONE (12:00)
[2017-04-01] MEDS: MELATONIN 5 MG TAB PO SCH (21:00)
[2017-04-01 21:21] LABS: POTASSIUM 4.1 MEQ/L (3.5-5.1)
[2017-04-01] MEDS: DIGOXIN 0.125 MG TAB PO SCH (21:49)
[2017-04-01] MEDS: DONEPEZIL HCL 5 MG TAB PO SCH (21:50)
[2017-04-02] VITALS (22 sets, daily range): BP systolic 83–118; BP diastolic 51–69; PULSE 63–90; RESP 11–28; TEMP 98–99.1; O2SAT 100
[2017-04-02] MEDS: METOCLOPRAMIDE HCL 10 MG/2 ML VIAL IV PUSH SCH ×3 (02:27→19:57)
[2017-04-02] MEDS: PIPERACIL-TAZO 4.5 GM PREMIX 100 ML IV SCH ×4 (02:27→19:55)
[2017-04-02] MEDS: CHLORHEXIDINE GLUCONATE 2 % 1 PACK (2 CLOTHS) TOP SCH (02:27)
[2017-04-02] MEDS: INSULIN NovoLIN REGULAR SUPPLEMENTAL SCALE SQ SCH ×4 (02:32→19:56)
[2017-04-02 05:58] LABS: AUTOMATED NEUTROPHIL # 4.7 TH/MM3 (1.8-7.7); BASOPHIL % 0.7 % (0.0-2.0); EOSINOPHIL # 0.2 TH/MM3 (0-0.4); EOSINOPHIL % 3.2 % (0.0-4.0); HEMATOCRIT 30.8 % (35.0-46.0); HEMO FLAGS DIFF FINAL; LYMPHOCYTE # 0.7 TH/MM3 (1.0-4.8); MEAN CELL VOLUME 94.7 FL (80.0-100.0); MEAN CORPUSCULAR HEMOGLOBIN 31.4 PG (27.0-34.0); MEAN CORPUSCULAR HGB CONC 33.2 % (32.0-36.0); MONO % 6.8 % (0.0-8.0); NEUT % 78.3 % (16.0-70.0); PLATELET COUNT 216 TH/MM3 (150-450); RED BLOOD COUNT 3.25 MIL/MM3 (4.00-5.30); RED CELL DISTRIBUTION WIDTH 15.9 % (11.6-17.2)
[2017-04-02 06:19] LABS: BICARBONATE 28.3 MEQ/L (21.0-32.0); MAGNESIUM 2.1 MG/DL (1.5-2.5); POTASSIUM 3.9 MEQ/L (3.5-5.1)
[2017-04-02] MEDS: PANTOPRAZOLE SODIUM 40 MG VIAL IV PUSH SCH ×2 (08:02→19:56)
[2017-04-02] MEDS: HEPARIN SODIUM - SQ 10,000 UNITS/ML VIAL SQ SCH ×2 (08:02→19:56)
[2017-04-02] MEDS: DOCUSATE SODIUM 50 MG/SENNA 8.6 MG TAB PO SCH ×2 (08:03→19:56)
[2017-04-02] MEDS: AMIODARONE 200 MG TAB OG-TUBE SCH (08:03)
[2017-04-02] MEDS: LISINOPRIL 5 MG TAB PO SCH (08:03)
[2017-04-02] MEDS: ASPIRIN 81 MG CHEW TAB CHEW SCH (08:03)
[2017-04-02] MEDS: CHLORHEXIDINE 0.12% (ORAL KIT) 15 ML CUP MT SCH ×2 (08:14→19:55)
--- NOTE | 2017-04-02 15:07 | HHI.CCPN ---
Subjective Remarks/Hospital Course Patient is an 82-year-old female with past medical history significant for recurrent UTIs, atrial fibrillation, hypertension, dyslipidemia, dementia who was transferred from [place] emergency department after being diagnosed for NSTEMI. She presented with chest pain and EKG showed sinus tachycardia, and troponin was elevated at 4.43. Patient was given aspirin (by EMS) and started on IV heparin infusion. Patient was transferred to [facility] ICU per Dr. Keys's request. Other abnormal labs include BNP of 1330 and potassium of 3. Previous echo showed an ejection fraction of 45%. I evaluated the patient in the ICU. Appears in moderate distress, tachypneic, tachycardic, but denies chest pain (when asked in Bulgarian by RN). Patient was seen by Dr. Keys in the ICU, not a candidate for cardiac catheterization on interventions at this time. 2-D echo is pending. UA shows evidence of UTI. Started on cefepime and Diflucan (yeast present in UA). Repeat troponin and lactic acid pending at this time. SUBJ 03/12: I rounded on patient at about 0830 AM, patient was communicative tachypneic but not in severe distress. I was emergently called to the bedside at 10:30 AM patient was unresponsive agonal breathing with blood pressure 60/29 , bradycardic. Emergently started on dopamine. Patient was not protecting airway and I emergently intubated and placed on mechanical ventilation. An emergency left subclavian central line also placed. Levophed was added due to persistent hypotension. Patient appears to be in severe cardiogenic shock. EF 15 -20% down from 40% on 03/04/17. Patient also has moderate to severe MR, moderate to severe TR with moderate to severe pulmonary hypertension. I have discussed with Dr. Keys, she does not think patient is a candidate for any invasive therapy due to advanced age and comorbidities including dementia. I have updated daughter Cata 03/13: Remains intubated sedated critically ill. Remains on 3 pressors (dopamine , Neftali-Synephrine, milrinone). Urine output diminishing. Patient is in multiorgan failure prognosis poor. Family wants to continue full aggressive care palliative care is following. Urine culture showing group D enterococcus and Soledad. Cefepime discontinued Zosyn started along with vancomycin and continue Diflucan 03/14 Patient is sedated with versed and intubated. On Neosyn 200 mics and Milrinone. T: 100.0 last night. Off Dopamine 03/15 Patient remains intubated and sedated with Versed 5mg/hr, Nesoyn down 112 mics and on Milrinone. Afebrile. s/p transfusion 1unit PRBC yesterday. 03/16 No events overnight. Remains sedated with versed and intubated. On Neosyn and Milrinone. 03/17 Patient is intubated and sedated, Neosyn 100mics and Milrinone. Afebrile. 03/18 No events overnight. On Neosyn is down to 37 mics, Milrinone and sedated with Versed. Afebrile. 03/19: no changes. off pressors. remains on inotrops. remains in significant cariogenic shock and volume overload. still on versed. no improvements. off pathway. family wants aggressive care. 03/20: we have made no improvements to cardiogenic shock requiring inotropic therapy. off pathway. I had a long discussion with family and they still want aggressive care, stating "she has been closer to than this, and she always gets better." I talked about need for tracheostomy, and they are agreeable. 03/21 Patient remains intubated off sedation. Afebrile. For possible trach today. On Neosyn 30 mics and Milrinone. 03/22 Patient s/p trach and PEG tube placement yesterday. Neosyn down 10 mics, on Milrinone. 03/23 Patient is off Neosyn, on Milrinone. Tolerating tube feeds. 03/24 No events overnight. off all pressors. On PRVC with PEEP: 5 and FIO2 35%. Tolerated CPAP x 2 hrs yesterday 03/25 Patient is on CPAP PS 15, PEEP:5 and FIO2 35%. Afebrile. Tolerating tube feeds. 03/26 No events overnight. Tolerated CPAP trials x 8 hrs yesterday. 03/27: In A. fib with RVR. No tolerating CPAP due to tachypnea. Chest x-ray shows right more than left basilar infiltrate probably effusion. IV metoprolol 2.5 mg 1 and 0.25 mg IV digoxin ordered. If rate not controlled plan on Cardizem infusion. May need thoracentesis 03/28 Patient is on Levophed 8 mics, spiked fever with T: 102.7. Patient had right sided thoracentesis followed by pigtail catheter placement. CXR post procedure showed 4mm right upper PTX. CXR this morning showed no evidence of PTX, LLL atelectasis vs consolidation. 03/29: MAXIMUM TEMPERATURE 100. Currently 99.0. Currently off norepinephrine drip. Did not tolerate CPAP trial today. Arousable and follows commands. Subjective 03/30: Tmax this morning 99.3. Off all vasopressors. Tolerated PSV trial 2.5 hours today. Arousable and follows commands. Responds to Bulgarian. Understanding Uzbek 03/31 No events overnight. On no sedation. 04/01 No events overnight. On CPAP with PS 20, PEEP:5 and FIO2 35%. Afebrile. 04/02: No evidence overnight and no change in exam. Chest tube with virtually no output past [address] to [facility] and check a chest x-ray tomorrow morning Objective Vital Signs Date Time Temp Pulse Resp B/P Pulse Ox O2 Delivery O2 Flow Rate FiO2 04/02/17 14:44 100 35 04/02/17 14:00 86 04/02/17 12:00 98.3 25 94/52 Intake and Output 04/01/17 04/01/17 04/02/17 08:00 16:00 00:00 Intake Total 557 ml 842 ml 571 ml Output Total 650 ml 475 ml 505 ml Balance -93 ml 367 ml 66 ml Result Diagram: 04/02/17 0457 04/02/17 0457 Imaging Last Impressions Chest X-Ray 03/31/17 0600 Signed Impressions: Service Date/Time: Friday, March 31, 2017 03:12 - CONCLUSION: No significant change has occurred. Av Meadows MD Abdomen Ultrasound 03/16/17 0000 Signed Impressions: Service Date/Time: Thursday, March 16, 2017 20:35 - CONCLUSION: 1. Right renal cyst and multiple hepatic cysts. 2. Echogenic lesion in liver measures 1.8 cm likely hemangioma. Contrasted MRI may be warranted for confirmation. 3. Cholelithiasis. Evans Augustin MD Head CT 03/12/17 0000 Signed Impressions: Service Date/Time: Sunday, March 12, 2017 13:00 - CONCLUSION: 1. Cerebral atrophy and chronic ischemic small vessel vasculopathy. Evans Augustin MD Objective Remarks GENERAL: Patient is 82 yo female on ventilator via trach SKIN: Warm and dry. No rash HEAD: Normocephalic. EYES: No scleral icterus. No injection or drainage. NECK: Supple, trachea midline. No JVD or lymphadenopathy. Trach in place CARDIOVASCULAR: Tachycardic, no murmurs, gallops, or rubs. RESPIRATORY: Breath sounds equal bilaterally, diminished at bases. No accessory muscle use on the vent. Right chest tube -no output since am GASTROINTESTINAL: Abdomen soft, non-tender, nondistended. +PEG tube MUSCULOSKELETAL: Trace bilateral upper and lower extremity peripheral edema Neuro: On vent via trach. Moves all extremities when sedation lightened. Follows commands. A/P Assessment and Plan NEURO/PSYCH: Acute toxic metabolic encephalopathy Dementia disorder NOS Melatonin 5mg po qhs for improved sleep-wake orientation. Continue home donepezil 5 mg at night Encephalopathy most likely secondary to metabolic causes, much improved CT brain 03/12 :Cerebral atrophy and chronic ischemic small vessel vasculopathy. EEG showed mod. encephalopathy Hydromorphone 0.5 mg IV every 4 hours when necessary pain RESP: Acute respiratory failure- s/p trach 03/21 History of COPD Pulmonary artery hypertension Right pneumothorax Continue with vent support and keep sat >92% Ventilator bundle. DuoNeb scheduled and when necessary SBT trials as carley Pulm toilet, trach care s/p Right sided thoracentesis followed by pigtail catheter insertion - monitor CT drainage CT to water seal today 04/02/17. Clamp for 1 hour in am and CXR CXR 03/31 : b/l consolidation, trach in place CV: NSTEMI Atrial fibrillation with rapid ventricular rate Cardiogenic shock Acute systolic heart failure Lactic acidosis Ischemic cardiomyopathy with ejection fraction 15-20% Moderate to severe mitral and tricuspid regurgitation History of A. fib Monitor HR and BP keep MAP>65mmHg On Lopressor 12.5 mg BID, Amiodarone 200mg daily, Dig 0.125mg daily 1.6 on 03/30 , Lisinopril 2.5 mg daily Ejection fraction 15-20% , in comparison to echocardiogram on 03/04/17 EF 40% Monitor HR and BP keep MAP>65mmHg GI: IV pantoprazole 40mg BID s/p transfusion 1unit PRBC, GI is following. On tube feeds-Suplena goal 50 ml/hr status post G-tube placement On metoclopramide 5mg IV Q8 : acute kidney injury- secondary to cardiogenic shock Monitor renal function , I/O's, electrolytes replacement per protocol. d/c Free water. Will need phos replacement today Diuresed with Bumex 1mg x1 04/01 ID: Candiduria 03/11 Urine culture growing Soledad and group D enterococcus(VRE) 03/14 Urine cx: C. Albicans Continue Piperacillin/tazobactam, monitor for signs of infections ( Fever, WBC) ID has followed- Dr. Domínguez, signed off 03/22 HEME: Anemia Monitor CBC, CMP, coags s/p [id number] PRBC 03/14 and 03/29 ENDO: SSI for glycemic control. Electrolyte replacement protocol PROPH: Bilateral lower extremity SCDs. SQ Heparin, Protonix LINES: peripheral IV;s , authorization manager is following for placement Palliative care following Level 3 Transfer to [facility] when bed available Duy Valdez MD Apr 02, 2017 15:07
[2017-04-02] MEDS: DIGOXIN 0.125 MG TAB PO SCH (19:56)
[2017-04-02] MEDS: MELATONIN 5 MG TAB PO SCH (19:57)
[2017-04-02] MEDS: DONEPEZIL HCL 5 MG TAB PO SCH (19:58)
[2017-04-03] VITALS (24 sets, daily range): BP systolic 89–125; BP diastolic 51–69; PULSE 60–78; RESP 11–16; TEMP 98.1–98.9; O2SAT 99–100
[2017-04-03] MEDS: PIPERACIL-TAZO 4.5 GM PREMIX 100 ML IV SCH ×4 (02:39→20:24)
[2017-04-03] MEDS: METOCLOPRAMIDE HCL 10 MG/2 ML VIAL IV PUSH SCH ×3 (02:39→20:26)
[2017-04-03] MEDS: CHLORHEXIDINE GLUCONATE 2 % 1 PACK (2 CLOTHS) TOP SCH (02:39)
[2017-04-03] MEDS: INSULIN NovoLIN REGULAR SUPPLEMENTAL SCALE SQ SCH ×4 (02:39→20:29)
[2017-04-03] MEDS: ASPIRIN 81 MG CHEW TAB CHEW SCH (08:01)
[2017-04-03] MEDS: AMIODARONE 200 MG TAB OG-TUBE SCH (08:01)
[2017-04-03] MEDS: PANTOPRAZOLE SODIUM 40 MG VIAL IV PUSH SCH ×2 (08:02→20:24)
[2017-04-03] MEDS: LISINOPRIL 5 MG TAB PO SCH (08:02)
[2017-04-03] MEDS: HEPARIN SODIUM - SQ 10,000 UNITS/ML VIAL SQ SCH ×2 (08:02→20:25)
[2017-04-03] MEDS: DOCUSATE SODIUM 50 MG/SENNA 8.6 MG TAB PO SCH ×2 (08:02→20:25)
[2017-04-03] MEDS: CHLORHEXIDINE 0.12% (ORAL KIT) 15 ML CUP MT SCH ×2 (08:03→20:23)
--- NOTE | 2017-04-03 09:41 | HHI.CCPN ---
Subjective Remarks/Hospital Course Patient is an 82-year-old female with past medical history significant for recurrent UTIs, atrial fibrillation, hypertension, dyslipidemia, dementia who was transferred from [place] emergency department after being diagnosed for NSTEMI. She presented with chest pain and EKG showed sinus tachycardia, and troponin was elevated at 4.43. Patient was given aspirin (by EMS) and started on IV heparin infusion. Patient was transferred to [facility] ICU per Dr. Keys's request. Other abnormal labs include BNP of 1330 and potassium of 3. Previous echo showed an ejection fraction of 45%. I evaluated the patient in the ICU. Appears in moderate distress, tachypneic, tachycardic, but denies chest pain (when asked in Qatari by RN). Patient was seen by Dr. Keys in the ICU, not a candidate for cardiac catheterization on interventions at this time. 2-D echo is pending. UA shows evidence of UTI. Started on cefepime and Diflucan (yeast present in UA). Repeat troponin and lactic acid pending at this time. SUBJ 03/12: I rounded on patient at about 0830 AM, patient was communicative tachypneic but not in severe distress. I was emergently called to the bedside at 10:30 AM patient was unresponsive agonal breathing with blood pressure 60/29 , bradycardic. Emergently started on dopamine. Patient was not protecting airway and I emergently intubated and placed on mechanical ventilation. An emergency left subclavian central line also placed. Levophed was added due to persistent hypotension. Patient appears to be in severe cardiogenic shock. EF 15 -20% down from 40% on 03/04/17. Patient also has moderate to severe MR, moderate to severe TR with moderate to severe pulmonary hypertension. I have discussed with Dr. Keys, she does not think patient is a candidate for any invasive therapy due to advanced age and comorbidities including dementia. I have updated daughter Cata 03/13: Remains intubated sedated critically ill. Remains on 3 pressors (dopamine , Neftali-Synephrine, milrinone). Urine output diminishing. Patient is in multiorgan failure prognosis poor. Family wants to continue full aggressive care palliative care is following. Urine culture showing group D enterococcus and Soledad. Cefepime discontinued Zosyn started along with vancomycin and continue Diflucan 03/14 Patient is sedated with versed and intubated. On Neosyn 200 mics and Milrinone. T: 100.0 last night. Off Dopamine 03/15 Patient remains intubated and sedated with Versed 5mg/hr, Nesoyn down 112 mics and on Milrinone. Afebrile. s/p transfusion 1unit PRBC yesterday. 03/16 No events overnight. Remains sedated with versed and intubated. On Neosyn and Milrinone. 03/17 Patient is intubated and sedated, Neosyn 100mics and Milrinone. Afebrile. 03/18 No events overnight. On Neosyn is down to 37 mics, Milrinone and sedated with Versed. Afebrile. 03/19: no changes. off pressors. remains on inotrops. remains in significant cariogenic shock and volume overload. still on versed. no improvements. off pathway. family wants aggressive care. 03/20: we have made no improvements to cardiogenic shock requiring inotropic therapy. off pathway. I had a long discussion with family and they still want aggressive care, stating "she has been closer to than this, and she always gets better." I talked about need for tracheostomy, and they are agreeable. 03/21 Patient remains intubated off sedation. Afebrile. For possible trach today. On Neosyn 30 mics and Milrinone. 03/22 Patient s/p trach and PEG tube placement yesterday. Neosyn down 10 mics, on Milrinone. 03/23 Patient is off Neosyn, on Milrinone. Tolerating tube feeds. 03/24 No events overnight. off all pressors. On PRVC with PEEP: 5 and FIO2 35%. Tolerated CPAP x 2 hrs yesterday 03/25 Patient is on CPAP PS 15, PEEP:5 and FIO2 35%. Afebrile. Tolerating tube feeds. 03/26 No events overnight. Tolerated CPAP trials x 8 hrs yesterday. 03/27: In A. fib with RVR. No tolerating CPAP due to tachypnea. Chest x-ray shows right more than left basilar infiltrate probably effusion. IV metoprolol 2.5 mg 1 and 0.25 mg IV digoxin ordered. If rate not controlled plan on Cardizem infusion. May need thoracentesis 03/28 Patient is on Levophed 8 mics, spiked fever with T: 102.7. Patient had right sided thoracentesis followed by pigtail catheter placement. CXR post procedure showed 4mm right upper PTX. CXR this morning showed no evidence of PTX, LLL atelectasis vs consolidation. 03/29: MAXIMUM TEMPERATURE 100. Currently 99.0. Currently off norepinephrine drip. Did not tolerate CPAP trial today. Arousable and follows commands. Subjective 03/30: Tmax this morning 99.3. Off all vasopressors. Tolerated PSV trial 2.5 hours today. Arousable and follows commands. Responds to Qatari. Understanding Tajik 03/31 No events overnight. On no sedation. 04/01 No events overnight. On CPAP with PS 20, PEEP:5 and FIO2 35%. Afebrile. 04/02: No evidence overnight and no change in exam. Chest tube with virtually no output past [address] to [facility] and check a chest x-ray tomorrow morning 04/03 Patient remains on ventilator via trach. Afebrile. Objective Vital Signs Date Time Temp Pulse Resp B/P Pulse Ox O2 Delivery O2 Flow Rate FiO2 04/03/17 09:11 100 35 04/03/17 08:50 BiPAP/CPAP 04/03/17 08:00 66 04/03/17 04:00 98.9 14 94/51 Intake and Output 04/02/17 04/02/17 04/03/17 08:00 16:00 00:00 Intake Total 417 ml 626 ml 457 ml Output Total 455 ml 390 ml 595 ml Balance -38 ml 236 ml -138 ml Result Diagram: 04/02/17 0457 04/02/17 0457 Imaging Last Impressions Chest X-Ray 04/01/17 0000 Signed Impressions: Service Date/Time: Saturday, April 01, 2017 08:44 - CONCLUSION: Stable chest José Miguel Bernal MD Abdomen Ultrasound 03/16/17 0000 Signed Impressions: Service Date/Time: Thursday, March 16, 2017 20:35 - CONCLUSION: 1. Right renal cyst and multiple hepatic cysts. 2. Echogenic lesion in liver measures 1.8 cm likely hemangioma. Contrasted MRI may be warranted for confirmation. 3. Cholelithiasis. Evans Augustin MD Head CT 03/12/17 0000 Signed Impressions: Service Date/Time: Sunday, March 12, 2017 13:00 - CONCLUSION: 1. Cerebral atrophy and chronic ischemic small vessel vasculopathy. Evans Augustin MD Objective Remarks GENERAL: Patient is 82 yo female on ventilator via trach SKIN: Warm and dry. No rash HEAD: Normocephalic. EYES: No scleral icterus. No injection or drainage. NECK: Supple, trachea midline. No JVD or lymphadenopathy. Trach in place CARDIOVASCULAR: Tachycardic, no murmurs, gallops, or rubs. RESPIRATORY: Breath sounds equal bilaterally, diminished at bases. No accessory muscle use on the vent. Right chest tube -no output since am GASTROINTESTINAL: Abdomen soft, non-tender, nondistended. +PEG tube MUSCULOSKELETAL: Trace bilateral upper and lower extremity peripheral edema Neuro: On vent via trach. Moves all extremities when sedation lightened. Follows commands. A/P Assessment and Plan NEURO/PSYCH: Acute toxic metabolic encephalopathy Dementia disorder NOS Melatonin 5mg po qhs for improved sleep-wake orientation. Continue home donepezil 5 mg at night Encephalopathy most likely secondary to metabolic causes, much improved CT brain 03/12 :Cerebral atrophy and chronic ischemic small vessel vasculopathy. EEG showed mod. encephalopathy Hydromorphone 0.5 mg IV every 4 hours when necessary pain RESP: Acute respiratory failure- s/p trach 03/21 History of COPD Pulmonary artery hypertension Right pneumothorax Continue with vent support and keep sat >92% Ventilator bundle. DuoNeb scheduled and when necessary SBT trials as carley Pulm toilet, trach care s/p Right sided thoracentesis followed by pigtail catheter insertion - monitor CT drainage Clamp CT today and repeat CXR CV: NSTEMI Atrial fibrillation with rapid ventricular rate Cardiogenic shock Acute systolic heart failure Lactic acidosis Ischemic cardiomyopathy with ejection fraction 15-20% Moderate to severe mitral and tricuspid regurgitation History of A. fib Monitor HR and BP keep MAP>65mmHg On Lopressor 12.5 mg BID, Amiodarone 200mg daily, Dig 0.125mg daily 1.6 on 03/30 recheck level today, Lisinopril 2.5 mg daily Ejection fraction 15-20% , in comparison to echocardiogram on 03/04/17 EF 40% Monitor HR and BP keep MAP>65mmHg GI: IV pantoprazole 40mg BID s/p transfusion 1unit PRBC, GI is following. On tube feeds-Suplena goal 50 ml/hr status post G-tube placement On metoclopramide 5mg IV Q8 : acute kidney injury- secondary to cardiogenic shock Monitor renal function , I/O's, electrolytes replacement per protocol. ID: Candiduria 03/11 Urine culture growing Soledad and group D enterococcus(VRE) 03/14 Urine cx: C. Albicans Continue Piperacillin/tazobactam started 03/28 d/c after today to finish 7 adan course., monitor for signs of infections ( Fever, WBC) ID has followed- Dr. Domínguez, signed off 03/22 HEME: Anemia Monitor CBC, CMP, coags s/p [id number] PRBC 03/14 and 03/29 ENDO: SSI for glycemic control. Electrolyte replacement protocol PROPH: Bilateral lower extremity SCDs. SQ Heparin, Protonix LINES: peripheral IV;s , manager story is following for placement Palliative care following Check labs today Level 3 Transfer to [facility] when bed available Deepthi Griffiths MD Apr 03, 2017 09:41
--- NOTE | 2017-04-03 10:46 | RADRPT ---
EXAM DATE/TIME: 04/03/2017 09:55 [facility] COMPARISON: CHEST SINGLE AP, April 01, 2017, 8:44. INDICATIONS : Respiratory disease. Chest tube clamped for 2 hours. MEDICAL HISTORY : None. SURGICAL HISTORY : Chest tube, right. ENCOUNTER: Subsequent ACUITY: 4 - 6 days PAIN SCORE: Non-responsive. LOCATION: Right chest FINDINGS: There continues to be a patchy infiltrate throughout the right lung. The left lung is stable with a m ild perihilar infiltrate. Otherwise the rest of the left lung is grossly clear.. The tracheostomy tub e remains in place. There is no pneumothorax. The heart size is stable. There is a small right-sided chest tube in place CONCLUSION: 1. Small right chest tube in place. No pneumothorax. 2. No change in the patchy infiltrate throughout the right lung and left perihilar infiltrate.. Colten Dia MD on April 03, 2017 at 10:42 Board Certified Radiologist. This report was verified electronically.
[2017-04-03] MEDS: RESP: ALBUTEROL 2.5 MG/IPRATROPIUM 0.5 MG NEB (PRN) INH (20:19)
[2017-04-03] MEDS: MELATONIN 5 MG TAB PO SCH (20:25)
[2017-04-03] MEDS: DONEPEZIL HCL 5 MG TAB PO SCH (20:25)
[2017-04-03 21:11] LABS: AUTOMATED NEUTROPHIL # 6.1 TH/MM3 (1.8-7.7); BASOPHIL # 0.1 TH/MM3 (0-0.2); BASOPHIL % 0.9 % (0.0-2.0); EOSINOPHIL # 0.2 TH/MM3 (0-0.4); EOSINOPHIL % 2.6 % (0.0-4.0); HEMATOCRIT 28.1 % (35.0-46.0); HEMO FLAGS DIFF FINAL; LYMPHOCYTE # 0.8 TH/MM3 (1.0-4.8); MEAN CELL VOLUME 94.8 FL (80.0-100.0); MEAN CORPUSCULAR HEMOGLOBIN 31.8 PG (27.0-34.0); MEAN CORPUSCULAR HGB CONC 33.6 % (32.0-36.0); MONO % 5.5 % (0.0-8.0); PLATELET COUNT 240 TH/MM3 (150-450); RED BLOOD COUNT 2.96 MIL/MM3 (4.00-5.30); RED CELL DISTRIBUTION WIDTH 15.6 % (11.6-17.2); WHITE BLOOD COUNT 7.5 TH/MM3 (4.0-11.0)
[2017-04-03 21:26] LABS: BICARBONATE 31.2 MEQ/L (21.0-32.0); POTASSIUM 3.8 MEQ/L (3.5-5.1)
[2017-04-03 21:41] LABS: DIGOXIN 1.3 NG/ML (0.8-2.0)
[2017-04-03] MEDS: DIGOXIN 0.125 MG TAB PO SCH (22:02)
[2017-04-04] VITALS (19 sets, daily range): BP systolic 90–122; BP diastolic 51–59; PULSE 62–89; RESP 10–17; TEMP 98–98.6; O2SAT 100
[2017-04-04] MEDS: INSULIN NovoLIN REGULAR SUPPLEMENTAL SCALE SQ SCH ×4 (03:00→21:00)
[2017-04-04] MEDS: CHLORHEXIDINE GLUCONATE 2 % 1 PACK (2 CLOTHS) TOP SCH (03:31)
[2017-04-04] MEDS: METOCLOPRAMIDE HCL 10 MG/2 ML VIAL IV PUSH SCH ×3 (03:31→21:46)
[2017-04-04] MEDS: PIPERACIL-TAZO 4.5 GM PREMIX 100 ML IV SCH ×2 (03:32→09:12)
[2017-04-04] MEDS: RESP: ALBUTEROL 2.5 MG/IPRATROPIUM 0.5 MG NEB (PRN) INH (03:57)
--- NOTE | 2017-04-04 05:28 | RADRPT ---
EXAM DATE/TIME: 04/04/2017 04:34 [facility] COMPARISON: CHEST SINGLE AP, April 03, 2017, 9:55. INDICATIONS : Respiratory failure MEDICAL HISTORY : None. SURGICAL HISTORY : None. ENCOUNTER: Subsequent ACUITY: 1 week PAIN SCORE: Non-responsive. LOCATION: Bilateral chest FINDINGS: Decreasing consolidation and effusions on both sides, now mild/small. No pneumothorax seen. Mild card iomegaly is stable. Tracheostomy tube again noted. CONCLUSION: Decreased bibasilar consolidation and small effusions. José Miguel Hodge MD on April 04, 2017 at 5:26 Board Certified Radiologist. This report was verified electronically.
[2017-04-04 08:27] LABS: BASOPHIL % 0.5 % (0.0-2.0); EOSINOPHIL # 0.1 TH/MM3 (0-0.4); EOSINOPHIL % 2.2 % (0.0-4.0); HEMATOCRIT 28.4 % (35.0-46.0); HEMO FLAGS DIFF FINAL; LYMPH % 12.9 % (9.0-44.0); LYMPHOCYTE # 0.8 TH/MM3 (1.0-4.8); MEAN CORPUSCULAR HEMOGLOBIN 32.1 PG (27.0-34.0); MEAN CORPUSCULAR HGB CONC 34.1 % (32.0-36.0); MONO % 6.6 % (0.0-8.0); NEUT % 77.8 % (16.0-70.0); PLATELET COUNT 239 TH/MM3 (150-450); RED BLOOD COUNT 3.02 MIL/MM3 (4.00-5.30); WHITE BLOOD COUNT 6.4 TH/MM3 (4.0-11.0)
[2017-04-04 08:53] LABS: BICARBONATE 32.6 MEQ/L (21.0-32.0); POTASSIUM 3.8 MEQ/L (3.5-5.1)
[2017-04-04] MEDS: AMIODARONE 200 MG TAB OG-TUBE SCH (09:00)
[2017-04-04] MEDS: DOCUSATE SODIUM 50 MG/SENNA 8.6 MG TAB PO SCH ×2 (09:10→21:00)
[2017-04-04] MEDS: ASPIRIN 81 MG CHEW TAB CHEW SCH (09:11)
[2017-04-04] MEDS: HEPARIN SODIUM - SQ 10,000 UNITS/ML VIAL SQ SCH ×2 (09:11→21:48)
[2017-04-04] MEDS: LISINOPRIL 5 MG TAB PO SCH (09:11)
[2017-04-04] MEDS: PANTOPRAZOLE SODIUM 40 MG VIAL IV PUSH SCH ×2 (09:11→21:46)
[2017-04-04] MEDS: CHLORHEXIDINE 0.12% (ORAL KIT) 15 ML CUP MT SCH ×2 (09:12→21:52)
--- NOTE | 2017-04-04 10:11 | HHI.CCPN ---
Subjective Remarks/Hospital Course Patient is an 82-year-old female with past medical history significant for recurrent UTIs, atrial fibrillation, hypertension, dyslipidemia, dementia who was transferred from [place] emergency department after being diagnosed for NSTEMI. She presented with chest pain and EKG showed sinus tachycardia, and troponin was elevated at 4.43. Patient was given aspirin (by EMS) and started on IV heparin infusion. Patient was transferred to [facility] ICU per Dr. Keys's request. Other abnormal labs include BNP of 1330 and potassium of 3. Previous echo showed an ejection fraction of 45%. I evaluated the patient in the ICU. Appears in moderate distress, tachypneic, tachycardic, but denies chest pain (when asked in Turkish by RN). Patient was seen by Dr. Keys in the ICU, not a candidate for cardiac catheterization on interventions at this time. 2-D echo is pending. UA shows evidence of UTI. Started on cefepime and Diflucan (yeast present in UA). Repeat troponin and lactic acid pending at this time. SUBJ 03/12: I rounded on patient at about 0830 AM, patient was communicative tachypneic but not in severe distress. I was emergently called to the bedside at 10:30 AM patient was unresponsive agonal breathing with blood pressure 60/29 , bradycardic. Emergently started on dopamine. Patient was not protecting airway and I emergently intubated and placed on mechanical ventilation. An emergency left subclavian central line also placed. Levophed was added due to persistent hypotension. Patient appears to be in severe cardiogenic shock. EF 15 -20% down from 40% on 03/04/17. Patient also has moderate to severe MR, moderate to severe TR with moderate to severe pulmonary hypertension. I have discussed with Dr. Keys, she does not think patient is a candidate for any invasive therapy due to advanced age and comorbidities including dementia. I have updated daughter Cata 03/13: Remains intubated sedated critically ill. Remains on 3 pressors (dopamine , Neftali-Synephrine, milrinone). Urine output diminishing. Patient is in multiorgan failure prognosis poor. Family wants to continue full aggressive care palliative care is following. Urine culture showing group D enterococcus and Soledad. Cefepime discontinued Zosyn started along with vancomycin and continue Diflucan 03/14 Patient is sedated with versed and intubated. On Neosyn 200 mics and Milrinone. T: 100.0 last night. Off Dopamine 03/15 Patient remains intubated and sedated with Versed 5mg/hr, Nesoyn down 112 mics and on Milrinone. Afebrile. s/p transfusion 1unit PRBC yesterday. 03/16 No events overnight. Remains sedated with versed and intubated. On Neosyn and Milrinone. 03/17 Patient is intubated and sedated, Neosyn 100mics and Milrinone. Afebrile. 03/18 No events overnight. On Neosyn is down to 37 mics, Milrinone and sedated with Versed. Afebrile. 03/19: no changes. off pressors. remains on inotrops. remains in significant cariogenic shock and volume overload. still on versed. no improvements. off pathway. family wants aggressive care. 03/20: we have made no improvements to cardiogenic shock requiring inotropic therapy. off pathway. I had a long discussion with family and they still want aggressive care, stating "she has been closer to than this, and she always gets better." I talked about need for tracheostomy, and they are agreeable. 03/21 Patient remains intubated off sedation. Afebrile. For possible trach today. On Neosyn 30 mics and Milrinone. 03/22 Patient s/p trach and PEG tube placement yesterday. Neosyn down 10 mics, on Milrinone. 03/23 Patient is off Neosyn, on Milrinone. Tolerating tube feeds. 03/24 No events overnight. off all pressors. On PRVC with PEEP: 5 and FIO2 35%. Tolerated CPAP x 2 hrs yesterday 03/25 Patient is on CPAP PS 15, PEEP:5 and FIO2 35%. Afebrile. Tolerating tube feeds. 03/26 No events overnight. Tolerated CPAP trials x 8 hrs yesterday. 03/27: In A. fib with RVR. No tolerating CPAP due to tachypnea. Chest x-ray shows right more than left basilar infiltrate probably effusion. IV metoprolol 2.5 mg 1 and 0.25 mg IV digoxin ordered. If rate not controlled plan on Cardizem infusion. May need thoracentesis 03/28 Patient is on Levophed 8 mics, spiked fever with T: 102.7. Patient had right sided thoracentesis followed by pigtail catheter placement. CXR post procedure showed 4mm right upper PTX. CXR this morning showed no evidence of PTX, LLL atelectasis vs consolidation. 03/29: MAXIMUM TEMPERATURE 100. Currently 99.0. Currently off norepinephrine drip. Did not tolerate CPAP trial today. Arousable and follows commands. Subjective 03/30: Tmax this morning 99.3. Off all vasopressors. Tolerated PSV trial 2.5 hours today. Arousable and follows commands. Responds to Turkish. Understanding Luxembourgish 03/31 No events overnight. On no sedation. 04/01 No events overnight. On CPAP with PS 20, PEEP:5 and FIO2 35%. Afebrile. 04/02: No evidence overnight and no change in exam. Chest tube with virtually no output past [address] to [facility] and check a chest x-ray tomorrow morning 04/03 Patient remains on ventilator via trach. Afebrile. 04/04 No events overnight. Chest tube d/c yesterday CXR this morning decreased bibasilar consolidation and small effusions. Afebrile. Objective Vital Signs Date Time Temp Pulse Resp B/P Pulse Ox O2 Delivery O2 Flow Rate FiO2 04/04/17 07:52 100 35 04/04/17 06:00 68 04/04/17 04:00 98.2 14 92/53 04/03/17 08:50 BiPAP/CPAP Intake and Output 04/03/17 04/03/17 04/04/17 08:00 16:00 00:00 Intake Total 465 ml 691 ml 483 ml Output Total 305 ml 750 ml 538 ml Balance 160 ml -59 ml -55 ml Result Diagram: 04/04/17 0815 04/04/17 0815 Other Results Laboratory Tests Test 04/03/17 04/04/17 19:47 08:15 White Blood Count 7.5 TH/MM3 6.4 TH/MM3 Red Blood Count 2.96 MIL/MM3 3.02 MIL/MM3 Hemoglobin 9.4 GM/DL 9.7 GM/DL Hematocrit 28.1 % 28.4 % Mean Corpuscular Volume 94.8 FL 94.0 FL Mean Corpuscular Hemoglobin 31.8 PG 32.1 PG Mean Corpuscular Hemoglobin 33.6 % 34.1 % Concent Red Cell Distribution Width 15.6 % 16.0 % Platelet Count 240 TH/MM3 239 TH/MM3 Mean Platelet Volume 9.8 FL 9.8 FL Neutrophils (%) (Auto) 81.0 % 77.8 % Lymphocytes (%) (Auto) 10.0 % 12.9 % Monocytes (%) (Auto) 5.5 % 6.6 % Eosinophils (%) (Auto) 2.6 % 2.2 % Basophils (%) (Auto) 0.9 % 0.5 % Neutrophils # (Auto) 6.1 TH/MM3 5.0 TH/MM3 Lymphocytes # (Auto) 0.8 TH/MM3 0.8 TH/MM3 Monocytes # (Auto) 0.4 TH/MM3 0.4 TH/MM3 Eosinophils # (Auto) 0.2 TH/MM3 0.1 TH/MM3 Basophils # (Auto) 0.1 TH/MM3 0.0 TH/MM3 CBC Comment DIFF FINAL DIFF FINAL Differential Comment Sodium Level 141 MEQ/L 139 MEQ/L Potassium Level 3.8 MEQ/L 3.8 MEQ/L Chloride Level 103 MEQ/L 102 MEQ/L Carbon Dioxide Level 31.2 MEQ/L 32.6 MEQ/L Anion Gap 7 MEQ/L 4 MEQ/L Blood Urea Nitrogen 30 MG/DL 30 MG/DL Creatinine 0.54 MG/DL 0.55 MG/DL Estimat Glomerular Filtration 108 ML/MIN 105 ML/MIN Rate Random Glucose 100 MG/DL 117 MG/DL Calcium Level 8.1 MG/DL 8.3 MG/DL Digoxin Level 1.3 NG/ML Imaging Last Impressions Chest X-Ray 04/04/17 0000 Signed Impressions: Service Date/Time: Tuesday, April 04, 2017 04:34 - CONCLUSION: Decreased bibasilar consolidation and small effusions. José Miguel Hodge MD Abdomen Ultrasound 03/16/17 0000 Signed Impressions: Service Date/Time: Thursday, March 16, 2017 20:35 - CONCLUSION: 1. Right renal cyst and multiple hepatic cysts. 2. Echogenic lesion in liver measures 1.8 cm likely hemangioma. Contrasted MRI may be warranted for confirmation. 3. Cholelithiasis. Evans Augustin MD Head CT 03/12/17 0000 Signed Impressions: Service Date/Time: Sunday, March 12, 2017 13:00 - CONCLUSION: 1. Cerebral atrophy and chronic ischemic small vessel vasculopathy. Evans Augustin MD Objective Remarks GENERAL: Patient is 82 yo female on ventilator via trach SKIN: Warm and dry. No rash HEAD: Normocephalic. EYES: No scleral icterus. No injection or drainage. NECK: Supple, trachea midline. No JVD or lymphadenopathy. Trach in place CARDIOVASCULAR: Tachycardic, no murmurs, gallops, or rubs. RESPIRATORY: Breath sounds equal bilaterally, diminished at bases. No accessory muscle use on the vent. Right chest tube -no output since am GASTROINTESTINAL: Abdomen soft, non-tender, nondistended. +PEG tube MUSCULOSKELETAL: Trace bilateral upper and lower extremity peripheral edema Neuro: On vent via trach. Moves all extremities when sedation lightened. Follows commands. A/P Assessment and Plan NEURO/PSYCH: Acute toxic metabolic encephalopathy Dementia disorder NOS Melatonin 5mg po qhs for improved sleep-wake orientation. Continue home donepezil 5 mg at night Encephalopathy most likely secondary to metabolic causes, much improved CT brain 03/12 :Cerebral atrophy and chronic ischemic small vessel vasculopathy. EEG showed mod. encephalopathy Hydromorphone 0.5 mg IV every 4 hours when necessary pain RESP: Acute respiratory failure- s/p trach 03/21 History of COPD Pulmonary artery hypertension Right pneumothorax Continue with vent support and keep sat >92% Ventilator bundle. DuoNeb scheduled and when necessary SBT trials as carley Pulm toilet, trach care Right pigtail catheter d/c yesterday CXT today: Decreased bibasilar consolidation and small effusions. CV: NSTEMI Atrial fibrillation with rapid ventricular rate Cardiogenic shock Acute systolic heart failure Lactic acidosis Ischemic cardiomyopathy with ejection fraction 15-20% Moderate to severe mitral and tricuspid regurgitation History of A. fib Monitor HR and BP keep MAP>65mmHg. Lopressor is on hold. Hold Amiodarone and Digoxin for borderline low BP. On Lisinopril 2.5 mg daily Ejection fraction 15-20% , in comparison to echocardiogram on 03/04/17 EF 40% Monitor HR and BP keep MAP>65mmHg GI: IV pantoprazole 40mg BID s/p transfusion 1unit PRBC, GI is following. On tube feeds-Suplena goal 50 ml/hr status post G-tube placement On metoclopramide 5mg IV Q8 : acute kidney injury- secondary to cardiogenic shock Monitor renal function , I/O's, electrolytes replacement per protocol. ID: Candiduria 03/11 Urine culture growing Soledad and group D enterococcus(VRE) 03/14 Urine cx: C. Albicans d/c Zosyn( started 03/28 -04/03) monitor for signs of infections ( Fever, WBC) ID has followed- Dr. Domínguez, signed off 03/22 HEME: Anemia Monitor CBC, CMP, coags s/p [id number] PRBC 03/14 and 03/29 ENDO: SSI for glycemic control. Electrolyte replacement protocol PROPH: Bilateral lower extremity SCDs. SQ Heparin, Protonix LINES: peripheral IV;s , business analyst project manager is following for placement Palliative care following Level 3 Deepthi Griffiths MD Apr 04, 2017 10:11
[2017-04-04] MEDS: MELATONIN 5 MG TAB PO SCH (21:00)
[2017-04-04] MEDS: DONEPEZIL HCL 5 MG TAB PO SCH (21:46)
[2017-04-05] VITALS (21 sets, daily range): BP systolic 101–127; BP diastolic 55–70; PULSE 68–99; RESP 10–19; TEMP 97.2–98.8; O2SAT 100
[2017-04-05] MEDS: INSULIN NovoLIN REGULAR SUPPLEMENTAL SCALE SQ SCH ×4 (03:00→21:00)
[2017-04-05] MEDS: CHLORHEXIDINE GLUCONATE 2 % 1 PACK (2 CLOTHS) TOP SCH (04:00)
[2017-04-05] MEDS: RESP: ALBUTEROL 2.5 MG/IPRATROPIUM 0.5 MG NEB (PRN) INH ×2 (04:08→20:15)
[2017-04-05] MEDS: METOCLOPRAMIDE HCL 10 MG/2 ML VIAL IV PUSH SCH ×3 (05:12→23:52)
[2017-04-05 06:10] LABS: AUTOMATED NEUTROPHIL # 4.5 TH/MM3 (1.8-7.7); BASOPHIL # 0.1 TH/MM3 (0-0.2); BASOPHIL % 0.8 % (0.0-2.0); EOSINOPHIL # 0.2 TH/MM3 (0-0.4); EOSINOPHIL % 3.8 % (0.0-4.0); HEMATOCRIT 31.3 % (35.0-46.0); HEMO FLAGS DIFF FINAL; LYMPH % 19.9 % (9.0-44.0); LYMPHOCYTE # 1.3 TH/MM3 (1.0-4.8); MEAN CELL VOLUME 94.7 FL (80.0-100.0); MEAN CORPUSCULAR HEMOGLOBIN 31.2 PG (27.0-34.0); MEAN CORPUSCULAR HGB CONC 32.9 % (32.0-36.0); MONO % 7.8 % (0.0-8.0); NEUT % 67.7 % (16.0-70.0); PLATELET COUNT 280 TH/MM3 (150-450); RED BLOOD COUNT 3.31 MIL/MM3 (4.00-5.30); RED CELL DISTRIBUTION WIDTH 16.5 % (11.6-17.2); WHITE BLOOD COUNT 6.6 TH/MM3 (4.0-11.0)
[2017-04-05 06:40] LABS: BICARBONATE 31.2 MEQ/L (21.0-32.0)
[2017-04-05] MEDS: CHLORHEXIDINE 0.12% (ORAL KIT) 15 ML CUP MT SCH ×2 (08:00→20:00)
[2017-04-05] MEDS: DOCUSATE SODIUM 50 MG/SENNA 8.6 MG TAB PO SCH ×2 (08:59→21:00)
[2017-04-05] MEDS: LISINOPRIL 5 MG TAB PO SCH ×2 (08:59→09:00)
[2017-04-05] MEDS: HEPARIN SODIUM - SQ 10,000 UNITS/ML VIAL SQ SCH ×2 (08:59→23:36)
[2017-04-05] MEDS: PANTOPRAZOLE SODIUM 40 MG VIAL IV PUSH SCH ×2 (08:59→23:36)
[2017-04-05] MEDS: ASPIRIN 81 MG CHEW TAB CHEW SCH (08:59)
--- NOTE | 2017-04-05 09:27 | HHI.CCPN ---
Subjective Remarks/Hospital Course Patient is an 82-year-old female with past medical history significant for recurrent UTIs, atrial fibrillation, hypertension, dyslipidemia, dementia who was transferred from [place] emergency department after being diagnosed for NSTEMI. She presented with chest pain and EKG showed sinus tachycardia, and troponin was elevated at 4.43. Patient was given aspirin (by EMS) and started on IV heparin infusion. Patient was transferred to [facility] ICU per Dr. Keys's request. Other abnormal labs include BNP of 1330 and potassium of 3. Previous echo showed an ejection fraction of 45%. I evaluated the patient in the ICU. Appears in moderate distress, tachypneic, tachycardic, but denies chest pain (when asked in Eritrean by RN). Patient was seen by Dr. Keys in the ICU, not a candidate for cardiac catheterization on interventions at this time. 2-D echo is pending. UA shows evidence of UTI. Started on cefepime and Diflucan (yeast present in UA). Repeat troponin and lactic acid pending at this time. SUBJ 03/12: I rounded on patient at about 0830 AM, patient was communicative tachypneic but not in severe distress. I was emergently called to the bedside at 10:30 AM patient was unresponsive agonal breathing with blood pressure 60/29 , bradycardic. Emergently started on dopamine. Patient was not protecting airway and I emergently intubated and placed on mechanical ventilation. An emergency left subclavian central line also placed. Levophed was added due to persistent hypotension. Patient appears to be in severe cardiogenic shock. EF 15 -20% down from 40% on 03/04/17. Patient also has moderate to severe MR, moderate to severe TR with moderate to severe pulmonary hypertension. I have discussed with Dr. Keys, she does not think patient is a candidate for any invasive therapy due to advanced age and comorbidities including dementia. I have updated daughter Cata 03/13: Remains intubated sedated critically ill. Remains on 3 pressors (dopamine , Neftali-Synephrine, milrinone). Urine output diminishing. Patient is in multiorgan failure prognosis poor. Family wants to continue full aggressive care palliative care is following. Urine culture showing group D enterococcus and Soledad. Cefepime discontinued Zosyn started along with vancomycin and continue Diflucan 03/14 Patient is sedated with versed and intubated. On Neosyn 200 mics and Milrinone. T: 100.0 last night. Off Dopamine 03/15 Patient remains intubated and sedated with Versed 5mg/hr, Nesoyn down 112 mics and on Milrinone. Afebrile. s/p transfusion 1unit PRBC yesterday. 03/16 No events overnight. Remains sedated with versed and intubated. On Neosyn and Milrinone. 03/17 Patient is intubated and sedated, Neosyn 100mics and Milrinone. Afebrile. 03/18 No events overnight. On Neosyn is down to 37 mics, Milrinone and sedated with Versed. Afebrile. 03/19: no changes. off pressors. remains on inotrops. remains in significant cariogenic shock and volume overload. still on versed. no improvements. off pathway. family wants aggressive care. 03/20: we have made no improvements to cardiogenic shock requiring inotropic therapy. off pathway. I had a long discussion with family and they still want aggressive care, stating "she has been closer to than this, and she always gets better." I talked about need for tracheostomy, and they are agreeable. 03/21 Patient remains intubated off sedation. Afebrile. For possible trach today. On Neosyn 30 mics and Milrinone. 03/22 Patient s/p trach and PEG tube placement yesterday. Neosyn down 10 mics, on Milrinone. 03/23 Patient is off Neosyn, on Milrinone. Tolerating tube feeds. 03/24 No events overnight. off all pressors. On PRVC with PEEP: 5 and FIO2 35%. Tolerated CPAP x 2 hrs yesterday 03/25 Patient is on CPAP PS 15, PEEP:5 and FIO2 35%. Afebrile. Tolerating tube feeds. 03/26 No events overnight. Tolerated CPAP trials x 8 hrs yesterday. 03/27: In A. fib with RVR. No tolerating CPAP due to tachypnea. Chest x-ray shows right more than left basilar infiltrate probably effusion. IV metoprolol 2.5 mg 1 and 0.25 mg IV digoxin ordered. If rate not controlled plan on Cardizem infusion. May need thoracentesis 03/28 Patient is on Levophed 8 mics, spiked fever with T: 102.7. Patient had right sided thoracentesis followed by pigtail catheter placement. CXR post procedure showed 4mm right upper PTX. CXR this morning showed no evidence of PTX, LLL atelectasis vs consolidation. 03/29: MAXIMUM TEMPERATURE 100. Currently 99.0. Currently off norepinephrine drip. Did not tolerate CPAP trial today. Arousable and follows commands. Subjective 03/30: Tmax this morning 99.3. Off all vasopressors. Tolerated PSV trial 2.5 hours today. Arousable and follows commands. Responds to Eritrean. Understanding Uzbek 03/31 No events overnight. On no sedation. 04/01 No events overnight. On CPAP with PS 20, PEEP:5 and FIO2 35%. Afebrile. 04/02: No evidence overnight and no change in exam. Chest tube with virtually no output past [address] to [facility] and check a chest x-ray tomorrow morning 04/03 Patient remains on ventilator via trach. Afebrile. 04/04 No events overnight. Chest tube d/c yesterday CXR this morning decreased bibasilar consolidation and small effusions. Afebrile. 04/05 Patient remains on ventilator via trach. Tolerated CPAP for approx 10 hrs yesterday. Afebrile. On no drips. Objective Vital Signs Date Time Temp Pulse Resp B/P Pulse Ox O2 Delivery O2 Flow Rate FiO2 04/05/17 08:00 97.2 97 14 127/70 100 04/05/17 08:00 35 04/03/17 08:50 BiPAP/CPAP Intake and Output 04/04/17 04/04/17 04/05/17 08:00 16:00 00:00 Intake Total 478 ml 526 ml 419 ml Output Total 485 ml 275 ml 350 ml Balance -7 ml 251 ml 69 ml Result Diagram: 04/05/1752504/05/17525 Other Results Laboratory Tests Test 04/05/17 05:26 White Blood Count 6.6 TH/MM3 Red Blood Count 3.31 MIL/MM3 Hemoglobin 10.3 GM/DL Hematocrit 31.3 % Mean Corpuscular Volume 94.7 FL Mean Corpuscular Hemoglobin 31.2 PG Mean Corpuscular Hemoglobin 32.9 % Concent Red Cell Distribution Width 16.5 % Platelet Count 280 TH/MM3 Mean Platelet Volume 9.7 FL Neutrophils (%) (Auto) 67.7 % Lymphocytes (%) (Auto) 19.9 % Monocytes (%) (Auto) 7.8 % Eosinophils (%) (Auto) 3.8 % Basophils (%) (Auto) 0.8 % Neutrophils # (Auto) 4.5 TH/MM3 Lymphocytes # (Auto) 1.3 TH/MM3 Monocytes # (Auto) 0.5 TH/MM3 Eosinophils # (Auto) 0.2 TH/MM3 Basophils # (Auto) 0.1 TH/MM3 CBC Comment DIFF FINAL Differential Comment Sodium Level 144 MEQ/L Potassium Level 4.0 MEQ/L Chloride Level 105 MEQ/L Carbon Dioxide Level 31.2 MEQ/L Anion Gap 8 MEQ/L Blood Urea Nitrogen 28 MG/DL Creatinine 0.49 MG/DL Estimat Glomerular Filtration 120 ML/MIN Rate Random Glucose 105 MG/DL Calcium Level 8.8 MG/DL Imaging Last Impressions Chest X-Ray 04/04/17 0000 Signed Impressions: Service Date/Time: Tuesday, April 04, 2017 04:34 - CONCLUSION: Decreased bibasilar consolidation and small effusions. José Miguel Hodge MD Abdomen Ultrasound 03/16/17 0000 Signed Impressions: Service Date/Time: Thursday, March 16, 2017 20:35 - CONCLUSION: 1. Right renal cyst and multiple hepatic cysts. 2. Echogenic lesion in liver measures 1.8 cm likely hemangioma. Contrasted MRI may be warranted for confirmation. 3. Cholelithiasis. Evans Augustin MD Head CT 03/12/17 0000 Signed Impressions: Service Date/Time: Sunday, March 12, 2017 13:00 - CONCLUSION: 1. Cerebral atrophy and chronic ischemic small vessel vasculopathy. Evans Augustin MD Objective Remarks GENERAL: Patient is 82 yo female on ventilator via trach SKIN: Warm and dry. No rash HEAD: Normocephalic. EYES: No scleral icterus. No injection or drainage. NECK: Supple, trachea midline. No JVD or lymphadenopathy. Trach in place CARDIOVASCULAR: Tachycardic, no murmurs, gallops, or rubs. RESPIRATORY: Breath sounds equal bilaterally, diminished at bases. No accessory muscle use on the vent. Right chest tube -no output since am GASTROINTESTINAL: Abdomen soft, non-tender, nondistended. +PEG tube MUSCULOSKELETAL: Trace bilateral upper and lower extremity peripheral edema Neuro: On vent via trach. Moves all extremities when sedation lightened. Follows commands. A/P Assessment and Plan NEURO/PSYCH: Acute toxic metabolic encephalopathy Dementia disorder NOS Melatonin 5mg po qhs for improved sleep-wake orientation. Continue home donepezil 5 mg at night Encephalopathy most likely secondary to metabolic causes, much improved CT brain 03/12 :Cerebral atrophy and chronic ischemic small vessel vasculopathy. EEG showed mod. encephalopathy Hydromorphone 0.5 mg IV every 4 hours when necessary pain RESP: Acute respiratory failure- s/p trach 03/21 History of COPD Pulmonary artery hypertension Right pneumothorax Continue with vent support and keep sat >92% Ventilator bundle. DuoNeb scheduled and when necessary SBT trials as carley Pulm toilet, trach care CXR 04/04: Decreased bibasilar consolidation and small effusions. CV: NSTEMI Atrial fibrillation with rapid ventricular rate Cardiogenic shock Acute systolic heart failure Lactic acidosis Ischemic cardiomyopathy with ejection fraction 15-20% Moderate to severe mitral and tricuspid regurgitation History of A. fib Monitor HR and BP keep MAP>65mmHg. On Lisinopril 2.5 mg daily, Lopressor on hold for borderline low BP Ejection fraction 15-20% , in comparison to echocardiogram on 03/04/17 EF 40% Monitor HR and BP keep MAP>65mmHg GI: IV pantoprazole 40mg BID s/p transfusion 1unit PRBC, GI is following. On tube feeds-Suplena goal 50 ml/hr status post G-tube placement On metoclopramide 5mg IV Q8 : acute kidney injury- resolved Monitor renal function , I/O's, electrolytes replacement per protocol. ID: Candiduria 03/11 Urine culture growing Soledad and group D enterococcus(VRE) 03/14 Urine cx: C. Albicans Off abx- monitor for signs of infections ( Fever, WBC) ID has followed- Dr. Domínguez, signed off 03/22 HEME: Anemia Monitor CBC, CMP, coags s/p [id number] PRBC 03/14 and 03/29 ENDO: SSI for glycemic control. Electrolyte replacement protocol PROPH: Bilateral lower extremity SCDs. SQ Heparin, Protonix LINES: peripheral IV;s , kennel manager dog track is following for placement Palliative care following Level 3 Deepthi Griffiths MD Apr 05, 2017 09:27
[2017-04-05] MEDS: MELATONIN 5 MG TAB PO SCH (23:37)
[2017-04-05] MEDS: DONEPEZIL HCL 5 MG TAB PO SCH (23:50)
[2017-04-06] VITALS (24 sets, daily range): BP systolic 82–120; BP diastolic 47–65; PULSE 66–102; RESP 12–28; TEMP 98–98.8; O2SAT 98–100
[2017-04-06] MEDS: INSULIN NovoLIN REGULAR SUPPLEMENTAL SCALE SQ SCH ×3 (03:00→15:00)
[2017-04-06] MEDS: CHLORHEXIDINE GLUCONATE 2 % 1 PACK (2 CLOTHS) TOP SCH (04:00)
[2017-04-06 05:11] LABS: AUTOMATED NEUTROPHIL # 4.3 TH/MM3 (1.8-7.7); BASOPHIL # 0.1 TH/MM3 (0-0.2); BASOPHIL % 0.9 % (0.0-2.0); EOSINOPHIL # 0.1 TH/MM3 (0-0.4); EOSINOPHIL % 1.8 % (0.0-4.0); HEMATOCRIT 27.3 % (35.0-46.0); HEMO FLAGS DIFF FINAL; LYMPH % 15.9 % (9.0-44.0); MEAN CELL VOLUME 95.7 FL (80.0-100.0); MEAN CORPUSCULAR HEMOGLOBIN 32.3 PG (27.0-34.0); MEAN CORPUSCULAR HGB CONC 33.7 % (32.0-36.0); MONO % 9.9 % (0.0-8.0); NEUT % 71.5 % (16.0-70.0); PLATELET COUNT 247 TH/MM3 (150-450); RED BLOOD COUNT 2.86 MIL/MM3 (4.00-5.30); RED CELL DISTRIBUTION WIDTH 16.6 % (11.6-17.2)
[2017-04-06 05:20] LABS: BICARBONATE 30.8 MEQ/L (21.0-32.0); POTASSIUM 4.3 MEQ/L (3.5-5.1)
[2017-04-06] MEDS: HYDROmorphone HCL PF 1 MG/ML VIAL IV PRN (06:15)
[2017-04-06] MEDS: METOCLOPRAMIDE HCL 10 MG/2 ML VIAL IV PUSH SCH ×3 (06:16→20:08)
--- NOTE | 2017-04-06 07:27 | HHI.CCPN ---
Subjective Remarks/Hospital Course Patient is an 82-year-old female with past medical history significant for recurrent UTIs, atrial fibrillation, hypertension, dyslipidemia, dementia who was transferred from [place] emergency department after being diagnosed for NSTEMI. She presented with chest pain and EKG showed sinus tachycardia, and troponin was elevated at 4.43. Patient was given aspirin (by EMS) and started on IV heparin infusion. Patient was transferred to [facility] ICU per Dr. Keys's request. Other abnormal labs include BNP of 1330 and potassium of 3. Previous echo showed an ejection fraction of 45%. I evaluated the patient in the ICU. Appears in moderate distress, tachypneic, tachycardic, but denies chest pain (when asked in Ghanaian by RN). Patient was seen by Dr. Keys in the ICU, not a candidate for cardiac catheterization on interventions at this time. 2-D echo is pending. UA shows evidence of UTI. Started on cefepime and Diflucan (yeast present in UA). Repeat troponin and lactic acid pending at this time. SUBJ 03/12: I rounded on patient at about 0830 AM, patient was communicative tachypneic but not in severe distress. I was emergently called to the bedside at 10:30 AM patient was unresponsive agonal breathing with blood pressure 60/29 , bradycardic. Emergently started on dopamine. Patient was not protecting airway and I emergently intubated and placed on mechanical ventilation. An emergency left subclavian central line also placed. Levophed was added due to persistent hypotension. Patient appears to be in severe cardiogenic shock. EF 15 -20% down from 40% on 03/04/17. Patient also has moderate to severe MR, moderate to severe TR with moderate to severe pulmonary hypertension. I have discussed with Dr. Keys, she does not think patient is a candidate for any invasive therapy due to advanced age and comorbidities including dementia. I have updated daughter Cata 03/13: Remains intubated sedated critically ill. Remains on 3 pressors (dopamine , Neftali-Synephrine, milrinone). Urine output diminishing. Patient is in multiorgan failure prognosis poor. Family wants to continue full aggressive care palliative care is following. Urine culture showing group D enterococcus and Soledad. Cefepime discontinued Zosyn started along with vancomycin and continue Diflucan 03/14 Patient is sedated with versed and intubated. On Neosyn 200 mics and Milrinone. T: 100.0 last night. Off Dopamine 03/15 Patient remains intubated and sedated with Versed 5mg/hr, Nesoyn down 112 mics and on Milrinone. Afebrile. s/p transfusion 1unit PRBC yesterday. 03/16 No events overnight. Remains sedated with versed and intubated. On Neosyn and Milrinone. 03/17 Patient is intubated and sedated, Neosyn 100mics and Milrinone. Afebrile. 03/18 No events overnight. On Neosyn is down to 37 mics, Milrinone and sedated with Versed. Afebrile. 03/19: no changes. off pressors. remains on inotrops. remains in significant cariogenic shock and volume overload. still on versed. no improvements. off pathway. family wants aggressive care. 03/20: we have made no improvements to cardiogenic shock requiring inotropic therapy. off pathway. I had a long discussion with family and they still want aggressive care, stating "she has been closer to than this, and she always gets better." I talked about need for tracheostomy, and they are agreeable. 03/21 Patient remains intubated off sedation. Afebrile. For possible trach today. On Neosyn 30 mics and Milrinone. 03/22 Patient s/p trach and PEG tube placement yesterday. Neosyn down 10 mics, on Milrinone. 03/23 Patient is off Neosyn, on Milrinone. Tolerating tube feeds. 03/24 No events overnight. off all pressors. On PRVC with PEEP: 5 and FIO2 35%. Tolerated CPAP x 2 hrs yesterday 03/25 Patient is on CPAP PS 15, PEEP:5 and FIO2 35%. Afebrile. Tolerating tube feeds. 03/26 No events overnight. Tolerated CPAP trials x 8 hrs yesterday. 03/27: In A. fib with RVR. No tolerating CPAP due to tachypnea. Chest x-ray shows right more than left basilar infiltrate probably effusion. IV metoprolol 2.5 mg 1 and 0.25 mg IV digoxin ordered. If rate not controlled plan on Cardizem infusion. May need thoracentesis 03/28 Patient is on Levophed 8 mics, spiked fever with T: 102.7. Patient had right sided thoracentesis followed by pigtail catheter placement. CXR post procedure showed 4mm right upper PTX. CXR this morning showed no evidence of PTX, LLL atelectasis vs consolidation. 03/29: MAXIMUM TEMPERATURE 100. Currently 99.0. Currently off norepinephrine drip. Did not tolerate CPAP trial today. Arousable and follows commands. Subjective 03/30: Tmax this morning 99.3. Off all vasopressors. Tolerated PSV trial 2.5 hours today. Arousable and follows commands. Responds to Ghanaian. Understanding Slovak 03/31 No events overnight. On no sedation. 04/01 No events overnight. On CPAP with PS 20, PEEP:5 and FIO2 35%. Afebrile. 04/02: No evidence overnight and no change in exam. Chest tube with virtually no output past [address] to [facility] and check a chest x-ray tomorrow morning 04/03 Patient remains on ventilator via trach. Afebrile. 04/04 No events overnight. Chest tube d/c yesterday CXR this morning decreased bibasilar consolidation and small effusions. Afebrile. 04/05 Patient remains on ventilator via trach. Tolerated CPAP for approx 10 hrs yesterday. Afebrile. On no drips. 04/06 Patient became tachypneic and tachycardic on CPAP with PS 20 last night. Given Dilaudid early this morning. Afebrile. Tolerating tube feeds. Objective Vital Signs Date Time Temp Pulse Resp B/P Pulse Ox O2 Delivery O2 Flow Rate FiO2 04/06/17 06:00 101 04/06/17 05:39 100 35 04/06/17 04:00 98.3 14 87/51 04/03/17 08:50 BiPAP/CPAP Intake and Output 04/05/17 04/05/17 04/06/17 08:00 16:00 00:00 Intake Total 411 ml 472 ml 351 ml Output Total 350.0 ml 450 ml 400 ml Balance 61.0 ml 22 ml -49 ml Result Diagram: 04/06/17 0440 04/06/17 0440 Other Results Laboratory Tests Test 04/06/17 04:40 White Blood Count 6.0 TH/MM3 Red Blood Count 2.86 MIL/MM3 Hemoglobin 9.2 GM/DL Hematocrit 27.3 % Mean Corpuscular Volume 95.7 FL Mean Corpuscular Hemoglobin 32.3 PG Mean Corpuscular Hemoglobin 33.7 % Concent Red Cell Distribution Width 16.6 % Platelet Count 247 TH/MM3 Mean Platelet Volume 9.8 FL Neutrophils (%) (Auto) 71.5 % Lymphocytes (%) (Auto) 15.9 % Monocytes (%) (Auto) 9.9 % Eosinophils (%) (Auto) 1.8 % Basophils (%) (Auto) 0.9 % Neutrophils # (Auto) 4.3 TH/MM3 Lymphocytes # (Auto) 1.0 TH/MM3 Monocytes # (Auto) 0.6 TH/MM3 Eosinophils # (Auto) 0.1 TH/MM3 Basophils # (Auto) 0.1 TH/MM3 CBC Comment DIFF FINAL Differential Comment Sodium Level 144 MEQ/L Potassium Level 4.3 MEQ/L Chloride Level 107 MEQ/L Carbon Dioxide Level 30.8 MEQ/L Anion Gap 6 MEQ/L Blood Urea Nitrogen 30 MG/DL Creatinine 0.48 MG/DL Estimat Glomerular Filtration 123 ML/MIN Rate Random Glucose 102 MG/DL Calcium Level 8.5 MG/DL Imaging Last Impressions Chest X-Ray 04/04/17 0000 Signed Impressions: Service Date/Time: Tuesday, April 04, 2017 04:34 - CONCLUSION: Decreased bibasilar consolidation and small effusions. José Miguel Hodge MD Abdomen Ultrasound 03/16/17 0000 Signed Impressions: Service Date/Time: Thursday, March 16, 2017 20:35 - CONCLUSION: 1. Right renal cyst and multiple hepatic cysts. 2. Echogenic lesion in liver measures 1.8 cm likely hemangioma. Contrasted MRI may be warranted for confirmation. 3. Cholelithiasis. Evans Augustin MD Head CT 03/12/17 0000 Signed Impressions: Service Date/Time: Sunday, March 12, 2017 13:00 - CONCLUSION: 1. Cerebral atrophy and chronic ischemic small vessel vasculopathy. Evans Augustin MD Objective Remarks GENERAL: Patient is 82 yo female on ventilator via trach SKIN: Warm and dry. No rash HEAD: Normocephalic. EYES: No scleral icterus. No injection or drainage. NECK: Supple, trachea midline. No JVD or lymphadenopathy. Trach in place CARDIOVASCULAR: Tachycardic, no murmurs, gallops, or rubs. RESPIRATORY: Breath sounds equal bilaterally, diminished at bases. No accessory muscle use on the vent. Right chest tube -no output since am GASTROINTESTINAL: Abdomen soft, non-tender, nondistended. +PEG tube MUSCULOSKELETAL: Trace bilateral upper and lower extremity peripheral edema Neuro: On vent via trach. Moves all extremities when sedation lightened. Follows commands. A/P Assessment and Plan NEURO/PSYCH: Acute toxic metabolic encephalopathy Dementia disorder NOS Melatonin 5mg po qhs for improved sleep-wake orientation. Continue home donepezil 5 mg at night Encephalopathy most likely secondary to metabolic causes, much improved CT brain 03/12 :Cerebral atrophy and chronic ischemic small vessel vasculopathy. EEG showed mod. encephalopathy Hydromorphone 0.5 mg IV every 4 hours when necessary pain RESP: Acute respiratory failure- s/p trach 03/21 History of COPD Pulmonary artery hypertension Right pneumothorax Continue with vent support and keep sat >92% Ventilator bundle. DuoNeb scheduled and when necessary SBT trials as carley Pulm toilet, trach care CXR 04/04: Decreased bibasilar consolidation and small effusions. CV: NSTEMI Atrial fibrillation with rapid ventricular rate Cardiogenic shock Acute systolic heart failure Lactic acidosis Ischemic cardiomyopathy with ejection fraction 15-20% Moderate to severe mitral and tricuspid regurgitation History of A. fib Monitor HR and BP keep MAP>65mmHg. On Lisinopril 2.5 mg daily, Lopressor on hold for borderline low BP Ejection fraction 15-20% , in comparison to echocardiogram on 03/04/17 EF 40% Monitor HR and BP keep MAP>65mmHg GI: IV pantoprazole 40mg BID GI is following. On tube feeds-Suplena goal 50 ml/hr status post G-tube placement On metoclopramide 5mg IV Q8 : acute kidney injury- resolved Monitor renal function , I/O's, electrolytes replacement per protocol. ID: Candiduria 03/11 Urine culture growing Soledad and group D enterococcus(VRE) 03/14 Urine cx: C. Albicans Off abx- monitor for signs of infections ( Fever, WBC) ID has followed- Dr. Domínguez, signed off 03/22 HEME: Anemia Monitor CBC, CMP, coags s/p [id number] PRBC 03/14 and 03/29 ENDO: SSI for glycemic control. Electrolyte replacement protocol PROPH: Bilateral lower extremity SCDs. SQ Heparin, Protonix LINES: peripheral IV;s , shopping centre manager is following for placement Palliative care following Level 2 Deepthi Griffiths MD Apr 06, 2017 07:27
[2017-04-06] MEDS: ASPIRIN 81 MG CHEW TAB CHEW SCH (09:03)
[2017-04-06] MEDS: DOCUSATE SODIUM 50 MG/SENNA 8.6 MG TAB PO SCH ×2 (09:03→20:07)
[2017-04-06] MEDS: LISINOPRIL 5 MG TAB PO SCH (09:04)
[2017-04-06] MEDS: HEPARIN SODIUM - SQ 10,000 UNITS/ML VIAL SQ SCH ×2 (09:04→20:08)
[2017-04-06] MEDS: CHLORHEXIDINE 0.12% (ORAL KIT) 15 ML CUP MT SCH ×2 (09:04→20:08)
[2017-04-06] MEDS: PANTOPRAZOLE SODIUM 40 MG VIAL IV PUSH SCH ×2 (09:04→20:08)
[2017-04-06] MEDS: MELATONIN 5 MG TAB PO SCH (20:07)
[2017-04-06] MEDS: DONEPEZIL HCL 5 MG TAB PO SCH (20:07)
[2017-04-07] VITALS (19 sets, daily range): BP systolic 93–148; BP diastolic 55–99; PULSE 72–141; RESP 14–36; TEMP 98–98.9; O2SAT 95–100
[2017-04-07] MEDS: HALOPERIDOL LACTATE 5 MG/ML AMP IV PUSH PRN ×3 (00:09→21:08)
[2017-04-07] MEDS ORDERED: LORazepam 2 MG/ML VIAL ONE (04:25)
[2017-04-07] MEDS: METOCLOPRAMIDE HCL 10 MG/2 ML VIAL IV PUSH SCH (04:59)
[2017-04-07] MEDS ORDERED: LORazepam 2 MG/ML VIAL IV ONE (05:45)
[2017-04-07 06:53] LABS: AUTOMATED NEUTROPHIL # 7.7 TH/MM3 (1.8-7.7); BASOPHIL # 0.1 TH/MM3 (0-0.2); BASOPHIL % 0.6 % (0.0-2.0); EOSINOPHIL # 0.1 TH/MM3 (0-0.4); EOSINOPHIL % 1.4 % (0.0-4.0); HEMATOCRIT 34.2 % (35.0-46.0); HEMO FLAGS DIFF FINAL; LYMPH % 15.4 % (9.0-44.0); LYMPHOCYTE # 1.6 TH/MM3 (1.0-4.8); MEAN CELL VOLUME 97.3 FL (80.0-100.0); MEAN CORPUSCULAR HEMOGLOBIN 31.3 PG (27.0-34.0); MEAN CORPUSCULAR HGB CONC 32.2 % (32.0-36.0); MONO % 8.6 % (0.0-8.0); PLATELET COUNT 434 TH/MM3 (150-450); RED BLOOD COUNT 3.51 MIL/MM3 (4.00-5.30); RED CELL DISTRIBUTION WIDTH 17.3 % (11.6-17.2); WHITE BLOOD COUNT 10.4 TH/MM3 (4.0-11.0)
--- NOTE | 2017-04-07 07:00 | HHI.CCPN ---
Subjective Remarks/Hospital Course Patient is an 82-year-old female with past medical history significant for recurrent UTIs, atrial fibrillation, hypertension, dyslipidemia, dementia who was transferred from [place] emergency department after being diagnosed for NSTEMI. She presented with chest pain and EKG showed sinus tachycardia, and troponin was elevated at 4.43. Patient was given aspirin (by EMS) and started on IV heparin infusion. Patient was transferred to [facility] ICU per Dr. Keys's request. Other abnormal labs include BNP of 1330 and potassium of 3. Previous echo showed an ejection fraction of 45%. I evaluated the patient in the ICU. Appears in moderate distress, tachypneic, tachycardic, but denies chest pain (when asked in Fijian by RN). Patient was seen by Dr. Keys in the ICU, not a candidate for cardiac catheterization on interventions at this time. 2-D echo is pending. UA shows evidence of UTI. Started on cefepime and Diflucan (yeast present in UA). Repeat troponin and lactic acid pending at this time. SUBJ 03/12: I rounded on patient at about 0830 AM, patient was communicative tachypneic but not in severe distress. I was emergently called to the bedside at 10:30 AM patient was unresponsive agonal breathing with blood pressure 60/29 , bradycardic. Emergently started on dopamine. Patient was not protecting airway and I emergently intubated and placed on mechanical ventilation. An emergency left subclavian central line also placed. Levophed was added due to persistent hypotension. Patient appears to be in severe cardiogenic shock. EF 15 -20% down from 40% on 03/04/17. Patient also has moderate to severe MR, moderate to severe TR with moderate to severe pulmonary hypertension. I have discussed with Dr. Keys, she does not think patient is a candidate for any invasive therapy due to advanced age and comorbidities including dementia. I have updated daughter Cata 03/13: Remains intubated sedated critically ill. Remains on 3 pressors (dopamine , Neftali-Synephrine, milrinone). Urine output diminishing. Patient is in multiorgan failure prognosis poor. Family wants to continue full aggressive care palliative care is following. Urine culture showing group D enterococcus and Soledad. Cefepime discontinued Zosyn started along with vancomycin and continue Diflucan 03/14 Patient is sedated with versed and intubated. On Neosyn 200 mics and Milrinone. T: 100.0 last night. Off Dopamine 03/15 Patient remains intubated and sedated with Versed 5mg/hr, Nesoyn down 112 mics and on Milrinone. Afebrile. s/p transfusion 1unit PRBC yesterday. 03/16 No events overnight. Remains sedated with versed and intubated. On Neosyn and Milrinone. 03/17 Patient is intubated and sedated, Neosyn 100mics and Milrinone. Afebrile. 03/18 No events overnight. On Neosyn is down to 37 mics, Milrinone and sedated with Versed. Afebrile. 03/19: no changes. off pressors. remains on inotrops. remains in significant cariogenic shock and volume overload. still on versed. no improvements. off pathway. family wants aggressive care. 03/20: we have made no improvements to cardiogenic shock requiring inotropic therapy. off pathway. I had a long discussion with family and they still want aggressive care, stating "she has been closer to than this, and she always gets better." I talked about need for tracheostomy, and they are agreeable. 03/21 Patient remains intubated off sedation. Afebrile. For possible trach today. On Neosyn 30 mics and Milrinone. 03/22 Patient s/p trach and PEG tube placement yesterday. Neosyn down 10 mics, on Milrinone. 03/23 Patient is off Neosyn, on Milrinone. Tolerating tube feeds. 03/24 No events overnight. off all pressors. On PRVC with PEEP: 5 and FIO2 35%. Tolerated CPAP x 2 hrs yesterday 03/25 Patient is on CPAP PS 15, PEEP:5 and FIO2 35%. Afebrile. Tolerating tube feeds. 03/26 No events overnight. Tolerated CPAP trials x 8 hrs yesterday. 03/27: In A. fib with RVR. No tolerating CPAP due to tachypnea. Chest x-ray shows right more than left basilar infiltrate probably effusion. IV metoprolol 2.5 mg 1 and 0.25 mg IV digoxin ordered. If rate not controlled plan on Cardizem infusion. May need thoracentesis 03/28 Patient is on Levophed 8 mics, spiked fever with T: 102.7. Patient had right sided thoracentesis followed by pigtail catheter placement. CXR post procedure showed 4mm right upper PTX. CXR this morning showed no evidence of PTX, LLL atelectasis vs consolidation. 03/29: MAXIMUM TEMPERATURE 100. Currently 99.0. Currently off norepinephrine drip. Did not tolerate CPAP trial today. Arousable and follows commands. Subjective 03/30: Tmax this morning 99.3. Off all vasopressors. Tolerated PSV trial 2.5 hours today. Arousable and follows commands. Responds to Fijian. Understanding Spanish 03/31 No events overnight. On no sedation. 04/01 No events overnight. On CPAP with PS 20, PEEP:5 and FIO2 35%. Afebrile. 04/02: No evidence overnight and no change in exam. Chest tube with virtually no output past [address] [facility] and check a chest x-ray tomorrow morning 04/03 Patient remains on ventilator via trach. Afebrile. 04/04 No events overnight. Chest tube d/c yesterday CXR this morning decreased bibasilar consolidation and small effusions. Afebrile. 04/05 Patient remains on ventilator via trach. Tolerated CPAP for approx 10 hrs yesterday. Afebrile. On no drips. 04/06 Patient became tachypneic and tachycardic on CPAP with PS 20 last night. Given Dilaudid early this morning. Afebrile. Tolerating tube feeds. 04/07 Patient was agitated overnight, tachycardic and tachypneic given Haldol and Ativan shortly after became hypotensive and was started on Levophed currently 10 mics BP 122/72( MAP 92mmHg). Afebrile. Objective Vital Signs Date Time Temp Pulse Resp B/P Pulse Ox O2 Delivery O2 Flow Rate FiO2 04/07/17 06:00 105 04/07/17 04:00 35 04/07/17 04:00 98.4 36 148/99 95 04/03/17 08:50 BiPAP/CPAP Intake and Output 04/06/17 04/06/17 04/07/17 08:00 16:00 00:00 Intake Total 342 ml 452 ml 715 ml Output Total 400.0 ml 650 ml 375 ml Balance -58.0 ml -198 ml 340 ml Result Diagram: 04/06/17 0440 04/06/17 0440 Imaging Last Impressions Chest X-Ray 04/04/17 0000 Signed Impressions: Service Date/Time: Tuesday, April 04, 2017 04:34 - CONCLUSION: Decreased bibasilar consolidation and small effusions. José Miguel Hodge MD Abdomen Ultrasound 03/16/17 0000 Signed Impressions: Service Date/Time: Thursday, March 16, 2017 20:35 - CONCLUSION: 1. Right renal cyst and multiple hepatic cysts. 2. Echogenic lesion in liver measures 1.8 cm likely hemangioma. Contrasted MRI may be warranted for confirmation. 3. Cholelithiasis. Evans Augustin MD Head CT 03/12/17 0000 Signed Impressions: Service Date/Time: Sunday, March 12, 2017 13:00 - CONCLUSION: 1. Cerebral atrophy and chronic ischemic small vessel vasculopathy. Evans Augustin MD Objective Remarks GENERAL: Patient is 82 yo female on ventilator via trach SKIN: Warm and dry. No rash HEAD: Normocephalic. EYES: No scleral icterus. No injection or drainage. NECK: Supple, trachea midline. No JVD or lymphadenopathy. Trach in place CARDIOVASCULAR: Tachycardic, no murmurs, gallops, or rubs. RESPIRATORY: Breath sounds equal bilaterally, diminished at bases. No accessory muscle use on the vent. Right chest tube -no output since am GASTROINTESTINAL: Abdomen soft, non-tender, nondistended. +PEG tube MUSCULOSKELETAL: Trace bilateral upper and lower extremity peripheral edema Neuro: On vent via trach. Moves all extremities when sedation lightened. Follows commands. A/P Assessment and Plan NEURO/PSYCH: Acute toxic metabolic encephalopathy Dementia disorder NOS Melatonin 5mg po qhs for improved sleep-wake orientation. Continue home donepezil 5 mg at night Encephalopathy most likely secondary to metabolic causes, much improved CT brain 03/12 :Cerebral atrophy and chronic ischemic small vessel vasculopathy. EEG showed mod. encephalopathy Hydromorphone 0.5 mg IV every 4 hours when necessary pain RESP: Acute respiratory failure- s/p trach 03/21 History of COPD Pulmonary artery hypertension Right pneumothorax Continue with vent support and keep sat >92% Ventilator bundle. DuoNeb scheduled and when necessary SBT trials as carley Pulm toilet, trach care CXR 04/04: Decreased bibasilar consolidation and small effusions. Check CXR and ABG CV: NSTEMI Atrial fibrillation with rapid ventricular rate Cardiogenic shock Acute systolic heart failure Lactic acidosis Ischemic cardiomyopathy with ejection fraction 15-20% Moderate to severe mitral and tricuspid regurgitation History of A. fib Monitor HR and BP keep MAP>65mmHg. Wean off Levophed keep MAP >65mmHg. Hold Lisinopril Ejection fraction 15-20% , in comparison to echocardiogram on 03/04/17 EF 40% Monitor HR and BP keep MAP>65mmHg GI: IV pantoprazole 40mg BID GI is following. On tube feeds-Suplena goal 50 ml/hr status post G-tube placement : acute kidney injury- resolved Monitor renal function , I/O's, electrolytes replacement per protocol. ID: Candiduria 03/11 Urine culture growing Soledad and group D enterococcus(VRE) 03/14 Urine cx: C. Albicans Off abx- monitor for signs of infections ( Fever, WBC) ID has followed- Dr. Domínguez, signed off 03/22 HEME: Anemia Monitor CBC, CMP, coags s/p [id number] PRBC 03/14 and 03/29 ENDO: SSI for glycemic control. Electrolyte replacement protocol PROPH: Bilateral lower extremity SCDs. SQ Heparin, Protonix LINES: peripheral IV;s , ag service manager is following for placement Palliative care following Follow up on labs Level 3 Deepthi Griffiths MD Apr 07, 2017 07:00
[2017-04-07 07:21] LABS: BICARBONATE 27.9 MEQ/L (21.0-32.0); POTASSIUM 4.7 MEQ/L (3.5-5.1)
--- NOTE | 2017-04-07 07:44 | RADRPT ---
EXAM DATE/TIME: 04/07/2017 07:20 [place] COMPARISON: CHEST SINGLE AP, April 04, 2017, 4:34. INDICATIONS : Respiratory disease. MEDICAL HISTORY : Hypertension. Arthritis SURGICAL HISTORY : None. ENCOUNTER: Subsequent ACUITY: 1 week PAIN SCORE: Non-responsive. LOCATION: Bilateral chest FINDINGS: A tracheostomy tube has its tip 5 cm above the glenroy in good position. Perihilar and bibasilar patc hiness is noted and is unchanged compared to the previous examination. The heart is stable. Degener ative changes and scoliosis of the thoracolumbar spine are noted. CONCLUSION: 1. Perihilar and bibasilar patchiness is stable compared to the previous examination. 2. Degenerative changes and scoliosis of the thoracolumbar spine. Frederick Smyth MD on April 07, 2017 at 7:32 Board Certified Radiologist. This report was verified electronically.
[2017-04-07] MEDS ORDERED: BUMETANIDE INJ 1 MG/4 ML VIAL IV PUSH ONE (08:00)
[2017-04-07] MEDS: DOCUSATE SODIUM 50 MG/SENNA 8.6 MG TAB PO SCH ×2 (09:00→19:53)
[2017-04-07] MEDS: CHLORHEXIDINE GLUCONATE 2 % 1 PACK (2 CLOTHS) TOP SCH (09:01)
[2017-04-07] MEDS: HEPARIN SODIUM - SQ 10,000 UNITS/ML VIAL SQ SCH ×2 (09:03→19:54)
[2017-04-07] MEDS: ASPIRIN 81 MG CHEW TAB CHEW SCH (09:03)
[2017-04-07] MEDS: PANTOPRAZOLE SODIUM 40 MG VIAL IV PUSH SCH ×2 (09:03→19:53)
[2017-04-07] MEDS: CHLORHEXIDINE 0.12% (ORAL KIT) 15 ML CUP MT SCH ×2 (09:06→19:52)
[2017-04-07 10:22] LABS: BLOOD GAS BASE EXCESS 5.4 mmol/L (-2-2); BLOOD GAS CARBOXYHEMOGLOBIN 2.3 % (0-4); BLOOD GAS HCO3 30 mmol/L (22-26); BLOOD GAS O2 HGB SATURATION 95 % (90-100); BLOOD GAS OXYGEN CONTENT 12.8 Vol % (12.0-20.0); BLOOD GAS PCO2 45 mmHg (38-42); BLOOD GAS PO2 107 mmHg (61-120); BLOOD GAS TOTAL HGB 9.4 G/DL (12.0-16.0); CRITICAL VALUE NO; OXYGEN DEVICE VENTILATOR; TEMP CORR TO 98.6
[2017-04-07 10:23] LABS: DRAW SITE LT BRACHIAL; FIO2 35 %; NUMBER OF ARTERIAL PUNCTURES 2; STAT NO; ULNAR PULSE PRESENT; VENT SETTINGS AC 14/550/+5
--- NOTE | 2017-04-07 18:06 | PD.WCN.NOT ---
Wound Consult Description: Wound management of anterior neck under trach site stage 2 device related pressure injury Communicated with: JUW[place] Guzman [facility] [place] Recommendation: Please cleanse wound gently under trach site with normal saline and apply optifoam basic non adhesive Change dressing every 2 days or PRN if saturated or dislodged Additional Information: Patient seen on [facility] for wound management of anterior neck under trach site. JUWAN Guzman Mar removed gauze dressing in place to reveal dry stage 2 device related pressure injury. Wound appears 100% pink and partial thickness. Wound appears to be resolving. Wound measures ~0.5cm x ~1cm x ~<0.1cm. JUWAN Guzman to apply optifoam basic non adhesive under trach site when supplies obtained. Nicolette Whipple [facility] Apr 07, 2017 18:06
[2017-04-07] MEDS: MELATONIN 5 MG TAB PO SCH (19:53)
[2017-04-07] MEDS: DONEPEZIL HCL 5 MG TAB PO SCH (19:53)
[2017-04-08] VITALS (22 sets, daily range): BP systolic 80–145; BP diastolic 51–91; PULSE 78–135; RESP 15–31; TEMP 97.6–98.4; O2SAT 92–100
[2017-04-08] MEDS: CHLORHEXIDINE GLUCONATE 2 % 1 PACK (2 CLOTHS) TOP SCH (04:20)
[2017-04-08] MEDS: HALOPERIDOL LACTATE 5 MG/ML AMP IV PUSH PRN ×3 (04:20→23:07)
[2017-04-08] MEDS ORDERED: HALOPERIDOL LACTATE 5 MG/ML AMP IV PUSH ONE (05:30)
[2017-04-08 06:25] LABS: AUTOMATED NEUTROPHIL # 6.6 TH/MM3 (1.8-7.7); BASOPHIL # 0.1 TH/MM3 (0-0.2); BASOPHIL % 0.9 % (0.0-2.0); EOSINOPHIL # 0.2 TH/MM3 (0-0.4); EOSINOPHIL % 2.1 % (0.0-4.0); HEMATOCRIT 30.8 % (35.0-46.0); HEMO FLAGS DIFF FINAL; LYMPH % 14.8 % (9.0-44.0); LYMPHOCYTE # 1.3 TH/MM3 (1.0-4.8); MEAN CELL VOLUME 96.3 FL (80.0-100.0); MEAN CORPUSCULAR HEMOGLOBIN 32.2 PG (27.0-34.0); MEAN CORPUSCULAR HGB CONC 33.4 % (32.0-36.0); MONO % 7.6 % (0.0-8.0); NEUT % 74.6 % (16.0-70.0); PLATELET COUNT 399 TH/MM3 (150-450); RED BLOOD COUNT 3.19 MIL/MM3 (4.00-5.30); RED CELL DISTRIBUTION WIDTH 17.3 % (11.6-17.2); WHITE BLOOD COUNT 8.9 TH/MM3 (4.0-11.0)
[2017-04-08 06:45] LABS: BICARBONATE 30.1 MEQ/L (21.0-32.0); POTASSIUM 4.6 MEQ/L (3.5-5.1)
[2017-04-08] MEDS: ASPIRIN 81 MG CHEW TAB CHEW SCH (08:53)
[2017-04-08] MEDS: HEPARIN SODIUM - SQ 10,000 UNITS/ML VIAL SQ SCH ×2 (08:54→21:41)
[2017-04-08] MEDS: PANTOPRAZOLE SODIUM 40 MG VIAL IV PUSH SCH ×2 (08:54→21:40)
[2017-04-08] MEDS: DOCUSATE SODIUM 50 MG/SENNA 8.6 MG TAB PO SCH ×2 (08:54→21:40)
[2017-04-08] MEDS: CHLORHEXIDINE 0.12% (ORAL KIT) 15 ML CUP MT SCH ×2 (08:56→21:40)
--- NOTE | 2017-04-08 11:01 | HHI.CCPN ---
Subjective Remarks/Hospital Course Patient is an 82-year-old female with past medical history significant for recurrent UTIs, atrial fibrillation, hypertension, dyslipidemia, dementia who was transferred from [place] emergency department after being diagnosed for NSTEMI. She presented with chest pain and EKG showed sinus tachycardia, and troponin was elevated at 4.43. Patient was given aspirin (by EMS) and started on IV heparin infusion. Patient was transferred to [facility] ICU per Dr. Keys's request. Other abnormal labs include BNP of 1330 and potassium of 3. Previous echo showed an ejection fraction of 45%. I evaluated the patient in the ICU. Appears in moderate distress, tachypneic, tachycardic, but denies chest pain (when asked in Zimbabwean by RN). Patient was seen by Dr. Keys in the ICU, not a candidate for cardiac catheterization on interventions at this time. 2-D echo is pending. UA shows evidence of UTI. Started on cefepime and Diflucan (yeast present in UA). Repeat troponin and lactic acid pending at this time. SUBJ 03/12: I rounded on patient at about 0830 AM, patient was communicative tachypneic but not in severe distress. I was emergently called to the bedside at 10:30 AM patient was unresponsive agonal breathing with blood pressure 60/29 , bradycardic. Emergently started on dopamine. Patient was not protecting airway and I emergently intubated and placed on mechanical ventilation. An emergency left subclavian central line also placed. Levophed was added due to persistent hypotension. Patient appears to be in severe cardiogenic shock. EF 15 -20% down from 40% on 03/04/17. Patient also has moderate to severe MR, moderate to severe TR with moderate to severe pulmonary hypertension. I have discussed with Dr. Keys, she does not think patient is a candidate for any invasive therapy due to advanced age and comorbidities including dementia. I have updated daughter Cata 03/13: Remains intubated sedated critically ill. Remains on 3 pressors (dopamine , Neftali-Synephrine, milrinone). Urine output diminishing. Patient is in multiorgan failure prognosis poor. Family wants to continue full aggressive care palliative care is following. Urine culture showing group D enterococcus and Soledad. Cefepime discontinued Zosyn started along with vancomycin and continue Diflucan 03/14 Patient is sedated with versed and intubated. On Neosyn 200 mics and Milrinone. T: 100.0 last night. Off Dopamine 03/15 Patient remains intubated and sedated with Versed 5mg/hr, Nesoyn down 112 mics and on Milrinone. Afebrile. s/p transfusion 1unit PRBC yesterday. 03/16 No events overnight. Remains sedated with versed and intubated. On Neosyn and Milrinone. 03/17 Patient is intubated and sedated, Neosyn 100mics and Milrinone. Afebrile. 03/18 No events overnight. On Neosyn is down to 37 mics, Milrinone and sedated with Versed. Afebrile. 03/19: no changes. off pressors. remains on inotrops. remains in significant cariogenic shock and volume overload. still on versed. no improvements. off pathway. family wants aggressive care. 03/20: we have made no improvements to cardiogenic shock requiring inotropic therapy. off pathway. I had a long discussion with family and they still want aggressive care, stating "she has been closer to than this, and she always gets better." I talked about need for tracheostomy, and they are agreeable. 03/21 Patient remains intubated off sedation. Afebrile. For possible trach today. On Neosyn 30 mics and Milrinone. 03/22 Patient s/p trach and PEG tube placement yesterday. Neosyn down 10 mics, on Milrinone. 03/23 Patient is off Neosyn, on Milrinone. Tolerating tube feeds. 03/24 No events overnight. off all pressors. On PRVC with PEEP: 5 and FIO2 35%. Tolerated CPAP x 2 hrs yesterday 03/25 Patient is on CPAP PS 15, PEEP:5 and FIO2 35%. Afebrile. Tolerating tube feeds. 03/26 No events overnight. Tolerated CPAP trials x 8 hrs yesterday. 03/27: In A. fib with RVR. No tolerating CPAP due to tachypnea. Chest x-ray shows right more than left basilar infiltrate probably effusion. IV metoprolol 2.5 mg 1 and 0.25 mg IV digoxin ordered. If rate not controlled plan on Cardizem infusion. May need thoracentesis 03/28 Patient is on Levophed 8 mics, spiked fever with T: 102.7. Patient had right sided thoracentesis followed by pigtail catheter placement. CXR post procedure showed 4mm right upper PTX. CXR this morning showed no evidence of PTX, LLL atelectasis vs consolidation. 03/29: MAXIMUM TEMPERATURE 100. Currently 99.0. Currently off norepinephrine drip. Did not tolerate CPAP trial today. Arousable and follows commands. Subjective 03/30: Tmax this morning 99.3. Off all vasopressors. Tolerated PSV trial 2.5 hours today. Arousable and follows commands. Responds to Zimbabwean. Understanding Estonian 03/31 No events overnight. On no sedation. 04/01 No events overnight. On CPAP with PS 20, PEEP:5 and FIO2 35%. Afebrile. 04/02: No evidence overnight and no change in exam. Chest tube with virtually no output past [address] to [facility] and check a chest x-ray tomorrow morning 04/03 Patient remains on ventilator via trach. Afebrile. 04/04 No events overnight. Chest tube d/c yesterday CXR this morning decreased bibasilar consolidation and small effusions. Afebrile. 04/05 Patient remains on ventilator via trach. Tolerated CPAP for approx 10 hrs yesterday. Afebrile. On no drips. 04/06 Patient became tachypneic and tachycardic on CPAP with PS 20 last night. Given Dilaudid early this morning. Afebrile. Tolerating tube feeds. 04/07 Patient was agitated overnight, tachycardic and tachypneic given Haldol and Ativan shortly after became hypotensive and was started on Levophed currently 10 mics BP 122/72( MAP 92mmHg). Afebrile. 04/08 Patient remains on ventilator via trach. Afebrile. Off Levophed. Given Haldol last night for agitation. Objective Vital Signs Date Time Temp Pulse Resp B/P Pulse Ox O2 Delivery O2 Flow Rate FiO2 04/08/17 08:23 100 35 04/08/17 06:00 126 04/08/17 04:00 98.4 15 85/53 Intake and Output 04/07/17 04/07/17 04/08/17 08:00 16:00 00:00 Intake Total 334 ml 570 ml 344 ml Output Total 200 ml 950 ml 600 ml Balance 134 ml -380 ml -256 ml Result Diagram: 04/08/17 0552 04/08/17 0552 Other Results Laboratory Tests Test 04/08/17 05:52 White Blood Count 8.9 TH/MM3 Red Blood Count 3.19 MIL/MM3 Hemoglobin 10.3 GM/DL Hematocrit 30.8 % Mean Corpuscular Volume 96.3 FL Mean Corpuscular Hemoglobin 32.2 PG Mean Corpuscular Hemoglobin 33.4 % Concent Red Cell Distribution Width 17.3 % Platelet Count 399 TH/MM3 Mean Platelet Volume 10.1 FL Neutrophils (%) (Auto) 74.6 % Lymphocytes (%) (Auto) 14.8 % Monocytes (%) (Auto) 7.6 % Eosinophils (%) (Auto) 2.1 % Basophils (%) (Auto) 0.9 % Neutrophils # (Auto) 6.6 TH/MM3 Lymphocytes # (Auto) 1.3 TH/MM3 Monocytes # (Auto) 0.7 TH/MM3 Eosinophils # (Auto) 0.2 TH/MM3 Basophils # (Auto) 0.1 TH/MM3 CBC Comment DIFF FINAL Differential Comment Sodium Level 143 MEQ/L Potassium Level 4.6 MEQ/L Chloride Level 106 MEQ/L Carbon Dioxide Level 30.1 MEQ/L Anion Gap 7 MEQ/L Blood Urea Nitrogen 38 MG/DL Creatinine 0.57 MG/DL Estimat Glomerular Filtration 101 ML/MIN Rate Random Glucose 157 MG/DL Calcium Level 9.1 MG/DL Imaging Last Impressions Chest X-Ray 04/07/17 0000 Signed Impressions: Service Date/Time: Friday, April 07, 2017 07:20 - CONCLUSION: 1. Perihilar and bibasilar patchiness is stable compared to the previous examination. 2. Degenerative changes and scoliosis of the thoracolumbar spine. Frederick Smyth MD Abdomen Ultrasound 03/16/17 0000 Signed Impressions: Service Date/Time: Thursday, March 16, 2017 20:35 - CONCLUSION: 1. Right renal cyst and multiple hepatic cysts. 2. Echogenic lesion in liver measures 1.8 cm likely hemangioma. Contrasted MRI may be warranted for confirmation. 3. Cholelithiasis. Evans Augustin MD Head CT 03/12/17 0000 Signed Impressions: Service Date/Time: Sunday, March 12, 2017 13:00 - CONCLUSION: 1. Cerebral atrophy and chronic ischemic small vessel vasculopathy. Evans Augustin MD Objective Remarks GENERAL: Patient is 82 yo female on ventilator via trach SKIN: Warm and dry. No rash HEAD: Normocephalic. EYES: No scleral icterus. No injection or drainage. NECK: Supple, trachea midline. No JVD or lymphadenopathy. Trach in place CARDIOVASCULAR: Tachycardic, no murmurs, gallops, or rubs. RESPIRATORY: Breath sounds equal bilaterally, diminished at bases. No accessory muscle use on the vent. Right chest tube -no output since am GASTROINTESTINAL: Abdomen soft, non-tender, nondistended. +PEG tube MUSCULOSKELETAL: Trace bilateral upper and lower extremity peripheral edema Neuro: On vent via trach. Moves all extremities when sedation lightened. Follows commands. A/P Assessment and Plan NEURO/PSYCH: Acute toxic metabolic encephalopathy Dementia disorder NOS Melatonin 5mg po qhs for improved sleep-wake orientation. Continue home donepezil 5 mg at night Encephalopathy most likely secondary to metabolic causes, much improved CT brain 03/12 :Cerebral atrophy and chronic ischemic small vessel vasculopathy. EEG showed mod. encephalopathy Hydromorphone 0.5 mg IV every 4 hours when necessary pain RESP: Acute respiratory failure- s/p trach 03/21 History of COPD Pulmonary artery hypertension Right pneumothorax Continue with vent support and keep sat >92% Ventilator bundle. DuoNeb scheduled and when necessary SBT trials as carley Pulm toilet, trach care CXR 04/07: Perihilar and bibasilar patchiness is stable compared to the previous examination. CV: NSTEMI Atrial fibrillation with rapid ventricular rate Cardiogenic shock Acute systolic heart failure Lactic acidosis Ischemic cardiomyopathy with ejection fraction 15-20% Moderate to severe mitral and tricuspid regurgitation History of A. fib Restart Lopressor 12.5mg BID, Lisinopril 2.5mg daily Monitor HR and BP keep MAP>65mmHg. BP meds on hold for borderline low BP. EF 15-20% , in comparison to echocardiogram on 03/04/17 EF 40% GI: IV pantoprazole 40mg BID GI is following. On tube feeds-Suplena goal 50 ml/hr status post G-tube placement : acute kidney injury- resolved Monitor renal function , I/O's, electrolytes replacement per protocol. s/p Bumex 1mg x1 04/07 ID: Candiduria 03/11 Urine culture growing Soledad and group D enterococcus(VRE) 03/14 Urine cx: C. Albicans Off abx- monitor for signs of infections ( Fever, WBC) ID has followed- Dr. Domínguez, signed off 03/22 HEME: Anemia Monitor CBC, CMP, coags s/p [id number] PRBC 03/14 and 03/29 ENDO: SSI for glycemic control. Electrolyte replacement protocol PROPH: Bilateral lower extremity SCDs. SQ Heparin, Protonix LINES: peripheral IV;s , flow manager is following for placement Palliative care following Level 3 Deepthi Griffiths MD Apr 08, 2017 11:01
[2017-04-08] MEDS: METOPROLOL TARTRATE 25 MG TAB PO SCH ×2 (14:30→21:00)
[2017-04-08] MEDS: LISINOPRIL 5 MG TAB PO SCH (14:30)
[2017-04-08] MEDS: DONEPEZIL HCL 5 MG TAB PO SCH (21:40)
[2017-04-08] MEDS: MELATONIN 5 MG TAB PO SCH (21:40)
[2017-04-08 23:00] LABS: M. TUBERCULOSIS PCR NOT DETECTED (NOT DETECT)
[2017-04-09] VITALS (27 sets, daily range): BP systolic 69–158; BP diastolic 43–98; PULSE 64–133; RESP 15–50; TEMP 97.5–99.3; O2SAT 94–100
[2017-04-09] MEDS: CHLORHEXIDINE GLUCONATE 2 % 1 PACK (2 CLOTHS) TOP SCH (03:54)
[2017-04-09] MEDS: HALOPERIDOL LACTATE 5 MG/ML AMP IV PUSH PRN (03:54)
[2017-04-09 05:51] LABS: BICARBONATE 28.3 MEQ/L (21.0-32.0); POTASSIUM 5.3 MEQ/L (3.5-5.1)
[2017-04-09 06:10] LABS: AUTOMATED NEUTROPHIL # 5.2 TH/MM3 (1.8-7.7); BASOPHIL # 0.1 TH/MM3 (0-0.2); BASOPHIL % 0.7 % (0.0-2.0); EOSINOPHIL # 0.1 TH/MM3 (0-0.4); EOSINOPHIL % 1.6 % (0.0-4.0); HEMATOCRIT 32.2 % (35.0-46.0); HEMO FLAGS DIFF FINAL; LYMPH % 24.2 % (9.0-44.0); MEAN CELL VOLUME 95.1 FL (80.0-100.0); MEAN CORPUSCULAR HEMOGLOBIN 31.2 PG (27.0-34.0); MEAN CORPUSCULAR HGB CONC 32.8 % (32.0-36.0); MONO % 9.2 % (0.0-8.0); NEUT % 64.3 % (16.0-70.0); PLATELET COUNT 354 TH/MM3 (150-450); RED BLOOD COUNT 3.39 MIL/MM3 (4.00-5.30); RED CELL DISTRIBUTION WIDTH 16.9 % (11.6-17.2); WHITE BLOOD COUNT 8.1 TH/MM3 (4.0-11.0)
[2017-04-09] MEDS: ASPIRIN 81 MG CHEW TAB CHEW SCH (09:17)
[2017-04-09] MEDS: DOCUSATE SODIUM 50 MG/SENNA 8.6 MG TAB PO SCH ×2 (09:17→20:37)
[2017-04-09] MEDS: CHLORHEXIDINE 0.12% (ORAL KIT) 15 ML CUP MT SCH ×2 (09:17→20:36)
[2017-04-09] MEDS: HEPARIN SODIUM - SQ 10,000 UNITS/ML VIAL SQ SCH ×2 (09:17→20:37)
[2017-04-09] MEDS: PANTOPRAZOLE SODIUM 40 MG VIAL IV PUSH SCH ×2 (09:17→20:39)
[2017-04-09] MEDS: METOPROLOL TARTRATE 25 MG TAB PO SCH ×2 (10:00→20:37)
[2017-04-09] MEDS: LISINOPRIL 5 MG TAB PO SCH (10:00)
--- NOTE | 2017-04-09 10:36 | HHI.CCPN ---
Subjective Remarks/Hospital Course Patient is an 82-year-old female with past medical history significant for recurrent UTIs, atrial fibrillation, hypertension, dyslipidemia, dementia who was transferred from [place] emergency department after being diagnosed for NSTEMI. She presented with chest pain and EKG showed sinus tachycardia, and troponin was elevated at 4.43. Patient was given aspirin (by EMS) and started on IV heparin infusion. Patient was transferred to [facility] ICU per Dr. Keys's request. Other abnormal labs include BNP of 1330 and potassium of 3. Previous echo showed an ejection fraction of 45%. I evaluated the patient in the ICU. Appears in moderate distress, tachypneic, tachycardic, but denies chest pain (when asked in Norwegian by RN). Patient was seen by Dr. Keys in the ICU, not a candidate for cardiac catheterization on interventions at this time. 2-D echo is pending. UA shows evidence of UTI. Started on cefepime and Diflucan (yeast present in UA). Repeat troponin and lactic acid pending at this time. SUBJ 03/12: I rounded on patient at about 0830 AM, patient was communicative tachypneic but not in severe distress. I was emergently called to the bedside at 10:30 AM patient was unresponsive agonal breathing with blood pressure 60/29 , bradycardic. Emergently started on dopamine. Patient was not protecting airway and I emergently intubated and placed on mechanical ventilation. An emergency left subclavian central line also placed. Levophed was added due to persistent hypotension. Patient appears to be in severe cardiogenic shock. EF 15 -20% down from 40% on 03/04/17. Patient also has moderate to severe MR, moderate to severe TR with moderate to severe pulmonary hypertension. I have discussed with Dr. Keys, she does not think patient is a candidate for any invasive therapy due to advanced age and comorbidities including dementia. I have updated daughter Cata 03/13: Remains intubated sedated critically ill. Remains on 3 pressors (dopamine , Neftali-Synephrine, milrinone). Urine output diminishing. Patient is in multiorgan failure prognosis poor. Family wants to continue full aggressive care palliative care is following. Urine culture showing group D enterococcus and Soledad. Cefepime discontinued Zosyn started along with vancomycin and continue Diflucan 03/14 Patient is sedated with versed and intubated. On Neosyn 200 mics and Milrinone. T: 100.0 last night. Off Dopamine 03/15 Patient remains intubated and sedated with Versed 5mg/hr, Nesoyn down 112 mics and on Milrinone. Afebrile. s/p transfusion 1unit PRBC yesterday. 03/16 No events overnight. Remains sedated with versed and intubated. On Neosyn and Milrinone. 03/17 Patient is intubated and sedated, Neosyn 100mics and Milrinone. Afebrile. 03/18 No events overnight. On Neosyn is down to 37 mics, Milrinone and sedated with Versed. Afebrile. 03/19: no changes. off pressors. remains on inotrops. remains in significant cariogenic shock and volume overload. still on versed. no improvements. off pathway. family wants aggressive care. 03/20: we have made no improvements to cardiogenic shock requiring inotropic therapy. off pathway. I had a long discussion with family and they still want aggressive care, stating "she has been closer to than this, and she always gets better." I talked about need for tracheostomy, and they are agreeable. 03/21 Patient remains intubated off sedation. Afebrile. For possible trach today. On Neosyn 30 mics and Milrinone. 03/22 Patient s/p trach and PEG tube placement yesterday. Neosyn down 10 mics, on Milrinone. 03/23 Patient is off Neosyn, on Milrinone. Tolerating tube feeds. 03/24 No events overnight. off all pressors. On PRVC with PEEP: 5 and FIO2 35%. Tolerated CPAP x 2 hrs yesterday 03/25 Patient is on CPAP PS 15, PEEP:5 and FIO2 35%. Afebrile. Tolerating tube feeds. 03/26 No events overnight. Tolerated CPAP trials x 8 hrs yesterday. 03/27: In A. fib with RVR. No tolerating CPAP due to tachypnea. Chest x-ray shows right more than left basilar infiltrate probably effusion. IV metoprolol 2.5 mg 1 and 0.25 mg IV digoxin ordered. If rate not controlled plan on Cardizem infusion. May need thoracentesis 03/28 Patient is on Levophed 8 mics, spiked fever with T: 102.7. Patient had right sided thoracentesis followed by pigtail catheter placement. CXR post procedure showed 4mm right upper PTX. CXR this morning showed no evidence of PTX, LLL atelectasis vs consolidation. 03/29: MAXIMUM TEMPERATURE 100. Currently 99.0. Currently off norepinephrine drip. Did not tolerate CPAP trial today. Arousable and follows commands. Subjective 03/30: Tmax this morning 99.3. Off all vasopressors. Tolerated PSV trial 2.5 hours today. Arousable and follows commands. Responds to Norwegian. Understanding Swedish 03/31 No events overnight. On no sedation. 04/01 No events overnight. On CPAP with PS 20, PEEP:5 and FIO2 35%. Afebrile. 04/02: No evidence overnight and no change in exam. Chest tube with virtually no output past [address] to [facility] and check a chest x-ray tomorrow morning 04/03 Patient remains on ventilator via trach. Afebrile. 04/04 No events overnight. Chest tube d/c yesterday CXR this morning decreased bibasilar consolidation and small effusions. Afebrile. 04/05 Patient remains on ventilator via trach. Tolerated CPAP for approx 10 hrs yesterday. Afebrile. On no drips. 04/06 Patient became tachypneic and tachycardic on CPAP with PS 20 last night. Given Dilaudid early this morning. Afebrile. Tolerating tube feeds. 04/07 Patient was agitated overnight, tachycardic and tachypneic given Haldol and Ativan shortly after became hypotensive and was started on Levophed currently 10 mics BP 122/72( MAP 92mmHg). Afebrile. 04/08 Patient remains on ventilator via trach. Afebrile. Off Levophed. Given Haldol last night for agitation. 04/09: TMax 98.0. Haldol dosage decreased secondary to extreme lethargy, dose was given last night. All vasopressors remain off, hemodynamically stable. Antihypertensive medications resumed today, Maintaining MAP of 60mmHg. At 1300- Patient noted to to have decreasing MAP after reinstitution of anti-HTN meds with a HR of 134 and BP 125/83, MAP now 50's. Will hold anti HTN meds and monitor BP, when stabilized will transfer to [facility], discussed with Mrs. Yin(daughter) at bedside. Objective Vital Signs Date Time Temp Pulse Resp B/P Pulse Ox O2 Delivery O2 Flow Rate FiO2 04/09/17 07:25 98 35 04/09/17 06:00 130 04/09/17 04:33 Ventilator 04/09/17 04:00 98.0 45 124/83 Intake and Output 04/08/17 04/08/17 04/09/17 08:00 16:00 00:00 Intake Total 290 ml 410 ml 365 ml Output Total 400 ml 400 ml 350 ml Balance -110 ml 10 ml 15 ml Result Diagram: 04/09/17 0448 04/09/17 0448 Imaging Last Impressions Chest X-Ray 04/07/17 0000 Signed Impressions: Service Date/Time: Friday, April 07, 2017 07:20 - CONCLUSION: 1. Perihilar and bibasilar patchiness is stable compared to the previous examination. 2. Degenerative changes and scoliosis of the thoracolumbar spine. Frederick Smyth MD Abdomen Ultrasound 03/16/17 0000 Signed Impressions: Service Date/Time: Thursday, March 16, 2017 20:35 - CONCLUSION: 1. Right renal cyst and multiple hepatic cysts. 2. Echogenic lesion in liver measures 1.8 cm likely hemangioma. Contrasted MRI may be warranted for confirmation. 3. Cholelithiasis. Evans Augustin MD Head CT 03/12/17 0000 Signed Impressions: Service Date/Time: Sunday, March 12, 2017 13:00 - CONCLUSION: 1. Cerebral atrophy and chronic ischemic small vessel vasculopathy. Evans Augustin MD Last Impressions Chest X-Ray 04/07/17 0000 Signed Impressions: Service Date/Time: Friday, April 07, 2017 07:20 - CONCLUSION: 1. Perihilar and bibasilar patchiness is stable compared to the previous examination. 2. Degenerative changes and scoliosis of the thoracolumbar spine. Frederick Smyth MD Abdomen Ultrasound 03/16/17 0000 Signed Impressions: Service Date/Time: Thursday, March 16, 2017 20:35 - CONCLUSION: 1. Right renal cyst and multiple hepatic cysts. 2. Echogenic lesion in liver measures 1.8 cm likely hemangioma. Contrasted MRI may be warranted for confirmation. 3. Cholelithiasis. Evans Augustin MD Head CT 03/12/17 0000 Signed Impressions: Service Date/Time: Sunday, March 12, 2017 13:00 - CONCLUSION: 1. Cerebral atrophy and chronic ischemic small vessel vasculopathy. Evans Augustin MD Objective Remarks GENERAL: Patient is 82 yo female on ventilator via trach,, resting comfortably SKIN: Warm and dry. No rash HEAD: Normocephalic. EYES: No scleral icterus. No injection or drainage. NECK: Supple, trachea midline. No JVD or lymphadenopathy. Trach in place CARDIOVASCULAR: Telemetry normal sinus rhythm, no murmurs, gallops, or rubs. RESPIRATORY: Breath sounds equal bilaterally, diminished at bases. No accessory muscle use on the vent. GASTROINTESTINAL: Abdomen soft, non-tender, nondistended. +PEG tube MUSCULOSKELETAL: Trace bilateral upper and lower extremity peripheral edema Neuro: On vent via trach. Moves all extremities when sedation lightened. Follows commands. A/P Assessment and Plan NEURO/PSYCH: Acute toxic metabolic encephalopathy Dementia disorder NOS Melatonin 5mg po qhs for improved sleep-wake orientation. Continue home donepezil 5 mg at night Encephalopathy most likely secondary to metabolic causes, much improved CT brain 03/12 :Cerebral atrophy and chronic ischemic small vessel vasculopathy. EEG showed mod. encephalopathy Hydromorphone 0.5 mg IV every 4 hours when necessary pain Decrease Haldol to 2.5 mg every 4 hours when necessary for agitation RESP: Acute respiratory failure- s/p trach 03/21 History of COPD Pulmonary artery hypertension Right pneumothorax Continue with vent support and keep sat >92% Ventilator bundle. DuoNeb scheduled and when necessary SBT trials as carley Pulm toilet, trach care CXR 04/07: Perihilar and bibasilar patchiness is stable compared to the previous examination. Sputum-AFB positive, TB PCR negative CV: NSTEMI Atrial fibrillation with rapid ventricular rate Cardiogenic shock Acute systolic heart failure Lactic acidosis Ischemic cardiomyopathy with ejection fraction 15-20% Moderate to severe mitral and tricuspid regurgitation History of A. fib Restart Lopressor 12.5mg BID, Lisinopril 2.5mg daily Monitor HR and BP keep MAP>65mmHg. BP meds on hold for borderline low BP. EF 15-20% , in comparison to echocardiogram on 03/04/17 EF 40% GI: IV pantoprazole 40mg BID GI is following. On tube feeds-Suplena goal 50 ml/hr status post G-tube placement : acute kidney injury- resolved Monitor renal function , I/O's, electrolytes replacement per protocol. s/p Bumex 1mg x1 04/07 ID: Candiduria 03/11 Urine culture growing Soledad and group D enterococcus(VRE) 03/14 Urine cx: C. Albicans Off abx- monitor for signs of infections ( Fever, WBC) ID has followed- Dr. Domínguez, signed off 03/22 HEME: Anemia Monitor CBC, CMP, coags s/p [id number] PRBC 03/14 and 03/29 ENDO: SSI for glycemic control. Electrolyte replacement protocol PROPH: Bilateral lower extremity SCDs. SQ Heparin, Protonix LINES: peripheral IV;s , Discussed with [facility] at bedside . unclaimed property manager is following for placement, [facility]. The patient received anti-HTN medications, MAP < 60 mmHg, will closely monitor for stabilization. BP meds held. Will resume BBlocker when clinically indicated. Palliative care following Level 3 Physician Negar Mcdaniel MD Apr 09, 2017 10:36
[2017-04-09] MEDS ORDERED: HALOPERIDOL LACTATE 5 MG/ML AMP IV PUSH PRN (12:00)
--- NOTE | 2017-04-09 13:11 | HHI.DS ---
Discharge Summary Admission Date Mar 11, 2017 at 13:24 Admitting Diagnosis (1) NSTEMI (non-ST elevation myocardial infarction) ICD Code: I21.4 Diagnosis: Principal (2) Severe sepsis ICD Code: A41.9 Diagnosis: Principal (3) Lactic acidosis ICD Code: E87.2 Diagnosis: Principal (4) Urinary tract infection ICD Code: N39.0 Diagnosis: Principal (5) Encephalopathy acute ICD Code: G93.40 Diagnosis: Principal (6) Hypotension ICD Code: I95.9 Diagnosis: Principal (7) Sinus tachycardia ICD Code: R00.0 Diagnosis: Principal (8) Hypertension ICD Code: I10 Diagnosis: Secondary (9) Dementia ICD Code: F03.90 Diagnosis: Secondary (10) CHF (congestive heart failure) ICD Code: I50.9 Diagnosis: Secondary (11) Atrial fibrillation ICD Code: I48.91 Diagnosis: Secondary Brief History Patient is an 82-year-old female with past medical history significant for recurrent UTIs, atrial fibrillation, hypertension, dyslipidemia, dementia who was transferred from [facility] emergency department after being diagnosed for NSTEMI. She presented with chest pain and EKG showed sinus tachycardia, and troponin was elevated at 4.43. Patient was given aspirin (by EMS) and started on IV heparin infusion. Patient was transferred to [facility] ICU per Dr. Keys's request. Other abnormal labs include BNP of 1330 and potassium of 3. Previous echo showed an ejection fraction of 45%. I evaluated the patient in the ICU. Appears in moderate distress, tachypneic, tachycardic, but denies chest pain (when asked in Maltese by RN). Patient was seen by Dr. Keys in the ICU, not a candidate for cardiac catheterization on interventions at this time. 2-D echo is pending. UA shows evidence of UTI. Started on cefepime and Diflucan (yeast present in UA). Repeat troponin and lactic acid pending at this time. CBC/BMP: 04/09/17 0448 04/09/17 0448 Significant Findings Laboratory Tests Test 04/07/17 04/07/17 04/08/17 04/09/17 06:01 10:15 05:52 04:48 Red Blood Count 3.51 MIL/MM3 3.19 MIL/MM3 3.39 MIL/MM3 (4.00-5.30) (4.00-5.30) (4.00-5.30) Hemoglobin 11.0 GM/DL 10.3 GM/DL 10.6 GM/DL (11.6-15.3) (11.6-15.3) (11.6-15.3) Hematocrit 34.2 % 30.8 % 32.2 % (35.0-46.0) (35.0-46.0) (35.0-46.0) Red Cell Distribution Width 17.3 % 17.3 % (11.6-17.2) (11.6-17.2) Neutrophils (%) (Auto) 74.0 % 74.6 % (16.0-70.0) (16.0-70.0) Monocytes (%) (Auto) 8.6 % (0.0-8.0) 9.2 % (0.0-8.0) Blood Urea Nitrogen 33 MG/DL (7-18) 38 MG/DL (7-18) 41 MG/DL (7-18) Random Glucose 152 MG/DL 157 MG/DL 129 MG/DL (74-106) (74-106) (74-106) B-Type Natriuretic Peptide 921 PG/ML (0-100) Blood Gas HCO3 30 mmol/L (22-26) Blood Gas Base Excess 5.4 mmol/L (-2-2) Arterial Blood pH 7.44 (7.380-7.420) Arterial Blood Partial 45 mmHg (38-42) Pressure CO2 Blood Gas Hemoglobin 9.4 G/DL (12.0-16.0) Potassium Level 5.3 MEQ/L (3.5-5.1) Chloride Level 108 MEQ/L (98-107) Hospital Course Patient is an 82-year-old female with past medical history significant for recurrent UTIs, atrial fibrillation, hypertension, dyslipidemia, dementia who was transferred from [facility] emergency department after being diagnosed for NSTEMI. She presented with chest pain and EKG showed sinus tachycardia, and troponin was elevated at 4.43. Patient was given aspirin (by EMS) and started on IV heparin infusion. Patient was transferred to [facility] ICU per Dr. Keys's request. Other abnormal labs include BNP of 1330 and potassium of 3. Previous echo showed an ejection fraction of 45%. I evaluated the patient in the ICU. Appears in moderate distress, tachypneic, tachycardic, but denies chest pain (when asked in Maltese by RN). Patient was seen by Dr. Keys in the ICU, not a candidate for cardiac catheterization on interventions at this time. 2-D echo is pending. UA shows evidence of UTI. Started on cefepime and Diflucan (yeast present in UA). Repeat troponin and lactic acid pending at this time. SUBJ 03/12: I rounded on patient at about 0830 AM, patient was communicative tachypneic but not in severe distress. I was emergently called to the bedside at 10:30 AM patient was unresponsive agonal breathing with blood pressure 60/29 , bradycardic. Emergently started on dopamine. Patient was not protecting airway and I emergently intubated and placed on mechanical ventilation. An emergency left subclavian central line also placed. Levophed was added due to persistent hypotension. Patient appears to be in severe cardiogenic shock. EF 15 -20% down from 40% on 03/04/17. Patient also has moderate to severe MR, moderate to severe TR with moderate to severe pulmonary hypertension. I have discussed with Dr. Keys, she does not think patient is a candidate for any invasive therapy due to advanced age and comorbidities including dementia. I have updated daughter Cata 03/13: Remains intubated sedated critically ill. Remains on 3 pressors (dopamine , Neftali-Synephrine, milrinone). Urine output diminishing. Patient is in multiorgan failure prognosis poor. Family wants to continue full aggressive care palliative care is following. Urine culture showing group D enterococcus and Soledad. Cefepime discontinued Zosyn started along with vancomycin and continue Diflucan 03/14 Patient is sedated with versed and intubated. On Neosyn 200 mics and Milrinone. T: 100.0 last night. Off Dopamine 03/15 Patient remains intubated and sedated with Versed 5mg/hr, Nesoyn down 112 mics and on Milrinone. Afebrile. s/p transfusion 1unit PRBC yesterday. 03/16 No events overnight. Remains sedated with versed and intubated. On Neosyn and Milrinone. 03/17 Patient is intubated and sedated, Neosyn 100mics and Milrinone. Afebrile. 03/18 No events overnight. On Neosyn is down to 37 mics, Milrinone and sedated with Versed. Afebrile. 03/19: no changes. off pressors. remains on inotrops. remains in significant cariogenic shock and volume overload. still on versed. no improvements. off pathway. family wants aggressive care. 03/20: we have made no improvements to cardiogenic shock requiring inotropic therapy. off pathway. I had a long discussion with family and they still want aggressive care, stating "she has been closer to than this, and she always gets better." I talked about need for tracheostomy, and they are agreeable. 03/21 Patient remains intubated off sedation. Afebrile. For possible trach today. On Neosyn 30 mics and Milrinone. 03/22 Patient s/p trach and PEG tube placement yesterday. Neosyn down 10 mics, on Milrinone. 03/23 Patient is off Neosyn, on Milrinone. Tolerating tube feeds. 03/24 No events overnight. off all pressors. On PRVC with PEEP: 5 and FIO2 35%. Tolerated CPAP x 2 hrs yesterday 03/25 Patient is on CPAP PS 15, PEEP:5 and FIO2 35%. Afebrile. Tolerating tube feeds. 03/26 No events overnight. Tolerated CPAP trials x 8 hrs yesterday. 03/27: In A. fib with RVR. No tolerating CPAP due to tachypnea. Chest x-ray shows right more than left basilar infiltrate probably effusion. IV metoprolol 2.5 mg 1 and 0.25 mg IV digoxin ordered. If rate not controlled plan on Cardizem infusion. May need thoracentesis 03/28 Patient is on Levophed 8 mics, spiked fever with T: 102.7. Patient had right sided thoracentesis followed by pigtail catheter placement. CXR post procedure showed 4mm right upper PTX. CXR this morning showed no evidence of PTX, LLL atelectasis vs consolidation. 03/29: MAXIMUM TEMPERATURE 100. Currently 99.0. Currently off norepinephrine drip. Did not tolerate CPAP trial today. Arousable and follows commands. Subjective 03/30: Tmax this morning 99.3. Off all vasopressors. Tolerated PSV trial 2.5 hours today. Arousable and follows commands. Responds to Maltese. Understanding [place] Citizen 03/31 No events overnight. On no sedation. 04/01 No events overnight. On CPAP with PS 20, PEEP:5 and FIO2 35%. Afebrile. 04/02: No evidence overnight and no change in exam. Chest tube with virtually no output past [address] to [facility] and check a chest x-ray tomorrow morning 04/03 Patient remains on ventilator via trach. Afebrile. 04/04 No events overnight. Chest tube d/c yesterday CXR this morning decreased bibasilar consolidation and small effusions. Afebrile. 04/05 Patient remains on ventilator via trach. Tolerated CPAP for approx 10 hrs yesterday. Afebrile. On no drips. 04/06 Patient became tachypneic and tachycardic on CPAP with PS 20 last night. Given Dilaudid early this morning. Afebrile. Tolerating tube feeds. 04/07 Patient was agitated overnight, tachycardic and tachypneic given Haldol and Ativan shortly after became hypotensive and was started on Levophed currently 10 mics BP 122/72( MAP 92mmHg). Afebrile. 04/08 Patient remains on ventilator via trach. Afebrile. Off Levophed. Given Haldol last night for agitation. 04/09: TMax 98.0. Haldol dosage decreased secondary to extreme lethargy, dose was given last night. All vasopressors remain off, hemodynamically stable. Antihypertensive medications resumed today Pt Condition on Discharge: Stable Discharge Disposition: Trnsfr to Other Facility Discharge Instructions DIET: Follow Instructions for: On Tube Feeding Activities you can perform: Continue Bedrest Additional Information Patient is an 82-year-old female with past medical history significant for recurrent UTIs, atrial fibrillation, hypertension, dyslipidemia, dementia who was transferred from [facility] emergency department after being diagnosed for NSTEMI. She presented with chest pain and EKG showed sinus tachycardia, and troponin was elevated at 4.43. Patient was given aspirin (by EMS) and started on IV heparin infusion. Patient was transferred to [facility] ICU per Dr. Keys's request. Other abnormal labs include BNP of 1330 and potassium of 3. Previous echo showed an ejection fraction of 45%. I evaluated the patient in the ICU. Appears in moderate distress, tachypneic, tachycardic, but denies chest pain (when asked in Maltese by RN). Patient was seen by Dr. Keys in the ICU, not a candidate for cardiac catheterization on interventions at this time. 2-D echo is pending. UA shows evidence of UTI. Started on cefepime and Diflucan (yeast present in UA). Repeat troponin and lactic acid pending at this time. SUBJ 03/12: I rounded on patient at about 0830 AM, patient was communicative tachypneic but not in severe distress. I was emergently called to the bedside at 10:30 AM patient was unresponsive agonal breathing with blood pressure 60/29 , bradycardic. Emergently started on dopamine. Patient was not protecting airway and I emergently intubated and placed on mechanical ventilation. An emergency left subclavian central line also placed. Levophed was added due to persistent hypotension. Patient appears to be in severe cardiogenic shock. EF 15 -20% down from 40% on 03/04/17. Patient also has moderate to severe MR, moderate to severe TR with moderate to severe pulmonary hypertension. I have discussed with Dr. Keys, she does not think patient is a candidate for any invasive therapy due to advanced age and comorbidities including dementia. I have updated daughter Cata 03/13: Remains intubated sedated critically ill. Remains on 3 pressors (dopamine , Neftali-Synephrine, milrinone). Urine output diminishing. Patient is in multiorgan failure prognosis poor. Family wants to continue full aggressive care palliative care is following. Urine culture showing group D enterococcus and Soledad. Cefepime discontinued Zosyn started along with vancomycin and continue Diflucan 03/14 Patient is sedated with versed and intubated. On Neosyn 200 mics and Milrinone. T: 100.0 last night. Off Dopamine 03/15 Patient remains intubated and sedated with Versed 5mg/hr, Nesoyn down 112 mics and on Milrinone. Afebrile. s/p transfusion 1unit PRBC yesterday. 03/16 No events overnight. Remains sedated with versed and intubated. On Neosyn and Milrinone. 03/17 Patient is intubated and sedated, Neosyn 100mics and Milrinone. Afebrile. 03/18 No events overnight. On Neosyn is down to 37 mics, Milrinone and sedated with Versed. Afebrile. 03/19: no changes. off pressors. remains on inotrops. remains in significant cariogenic shock and volume overload. still on versed. no improvements. off pathway. family wants aggressive care. 03/20: we have made no improvements to cardiogenic shock requiring inotropic therapy. off pathway. I had a long discussion with family and they still want aggressive care, stating "she has been closer to than this, and she always gets better." I talked about need for tracheostomy, and they are agreeable. 03/21 Patient remains intubated off sedation. Afebrile. For possible trach today. On Neosyn 30 mics and Milrinone. 03/22 Patient s/p trach and PEG tube placement yesterday. Neosyn down 10 mics, on Milrinone. 03/23 Patient is off Neosyn, on Milrinone. Tolerating tube feeds. 03/24 No events overnight. off all pressors. On PRVC with PEEP: 5 and FIO2 35%. Tolerated CPAP x 2 hrs yesterday 03/25 Patient is on CPAP PS 15, PEEP:5 and FIO2 35%. Afebrile. Tolerating tube feeds. 03/26 No events overnight. Tolerated CPAP trials x 8 hrs yesterday. 03/27: In A. fib with RVR. No tolerating CPAP due to tachypnea. Chest x-ray shows right more than left basilar infiltrate probably effusion. IV metoprolol 2.5 mg 1 and 0.25 mg IV digoxin ordered. If rate not controlled plan on Cardizem infusion. May need thoracentesis 03/28 Patient is on Levophed 8 mics, spiked fever with T: 102.7. Patient had right sided thoracentesis followed by pigtail catheter placement. CXR post procedure showed 4mm right upper PTX. CXR this morning showed no evidence of PTX, LLL atelectasis vs consolidation. 03/29: MAXIMUM TEMPERATURE 100. Currently 99.0. Currently off norepinephrine drip. Did not tolerate CPAP trial today. Arousable and follows commands. Subjective 03/30: Tmax this morning 99.3. Off all vasopressors. Tolerated PSV trial 2.5 hours today. Arousable and follows commands. Responds to Maltese. Understanding [place] Citizen 03/31 No events overnight. On no sedation. 04/01 No events overnight. On CPAP with PS 20, PEEP:5 and FIO2 35%. Afebrile. 04/02: No evidence overnight and no change in exam. Chest tube with virtually no output past [address] to [facility] and check a chest x-ray tomorrow morning 04/03 Patient remains on ventilator via trach. Afebrile. 04/04 No events overnight. Chest tube d/c yesterday CXR this morning decreased bibasilar consolidation and small effusions. Afebrile. 04/05 Patient remains on ventilator via trach. Tolerated CPAP for approx 10 hrs yesterday. Afebrile. On no drips. 04/06 Patient became tachypneic and tachycardic on CPAP with PS 20 last night. Given Dilaudid early this morning. Afebrile. Tolerating tube feeds. 04/07 Patient was agitated overnight, tachycardic and tachypneic given Haldol and Ativan shortly after became hypotensive and was started on Levophed currently 10 mics BP 122/72( MAP 92mmHg). Afebrile. 04/08 Patient remains on ventilator via trach. Afebrile. Off Levophed. Given Haldol last night for agitation. 04/09: TMax 98.0. Haldol dosage decreased secondary to extreme lethargy, dose was given last night. All vasopressors remain off, hemodynamically stable. Antihypertensive medications resumed today, but noted MAP decrease. Ant HTN meds on hold. 04/09: 1300: Planned [facility] evening if MAP remains above 60mmHg. Negar Mosquera MD Apr 09, 2017 13:11
--- NOTE | 2017-04-09 15:17 | HHI.IDPN ---
Subjective Subjective Remarks ID reconsulted 2/2 AFB in sputum, MTB probe neg + low grade fever Having diarrhea remains on vent back on the rate Antibiotics no abx Allergies: Coded Allergies: aspirin (Unverified Allergy, Unknown, 04/08/17) pt sts ulcer *MDRO Multi-Drug Resistant Organism (Verified Adverse Reaction, Unknown, ) VRE (urine) 03/11/17 Uncoded Allergies: antipsycotics (Allergy, Intermediate, Confusion, 03/01/17) Objective . Vital Signs Date Time Temp Pulse Resp B/P Pulse Ox O2 Delivery O2 Flow Rate FiO2 04/09/17 13:00 78 20 83/52 100 04/09/17 12:00 99.3 81 15 81/50 99 04/09/17 12:00 81 04/09/17 12:00 35 04/09/17 11:00 77 15 69/44 100 04/09/17 11:00 77 04/09/17 10:00 133 21 125/83 94 04/09/17 10:00 101 04/09/17 09:00 114 16 108/66 97 04/09/17 08:00 35 04/09/17 08:00 99.2 101 21 88/52 100 04/09/17 08:00 101 04/09/17 07:25 98 35 04/09/17 07:00 105 30 80/49 98 04/09/17 06:00 130 04/09/17 04:33 99 Ventilator 04/09/17 04:27 98 35 04/09/17 04:00 98.0 129 45 124/83 97 04/09/17 04:00 129 04/09/17 04:00 35 04/09/17 02:00 109 04/09/17 00:21 100 35 04/09/17 00:00 81 04/09/17 00:00 97.5 81 15 82/50 100 04/09/17 00:00 35 04/08/17 22:00 106 04/08/17 21:50 99 35 04/08/17 20:00 98.0 98 17 95/54 100 04/08/17 20:00 35 04/08/17 20:00 98 04/08/17 18:00 126 28 106/66 95 04/08/17 18:00 126 04/08/17 17:00 135 28 145/91 92 8/15/17 16:00 84 04/08/17 16:00 97.7 84 15 90/55 99 04/08/17 16:00 35 04/08/17 04/08/17 04/09/17 15:00 23:00 07:00 Intake Total 410 ml 365 ml 338 ml Output Total 400 ml 350 ml 600 ml Balance 10 ml 15 ml -262 ml Intake Oral 0 ml 0 ml IV Total 0 ml 0 ml Tube Feeding 350 ml 365 ml 338 ml Other 60 ml Output Urine Total 200 ml 200 ml 200 ml Stool Total 200 ml 150 ml 400 ml . Laboratory Tests Test 04/08/17 04/09/17 05:52 04:48 White Blood Count 8.9 TH/MM3 8.1 TH/MM3 Red Blood Count 3.19 MIL/MM3 3.39 MIL/MM3 Hemoglobin 10.3 GM/DL 10.6 GM/DL Hematocrit 30.8 % 32.2 % Mean Corpuscular Volume 96.3 FL 95.1 FL Mean Corpuscular Hemoglobin 32.2 PG 31.2 PG Mean Corpuscular Hemoglobin 33.4 % 32.8 % Concent Red Cell Distribution Width 17.3 % 16.9 % Platelet Count 399 TH/MM3 354 TH/MM3 Mean Platelet Volume 10.1 FL 10.4 FL Neutrophils (%) (Auto) 74.6 % 64.3 % Lymphocytes (%) (Auto) 14.8 % 24.2 % Monocytes (%) (Auto) 7.6 % 9.2 % Eosinophils (%) (Auto) 2.1 % 1.6 % Basophils (%) (Auto) 0.9 % 0.7 % Neutrophils # (Auto) 6.6 TH/MM3 5.2 TH/MM3 Lymphocytes # (Auto) 1.3 TH/MM3 2.0 TH/MM3 Monocytes # (Auto) 0.7 TH/MM3 0.7 TH/MM3 Eosinophils # (Auto) 0.2 TH/MM3 0.1 TH/MM3 Basophils # (Auto) 0.1 TH/MM3 0.1 TH/MM3 CBC Comment DIFF FINAL DIFF FINAL Differential Comment Hematology Comments Laboratory Tests Test 04/08/17 04/09/17 05:52 04:48 Sodium Level 143 MEQ/L 145 MEQ/L Potassium Level 4.6 MEQ/L 5.3 MEQ/L Chloride Level 106 MEQ/L 108 MEQ/L Carbon Dioxide Level 30.1 MEQ/L 28.3 MEQ/L Anion Gap 7 MEQ/L 9 MEQ/L Blood Urea Nitrogen 38 MG/DL 41 MG/DL Creatinine 0.57 MG/DL 0.59 MG/DL Estimat Glomerular Filtration 101 ML/MIN 97 ML/MIN Rate Random Glucose 157 MG/DL 129 MG/DL Calcium Level 9.1 MG/DL 9.2 MG/DL Microbiology Date/Time Procedure Status Source Growth 04/07/17 10:00 Gram Stain - Final Resulted Sputum Endotracheal 04/07/17 10:00 Sputum Culture - Preliminary Resulted Acid Fast Bacilli Seen Imaging Last Impressions Chest X-Ray 04/07/17 0000 Signed Impressions: Service Date/Time: Friday, April 07, 2017 07:20 - CONCLUSION: 1. Perihilar and bibasilar patchiness is stable compared to the previous examination. 2. Degenerative changes and scoliosis of the thoracolumbar spine. Frederick Smyth MD Abdomen Ultrasound 03/16/17 0000 Signed Impressions: Service Date/Time: Thursday, March 16, 2017 20:35 - CONCLUSION: 1. Right renal cyst and multiple hepatic cysts. 2. Echogenic lesion in liver measures 1.8 cm likely hemangioma. Contrasted MRI may be warranted for confirmation. 3. Cholelithiasis. Evans Augustin MD Head CT 03/12/17 0000 Signed Impressions: Service Date/Time: Sunday, March 12, 2017 13:00 - CONCLUSION: 1. Cerebral atrophy and chronic ischemic small vessel vasculopathy. Evans Augustin MD Physical Exam CONSTITUTIONAL/GENERAL: This is an adequately nourished patient, in no apparent distress. TUBES/LINES/DRAINS: SKIN: No jaundice, rashes, or lesions. Not diaphoretic. CARDIOVASCULAR: Regular rate and rhythm without murmurs, gallops, or rubs. RESPIRATORY/CHEST: Symmetric, unlabored respirations. Clear to auscultation. Breath sounds coarse, equal bilaterally. No wheezes, rales, or rhonchi. GASTROINTESTINAL: Abdomen soft, no reaction to palpation, mildly distended. GENITOURINARY: Without palpable bladder distension. Abrams catheter in place with clear yellow urine MUSCULOSKELETAL: Extremities without clubbing, 3+ diffuse edema. 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
--- NOTE | 2017-04-09 19:02 | RADRPT ---
EXAM DATE/TIME: 04/09/2017 17:11 [facility] COMPARISON: US ABDOMEN - COMPLETE, March 16, 2017, 20:35. CHEST SINGLE AP, March 17, 2017, 9:37. CHEST SINGLE AP, April 07, 2017, 7:20. INDICATIONS : Evaulate for pneumonia. RADIATION DOSE: 29.30 CTDIvol (mGy) MEDICAL HISTORY : Hypertension. Chronic obstructive pulmonary disease. SURGICAL HISTORY : None. ENCOUNTER: Initial ACUITY: 1 day PAIN SCALE: Non-responsive LOCATION: Bilateral chest TECHNIQUE: Volumetric scanning of the chest was performed. Using automated exposure control and adjustment of t he mA and/or kV according to patient size, radiation dose was kept as low as reasonably achievable to obtain optimal diagnostic quality images. DICOM format image data is available electronically for r eview and comparison. Follow-up recommendations for detected pulmonary nodules are based at a minimum on nodule size and pa tient risk factors according to Fleischner Society Guidelines. FINDINGS: LUNGS: There is a moderate right pleural effusion and a [id number] left pleural effusion. There are ac companying areas of atelectasis or consolidation seen at the posterior lung bases bilaterally. In add ition, there is consolidation seen in the left hilar and suprahilar region extending to the posterior aspect of the left upper lobe. There is consolidation or atelectasis throughout much of the medial s egment of the right middle lobe. There is diffuse interstitial disease with small nodules seen throug hout the lungs. PLEURAE: There is a moderate right pleural effusion and a [id number] left pleural effusion. MEDIASTINUM: There is a tracheostomy tube in place. Coronary artery calcifications are present. Normal size lymph nodes in the mediastinum. The consolidation in the left hilar region precludes evaluation of individu al lymph nodes in this region. AXILLAE: Within normal limits. No lymphadenopathy. MUSCULOSKELETAL: There is sclerosis at the anterior lateral right sixth rib. This is nonspecific. It is likely from a healed fracture. There is a levoscoliosis of the lumbar spine. MISCELLANEOUS: There is a G-tube in place. There are small hypodensities in the upper liver measuring up to 1.3 cm. These are nonspecific on a CT examination. Cysts were seen on ultrasound. CONCLUSION: 1. Bilateral pleural effusions being moderate on the right and mild to moderate on the left. 2. Bilateral areas of consolidation or atelectasis at the bases likely from the effusions. 3. Left hilar and perihilar consolidation. An underlying central mass cannot be excluded. 4. Right middle lobe consolidation or atelectasis. 5. Diffuse interstitial disease with fine nodules. This is nonspecific. José Miguel Dodge MD on April 09, 2017 at 18:50 Board Certified Radiologist. This report was verified electronically.
[2017-04-09] MEDS: MELATONIN 5 MG TAB PO SCH (20:39)
[2017-04-09] MEDS: DONEPEZIL HCL 5 MG TAB PO SCH (20:59)
[2017-04-10] VITALS (12 sets, daily range): BP systolic 69–131; BP diastolic 43–87; PULSE 63–120; RESP 15–24; TEMP 98.1–98.4; O2SAT 96–100
[2017-04-10] MEDS: CHLORHEXIDINE GLUCONATE 2 % 1 PACK (2 CLOTHS) TOP SCH (04:00)
[2017-04-10 07:00] LABS: BICARBONATE 29.9 MEQ/L (21.0-32.0); MAGNESIUM 2.7 MG/DL (1.5-2.5); POTASSIUM 4.2 MEQ/L (3.5-5.1)
[2017-04-10] MEDS: CHLORHEXIDINE 0.12% (ORAL KIT) 15 ML CUP MT SCH (08:00)
--- NOTE | 2017-04-10 08:36 | HHI.CCPN ---
Subjective Remarks/Hospital Course Patient is an 82-year-old female with past medical history significant for recurrent UTIs, atrial fibrillation, hypertension, dyslipidemia, dementia who was transferred from [place] emergency department after being diagnosed for NSTEMI. She presented with chest pain and EKG showed sinus tachycardia, and troponin was elevated at 4.43. Patient was given aspirin (by EMS) and started on IV heparin infusion. Patient was transferred to [facility] ICU per Dr. Keys's request. Other abnormal labs include BNP of 1330 and potassium of 3. Previous echo showed an ejection fraction of 45%. I evaluated the patient in the ICU. Appears in moderate distress, tachypneic, tachycardic, but denies chest pain (when asked in Guatemalan by RN). Patient was seen by Dr. Keys in the ICU, not a candidate for cardiac catheterization on interventions at this time. 2-D echo is pending. UA shows evidence of UTI. Started on cefepime and Diflucan (yeast present in UA). Repeat troponin and lactic acid pending at this time. SUBJ 03/12: I rounded on patient at about 0830 AM, patient was communicative tachypneic but not in severe distress. I was emergently called to the bedside at 10:30 AM patient was unresponsive agonal breathing with blood pressure 60/29 , bradycardic. Emergently started on dopamine. Patient was not protecting airway and I emergently intubated and placed on mechanical ventilation. An emergency left subclavian central line also placed. Levophed was added due to persistent hypotension. Patient appears to be in severe cardiogenic shock. EF 15 -20% down from 40% on 03/04/17. Patient also has moderate to severe MR, moderate to severe TR with moderate to severe pulmonary hypertension. I have discussed with Dr. Keys, she does not think patient is a candidate for any invasive therapy due to advanced age and comorbidities including dementia. I have updated daughter Cata 03/13: Remains intubated sedated critically ill. Remains on 3 pressors (dopamine , Neftali-Synephrine, milrinone). Urine output diminishing. Patient is in multiorgan failure prognosis poor. Family wants to continue full aggressive care palliative care is following. Urine culture showing group D enterococcus and Soledad. Cefepime discontinued Zosyn started along with vancomycin and continue Diflucan 03/14 Patient is sedated with versed and intubated. On Neosyn 200 mics and Milrinone. T: 100.0 last night. Off Dopamine 03/15 Patient remains intubated and sedated with Versed 5mg/hr, Nesoyn down 112 mics and on Milrinone. Afebrile. s/p transfusion 1unit PRBC yesterday. 03/16 No events overnight. Remains sedated with versed and intubated. On Neosyn and Milrinone. 03/17 Patient is intubated and sedated, Neosyn 100mics and Milrinone. Afebrile. 03/18 No events overnight. On Neosyn is down to 37 mics, Milrinone and sedated with Versed. Afebrile. 03/19: no changes. off pressors. remains on inotrops. remains in significant cariogenic shock and volume overload. still on versed. no improvements. off pathway. family wants aggressive care. 03/20: we have made no improvements to cardiogenic shock requiring inotropic therapy. off pathway. I had a long discussion with family and they still want aggressive care, stating "she has been closer to than this, and she always gets better." I talked about need for tracheostomy, and they are agreeable. 03/21 Patient remains intubated off sedation. Afebrile. For possible trach today. On Neosyn 30 mics and Milrinone. 03/22 Patient s/p trach and PEG tube placement yesterday. Neosyn down 10 mics, on Milrinone. 03/23 Patient is off Neosyn, on Milrinone. Tolerating tube feeds. 03/24 No events overnight. off all pressors. On PRVC with PEEP: 5 and FIO2 35%. Tolerated CPAP x 2 hrs yesterday 03/25 Patient is on CPAP PS 15, PEEP:5 and FIO2 35%. Afebrile. Tolerating tube feeds. 03/26 No events overnight. Tolerated CPAP trials x 8 hrs yesterday. 03/27: In A. fib with RVR. No tolerating CPAP due to tachypnea. Chest x-ray shows right more than left basilar infiltrate probably effusion. IV metoprolol 2.5 mg 1 and 0.25 mg IV digoxin ordered. If rate not controlled plan on Cardizem infusion. May need thoracentesis 03/28 Patient is on Levophed 8 mics, spiked fever with T: 102.7. Patient had right sided thoracentesis followed by pigtail catheter placement. CXR post procedure showed 4mm right upper PTX. CXR this morning showed no evidence of PTX, LLL atelectasis vs consolidation. 03/29: MAXIMUM TEMPERATURE 100. Currently 99.0. Currently off norepinephrine drip. Did not tolerate CPAP trial today. Arousable and follows commands. Subjective 03/30: Tmax this morning 99.3. Off all vasopressors. Tolerated PSV trial 2.5 hours today. Arousable and follows commands. Responds to Guatemalan. Understanding Nepali 03/31 No events overnight. On no sedation. 04/01 No events overnight. On CPAP with PS 20, PEEP:5 and FIO2 35%. Afebrile. 04/02: No evidence overnight and no change in exam. Chest tube with virtually no output past [address] to [facility] and check a chest x-ray tomorrow morning 04/03 Patient remains on ventilator via trach. Afebrile. 04/04 No events overnight. Chest tube d/c yesterday CXR this morning decreased bibasilar consolidation and small effusions. Afebrile. 04/05 Patient remains on ventilator via trach. Tolerated CPAP for approx 10 hrs yesterday. Afebrile. On no drips. 04/06 Patient became tachypneic and tachycardic on CPAP with PS 20 last night. Given Dilaudid early this morning. Afebrile. Tolerating tube feeds. 04/07 Patient was agitated overnight, tachycardic and tachypneic given Haldol and Ativan shortly after became hypotensive and was started on Levophed currently 10 mics BP 122/72( MAP 92mmHg). Afebrile. 04/08 Patient remains on ventilator via trach. Afebrile. Off Levophed. Given Haldol last night for agitation. 04/09: TMax 98.0. Haldol dosage decreased secondary to extreme lethargy, dose was given last night. All vasopressors remain off, hemodynamically stable. Antihypertensive medications resumed today, Maintaining MAP of 60mmHg. At 1300- Patient noted to to have decreasing MAP after reinstitution of anti-HTN meds with a HR of 134 and BP 125/83, MAP now 50's. Will hold anti HTN meds and monitor BP, when stabilized will transfer to [facility], discussed with Mrs. Yin(daughter) at bedside. 04/10: Afebrile. Patient's MAP was noted to be decreased after administration of 2.5 mg of Haldol last evening, as preventing transferred to [facility], as map was < 60 mmHG. Haldol has been discontinued. Klonopin will be reinitiated if needed, patient's home medication. Throughout the night the patient's MAP has been greater than 60mmHg. No acute events through out the night. Objective Vital Signs Date Time Temp Pulse Resp B/P Pulse Ox O2 Delivery O2 Flow Rate FiO2 04/10/17 07:36 98 35 04/10/17 06:00 89 04/10/17 04:00 98.1 24 131/87 04/09/17 04:33 Ventilator Intake and Output 04/09/17 04/09/17 04/09/17 07:59 15:59 23:59 Intake Total 338 ml 465 ml 386 ml Output Total 600 ml 600 ml 425 ml Balance -262 ml -135 ml -39 ml Result Diagram: 04/09/17 0448 04/10/17 0542 Imaging Last Impressions Chest X-Ray 04/07/17 0000 Signed Impressions: Service Date/Time: Friday, April 07, 2017 07:20 - CONCLUSION: 1. Perihilar and bibasilar patchiness is stable compared to the previous examination. 2. Degenerative changes and scoliosis of the thoracolumbar spine. Frederick Smyth MD Abdomen Ultrasound 03/16/17 0000 Signed Impressions: Service Date/Time: Thursday, March 16, 2017 20:35 - CONCLUSION: 1. Right renal cyst and multiple hepatic cysts. 2. Echogenic lesion in liver measures 1.8 cm likely hemangioma. Contrasted MRI may be warranted for confirmation. 3. Cholelithiasis. Evans Augustin MD Head CT 03/12/17 0000 Signed Impressions: Service Date/Time: Sunday, March 12, 2017 13:00 - CONCLUSION: 1. Cerebral atrophy and chronic ischemic small vessel vasculopathy. Evans Augustin MD Last Impressions Chest X-Ray 04/07/17 0000 Signed Impressions: Service Date/Time: Friday, April 07, 2017 07:20 - CONCLUSION: 1. Perihilar and bibasilar patchiness is stable compared to the previous examination. 2. Degenerative changes and scoliosis of the thoracolumbar spine. Frederick Smyth MD Abdomen Ultrasound 03/16/17 0000 Signed Impressions: Service Date/Time: Thursday, March 16, 2017 20:35 - CONCLUSION: 1. Right renal cyst and multiple hepatic cysts. 2. Echogenic lesion in liver measures 1.8 cm likely hemangioma. Contrasted MRI may be warranted for confirmation. 3. Cholelithiasis. Evans Augustin MD Head CT 03/12/17 0000 Signed Impressions: Service Date/Time: Sunday, March 12, 2017 13:00 - CONCLUSION: 1. Cerebral atrophy and chronic ischemic small vessel vasculopathy. Evans Augustin MD Objective Remarks GENERAL: Patient is 82 yo female on ventilator via trach,, resting comfortably SKIN: Warm and dry. No rash HEAD: Normocephalic. EYES: No scleral icterus. No injection or drainage. NECK: Supple, trachea midline. No JVD or lymphadenopathy. Trach in place CARDIOVASCULAR: Telemetry normal sinus rhythm, no murmurs, gallops, or rubs. RESPIRATORY: Breath sounds equal bilaterally, diminished at bases. No accessory muscle use on the vent. GASTROINTESTINAL: Abdomen soft, non-tender, nondistended. +PEG tube MUSCULOSKELETAL: Trace bilateral upper and lower extremity peripheral edema Neuro: On vent via trach. Moves all extremities. Follows commands. A/P Assessment and Plan NEURO/PSYCH: Acute toxic metabolic encephalopathy Dementia disorder NOS Continue home donepezil 5 mg at night Encephalopathy most likely secondary to metabolic causes, much improved CT brain 03/12 :Cerebral atrophy and chronic ischemic small vessel vasculopathy. EEG showed mod. encephalopathy Hydromorphone 0.5 mg IV every 4 hours when necessary pain Discontinue Haldol, consider Klonipin if needed. RESP: Acute respiratory failure- s/p trach 03/21 History of COPD Pulmonary artery hypertension Right pneumothorax Continue with vent support and keep sat >92% Ventilator bundle. DuoNeb scheduled and when necessary SBT trials as carley Pulm toilet, trach care CXR 04/07: Perihilar and bibasilar patchiness is stable compared to the previous examination. Sputum-AFB positive, TB PCR negative CV: NSTEMI Atrial fibrillation with rapid ventricular rate Cardiogenic shock Acute systolic heart failure Lactic acidosis Ischemic cardiomyopathy with ejection fraction 15-20% Moderate to severe mitral and tricuspid regurgitation History of A. fib Restart Lopressor 12.5mg BID, Lisinopril 2.5mg daily Monitor HR and BP keep MAP>65mmHg. BP meds on hold for borderline low BP. EF 15-20% , in comparison to echocardiogram on 03/04/17 EF 40% GI: IV pantoprazole 40mg BID GI is following. On tube feeds-Suplena goal 50 ml/hr status post G-tube placement : acute kidney injury- resolved Monitor renal function , I/O's, electrolytes replacement per protocol. s/p Bumex 1mg x1 04/07 ID: Candiduria 03/11 Urine culture growing Soledad and group D enterococcus(VRE) 03/14 Urine cx: C. Albicans Off abx- monitor for signs of infections ( Fever, WBC) ID has followed- Dr. Domínguez, signed off 03/22 HEME: Anemia Monitor CBC, CMP, coags s/p [id number] PRBC 03/14 and 03/29 ENDO: SSI for glycemic control. Electrolyte replacement protocol PROPH: Bilateral lower extremity SCDs. SQ Heparin, Protonix LINES: peripheral IV;s , Discussed with Brenda Humphrey and provided medical update and BUILDING INSPECTOR (Scott) at bedside. All questions answered . global sales manager is following for placement, planned [facility]. The patient received anti-HTN medications, MAP < 60 mmHg, will closely monitor for stabilization. BP meds held. Will resume B Carin when clinically indicated. Palliative care following Level 3 Physician Negar Mcdaniel MD Apr 10, 2017 08:36
[2017-04-10] MEDS: HEPARIN SODIUM - SQ 10,000 UNITS/ML VIAL SQ SCH (08:56)
[2017-04-10] MEDS: METOPROLOL TARTRATE 25 MG TAB PO SCH (08:56)
[2017-04-10] MEDS: DOCUSATE SODIUM 50 MG/SENNA 8.6 MG TAB PO SCH (08:56)
[2017-04-10] MEDS: ASPIRIN 81 MG CHEW TAB CHEW SCH (08:56)
[2017-04-10] MEDS: PANTOPRAZOLE SODIUM 40 MG VIAL IV PUSH SCH (08:57)
== END 2017-04-10 14:30 | DRG 4 ==
LOC: NEDDLT 13:14 → HIME 13:24
PROVIDERS: ADMIT Internal Medicine; ATTEND Internal Medicine
PROC: 04HY32Z Insertion of Monitoring Device into Lower Artery, Percutaneous Approach (ICD-10-PCS; 2017-03-12)
PROC: 0BH17EZ Insertion of Endotracheal Airway into Trachea, Via Natural or Artificial Opening (ICD-10-PCS; 2017-03-12)
PROC: 5A1955Z Respiratory Ventilation, Greater than 96 Consecutive Hours (ICD-10-PCS; 2017-03-12)
PROC: 02HV33Z Insertion of Infusion Device into Superior Vena Cava, Percutaneous Approach (ICD-10-PCS; 2017-03-12)
PROC: 30233N1 Transfusion of Nonautologous Red Blood Cells into Peripheral Vein, Percutaneous Approach (ICD-10-PCS; 2017-03-14)
PROC: 0DH63UZ Insertion of Feeding Device into Stomach, Percutaneous Approach (ICD-10-PCS; 2017-03-21)
PROC: 0BJ08ZZ Inspection of Tracheobronchial Tree, Via Natural or Artificial Opening Endoscopic (ICD-10-PCS; 2017-03-21)
PROC: 0B113F4 Bypass Trachea to Cutaneous with Tracheostomy Device, Percutaneous Approach (ICD-10-PCS; principal; 2017-03-21 14:55)
PROC: 5A1955Z Respiratory Ventilation, Greater than 96 Consecutive Hours (ICD-10-PCS; 2017-03-21 14:55)
PROC: 0W9930Z Drainage of Right Pleural Cavity with Drainage Device, Percutaneous Approach (ICD-10-PCS; 2017-03-27)
DX: A41.9 Sepsis, unspecified organism (principal); I21.4 Non-ST elevation (NSTEMI) myocardial infarction; G92 Toxic encephalopathy; I50.21 Acute systolic (congestive) heart failure; R57.0 Cardiogenic shock; R65.21 Severe sepsis with septic shock; J90 Pleural effusion, not elsewhere classified; N17.9 Acute kidney failure, unspecified; I48.91 Unspecified atrial fibrillation; J96.00 Acute respiratory failure, unspecified whether with hypoxia or hypercapnia; B37.49 Other urogenital candidiasis; E87.2 Acidosis; N39.0 Urinary tract infection, site not specified; K52.1 Toxic gastroenteritis and colitis; J98.11 Atelectasis; J93.9 Pneumothorax, unspecified; I27.2 Other secondary pulmonary hypertension; F03.90 Unspecified dementia, unspecified severity, without behavioral disturbance, psychotic disturbance, mood disturbance, and anxiety; I08.1 Rheumatic disorders of both mitral and tricuspid valves; D64.9 Anemia, unspecified; E78.5 Hyperlipidemia, unspecified; I25.5 Ischemic cardiomyopathy; E87.6 Hypokalemia; J44.9 Chronic obstructive pulmonary disease, unspecified; R00.0 Tachycardia, unspecified; B95.2 Enterococcus as the cause of diseases classified elsewhere; Z16.21 Resistance to vancomycin; T36.95XA Adverse effect of unspecified systemic antibiotic, initial encounter; L89.892 Pressure ulcer of other site, stage 2; I25.10 Atherosclerotic heart disease of native coronary artery without angina pectoris; R13.10 Dysphagia, unspecified; I11.0 Hypertensive heart disease with heart failure; L98.8 Other specified disorders of the skin and subcutaneous tissue; Z87.440 Personal history of urinary (tract) infections; Z87.891 Personal history of nicotine dependence; M77.32 Calcaneal spur, left foot; M79.89 Other specified soft tissue disorders; K21.9 Gastro-esophageal reflux disease without esophagitis; Z79.899 Other long term (current) drug therapy
CPT/HCPCS: 31500; 31600; 31624; 32551; 32554; 36430; 36556; 36600; 70450; 71010; 71250; 76700; 76937; 80048; 80053; 80162; 80202; 81001; 82272; 82805; 82948; 83605; 83735; 83880; 84100; 84132; 84295; 84484; 85007; 85014; 85018; 85025; 85027; 85610; 85730; 86850; 86900; 86901; 86920; 87015; 87040; 87070; 87077; 87086; 87106; 87116; 87186; 87205; 87206; 87493; 87556; 87641; 87798; 93005; 93306; 94002; 94003; 94640; 94664; 95819; 96360; C9113; G0378; J0692; J0696; J0713; J1160; J1170; J1205; J1265; J1630; J1644; J1720; J1940; J2020; J2060; J2250; J2260; J2270; J2370; J2543; J2765; J2997; J3010; J3370; J3475; J3480; J7030; J7040; J7042; J7050; J7060; P9016; P9047